=== PATIENT | female | born 1960 | race Caucasian/White ===

== ENCOUNTER 2016-11-15 11:39 | Inpatient (IN) | payer BC, MEDICAID ==
[2016-11-15] MEDS ORDERED: IPRATROPIUM/ALBUTEROL 0.5-2.5 MG/3 ML AMPUL NEB ONE (11:46)
--- NOTE | 2016-11-15 11:51 | ER Document Report ---
ED Medical Screen (RME) - General Stated Complaint: CHEST PAIN Time seen by provider: 11:48 Mode of Arrival: Wheelchair Information source: Patient Notes: 56-year-old COPD year with respiratory distress tachypnea, shortness of breath, chest pain, pulse ox 82%. She wears oxygen 3 L nasal cannula at home. sHe taken to room 4 and asked the nurses to start DuoNeb and place on the organizational research consultant. I called Dr. SCHAFFER to have provider see the patient immediately. I have greeted and performed a rapid initial assessment of this patient. A comprehensive ED assessment, evaluation of the patient, analysis of test results , and completion of the medical decision making process will be contacted by additional ED providers. TRAVEL OUTSIDE OF THE [place] IN LAST 30 DAYS: No - Related Data Allergies/Adverse Reactions: doxepin [Doxepin] Allergy (Verified 09/02/16 19:54) Shortness of Breath, Swelling etodolac [Etodolac] Allergy (Verified 09/02/16 19:54) loratadine [Loratadine] Allergy (Verified 09/02/16 19:54) Shortness of Breath, Swelling meloxicam [Meloxicam] Allergy (Verified 09/02/16 19:54) Sulfa (Sulfonamide Antibiotics) Allergy (Verified 09/02/16 19:54) Shortness of Breath, Swelling Past Medical History Pulmonary Medical History: Reports: Hx Asthma, Hx Bronchitis, Hx COPD - O2 dependent, 3 L nasal cannula, Hx Pneumonia - Recurrent pseudomonal pneumonia Neurological Medical History: Reports: Hx Migraine Endocrine Medical History: Denies: Hx Diabetes Mellitus Type 1, Hx Diabetes Mellitus Type 2 GI Medical History: Reports: Hx Gastroesophageal Reflux Disease Traumatic Medical History: Reports: Hx Pneumothorax - x4 R lung, 2010 when the patient had a right lung bx required a chest tube Past Surgical History: Reports: Hx Gynecologic Surgery, Hx Hysterectomy, Hx Tonsillectomy, Hx Tubal Ligation - Immunizations Hx Diphtheria, Pertussis, Tetanus Vaccination: Yes
--- NOTE | 2016-11-15 12:01 | ER Document Report ---
ED Respiratory Problem - General Mode of Arrival: Wheelchair Information source: Patient TRAVEL OUTSIDE OF THE [place] IN LAST 30 DAYS: No - HPI Patient complains to provider of: Cough, Short of breath Onset: Other - 2 days ago Duration: Worse/persistent Context: Other - see above Cough: Productive Sputum color: Green Associated symptoms: Other - see above <FABINA VIVEROS - Last Filed: 11/15/16 13:08> <CHAPO BEGUM - Last Filed: 11/15/16 13:36> - General Chief Complaint: Shortness Of Breath Stated Complaint: CHEST PAIN Notes: 56 year old female with history of COPD, bronchitis, pneumonia, and asthma presents to the ED complaining of shortness of breath that started 2 days ago. Patient states that she has been using breathing treatments at home, but they have only been helping temporarily. Patient states that she was hoping that the breathing treatments would have worked better and is the reason she waited so long before coming in. Patient is additionally complaining of a productive cough with green sputum. (FABIAN VIVEROS) - Related Data Allergies/Adverse Reactions: doxepin [Doxepin] Allergy (Verified 09/02/16 19:54) Shortness of Breath, Swelling etodolac [Etodolac] Allergy (Verified 09/02/16 19:54) loratadine [Loratadine] Allergy (Verified 09/02/16 19:54) Shortness of Breath, Swelling meloxicam [Meloxicam] Allergy (Verified 09/02/16 19:54) Sulfa (Sulfonamide Antibiotics) Allergy (Verified 09/02/16 19:54) Shortness of Breath, Swelling Past Medical History - General Information source: Patient - Social History Smoking Status: Current Every Day Smoker Family History: Hyperlipidemia, Hypertension Pulmonary Medical History: Reports: Hx Asthma, Hx Bronchitis, Hx COPD - O2 dependent, 3 L nasal cannula [id number] Deficiency, Hx Pneumonia - Recurrent pseudomonal pneumonia, Other - Right lung pneumothorax x4 secondary to lung biopsy in 2010 Neurological Medical History: Reports: Hx Migraine GI Medical History: Reports: Hx Gastroesophageal Reflux Disease Traumatic Medical History: Reports: Hx Pneumothorax - x4 R lung, 2010 when the patient had a right lung bx required a chest tube Past Surgical History: Reports: Hx Gynecologic Surgery, Hx Hysterectomy, Hx Tonsillectomy, Hx Tubal Ligation - Immunizations Hx Diphtheria, Pertussis, Tetanus Vaccination: Yes Hx Pneumococcal Vaccination: 04/25/09 <FABIAN VIVEROS - Last Filed: 11/15/16 13:08> Review of Systems - Review of Systems Constitutional: No symptoms reported EENT: No symptoms reported Cardiovascular: No symptoms reported Respiratory: See HPI, Cough - productive green sputum, Short of breath Gastrointestinal: No symptoms reported Genitourinary: No symptoms reported Female Genitourinary: No symptoms reported Musculoskeletal: No symptoms reported Skin: No symptoms reported Hematologic/Lymphatic: No symptoms reported Neurological/Psychological: No symptoms reported -: Yes All other systems reviewed and negative <FABIAN VIVEROS - Last Filed: 11/15/16 13:08> Physical Exam - General General appearance: Alert - HEENT Head: Normocephalic, Atraumatic Eyes: Normal Extraocular movements intact: Yes Pupils: PERRL - Respiratory Respiratory status: Retractions, Tachypnea. No: No respiratory distress Breath sounds: Rhonchi, Wheezing, Other - markedly diminished lung sounds on the left - Cardiovascular Rhythm: Regular, Tachycardia Heart sounds: Normal auscultation - Abdominal Inspection: Normal - Back Back: Normal - Extremities General upper extremity: Normal inspection, Normal ROM General lower extremity: Normal inspection, Normal ROM - Neurological Neuro grossly intact: Yes - Psychological Associated symptoms: Normal affect, Normal mood - Skin Skin Temperature: Warm Skin Moisture: Dry Skin Color: Normal <FABIAN VIVEROS - Last Filed: 11/15/16 13:08> Course - Laboratory Result Diagrams: 11/15/16 12:30 11/15/16 12:30 <FABIAN VIVEROS - Last Filed: 11/15/16 13:08> - Laboratory Result Diagrams: 11/15/16 12:30 11/15/16 12:30 - Diagnostic Test Radiology reviewed: Image reviewed, Reports reviewed - A large left lower lobe infiltrate obscuring the hilum - EKG Interpretation by Me EKG shows normal: Sinus rhythm, Stamping [place], Intervals. abnormal: QRS Complexes, ST-T Waves - Inferior T abnormalities Rate: Tachycardia - 127 Stamping Ground/QRS: LPHB/LPFB Voltage: Consistant with LVH - Consults Dr. Henderson Time consulted: 13:33 Consulted provider: will come to ER <CHAPO BEGUM - Last Filed: 11/15/16 13:36> - Re-evaluation Re-evalutation: 11/15/16 12:32 PROCEEDURE: ABG obtained by me from the right radial artery at the wrist. The skin was prepped with alcohol prior to obtaining the blood gas. It was obtained without difficulty on the first stick. A 2 x 2 was placed over the puncture site and held down using a Band-Aid to put pressure on the puncture site. Patient reports her breathing is a little bit better with the BiPAP. (CHAPO BEGUM) - Vital Signs Vital signs: Temp Pulse Resp BP Pulse Ox 35 H 92/69 L 91 L 11/15/16 13:01 11/15/16 13:01 11/15/16 13:01 - Laboratory Laboratory results interpreted by me: 11/15/16 11/15/16 11/15/16 12:30 12:30 12:30 WBC 23.8 H RDW 16.1 H Plt Count 133 L Band Neutrophils % 15 H Lymphocytes % (Manual) 5 L Abs Neuts (Manual) 21.9 H Carbonic Acid 2.00 H ABG pH 7.34 L ABG pCO2 66.3 H ABG pO2 41.8 L ABG HCO3 35.0 H ABG Total CO2 37.0 H ABG O2 Saturation 72.7 L Chloride 91 L Carbon Dioxide 36 H Total Bilirubin 1.4 H Critical Care Note - Critical Care Note Total time excluding time spent on procedures (mins): 45 <CHAPO BEGUM - Last Filed: 11/15/16 13:36> Discharge <FABIAN VIVEROS - Last Filed: 11/15/16 13:08> - Discharge Admitting Provider: Hospitalist Unit Admitted: ICU <CHAPO BEGUM - Last Filed: 11/15/16 13:36> - Discharge Clinical Impression: COPD with respiratory distress, acute, Acute respiratory failure with hypoxia Pneumonia Qualifiers: Pneumonia type: due to unspecified organism Laterality: left Lung location: upper lobe of lung Qualified Code(s): J18.1 - Lobar pneumonia, unspecified organism Condition: Fair Disposition: ADMITTED INPATIENT Scribe Attestation: 11/15/16 13:35 I personally performed the services described in the documentation, reviewed and edited the documentation which was dictated to the scribe in my presence, and it accurately records my words and actions. (CHAPO BEGUM) Scribe Documentation - Scribe Written by Scribe:: Pankaj Desir, 11/15/2016 12:20 acting as scribe for :: Margo <FABIAN VIVEROS - Last Filed: 11/15/16 13:08>
[2016-11-15] MEDS ORDERED: AZITHROMYCIN INJ 500 MG VIAL IV ONE (12:25)
[2016-11-15] MEDS ORDERED: CEFTRIAXONE 1 GM/D5W RTU 50 ML IV ONE (12:25)
[2016-11-15] MEDS ORDERED: ALBUTEROL SULFATE 0.083% NEB 2.5 MG/3 ML AMPUL NEB ONE (12:33)
[2016-11-15] MEDS ORDERED: METHYLPREDNISOLONE INJ 125 MG/2 ML SDV IV ONE (12:33)
[2016-11-15] MEDS ORDERED: MAGNESIUM SULFATE/D5W 100 ML IV ONE (12:34)
[2016-11-15 12:56] LABS: ARTERIAL BLOOD BASE EXCESS 6.6 mmol/L; ARTERIAL BLOOD O2 SATURATION 72.7 % (94-98)
[2016-11-15 12:57] LABS: HEMOGLOBIN 14.5 g/dL (12.0-15.5); HGB HCT DIFFERENCE -1.5; MEAN CORPUSCULAR HEMOGLOBIN 29.6 pg (27.0-33.4); MEAN CORPUSCULAR HGB CONC 32.2 g/dL (32.0-36.0); MEAN CORPUSCULAR VOLUME 92 fl (80-97); RED CELL DISTRIBUTION WIDTH 16.1 % (11.5-14.0); WHITE BLOOD COUNT 23.8 10^3/uL (4.0-10.5)
[2016-11-15 13:12] LABS: BASOPHILS % (MANUAL) 0 % (0-2); EOSINOPHILS % (MANUAL) 0 % (0-6); LYMPHOCYTES % (MANUAL) 5 % (13-45); TOTAL CELLS COUNTED 100
[2016-11-15 13:13] LABS: BAND NEUTROPHILS % (MANUAL) 15 % (3-5); RBC MORPHOLOGY COMMENT NORMO-CYTIC/CHROMIC
[2016-11-15 13:18] LABS: ALANINE AMINOTRANSFERASE 32 U/L (9-52); ALBUMIN 4.2 g/dL (3.5-5.0); ALKALINE PHOSPHATASE 72 U/L (38-126); ANION GAP 14 (5-19); ASPARTATE AMINO TRANSFERASE 25 U/L (14-36); BILIRUBIN,TOTAL 1.4 mg/dL (0.2-1.3); BLOOD UREA NITROGEN 18 mg/dL (7-20); CALCIUM 9.4 mg/dL (8.4-10.2); CARBON DIOXIDE 36 mmol/L (22-30); CHLORIDE 91 mmol/L (98-107); CREATINE KINASE 32 U/L (30-135); CREATININE RESULT 0.62 mg/dL (0.52-1.25); GLUCOSE 99 mg/dL (75-110); MAGNESIUM 1.7 mg/dL (1.6-2.3); POTASSIUM 4.5 mmol/L (3.6-5.0); SODIUM 140.9 mmol/L (137-145)
[2016-11-15 13:28] LABS: CREATINE KINASE MB 1.1 ng/mL (<4.55); TROPONIN I 0.02 ng/mL
[2016-11-15] MEDS ORDERED: NORMAL SALINE 1000 ML 200 ML IV ONE (13:29)
[2016-11-15] MEDS ORDERED: NORMAL SALINE 1000 ML 250 ML IV ONE (13:31)
[2016-11-15] MEDS ORDERED: NORMAL SALINE 1000 ML 1,000 ML IV PRN (14:23)
[2016-11-15] MEDS ORDERED: PIPERACILLIN/TAZOBACTAM 3.375 GM VIAL IV SCH (14:45)
--- NOTE | 2016-11-15 14:49 | PDOC H&P ---
History of Present Illness Admission Date/PCP: 11/15/16 13:59 LUH MARTINS MD Patient complains of: Shortness of breath History of Present Illness: AUDIE KIMBLE is a 56 year old female, with history of COPD in chronic smoker , chronic hypoxemic respiratory failure on 3 L nasal cannula oxygen at home, alpha-1 antitrypsin deficiency, pseudomonas pneumonia, presents to the hospital with shortness of breath of 3 days' duration. It is associated with pleuritic chest pain as well as cough productive of greenish phlegm. There is intermittent low-grade fever and occasional sweating. There is no recent traveling or exposure to someone sick with a virus or tuberculosis. The patient had intermittent sore throat for the past few days subsequently started to develop shortness of breath and wheezing 3 days ago and eventual pleurisy. There is no diaphoresis. No nausea or vomiting. Patient is unable to lay flat in bed. Patient went to the emergency room in the left upper lobe infiltrate was noted on chest x-ray. Patient was given intravenous antibiotic, bronchodilators, and a dose of intravenous steroid and was referred for admission. Past Medical History Past Medical History: Medication reconciliation pending verification from the patient's pharmacist. Pulmonary Medical History: Reports: Asthma, Bronchitis, Chronic Obstructive Pulmonary Disease (COPD) - O2 dependent, 3 L nasal cannula [id number] Deficiency, Pneumonia - Recurrent pseudomonal pneumonia, Other - Right lung pneumothorax x4 secondary to lung biopsy in 2010 Neurological Medical History: Reports: Migraine Endocrine Medical History: Reports: Other - Alpha-1 antitrypsin deficiency Denies: Diabetes Mellitus Type 1, Diabetes Mellitus Type 2 GI Medical History: Reports: Gastroesophageal Reflux Disease Traumatic Medical History: Reports: Pneumothorax - x4 R lung, 2010 when the patient had a right lung bx required a chest tube Past Surgical History Past Surgical History: Reports: Hysterectomy, Tonsillectomy, Tubal Ligation Social History Information Source: Patient Smoking Status: Current Every Day Smoker Frequency of Alcohol Use: None Hx Recreational Drug Use: No Drugs: None Hx Prescription Drug Abuse: No Family History Family History: Hyperlipidemia, Hypertension Parental Family History Reviewed: Yes Children Family History Reviewed: Yes Sibling(s) Family History Reviewed.: Yes Medication/Allergy Home Medications: No Home Medications 11/15/16 Allergies/Adverse Reactions: doxepin [Doxepin] Allergy (Verified 09/02/16 19:54) Shortness of Breath, Swelling etodolac [Etodolac] Allergy (Verified 09/02/16 19:54) loratadine [Loratadine] Allergy (Verified 09/02/16 19:54) Shortness of Breath, Swelling meloxicam [Meloxicam] Allergy (Verified 09/02/16 19:54) Sulfa (Sulfonamide Antibiotics) Allergy (Verified 09/02/16 19:54) Shortness of Breath, Swelling Review of Systems Constitutional: PRESENT: chills, fever(s), weakness - Generalized. ABSENT: headache(s), night sweats, weight gain, weight loss Eyes: ABSENT: visual disturbances Ears: ABSENT: hearing changes Nose, Mouth, and Throat: PRESENT: sore throat. ABSENT: mouth pain, vertigo Cardiovascular: PRESENT: chest pain, dyspnea on exertion - Chronic worse per the past few days. ABSENT: edema, orthropnea, palpitations Respiratory: PRESENT: dyspnea, sputum - Greenish. ABSENT: cough, hemoptysis Gastrointestinal: ABSENT: abdominal pain, bloating, constipation, diarrhea, hematemesis, hematochezia, melena, nausea, vomiting Genitourinary: ABSENT: dysuria, hematuria Musculoskeletal: ABSENT: joint swelling Integumentary: ABSENT: pruritus, rash, wounds Neurological: ABSENT: abnormal gait, abnormal speech, confusion, dizziness, focal weakness, syncope Psychiatric: ABSENT: anxiety, depression, homidical ideation, suicidal ideation Endocrine: ABSENT: cold intolerance, heat intolerance, polydipsia, polyphagia, polyuria Hematologic/Lymphatic: ABSENT: easy bleeding, easy bruising Physical Exam Vital Signs: Temp Pulse Resp BP Pulse Ox 33 H 93/67 L 93 11/15/16 13:43 11/15/16 13:43 11/15/16 13:43 General appearance: PRESENT: cooperative, mild distress, thin, other - On BiPAP Head exam: PRESENT: atraumatic, normocephalic Eye exam: PRESENT: conjunctiva pink, EOMI, PERRLA. ABSENT: scleral icterus Ear exam: PRESENT: normal external ear exam. ABSENT: drainage Mouth exam: PRESENT: dry mucosa, neck supple, tongue midline. ABSENT: laceration Throat exam: ABSENT: post pharyngeal erythema, tonsillar exudate Neck exam: ABSENT: carotid bruit, JVD, lymphadenopathy, thyromegaly Respiratory exam: PRESENT: crackles - Left side, wheezes - Mild posteriorly bilateral. ABSENT: rales, rhonchi Cardiovascular exam: PRESENT: RRR, +S1, +S2, tachycardia. ABSENT: diastolic murmur, rubs, systolic murmur Pulses: PRESENT: normal dorsalis pedis pul Vascular exam: PRESENT: normal capillary refill GI/Abdominal exam: PRESENT: normal bowel sounds, soft. ABSENT: distended, guarding, mass, organolmegaly, rebound, tenderness Rectal exam: PRESENT: deferred Extremities exam: PRESENT: full ROM, other - Trace edema bilateral. ABSENT: calf tenderness, clubbing Neurological exam: PRESENT: alert, awake, oriented to person, oriented to place , oriented to time, oriented to situation, CN II-XII grossly intact. ABSENT: motor sensory deficit Psychiatric exam: PRESENT: appropriate affect, normal mood. ABSENT: homicidal ideation, suicidal ideation Skin exam: PRESENT: dry, intact, warm. ABSENT: cyanosis, rash Results Impressions: Chest X-Ray 11/15/16 12:01 IMPRESSION: Dense consolidation in the left upper lobe obscuring the left hilum and heart border worrisome for pneumonia. Underlying obstructive lung disease Assessment & Plan - Diagnosis (1) Acute on chronic respiratory failure Qualifiers: Respiratory failure complication: hypoxia and hypercapnia Qualified Code(s): J96.21 - Acute and chronic respiratory failure with hypoxia Is this a current diagnosis for this admission?: Yes (2) COPD exacerbation Is this a current diagnosis for this admission?: Yes (3) Pneumonia Qualifiers: Pneumonia type: due to unspecified organism Laterality: left Lung location: upper lobe of lung Qualified Code(s): J18.1 - Lobar pneumonia, unspecified organism Is this a current diagnosis for this admission?: Yes (4) Sepsis Qualifiers: Sepsis type: sepsis due to unspecified organism Qualified Code(s): A41.9 - Sepsis, unspecified organism Is this a current diagnosis for this admission?: Yes (5) Hypertension Qualifiers: Hypertension type: essential hypertension Qualified Code(s): I10 - Essential (primary) hypertension Is this a current diagnosis for this admission?: Yes (6) Udjyw-9-hjgkrpcxomo deficiency Is this a current diagnosis for this admission?: Yes (7) Tobacco abuse Is this a current diagnosis for this admission?: Yes (8) Restless legs syndrome Is this a current diagnosis for this admission?: Yes - Time Time Spent: 50 to 70 Minutes Anticipated discharge: Home with Homehealth - Inpatient Certification Based on my medical assessment, after consideration of the patient's comorbidities, presenting symptoms, or acuity I expect that the services needed warrant INPATIENT care.: Yes I certify that my determination is in accordance with my understanding of Medicare's requirements for reasonable and necessary INPATIENT services [42 CFR 412.3e].: Yes Medical Necessity: Significant Comorbidiites Make Outpatient Treatment Too Risky , Need Close Monitoring Due to Risk of Patient Decompensation, Need For IV Fluids, Need For Continuous Telemetry Monitoring, Need for Nebulizer Therapy and Monitoring of Response, Need for IV Antibiotics Post Hospital Care: D/C Supervisor Building Maintenance Documentation - Plan Summary Plan Summary: The patient will be admitted to [facility]. We will give intravenous fluids. We will hold her antihypertensive medication. In the meantime we will culture the sputum and the blood. I will begin the patient. Intravenous Zosyn and inhaled tobramycin. We will start intravenous steroids and raldmz-ffl-[id number] bronchodilators as well. Antipyretics as well as mucolytics will be given as needed. DVT prophylaxis with Lovenox will be placed. We will continue the BiPAP and wean as per respiratory protocol. Further testing depends on the initial evaluation and response to treatment as outlined above.
--- NOTE | 2016-11-15 15:17 | EKG REPORT ---
SEVERITY:- ABNORMAL ECG - SINUS TACHYCARDIA LEFT POSTERIOR FASCICULAR BLOCK CONSIDER LEFT VENTRICULAR HYPERTROPHY BORDERLINE T ABNORMALITIES, INFERIOR LEADS : Confirmed by: Shana Greene MD 15-Nov-2016 15:16:50
[2016-11-15] MEDS ORDERED: ENOXAPARIN SODIUM INJ 40 MG/0.4 ML DISP.SYRIN SUBCUT ONE (16:00)
[2016-11-15] MEDS: LEVALBUTEROL HCL NEB 1.25 MG/3 ML AMPUL NEB PRN (17:00)
[2016-11-15] MEDS: DEXTROSE 5%-WATER 250 ML with NOREPINEPHRINE BITARTRATE 4 MG IV PRN ×2 (17:37)
[2016-11-15] MEDS: METHYLPREDNISOLONE INJ 125 MG/2 ML SDV IV SCH ×2 (18:09→23:08)
[2016-11-15] MEDS: PIPERACILLIN SODIUM/TAZOBACTAM 3.375 GM in NORMAL SALINE 100 ML IV SCH ×2 (18:09→23:07)
[2016-11-15] MEDS: IPRATROPIUM BROMIDE 0.02% NEB 0.5 MG/2.5 ML AMPUL NEB SCH (20:56)
[2016-11-15] MEDS: LEVALBUTEROL HCL NEB 1.25 MG/3 ML AMPUL NEB SCH (20:56)
[2016-11-15] MEDS: TOBRAMYCIN SULFATE NEB 40 MG/ML 30 ML NEB SCH (20:57)
[2016-11-15] MEDS: GUAIFENESIN 600 MG TABLET.SA PO SCH (23:02)
[2016-11-15] MEDS: MONTELUKAST SODIUM 10 MG TABLET PO SCH (23:03)
[2016-11-16] MEDS: LEVALBUTEROL HCL NEB 1.25 MG/3 ML AMPUL NEB SCH ×4 (02:46→20:53)
[2016-11-16] MEDS: IPRATROPIUM BROMIDE 0.02% NEB 0.5 MG/2.5 ML AMPUL NEB SCH ×4 (02:46→20:53)
[2016-11-16 04:52] LABS: HEMATOCRIT 38.9 % (36.0-47.0); HEMOGLOBIN 12.5 g/dL (12.0-15.5); HGB HCT DIFFERENCE -1.4; MEAN CORPUSCULAR HEMOGLOBIN 29.7 pg (27.0-33.4); MEAN CORPUSCULAR HGB CONC 32.2 g/dL (32.0-36.0); MEAN CORPUSCULAR VOLUME 92 fl (80-97); RED BLOOD COUNT 4.21 10^6/uL (3.72-5.28); WHITE BLOOD COUNT 18.9 10^3/uL (4.0-10.5)
[2016-11-16 05:06] LABS: BAND NEUTROPHILS % (MANUAL) 9 % (3-5); BASOPHILS % (MANUAL) 0 % (0-2); EOSINOPHILS % (MANUAL) 0 % (0-6); LYMPHOCYTES % (MANUAL) 2 % (13-45); TOTAL CELLS COUNTED 100
[2016-11-16 05:11] LABS: ANISOCYTOSIS 1+; OVALOCYTES 1+; TEAR DROP CELLS 1+
[2016-11-16 05:14] LABS: ANION GAP 7 (5-19); BLOOD UREA NITROGEN 23 mg/dL (7-20); CALCIUM 8.5 mg/dL (8.4-10.2); CARBON DIOXIDE 35 mmol/L (22-30); CHLORIDE 100 mmol/L (98-107); CREATININE RESULT 0.59 mg/dL (0.52-1.25); GLUCOSE 127 mg/dL (75-110); POTASSIUM 4.8 mmol/L (3.6-5.0); SODIUM 142.3 mmol/L (137-145)
[2016-11-16] MEDS: METHYLPREDNISOLONE INJ 125 MG/2 ML SDV IV SCH ×3 (05:57→18:08)
[2016-11-16] MEDS: PIPERACILLIN SODIUM/TAZOBACTAM 3.375 GM in NORMAL SALINE 100 ML IV SCH ×3 (05:57→18:08)
[2016-11-16] MEDS: LANSOPRAZOLE 30 MG TAB.RAP.DR PO SCH (05:57)
--- NOTE | 2016-11-16 08:27 | PDOC PROGRESS REPORT ---
Subjective Progress Note for:: 11/16/16 Subjective:: Patient is feeling better. Shortness of breath is better. Coughing is less. Wheezing resolved. Still with pleurisy. Denies any temperature spikes, nausea or vomiting, diarrhea. He remained on BiPAP and Levophed as blood pressure still on the low side. Physical Exam Vital Signs: Temp Pulse Resp BP Pulse Ox 99.3 F 97 29 H 94/73 L 99 11/16/16 06:00 11/16/16 02:45 11/16/16 06:01 11/16/16 06:00 11/16/16 06:01 Intake & Output 11/15/16 11/16/16 11/17/16 06:59 06:59 06:59 Intake Total 1750 Output Total 290 Balance 1460 Weight 61.1 kg General appearance: PRESENT: no acute distress, other - On BiPAP Head exam: PRESENT: normocephalic Eye exam: PRESENT: EOMI, PERRLA Mouth exam: PRESENT: moist, neck supple Neck exam: ABSENT: JVD Respiratory exam: PRESENT: decreased breath sounds, rhonchi - Review of bilateral, unlabored. ABSENT: retraction, wheezes Cardiovascular exam: PRESENT: RRR. ABSENT: gallop GI/Abdominal exam: PRESENT: normal bowel sounds, soft. ABSENT: distended, tenderness Extremities exam: ABSENT: pedal edema Neurological exam: PRESENT: alert, awake, oriented to situation Skin exam: PRESENT: dry, warm. ABSENT: cyanosis Results Laboratory Results: 11/16/16 04:22 11/16/16 04:22 11/15/16 11/16/16 11/16/16 19:53 04:22 04:22 WBC 18.9 H RBC 4.21 Hgb 12.5 Hct 38.9 MCV 92 MCH 29.7 MCHC 32.2 RDW 16.0 H Plt Count 81 L Seg Neutrophils % Not Reportable Lymphocytes % Not Reportable Monocytes % Not Reportable Eosinophils % Not Reportable Basophils % Not Reportable Absolute Neutrophils Not Reportable Absolute Lymphocytes Not Reportable Absolute Monocytes Not Reportable Absolute Eosinophils Not Reportable Absolute Basophils Not Reportable Sodium 142.3 Potassium 4.8 Chloride 100 Carbon Dioxide 35 H Anion Gap 7 BUN 23 H Creatinine 0.59 Est GFR ( Amer) > 60 Est GFR (Non-Af Amer) > 60 Glucose 127 H Lactic Acid 1.5 Calcium 8.5 Impressions: Chest X-Ray 11/15/16 12:01 IMPRESSION: Dense consolidation in the left upper lobe obscuring the left hilum and heart border worrisome for pneumonia. Underlying obstructive lung disease Assessment & Plan - Diagnosis (1) Acute on chronic respiratory failure Qualifiers: Respiratory failure complication: hypoxia and hypercapnia Qualified Code(s): J96.21 - Acute and chronic respiratory failure with hypoxia Is this a current diagnosis for this admission?: Yes (2) COPD exacerbation Is this a current diagnosis for this admission?: Yes (3) Pneumonia Qualifiers: Pneumonia type: due to unspecified organism Laterality: left Lung location: upper lobe of lung Qualified Code(s): J18.1 - Lobar pneumonia, unspecified organism Is this a current diagnosis for this admission?: Yes (4) Sepsis Qualifiers: Sepsis type: sepsis due to unspecified organism Qualified Code(s): A41.9 - Sepsis, unspecified organism Is this a current diagnosis for this admission?: Yes (5) Hypertension Qualifiers: Hypertension type: essential hypertension Qualified Code(s): I10 - Essential (primary) hypertension Is this a current diagnosis for this admission?: Yes (6) Gnakt-[id number]-[id number] deficiency Is this a current diagnosis for this admission?: Yes (7) Tobacco abuse Is this a current diagnosis for this admission?: Yes (8) Restless legs syndrome Is this a current diagnosis for this admission?: Yes - Time Time Spent with patient: 25-34 minutes - Plan Summary Plan Summary: Continue vasopressors and wean per protocol. Continue IV fluids. Keep the patient in the ICU for now. Recheck WBC in the morning. Continue antibiotics and follow culture. History of recurrent pseudomonas pneumonia.
[2016-11-16] MEDS: ENOXAPARIN SODIUM INJ 40 MG/0.4 ML DISP.SYRIN SUBCUT SCH (08:33)
[2016-11-16] MEDS: TOBRAMYCIN SULFATE NEB 40 MG/ML 30 ML NEB SCH ×2 (08:38→20:54)
[2016-11-16 09:25] LABS: ARTERIAL BLOOD BASE EXCESS 6.9 mmol/L; ARTERIAL BLOOD O2 SATURATION 85.8 % (94-98)
[2016-11-16] MEDS: DEXTROSE 5%-WATER 250 ML with NOREPINEPHRINE BITARTRATE 4 MG IV PRN ×2 (10:38)
[2016-11-16] MEDS: ASPIRIN 81 MG TABLET, ENT COATED PO SCH (11:04)
[2016-11-16] MEDS: GUAIFENESIN 600 MG TABLET.SA PO SCH ×2 (11:05→21:47)
[2016-11-16] MEDS: NORMAL SALINE 1000 ML 1,000 ML IV PRN ×2 (11:51→19:26)
[2016-11-16] MEDS: TRAMADOL HCL 50 MG TABLET PO PRN (18:32)
[2016-11-16] MEDS: MONTELUKAST SODIUM 10 MG TABLET PO SCH (21:47)
[2016-11-17] MEDS: METHYLPREDNISOLONE INJ 125 MG/2 ML SDV IV SCH ×4 (00:52→17:57)
[2016-11-17] MEDS: PIPERACILLIN SODIUM/TAZOBACTAM 3.375 GM in NORMAL SALINE 100 ML IV SCH ×4 (00:52→17:57)
[2016-11-17] MEDS: LEVALBUTEROL HCL NEB 1.25 MG/3 ML AMPUL NEB SCH ×4 (02:15→20:37)
[2016-11-17] MEDS: IPRATROPIUM BROMIDE 0.02% NEB 0.5 MG/2.5 ML AMPUL NEB SCH ×4 (02:15→20:37)
[2016-11-17] MEDS: NORMAL SALINE 1000 ML 1,000 ML IV PRN ×2 (04:52→09:45)
[2016-11-17] MEDS: LANSOPRAZOLE 30 MG TAB.RAP.DR PO SCH (05:19)
[2016-11-17 06:53] LABS: HGB HCT DIFFERENCE -1.7; MEAN CORPUSCULAR HEMOGLOBIN 29.5 pg (27.0-33.4); MEAN CORPUSCULAR HGB CONC 31.4 g/dL (32.0-36.0); MEAN CORPUSCULAR VOLUME 94 fl (80-97); RED BLOOD COUNT 3.41 10^6/uL (3.72-5.28); RED CELL DISTRIBUTION WIDTH 16.5 % (11.5-14.0); WHITE BLOOD COUNT 7.9 10^3/uL (4.0-10.5)
[2016-11-17 07:20] LABS: HEMOGLOBIN 10.1 g/dL (12.0-15.5)
[2016-11-17 07:24] LABS: BAND NEUTROPHILS % (MANUAL) 4 % (3-5); BASOPHILS % (MANUAL) 0 % (0-2); EOSINOPHILS % (MANUAL) 0 % (0-6); LYMPHOCYTES % (MANUAL) 3 % (13-45); TOTAL CELLS COUNTED 100
[2016-11-17 07:28] LABS: ANISOCYTOSIS 1+; POLYCHROMASIA SLIGHT
[2016-11-17] MEDS: TOBRAMYCIN SULFATE NEB 40 MG/ML 30 ML NEB SCH (08:48)
--- NOTE | 2016-11-17 09:07 | PDOC PROGRESS REPORT ---
Subjective Progress Note for:: 11/17/16 Subjective:: Patient is feeling better. Shortness of breath is better. Coughing is less. Wheezing intermittent. Still with pleurisy. Denies any temperature spikes, nausea or vomiting, diarrhea. She is off BiPAP and Levophed as blood pressure has been normal . Physical Exam Vital Signs: Temp Pulse Resp BP Pulse Ox 98.1 F 110 H 24 H 93/73 L 98 11/17/16 08:24 11/17/16 08:24 11/17/16 08:24 11/17/16 08:24 11/17/16 08:24 Intake & Output 11/16/16 11/17/16 11/18/16 06:59 06:59 06:59 Intake Total 1750 4504 Output Total 290 845 Balance 1460 3659 Weight 61.1 kg 60.4 kg General appearance: PRESENT: no acute distress, cooperative, mild distress, other - Nasal cannula oxygen Head exam: PRESENT: normocephalic Eye exam: PRESENT: EOMI Mouth exam: PRESENT: moist, neck supple Neck exam: ABSENT: JVD Respiratory exam: PRESENT: wheezes - Minimal, other - Air entry is fair. ABSENT : accessory muscle use Cardiovascular exam: PRESENT: RRR. ABSENT: gallop GI/Abdominal exam: PRESENT: hypoactive bowel sounds, soft. ABSENT: distended, tenderness Extremities exam: ABSENT: pedal edema Neurological exam: PRESENT: alert, awake, oriented to situation Skin exam: PRESENT: dry, warm. ABSENT: cyanosis Results Laboratory Results: 11/17/16 06:00 11/16/16 04:22 11/16/16 11/17/16 08:50 06:00 WBC 7.9 RBC 3.41 L Hgb 10.1 L D Hct 32.0 L MCV 94 MCH 29.5 MCHC 31.4 L RDW 16.5 H Plt Count 74 L Seg Neutrophils % Not Reportable Lymphocytes % Not Reportable Monocytes % Not Reportable Eosinophils % Not Reportable Basophils % Not Reportable Absolute Neutrophils Not Reportable Absolute Lymphocytes Not Reportable Absolute Monocytes Not Reportable Absolute Eosinophils Not Reportable Absolute Basophils Not Reportable Carbonic Acid 1.86 H HCO3/H2CO3 Ratio 18:1 ABG pH 7.36 ABG pCO2 61.8 H ABG pO2 54.0 L ABG HCO3 34.0 H ABG O2 Saturation 85.8 L ABG Base Excess 6.9 FiO2 35% 11/15/16 17:20 Catheterized Urine Urine Culture - Final NO GROWTH 2 DAYS Impressions: Chest X-Ray 11/15/16 12:01 IMPRESSION: Dense consolidation in the left upper lobe obscuring the left hilum and heart border worrisome for pneumonia. Underlying obstructive lung disease Assessment & Plan - Diagnosis (1) Acute on chronic respiratory failure Qualifiers: Respiratory failure complication: hypoxia and hypercapnia Qualified Code(s): J96.21 - Acute and chronic respiratory failure with hypoxia Is this a current diagnosis for this admission?: Yes (2) COPD exacerbation Is this a current diagnosis for this admission?: Yes (3) Pneumonia Qualifiers: Pneumonia type: due to unspecified organism Laterality: left Lung location: upper lobe of lung Qualified Code(s): J18.1 - Lobar pneumonia, unspecified organism Is this a current diagnosis for this admission?: Yes (4) Sepsis Qualifiers: Sepsis type: sepsis due to unspecified organism Qualified Code(s): A41.9 - Sepsis, unspecified organism Is this a current diagnosis for this admission?: Yes (5) Hypertension Qualifiers: Hypertension type: essential hypertension Qualified Code(s): I10 - Essential (primary) hypertension Is this a current diagnosis for this admission?: Yes (6) [id number] deficiency Is this a current diagnosis for this admission?: Yes (7) Tobacco abuse Is this a current diagnosis for this admission?: Yes (8) Restless legs syndrome Is this a current diagnosis for this admission?: Yes - Time Time Spent with patient: 25-34 minutes - Plan Summary Plan Summary: Transferred to [facility], [place], continue current steroid dose. Sputum culture was showing gram-positive cocci in pairs, we will therefore discontinue tobramycin inhaler but keep the other IV antibiotics pending culture report. Patient is clinically improving. Hematocrit drop we will check B12 level as well as stool for blood. If the patient continues to improve, begin physical therapy in 24 hours. Continue bronchodilators. I will resume her inhaled steroids. Continue supportive care.
[2016-11-17] MEDS: GUAIFENESIN 600 MG TABLET.SA PO SCH ×2 (09:39→21:38)
[2016-11-17] MEDS: ASPIRIN 81 MG TABLET, ENT COATED PO SCH (09:58)
[2016-11-17] MEDS: ENOXAPARIN SODIUM INJ 40 MG/0.4 ML DISP.SYRIN SUBCUT SCH (09:58)
[2016-11-17] MEDS: TRAMADOL HCL 50 MG TABLET PO PRN ×2 (12:26→20:10)
[2016-11-17] MEDS: BUDESONIDE/FORMOTEROL 160-4.5 MCG 60 PUFF/6 GM MDI IH SCH ×2 (13:16→21:39)
[2016-11-17] MEDS: LEVALBUTEROL HCL NEB 1.25 MG/3 ML AMPUL NEB PRN (14:10)
[2016-11-17 19:22] LABS: PATH REVIEW PATHOLOGIST REVIEWED
[2016-11-17] MEDS: ROPINIROLE HCL 1 MG TABLET PO PRN (20:10)
[2016-11-17] MEDS: MONTELUKAST SODIUM 10 MG TABLET PO SCH (21:39)
[2016-11-18] MEDS: PIPERACILLIN SODIUM/TAZOBACTAM 3.375 GM in NORMAL SALINE 100 ML IV SCH ×5 (00:13→23:16)
[2016-11-18] MEDS: METHYLPREDNISOLONE INJ 125 MG/2 ML SDV IV SCH ×5 (00:15→23:15)
[2016-11-18] MEDS: LEVALBUTEROL HCL NEB 1.25 MG/3 ML AMPUL NEB SCH ×4 (02:32→19:29)
[2016-11-18] MEDS: IPRATROPIUM BROMIDE 0.02% NEB 0.5 MG/2.5 ML AMPUL NEB SCH ×4 (02:32→19:29)
[2016-11-18] MEDS: LANSOPRAZOLE 30 MG TAB.RAP.DR PO SCH (05:53)
[2016-11-18] MEDS: NORMAL SALINE 1000 ML 1,000 ML IV PRN (05:58)
[2016-11-18 06:53] LABS: HEMATOCRIT 33.3 % (36.0-47.0); HEMOGLOBIN 10.6 g/dL (12.0-15.5); HGB HCT DIFFERENCE -1.5; MEAN CORPUSCULAR HEMOGLOBIN 29.7 pg (27.0-33.4); MEAN CORPUSCULAR HGB CONC 31.9 g/dL (32.0-36.0); MEAN CORPUSCULAR VOLUME 93 fl (80-97); RED BLOOD COUNT 3.57 10^6/uL (3.72-5.28); RED CELL DISTRIBUTION WIDTH 16.4 % (11.5-14.0); WHITE BLOOD COUNT 6.4 10^3/uL (4.0-10.5)
[2016-11-18] MEDS: GUAIFENESIN 600 MG TABLET.SA PO SCH ×2 (09:14→21:29)
[2016-11-18] MEDS: BUDESONIDE/FORMOTEROL 160-4.5 MCG 60 PUFF/6 GM MDI IH SCH ×2 (09:15→21:29)
[2016-11-18] MEDS: TRAMADOL HCL 50 MG TABLET PO PRN (09:17)
[2016-11-18] MEDS: ASPIRIN 81 MG TABLET, ENT COATED PO SCH (09:26)
--- NOTE | 2016-11-18 11:35 | PDOC PROGRESS REPORT ---
Subjective Progress Note for:: 11/18/16 Subjective:: Complains of a nonproductive cough today. Physical Exam Vital Signs: Temp Pulse Resp BP Pulse Ox 98.3 F 97 24 H 109/63 96 11/18/16 07:58 11/18/16 07:58 11/18/16 07:58 11/18/16 07:58 11/18/16 07:58 Intake & Output 11/17/16 11/18/16 11/19/16 06:59 06:59 06:59 Intake Total 4504 3446 Output Total 845 950 Balance 3659 2496 Weight 60.4 kg 63 kg General appearance: PRESENT: no acute distress Eye exam: PRESENT: conjunctiva pink. ABSENT: scleral icterus Ear exam: PRESENT: normal external ear exam Mouth exam: PRESENT: moist, tongue midline Neck exam: ABSENT: JVD Respiratory exam: PRESENT: prolonged expiratory phas, wheezes - Bilateral wheezes in all lung malik. Cardiovascular exam: PRESENT: RRR. ABSENT: diastolic murmur, rubs, systolic murmur GI/Abdominal exam: PRESENT: normal bowel sounds, soft. ABSENT: distended, guarding, mass, organolmegaly, rebound, tenderness Extremities exam: ABSENT: calf tenderness, clubbing, pedal edema Neurological exam: PRESENT: alert, awake, oriented to person, oriented to place , oriented to time, oriented to situation Psychiatric exam: PRESENT: appropriate affect Skin exam: PRESENT: dry, intact, warm. ABSENT: cyanosis, rash Results Laboratory Results: 11/18/16 06:10 11/16/16 04:22 11/18/16 06:10 WBC 6.4 RBC 3.57 L Hgb 10.6 L Hct 33.3 L MCV 93 MCH 29.7 MCHC 31.9 L RDW 16.4 H Plt Count 80 L 11/15/16 17:20 Catheterized Urine Urine Culture - Final NO GROWTH 2 DAYS Impressions: Chest X-Ray 11/15/16 12:01 IMPRESSION: Dense consolidation in the left upper lobe obscuring the left hilum and heart border worrisome for pneumonia. Underlying obstructive lung disease Assessment & Plan - Diagnosis (1) Acute on chronic respiratory failure Qualifiers: Respiratory failure complication: hypoxia and hypercapnia Qualified Code(s): J96.21 - Acute and chronic respiratory failure with hypoxia Is this a current diagnosis for this admission?: YesPlan: The patient has pneumonia as well as COPD and alpha-1 antitrypsin deficiency. The patient is on steroids, antibiotics and nebulizers. She is growing Haemophilus influenza from her sputum culture. She has adequate coverage with Zosyn. (2) Pneumonia Qualifiers: Pneumonia type: due to unspecified organism Laterality: left Lung location: upper lobe of lung Qualified Code(s): J18.1 - Lobar pneumonia, unspecified organism Is this a current diagnosis for this admission?: YesPlan: She is growing Haemophilus influenza from cultures of the sputum. We'll continue with Zosyn. (3) Pjhuq-3-icnzkuehsfu deficiency Is this a current diagnosis for this admission?: YesPlan: The patient continues to smoke. I have again warned her as I have done previously that it is very dangerous and life-threatening for her to smoke given this condition. (4) COPD exacerbation Is this a current diagnosis for this admission?: YesPlan: We'll continue with IV steroids and nebulizers. (5) Hypertension Qualifiers: Hypertension type: essential hypertension Qualified Code(s): I10 - Essential (primary) hypertension Is this a current diagnosis for this admission?: YesPlan: Her blood pressure has been on the low side and she is currently not on any medication for hypertension. (6) Restless legs syndrome Is this a current diagnosis for this admission?: YesPlan: Continue with Requip. (7) Tobacco abuse Is this a current diagnosis for this admission?: YesPlan: She is encouraged to quit. - Time Time Spent with patient: 25-34 minutes - Inpatient Certification Medical Necessity: Need for Nebulizer Therapy and Monitoring of Response, Need for IV Antibiotics - Plan Summary Plan Summary: We'll continue with IV steroids, IV antibiotics.
[2016-11-18] MEDS: MONTELUKAST SODIUM 10 MG TABLET PO SCH (21:29)
[2016-11-18] MEDS: ROPINIROLE HCL 1 MG TABLET PO PRN (23:11)
[2016-11-19] MEDS: LEVALBUTEROL HCL NEB 1.25 MG/3 ML AMPUL NEB SCH ×4 (01:57→20:23)
[2016-11-19] MEDS: IPRATROPIUM BROMIDE 0.02% NEB 0.5 MG/2.5 ML AMPUL NEB SCH ×4 (01:57→20:23)
[2016-11-19] MEDS: NORMAL SALINE 1000 ML 1,000 ML IV PRN ×2 (03:18→21:45)
[2016-11-19] MEDS: PIPERACILLIN SODIUM/TAZOBACTAM 3.375 GM in NORMAL SALINE 100 ML IV SCH ×4 (05:09→23:15)
[2016-11-19] MEDS: METHYLPREDNISOLONE INJ 125 MG/2 ML SDV IV SCH ×4 (05:09→23:15)
[2016-11-19] MEDS: LANSOPRAZOLE 30 MG TAB.RAP.DR PO SCH (05:09)
[2016-11-19 06:24] LABS: HEMATOCRIT 33.9 % (36.0-47.0); HEMOGLOBIN 11.1 g/dL (12.0-15.5); HGB HCT DIFFERENCE -0.6; MEAN CORPUSCULAR HEMOGLOBIN 30.2 pg (27.0-33.4); MEAN CORPUSCULAR HGB CONC 32.7 g/dL (32.0-36.0); MEAN CORPUSCULAR VOLUME 92 fl (80-97); RED BLOOD COUNT 3.67 10^6/uL (3.72-5.28); RED CELL DISTRIBUTION WIDTH 15.5 % (11.5-14.0); WHITE BLOOD COUNT 5.6 10^3/uL (4.0-10.5)
[2016-11-19 06:42] LABS: ANION GAP 6 (5-19); BLOOD UREA NITROGEN 24 mg/dL (7-20); CALCIUM 8.6 mg/dL (8.4-10.2); CARBON DIOXIDE 38 mmol/L (22-30); CHLORIDE 100 mmol/L (98-107); GLUCOSE 111 mg/dL (75-110); POTASSIUM 4.5 mmol/L (3.6-5.0); SODIUM 143.9 mmol/L (137-145)
[2016-11-19 06:44] LABS: BAND NEUTROPHILS % (MANUAL) 1 % (3-5); BASOPHILS % (MANUAL) 0 % (0-2); EOSINOPHILS % (MANUAL) 0 % (0-6); LYMPHOCYTES % (MANUAL) 2 % (13-45); TOTAL CELLS COUNTED 100
[2016-11-19 06:47] LABS: ANISOCYTOSIS SLIGHT; POIKILOCYTOSIS SLIGHT; STOMATOCYTES SLIGHT
[2016-11-19 09:44] LABS: ARTERIAL BLOOD BASE EXCESS 12.1 mmol/L; ARTERIAL BLOOD O2 SATURATION 74.4 % (94-98)
[2016-11-19] MEDS: GUAIFENESIN 600 MG TABLET.SA PO SCH ×2 (10:10→21:44)
[2016-11-19] MEDS: ASPIRIN 81 MG TABLET, ENT COATED PO SCH (10:10)
[2016-11-19] MEDS: BUDESONIDE/FORMOTEROL 160-4.5 MCG 60 PUFF/6 GM MDI IH SCH ×2 (10:10→21:48)
--- NOTE | 2016-11-19 10:16 | PDOC PROGRESS REPORT ---
Subjective Progress Note for:: 11/19/16 Subjective:: Patient was slightly confused this morning and an ABG shows her to have an elevated CO2. This was off of BiPAP. Physical Exam Vital Signs: Temp Pulse Resp BP Pulse Ox 98.1 F 111 H 27 H 128/76 H 98 11/19/16 07:52 11/19/16 07:52 11/19/16 07:52 11/19/16 07:52 11/19/16 07:52 Intake & Output 11/18/16 11/19/16 11/20/16 06:59 06:59 06:59 Intake Total 3446 1762 Output Total 950 770 Balance 2496 992 Weight 63 kg 64.4 kg General appearance: PRESENT: mild distress Eye exam: PRESENT: conjunctiva pink. ABSENT: scleral icterus Ear exam: PRESENT: normal external ear exam Mouth exam: PRESENT: moist, tongue midline Neck exam: ABSENT: JVD Respiratory exam: PRESENT: wheezes - Bilateral expiratory wheezes Cardiovascular exam: PRESENT: RRR. ABSENT: diastolic murmur, rubs, systolic murmur GI/Abdominal exam: PRESENT: normal bowel sounds, soft. ABSENT: distended, guarding, mass, organolmegaly, rebound, tenderness Extremities exam: ABSENT: calf tenderness, clubbing, pedal edema Neurological exam: PRESENT: altered Psychiatric exam: PRESENT: flat affect Skin exam: PRESENT: dry, intact, warm. ABSENT: cyanosis, rash Results Laboratory Results: 11/19/16 05:11 11/19/16 05:11 11/19/16 11/19/16 11/19/16 05:11 05:11 09:08 WBC 5.6 RBC 3.67 L Hgb 11.1 L Hct 33.9 L MCV 92 MCH 30.2 MCHC 32.7 RDW 15.5 H Plt Count 98 L Seg Neutrophils % Not Reportable Lymphocytes % Not Reportable Monocytes % Not Reportable Eosinophils % Not Reportable Basophils % Not Reportable Absolute Neutrophils Not Reportable Absolute Lymphocytes Not Reportable Absolute Monocytes Not Reportable Absolute Eosinophils Not Reportable Absolute Basophils Not Reportable Carbonic Acid 2.59 H HCO3/H2CO3 Ratio 16:1 ABG pH 7.30 L ABG pCO2 86.0 H* ABG pO2 45.6 L ABG HCO3 41.7 H ABG O2 Saturation 74.4 L ABG Base Excess 12.1 FiO2 4L Sodium 143.9 Potassium 4.5 Chloride 100 Carbon Dioxide 38 H Anion Gap 6 BUN 24 H Creatinine 0.50 L Est GFR ( Amer) > 60 Est GFR (Non-Af Amer) > 60 Glucose 111 H Calcium 8.6 Impressions: Chest X-Ray 11/15/16 12:01 IMPRESSION: Dense consolidation in the left upper lobe obscuring the left hilum and heart border worrisome for pneumonia. Underlying obstructive lung disease Assessment & Plan - Diagnosis (1) Acute on chronic respiratory failure Qualifiers: Respiratory failure complication: hypoxia and hypercapnia Qualified Code(s): J96.21 - Acute and chronic respiratory failure with hypoxia Is this a current diagnosis for this admission?: YesPlan: The patient has pneumonia as well as COPD and alpha-1 antitrypsin deficiency. The patient is on steroids, antibiotics and nebulizers. She is growing Haemophilus influenza from her sputum culture. She has adequate coverage with Zosyn. The patient was more confused this morning and ABG shows her to be retaining some carbon dioxide. We will restart the BiPAP and monitor. If she has any further worsening of her mental status she may need transfer to the ICU and intubation. (2) Pneumonia Qualifiers: Pneumonia type: due to unspecified organism Laterality: left Lung location: upper lobe of lung Qualified Code(s): J18.1 - Lobar pneumonia, unspecified organism Is this a current diagnosis for this admission?: YesPlan: She is growing Haemophilus influenza from cultures of the sputum. We'll continue with Zosyn. (3) Gslpt-[id number] deficiency Is this a current diagnosis for this admission?: YesPlan: The patient continues to smoke. . (4) COPD exacerbation Is this a current diagnosis for this admission?: YesPlan: We'll continue with IV steroids and nebulizers. Patient is to also restart back on her BiPAP this morning. (5) Hypertension Qualifiers: Hypertension type: essential hypertension Qualified Code(s): I10 - Essential (primary) hypertension Is this a current diagnosis for this admission?: YesPlan: she is currently not on any medication for hypertension. (6) Restless legs syndrome Is this a current diagnosis for this admission?: YesPlan: Continue with Requip. (7) Tobacco abuse Is this a current diagnosis for this admission?: YesPlan: She is encouraged to quit. - Time Time Spent with patient: 25-34 minutes - Inpatient Certification Medical Necessity: Need Close Monitoring Due to Risk of Patient Decompensation, Need for Nebulizer Therapy and Monitoring of Response - Plan Summary Plan Summary: We will restart BiPAP if she does not quickly improve we will transfer to the ICU for possible intubation.
[2016-11-19] MEDS: MONTELUKAST SODIUM 10 MG TABLET PO SCH (21:44)
[2016-11-20] MEDS: IPRATROPIUM BROMIDE 0.02% NEB 0.5 MG/2.5 ML AMPUL NEB SCH ×4 (02:29→19:39)
[2016-11-20] MEDS: LEVALBUTEROL HCL NEB 1.25 MG/3 ML AMPUL NEB SCH ×4 (02:29→19:39)
[2016-11-20] MEDS: PIPERACILLIN SODIUM/TAZOBACTAM 3.375 GM in NORMAL SALINE 100 ML IV SCH ×4 (05:04→23:10)
[2016-11-20] MEDS: METHYLPREDNISOLONE INJ 125 MG/2 ML SDV IV SCH ×4 (05:04→23:10)
[2016-11-20] MEDS: LANSOPRAZOLE 30 MG TAB.RAP.DR PO SCH (05:04)
[2016-11-20 05:19] LABS: HEMATOCRIT 34.5 % (36.0-47.0); HEMOGLOBIN 11.3 g/dL (12.0-15.5); HGB HCT DIFFERENCE -0.6; MEAN CORPUSCULAR HEMOGLOBIN 30.2 pg (27.0-33.4); MEAN CORPUSCULAR HGB CONC 32.7 g/dL (32.0-36.0); MEAN CORPUSCULAR VOLUME 92 fl (80-97); RED BLOOD COUNT 3.74 10^6/uL (3.72-5.28); RED CELL DISTRIBUTION WIDTH 15.3 % (11.5-14.0); WHITE BLOOD COUNT 4.3 10^3/uL (4.0-10.5)
[2016-11-20 05:33] LABS: BLOOD UREA NITROGEN 28 mg/dL (7-20); CALCIUM 8.7 mg/dL (8.4-10.2); CHLORIDE 100 mmol/L (98-107); CREATININE RESULT 0.49 mg/dL (0.52-1.25); GLUCOSE 108 mg/dL (75-110); POTASSIUM 5.3 mmol/L (3.6-5.0); SODIUM 146.6 mmol/L (137-145)
[2016-11-20 05:42] LABS: ANION GAP 5 (5-19)
[2016-11-20 05:43] LABS: CARBON DIOXIDE 42 mmol/L (22-30)
[2016-11-20 06:01] LABS: BASOPHILS % (MANUAL) 0 % (0-2); EOSINOPHILS % (MANUAL) 0 % (0-6); LYMPHOCYTES % (MANUAL) 5 % (13-45); TOTAL CELLS COUNTED 100
[2016-11-20 06:02] LABS: ANISOCYTOSIS SLIGHT
[2016-11-20] MEDS: BUDESONIDE/FORMOTEROL 160-4.5 MCG 60 PUFF/6 GM MDI IH SCH ×2 (09:37→21:32)
[2016-11-20] MEDS: ASPIRIN 81 MG TABLET, ENT COATED PO SCH (09:37)
[2016-11-20] MEDS: GUAIFENESIN 600 MG TABLET.SA PO SCH ×2 (09:37→21:32)
[2016-11-20] MEDS: TRAMADOL HCL 50 MG TABLET PO PRN ×2 (11:41→20:36)
--- NOTE | 2016-11-20 14:16 | PDOC PROGRESS REPORT ---
Subjective Progress Note for:: 11/20/16 Subjective:: Patient is less confused this morning. She was on the BiPAP overnight. She was monitored on the floor and did not require going to the ICU yesterday. Physical Exam Vital Signs: Temp Pulse Resp BP Pulse Ox 98.0 F 115 H 28 H 129/76 H 97 11/20/16 11:33 11/20/16 11:33 11/20/16 11:33 11/20/16 11:33 11/20/16 11:33 Intake & Output 11/19/16 11/20/16 11/21/16 06:59 06:59 06:59 Intake Total 1762 1860 474 Output Total 770 200 Balance 992 1660 474 Weight 64.4 kg 67.3 kg General appearance: PRESENT: no acute distress Eye exam: PRESENT: conjunctiva pink. ABSENT: scleral icterus Ear exam: PRESENT: normal external ear exam Mouth exam: PRESENT: moist, tongue midline Neck exam: ABSENT: JVD Respiratory exam: PRESENT: wheezes - Bilateral extremities.. ABSENT: rales, rhonchi Cardiovascular exam: PRESENT: RRR. ABSENT: diastolic murmur, rubs, systolic murmur GI/Abdominal exam: PRESENT: normal bowel sounds, soft. ABSENT: distended, guarding, mass, organolmegaly, rebound, tenderness Extremities exam: ABSENT: calf tenderness, clubbing, pedal edema Neurological exam: PRESENT: alert, awake, oriented to person, oriented to place , oriented to time, oriented to situation Psychiatric exam: PRESENT: appropriate affect Skin exam: PRESENT: dry, intact, warm. ABSENT: cyanosis, rash Results Laboratory Results: 11/20/16 05:02 11/20/16 05:02 11/20/16 11/20/16 05:02 05:02 WBC 4.3 RBC 3.74 Hgb 11.3 L Hct 34.5 L MCV 92 MCH 30.2 MCHC 32.7 RDW 15.3 H Plt Count 103 L Seg Neutrophils % Not Reportable Lymphocytes % Not Reportable Monocytes % Not Reportable Eosinophils % Not Reportable Basophils % Not Reportable Absolute Neutrophils Not Reportable Absolute Lymphocytes Not Reportable Absolute Monocytes Not Reportable Absolute Eosinophils Not Reportable Absolute Basophils Not Reportable Sodium 146.6 H Potassium 5.3 H Chloride 100 Carbon Dioxide 42 H* Anion Gap 5 BUN 28 H Creatinine 0.49 L Est GFR ( Amer) > 60 Est GFR (Non-Af Amer) > 60 Glucose 108 Calcium 8.7 Impressions: Chest X-Ray 11/15/16 12:01 IMPRESSION: Dense consolidation in the left upper lobe obscuring the left hilum and heart border worrisome for pneumonia. Underlying obstructive lung disease Assessment & Plan - Diagnosis (1) Acute on chronic respiratory failure Qualifiers: Respiratory failure complication: hypoxia and hypercapnia Qualified Code(s): J96.21 - Acute and chronic respiratory failure with hypoxia Is this a current diagnosis for this admission?: YesPlan: The patient has pneumonia as well as COPD and alpha-1 antitrypsin deficiency. The patient is on steroids, antibiotics and nebulizers. She is growing Haemophilus influenza from her sputum culture. She has adequate coverage with Zosyn. The patient's confusion has improved with BiPAP. We'll continue with BiPAP as needed. (2) Pneumonia Qualifiers: Pneumonia type: due to unspecified organism Laterality: left Lung location: upper lobe of lung Qualified Code(s): J18.1 - Lobar pneumonia, unspecified organism Is this a current diagnosis for this admission?: YesPlan: She is growing Haemophilus influenza from cultures of the sputum. We'll continue with Zosyn. (3) Elama-[id number]-[id number] deficiency Is this a current diagnosis for this admission?: YesPlan: The patient continues to smoke. . (4) COPD exacerbation Is this a current diagnosis for this admission?: YesPlan: We'll continue with IV steroids and nebulizers. The patient required BiPAP overnight. We'll continue the BiPAP as needed. (5) Hypertension Qualifiers: Hypertension type: essential hypertension Qualified Code(s): I10 - Essential (primary) hypertension Is this a current diagnosis for this admission?: YesPlan: she is currently not on any medication for hypertension. (6) Restless legs syndrome Is this a current diagnosis for this admission?: YesPlan: Continue with Requip. (7) Tobacco abuse Is this a current diagnosis for this admission?: YesPlan: She is encouraged to quit. - Time Time Spent with patient: 25-34 minutes - Inpatient Certification Medical Necessity: Need Close Monitoring Due to Risk of Patient Decompensation
[2016-11-20] MEDS: NORMAL SALINE 1000 ML 1,000 ML IV PRN (16:19)
[2016-11-20] MEDS: MONTELUKAST SODIUM 10 MG TABLET PO SCH (21:32)
[2016-11-21] MEDS: IPRATROPIUM BROMIDE 0.02% NEB 0.5 MG/2.5 ML AMPUL NEB SCH ×4 (02:59→20:00)
[2016-11-21] MEDS: LEVALBUTEROL HCL NEB 1.25 MG/3 ML AMPUL NEB SCH ×4 (02:59→20:00)
[2016-11-21] MEDS: METHYLPREDNISOLONE INJ 125 MG/2 ML SDV IV SCH ×3 (05:44→17:19)
[2016-11-21] MEDS: LANSOPRAZOLE 30 MG TAB.RAP.DR PO SCH (05:44)
[2016-11-21] MEDS: PIPERACILLIN SODIUM/TAZOBACTAM 3.375 GM in NORMAL SALINE 100 ML IV SCH ×3 (05:44→17:18)
[2016-11-21 05:59] LABS: HEMATOCRIT 33.8 % (36.0-47.0); HEMOGLOBIN 10.9 g/dL (12.0-15.5); HGB HCT DIFFERENCE -1.1; MEAN CORPUSCULAR HEMOGLOBIN 29.8 pg (27.0-33.4); MEAN CORPUSCULAR HGB CONC 32.2 g/dL (32.0-36.0); MEAN CORPUSCULAR VOLUME 93 fl (80-97); RED BLOOD COUNT 3.65 10^6/uL (3.72-5.28); RED CELL DISTRIBUTION WIDTH 15.4 % (11.5-14.0); WHITE BLOOD COUNT 4.8 10^3/uL (4.0-10.5)
[2016-11-21 06:14] LABS: BLOOD UREA NITROGEN 24 mg/dL (7-20); CALCIUM 8.6 mg/dL (8.4-10.2); CHLORIDE 98 mmol/L (98-107); CREATININE RESULT 0.44 mg/dL (0.52-1.25); GLUCOSE 141 mg/dL (75-110); POTASSIUM 4.8 mmol/L (3.6-5.0); SODIUM 144.3 mmol/L (137-145)
[2016-11-21 06:21] LABS: ANION GAP 7 (5-19); CARBON DIOXIDE 39 mmol/L (22-30)
[2016-11-21 06:39] LABS: BASOPHILS % (MANUAL) 0 % (0-2); EOSINOPHILS % (MANUAL) 0 % (0-6); LYMPHOCYTES % (MANUAL) 1 % (13-45); TOTAL CELLS COUNTED 100
[2016-11-21 06:40] LABS: ANISOCYTOSIS SLIGHT; OVALOCYTES SLIGHT
[2016-11-21] MEDS: TRAMADOL HCL 50 MG TABLET PO PRN ×2 (07:59→17:18)
[2016-11-21] MEDS: ASPIRIN 81 MG TABLET, ENT COATED PO SCH (09:46)
[2016-11-21] MEDS: GUAIFENESIN 600 MG TABLET.SA PO SCH ×2 (09:46→21:31)
[2016-11-21] MEDS: BUDESONIDE/FORMOTEROL 160-4.5 MCG 60 PUFF/6 GM MDI IH SCH ×2 (09:47→21:31)
--- NOTE | 2016-11-21 13:00 | PDOC PROGRESS REPORT ---
Subjective Progress Note for:: 11/21/16 Subjective:: She reports that her shortness of breath is continuing to improve. Physical Exam Vital Signs: Temp Pulse Resp BP Pulse Ox 98.2 F 97 21 H 110/69 100 11/21/16 07:18 11/21/16 08:34 11/21/16 08:34 11/21/16 07:18 11/21/16 07:18 Intake & Output 11/20/16 11/21/16 11/22/16 06:59 06:59 06:59 Intake Total 1860 1409 Output Total 200 Balance 1660 1409 Weight 67.3 kg 70.1 kg General appearance: PRESENT: no acute distress Eye exam: PRESENT: conjunctiva pink. ABSENT: scleral icterus Mouth exam: PRESENT: moist, tongue midline Neck exam: ABSENT: JVD Respiratory exam: PRESENT: wheezes - Scattered expiratory wheezes. Cardiovascular exam: PRESENT: RRR. ABSENT: diastolic murmur, rubs, systolic murmur GI/Abdominal exam: PRESENT: normal bowel sounds, soft. ABSENT: distended, guarding, mass, organolmegaly, rebound, tenderness Extremities exam: ABSENT: calf tenderness, clubbing, pedal edema Neurological exam: PRESENT: alert, awake, oriented to person, oriented to place , oriented to time, oriented to situation Psychiatric exam: PRESENT: appropriate affect Skin exam: PRESENT: dry, intact, warm. ABSENT: cyanosis, rash Results Laboratory Results: 11/21/16 05:35 11/21/16 05:35 11/21/16 11/21/16 05:35 05:35 WBC 4.8 RBC 3.65 L Hgb 10.9 L Hct 33.8 L MCV 93 MCH 29.8 MCHC 32.2 RDW 15.4 H Plt Count 108 L Seg Neutrophils % Not Reportable Lymphocytes % Not Reportable Monocytes % Not Reportable Eosinophils % Not Reportable Basophils % Not Reportable Absolute Neutrophils Not Reportable Absolute Lymphocytes Not Reportable Absolute Monocytes Not Reportable Absolute Eosinophils Not Reportable Absolute Basophils Not Reportable Sodium 144.3 Potassium 4.8 Chloride 98 Carbon Dioxide 39 H Anion Gap 7 BUN 24 H Creatinine 0.44 L Est GFR ( Amer) > 60 Est GFR (Non-Af Amer) > 60 Glucose 141 H Calcium 8.6 Impressions: Chest X-Ray 11/15/16 12:01 IMPRESSION: Dense consolidation in the left upper lobe obscuring the left hilum and heart border worrisome for pneumonia. Underlying obstructive lung disease Assessment & Plan - Diagnosis (1) Acute on chronic respiratory failure Qualifiers: Respiratory failure complication: hypoxia and hypercapnia Qualified Code(s): J96.21 - Acute and chronic respiratory failure with hypoxia Is this a current diagnosis for this admission?: YesPlan: The patient has pneumonia as well as COPD and alpha-1 antitrypsin deficiency. The patient is on steroids, antibiotics and nebulizers. She is growing Haemophilus influenza from her sputum culture. She has adequate coverage with Zosyn. The patient's confusion has improved with BiPAP. We'll continue with BiPAP as needed. (2) Pneumonia Qualifiers: Pneumonia type: due to unspecified organism Laterality: left Lung location: upper lobe of lung Qualified Code(s): J18.1 - Lobar pneumonia, unspecified organism Is this a current diagnosis for this admission?: YesPlan: She is growing Haemophilus influenza from cultures of the sputum. We'll continue with Zosyn. (3) Jakrt-0-jvpohjqhvct deficiency Is this a current diagnosis for this admission?: YesPlan: The patient continues to smoke. (4) COPD exacerbation Is this a current diagnosis for this admission?: YesPlan: We'll continue with IV steroids and nebulizers. We'll continue the BiPAP as needed. (5) Hypertension Qualifiers: Hypertension type: essential hypertension Qualified Code(s): I10 - Essential (primary) hypertension Is this a current diagnosis for this admission?: YesPlan: she is currently not on any medication for hypertension. (6) Restless legs syndrome Is this a current diagnosis for this admission?: YesPlan: Continue with Requip. (7) Tobacco abuse Is this a current diagnosis for this admission?: YesPlan: She is encouraged to quit. - Time Time Spent with patient: 25-34 minutes - Inpatient Certification Medical Necessity: Need Close Monitoring Due to Risk of Patient Decompensation, Need for Nebulizer Therapy and Monitoring of Response - Plan Summary Plan Summary: If she continues to improve we will change from IV to oral steroids tomorrow.
[2016-11-21] MEDS: MONTELUKAST SODIUM 10 MG TABLET PO SCH (21:31)
[2016-11-21] MEDS: ROPINIROLE HCL 1 MG TABLET PO PRN (21:31)
[2016-11-22] MEDS: PIPERACILLIN SODIUM/TAZOBACTAM 3.375 GM in NORMAL SALINE 100 ML IV SCH ×3 (00:56→11:15)
[2016-11-22] MEDS: METHYLPREDNISOLONE INJ 125 MG/2 ML SDV IV SCH ×3 (00:56→11:16)
[2016-11-22] MEDS: NORMAL SALINE 1000 ML 1,000 ML IV PRN (01:12)
[2016-11-22] MEDS: IPRATROPIUM BROMIDE 0.02% NEB 0.5 MG/2.5 ML AMPUL NEB SCH ×4 (01:47→20:19)
[2016-11-22] MEDS: LEVALBUTEROL HCL NEB 1.25 MG/3 ML AMPUL NEB SCH ×4 (01:48→20:19)
[2016-11-22 06:17] LABS: HEMATOCRIT 40.6 % (36.0-47.0); HEMOGLOBIN 12.9 g/dL (12.0-15.5); HGB HCT DIFFERENCE -1.9; MEAN CORPUSCULAR HGB CONC 31.8 g/dL (32.0-36.0); MEAN CORPUSCULAR VOLUME 91 fl (80-97); RED BLOOD COUNT 4.45 10^6/uL (3.72-5.28); RED CELL DISTRIBUTION WIDTH 15.3 % (11.5-14.0)
[2016-11-22] MEDS: LANSOPRAZOLE 30 MG TAB.RAP.DR PO SCH (06:19)
[2016-11-22 06:21] LABS: BASOPHILS % (MANUAL) 0 % (0-2); EOSINOPHILS % (MANUAL) 0 % (0-6); LYMPHOCYTES % (MANUAL) 1 % (13-45); NUCLEATED RED BLOOD CELLS 1 /100 WBC (0); TOTAL CELLS COUNTED 100
[2016-11-22 06:23] LABS: ANISOCYTOSIS SLIGHT; BLOOD UREA NITROGEN 17 mg/dL (7-20); CALCIUM 8.5 mg/dL (8.4-10.2); CHLORIDE 95 mmol/L (98-107); CREATININE RESULT 0.39 mg/dL (0.52-1.25); GLUCOSE 119 mg/dL (75-110); POTASSIUM 4.1 mmol/L (3.6-5.0); SODIUM 139.9 mmol/L (137-145)
[2016-11-22 06:41] LABS: ANION GAP 8 (5-19)
[2016-11-22 06:43] LABS: CARBON DIOXIDE 37 mmol/L (22-30)
[2016-11-22] MEDS: GUAIFENESIN 600 MG TABLET.SA PO SCH ×2 (11:12→21:27)
[2016-11-22] MEDS: ASPIRIN 81 MG TABLET, ENT COATED PO SCH (11:13)
[2016-11-22] MEDS: TRAMADOL HCL 50 MG TABLET PO PRN (11:13)
[2016-11-22] MEDS: BUDESONIDE/FORMOTEROL 160-4.5 MCG 60 PUFF/6 GM MDI IH SCH ×2 (11:14→21:27)
--- NOTE | 2016-11-22 12:50 | PDOC PROGRESS REPORT ---
Subjective Progress Note for:: 11/22/16 Subjective:: Denies any complaints. Physical Exam Vital Signs: Temp Pulse Resp BP Pulse Ox 98.5 F 75 20 124/80 98 11/22/16 07:31 11/22/16 09:29 11/22/16 09:29 11/22/16 07:31 11/22/16 09:29 Intake & Output 11/21/16 11/22/16 11/23/16 06:59 06:59 06:59 Intake Total 1409 1400 Output Total 300 Balance 1409 1100 Weight 70.1 kg 72.9 kg General appearance: PRESENT: no acute distress Eye exam: PRESENT: conjunctiva pink. ABSENT: scleral icterus Mouth exam: PRESENT: moist, tongue midline Neck exam: ABSENT: full ROM Respiratory exam: PRESENT: wheezes - Minimal wheezes. Cardiovascular exam: PRESENT: RRR. ABSENT: diastolic murmur, rubs, systolic murmur GI/Abdominal exam: PRESENT: normal bowel sounds, soft. ABSENT: distended, guarding, mass, organolmegaly, rebound, tenderness Extremities exam: ABSENT: calf tenderness, clubbing, pedal edema Neurological exam: PRESENT: alert, awake, oriented to person, oriented to place , oriented to time, oriented to situation Psychiatric exam: PRESENT: appropriate affect Skin exam: PRESENT: dry, intact, warm. ABSENT: cyanosis, rash Results Laboratory Results: 11/22/16 05:09 11/22/16 05:09 11/22/16 11/22/16 05:09 05:09 WBC 8.0 RBC 4.45 Hgb 12.9 Hct 40.6 MCV 91 MCH 29.0 MCHC 31.8 L RDW 15.3 H Plt Count 111 L Seg Neutrophils % Not Reportable Lymphocytes % Not Reportable Monocytes % Not Reportable Eosinophils % Not Reportable Basophils % Not Reportable Absolute Neutrophils Not Reportable Absolute Lymphocytes Not Reportable Absolute Monocytes Not Reportable Absolute Eosinophils Not Reportable Absolute Basophils Not Reportable Sodium 139.9 Potassium 4.1 Chloride 95 L Carbon Dioxide 37 H Anion Gap 8 BUN 17 Creatinine 0.39 L Est GFR ( Amer) > 60 Est GFR (Non-Af Amer) > 60 Glucose 119 H Calcium 8.5 Impressions: Chest X-Ray 11/15/16 12:01 IMPRESSION: Dense consolidation in the left upper lobe obscuring the left hilum and heart border worrisome for pneumonia. Underlying obstructive lung disease Assessment & Plan - Diagnosis (1) Acute on chronic respiratory failure Qualifiers: Respiratory failure complication: hypoxia and hypercapnia Qualified Code(s): J96.21 - Acute and chronic respiratory failure with hypoxia Is this a current diagnosis for this admission?: YesPlan: The patient has pneumonia as well as COPD and alpha-1 antitrypsin deficiency. The patient is on steroids, antibiotics and nebulizers. Will decrease the dose of steroids. She is growing Haemophilus influenza from her sputum culture. She has adequate coverage with Zosyn. The patient's confusion has improved with BiPAP. We'll continue with BiPAP as needed. (2) Pneumonia Qualifiers: Pneumonia type: due to unspecified organism Laterality: left Lung location: upper lobe of lung Qualified Code(s): J18.1 - Lobar pneumonia, unspecified organism Is this a current diagnosis for this admission?: YesPlan: She is growing Haemophilus influenza from cultures of the sputum. We'll continue with Zosyn. Today is day #7 (3) Mejzz-7-baeoayhrpey deficiency Is this a current diagnosis for this admission?: YesPlan: The patient is encouraged not to restart smoking when she is discharged. (4) COPD exacerbation Is this a current diagnosis for this admission?: YesPlan: We'll continue with IV steroids but at a lower dose, And nebulizers. We'll continue the BiPAP as needed. (5) Hypertension Qualifiers: Hypertension type: essential hypertension Qualified Code(s): I10 - Essential (primary) hypertension Is this a current diagnosis for this admission?: YesPlan: she is currently not on any medication for hypertension. (6) Restless legs syndrome Is this a current diagnosis for this admission?: YesPlan: Continue with Requip. (7) Tobacco abuse Is this a current diagnosis for this admission?: YesPlan: She is encouraged to quit. - Time Time Spent with patient: 25-34 minutes - Inpatient Certification Medical Necessity: Need Close Monitoring Due to Risk of Patient Decompensation, Need for Nebulizer Therapy and Monitoring of Response
[2016-11-22] MEDS ORDERED: METHYLPREDNISOLONE INJ 125 MG/2 ML SDV IV SCH (14:00)
[2016-11-22] MEDS: METHYLPREDNISOLONE INJ 40 MG/1 ML SDV IV SCH (21:27)
[2016-11-22] MEDS: MONTELUKAST SODIUM 10 MG TABLET PO SCH (21:27)
[2016-11-22] MEDS: ROPINIROLE HCL 1 MG TABLET PO PRN (21:29)
[2016-11-23] MEDS: LEVALBUTEROL HCL NEB 1.25 MG/3 ML AMPUL NEB SCH ×4 (02:01→20:38)
[2016-11-23] MEDS: IPRATROPIUM BROMIDE 0.02% NEB 0.5 MG/2.5 ML AMPUL NEB SCH ×4 (02:01→20:38)
[2016-11-23] MEDS: ACETAMINOPHEN 325 MG TABLET PO PRN (02:49)
[2016-11-23] MEDS: LANSOPRAZOLE 30 MG TAB.RAP.DR PO SCH (06:04)
[2016-11-23] MEDS: METHYLPREDNISOLONE INJ 40 MG/1 ML SDV IV SCH (06:04)
[2016-11-23] MEDS: GUAIFENESIN 600 MG TABLET.SA PO SCH ×2 (10:23→21:47)
[2016-11-23] MEDS: BUDESONIDE/FORMOTEROL 160-4.5 MCG 60 PUFF/6 GM MDI IH SCH ×2 (10:23→21:47)
[2016-11-23] MEDS: ASPIRIN 81 MG TABLET, ENT COATED PO SCH (10:23)
--- NOTE | 2016-11-23 12:18 | PDOC PROGRESS REPORT ---
Subjective Progress Note for:: 11/23/16 Subjective:: Denies any complaints. Physical Exam Vital Signs: Temp Pulse Resp BP Pulse Ox 98.5 F 100 16 118/67 97 11/23/16 07:41 11/23/16 08:17 11/23/16 08:17 11/23/16 07:41 11/23/16 08:17 Intake & Output 11/22/16 11/23/16 11/24/16 06:59 06:59 06:59 Intake Total 1400 818 Output Total 300 800 Balance 1100 18 Weight 72.9 kg 72.6 kg General appearance: PRESENT: no acute distress Eye exam: PRESENT: conjunctiva pink. ABSENT: scleral icterus Mouth exam: PRESENT: moist, tongue midline Neck exam: ABSENT: JVD Respiratory exam: PRESENT: clear to auscultation lashell. ABSENT: rales, rhonchi, wheezes Cardiovascular exam: PRESENT: RRR. ABSENT: diastolic murmur, rubs, systolic murmur GI/Abdominal exam: PRESENT: normal bowel sounds, soft. ABSENT: distended, guarding, mass, organolmegaly, rebound, tenderness Extremities exam: ABSENT: calf tenderness, clubbing, pedal edema Neurological exam: PRESENT: alert, awake, oriented to person, oriented to place , oriented to time, oriented to situation Psychiatric exam: PRESENT: appropriate affect Skin exam: PRESENT: dry, intact, warm. ABSENT: cyanosis, rash Results Laboratory Results: 11/22/16 05:09 11/22/16 05:09 Impressions: Chest X-Ray 11/15/16 12:01 IMPRESSION: Dense consolidation in the left upper lobe obscuring the left hilum and heart border worrisome for pneumonia. Underlying obstructive lung disease Assessment & Plan - Diagnosis (1) Acute on chronic respiratory failure Qualifiers: Respiratory failure complication: hypoxia and hypercapnia Qualified Code(s): J96.21 - Acute and chronic respiratory failure with hypoxia Is this a current diagnosis for this admission?: YesPlan: The patient has pneumonia as well as COPD and alpha-1 antitrypsin deficiency. The patient is on steroids, antibiotics and nebulizers. Will decrease the dose of steroids. She is growing Haemophilus influenza from her sputum culture. She has completed a course of Zosyn and will DC that today. We'll continue with BiPAP as needed. (2) Pneumonia Qualifiers: Pneumonia type: due to unspecified organism Laterality: left Lung location: upper lobe of lung Qualified Code(s): J18.1 - Lobar pneumonia, unspecified organism Is this a current diagnosis for this admission?: YesPlan: She is growing Haemophilus influenza from cultures of the sputum. We will DC the Zosyn as she has completed a full course. (3) Rhnrb-6-knsmufppyfr deficiency Is this a current diagnosis for this admission?: YesPlan: The patient is encouraged not to restart smoking when she is discharged. (4) COPD exacerbation Is this a current diagnosis for this admission?: YesPlan: We'll continue with steroids And nebulizers. We'll continue the BiPAP as needed. (5) Hypertension Qualifiers: Hypertension type: essential hypertension Qualified Code(s): I10 - Essential (primary) hypertension Is this a current diagnosis for this admission?: YesPlan: she is currently not on any medication for hypertension. (6) Restless legs syndrome Is this a current diagnosis for this admission?: YesPlan: Continue with Requip. (7) Tobacco abuse Is this a current diagnosis for this admission?: YesPlan: She is encouraged to quit. - Time Time Spent with patient: 25-34 minutes - Inpatient Certification Medical Necessity: Need Close Monitoring Due to Risk of Patient Decompensation
[2016-11-23] MEDS ORDERED: NYSTATIN/DEXAMETH/DIPHEN SUSP 120 ML PO ONE (16:30)
[2016-11-23] MEDS: ROPINIROLE HCL 1 MG TABLET PO PRN (21:47)
[2016-11-23] MEDS: MONTELUKAST SODIUM 10 MG TABLET PO SCH (21:47)
[2016-11-23] MEDS: NYSTATIN/DEXAMETH/DIPHEN SUSP 120 ML PO SCH (21:48)
[2016-11-24] MEDS: LEVALBUTEROL HCL NEB 1.25 MG/3 ML AMPUL NEB SCH ×4 (02:15→20:27)
[2016-11-24] MEDS: IPRATROPIUM BROMIDE 0.02% NEB 0.5 MG/2.5 ML AMPUL NEB SCH ×4 (02:15→20:27)
[2016-11-24] MEDS: LANSOPRAZOLE 30 MG TAB.RAP.DR PO SCH (05:42)
[2016-11-24] MEDS: ACETAMINOPHEN 325 MG TABLET PO PRN ×2 (05:42→16:33)
[2016-11-24 06:02] LABS: ABSOLUTE LYMPHOCYTES (AUTO) 1.1 10^3/uL (0.5-4.7); ABSOLUTE MONOCYTES (AUTO) 0.4 10^3/uL (0.1-1.4); ABSOLUTE NEUT (AUTO) 5.7 10^3/uL (1.7-8.2); BASOPHILS % (AUTO) 0.2 % (0-2); EOSINOPHILS % (AUTO) 0.5 % (0-6); HEMOGLOBIN 12.4 g/dL (12.0-15.5); HGB HCT DIFFERENCE -1.8; LYMPHOCYTES % (AUTO) 14.9 % (13-45); MEAN CORPUSCULAR HEMOGLOBIN 29.1 pg (27.0-33.4); MEAN CORPUSCULAR HGB CONC 31.8 g/dL (32.0-36.0); MEAN CORPUSCULAR VOLUME 92 fl (80-97); MONOCYTES % (AUTO) 5.2 % (3-13); RED BLOOD COUNT 4.26 10^6/uL (3.72-5.28); RED CELL DISTRIBUTION WIDTH 15.6 % (11.5-14.0); SEGMENTED NEUTROPHILS % (AUTO) 79.2 % (42-78); WHITE BLOOD COUNT 7.1 10^3/uL (4.0-10.5)
[2016-11-24 06:27] LABS: BLOOD UREA NITROGEN 11 mg/dL (7-20); CALCIUM 8.3 mg/dL (8.4-10.2); CHLORIDE 92 mmol/L (98-107); CREATININE RESULT 0.43 mg/dL (0.52-1.25); GLUCOSE 80 mg/dL (75-110); POTASSIUM 3.7 mmol/L (3.6-5.0); SODIUM 141.8 mmol/L (137-145)
[2016-11-24 06:38] LABS: ANION GAP 6 (5-19)
[2016-11-24 06:40] LABS: CARBON DIOXIDE 44 mmol/L (22-30)
[2016-11-24] MEDS: BUDESONIDE/FORMOTEROL 160-4.5 MCG 60 PUFF/6 GM MDI IH SCH ×2 (10:11→22:59)
[2016-11-24] MEDS: GUAIFENESIN 600 MG TABLET.SA PO SCH ×2 (10:12→22:57)
[2016-11-24] MEDS: ASPIRIN 81 MG TABLET, ENT COATED PO SCH (10:12)
[2016-11-24] MEDS: PREDNISONE 20 MG TABLET PO SCH (10:13)
[2016-11-24] MEDS: FUROSEMIDE INJ/PF 20 MG/2 ML SDV IV SCH ×2 (10:14→22:58)
[2016-11-24] MEDS: NYSTATIN/DEXAMETH/DIPHEN SUSP 120 ML PO SCH ×4 (10:15→22:58)
--- NOTE | 2016-11-24 14:47 | PDOC PROGRESS REPORT ---
Subjective Progress Note for:: 11/24/16 Subjective:: Denies any complaints. Physical Exam Vital Signs: Temp Pulse Resp BP Pulse Ox 97.6 F 92 18 123/74 98 11/24/16 11:49 11/24/16 13:51 11/24/16 13:51 11/24/16 11:49 11/24/16 11:49 Intake & Output 11/23/16 11/24/16 11/25/16 06:59 06:59 06:59 Intake Total 818 1078 480 Output Total 800 1095 1000 Balance 18 -0760 -089 Weight 72.6 kg 73.1 kg General appearance: PRESENT: no acute distress Eye exam: PRESENT: conjunctiva pink. ABSENT: scleral icterus Ear exam: PRESENT: normal external ear exam Mouth exam: PRESENT: moist, tongue midline Neck exam: ABSENT: JVD Respiratory exam: PRESENT: clear to auscultation lashell. ABSENT: rales, rhonchi, wheezes Cardiovascular exam: PRESENT: RRR. ABSENT: diastolic murmur, rubs, systolic murmur GI/Abdominal exam: PRESENT: normal bowel sounds, soft. ABSENT: distended, guarding, mass, organolmegaly, rebound, tenderness Extremities exam: PRESENT: pedal edema, +1 edema. ABSENT: calf tenderness, clubbing Neurological exam: PRESENT: alert, awake, oriented to person, oriented to place , oriented to time, oriented to situation, CN II-XII grossly intact. ABSENT: motor sensory deficit Psychiatric exam: PRESENT: appropriate affect Skin exam: PRESENT: dry, intact, warm. ABSENT: cyanosis, rash Results Laboratory Results: 11/24/16 05:36 11/24/16 05:36 11/24/16 11/24/16 05:36 05:36 WBC 7.1 RBC 4.26 Hgb 12.4 Hct 39.0 MCV 92 MCH 29.1 MCHC 31.8 L RDW 15.6 H Plt Count 145 L Seg Neutrophils % 79.2 H Lymphocytes % 14.9 Monocytes % 5.2 Eosinophils % 0.5 Basophils % 0.2 Absolute Neutrophils 5.7 Absolute Lymphocytes 1.1 Absolute Monocytes 0.4 Absolute Eosinophils 0.0 Absolute Basophils 0.0 Sodium 141.8 Potassium 3.7 Chloride 92 L Carbon Dioxide 44 H* Anion Gap 6 BUN 11 Creatinine 0.43 L Est GFR ( Amer) > 60 Est GFR (Non-Af Amer) > 60 Glucose 80 Calcium 8.3 L Impressions: Chest X-Ray 11/15/16 12:01 IMPRESSION: Dense consolidation in the left upper lobe obscuring the left hilum and heart border worrisome for pneumonia. Underlying obstructive lung disease Assessment & Plan - Diagnosis (1) Acute on chronic respiratory failure Qualifiers: Respiratory failure complication: hypoxia and hypercapnia Qualified Code(s): J96.21 - Acute and chronic respiratory failure with hypoxia Is this a current diagnosis for this admission?: YesPlan: The patient has pneumonia as well as COPD and alpha-1 antitrypsin deficiency. The patient is on steroids, antibiotics and nebulizers. Will decrease the dose of steroids. She is growing Haemophilus influenza from her sputum culture. She has completed a course of Zosyn and it has been stopped. We'll continue with BiPAP as needed. If The patient continues to do well she can probably be discharged home tomorrow (2) Pneumonia Qualifiers: Pneumonia type: due to unspecified organism Laterality: left Lung location: upper lobe of lung Qualified Code(s): J18.1 - Lobar pneumonia, unspecified organism Is this a current diagnosis for this admission?: YesPlan: She is growing Haemophilus influenza from cultures of the sputum. She has completed a full course of Zosyn. (3) Hczql-9-wjbpedvkgqj deficiency Is this a current diagnosis for this admission?: YesPlan: The patient is encouraged not to restart smoking when she is discharged. (4) COPD exacerbation Is this a current diagnosis for this admission?: YesPlan: We'll continue with steroids And nebulizers. We'll continue the BiPAP as needed. (5) Hypertension Qualifiers: Hypertension type: essential hypertension Qualified Code(s): I10 - Essential (primary) hypertension Is this a current diagnosis for this admission?: YesPlan: she is currently not on any medication for hypertension. (6) Restless legs syndrome Is this a current diagnosis for this admission?: YesPlan: Continue with Requip. (7) Tobacco abuse Is this a current diagnosis for this admission?: YesPlan: She is encouraged to quit. - Time Time Spent with patient: 15-24 minutes - Plan Summary Plan Summary: If she continues to improve from a respiratory standpoint she can probably be discharged home tomorrow. Patient was started on Lasix because of some lower extremity edema although she has no evidence for heart failure.
[2016-11-24] MEDS: MONTELUKAST SODIUM 10 MG TABLET PO SCH (22:57)
[2016-11-24] MEDS: ROPINIROLE HCL 1 MG TABLET PO PRN (22:58)
[2016-11-25] MEDS: IPRATROPIUM BROMIDE 0.02% NEB 0.5 MG/2.5 ML AMPUL NEB SCH ×4 (01:24→20:08)
[2016-11-25] MEDS: LEVALBUTEROL HCL NEB 1.25 MG/3 ML AMPUL NEB SCH ×4 (01:24→20:08)
[2016-11-25 06:19] LABS: ABSOLUTE EOSINOPHILS # (AUTO) 0.1 10^3/uL (0.0-0.6); ABSOLUTE LYMPHOCYTES (AUTO) 0.9 10^3/uL (0.5-4.7); ABSOLUTE MONOCYTES (AUTO) 0.3 10^3/uL (0.1-1.4); ABSOLUTE NEUT (AUTO) 5.8 10^3/uL (1.7-8.2); EOSINOPHILS % (AUTO) 0.8 % (0-6); HEMATOCRIT 32.2 % (36.0-47.0); HEMOGLOBIN 10.6 g/dL (12.0-15.5); HGB HCT DIFFERENCE -0.4; LYMPHOCYTES % (AUTO) 13.2 % (13-45); MEAN CORPUSCULAR HEMOGLOBIN 29.9 pg (27.0-33.4); MEAN CORPUSCULAR VOLUME 91 fl (80-97); MONOCYTES % (AUTO) 4.4 % (3-13); RED BLOOD COUNT 3.55 10^6/uL (3.72-5.28); RED CELL DISTRIBUTION WIDTH 15.7 % (11.5-14.0); SEGMENTED NEUTROPHILS % (AUTO) 81.6 % (42-78)
[2016-11-25] MEDS: LANSOPRAZOLE 30 MG TAB.RAP.DR PO SCH (06:23)
[2016-11-25 06:33] LABS: BLOOD UREA NITROGEN 8 mg/dL (7-20); CALCIUM 7.8 mg/dL (8.4-10.2); CHLORIDE 86 mmol/L (98-107); CREATININE RESULT 0.42 mg/dL (0.52-1.25); GLUCOSE 79 mg/dL (75-110); POTASSIUM 3.5 mmol/L (3.6-5.0)
[2016-11-25 06:53] LABS: SODIUM 139.8 mmol/L (137-145)
[2016-11-25 06:57] LABS: ANION GAP 6 (5-19)
[2016-11-25 06:58] LABS: CARBON DIOXIDE 48 mmol/L (22-30)
[2016-11-25] MEDS: ACETAMINOPHEN 325 MG TABLET PO PRN ×2 (09:07→14:20)
[2016-11-25] MEDS: BUDESONIDE/FORMOTEROL 160-4.5 MCG 60 PUFF/6 GM MDI IH SCH ×2 (09:07→22:17)
[2016-11-25] MEDS: ASPIRIN 81 MG TABLET, ENT COATED PO SCH (09:08)
[2016-11-25] MEDS: PREDNISONE 20 MG TABLET PO SCH (09:09)
[2016-11-25] MEDS: GUAIFENESIN 600 MG TABLET.SA PO SCH ×2 (09:09→22:18)
[2016-11-25] MEDS: NYSTATIN/DEXAMETH/DIPHEN SUSP 120 ML PO SCH ×4 (09:10→22:18)
[2016-11-25] MEDS: FUROSEMIDE INJ/PF 20 MG/2 ML SDV IV SCH (09:11)
--- NOTE | 2016-11-25 13:54 | PDOC PROGRESS REPORT ---
Subjective Progress Note for:: 11/25/16 Subjective:: Patient felt better. Shortness of breath is better. Wheezing intermittent. Denies any temperature spikes, nausea or vomiting, diarrhea. She wears CPAP at home, able to ambulate around better. Physical Exam Vital Signs: Temp Pulse Resp BP Pulse Ox 98.5 F 101 H 24 H 121/76 100 11/25/16 11:39 11/25/16 11:39 11/25/16 11:39 11/25/16 11:39 11/25/16 11:39 Intake & Output 11/24/16 11/25/16 11/26/16 06:59 06:59 06:59 Intake Total 1078 1631 888 Output Total 2477 4000 1999 Balance -8663 -3046 -8059 Weight 73.1 kg 73 kg General appearance: PRESENT: no acute distress, cooperative, other - Nasal cannula oxygen Head exam: PRESENT: normocephalic Eye exam: PRESENT: EOMI Mouth exam: PRESENT: moist, neck supple Neck exam: ABSENT: JVD Respiratory exam: PRESENT: wheezes - minimal Cardiovascular exam: PRESENT: RRR GI/Abdominal exam: PRESENT: soft. ABSENT: distended, tenderness Extremities exam: PRESENT: +1 edema Neurological exam: PRESENT: alert, awake, oriented to situation Skin exam: PRESENT: dry, warm. ABSENT: cyanosis Results Laboratory Results: 11/25/16 05:41 11/25/16 05:41 11/25/16 11/25/16 05:41 05:41 WBC 7.0 RBC 3.55 L Hgb 10.6 L Hct 32.2 L MCV 91 MCH 29.9 MCHC 33.0 RDW 15.7 H Plt Count 143 L Seg Neutrophils % 81.6 H Lymphocytes % 13.2 Monocytes % 4.4 Eosinophils % 0.8 Basophils % 0.0 Absolute Neutrophils 5.8 Absolute Lymphocytes 0.9 Absolute Monocytes 0.3 Absolute Eosinophils 0.1 Absolute Basophils 0.0 Sodium 139.8 Potassium 3.5 L Chloride 86 L Carbon Dioxide 48 H* Anion Gap 6 BUN 8 Creatinine 0.42 L Est GFR ( Amer) > 60 Est GFR (Non-Af Amer) > 60 Glucose 79 Calcium 7.8 L Impressions: Chest X-Ray 11/15/16 12:01 IMPRESSION: Dense consolidation in the left upper lobe obscuring the left hilum and heart border worrisome for pneumonia. Underlying obstructive lung disease Assessment & Plan - Diagnosis (1) Acute on chronic respiratory failure Qualifiers: Respiratory failure complication: hypoxia and hypercapnia Qualified Code(s): J96.21 - Acute and chronic respiratory failure with hypoxia Is this a current diagnosis for this admission?: Yes (2) COPD exacerbation Is this a current diagnosis for this admission?: Yes (3) Pneumonia Qualifiers: Pneumonia type: due to unspecified organism Laterality: left Lung location: upper lobe of lung Qualified Code(s): J18.1 - Lobar pneumonia, unspecified organism Is this a current diagnosis for this admission?: Yes (4) Sepsis Qualifiers: Sepsis type: sepsis due to unspecified organism Qualified Code(s): A41.9 - Sepsis, unspecified organism Is this a current diagnosis for this admission?: Yes (5) Hypertension Qualifiers: Hypertension type: essential hypertension Qualified Code(s): I10 - Essential (primary) hypertension Is this a current diagnosis for this admission?: Yes (6) Nfrah-2-ugktjmlvjsv deficiency Is this a current diagnosis for this admission?: Yes (7) Tobacco abuse Is this a current diagnosis for this admission?: Yes (8) Restless legs syndrome Is this a current diagnosis for this admission?: Yes - Time Time Spent with patient: 15-24 minutes - Plan Summary Plan Summary: I am going to discontinue the Lasix as the patient is more getting alkalotic. Continue other medications and if the patient feels better by the morning probably discharge home with home health.
[2016-11-25] MEDS ORDERED: OXYCODONE-ACETAMINOPHEN 5-325 MG TABLET PO PRN (15:52)
[2016-11-25] MEDS: MONTELUKAST SODIUM 10 MG TABLET PO SCH (22:17)
[2016-11-25] MEDS: ROPINIROLE HCL 1 MG TABLET PO PRN (22:17)
[2016-11-26] MEDS: LEVALBUTEROL HCL NEB 1.25 MG/3 ML AMPUL NEB SCH ×3 (02:09→13:59)
[2016-11-26] MEDS: IPRATROPIUM BROMIDE 0.02% NEB 0.5 MG/2.5 ML AMPUL NEB SCH ×3 (02:09→13:59)
[2016-11-26] MEDS: LANSOPRAZOLE 30 MG TAB.RAP.DR PO SCH (06:10)
[2016-11-26] MEDS: PREDNISONE 20 MG TABLET PO SCH (09:24)
[2016-11-26] MEDS: GUAIFENESIN 600 MG TABLET.SA PO SCH (09:24)
[2016-11-26] MEDS: BUDESONIDE/FORMOTEROL 160-4.5 MCG 60 PUFF/6 GM MDI IH SCH (09:25)
[2016-11-26] MEDS: ASPIRIN 81 MG TABLET, ENT COATED PO SCH (09:25)
[2016-11-26] MEDS: NYSTATIN/DEXAMETH/DIPHEN SUSP 120 ML PO SCH ×2 (09:26→13:04)
--- NOTE | 2016-11-26 15:12 | PDOC DISCHARGE SUMMARY ---
General - Admit/Disc Date/PCP Admission Date/Primary Care Provider: 11/15/16 14:23 LUH MARTINS MD Discharge Date: 11/26/16 - Discharge Diagnosis (1) Acute on chronic respiratory failure Is this a current diagnosis for this admission?: Yes (2) COPD exacerbation Is this a current diagnosis for this admission?: Yes (3) Pneumonia Is this a current diagnosis for this admission?: Yes (4) Sepsis Is this a current diagnosis for this admission?: Yes (5) Hypertension Is this a current diagnosis for this admission?: Yes (6) Bbfxi-4-xkyfdhdixqt deficiency Is this a current diagnosis for this admission?: Yes (7) Tobacco abuse Is this a current diagnosis for this admission?: Yes (8) Restless legs syndrome Is this a current diagnosis for this admission?: Yes - Additional Information Resuscitation Status: Full Code Discharge Diet: Cardiac - low-fat low-salt Discharge Activity: Activity As Tolerated, Balance Activity w/Rest, Slowly Increase Activity Home Medications: Ropinirole HCl 2 tab PO QHS PRN 11/17/16 Aspirin [Ecotrin 81 mg EC Tablet] 81 mg PO DAILY tabec 11/26/16 Bisoprolol Fumarate [Zebeta] 2.5 mg PO DAILY 11/26/16 Budesonide/Formoterol Fumarate [Symbicort HFA 160-4.5 mcg Inhaler 6 gm] 2 puff IH Q12 #1 inhaler 11/26/16 Ergocalciferol (Vitamin D2) [Vitamin D2] 50,000 unit PO [id number] 11/26/16 Fluticasone Propionate [Flonase Nasal [place] 50 Mcg/[place] 16 gm] 1 spray NASL Q12 11/26/16 Ipratropium [place] [Atrovent 0.02% Neb 0.5 mg/2.5 ml Ampul] 0.5 mg NEB RTQ6 # 120 vial.neb 11/26/16 Lactobacillus Acidophilus [Probiotic] 1 each PO DAILY 11/26/16 Levalbuterol HCl [Xopenex Neb 1.25 mg/3 ml Ampul] 1.25 mg NEB RTQ6 #120 vial.neb 11/26/16 Montelukast Sodium 10 mg PO DAILY 11/26/16 Oxycodone HCl/Acetaminophen [Percocet 5-325 mg Tablet] 1 tab PO Q4H PRN #20 tab 11/26/16 Prednisone [Sterapred Ds] 1 pkg PO ASDIR PRN 12 Days 11/26/16 Roflumilast [Daliresp 500 mcg Tablet] 500 mcg PO DAILY 11/26/16 Tiotropium [place] [Spiriva Respimat] 1 inh IH DAILY 11/26/16 Additional Information: Stop smoking History of Present Illness Patient complains of: Shortness of breath History of Present Illness: AUDIE KIMBLE is a 56 year old female, with history of COPD in chronic smoker , chronic hypoxemic respiratory failure on 3 L nasal cannula oxygen at home, alpha-1 antitrypsin deficiency, pseudomonas pneumonia, presents to the hospital with shortness of breath of 3 days' duration. It is associated with pleuritic chest pain as well as cough productive of greenish phlegm. There is intermittent low-grade fever and occasional sweating. There is no recent traveling or exposure to someone sick with a virus or tuberculosis. The patient had intermittent sore throat for the past few days subsequently started to develop shortness of breath and wheezing 3 days ago and eventual pleurisy. There is no diaphoresis. No nausea or vomiting. Patient is unable to lay flat in bed. Patient went to the emergency room in the left upper lobe infiltrate was noted on chest x-ray. Patient was given intravenous antibiotic, bronchodilators, and a dose of intravenous steroid and was referred for admission. Hospital Course Hospital Course: The patient was admitted to [facility]. The patient was placed on BiPAP. Due to patient's history of Pseudomonas, broad-spectrum antibiotic was started to include pseudomonas coverage with Zosyn and tobramycin. The patient was likewise started on scheduled and as needed bronchodilators with intravenous steroids. The patient improved. Eventually the patient's sputum culture grew Haemophilus influenza and the patient's tobramycin was discontinued. The patient subsequently improved and was able to be weaned from the ventilator switched to nasal cannula oxygen. Physical therapy was instituted. Intravenous steroids shifted to oral. Patient completed treatment of antibiotics for pneumonia. Blood cultures were negative. The rest of the hospital station unremarkable. The patient was placed back on inhalers. She was eventually discharged home with instruction to stop smoking. Physical Exam Vital Signs: Temp Pulse Resp BP Pulse Ox 97.9 F 106 H 19 127/73 H 100 11/26/16 04:47 11/26/16 14:00 11/26/16 14:00 11/26/16 04:47 11/26/16 04:47 Intake & Output 11/25/16 11/26/16 11/27/16 06:59 06:59 06:59 Intake Total 1631 2600 Output Total 4000 3800 Balance -2369 -1200 Weight 73 kg 70.7 kg General appearance: PRESENT: no acute distress, cooperative Head exam: PRESENT: normocephalic Eye exam: PRESENT: EOMI Mouth exam: PRESENT: moist, neck supple Neck exam: ABSENT: JVD Respiratory exam: PRESENT: decreased breath sounds. ABSENT: rhonchi, wheezes Cardiovascular exam: PRESENT: RRR. ABSENT: gallop GI/Abdominal exam: PRESENT: normal bowel sounds, soft. ABSENT: distended Extremities exam: ABSENT: pedal edema Neurological exam: PRESENT: alert, awake, oriented to person, oriented to place , oriented to time Skin exam: PRESENT: dry, warm. ABSENT: cyanosis Results Laboratory Results: 11/25/16 05:41 11/25/16 05:41 Impressions: Chest X-Ray 11/15/16 12:01 IMPRESSION: Dense consolidation in the left upper lobe obscuring the left hilum and heart border worrisome for pneumonia. Underlying obstructive lung disease Qualifiers PATEINT BEING DISCHARGED WITH ANY OF THE FOLLOWING DIAGNOSIS?: No Plan Discharge Plan: Follow-up with primary care physician in one week. Time Spent: Less than 30 Minutes
[2016-11-26 15:55] VITALS: BP 119/70
== END 2016-11-26 17:40 | disposition home or self-care (01) | DRG 189 ==
LOC: ER 11:39 → UNDOADMIN 13:59 → EH 13:59 → 3S 11-16 20:40
DX: J96.21 Acute and chronic respiratory failure with hypoxia (principal); J18.1 Lobar pneumonia, unspecified organism; A41.9 Sepsis, unspecified organism; J44.1 Chronic obstructive pulmonary disease with (acute) exacerbation; K21.9 Gastro-esophageal reflux disease without esophagitis; E88.01 Alpha-1-antitrypsin deficiency; G25.81 Restless legs syndrome; B96.3 Hemophilus influenzae [H. influenzae] as the cause of diseases classified elsewhere; F17.210 Nicotine dependence, cigarettes, uncomplicated; Z88.2 Allergy status to sulfonamides; Z88.8 Allergy status to other drugs, medicaments and biological substances; Z99.81 Dependence on supplemental oxygen
CPT/HCPCS: 36415; 36600; 71010; 80048; 80053; 82550; 82553; 82607; 82803; 83605; 83735; 84484; 85025; 85027; 87040; 87070; 87077; 87086; 87205; 93005; 93010; 94640; 94660; 94667; 94668; 96365; 96368; 96375; 99291; J0456; J0696; J1650; J1940; J2543; J2920; J2930; J3475; J3490; J7030; J7060; J7512; J7620; J7685

== ENCOUNTER 2016-12-31 10:42 | Inpatient (IN) | payer MEDICAID ==
--- NOTE | 2016-12-31 11:02 | ER Document Report ---
ED Medical Screen (RME) - General TRAVEL OUTSIDE OF THE [place] IN LAST 30 DAYS: No <FANG ACHARYA - Last Filed: 12/31/16 11:03> <NATACHA GONSALVES - Last Filed: 01/07/17 10:47> - General Stated Complaint: DIFFICULTY BREATHING Notes: 56 yo female c/o trouble breathing, coughing, vomiting x 5 days. increased shortness of breath since yesterday. no fever. + diarrhea today. hx/o COPD. home O2 @ 2-3 L. patient reports home Sat 82% + flu shot this season, pneumonia shot 4 yrs ago resp effort slightly labored, lungs with wheeze and rhonchi bilat Sat 94% (FANG ACHARYA) - Related Data Allergies/Adverse Reactions: doxepin [Doxepin] Allergy (Verified 12/31/16 11:00) Shortness of Breath, Swelling etodolac [Etodolac] Allergy (Verified 12/31/16 11:00) loratadine [Loratadine] Allergy (Verified 12/31/16 11:00) Shortness of Breath, Swelling meloxicam [Meloxicam] Allergy (Verified 12/31/16 11:00) Sulfa (Sulfonamide Antibiotics) Allergy (Verified 12/31/16 11:00) Shortness of Breath, Swelling Past Medical History Pulmonary Medical History: Reports: Hx Asthma, Hx Bronchitis, Hx COPD - O2 dependent, 3 L nasal cannula Jrtrz-3-Lqbpwoy Deficiency, Hx Pneumonia - Recurrent pseudomonal pneumonia Neurological Medical History: Reports: Hx Migraine Endocrine Medical History: Denies: Hx Diabetes Mellitus Type 1, Hx Diabetes Mellitus Type 2 GI Medical History: Reports: Hx Gastroesophageal Reflux Disease Traumatic Medical History: Reports: Hx Pneumothorax - x4 R lung, 2010 when the patient had a right lung bx required a chest tube Past Surgical History: Reports: Hx Gynecologic Surgery, Hx Hysterectomy, Hx Tonsillectomy, Hx Tubal Ligation - Immunizations Hx Diphtheria, Pertussis, Tetanus Vaccination: Yes <FANG ACHARYA - Last Filed: 12/31/16 11:03> Course - Laboratory Result Diagrams: 01/02/17 06:03 01/02/17 06:03 <NATACHA GONSALVES - Last Filed: 01/07/17 10:47> - Vital Signs Vital signs: Temp Pulse Resp BP Pulse Ox 97.6 F 96 16 134/70 H 92 01/02/17 08:49 01/02/17 08:49 01/02/17 08:49 01/02/17 08:49 01/02/17 08:49 - Laboratory Laboratory results interpreted by me: 12/31/16 12/31/16 12/31/16 11:20 11:20 16:32 WBC 19.0 H RDW 15.6 H Seg Neuts % (Manual) 91 H Band Neutrophils % 1 L Lymphocytes % (Manual) 1 L Abs Neuts (Manual) 17.5 H Abs Lymphs (Manual) 0.2 L Carbon Dioxide 34 H Lactic Acid 0.6 L Creatine Kinase 27 L Doctor's Discharge <FANG ACHARYA - Last Filed: 12/31/16 11:03> <NATACHA GONSALVES - Last Filed: 01/07/17 10:47> - Discharge Clinical Impression: Dyspnea, Bronchitis, COPD exacerbation Condition: Stable Disposition: ADMITTED INPATIENT
[2016-12-31 11:45] LABS: HEMATOCRIT 39.3 % (36.0-47.0); HEMOGLOBIN 12.8 g/dL (12.0-15.5); HGB HCT DIFFERENCE -0.9; MEAN CORPUSCULAR HEMOGLOBIN 29.3 pg (27.0-33.4); MEAN CORPUSCULAR HGB CONC 32.5 g/dL (32.0-36.0); MEAN CORPUSCULAR VOLUME 90 fl (80-97); RED BLOOD COUNT 4.36 10^6/uL (3.72-5.28); RED CELL DISTRIBUTION WIDTH 15.6 % (11.5-14.0)
[2016-12-31] MEDS ORDERED: IPRATROPIUM/ALBUTEROL 0.5-2.5 MG/3 ML AMPUL NEB ONE ×2 (11:58→13:51)
[2016-12-31] MEDS ORDERED: NORMAL SALINE 1000 ML 1,000 ML IV ONE (11:59)
[2016-12-31] MEDS ORDERED: ONDANSETRON HCL INJ/PF 4 MG/2 ML SDV IV ONE (11:59)
[2016-12-31 12:08] LABS: BAND NEUTROPHILS % (MANUAL) 1 % (3-5); BASOPHILS % (MANUAL) 0 % (0-2); EOSINOPHILS % (MANUAL) 1 % (0-6); LYMPHOCYTES % (MANUAL) 1 % (13-45); TOTAL CELLS COUNTED 100
[2016-12-31 12:09] LABS: ANISOCYTOSIS SLIGHT; STOMATOCYTES SLIGHT
--- NOTE | 2016-12-31 12:09 | ER Document Report ---
ED Respiratory Problem - General Chief Complaint: Breathing Difficulty Stated Complaint: DIFFICULTY BREATHING Notes: The patient is a 57-year-old female, past medical history COPD (on home 3L O2), alpha-1 antitrypsin deficiency, frequent pneumonias, presents with increased coughing and shortness of breath over the past 2 days. She is also feeling nauseous and had an episode of watery diarrhea earlier today. She was admitted to the hospital for pneumonia 2 weeks ago and was on antibiotics. She denies fevers, abdominal pain, hemoptysis, chest pain, leg swelling, back pain, recent travel or fevers. TRAVEL OUTSIDE OF THE [place] IN LAST 30 DAYS: No - Related Data Allergies/Adverse Reactions: doxepin [Doxepin] Allergy (Verified 12/31/16 11:00) Shortness of Breath, Swelling etodolac [Etodolac] Allergy (Verified 12/31/16 11:00) loratadine [Loratadine] Allergy (Verified 12/31/16 11:00) Shortness of Breath, Swelling meloxicam [Meloxicam] Allergy (Verified 12/31/16 11:00) Sulfa (Sulfonamide Antibiotics) Allergy (Verified 12/31/16 11:00) Shortness of Breath, Swelling Past Medical History - General Information source: Patient - Social History Smoking Status: Former Smoker Chew tobacco use (# tins/day): No Frequency of alcohol use: None Drug Abuse: None Family History: Hyperlipidemia, Hypertension Patient has suicidal ideation: No Patient has homicidal ideation: No Pulmonary Medical History: Reports: Hx Asthma, Hx Bronchitis, Hx COPD - O2 dependent, 3 L nasal cannula Gwads-2-Linknse Deficiency, Hx Pneumonia - Recurrent pseudomonal pneumonia Neurological Medical History: Reports: Hx Migraine Endocrine Medical History: Denies: Hx Diabetes Mellitus Type 1, Hx Diabetes Mellitus Type 2 Renal/ Medical History: Denies: Hx Peritoneal Dialysis GI Medical History: Reports: Hx Gastroesophageal Reflux Disease Traumatic Medical History: Reports: Hx Pneumothorax - x4 R lung, 2010 when the patient had a right lung bx required a chest tube Past Surgical History: Reports: Hx Gynecologic Surgery, Hx Hysterectomy, Hx Tonsillectomy, Hx Tubal Ligation - Immunizations Hx Diphtheria, Pertussis, Tetanus Vaccination: Yes Hx Pneumococcal Vaccination: 04/25/09 Review of Systems - Review of Systems Notes: REVIEW OF SYSTEMS: CONSTITUTIONAL: -fevers, -chills EENT: -eye pain, -difficulty swallowing, -nasal congestion CARDIOVASCULAR:-chest pain, -syncope. RESPIRATORY: +cough, +SOB GASTROINTESTINAL: -abdominal pain, +nausea, -vomiting, +diarrhea GENITOURINARY: -dysuria, -hematuria MUSCULOSKELETAL: -back pain, -neck pain SKIN: -rash or skin lesions. HEMATOLOGIC: -easy bruising or bleeding. LYMPHATIC: -swollen, enlarged glands. NEUROLOGICAL: -altered mental status or loss of consciousness, -headache, - neurologic symptoms PSYCHIATRIC: -anxiety, -depression. ALL OTHER SYSTEMS REVIEWED AND NEGATIVE. Physical Exam - Vital signs Vitals: Temp Pulse Resp BP Pulse Ox 97.4 F 107 H 22 H 127/74 H 94 12/31/16 10:51 12/31/16 10:51 12/31/16 10:51 12/31/16 10:51 12/31/16 10:51 - Notes Notes: PHYSICAL EXAMINATION: GENERAL: In no acute distress. HEAD: Atraumatic, normocephalic. EYES: Pupils equal round and reactive to light, extraocular movements intact, sclera anicteric, conjunctiva are normal. ENT: nares patent, oropharynx clear without exudates. Moist mucous membranes. NECK: Normal range of motion, supple without lymphadenopathy LUNGS: Crackles in left lower lung. Mildly tachypneic. HEART: Tachycardia, regular rhythm ABDOMEN: Soft, nontender, normoactive bowel sounds. No guarding, no rebound. No masses appreciated. EXTREMITIES: Normal range of motion, no pitting or edema. No cyanosis. NEUROLOGICAL: Cranial nerves grossly intact. Normal speech, normal gait. Normal sensory, motor, and reflex exams. PSYCH: Normal mood, normal affect. SKIN: Warm, Dry, normal turgor, no rashes or lesions noted. Course - Re-evaluation Re-evalutation: 12/31/16 15:32 Pt without evidence of pneumonia on chest x-ray. With leukocytosis, tachypnea and crackles at left lower lung base, will treat with Levaquin for clinical pneumonia. After DuoNeb and steroids, patient's work of breathing has improved and she feels slightly better. Offered outpatient vs. admission for further evaluation and treatment of her shortness of breath and possible pneumonia. Patient attempted to walk to the bathroom and she became very short of breath. Because patient is still SOB when walking and at rest, she would like to be admitted for IV antibiotics and further treatment. - Vital Signs Vital signs: Temp Pulse Resp BP Pulse Ox 97.4 F 107 H 22 H 127/74 H 94 12/31/16 10:51 12/31/16 10:51 12/31/16 12:20 12/31/16 10:51 12/31/16 10:51 - Laboratory Result Diagrams: 12/31/16 11:20 12/31/16 11:20 Laboratory results interpreted by me: 12/31/16 12/31/16 12/31/16 11:20 11:20 16:32 WBC 19.0 H RDW 15.6 H Seg Neuts % (Manual) 91 H Band Neutrophils % 1 L Lymphocytes % (Manual) 1 L Abs Neuts (Manual) 17.5 H Abs Lymphs (Manual) 0.2 L Carbon Dioxide 34 H Lactic Acid 0.6 L Creatine Kinase 27 L - Diagnostic Test Radiology reviewed: Image reviewed, Reports reviewed Radiology results interpreted by me: CXR: NAD Discharge - Discharge Clinical Impression: Bronchitis, COPD exacerbation Dyspnea Qualifiers: Dyspnea type: shortness of breath Qualified Code(s): R06.02 - Shortness of breath Condition: Stable Disposition: ADMITTED INPATIENT Admitting Provider: Hospitalist - [facility] Admitted: Medical Floor Prescriptions: Albuterol Sulfate [Proair HFA Inhalation Aerosol 8.5 gm MDI] 2 puff IH Q4H PRN # 1 mdi PRN Reason: Levofloxacin [Levaquin 750 mg Tablet] 750 mg PO DAILY #10 tablet Prednisone [Deltasone 20 mg Tablet] 3 tab PO DAILY 5 Days Referrals: LUH MARTINS MD [Primary Care Provider] - Follow up as needed
[2016-12-31 12:14] LABS: ALANINE AMINOTRANSFERASE 18 U/L (9-52); ALBUMIN 4.4 g/dL (3.5-5.0); ALKALINE PHOSPHATASE 66 U/L (38-126); ANION GAP 9 (5-19); ASPARTATE AMINO TRANSFERASE 15 U/L (14-36); BILIRUBIN,TOTAL 0.9 mg/dL (0.2-1.3); BLOOD UREA NITROGEN 8 mg/dL (7-20); CALCIUM 9.8 mg/dL (8.4-10.2); CARBON DIOXIDE 34 mmol/L (22-30); CHLORIDE 100 mmol/L (98-107); CREATINE KINASE 27 U/L (30-135); CREATININE RESULT 0.52 mg/dL (0.52-1.25); GLUCOSE 96 mg/dL (75-110); SODIUM 142.6 mmol/L (137-145); TOTAL PROTEIN 6.9 g/dL (6.3-8.2)
[2016-12-31 12:24] LABS: CREATINE KINASE MB 0.64 ng/mL (<4.55)
[2016-12-31 12:25] LABS: TROPONIN I < 0.012 ng/mL
[2016-12-31] MEDS ORDERED: METHYLPREDNISOLONE INJ 125 MG/2 ML SDV IV ONE (13:51)
[2016-12-31] MEDS ORDERED: LEVOFLOXACIN 750 MG/D5W RTU 150 ML IV ONE (15:45)
[2016-12-31] MEDS ORDERED: ALBUTEROL SULFATE 0.083% NEB 2.5 MG/3 ML AMPUL NEB PRN (18:40)
[2016-12-31] MEDS ORDERED: ONDANSETRON HCL INJ/PF 4 MG/2 ML SDV IV PRN (18:40)
[2016-12-31] MEDS ORDERED: ONDANSETRON 4 MG TAB.RAPDIS PO PRN (18:40)
--- NOTE | 2016-12-31 18:54 | PDOC H&P ---
History of Present Illness Admission Date/PCP: LUH MARTINS MD Patient complains of: Cough, shortness of breath and diarrhea. History of Present Illness: AUDIE KIMBLE is a 56 year old female with COPD and alpha-1 antitrypsin who is known to me from previous admissions who presents with a 2 day history of a productive cough. Patient reports that on Thursday she began to have a cough that this got progressively worse. She's had some sharp chest pain associated with the coughing. The patient has had some chills but denies any fevers. The patient has had worsening dyspnea on exertion but denies any orthopnea or PND. She also has noted that she started wheezing. Patient does relate that she has been off cigarettes now for greater than a month. The patient also reports this morning she began to have greenish watery diarrhea. Patient reports last shock steroids or antibiotics was 2 weeks ago. She denies any recent travel. She denies any prolonged immobility. She denies being around any other sick exposures. Past Medical History Cardiac Medical History: Reports: Hypertension Pulmonary Medical History: Reports: Asthma, Bronchitis, Chronic Obstructive Pulmonary Disease (COPD) - O2 dependent, 3 L nasal cannula [id number] Deficiency, Pneumonia - Recurrent pseudomonal pneumonia, Other - History of pneumothorax after chest biopsy. EENT Medical History: Reports: None Neurological Medical History: Reports: Migraine Endocrine Medical History: Denies: Diabetes Mellitus Type 1, Diabetes Mellitus Type 2 Renal/ Medical History: Reports: None Malignancy Medical History: Reports: None GI Medical History: Reports: Gastroesophageal Reflux Disease Musculoskeltal Medical History: Reports: None Traumatic Medical History: Reports: Pneumothorax - x4 R lung, 2010 when the patient had a right lung bx required a chest tube Past Surgical History Past Surgical History: Reports: Hysterectomy, Tonsillectomy, Tubal Ligation Social History Information Source: Patient Lives with: Spouse/Significant other Smoking Status: Former Smoker Frequency of Alcohol Use: None Hx Recreational Drug Use: No Drugs: None Hx Prescription Drug Abuse: No - Advance Directive Resuscitation Status: Full Code Surrogate healthcare decision maker:: Family History Family History: Hyperlipidemia, Hypertension Parental Family History Reviewed: Yes Children Family History Reviewed: No Sibling(s) Family History Reviewed.: No Medication/Allergy Home Medications: Ropinirole HCl 2 tab PO QHS PRN 11/17/16 Aspirin [Ecotrin 81 mg EC Tablet] 81 mg PO DAILY tabec 11/26/16 Bisoprolol Fumarate [Zebeta] 2.5 mg PO DAILY 11/26/16 Budesonide/Formoterol Fumarate [Symbicort HFA 160-4.5 mcg Inhaler 6 gm] 2 puff IH Q12 #1 inhaler 11/26/16 Ergocalciferol (Vitamin D2) [Vitamin D2] 50,000 unit PO [id number] 11/26/16 Fluticasone Propionate [Flonase Nasal [place] 50 Mcg/[place] 16 gm] 1 spray NASL Q12 11/26/16 Ipratropium [place] [Atrovent 0.02% Neb 0.5 mg/2.5 ml Ampul] 0.5 mg NEB RTQ6 # 120 vial.neb 11/26/16 Lactobacillus Acidophilus [Probiotic] 1 each PO DAILY 11/26/16 Levalbuterol HCl [Xopenex Neb 1.25 mg/3 ml Ampul] 1.25 mg NEB RTQ6 #120 vial.neb 11/26/16 Montelukast Sodium 10 mg PO DAILY 11/26/16 Oxycodone HCl/Acetaminophen [Percocet 5-325 mg Tablet] 1 tab PO Q4H PRN #20 tab 11/26/16 Prednisone [Sterapred Ds] 1 pkg PO ASDIR PRN 12 Days 11/26/16 Roflumilast [Daliresp 500 mcg Tablet] 500 mcg PO DAILY 11/26/16 Tiotropium [place] [Spiriva Respimat] 1 inh IH DAILY 11/26/16 Albuterol Sulfate [Proair HFA Inhalation Aerosol 8.5 gm MDI] 2 puff IH Q4H PRN # 1 mdi 12/31/16 Levofloxacin [Levaquin 750 mg Tablet] 750 mg PO DAILY #10 tablet 12/31/16 Prednisone [Deltasone 20 mg Tablet] 3 tab PO DAILY 5 Days 12/31/16 Allergies/Adverse Reactions: doxepin [Doxepin] Allergy (Verified 12/31/16 11:00) Shortness of Breath, Swelling etodolac [Etodolac] Allergy (Verified 12/31/16 11:00) loratadine [Loratadine] Allergy (Verified 12/31/16 11:00) Shortness of Breath, Swelling meloxicam [Meloxicam] Allergy (Verified 12/31/16 11:00) Sulfa (Sulfonamide Antibiotics) Allergy (Verified 12/31/16 11:00) Shortness of Breath, Swelling Review of Systems Constitutional: PRESENT: chills, fatigue. ABSENT: fever(s), headache(s), weight gain, weight loss Eyes: ABSENT: visual disturbances Ears: ABSENT: hearing changes Cardiovascular: PRESENT: chest pain - Sharp pain associated with coughing., dyspnea on exertion. ABSENT: edema, orthropnea, palpitations Respiratory: PRESENT: as per HPI Gastrointestinal: PRESENT: diarrhea. ABSENT: abdominal pain, constipation, hematemesis, hematochezia, nausea, vomiting Genitourinary: ABSENT: dysuria, hematuria Musculoskeletal: ABSENT: joint swelling Integumentary: ABSENT: rash, wounds Neurological: ABSENT: abnormal gait, abnormal speech, confusion, dizziness, focal weakness, syncope Psychiatric: ABSENT: anxiety, depression Physical Exam Vital Signs: Temp Pulse Resp BP Pulse Ox 97.4 F 107 H 22 H 127/74 H 94 12/31/16 10:51 12/31/16 10:51 12/31/16 12:20 12/31/16 10:51 12/31/16 10:51 Intake & Output 12/30/16 12/31/16 01/01/17 06:59 06:59 06:59 Weight 55.6 kg General appearance: PRESENT: no acute distress Head exam: PRESENT: atraumatic, normocephalic Eye exam: PRESENT: conjunctiva pink, EOMI, PERRLA. ABSENT: scleral icterus Ear exam: PRESENT: normal external ear exam Mouth exam: PRESENT: moist, tongue midline Neck exam: ABSENT: carotid bruit, JVD, lymphadenopathy, thyromegaly Respiratory exam: PRESENT: rhonchi, wheezes - Bilateral expiratory wheezes with some coarse rhonchi. ABSENT: rales Cardiovascular exam: PRESENT: RRR. ABSENT: diastolic murmur, rubs, systolic murmur Pulses: PRESENT: normal dorsalis pedis pul GI/Abdominal exam: PRESENT: normal bowel sounds, soft. ABSENT: distended, guarding, mass, organolmegaly, rebound, tenderness Rectal exam: PRESENT: deferred Extremities exam: ABSENT: calf tenderness, clubbing, pedal edema Neurological exam: PRESENT: alert, awake, oriented to person, oriented to place , oriented to time, oriented to situation, CN II-XII grossly intact. ABSENT: motor sensory deficit Psychiatric exam: PRESENT: appropriate affect Skin exam: PRESENT: dry, intact, warm. ABSENT: cyanosis, rash Results Laboratory Results: 12/31/16 11:20 12/31/16 11:20 12/31/16 12/31/16 12/31/16 11:20 11:20 16:32 WBC 19.0 H RBC 4.36 Hgb 12.8 Hct 39.3 MCV 90 MCH 29.3 MCHC 32.5 RDW 15.6 H Plt Count 157 Seg Neutrophils % Not Reportable Lymphocytes % Not Reportable Monocytes % Not Reportable Eosinophils % Not Reportable Basophils % Not Reportable Absolute Neutrophils Not Reportable Absolute Lymphocytes Not Reportable Absolute Monocytes Not Reportable Absolute Eosinophils Not Reportable Absolute Basophils Not Reportable Sodium 142.6 Potassium 4.0 Chloride 100 Carbon Dioxide 34 H Anion Gap 9 BUN 8 Creatinine 0.52 Est GFR ( Amer) > 60 Est GFR (Non-Af Amer) > 60 Glucose 96 Lactic Acid 0.6 L Calcium 9.8 Total Bilirubin 0.9 AST 15 ALT 18 Alkaline Phosphatase 66 Total Protein 6.9 Albumin 4.4 12/31/16 12/31/16 11:20 11:20 Creatine Kinase 27 L CK-MB (CK-2) 0.64 Troponin I < 0.012 Impressions: Chest X-Ray 12/31/16 11:05 IMPRESSION: Advanced obstructive disease, with enlarged airspaces, hyperinflation and flattening of the hemidiaphragms. No acute infiltrates. No pleural effusion. No pneumothorax. Assessment & Plan - Diagnosis (1) COPD with respiratory distress, acute Is this a current diagnosis for this admission?: YesPlan: Patient appears to have bronchitis along with acute COPD exacerbation. Patient has been cigarette free for 1 month according to her report. We will treat with Zosyn, Solu-Medrol, nebulizers. (2) Dbdrc-7-dlolhwgbbtn deficiency Is this a current diagnosis for this admission?: YesPlan: The patient will be treated with IV steroids. (3) Bronchitis Is this a current diagnosis for this admission?: YesPlan: Patient has a history of having Pseudomonas is resistant to Levaquin as well as growing out Haemophilus. We'll give Zosyn because of this. (4) Diarrhea Is this a current diagnosis for this admission?: YesPlan: Patient's last antibiotics were 2 weeks ago. Will check a C. difficile. We'll give IV fluids to replace her diarrhea. (5) Tobacco abuse Is this a current diagnosis for this admission?: YesPlan: Patient has been smoke free for greater than a month. She is congratulated. (6) Hypertension Qualifiers: Hypertension type: essential hypertension Qualified Code(s): I10 - Essential (primary) hypertension Is this a current diagnosis for this admission?: Yes (7) DVT prophylaxis Is this a current diagnosis for this admission?: YesPlan: We'll give Lovenox. - Time Time Spent: 50 to 70 Minutes - Inpatient Certification Medical Necessity: Need for IV Antibiotics - Plan Summary Plan Summary: We will admit as a full admission as I anticipate his require greater than 2 midnight stay given her severe lung disease and the need for IV steroids and oxygen therapy.
[2016-12-31] MEDS ORDERED: ENOXAPARIN SODIUM INJ 40 MG/0.4 ML DISP.SYRIN SUBCUT ONE (20:00)
[2016-12-31] MEDS: ACETAMINOPHEN 325 MG TABLET PO PRN (20:12)
[2016-12-31] MEDS: IPRATROPIUM/ALBUTEROL 0.5-2.5 MG/3 ML AMPUL NEB SCH (20:57)
[2016-12-31] MEDS: PIPERACILLIN SODIUM/TAZOBACTAM 3.375 GM in NORMAL SALINE 100 ML IV SCH (21:01)
[2016-12-31] MEDS: FAMOTIDINE 20 MG TABLET PO SCH (22:59)
[2016-12-31] MEDS: METHYLPREDNISOLONE INJ 40 MG/1 ML SDV IV SCH (23:03)
[2016-12-31] MEDS: NORMAL SALINE 1000 ML 1,000 ML IV PRN (23:11)
[2017-01-01] MEDS: IPRATROPIUM/ALBUTEROL 0.5-2.5 MG/3 ML AMPUL NEB SCH ×4 (02:53→19:46)
[2017-01-01] MEDS: PIPERACILLIN SODIUM/TAZOBACTAM 3.375 GM in NORMAL SALINE 100 ML IV SCH ×3 (02:58→14:20)
[2017-01-01] MEDS: METHYLPREDNISOLONE INJ 40 MG/1 ML SDV IV SCH ×3 (05:31→22:06)
[2017-01-01 06:52] LABS: HEMATOCRIT 31.1 % (36.0-47.0); HGB HCT DIFFERENCE -0.2; MEAN CORPUSCULAR HEMOGLOBIN 29.5 pg (27.0-33.4); MEAN CORPUSCULAR HGB CONC 33.2 g/dL (32.0-36.0); MEAN CORPUSCULAR VOLUME 89 fl (80-97); RED BLOOD COUNT 3.49 10^6/uL (3.72-5.28); RED CELL DISTRIBUTION WIDTH 15.4 % (11.5-14.0); WHITE BLOOD COUNT 13.2 10^3/uL (4.0-10.5)
[2017-01-01 06:58] LABS: HEMOGLOBIN 10.3 g/dL (12.0-15.5)
[2017-01-01 07:25] LABS: ANION GAP 7 (5-19); BLOOD UREA NITROGEN 12 mg/dL (7-20); CALCIUM 9.1 mg/dL (8.4-10.2); CARBON DIOXIDE 31 mmol/L (22-30); CHLORIDE 103 mmol/L (98-107); CREATININE RESULT 0.66 mg/dL (0.52-1.25); GLUCOSE 145 mg/dL (75-110); POTASSIUM 4.3 mmol/L (3.6-5.0); SODIUM 141.2 mmol/L (137-145)
[2017-01-01] MEDS ORDERED: ENOXAPARIN SODIUM INJ 40 MG/0.4 ML DISP.SYRIN SUBCUT SCH (08:00)
[2017-01-01] MEDS ORDERED: (PENDING PHARMACY ID) (Lactobacillus Acidophilus [Probiotic] 1 EACH) PO PRN (09:43)
[2017-01-01] MEDS: NORMAL SALINE 1000 ML 1,000 ML IV PRN (09:58)
[2017-01-01] MEDS: FAMOTIDINE 20 MG TABLET PO SCH ×2 (09:58→22:06)
[2017-01-01] MEDS ORDERED: (PENDING PHARMACY ID) (Tiotropium Bromide [Spiriva Respimat] 2 PUFF) IH SCH ×2 (10:00)
[2017-01-01] MEDS ORDERED: BISOPROLOL FUMARATE 5 MG PO SCH (10:00)
[2017-01-01] MEDS ORDERED: ERGOCALCIFEROL (VITAMIN D2) 50000 UNIT (1.25 MG) CAPSULE PO SCH ×2 (10:00→10:30)
[2017-01-01] MEDS ORDERED: (PENDING PHARMACY ID) (Roflumilast [Daliresp 500 Mcg Tablet] 500 MCG) PO SCH (10:00)
[2017-01-01] MEDS ORDERED: FLUTICASONE NASAL SPRAY 50 MCG/SPRY 120 SPRAY/16 GM NASL ONE (10:00)
[2017-01-01] MEDS ORDERED: BUDESONIDE/FORMOTEROL 160-4.5 MCG 60 PUFF/6 GM MDI IH ONE (10:30)
[2017-01-01] MEDS ORDERED: MONTELUKAST SODIUM 10 MG TABLET PO ONE (10:30)
[2017-01-01] MEDS ORDERED: ASPIRIN 81 MG TABLET, ENT COATED PO ONE (10:30)
[2017-01-01] MEDS ORDERED: ATENOLOL 50 MG TABLET PO ONE (10:30)
[2017-01-01] MEDS ORDERED: ROFLUMILAST 500 MCG TABLET PO ONE (10:30)
--- NOTE | 2017-01-01 10:54 | PDOC PROGRESS REPORT ---
Subjective Progress Note for:: 01/01/17 Subjective:: Patient reports that her breathing is doing much better and that her diarrhea has resolved. Physical Exam Vital Signs: Temp Pulse Resp BP Pulse Ox 97.7 F 94 22 H 113/64 97 01/01/17 07:50 01/01/17 07:50 01/01/17 07:50 01/01/17 07:50 01/01/17 07:50 General appearance: PRESENT: no acute distress Eye exam: PRESENT: conjunctiva pink. ABSENT: scleral icterus Ear exam: PRESENT: normal external ear exam Mouth exam: PRESENT: moist, tongue midline Neck exam: ABSENT: JVD Respiratory exam: PRESENT: wheezes - Scattered expiratory wheezes bilaterally.. ABSENT: rales, rhonchi Cardiovascular exam: PRESENT: RRR. ABSENT: diastolic murmur, rubs, systolic murmur GI/Abdominal exam: PRESENT: normal bowel sounds, soft. ABSENT: distended, guarding, mass, organolmegaly, rebound, tenderness Extremities exam: PRESENT: full ROM. ABSENT: calf tenderness, clubbing, pedal edema Neurological exam: PRESENT: alert, awake, oriented to person, oriented to place , oriented to time, oriented to situation, CN II-XII grossly intact. ABSENT: motor sensory deficit Psychiatric exam: PRESENT: appropriate affect Skin exam: PRESENT: dry, intact, warm. ABSENT: cyanosis, rash Results Laboratory Results: 01/01/17 06:00 01/01/17 06:00 01/01/17 01/01/17 06:00 06:00 WBC 13.2 H RBC 3.49 L Hgb 10.3 L D Hct 31.1 L MCV 89 MCH 29.5 MCHC 33.2 RDW 15.4 H Plt Count 117 L Sodium 141.2 Potassium 4.3 Chloride 103 Carbon Dioxide 31 H Anion Gap 7 BUN 12 Creatinine 0.66 Est GFR ( Amer) > 60 Est GFR (Non-Af Amer) > 60 Glucose 145 H Calcium 9.1 Impressions: Chest X-Ray 12/31/16 11:05 IMPRESSION: Advanced obstructive disease, with enlarged airspaces, hyperinflation and flattening of the hemidiaphragms. No acute infiltrates. No pleural effusion. No pneumothorax. Assessment & Plan - Diagnosis (1) COPD with respiratory distress, acute Is this a current diagnosis for this admission?: YesPlan: Patient appears to have bronchitis along with acute COPD exacerbation. Patient has been cigarette free for 1 month according to her report. We will treat with Zosyn, Solu-Medrol, nebulizers. (2) Ipoxy-7-fitigigkckp deficiency Is this a current diagnosis for this admission?: YesPlan: The patient will be treated with IV steroids. (3) Bronchitis Is this a current diagnosis for this admission?: YesPlan: Patient has a history of having Pseudomonas is resistant to Levaquin as well as growing out Haemophilus. We'll give Zosyn because of this. (4) Diarrhea Is this a current diagnosis for this admission?: YesPlan: Patient's last antibiotics were 2 weeks ago. She reports resolution of her diarrhea. C. difficile has not been obtain because her diarrhea has resolved. We'll give IV fluids to replace her diarrhea. (5) Tobacco abuse Is this a current diagnosis for this admission?: YesPlan: Patient has been smoke free for greater than a month. She is congratulated. (6) Hypertension Qualifiers: Hypertension type: essential hypertension Qualified Code(s): I10 - Essential (primary) hypertension Is this a current diagnosis for this admission?: Yes (7) DVT prophylaxis Is this a current diagnosis for this admission?: YesPlan: We'll give Lovenox. - Time Time Spent with patient: 25-34 minutes - Inpatient Certification Medical Necessity: Need Close Monitoring Due to Risk of Patient Decompensation
--- NOTE | 2017-01-01 11:19 | EKG REPORT ---
SEVERITY:- ABNORMAL ECG - SINUS TACHYCARDIA RIGHT AXIS DEVIATION CONSIDER LEFT VENTRICULAR HYPERTROPHY : Confirmed by: Marcela Lombardo 01-Jan-2017 11:18:46
[2017-01-01] MEDS: ACETAMINOPHEN 325 MG TABLET PO PRN (16:02)
[2017-01-01] MEDS ORDERED: ROPINIROLE HCL PO SCH (22:00)
[2017-01-01] MEDS ORDERED: ROPINIROLE HCL 2 MG TABLET PO SCH (22:00)
[2017-01-02] MEDS: IPRATROPIUM/ALBUTEROL 0.5-2.5 MG/3 ML AMPUL NEB SCH ×2 (01:26→07:47)
[2017-01-02] MEDS: PIPERACILLIN SODIUM/TAZOBACTAM 3.375 GM in NORMAL SALINE 100 ML IV SCH (02:35)
[2017-01-02] MEDS: METHYLPREDNISOLONE INJ 40 MG/1 ML SDV IV SCH (05:52)
[2017-01-02 07:09] LABS: HEMATOCRIT 31.4 % (36.0-47.0); HEMOGLOBIN 10.3 g/dL (12.0-15.5); HGB HCT DIFFERENCE -0.5; MEAN CORPUSCULAR HEMOGLOBIN 29.4 pg (27.0-33.4); MEAN CORPUSCULAR HGB CONC 32.8 g/dL (32.0-36.0); MEAN CORPUSCULAR VOLUME 90 fl (80-97); RED BLOOD COUNT 3.49 10^6/uL (3.72-5.28); RED CELL DISTRIBUTION WIDTH 15.4 % (11.5-14.0); WHITE BLOOD COUNT 12.6 10^3/uL (4.0-10.5)
[2017-01-02 07:39] LABS: ANION GAP 8 (5-19); BLOOD UREA NITROGEN 10 mg/dL (7-20); CALCIUM 8.9 mg/dL (8.4-10.2); CARBON DIOXIDE 29 mmol/L (22-30); CHLORIDE 104 mmol/L (98-107); CREATININE RESULT 0.54 mg/dL (0.52-1.25); GLUCOSE 126 mg/dL (75-110); POTASSIUM 4.2 mmol/L (3.6-5.0)
[2017-01-02 07:50] LABS: BASOPHILS % (MANUAL) 0 % (0-2); EOSINOPHILS % (MANUAL) 4 % (0-6); LYMPHOCYTES % (MANUAL) 1 % (13-45); TOTAL CELLS COUNTED 100
[2017-01-02 07:51] LABS: ANISOCYTOSIS SLIGHT; TOXIC GRANULATION SLIGHT
[2017-01-02 08:47] VITALS: BP 134/70
[2017-01-02] MEDS ORDERED: FLUTICASONE NASAL SPRAY 50 MCG/SPRY 120 SPRAY/16 GM NASL SCH (10:00)
[2017-01-02] MEDS ORDERED: TIOTROPIUM BROMIDE DPI 5 CAP/KIT (18 MCG/CAP) IH SCH (10:00)
[2017-01-02] MEDS ORDERED: ROFLUMILAST 500 MCG TABLET PO SCH (10:00)
[2017-01-02] MEDS ORDERED: LACTOBACILLUS ACIDOPHILUS 250 MG TAB PO SCH (10:00)
[2017-01-02] MEDS ORDERED: MONTELUKAST SODIUM 10 MG TABLET PO SCH (10:00)
[2017-01-02] MEDS ORDERED: ASPIRIN 81 MG TABLET, ENT COATED PO SCH (10:00)
[2017-01-02] MEDS ORDERED: BUDESONIDE/FORMOTEROL 160-4.5 MCG 60 PUFF/6 GM MDI IH SCH (10:00)
[2017-01-02] MEDS ORDERED: ATENOLOL 50 MG TABLET PO SCH (10:00)
[2017-01-02] MEDS: FAMOTIDINE 20 MG TABLET PO SCH (10:14)
[2017-01-02] MEDS: ACETAMINOPHEN 325 MG TABLET PO PRN (10:14)
--- NOTE | 2017-01-02 11:39 | PDOC DISCHARGE SUMMARY ---
General - Admit/Disc Date/PCP Admission Date/Primary Care Provider: 12/31/16 18:40 LUH MARTINS MD Discharge Date: 01/02/17 - Discharge Diagnosis (1) COPD with respiratory distress, acute Is this a current diagnosis for this admission?: Yes (2) Qyebn-8-jjlhhkseobo deficiency Is this a current diagnosis for this admission?: Yes (3) Bronchitis Is this a current diagnosis for this admission?: Yes (4) Diarrhea Is this a current diagnosis for this admission?: Yes (5) Tobacco abuse Is this a current diagnosis for this admission?: Yes (6) Hypertension Is this a current diagnosis for this admission?: Yes (7) DVT prophylaxis Is this a current diagnosis for this admission?: Yes - Additional Information Resuscitation Status: Full Code Discharge Diet: Regular Discharge Activity: Activity As Tolerated Home Medications: Ropinirole HCl 2 tab PO QHS 11/17/16 Aspirin [Ecotrin 81 mg EC Tablet] 81 mg PO DAILY tabec 11/26/16 Bisoprolol Fumarate [Zebeta] 5 mg PO DAILY 11/26/16 Budesonide/Formoterol Fumarate [Symbicort HFA 160-4.5 mcg Inhaler 6 gm] 2 puff IH Q12 #1 inhaler 11/26/16 Ergocalciferol (Vitamin D2) [Vitamin D2] 50,000 unit PO [id number] 11/26/16 Fluticasone Propionate [Flonase Nasal [place] 50 Mcg/[place] 16 gm] 1 spray NASL Q12 11/26/16 Lactobacillus Acidophilus [Probiotic] 1 each PO DAILYP PRN 11/26/16 Montelukast Sodium 10 mg PO DAILY 11/26/16 Roflumilast [Daliresp 500 mcg Tablet] 500 mcg PO DAILY 11/26/16 Tiotropium [place] [Spiriva Respimat] 2 puff IH DAILY 11/26/16 Albuterol Sulfate [Ventolin 0.083% Neb 2.5 mg/3 mL Ampul] 2.5 mg NEB RTQ4 Cyanocobalamin (Vitamin B-12) [Vitamin B-12 Inj 1000 Mcg/1 ml Vial] 1,000 mcg INJ Q30D 12/31/16 Ipratropium [place] [Atrovent 0.02% Neb 0.5 mg/2.5 ml Ampul] 0.5 mg NEB RTQ4 Levalbuterol Tartrate [Xopenex Hfa] 2 puff IH Q4HP PRN 12/31/16 Amox Tr/Potassium Clavulanate [Augmentin 875-125 mg Tablet] 1 tab PO BID #24 tablet 01/02/17 Prednisone 10 mg PO DAILY #39 tablet 01/02/17 History of Present Illness History of Present Illness: AUDIE KIMBLE is a 56 year old female with COPD and alpha-1 antitrypsin who is known to me from previous admissions who presents with a 2 day history of a productive cough. Patient reports that on Thursday she began to have a cough that this got progressively worse. She's had some sharp chest pain associated with the coughing. The patient has had some chills but denies any fevers. The patient has had worsening dyspnea on exertion but denies any orthopnea or PND. She also has noted that she started wheezing. Patient does relate that she has been off cigarettes now for greater than a month. The patient also reports this morning she began to have greenish watery diarrhea. Patient reports last shock steroids or antibiotics was 2 weeks ago. She denies any recent travel. She denies any prolonged immobility. She denies being around any other sick exposures. Hospital Course Hospital Course: 86-year-old female with alpha-1 antitrypsin deficiency who presented with an acute COPD exacerbation along with bronchitis. Patient was treated with IV Levaquin as well as IV steroids and nebulizers. She had quick improvement in her symptoms and she was at her baseline on the day of discharge. She will complete a course of antibiotics and oral prednisone at home. The patient's other medical problems were stable during this hospitalization. Physical Exam Vital Signs: Temp Pulse Resp BP Pulse Ox 97.6 F 96 16 134/70 H 92 01/02/17 08:49 01/02/17 08:49 01/02/17 08:49 01/02/17 08:49 01/02/17 08:49 Intake & Output 01/01/17 01/02/17 01/03/17 06:59 06:59 06:59 Intake Total 550 240 Balance 550 240 General appearance: PRESENT: no acute distress Eye exam: PRESENT: conjunctiva pink. ABSENT: scleral icterus Mouth exam: PRESENT: dry mucosa Neck exam: ABSENT: carotid bruit, JVD, lymphadenopathy, thyromegaly Respiratory exam: PRESENT: clear to auscultation lashell. ABSENT: rales, rhonchi, wheezes Cardiovascular exam: PRESENT: RRR. ABSENT: diastolic murmur, rubs, systolic murmur GI/Abdominal exam: PRESENT: normal bowel sounds, soft. ABSENT: distended, guarding, mass, organolmegaly, rebound, tenderness Extremities exam: ABSENT: calf tenderness, clubbing, pedal edema Neurological exam: PRESENT: alert, awake, oriented to person, oriented to place , oriented to time, oriented to situation, CN II-XII grossly intact. ABSENT: motor sensory deficit Psychiatric exam: PRESENT: appropriate affect Skin exam: PRESENT: dry, intact, warm. ABSENT: cyanosis, rash Results Laboratory Results: 01/02/17 06:03 01/02/17 06:03 01/02/17 01/02/17 06:03 06:03 WBC 12.6 H RBC 3.49 L Hgb 10.3 L Hct 31.4 L MCV 90 MCH 29.4 MCHC 32.8 RDW 15.4 H Plt Count 117 L Seg Neutrophils % Not Reportable Lymphocytes % Not Reportable Monocytes % Not Reportable Eosinophils % Not Reportable Basophils % Not Reportable Absolute Neutrophils Not Reportable Absolute Lymphocytes Not Reportable Absolute Monocytes Not Reportable Absolute Eosinophils Not Reportable Absolute Basophils Not Reportable Sodium 141.0 Potassium 4.2 Chloride 104 Carbon Dioxide 29 Anion Gap 8 BUN 10 Creatinine 0.54 Est GFR ( Amer) > 60 Est GFR (Non-Af Amer) > 60 Glucose 126 H Calcium 8.9 Impressions: Chest X-Ray 12/31/16 11:05 IMPRESSION: Advanced obstructive disease, with enlarged airspaces, hyperinflation and flattening of the hemidiaphragms. No acute infiltrates. No pleural effusion. No pneumothorax. Qualifiers PATEINT BEING DISCHARGED WITH ANY OF THE FOLLOWING DIAGNOSIS?: No Plan Discharge Plan: Patient is discharged home in stable condition. Time Spent: Greater than 30 Minutes
== END 2017-01-02 11:00 | disposition home or self-care (01) | DRG 192 ==
LOC: ER 10:42 → EH 18:40 → 2N 01-01 02:13
PROVIDERS: ADMIT Internal Medicine; ATTEND Internal Medicine
PROC: 3E0F73Z Introduction of Anti-inflammatory into Respiratory Tract, Via Natural or Artificial Opening (ICD-10-PCS; principal; 2016-12-31)
DX: J44.1 Chronic obstructive pulmonary disease with (acute) exacerbation (principal); E88.01 Alpha-1-antitrypsin deficiency; R19.7 Diarrhea, unspecified; I10 Essential (primary) hypertension; J44.0 Chronic obstructive pulmonary disease with (acute) lower respiratory infection; J20.9 Acute bronchitis, unspecified; G43.909 Migraine, unspecified, not intractable, without status migrainosus; E78.5 Hyperlipidemia, unspecified; K21.9 Gastro-esophageal reflux disease without esophagitis; Z87.891 Personal history of nicotine dependence; Z99.81 Dependence on supplemental oxygen; Z79.899 Other long term (current) drug therapy; Z90.710 Acquired absence of both cervix and uterus; Z79.82 Long term (current) use of aspirin; Z79.51 Long term (current) use of inhaled steroids; Z88.2 Allergy status to sulfonamides; Z88.4 Allergy status to anesthetic agent; Z88.8 Allergy status to other drugs, medicaments and biological substances; Z82.49 Family history of ischemic heart disease and other diseases of the circulatory system
CPT/HCPCS: 36415; 71020; 80048; 80053; 82550; 82553; 83605; 84484; 85025; 85027; 87040; 87070; 87205; 87804; 93005; 93010; 94640; 96365; 96375; 99285; J1650; J1956; J2405; J2543; J2920; J2930; J3490; J7030; J7620

== ENCOUNTER 2017-03-07 11:20 | Emergency (ER) | payer MEDICARE, MEDICAID ==
[2017-03-07] MEDS ORDERED: IPRATROPIUM/ALBUTEROL 0.5-2.5 MG/3 ML AMPUL NEB ONE (11:57)
[2017-03-07] MEDS ORDERED: METHYLPREDNISOLONE INJ 125 MG/2 ML SDV IV ONE (11:57)
[2017-03-07] MEDS: ALBUTEROL SULFATE 0.083% NEB 2.5 MG/3 ML AMPUL NEB SCH ×2 (12:45→13:04)
[2017-03-07 12:53] LABS: ABSOLUTE BASOPHILS # (AUTO) 0.1 10^3/uL (0.0-0.2); ABSOLUTE EOSINOPHILS # (AUTO) 0.1 10^3/uL (0.0-0.6); ABSOLUTE LYMPHOCYTES (AUTO) 0.8 10^3/uL (0.5-4.7); ABSOLUTE MONOCYTES (AUTO) 0.4 10^3/uL (0.1-1.4); ABSOLUTE NEUT (AUTO) 8.5 10^3/uL (1.7-8.2); BASOPHILS % (AUTO) 0.7 % (0-2); EOSINOPHILS % (AUTO) 0.6 % (0-6); HEMATOCRIT 35.6 % (36.0-47.0); HEMOGLOBIN 12.2 g/dL (12.0-15.5); LYMPHOCYTES % (AUTO) 8.1 % (13-45); MEAN CORPUSCULAR HEMOGLOBIN 30.4 pg (27.0-33.4); MEAN CORPUSCULAR HGB CONC 34.2 g/dL (32.0-36.0); MEAN CORPUSCULAR VOLUME 89 fl (80-97); MONOCYTES % (AUTO) 4.5 % (3-13); RED BLOOD COUNT 4.01 10^6/uL (3.72-5.28); RED CELL DISTRIBUTION WIDTH 14.4 % (11.5-14.0); SEGMENTED NEUTROPHILS % (AUTO) 86.1 % (42-78); WHITE BLOOD COUNT 9.9 10^3/uL (4.0-10.5)
[2017-03-07 13:10] LABS: ALANINE AMINOTRANSFERASE 29 U/L (9-52); ALBUMIN 3.9 g/dL (3.5-5.0); ALKALINE PHOSPHATASE 84 U/L (38-126); ASPARTATE AMINO TRANSFERASE 16 U/L (14-36); BILIRUBIN,DIRECT 0.2 mg/dL (0.0-0.4); BILIRUBIN,TOTAL 0.5 mg/dL (0.2-1.3); BLOOD UREA NITROGEN 4 mg/dL (7-20); CALCIUM 8.9 mg/dL (8.4-10.2); CHLORIDE 94 mmol/L (98-107); CREATININE RESULT 0.49 mg/dL (0.52-1.25); GLUCOSE 98 mg/dL (75-110); POTASSIUM 4.2 mmol/L (3.6-5.0); SODIUM 144.3 mmol/L (137-145); TOTAL PROTEIN 6.3 g/dL (6.3-8.2)
[2017-03-07 13:22] LABS: ANION GAP 9 (5-19)
[2017-03-07 13:24] LABS: CARBON DIOXIDE 41 mmol/L (22-30)
--- NOTE | 2017-03-07 13:25 | ER Document Report ---
ED Respiratory Problem - General Mode of Arrival: Ambulatory Information source: Patient TRAVEL OUTSIDE OF THE [place] IN LAST 30 DAYS: No - HPI Patient complains to provider of: Short of breath Associated symptoms: Other - See above <DIANE LINDSEY - Last Filed: 03/07/17 14:11> <NATACHA GONSALVES - Last Filed: 03/07/17 15:43> - General Chief Complaint: Shortness Of Breath Stated Complaint: DIFFICULTY BREATHING Time Seen by Provider: 03/07/17 11:57 Notes: Patient is a 56 year old female, with a past medical history including COPD and pneumonia, who presents to the emergency department complaining of shortness of breath. Patient states that she is on 3L of home air and was on steroids and antibiotics 2 weeks ago after an ER visit. Patient states she uses a nebulizer at home along with albuterol and Ipratropium at home. Patient also complains of cough. PCP: Dr. Petar Tuttle (DIANE LINDSEY) - Related Data Allergies/Adverse Reactions: doxepin [Doxepin] Allergy (Verified 03/07/17 11:44) Shortness of Breath, Swelling etodolac [Etodolac] Allergy (Verified 03/07/17 11:44) loratadine [Loratadine] Allergy (Verified 03/07/17 11:44) Shortness of Breath, Swelling meloxicam [Meloxicam] Allergy (Verified 03/07/17 11:44) Sulfa (Sulfonamide Antibiotics) Allergy (Verified 03/07/17 11:44) Shortness of Breath, Swelling Past Medical History - General Information source: Patient - Social History Smoking Status: Current Every Day Smoker Chew tobacco use (# tins/day): No Frequency of alcohol use: None Drug Abuse: None Family History: Reviewed & Not Pertinent, Hyperlipidemia, Hypertension Patient has suicidal ideation: No Patient has homicidal ideation: No - Past Medical History Cardiac Medical History: Reports: Hx Hypertension Pulmonary Medical History: Reports: Hx Asthma, Hx Bronchitis, Hx COPD - O2 dependent, 3 L nasal cannula [id number] Deficiency, Hx Pneumonia - Recurrent pseudomonal pneumonia Neurological Medical History: Reports: Hx Migraine GI Medical History: Reports: Hx Gastroesophageal Reflux Disease Traumatic Medical History: Reports: Hx Pneumothorax - x4 R lung, 2010 when the patient had a right lung bx required a chest tube Past Surgical History: Reports: Hx Gynecologic Surgery, Hx Hysterectomy, Hx Tonsillectomy, Hx Tubal Ligation - Immunizations Hx Diphtheria, Pertussis, Tetanus Vaccination: Yes Hx Pneumococcal Vaccination: 04/25/09 <DIANE LINDSEY - Last Filed: 03/07/17 14:11> Review of Systems - Review of Systems Constitutional: No symptoms reported EENT: No symptoms reported Cardiovascular: No symptoms reported Respiratory: See HPI, Cough, Short of breath Gastrointestinal: No symptoms reported Genitourinary: No symptoms reported Female Genitourinary: No symptoms reported Musculoskeletal: No symptoms reported Skin: No symptoms reported Hematologic/Lymphatic: No symptoms reported Neurological/Psychological: No symptoms reported -: Yes All other systems reviewed and negative <DIANE LINDSEY - Last Filed: 03/07/17 14:11> Physical Exam - Vital signs Interpretation: Normal - General General appearance: Appears well, Alert - HEENT Head: Normocephalic, Atraumatic - Respiratory Respiratory status: No respiratory distress Chest status: Nontender Breath sounds: Normal Chest palpation: Normal - Cardiovascular Rhythm: Regular Heart sounds: Normal auscultation Murmur: No - Back Back: Normal, Nontender - Extremities General upper extremity: Normal inspection General lower extremity: Normal inspection - Neurological Neuro grossly intact: Yes Cognition: Normal Orientation: AAOx4 Niall Coma Scale Eye Opening: Spontaneous [place] Coma Scale Verbal: Oriented [place] Coma Scale Motor: Obeys Commands Niall Coma Scale Total: 15 Speech: Normal - Psychological Associated symptoms: Normal affect, Normal mood - Skin Skin Temperature: Warm Skin Moisture: Dry Skin Color: Normal <DIANE LINDSEY - Last Filed: 03/07/17 14:11> Course - Laboratory Result Diagrams: 03/07/17 12:30 03/07/17 12:30 <DIANE LINDSEY - Last Filed: 03/07/17 14:11> - Laboratory Result Diagrams: 03/07/17 12:30 03/07/17 12:30 <NATACHA GONSALVES - Last Filed: 03/07/17 15:43> - Re-evaluation Re-evalutation: 03/07/17 14:41 Patient presents emergency room chief complaint difficulty breathing coughing headache. Patient has a history of COPD continues to smoke and is on 3 L of oxygen at home. Her primary care physician Dr. Lizeth cheung. She is not currently on steroids on examination she is well-appearing nontoxic with no acute respiratory distress O2 sat was 89-92% on 3 L which she chronically takes at home. Respiratory rate was slightly increased in tachycardic after albuterol treatments. EKG mild tachycardia but no acute ST segment elevations or depression chest x-ray negative for pneumonia. Patient was given Solu- Medrol albuterol and Atrovent with significant improvement she has no conversational dyspnea she is tolerating p.o. fluids will discharge on prednisone by primary care physician in 1-2 days and discussed reasons for ED return (NATACHA GONSALVES) - Vital Signs Vital signs: Temp Pulse Resp BP Pulse Ox 98.4 F 114 H 24 H 115/64 89 L 03/07/17 11:45 03/07/17 11:45 03/07/17 11:45 03/07/17 11:45 03/07/17 11:45 - Laboratory Laboratory results interpreted by me: 03/07/17 03/07/17 12:30 12:30 Hct 35.6 L RDW 14.4 H Plt Count 146 L Seg Neutrophils % 86.1 H Lymphocytes % 8.1 L Absolute Neutrophils 8.5 H Chloride 94 L Carbon Dioxide 41 H* BUN 4 L Creatinine 0.49 L - EKG Interpretation by Me Additional EKG results interpreted by me: 03/07/17 14:42 EKG interpreted by myself as revealing a sinus tachycardia 107 bpm with a right bundle branch block no acute ST segment elevation or depression (NATACHA GONSALVES) Discharge <DIANE LNIDSEY - Last Filed: 03/07/17 14:11> <NATACHA GONSALVES - Last Filed: 03/07/17 15:43> - Discharge Clinical Impression: COPD exacerbation Condition: Stable Disposition: HOME, SELF-CARE Additional Instructions: Chronic Obstructive Lung Disease You have chronic obstructive lung disease (COPD). The symptoms come from emphysema (damage to small airways, with trapping of air in large sacks in the lung) and chronic bronchitis (repeated infection and damage to larger airways). The cause is almost always cigarette smoking, although dust exposure, asthma, and infections contribute. You should avoid fumes, dust, and smoke (especially tobacco smoke). Your condition will flare from time to time. There is no cure, but the symptoms can be treated. Bronchodilators (asthma medicine) are often helpful. Antibiotics help when infection is present. When shortness of breath is severe, we may prescribe cortisone medication. If medicine doesn't help enough, we can arrange for you to have an oxygen tank at home. Notify your doctor at once if sputum becomes thick, foul, or bloody, if you develop a fever or chest pain, or if your shortness of breath worsens. follow up with your primary care physician in 2-3 days return for increasing worsening any Prescriptions: Prednisone [Deltasone 20 mg Tablet] 3 tab PO DAILY 5 Days Forms: Smoking Cessation Education Scribe Attestation: 03/07/17 14:45 I personally performed the services described in the documentation, reviewed and edited the documentation which was dictated to my scribe in my presence, and it accurately records my words and actions. (NATACHA GONSALVES) Scribe Documentation - Scribe Written by Corinne:: corinne Abdullahi, 03/07/17, [id number] acting as scribe for :: Bertrand <DIANE LINDSEY - Last Filed: 03/07/17 14:11>
[2017-03-07 15:48] VITALS: BP 118/77
--- NOTE | 2017-03-07 17:48 | EKG REPORT ---
SEVERITY:- ABNORMAL ECG - SINUS TACHYCARDIA RIGHT BUNDLE BRANCH BLOCK PROBABLE INFERIOR INFARCT, AGE INDETERMINATE : Confirmed by: Shana Greene MD 07-Mar-2017 17:47:26
== END 2017-03-07 15:45 | disposition home or self-care (01) ==
LOC: ER 11:20
DX: J44.1 Chronic obstructive pulmonary disease with (acute) exacerbation (principal); E88.01 Alpha-1-antitrypsin deficiency; Z99.81 Dependence on supplemental oxygen; R06.02 Shortness of breath; R05 Cough; F17.200 Nicotine dependence, unspecified, uncomplicated; R51 Headache; I45.10 Unspecified right bundle-branch block; I10 Essential (primary) hypertension; Z87.01 Personal history of pneumonia (recurrent); Z79.899 Other long term (current) drug therapy; Z88.8 Allergy status to other drugs, medicaments and biological substances; Z88.2 Allergy status to sulfonamides
CPT/HCPCS: 93005; 94640 ×2; 99285; 96374; 36415; 85025; 80053; 71010; 93010; J2930; A9270 ×2; J7620

== ENCOUNTER 2017-03-08 21:55 | Inpatient (IN) | payer MEDICARE, MEDICAID ==
[2017-03-08] MEDS ORDERED: IPRATROPIUM/ALBUTEROL 0.5-2.5 MG/3 ML AMPUL NEB ONE (23:19)
--- NOTE | 2017-03-08 23:21 | ER Document Report ---
ED General - General Chief Complaint: Shortness Of Breath Stated Complaint: DIFFICULTY BREATHING Time Seen by Provider: 03/08/17 23:13 Notes: Patient is a 56-year-old female presents with complaint of difficulty breathing. She was seen here yesterday and placed on steroids and breathing treatment. She says she is gotten gradually worse and now is having 3 difficulty breathing. She has a history of COPD. She still smokes. She has a history of recurrent pneumonia. Chest x-ray was negative for pneumonia yesterday. No fevers. No vomiting. No other complaints at this time. She does wear 3 L of oxygen at home via nasal cannula. She wears BiPAP at night. TRAVEL OUTSIDE OF THE [place] IN LAST 30 DAYS: No - Related Data Allergies/Adverse Reactions: doxepin [Doxepin] Allergy (Verified 03/07/17 11:44) Shortness of Breath, Swelling etodolac [Etodolac] Allergy (Verified 03/07/17 11:44) loratadine [Loratadine] Allergy (Verified 03/07/17 11:44) Shortness of Breath, Swelling meloxicam [Meloxicam] Allergy (Verified 03/07/17 11:44) Sulfa (Sulfonamide Antibiotics) Allergy (Verified 03/07/17 11:44) Shortness of Breath, Swelling Home Medications: Current Home Medications Prednisone [Deltasone 20 mg Tablet] 1 tab PO DAILY 03/09/17 [History] Past Medical History - Social History Smoking Status: Current Every Day Smoker Frequency of alcohol use: None Drug Abuse: None Family History: Reviewed & Not Pertinent, Hyperlipidemia, Hypertension - Past Medical History Cardiac Medical History: Reports: Hx Hypertension Pulmonary Medical History: Reports: Hx Asthma, Hx Bronchitis, Hx COPD - O2 dependent, 3 L nasal cannula [id number] Deficiency, Hx Pneumonia - Recurrent pseudomonal pneumonia Neurological Medical History: Reports: Hx Migraine Endocrine Medical History: Denies: Hx Diabetes Mellitus Type 1, Hx Diabetes Mellitus Type 2 Renal/ Medical History: Denies: Hx Peritoneal Dialysis GI Medical History: Reports: Hx Gastroesophageal Reflux Disease Traumatic Medical History: Reports: Hx Pneumothorax - x4 R lung, 2010 when the patient had a right lung bx required a chest tube Past Surgical History: Reports: Hx Gynecologic Surgery, Hx Hysterectomy, Hx Tonsillectomy, Hx Tubal Ligation - Immunizations Hx Diphtheria, Pertussis, Tetanus Vaccination: Yes Hx Pneumococcal Vaccination: 04/25/09 Review of Systems - Review of Systems Notes: My Normal Review Basic REVIEW OF SYSTEMS: CONSTITUTIONAL : Denies fever, chills, or sweats. Denies recent illness. EENT: Denies eye, ear, throat, or mouth pain or symptoms. Denies nasal or sinus congestion. CARDIOVASCULAR: Denies chest pain. RESPIRATORY: Difficulty breathing. Wheezing. GASTROINTESTINAL: Denies abdominal pain. Denies nausea, vomiting, or diarrhea. Denies constipation. Last BM: GENITOURINARY: Denies difficulty urinating, painful urination, burning, frequency, or blood in urine. MUSCULOSKELETAL: Denies neck or back pain or joint pain or swelling. SKIN: Denies rash or skin lesions. NEUROLOGICAL: Denies altered mental status or loss of consciousness. Denies headache. Denies weakness or paralysis or loss of use of either side. Denies problems with gait or speech. Denies sensory or motor loss. ALL OTHER SYSTEMS REVIEWED AND NEGATIVE. Physical Exam - Vital signs Vitals: Temp Pulse BP Pulse Ox 98.0 F 113 H 104/74 96 03/08/17 22:48 03/08/17 22:48 03/08/17 22:48 03/08/17 22:48 - Notes Notes: General Appearance: Well nourished, alert, cooperative, moderate acute distress , no obvious discomfort. Vitals: reviewed, See vital signs table. Head: no swelling or tenderness to the head Eyes: PERRL, EOMI, Conjuctiva clear Mouth: No decreasd moisture Neck: Supple, no neck tenderness, No thyromegaly Lungs: Diffuse wheezing. Poor air exchange bilaterally. Heart: Tachycardic rate, Regular rythm, No murmur, no rub Abdomen: Normal BS, soft, No rigidity, No abdominal tenderness, No guarding, no rebound, no abdominal masses, no organomegaly Extremities: strength 5/5 in all extremities, good pulses in all extremities, no swelling or tenderness in the extremities, no edema. Skin: warm, dry, appropriate color, no rash Neuro: speech clear, oriented x 3, normal affect, responds appropriately to questions. Course - Re-evaluation Re-evalutation: 03/09/17 00:17 Patient still has a lot of wheezing but she is moving some air. She looks much improved on the BiPAP is not working or is hard to breathe. She says she is feeling improved. She is receiving magnesium at this time. I will give her another albuterol treatment. 03/09/17 03:41 Repeat blood gas came back with her carbon dioxide elevating. I did talk to the patient and her about performing an intubation. She has never need to be on a ventilator before. I explained to her that this would probably be the most appropriate course of action. Patient is very reluctant to be intubated. She requests that we continue with the BiPAP for a little bit longer. I informed her that we would adjust the settings on the BiPAP and recheck the blood gas in 30 minutes. If her carbon dioxide continues to increase not improved then we should really bad at that time. Patient understands this. - Vital Signs Vital signs: Temp Pulse Resp BP Pulse Ox 98.0 F 113 H 35 H 114/70 93 03/08/17 22:48 03/08/17 22:48 03/09/17 04:15 03/09/17 04:00 03/09/17 04:15 - Laboratory Result Diagrams: 03/08/17 23:50 03/08/17 23:50 Laboratory results interpreted by me: 03/08/17 03/08/17 03/08/17 23:50 23:50 23:50 WBC 13.4 H RDW 14.4 H Plt Count 124 L Seg Neutrophils % 88.4 H Lymphocytes % 5.8 L Absolute Neutrophils 11.9 H VBG pCO2 83.1 H* VBG HCO3 40.1 H Chloride 95 L Carbon Dioxide 38 H Creatinine 0.45 L Glucose 113 H - EKG Interpretation by Me Additional EKG results interpreted by me: 03/08/17 23:54 Reviewed and interpreted by me. EKG shows sinus tachycardia with a rate of [address] segment elevation or depression. No ischemic T-wave inversions. HI interval, QRS duration, QTc intervals are within normal range. Old EKG for comparison is from March 07, 2017. - Transfer of Care Notes: 03/09/17 05:50 Patient did initially refusing the patient. She did want to try BiPAP longer. Repeat gas does show some improvement. Patient is admitted to the hospitalist and he is now managing her respiratory failure and COPD exacerbation. Dictation of this chart was performed using voice recognition software; therefore, there may be some unintended grammatical errors. Critical Care Note - Critical Care Note Total time excluding time spent on procedures (mins): 40 Comments: Critical care time spent on this patient not including time on procedures approximately 40 minutes due to frequent re-evaluations, management of respiratory distress failure due to COPD exacerbation. Discharge - Discharge Clinical Impression: COPD with acute exacerbation Disposition: ADMITTED INPATIENT Admitting Provider: Hospitalist Unit Admitted: [facility]
[2017-03-08] MEDS: MAGNESIUM SULFATE/D5W 100 ML IV SCH (23:45)
[2017-03-09 00:03] LABS: ABSOLUTE LYMPHOCYTES (AUTO) 0.8 10^3/uL (0.5-4.7); ABSOLUTE MONOCYTES (AUTO) 0.7 10^3/uL (0.1-1.4); ABSOLUTE NEUT (AUTO) 11.9 10^3/uL (1.7-8.2); BASOPHILS % (AUTO) 0.2 % (0-2); EOSINOPHILS % (AUTO) 0.1 % (0-6); HEMATOCRIT 36.7 % (36.0-47.0); HEMOGLOBIN 12.3 g/dL (12.0-15.5); HGB HCT DIFFERENCE 0.2; LYMPHOCYTES % (AUTO) 5.8 % (13-45); MEAN CORPUSCULAR HGB CONC 33.5 g/dL (32.0-36.0); MEAN CORPUSCULAR VOLUME 90 fl (80-97); MONOCYTES % (AUTO) 5.5 % (3-13); RED CELL DISTRIBUTION WIDTH 14.4 % (11.5-14.0); SEGMENTED NEUTROPHILS % (AUTO) 88.4 % (42-78); WHITE BLOOD COUNT 13.4 10^3/uL (4.0-10.5)
[2017-03-09 00:05] LABS: VENOUS BLOOD BASE EXCESS 9.8 mmol/L; VENOUS BLOOD HCO3 40.1 mmol/L (20-32); VENOUS BLOOD PH 7.3 (7.30-7.42)
[2017-03-09 00:09] LABS: VENOUS BLOOD PCO2 83.1 mmHg (35-63)
[2017-03-09] MEDS ORDERED: ALBUTEROL SULFATE 0.083% NEB 2.5 MG/3 ML AMPUL NEB ONE (00:18)
[2017-03-09 00:22] LABS: ALANINE AMINOTRANSFERASE 31 U/L (9-52); ALBUMIN 3.9 g/dL (3.5-5.0); ALKALINE PHOSPHATASE 85 U/L (38-126); ANION GAP 9 (5-19); ASPARTATE AMINO TRANSFERASE 15 U/L (14-36); BILIRUBIN,DIRECT 0.3 mg/dL (0.0-0.4); BILIRUBIN,TOTAL 0.7 mg/dL (0.2-1.3); BLOOD UREA NITROGEN 16 mg/dL (7-20); CALCIUM 9.3 mg/dL (8.4-10.2); CARBON DIOXIDE 38 mmol/L (22-30); CHLORIDE 95 mmol/L (98-107); CREATININE RESULT 0.45 mg/dL (0.52-1.25); GLUCOSE 113 mg/dL (75-110); SODIUM 142.1 mmol/L (137-145); TOTAL PROTEIN 6.3 g/dL (6.3-8.2)
[2017-03-09] MEDS: MAGNESIUM SULFATE/D5W 100 ML IV SCH (01:06)
[2017-03-09] MEDS ORDERED: IPRATROPIUM/ALBUTEROL 0.5-2.5 MG/3 ML AMPUL NEB ONE ×2 (02:08→04:33)
[2017-03-09] MEDS ORDERED: METHYLPREDNISOLONE INJ 125 MG/2 ML SDV IV ONE (02:08)
[2017-03-09 03:13] LABS: VENOUS BLOOD HCO3 44.5 mmol/L (20-32); VENOUS BLOOD PH 7.25 (7.30-7.42)
[2017-03-09 03:30] LABS: VENOUS BLOOD PCO2 103.6 mmHg (35-63)
[2017-03-09] MEDS ORDERED: ETOMIDATE INJ/PF 20 MG/10 ML SDV IV ONE (03:40)
[2017-03-09 04:22] LABS: VENOUS BLOOD HCO3 43.4 mmol/L (20-32); VENOUS BLOOD PH 7.29 (7.30-7.42)
[2017-03-09 04:23] LABS: VENOUS BLOOD PCO2 92.2 mmHg (35-63)
[2017-03-09] MEDS ORDERED: INSULIN LISPRO 100 UNIT/ML 3 ML VIAL SUBCUT PRN (04:55)
[2017-03-09] MEDS ORDERED: GLUCAGON,HUMAN RECOMB 1 MG INJ IM PRN (04:55)
[2017-03-09] MEDS ORDERED: DEXTROSE 50%-WATER 25 GM/50 ML DISP.SYRIN IV PRN ×2 (04:55)
[2017-03-09] MEDS ORDERED: DEXTROSE 40% GEL 15 GM TUBE PO PRN ×2 (04:55)
[2017-03-09] MEDS ORDERED: NORMAL SALINE 1000 ML 1,000 ML IV PRN (04:55)
[2017-03-09] MEDS ORDERED: ALBUTEROL SULFATE 0.083% NEB 2.5 MG/3 ML AMPUL NEB PRN (04:56)
[2017-03-09] MEDS ORDERED: NICOTINE 7 MG/24 HR PATCH.TD24 TD PRN (04:56)
[2017-03-09] MEDS ORDERED: GUAIFENESIN SYRP 200 MG/10 ML UDC PO PRN (04:56)
[2017-03-09] MEDS ORDERED: CEFEPIME INJ 1 GM VIAL IV PRN (05:20)
[2017-03-09] MEDS ORDERED: AZITHROMYCIN INJ 500 MG VIAL IV PRN (05:21)
--- NOTE | 2017-03-09 05:23 | PDOC H&P ---
History of Present Illness Admission Date/PCP: 03/09/17 02:48 PCP Petar [facility] Patient complains of: difficulty breathing History of Present Illness: AUDIE KIMBLE is a 56 year old female with underlying 24/7 home O2 dependent COPD, along with nightly 12/6 home BiPAP, and underlying alpha-1 antitrypsin deficiency, still smoking, 2 cigarettes a day, who presents to the emergency room for evaluation of approximately a 48 hour or so history of progressive worsening of her chronic shortness of breath. Patient has been discussed with emergency room physician who evaluated the patient. Was reportedly seen in the emergency room approximately 24 hours ago, and was discharged home with steroids. However, despite this, and increased use of her home medications, breathing has continued to worsen. Was in significant respiratory distress upon arrival, but has improved with breathing treatments, magnesium sulfate, and BiPAP. Has had nausea, but no vomiting. No fever or chills. No chest or abdominal pain. Cough has been productive of green sputum. Second venous blood gas revealed increase in her PCO2. However, with some adjustments of her mask, PCO2 has decreased slightly. Patient has never been intubated for respiratory difficulty before, but is willing to undergo same if necessary. is present at her side, with her approval, and concurs. Grandson with an upper respiratory tract infection. Hospitalized on our service December 31- of this year with final diagnoses including COPD with acute respiratory distress. History and physical and discharge summary have been reviewed. Also admitted to our service October 20, 2015, with diagnoses including pneumonia , and COPD exacerbation. History and physical has been reviewed. Laboratory results are listed in [employer] and are reviewed. X-ray summary results are listed below, with full report(s) reviewed. . EKG reviewed and compared to prior tracing from November 15 of this year. Social history/personal habits: . 2 children. No alcohol or illicit drug use. Tobacco use as noted above. Allergies/adverse reactions are listed in [employer] and are reviewed. Home medications initially autopopulated into [employer] may not accurately reflect patient's true medications, dosages, and/or frequencies. 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 Unfortunately, patient not certain of all medications/dosages/frequencies. REVIEW OF SYSTEMS: Constitutional: No fever or chills. Eyes: Wears glasses. ENT: Occasional mild dysphagia without aspiration. No hearing problems. Pulmonary: See history and present illness. Cardiovascular: No current complaints, including chest pain. Gastrointestinal: See history and present illness. Skin: No current complaints, including rashes. Hematologic: Easy bruising. Neurologic: No current complaints, including numbness or tingling. Musculoskeletal:Joint pain from arthritis. Psychiatric: Denies anxiety or depression. Endocrine: No current complaints, including polyuria. Genitourinary: No current complaints, including dysuria. PHYSICAL EXAMINATION: 5 feet tall. 54 kg. BMI 23.3 kg/m. Blood pressure 114/70. Pulse 121 and regular. 94% saturation on BiPAP 12/6, 30% FiO2. Respirations are 28, with patient making occasional mild use of her accessory respiratory muscles. Temperature 98.0. Thin chronically ill-appearing female who appears a number of years older than her stated age. Pleasant awake alert and cooperative. Somewhat anxious, although no car agitation. Appears to feel a bit under the weather, so to speak. Female emergency room nurse Margareth is present. Skin is warm and dry. No grossly obvious evidence of rash in areas of skin examined. No subcutaneous nodules palpated. ENT: Hearing grossly normal to normal conversation. Tongue midline on protrusion pink and slightly tacky. Eyes: No scleral icterus. Pupils equal and reactive to light at 4 mm. [place] conjunctivae. Neck is supple and nontender to gentle active range of motion and palpation. Midline trachea. No palpable thyroid nodule mass enlargement or tenderness. Lymphatic: No palpable cervical or clavicular nodes. Neck and lymphatic exams limited by patient body habitus. Psychiatric: Reasonable insight into acute and chronic medical issues. Oriented to time location and why here. Lungs: Auscultation reveals equal breath sounds bilaterally. Mild expiratory wheezing diffusely bilaterally. Occasional somewhat coarse congested cough. Intermittent mild use of her accessory respiratory muscles. Cardiovascular: Heart regular rate and rhythm, without gallop murmur or rub. No carotid or abdominal aortic bruits. No ankle or pedal edema. Faintly palpable dorsalis pedis pulses. Abdomen:soft slightly distended nontender with positive bowel sounds. Unable to adequately evaluate abdomen for masses or organomegaly due to distention. Extremities: Feet are warm and dry. No calf tenderness to compression. No grossly obvious visual evidence of calf swelling. Gentle manipulation of lower extremities fails to reveal any obvious evidence of injury or instability to knees hips or ankles. Neurologic: Moves upper extremities grossly normally. Patellar reflexes absent. Absent Babinski. Light touch is intact at feet. Dorsiflexion and plantarflexion of feet 5 / 5 and symmetric. Past Medical History Cardiac Medical History: Reports: Other - Occasional slightly irregular heartbeat, without formal diagnosis of fibrillation or flutter Denies: Congestive Heart Failure, DVT, Myocardial Infarction, Hyperlipidema, Pulmonary Embolism Pulmonary Medical History: Reports: Asthma, Bronchitis, Chronic Obstructive Pulmonary Disease (COPD) - O2 dependent, 3 L nasal cannula, Pneumonia - Recurrent pseudomonal pneumonia, Other - [id number] Deficiency EENT Medical History: Reports: Eyes - Glasses, Throat - Occasional mild dysphagia without aspiration. Denies: Ears Neurological Medical History: Reports: Migraine Denies: Hemorrhagic CVA, Ischemic CVA, Seizures Endocrine Medical History: Denies: Diabetes Mellitus Type 1, Diabetes Mellitus Type 2, Hyperthyroidism, Hypothyroidism Renal/ Medical History: Reports: None GI Medical History: Reports: Gastroesophageal Reflux Disease Denies: Cirrhosis, Hepatitis, Peptic Ulcer Disease Musculoskeltal Medical History: Reports: Arthritis Skin Medical History: Reports: None Psychiatric Medical History: Reports: Tobacco Dependency Denies: Alcohol Dependency, Depression, General Anxiety Disorder, Substance Abuse Traumatic Medical History: Reports: Pneumothorax - x4 R lung, 2010 when the patient had a right lung bx required a chest tube Hematology: Reports: Other - Easy bruising Infectious Medical History: Denies: Hepatitis B, Hepatitis C Past Surgical History Past Surgical History: Reports: Hysterectomy, Tonsillectomy, Tubal Ligation Social History Information Source: Patient, Emergency Med Personnel, [facility] Records Lives with: Spouse/Significant other Smoking Status: Current Every Day Smoker Frequency of Alcohol Use: None Hx Recreational Drug Use: No Drugs: None Hx Prescription Drug Abuse: No - Advance Directive Resuscitation Status: Full Code Surrogate healthcare decision maker:: Family History Family History: Reviewed & Not Pertinent, Hyperlipidemia, Hypertension Parental Family History Reviewed: Yes - Father ; alpha-1 antitrypsin deficiency. Mother hypertension. Children Family History Reviewed: Yes - Daughter alpha-1 antitrypsin carrier. Sibling(s) Family History Reviewed.: Yes - Brother with asthma and COPD. Medication/Allergy Home Medications: Levalbuterol Tartrate [Xopenex Hfa] 2 puff IH Q4HP PRN 03/09/17 RX: Albuterol Sulfate [Ventolin 0.083% Neb 2.5 mg/3 mL Ampul] 2.5 mg PO Q4HP PRN 03/09/17 RX: Bisoprolol Fumarate [Zebeta 5 mg Tablet] 2.5 mg PO DAILY 03/09/17 RX: Budesonide/Formoterol Fumarate [Symbicort HFA 160-4.5 mcg Inhaler 6 gm] 1 puff IH Q12 03/09/17 RX: Fluticasone Propionate [Flonase Nasal [place] 50 Mcg/[place] 16 gm] 1 spray NASL Q12 03/09/17 RX: Ipratropium [place] [Atrovent 0.02% Neb 0.5 mg/2.5 ml Ampul] 0.5 mg NEB Q4HP PRN 03/09/17 RX: Montelukast Sodium [Singulair 10 mg Tablet] 10 mg PO DAILY 03/09/17 Roflumilast [Daliresp 500 mcg Tablet] 500 mcg PO DAILY 03/09/17 Tiotropium [place] [Spiriva Handihaler 5 Cap/Kit (18 Mcg/Cap)] 1 puff IN DAILY 03/09/17 Ropinirole HCl [Ropinirole HCl] 2 tab PO QHS 03/11/17 Allergies/Adverse Reactions: doxepin [Doxepin] Allergy (Verified 03/07/17 11:44) Shortness of Breath, Swelling etodolac [Etodolac] Allergy (Verified 03/07/17 11:44) loratadine [Loratadine] Allergy (Verified 03/07/17 11:44) Shortness of Breath, Swelling meloxicam [Meloxicam] Allergy (Verified 03/07/17 11:44) Sulfa (Sulfonamide Antibiotics) Allergy (Verified 03/07/17 11:44) Shortness of Breath, Swelling Physical Exam Vital Signs: Temp Pulse Resp BP Pulse Ox 98.0 F 113 H 40 H 114/70 95 03/08/17 22:48 03/08/17 22:48 03/09/17 04:01 03/09/17 04:00 03/09/17 04:01 Results Laboratory Results: 03/09/17 03/09/17 03:00 04:15 VBG pH 7.25 L 7.29 L VBG pCO2 103.6 H* 92.2 H* VBG HCO3 44.5 H 43.4 H VBG Base Excess 13.0 13.0 Impressions: Chest X-Ray 03/08/17 23:19 IMPRESSION: No acute cardiopulmonary findings. Assessment & Plan - Diagnosis (1) Acute and chronic respiratory failure with hypercapnia Is this a current diagnosis for this admission?: YesPlan: Patient will be admitted under COPD exacerbation protocol. Incentive spirometry twice a day. Scheduled DuoNeb's. As needed albuterol nebs. Solu-Medrol. Prevacid for gastritis prophylaxis. Pulmonology consult. Antibiotics will consist of intravenous Zithromax along with cefepime.. I strongly encouraged patient to notify staff should patient feel that breathing is worsening. Patient is a full code. I have strongly encouraged patient not to get out of bed without notifying staff , to avoid a fall with injury. Knee high SCDs for DVT prophylaxis, along with subcutaneous heparin. Impression and plans were discussed with patient and , both of whom concur Time spent in evaluation and management of patient: 68 critical-care minutes. (2) COPD exacerbation Is this a current diagnosis for this admission?: Yes (3) Pfmhz-[id number] deficiency Is this a current diagnosis for this admission?: Yes (4) Tobacco abuse Is this a current diagnosis for this admission?: YesPlan: As needed nicotine patch. - Inpatient Certification Based on my medical assessment, after consideration of the patient's comorbidities, presenting symptoms, or acuity I expect that the services needed warrant INPATIENT care.: Yes I certify that my determination is in accordance with my understanding of Medicare's requirements for reasonable and necessary INPATIENT services [42 CFR 412.3e].: Yes Medical Necessity: Significant Comorbidiites Make Outpatient Treatment Too Risky , Need Close Monitoring Due to Risk of Patient Decompensation, Need For IV Fluids, Need For Continuous Telemetry Monitoring, Need for Nebulizer Therapy and Monitoring of Response, Need for IV Antibiotics, Risk of Diagnosis Which Will Require Inpatient Eval/Care/Monitoring Post Hospital Care: D/C or Transfer Summary
[2017-03-09] MEDS ORDERED: CEFEPIME 1 GM/D5W RTU 1 GM/50 ML RTUPB IV SCH (06:00)
[2017-03-09] MEDS ORDERED: AZITHROMYCIN 500 MG in DEXTROSE 5%-WATER 250 ML IV SCH (06:00)
[2017-03-09 06:18] LABS: HEMATOCRIT 35.3 % (36.0-47.0); HEMOGLOBIN 11.8 g/dL (12.0-15.5); HGB HCT DIFFERENCE 0.1; MEAN CORPUSCULAR HEMOGLOBIN 29.9 pg (27.0-33.4); MEAN CORPUSCULAR HGB CONC 33.3 g/dL (32.0-36.0); MEAN CORPUSCULAR VOLUME 90 fl (80-97); RED BLOOD COUNT 3.93 10^6/uL (3.72-5.28); RED CELL DISTRIBUTION WIDTH 14.4 % (11.5-14.0); WHITE BLOOD COUNT 10.8 10^3/uL (4.0-10.5)
[2017-03-09 06:24] LABS: VENOUS BLOOD BASE EXCESS 8.2 mmol/L; VENOUS BLOOD HCO3 37.9 mmol/L (20-32); VENOUS BLOOD PH 7.28 (7.30-7.42)
[2017-03-09] MEDS: ACETAMINOPHEN 325 MG TABLET PO PRN (06:24)
[2017-03-09 06:27] LABS: VENOUS BLOOD PCO2 82.5 mmHg (35-63)
[2017-03-09 06:29] LABS: ANION GAP 10 (5-19); BLOOD UREA NITROGEN 13 mg/dL (7-20); CALCIUM 8.8 mg/dL (8.4-10.2); CARBON DIOXIDE 39 mmol/L (22-30); CHLORIDE 94 mmol/L (98-107); CREATININE RESULT 0.49 mg/dL (0.52-1.25); GLUCOSE 137 mg/dL (75-110); MAGNESIUM 2.2 mg/dL (1.6-2.3); SODIUM 142.5 mmol/L (137-145)
[2017-03-09 06:57] LABS: BAND NEUTROPHILS % (MANUAL) 5 % (3-5); BASOPHILS % (MANUAL) 0 % (0-2); EOSINOPHILS % (MANUAL) 0 % (0-6); LYMPHOCYTES % (MANUAL) 1 % (13-45); TOTAL CELLS COUNTED 100
[2017-03-09 07:01] LABS: ANISOCYTOSIS SLIGHT; POIKILOCYTOSIS SLIGHT; POLYCHROMASIA SLIGHT
[2017-03-09] MEDS: IPRATROPIUM/ALBUTEROL 0.5-2.5 MG/3 ML AMPUL NEB SCH ×3 (08:21→19:48)
--- NOTE | 2017-03-09 09:00 | EKG REPORT ---
SEVERITY:- OTHERWISE NORMAL ECG - SINUS TACHYCARDIA BORDERLINE RIGHT AXIS DEVIATION : Confirmed by: Anuel Arevalo MD 09-Mar-2017 08:59:36
[2017-03-09] MEDS ORDERED: METHYLPREDNISOLONE INJ 40 MG/1 ML SDV IV SCH (10:00)
[2017-03-09] MEDS ORDERED: METHYLPREDNISOLONE INJ 40 MG/1 ML SDV IV ONE (10:00)
[2017-03-09 10:45] LABS: VENOUS BLOOD BASE EXCESS 12.1 mmol/L; VENOUS BLOOD HCO3 40.6 mmol/L (20-32); VENOUS BLOOD PH 7.35 (7.30-7.42)
[2017-03-09 10:53] LABS: VENOUS BLOOD PCO2 74.9 mmHg (35-63)
--- NOTE | 2017-03-09 10:55 | PROGRESS NOTE E ---
Progress Note NAME: AUDIE KIMBLE : 1960 AGE: 56Y DATE: 03/09/2017 ROOM: 606 SUBJECTIVE: The patient was seen in the presence of Dr. Nagy with pulmonology as well as RT and the patient's primary nurse as well. The patient was found to be in acute distress, significantly tachypneic with work of breathing, and tachycardia. The patient was on BiPAP and adjustments have been made by Dr. Nagy. It was stressed with the patient that if she is intubated, the likelihood of extubation is very low for her given her chronic underlying endstage lung disease. The patient denies any vomiting but does admit to some nausea and it remains. No chest pain. No dizziness. No headaches. The patient has been afebrile. Her blood pressures have been in a good range. The patient does not voice any other concerns at this time. REVIEW OF SYSTEMS: Rest of the review of systems is negative. MEDICATIONS: Have been reviewed. PHYSICAL EXAMINATION: GENERAL: The patient is 56-year-old female who is awake, alert. Oriented to person, place, time, and situation. She is in significant distress. The patient is well developed and appears well nourished, however, significant weight loss compared to previous encounters with the patient. VITAL SIGNS: Temperature 98.8, pulse 112, respirations 30, blood pressure is 116/91, oxygen saturation is 94% on 100% FiO2 of BiPAP. HEENT: Pupils equal, round, reactive to light and accommodation. Conjunctivae are pink. BiPAP mask is in place. There is no JVP. CARDIOVASCULAR: Heart is regular with no murmur or rub. CHEST: The patient does have coarse, brassy breath sounds with wheezes throughout, symmetrical, significantly labored with retractions. ABDOMEN: Soft, nontender, nondistended. BACK: No CVA tenderness or sacral edema. EXTREMITIES: No clubbing, cyanosis, or edema. PSYCHIATRIC: Very pleasant mood and appropriate affect. DIAGNOSTICS: Lab values are as follows: Hematology obtained on 03/09/2017: WBCs are 10.8, hemoglobin is 11.8, hematocrit is 35.5, platelet count is 122,000. VBG obtained on 03/09/2017 reveals pH of 7.28, pCO2 of 82.5, bicarb is 37.9. Chemistry obtained on 03/09/2017: Sodium is 142, potassium 4.0, chloride is 94, carbon dioxide 39, BUN 13, creatinine 0.49, glucose 137, calcium 8.8, magnesium is 2.2, TSH is 0.31. Microbiology: Blood cultures obtained on 03/09/2017 are pending. IMPRESSION AND PLAN: 1. CHRONIC OBSTRUCTIVE PULMONARY DISEASE EXACERBATION DUE TO UNDERLYING ALPHA-1 ANTITRYPSIN DEFICIENCY. The patient is now agreeable to intubation. Have discussed the case with Dr. Nagy. Will adjust BiPAP settings and follow the patient up. For now, will manage symptomatically versus by blood gas given intubation may be a terminal thing for this patient. Will continue steroids and nebulizers and BiPAP support and follow. 2. [id number] HYPOXEMIC AND HYPERCAPNIA RESPIRATORY FAILURE WITH SIGNIFICANT TACHYPNEA. The patient's blood gas is moving in the right direction. The last pCO2 was 82. Will follow up BiPAP setting changes and adjust accordingly. 3. HYPERTENSION. Blood pressures are in a good range. Will continue the patient's home medications. 4. GASTROESOPHAGEAL REFLUX DISEASE. Will continue PPI therapy. 5. DVT PROPHYLAXIS. Will continue subcutaneous heparin. DISPOSITION: The patient is now a FULL CODE. Pending patient's symptomatology and diagnostic findings, will reevaluate as needed. Time spent on this critical care visit including assessment, plan, physical examination, patient education, specialty collaboration, and bedside management is 35 minutes. DICTATING PHYSICIAN: SUDARSHAN HIGGINS NP [id number] PHY#: [id number] ID: [id number] JOB#: [id number] ACCT: [id number] cc: >
[2017-03-09] MEDS: LANSOPRAZOLE 30 MG TAB.RAP.DR PO SCH ×2 (11:23→17:09)
[2017-03-09] MEDS: HEPARIN SOD (PORCINE) 5,000 UNIT/ML 1 ML SYRINGE SUBCUT SCH ×2 (11:24→21:33)
--- NOTE | 2017-03-09 13:58 | Palliative Consultation Report ---
Consultation From:: RAHUL STRONG Consult Reason: alpha one AT - HPI HPI: Appreciate Palliaitve Care consult request. I visited with patient at about 11; 30AM 03/09. She is on Bipap in ICU but is awake and oriented x 3. SHe states she is having less repspiratory distress but still is using accesory muscles to breath. SHe asks to have some food as she is hungry but denies having pain. We have met cheryl and she remembered meeting me. She has no physical complaints or symptoms that I need to address at present. We did talk at length again about her decision to remain a full code and to be intubated if need arises. Again I reminded her that the outcome could likely be that she may not be able to be weaned from ventilator and her would have to decide about extubation or long tern Ventilator management in a facility in another part of the [facility]. She said they have discussed it and he knows that she would not want to remian on a ventilator long tern in her current condition. She feels he would be ble to direct care according to her wishes if the situation became obvious that she would need nursing home support. We talked again about completing a MOST forn to allow him to have her wishes in writing to suport his decisions at a later date and although she did not want to do this at present, she has my number in case she woul like me to talk with her and her to discuss and help with any questions they may have. She says she has done pretty well recently until this episode and already feels better with the steroids and antibiotics she has received. I also talked to her about following her at home for Palliaitive support, and gave her my card to have her discuss with her PCP or registered nurse post partum. Onset: Last week Onset/Duration: Gradual Quality of Pain: No pain Severity: None Associated Symptoms: Productive cough, Shortness of breath, Weakness Relieved by: Remaining still Past Medical History(Consults) - General Information Source: Patient, [facility] Records Allergies/Adverse Reactions: doxepin [Doxepin] Allergy (Verified 03/07/17 11:44) Shortness of Breath, Swelling etodolac [Etodolac] Allergy (Verified 03/07/17 11:44) loratadine [Loratadine] Allergy (Verified 03/07/17 11:44) Shortness of Breath, Swelling meloxicam [Meloxicam] Allergy (Verified 03/07/17 11:44) Sulfa (Sulfonamide Antibiotics) Allergy (Verified 03/07/17 11:44) Shortness of Breath, Swelling - Social History Lives with: Spouse/Significant other Family History: Reviewed & Not Pertinent, Hyperlipidemia, Hypertension Parental Family History Reviewed: No Children Family History Reviewed: No Sibling(s) Family History Reviewed.: No Smoking Status: Current Every Day Smoker Frequency of Alcohol Use: None Hx Recreational Drug Use: No Drugs: None Hx Prescription Drug Abuse: No - Past Medical History Cardiac Medical History: Reports: Hx Hypertension, Other - Occasional slightly irregular heartbeat, without formal diagnosis of fibrillation or flutter Denies: Hx Congestive Heart Failure, Hx DVT, Hx Heart Attack, Hx Hypercholesterolemia, Hx Pulmonary Embolism Pulmonary Medical History: Reports: Hx Asthma, Hx Bronchitis, Hx COPD - O2 dependent, 3 L nasal cannula [id number] Deficiency, Hx Pneumonia - Recurrent pseudomonal pneumonia, Other - Jsriw-[id number] Deficiency EENT Medical History: Reports: Eyes - Glasses, Throat - Occasional mild dysphagia without aspiration. Denies: Ears Neurological Medical History: Reports: Hx Migraine. Denies: Hx Seizures Endocrine Medical History: Denies: Hx Diabetes Mellitus Type 1, Hx Diabetes Mellitus Type 2, Hx Hyperthyroidism, Hx Hypothyroidism Renal/ Medical History: Reports: None. Denies: Hx Peritoneal Dialysis GI Medical History: Reports: Hx Gastroesophageal Reflux Disease. Denies: Hx Cirrhosis, Hx Hepatitis Musculoskeltal Medical History: Reports Hx Arthritis, Reports Hx Muscle Weakness Skin Medical History: Reports None Psychiatric Medical History: Denies: Hx Depression Traumatic Medical History: Reports: Hx Pneumothorax - x4 R lung, 2010 when the patient had a right lung bx required a chest tube Infectious Medical History: Denies: Hx Hepatitis Hematology: Reports: Other - alpha antitripsin discorder - Surgical History Past Surgical History: Reports: Hx Gynecologic Surgery, Hx Hysterectomy, Hx Tonsillectomy, Hx Tubal Ligation Review of systems Hematologic/Lymphatic: Other - Alpha 1 antitripin disorder per chart Ojective:Exam Vital Signs: Temp Pulse Resp BP Pulse Ox 97.2 F 102 H 6 L 89/66 L 95 03/09/17 09:40 03/09/17 09:40 03/09/17 12:04 03/09/17 09:41 03/09/17 12:04 Intake & Output 03/08/17 03/09/17 03/10/17 06:59 06:59 06:59 Intake Total 240 Balance 240 Weight 60.2 kg - General General Appearance: Alert, Anxious In distress: Mild - HEENT Head: Normocephalic Eyes: Normal Pupils: PERRLA Mouth/Lips: Normal - On Bipap Mucous membrane: Normal - Respiratory Respiratory Status: Labored - Labored slightly even with Bipap - Cardiovascular Rhythm: Regular Pulses: Normal: Radial - Extremities Upper extremity: Nontender Lower extremities: Nontender, Normal temperature Arm: Ecchymosis - Psychological Associated symptoms: Normal affect, Anxious - Little anxious about condition and being hungry Objective-Diagnostic Laboratory: 03/09/17 05:59 03/09/17 05:59 03/09/17 03/09/17 03/09/17 05:59 05:59 05:59 WBC 10.8 H RBC 3.93 Hgb 11.8 L Hct 35.3 L MCV 90 MCH 29.9 MCHC 33.3 RDW 14.4 H Plt Count 122 L Seg Neutrophils % Not Reportable Lymphocytes % Not Reportable Monocytes % Not Reportable Eosinophils % Not Reportable Basophils % Not Reportable Absolute Neutrophils Not Reportable Absolute Lymphocytes Not Reportable Absolute Monocytes Not Reportable Absolute Eosinophils Not Reportable Absolute Basophils Not Reportable VBG pH 7.28 L VBG pCO2 82.5 H* VBG HCO3 37.9 H VBG Base Excess 8.2 Sodium 142.5 Potassium 4.0 Chloride 94 L Carbon Dioxide 39 H Anion Gap 10 BUN 13 Creatinine 0.49 L Est GFR ( Amer) > 60 Est GFR (Non-Af Amer) > 60 Glucose 137 H Calcium 8.8 Magnesium 2.2 TSH Free T4 03/09/17 03/09/17 03/09/17 05:59 05:59 10:34 WBC RBC Hgb Hct MCV MCH MCHC RDW Plt Count Seg Neutrophils % Lymphocytes % Monocytes % Eosinophils % Basophils % Absolute Neutrophils Absolute Lymphocytes Absolute Monocytes Absolute Eosinophils Absolute Basophils VBG pH 7.35 VBG pCO2 74.9 H* VBG HCO3 40.6 H VBG Base Excess 12.1 Sodium Potassium Chloride Carbon Dioxide Anion Gap BUN Creatinine Est GFR ( Amer) Est GFR (Non-Af Amer) Glucose Calcium Magnesium TSH 0.31 L Free T4 1.02 Plan and Recommendation Plan and Recommendation: As above, did not want to change code status or complete MOST form today. May be willing to complete MOST later, but states she wants intubation if needed for "short time" and has discussed with her . Offered to follow at home if she wishes and her PCP or [facility] refers. WIll follow and hopefully talk to also.'' Appreciate opportunity to revisit this with this patient. - Time Spent with Patient Time spent with patient: 15 to 30 Minutes Time: 40 min in chart review, with patient and consultaiton woth nurse. Greater then 50% spent on Counseling & Coordination of Care: 25 min in discussion woth pt about options for care and answering questions.
--- NOTE | 2017-03-09 14:05 | PDOC CONSULTATION ---
Consultation Consult Date: 03/09/17 Attending physician:: SUDARSHAN HIGGINS Consult reason:: alpha one AT History of Present Illness Admission Date/PCP: 03/09/17 04:57 History of Present Illness: AUDIE KIMBLE is a 56 year old female with underlying 24/7 home O2 dependent COPD, along with nightly 12/6 home BiPAP, and underlying alpha-1 antitrypsin deficiency, still smoking, 2 cigarettes a day, who presents to the emergency room for evaluation of approximately a 48 hour or so history of progressive worsening of her chronic shortness of breath. Was reportedly seen in the emergency room approximately 24 hours ago, and was discharged home with steroids. However, despite this, and increased use of her home medications, breathing has continued to worsen. Was in significant respiratory distress upon arrival, but has improved with breathing treatments, magnesium sulfate, and BiPAP. Has had nausea, but no vomiting. No fever or chills. No chest or abdominal pain. Cough has been productive of green sputum. venous blood gas revealed increase in her PCO2. However, with some adjustments of her mask, PCO2 is decreased slightly. Patient has never been intubated for respiratory difficulty before, but is willing to undergo same if necessary. is present at her side with her approval, and concurs. She denies history of chronic lung disease the child or adolescent she admits to exposure to passive smoke as a child as well as an adult cigarette use is reflected above. Past Medical History Cardiac Medical History: Reports: Hypertension, Other - Occasional slightly irregular heartbeat, without formal diagnosis of fibrillation or flutter Denies: Congestive Heart Failure, DVT, Myocardial Infarction, Hyperlipidema, Pulmonary Embolism Pulmonary Medical History: Reports: Asthma, Bronchitis, Chronic Obstructive Pulmonary Disease (COPD) - O2 dependent, 3 L nasal cannula Lcyfz-7-Ksfzlin Deficiency, Pneumonia - Recurrent pseudomonal pneumonia, Other - Alpha-1- Trypsin Deficiency EENT Medical History: Reports: Eyes - Glasses, Throat - Occasional mild dysphagia without aspiration., Other - Easy bruising Denies: Ears Neurological Medical History: Reports: Migraine Denies: Hemorrhagic CVA, Ischemic CVA, Seizures Endocrine Medical History: Denies: Diabetes Mellitus Type 1, Diabetes Mellitus Type 2, Hyperthyroidism, Hypothyroidism Renal/ Medical History: Reports: None GI Medical History: Reports: Gastroesophageal Reflux Disease Denies: Cirrhosis, Hepatitis, Peptic Ulcer Disease Musculoskeltal Medical History: Reports: Arthritis Skin Medical History: Reports: None Psychiatric Medical History: Reports: Tobacco Dependency Denies: Alcohol Dependency, Depression, General Anxiety Disorder, Substance Abuse Traumatic Medical History: Reports: Pneumothorax - x4 R lung, 2010 when the patient had a right lung bx required a chest tube Hematology: Reports: Other - Easy bruising Infectious Medical History: Denies: Hepatitis B, Hepatitis C Past Surgical History Past Surgical History: Reports: Hysterectomy, Tonsillectomy, Tubal Ligation Social History Information Source: Patient, [facility] Records Lives with: Spouse/Significant other Smoking Status: Current Every Day Smoker Passive smoke exposure as: Both Frequency of Alcohol Use: None Hx Recreational Drug Use: No Drugs: None Hx Prescription Drug Abuse: No Do you have pets?: Yes Have you had any respiratory illnesses as a child?: No Have you been exposed to any sick contacts recently?: No Have you had any recent respiratory illnesses?: No Have you travelled outside of [place] in the past 12 months?: No - Advance Directive Resuscitation Status: Full Code Family History Family History: Reviewed & Not Pertinent, Hyperlipidemia, Hypertension Parental Family History Reviewed: Yes Children Family History Reviewed: Yes Sibling(s) Family History Reviewed.: Yes Medication/Allergy Allergies/Adverse Reactions: doxepin [Doxepin] Allergy (Verified 03/07/17 11:44) Shortness of Breath, Swelling etodolac [Etodolac] Allergy (Verified 03/07/17 11:44) loratadine [Loratadine] Allergy (Verified 03/07/17 11:44) Shortness of Breath, Swelling meloxicam [Meloxicam] Allergy (Verified 03/07/17 11:44) Sulfa (Sulfonamide Antibiotics) Allergy (Verified 03/07/17 11:44) Shortness of Breath, Swelling Review of Systems ROS unobtainable: Other - dyspnea Physical Exam Vital Signs: Temp Pulse Resp BP Pulse Ox 98.8 F 113 H 35 H 115/74 96 03/09/17 05:00 03/08/17 22:48 03/09/17 06:01 03/09/17 06:00 03/09/17 06:01 General appearance: PRESENT: cooperative, disheveled, mild distress, thin, well- developed Head exam: PRESENT: atraumatic, normocephalic Eye exam: PRESENT: conjunctiva pale, EOMI Mouth exam: PRESENT: dry mucosa, neck supple Neck exam: ABSENT: carotid bruit, JVD, lymphadenopathy, thyromegaly Respiratory exam: PRESENT: decreased breath sounds, prolonged expiratory phas, rhonchi, symmetrical, tachypnea, wheezes Cardiovascular exam: PRESENT: RRR, +S1, +S2 Pulses: PRESENT: normal radial pulses GI/Abdominal exam: PRESENT: normal bowel sounds, soft. ABSENT: distended, guarding, mass, organolmegaly, rebound, tenderness Rectal exam: PRESENT: deferred Gentrourinary exam: PRESENT: indwelling catheter Musculoskeletal exam: PRESENT: normal inspection Neurological exam: PRESENT: alert, awake Psychiatric exam: PRESENT: normal mood Skin exam: PRESENT: dry, warm Results Laboratory Results: 03/09/17 05:59 03/09/17 05:59 03/09/17 03/09/17 03/09/17 05:59 05:59 05:59 WBC 10.8 H RBC 3.93 Hgb 11.8 L Hct 35.3 L MCV 90 MCH 29.9 MCHC 33.3 RDW 14.4 H Plt Count 122 L Seg Neutrophils % Not Reportable Lymphocytes % Not Reportable Monocytes % Not Reportable Eosinophils % Not Reportable Basophils % Not Reportable Absolute Neutrophils Not Reportable Absolute Lymphocytes Not Reportable Absolute Monocytes Not Reportable Absolute Eosinophils Not Reportable Absolute Basophils Not Reportable VBG pH 7.28 L VBG pCO2 82.5 H* VBG HCO3 37.9 H VBG Base Excess 8.2 Sodium 142.5 Potassium 4.0 Chloride 94 L Carbon Dioxide 39 H Anion Gap 10 BUN 13 Creatinine 0.49 L Est GFR ( Amer) > 60 Est GFR (Non-Af Amer) > 60 Glucose 137 H Calcium 8.8 Magnesium 2.2 TSH 03/09/17 05:59 WBC RBC Hgb Hct MCV MCH MCHC RDW Plt Count Seg Neutrophils % Lymphocytes % Monocytes % Eosinophils % Basophils % Absolute Neutrophils Absolute Lymphocytes Absolute Monocytes Absolute Eosinophils Absolute Basophils VBG pH VBG pCO2 VBG HCO3 VBG Base Excess Sodium Potassium Chloride Carbon Dioxide Anion Gap BUN Creatinine Est GFR ( Amer) Est GFR (Non-Af Amer) Glucose Calcium Magnesium TSH 0.31 L Impressions: Chest X-Ray 03/08/17 23:19 IMPRESSION: No acute cardiopulmonary findings. Assessment & Plan - Diagnosis (1) Acute and chronic respiratory failure with hypercapnia Is this a current diagnosis for this admission?: Yes (2) Nmulr-[id number] deficiency Is this a current diagnosis for this admission?: Yes - Time Critical Time spent with patient: 35 or more minutes - 55 min
[2017-03-09] MEDS: METHYLPREDNISOLONE INJ 125 MG/2 ML SDV IV SCH ×2 (14:14→21:33)
[2017-03-09] MEDS ORDERED: DEXTROSE 5%-WATER 250 ML with PHENYLEPHRINE HCL 40 MG IV PRN ×2 (15:59)
[2017-03-09] MEDS: CEFEPIME 1 GM/D5W RTU 1 GM/50 ML RTUPB IV SCH (17:08)
[2017-03-09] MEDS: NORMAL SALINE 1000 ML 1,000 ML IV PRN (21:36)
[2017-03-10] MEDS: METHYLPREDNISOLONE INJ 125 MG/2 ML SDV IV SCH ×4 (05:00→23:11)
[2017-03-10] MEDS: AZITHROMYCIN 500 MG in DEXTROSE 5%-WATER 250 ML IV SCH (05:01)
[2017-03-10] MEDS: LANSOPRAZOLE 30 MG TAB.RAP.DR PO SCH ×2 (05:03→17:27)
[2017-03-10] MEDS: CEFEPIME 1 GM/D5W RTU 1 GM/50 ML RTUPB IV SCH ×2 (05:05→17:27)
[2017-03-10 05:15] LABS: BLOOD UREA NITROGEN 19 mg/dL (7-20); CALCIUM 8.7 mg/dL (8.4-10.2); CARBON DIOXIDE 38 mmol/L (22-30); CHLORIDE 99 mmol/L (98-107); CREATININE RESULT 0.52 mg/dL (0.52-1.25); GLUCOSE 129 mg/dL (75-110); MAGNESIUM 2.1 mg/dL (1.6-2.3); POTASSIUM 4.7 mmol/L (3.6-5.0)
[2017-03-10 05:24] LABS: ANION GAP 3 (5-19)
[2017-03-10] MEDS: IPRATROPIUM/ALBUTEROL 0.5-2.5 MG/3 ML AMPUL NEB SCH ×3 (08:25→19:31)
[2017-03-10 08:44] LABS: HEMATOCRIT 30.8 % (36.0-47.0); HEMOGLOBIN 10.1 g/dL (12.0-15.5); HGB HCT DIFFERENCE -0.5; MEAN CORPUSCULAR HEMOGLOBIN 29.7 pg (27.0-33.4); MEAN CORPUSCULAR HGB CONC 32.7 g/dL (32.0-36.0); MEAN CORPUSCULAR VOLUME 91 fl (80-97); RED CELL DISTRIBUTION WIDTH 14.9 % (11.5-14.0); WHITE BLOOD COUNT 5.7 10^3/uL (4.0-10.5)
[2017-03-10 09:02] LABS: BASOPHILS % (MANUAL) 0 % (0-2); EOSINOPHILS % (MANUAL) 0 % (0-6); LYMPHOCYTES % (MANUAL) 8 % (13-45); TOTAL CELLS COUNTED 100
[2017-03-10 09:03] LABS: ANISOCYTOSIS SLIGHT; ROULEAUX SLIGHT
[2017-03-10 09:04] LABS: OVALOCYTES SLIGHT; POIKILOCYTOSIS SLIGHT; POLYCHROMASIA SLIGHT
[2017-03-10] MEDS ORDERED: (PENDING PHARMACY ID) (Roflumilast [Daliresp 500 Mcg Tablet] 500 MCG) PO SCH (10:00)
--- NOTE | 2017-03-10 10:06 | PDOC PROGRESS REPORT ---
Subjective Progress Note for:: 03/10/17 Subjective:: Patient reports that she is breathing better than yesterday. Patient denies chest pain, abdominal pain, nausea, vomiting, fever, chills, diarrhea, constipation. Patient has not had a bowel movement in 2 days. Physical Exam Vital Signs: Temp Pulse Resp BP Pulse Ox 96.7 F L 88 29 H 103/72 96 03/10/17 07:42 03/10/17 07:42 03/10/17 07:42 03/10/17 07:42 03/10/17 07:42 Intake & Output 03/09/17 03/10/17 03/11/17 06:59 06:59 06:59 Intake Total 2407 Output Total 425 Balance 1982 Weight 60.2 kg Exam: General: Awake, alert, and oriented 3, moderate respiratory distress HEENT:cushingoid appearance, Atraumatic, normocephalic, pupils equal round and reactive to light, oropharynx , pink, no scleral icterus, no conjunctival injection Neck: No JVD, trachea midline Chest: Bilateral crackles, bilateral inspiratory and expiratory wheezes, CV: Regular rate and rhythm, normal S1 and S2, no murmur, rub, gallop Abdomen: Soft, nontender to palpation, nondistended, hypoactive bowel sounds; no rebound, rigidity, or guarding Extremities: No cyanosis, clubbing or edema Neuro: Cranial nerves II through XII are grossly intact without focal deficits; awake alert and oriented x3 Psych: Normal mood and affect Results Laboratory Results: 03/10/17 04:33 03/10/17 04:33 03/09/17 03/09/17 03/10/17 05:59 10:34 04:33 WBC RBC Hgb Hct MCV MCH MCHC RDW Plt Count Seg Neutrophils % Lymphocytes % Monocytes % Eosinophils % Basophils % Absolute Neutrophils Absolute Lymphocytes Absolute Monocytes Absolute Eosinophils Absolute Basophils VBG pH 7.35 VBG pCO2 74.9 H* VBG HCO3 40.6 H VBG Base Excess 12.1 Sodium 140.0 Potassium 4.7 Chloride 99 Carbon Dioxide 38 H Anion Gap 3 L BUN 19 Creatinine 0.52 Est GFR ( Amer) > 60 Est GFR (Non-Af Amer) > 60 Glucose 129 H Calcium 8.7 Magnesium 2.1 Free T4 1.02 03/10/17 04:33 WBC 5.7 RBC 3.40 L Hgb 10.1 L Hct 30.8 L MCV 91 MCH 29.7 MCHC 32.7 RDW 14.9 H Plt Count 103 L Seg Neutrophils % Not Reportable Lymphocytes % Not Reportable Monocytes % Not Reportable Eosinophils % Not Reportable Basophils % Not Reportable Absolute Neutrophils Not Reportable Absolute Lymphocytes Not Reportable Absolute Monocytes Not Reportable Absolute Eosinophils Not Reportable Absolute Basophils Not Reportable VBG pH VBG pCO2 VBG HCO3 VBG Base Excess Sodium Potassium Chloride Carbon Dioxide Anion Gap BUN Creatinine Est GFR ( Amer) Est GFR (Non-Af Amer) Glucose Calcium Magnesium Free T4 Impressions: Chest X-Ray 03/08/17 23:19 IMPRESSION: No acute cardiopulmonary findings. Assessment & Plan - Diagnosis (1) Acute and chronic respiratory failure with hypercapnia Is this a current diagnosis for this admission?: YesPlan: We will obtain ABG and assess for improvement. Appreciate pulmonary input on this case. (2) Acute on chronic respiratory failure Qualifiers: Respiratory failure complication: hypoxia and hypercapnia Qualified Code(s): J96.21 - Acute and chronic respiratory failure with hypoxia Is this a current diagnosis for this admission?: YesPlan: Secondary to patient's underlying alpha-1 antitrypsin deficiency. (3) COPD with acute exacerbation Is this a current diagnosis for this admission?: YesPlan: We will increase Solu-Medrol to 125 IV every 6. Pending sputum. On cefepime. (4) Hypertension Qualifiers: Hypertension type: essential hypertension Qualified Code(s): I10 - Essential (primary) hypertension Is this a current diagnosis for this admission?: YesPlan: Currently patient is normotensive and we will re-add her medications as tolerated. Patient did not require pressure. (5) Kjxpi-7-qxlyzmzlzpt deficiency Is this a current diagnosis for this admission?: YesPlan: This is incurable and patient CODE STATUS has been readdressed with her and she does want to be a full code. (6) DVT prophylaxis Is this a current diagnosis for this admission?: YesPlan: SCDs and heparin - Time Critical Time spent with patient: 25-34 minutes Medications reviewed and adjusted accordingly: Yes
[2017-03-10] MEDS ORDERED: SENNOSIDES/DOCUSATE 8.6-50 MG 1 EACH TABLET PO PRN (10:07)
[2017-03-10 10:10] LABS: ARTERIAL BLOOD BASE EXCESS 9.7 mmol/L; ARTERIAL BLOOD O2 SATURATION 96.7 % (94-98)
[2017-03-10] MEDS: ROFLUMILAST 500 MCG TABLET PO SCH (10:50)
[2017-03-10] MEDS: MONTELUKAST SODIUM 10 MG TABLET PO SCH (10:50)
[2017-03-10] MEDS: ACETAMINOPHEN 325 MG TABLET PO PRN ×2 (10:50→21:37)
[2017-03-10] MEDS: BUDESONIDE/FORMOTEROL 160-4.5 MCG 60 PUFF/6 GM MDI IH SCH ×2 (10:53→21:37)
[2017-03-10] MEDS: FLUTICASONE NASAL SPRAY 50 MCG/SPRY 120 SPRAY/16 GM NASL SCH ×2 (10:54→21:37)
[2017-03-10] MEDS: HEPARIN SOD (PORCINE) 5,000 UNIT/ML 1 ML SYRINGE SUBCUT SCH ×2 (14:01→21:38)
[2017-03-10] MEDS: DOCUSATE SODIUM 100 MG CAPSULE PO SCH (17:27)
[2017-03-10] MEDS: NORMAL SALINE 1000 ML 1,000 ML IV PRN (23:24)
[2017-03-11 04:52] LABS: HEMATOCRIT 29.6 % (36.0-47.0); HGB HCT DIFFERENCE 0.4; MEAN CORPUSCULAR HEMOGLOBIN 30.3 pg (27.0-33.4); MEAN CORPUSCULAR HGB CONC 33.9 g/dL (32.0-36.0); MEAN CORPUSCULAR VOLUME 89 fl (80-97); RED BLOOD COUNT 3.31 10^6/uL (3.72-5.28); RED CELL DISTRIBUTION WIDTH 14.1 % (11.5-14.0)
[2017-03-11 05:03] LABS: ANION GAP 6 (5-19); BLOOD UREA NITROGEN 16 mg/dL (7-20); CALCIUM 8.8 mg/dL (8.4-10.2); CARBON DIOXIDE 36 mmol/L (22-30); CHLORIDE 100 mmol/L (98-107); CREATININE RESULT 0.56 mg/dL (0.52-1.25); GLUCOSE 122 mg/dL (75-110); PHOSPHORUS 3.8 mg/dL (2.5-4.5); POTASSIUM 4.8 mmol/L (3.6-5.0); SODIUM 142.3 mmol/L (137-145)
[2017-03-11 05:09] LABS: PREALBUMIN 11.8 mg/dL (17.6-36.0)
[2017-03-11] MEDS: LANSOPRAZOLE 30 MG TAB.RAP.DR PO SCH ×2 (05:11→17:41)
[2017-03-11] MEDS: METHYLPREDNISOLONE INJ 125 MG/2 ML SDV IV SCH ×4 (05:11→23:29)
[2017-03-11] MEDS: CEFEPIME 1 GM/D5W RTU 1 GM/50 ML RTUPB IV SCH ×2 (05:11→17:41)
[2017-03-11] MEDS: AZITHROMYCIN 500 MG in DEXTROSE 5%-WATER 250 ML IV SCH (05:12)
[2017-03-11] MEDS: HEPARIN SOD (PORCINE) 5,000 UNIT/ML 1 ML SYRINGE SUBCUT SCH ×3 (05:16→21:44)
[2017-03-11 05:32] LABS: BASOPHILS % (MANUAL) 0 % (0-2); EOSINOPHILS % (MANUAL) 0 % (0-6); LYMPHOCYTES % (MANUAL) 4 % (13-45); TOTAL CELLS COUNTED 100
[2017-03-11 05:34] LABS: ANISOCYTOSIS SLIGHT; ROULEAUX SLIGHT
[2017-03-11 05:46] LABS: ARTERIAL BLOOD BASE EXCESS 6.3 mmol/L; ARTERIAL BLOOD O2 SATURATION 86.1 % (94-98)
[2017-03-11] MEDS: IPRATROPIUM/ALBUTEROL 0.5-2.5 MG/3 ML AMPUL NEB SCH ×3 (08:19→20:16)
[2017-03-11] MEDS: ROFLUMILAST 500 MCG TABLET PO SCH (09:40)
[2017-03-11] MEDS: BUDESONIDE/FORMOTEROL 160-4.5 MCG 60 PUFF/6 GM MDI IH SCH ×2 (09:40→21:42)
[2017-03-11] MEDS: DOCUSATE SODIUM 100 MG CAPSULE PO SCH ×2 (09:40→17:41)
[2017-03-11] MEDS: MONTELUKAST SODIUM 10 MG TABLET PO SCH (09:40)
[2017-03-11] MEDS: FLUTICASONE NASAL SPRAY 50 MCG/SPRY 120 SPRAY/16 GM NASL SCH ×2 (09:41→21:42)
--- NOTE | 2017-03-11 10:48 | RADIOLOGY REPORT (SQ) ---
EXAM DESCRIPTION: CHEST SINGLE VIEW COMPLETED DATE/TIME: 03/11/2017 9:33 am REASON FOR STUDY: resp fail COMPARISON: 03/08/2017 EXAM PARAMETERS: NUMBER OF VIEWS: One view. TECHNIQUE: Single frontal radiographic view of the chest acquired. RADIATION DOSE: NA LIMITATIONS: None. FINDINGS: LUNGS AND PLEURA: The lungs are hyperexpanded. There are areas of scarring in the right u pper lobe and in the left mid lung field. No mass is seen. No acute pulmonary infiltrate is present . There is no pleural effusion. MEDIASTINUM AND HILAR STRUCTURES: No masses. Contour normal. HEART AND VASCULAR STRUCTURES: Heart normal in size. Normal vasculature. BONES: No acute findings. HARDWARE: None in the chest. OTHER: No other significant finding. IMPRESSION: Chronic lung changes with no acute cardiopulmonary disease. TECHNICAL DOCUMENTATION: JOB ID: [id number]
[2017-03-11] MEDS: ACETAMINOPHEN 325 MG TABLET PO PRN (13:48)
--- NOTE | 2017-03-11 21:07 | PDOC PROGRESS REPORT ---
Subjective Progress Note for:: 03/11/17 Physical Exam Vital Signs: Temp Pulse Resp BP Pulse Ox 97.8 F 122 H 35 H 124/76 100 03/11/17 05:37 03/11/17 07:00 03/11/17 05:37 03/11/17 05:37 03/11/17 05:37 Intake & Output 03/10/17 03/11/17 03/12/17 06:59 06:59 06:59 Intake Total 2407 3580 Output Total 425 300 Balance 1982 3280 Weight 60.2 kg Exam: General: Awake, alert, and oriented 3, mild baseline respiratory distress HEENT:cushingoid appearance, Atraumatic, normocephalic, pupils equal round and reactive to light, oropharynx , pink, no scleral icterus, no conjunctival injection Neck: No JVD, trachea midline Chest: Bilateral crackles CV: Regular rate and rhythm, normal S1 and S2, no murmur, rub, gallop Abdomen: Soft, nontender to palpation, nondistended, hypoactive bowel sounds; no rebound, rigidity, or guarding Extremities: No cyanosis, clubbing or edema Neuro: Cranial nerves II through XII are grossly intact without focal deficits; awake alert and oriented x3 Psych: Normal mood and affect Results Laboratory Results: 03/11/17 04:12 03/11/17 04:12 03/10/17 03/10/17 03/11/17 04:33 09:50 04:12 WBC 5.7 6.0 RBC 3.40 L 3.31 L Hgb 10.1 L 10.0 L Hct 30.8 L 29.6 L MCV 91 89 MCH 29.7 30.3 MCHC 32.7 33.9 RDW 14.9 H 14.1 H Plt Count 103 L 125 L Seg Neutrophils % Not Reportable Not Reportable Lymphocytes % Not Reportable Not Reportable Monocytes % Not Reportable Not Reportable Eosinophils % Not Reportable Not Reportable Basophils % Not Reportable Not Reportable Absolute Neutrophils Not Reportable Not Reportable Absolute Lymphocytes Not Reportable Not Reportable Absolute Monocytes Not Reportable Not Reportable Absolute Eosinophils Not Reportable Not Reportable Absolute Basophils Not Reportable Not Reportable Carbonic Acid 2.03 H HCO3/H2CO3 Ratio 18:1 ABG pH 7.36 ABG pCO2 67.3 H ABG pO2 94.3 ABG HCO3 37.3 H ABG O2 Saturation 96.7 ABG Base Excess 9.7 FiO2 3 LITERS Sodium Potassium Chloride Carbon Dioxide Anion Gap BUN Creatinine Est GFR ( Amer) Est GFR (Non-Af Amer) Glucose Calcium Phosphorus Magnesium Prealbumin 03/11/17 03/11/17 04:12 04:55 WBC RBC Hgb Hct MCV MCH MCHC RDW Plt Count Seg Neutrophils % Lymphocytes % Monocytes % Eosinophils % Basophils % Absolute Neutrophils Absolute Lymphocytes Absolute Monocytes Absolute Eosinophils Absolute Basophils Carbonic Acid 1.68 H HCO3/H2CO3 Ratio 19:1 ABG pH 7.38 ABG pCO2 55.8 H ABG pO2 52.9 L ABG HCO3 32.5 H ABG O2 Saturation 86.1 L ABG Base Excess 6.3 FiO2 30% Sodium 142.3 Potassium 4.8 Chloride 100 Carbon Dioxide 36 H Anion Gap 6 BUN 16 Creatinine 0.56 Est GFR ( Amer) > 60 Est GFR (Non-Af Amer) > 60 Glucose 122 H Calcium 8.8 Phosphorus 3.8 Magnesium 2.0 Prealbumin 11.8 L Impressions: Chest X-Ray 03/08/17 23:19 IMPRESSION: No acute cardiopulmonary findings. Assessment & Plan - Diagnosis (1) Acute and chronic respiratory failure with hypercapnia Is this a current diagnosis for this admission?: YesPlan: stable Appreciate pulmonary input on this case. (2) Acute on chronic respiratory failure Qualifiers: Respiratory failure complication: hypoxia and hypercapnia Qualified Code(s): J96.21 - Acute and chronic respiratory failure with hypoxia Is this a current diagnosis for this admission?: YesPlan: Secondary to patient's underlying alpha-1 antitrypsin deficiency. (3) COPD with acute exacerbation Is this a current diagnosis for this admission?: YesPlan: Decrease Solu-Medrol to 80 IV every 6. Pending sputum. On cefepime. (4) Hypertension Qualifiers: Hypertension type: essential hypertension Qualified Code(s): I10 - Essential (primary) hypertension Is this a current diagnosis for this admission?: Yes (5) Lnmrg-6-[id number] deficiency Is this a current diagnosis for this admission?: YesPlan: This is incurable and patient CODE STATUS has been readdressed with her and she does want to be a full code. (6) DVT prophylaxis Is this a current diagnosis for this admission?: Yes (7) DNI (do not intubate) Is this a current diagnosis for this admission?: YesPlan: discussed with patient and she does not want to be intubated but does want other interventions - Time Time Spent with patient: 25-34 minutes Medications reviewed and adjusted accordingly: Yes Anticipated discharge: Home
[2017-03-11] MEDS: ROPINIROLE HCL 1 MG TABLET PO SCH (21:42)
[2017-03-11] MEDS ORDERED: ROPINIROLE HCL 1 MG TABLET PO SCH (22:00)
[2017-03-11] MEDS ORDERED: ROPINIROLE HCL 2 MG TABLET PO SCH (22:00)
[2017-03-12 04:42] LABS: ABSOLUTE LYMPHOCYTES (AUTO) 0.2 10^3/uL (0.5-4.7); ABSOLUTE MONOCYTES (AUTO) 0.1 10^3/uL (0.1-1.4); ABSOLUTE NEUT (AUTO) 4.1 10^3/uL (1.7-8.2); BASOPHILS % (AUTO) 0.1 % (0-2); HEMATOCRIT 29.7 % (36.0-47.0); HGB HCT DIFFERENCE 0.3; LYMPHOCYTES % (AUTO) 5.1 % (13-45); MEAN CORPUSCULAR HEMOGLOBIN 29.9 pg (27.0-33.4); MEAN CORPUSCULAR HGB CONC 33.5 g/dL (32.0-36.0); MEAN CORPUSCULAR VOLUME 89 fl (80-97); MONOCYTES % (AUTO) 2.8 % (3-13); RED BLOOD COUNT 3.33 10^6/uL (3.72-5.28); RED CELL DISTRIBUTION WIDTH 14.1 % (11.5-14.0); WHITE BLOOD COUNT 4.4 10^3/uL (4.0-10.5)
[2017-03-12 04:58] LABS: ANION GAP 6 (5-19); BLOOD UREA NITROGEN 15 mg/dL (7-20); CALCIUM 8.8 mg/dL (8.4-10.2); CARBON DIOXIDE 36 mmol/L (22-30); CHLORIDE 99 mmol/L (98-107); CREATININE RESULT 0.49 mg/dL (0.52-1.25); GLUCOSE 122 mg/dL (75-110); MAGNESIUM 2.1 mg/dL (1.6-2.3); POTASSIUM 4.6 mmol/L (3.6-5.0); SODIUM 140.8 mmol/L (137-145)
[2017-03-12] MEDS: LANSOPRAZOLE 30 MG TAB.RAP.DR PO SCH ×2 (06:15→17:41)
[2017-03-12] MEDS: METHYLPREDNISOLONE INJ 125 MG/2 ML SDV IV SCH ×4 (06:15→23:58)
[2017-03-12] MEDS: CEFEPIME 1 GM/D5W RTU 1 GM/50 ML RTUPB IV SCH (06:15)
[2017-03-12] MEDS: HEPARIN SOD (PORCINE) 5,000 UNIT/ML 1 ML SYRINGE SUBCUT SCH ×3 (06:24→21:38)
[2017-03-12] MEDS: IPRATROPIUM/ALBUTEROL 0.5-2.5 MG/3 ML AMPUL NEB SCH ×3 (08:07→20:10)
[2017-03-12] MEDS: AZITHROMYCIN 250 MG TABLET PO SCH (09:58)
[2017-03-12] MEDS: MONTELUKAST SODIUM 10 MG TABLET PO SCH (09:59)
[2017-03-12] MEDS: ROFLUMILAST 500 MCG TABLET PO SCH (09:59)
[2017-03-12] MEDS: FLUTICASONE NASAL SPRAY 50 MCG/SPRY 120 SPRAY/16 GM NASL SCH ×2 (10:00→21:22)
[2017-03-12] MEDS: BUDESONIDE/FORMOTEROL 160-4.5 MCG 60 PUFF/6 GM MDI IH SCH ×2 (10:00→21:22)
[2017-03-12] MEDS: DOCUSATE SODIUM 100 MG CAPSULE PO SCH ×2 (10:06→17:54)
[2017-03-12 16:30] LABS: ARTERIAL BLOOD BASE EXCESS 8.5 mmol/L; ARTERIAL BLOOD O2 SATURATION 94.9 % (94-98)
--- NOTE | 2017-03-12 18:52 | PDOC PROGRESS REPORT ---
Subjective Progress Note for:: 03/12/17 Subjective:: Patient reported feeling improved from yesterday. She is still not back to her baseline. Patient denies chest pain, nausea, vomiting, fever, chills, constipation, diarrhea, new onset weakness. Physical Exam Vital Signs: Temp Pulse Resp BP Pulse Ox 97.9 F 78 25 H 107/63 93 03/12/17 04:20 03/12/17 04:20 03/12/17 04:31 03/12/17 04:20 03/12/17 04:31 Intake & Output 03/11/17 03/12/17 03/13/17 06:59 06:59 06:59 Intake Total 3580 2328 Output Total 300 Balance 3280 2328 Weight 61 kg Exam: General: Awake, alert, and oriented 3, mild baseline respiratory distress, tachypnea HEENT:cushingoid appearance, Atraumatic, normocephalic, pupils equal round and reactive to light, oropharynx , pink, no scleral icterus, no conjunctival injection Neck: No JVD, trachea midline Chest: Coarse, prolonged expiratory phase, tachypnea, mild retractions CV: Regular rate and rhythm, normal S1 and S2, no murmur, rub, gallop Abdomen: Soft, nontender to palpation, nondistended, active bowel sounds; no rebound, rigidity, or guarding Extremities: No cyanosis, clubbing or edema Neuro: Cranial nerves II through XII are grossly intact without focal deficits; awake alert and oriented x3 Psych: Normal mood and affect Results Laboratory Results: 03/12/17 04:07 03/12/17 04:07 03/12/17 03/12/17 04:07 04:07 WBC 4.4 RBC 3.33 L Hgb 10.0 L Hct 29.7 L MCV 89 MCH 29.9 MCHC 33.5 RDW 14.1 H Plt Count 126 L Seg Neutrophils % 92.0 H Lymphocytes % 5.1 L Monocytes % 2.8 L Eosinophils % 0.0 Basophils % 0.1 Absolute Neutrophils 4.1 Absolute Lymphocytes 0.2 L Absolute Monocytes 0.1 Absolute Eosinophils 0.0 Absolute Basophils 0.0 Sodium 140.8 Potassium 4.6 Chloride 99 Carbon Dioxide 36 H Anion Gap 6 BUN 15 Creatinine 0.49 L Est GFR ( Amer) > 60 Est GFR (Non-Af Amer) > 60 Glucose 122 H Calcium 8.8 Magnesium 2.1 Impressions: Chest X-Ray 03/11/17 06:00 IMPRESSION: Chronic lung changes with no acute cardiopulmonary disease. Assessment & Plan - Diagnosis (1) Acute and chronic respiratory failure with hypercapnia Is this a current diagnosis for this admission?: YesPlan: stable Appreciate pulmonary input on this case. (2) Acute on chronic respiratory failure Qualifiers: Respiratory failure complication: hypoxia and hypercapnia Qualified Code(s): J96.21 - Acute and chronic respiratory failure with hypoxia Is this a current diagnosis for this admission?: YesPlan: Secondary to patient's underlying alpha-1 antitrypsin deficiency. (3) COPD with acute exacerbation Is this a current diagnosis for this admission?: YesPlan: Continue Solu-Medrol to 80 IV every 6. Pending sputum. Stop cefepime and continue with azithromycin. I did discuss her case with her regular grit blaster Dr. Mejia's office and patient did not have any recent cultures that would warrant further treatment with broad-spectrum antibiotic therapy. Patient has had interval courses of prednisone in between her admissions. (4) Hypertension Qualifiers: Hypertension type: essential hypertension Qualified Code(s): I10 - Essential (primary) hypertension Is this a current diagnosis for this admission?: YesPlan: Currently patient is normotensive and we will re-add her medications as tolerated. Patient did not require pressure. (5) Tlxjk-6-pxcpwsfqivb deficiency Is this a current diagnosis for this admission?: YesPlan: This is incurable and patient CODE STATUS has been readdressed with her and she does want to be a dni want other measures taken (6) DVT prophylaxis Is this a current diagnosis for this admission?: Yes (7) DNI (do not intubate) Is this a current diagnosis for this admission?: Yes - Time Time Spent with patient: 35 or more minutes Medications reviewed and adjusted accordingly: Yes Anticipated discharge: Home Within: within 48 hours
[2017-03-12] MEDS: ROPINIROLE HCL 1 MG TABLET PO SCH (21:22)
[2017-03-13] MEDS: METHYLPREDNISOLONE INJ 125 MG/2 ML SDV IV SCH ×2 (06:22→13:42)
[2017-03-13] MEDS: LANSOPRAZOLE 30 MG TAB.RAP.DR PO SCH ×2 (06:22→18:03)
[2017-03-13] MEDS: HEPARIN SOD (PORCINE) 5,000 UNIT/ML 1 ML SYRINGE SUBCUT SCH ×3 (06:35→21:46)
[2017-03-13] MEDS: IPRATROPIUM/ALBUTEROL 0.5-2.5 MG/3 ML AMPUL NEB SCH ×3 (07:55→20:04)
[2017-03-13] MEDS: DOCUSATE SODIUM 100 MG CAPSULE PO SCH ×2 (09:15→15:55)
[2017-03-13] MEDS: MONTELUKAST SODIUM 10 MG TABLET PO SCH (09:16)
[2017-03-13] MEDS: AZITHROMYCIN 250 MG TABLET PO SCH (09:16)
[2017-03-13] MEDS: ROFLUMILAST 500 MCG TABLET PO SCH (09:16)
[2017-03-13] MEDS: BUDESONIDE/FORMOTEROL 160-4.5 MCG 60 PUFF/6 GM MDI IH SCH ×2 (09:17→21:42)
[2017-03-13] MEDS: FLUTICASONE NASAL SPRAY 50 MCG/SPRY 120 SPRAY/16 GM NASL SCH ×2 (09:17→21:42)
[2017-03-13] MEDS: ACETAMINOPHEN 325 MG TABLET PO PRN ×2 (15:55→19:51)
[2017-03-13] MEDS: PREDNISONE 20 MG TABLET PO SCH (17:59)
--- NOTE | 2017-03-13 19:47 | PDOC PROGRESS REPORT ---
Subjective Progress Note for:: 03/13/17 Subjective:: Patient seen earlier today on morning rounds. Patient reported feeling improved from yesterday. She is nearing but still not back to her baseline. Patient denies chest pain, nausea, vomiting, fever, chills, constipation, diarrhea, new onset weakness. Physical Exam Vital Signs: Temp Pulse Resp BP Pulse Ox 97.6 F 103 H 20 130/73 H 99 03/13/17 15:43 03/13/17 15:43 03/13/17 15:43 03/13/17 15:43 03/13/17 15:43 Intake & Output 03/12/17 03/13/17 03/14/17 06:59 06:59 06:59 Intake Total 2328 1366 935 Output Total 5 Balance 2328 1361 935 Weight 61 kg 64.1 kg Exam: General: Awake, alert, and oriented 3, mild baseline respiratory distress, tachypnea HEENT:cushingoid appearance, Atraumatic, normocephalic, pupils equal round and reactive to light, oropharynx , pink, no scleral icterus, no conjunctival injection Neck: No JVD, trachea midline Chest: Clear to auscultation bilaterally, prolonged expiratory phase, mild tachypnea CV: Regular rate and rhythm, normal S1 and S2, no murmur, rub, gallop Abdomen: Soft, nontender to palpation, nondistended, active bowel sounds; no rebound, rigidity, or guarding Extremities: No cyanosis, clubbing or edema Neuro: Cranial nerves II through XII are grossly intact without focal deficits; awake alert and oriented x3 Psych: Normal mood and affect Results Laboratory Results: 03/12/17 04:07 03/12/17 04:07 Impressions: Chest X-Ray 03/11/17 06:00 IMPRESSION: Chronic lung changes with no acute cardiopulmonary disease. Assessment & Plan - Diagnosis (1) COPD with acute exacerbation Is this a current diagnosis for this admission?: YesPlan: Transition patient to prednisone twice daily. Patient sputum culture reveals Mehnaz. Continue with azithromycin. I did discuss her case with her regular manager assurance Dr. Mejia's office and patient did not have any recent cultures that would warrant further treatment with broad-spectrum antibiotic therapy. Patient has had interval courses of prednisone in between her admissions. (2) Acute and chronic respiratory failure with hypercapnia Is this a current diagnosis for this admission?: YesPlan: stable Appreciate pulmonary input on this case. (3) Acute on chronic respiratory failure Qualifiers: Respiratory failure complication: hypoxia and hypercapnia Qualified Code(s): J96.21 - Acute and chronic respiratory failure with hypoxia Is this a current diagnosis for this admission?: YesPlan: Secondary to patient's underlying alpha-1 antitrypsin deficiency. (4) Hypertension Qualifiers: Hypertension type: essential hypertension Qualified Code(s): I10 - Essential (primary) hypertension Is this a current diagnosis for this admission?: Yes (5) Cxtjf-1-zmzwphndrat deficiency Is this a current diagnosis for this admission?: Yes (6) DVT prophylaxis Is this a current diagnosis for this admission?: Yes (7) DNI (do not intubate) Is this a current diagnosis for this admission?: Yes - Time Time Spent with patient: 25-34 minutes Medications reviewed and adjusted accordingly: Yes Anticipated discharge: Home Within: within 24 hours, within 48 hours
[2017-03-13] MEDS: ROPINIROLE HCL 1 MG TABLET PO SCH (21:41)
[2017-03-14 04:49] LABS: ABSOLUTE LYMPHOCYTES (AUTO) 0.6 10^3/uL (0.5-4.7); ABSOLUTE MONOCYTES (AUTO) 0.4 10^3/uL (0.1-1.4); ABSOLUTE NEUT (AUTO) 5.2 10^3/uL (1.7-8.2); BASOPHILS % (AUTO) 0.1 % (0-2); HEMATOCRIT 32.3 % (36.0-47.0); HEMOGLOBIN 10.8 g/dL (12.0-15.5); HGB HCT DIFFERENCE 0.1; LYMPHOCYTES % (AUTO) 9.3 % (13-45); MEAN CORPUSCULAR HEMOGLOBIN 29.9 pg (27.0-33.4); MEAN CORPUSCULAR HGB CONC 33.4 g/dL (32.0-36.0); MEAN CORPUSCULAR VOLUME 89 fl (80-97); RED BLOOD COUNT 3.61 10^6/uL (3.72-5.28); RED CELL DISTRIBUTION WIDTH 14.2 % (11.5-14.0); SEGMENTED NEUTROPHILS % (AUTO) 83.6 % (42-78); WHITE BLOOD COUNT 6.2 10^3/uL (4.0-10.5)
[2017-03-14 05:02] LABS: BLOOD UREA NITROGEN 16 mg/dL (7-20); CALCIUM 8.4 mg/dL (8.4-10.2); CREATININE RESULT 0.49 mg/dL (0.52-1.25); GLUCOSE 99 mg/dL (75-110); POTASSIUM 4.6 mmol/L (3.6-5.0)
[2017-03-14 05:21] LABS: CHLORIDE 94 mmol/L (98-107); SODIUM 140.4 mmol/L (137-145)
[2017-03-14 05:35] LABS: CARBON DIOXIDE 42 mmol/L (22-30)
[2017-03-14 05:38] LABS: ANION GAP 4 (5-19)
[2017-03-14] MEDS: HEPARIN SOD (PORCINE) 5,000 UNIT/ML 1 ML SYRINGE SUBCUT SCH (06:02)
[2017-03-14] MEDS: LANSOPRAZOLE 30 MG TAB.RAP.DR PO SCH (06:02)
[2017-03-14] MEDS: IPRATROPIUM/ALBUTEROL 0.5-2.5 MG/3 ML AMPUL NEB SCH ×2 (07:56→14:32)
[2017-03-14] MEDS: MONTELUKAST SODIUM 10 MG TABLET PO SCH (09:14)
[2017-03-14] MEDS: ROFLUMILAST 500 MCG TABLET PO SCH (09:15)
[2017-03-14] MEDS: ACETAMINOPHEN 325 MG TABLET PO PRN (09:15)
[2017-03-14] MEDS: AZITHROMYCIN 250 MG TABLET PO SCH (09:15)
[2017-03-14] MEDS: PREDNISONE 20 MG TABLET PO SCH (09:15)
[2017-03-14] MEDS: BUDESONIDE/FORMOTEROL 160-4.5 MCG 60 PUFF/6 GM MDI IH SCH (09:19)
[2017-03-14] MEDS: FLUTICASONE NASAL SPRAY 50 MCG/SPRY 120 SPRAY/16 GM NASL SCH (09:20)
[2017-03-14] MEDS: DOCUSATE SODIUM 100 MG CAPSULE PO SCH (09:20)
[2017-03-14 14:15] VITALS: BP 112/55
--- NOTE | 2017-03-14 17:25 | PDOC PROGRESS REPORT ---
Subjective Progress Note for:: 03/10/17 Subjective:: Awake less sob Physical Exam Vital Signs: Temp Pulse Resp BP Pulse Ox 96.7 F L 88 29 H 103/72 96 03/10/17 07:42 03/10/17 07:42 03/10/17 07:42 03/10/17 07:42 03/10/17 07:42 Intake & Output 03/09/17 03/10/17 03/11/17 06:59 06:59 06:59 Intake Total 2407 Output Total 425 Balance 1982 Weight 60.2 kg General appearance: PRESENT: cooperative, mild distress, thin Head exam: PRESENT: atraumatic, normocephalic Eye exam: PRESENT: conjunctiva pale, EOMI Mouth exam: PRESENT: dry mucosa, neck supple Neck exam: ABSENT: carotid bruit, JVD, lymphadenopathy, thyromegaly Respiratory exam: PRESENT: decreased breath sounds, prolonged expiratory phas Cardiovascular exam: PRESENT: RRR, +S1, +S2 Pulses: PRESENT: normal radial pulses GI/Abdominal exam: PRESENT: normal bowel sounds, soft. ABSENT: distended, guarding, mass, organolmegaly, rebound, tenderness Rectal exam: PRESENT: deferred Gentrourinary exam: PRESENT: indwelling catheter Musculoskeletal exam: PRESENT: normal inspection Neurological exam: PRESENT: alert, awake Skin exam: PRESENT: dry, warm Results Laboratory Results: 03/10/17 04:33 03/09/17 03/09/17 03/10/17 05:59 10:34 04:33 VBG pH 7.35 VBG pCO2 74.9 H* VBG HCO3 40.6 H VBG Base Excess 12.1 Sodium 140.0 Potassium 4.7 Chloride 99 Carbon Dioxide 38 H Anion Gap 3 L BUN 19 Creatinine 0.52 Est GFR ( Amer) > 60 Est GFR (Non-Af Amer) > 60 Glucose 129 H Calcium 8.7 Magnesium 2.1 Free T4 1.02 Impressions: Chest X-Ray 03/08/17 23:19 IMPRESSION: No acute cardiopulmonary findings. Assessment & Plan - Diagnosis (1) Acute and chronic respiratory failure with hypercapnia Is this a current diagnosis for this admission?: Yes (2) [id number] deficiency Is this a current diagnosis for this admission?: Yes
--- NOTE | 2017-03-14 17:28 | PDOC PROGRESS REPORT ---
Subjective Progress Note for:: 03/11/17 Subjective:: Awake improving Physical Exam Vital Signs: Temp Pulse Resp BP Pulse Ox 98.2 F 88 30 H 122/69 100 03/12/17 07:15 03/12/17 07:15 03/12/17 07:15 03/12/17 07:15 03/12/17 07:15 Intake & Output 03/11/17 03/12/17 03/13/17 06:59 06:59 06:59 Intake Total 3580 2328 Output Total 300 Balance 3280 2328 Weight 61 kg General appearance: PRESENT: cooperative, disheveled, thin, well-developed Head exam: PRESENT: atraumatic, normocephalic Eye exam: PRESENT: conjunctiva pale, EOMI Mouth exam: PRESENT: dry mucosa, neck supple Neck exam: ABSENT: carotid bruit, JVD, lymphadenopathy, thyromegaly Pulses: PRESENT: normal radial pulses GI/Abdominal exam: PRESENT: normal bowel sounds, soft. ABSENT: distended, guarding, mass, organolmegaly, rebound, tenderness Rectal exam: PRESENT: deferred Gentrourinary exam: PRESENT: indwelling catheter Neurological exam: PRESENT: alert, awake Psychiatric exam: PRESENT: normal mood Skin exam: PRESENT: dry, warm Results Laboratory Results: 03/12/17 04:07 03/12/17 04:07 03/12/17 03/12/17 04:07 04:07 WBC 4.4 RBC 3.33 L Hgb 10.0 L Hct 29.7 L MCV 89 MCH 29.9 MCHC 33.5 RDW 14.1 H Plt Count 126 L Seg Neutrophils % 92.0 H Lymphocytes % 5.1 L Monocytes % 2.8 L Eosinophils % 0.0 Basophils % 0.1 Absolute Neutrophils 4.1 Absolute Lymphocytes 0.2 L Absolute Monocytes 0.1 Absolute Eosinophils 0.0 Absolute Basophils 0.0 Sodium 140.8 Potassium 4.6 Chloride 99 Carbon Dioxide 36 H Anion Gap 6 BUN 15 Creatinine 0.49 L Est GFR ( Amer) > 60 Est GFR (Non-Af Amer) > 60 Glucose 122 H Calcium 8.8 Magnesium 2.1 Impressions: Chest X-Ray 03/11/17 06:00 IMPRESSION: Chronic lung changes with no acute cardiopulmonary disease. Assessment & Plan - Diagnosis (1) Acute and chronic respiratory failure with hypercapnia Is this a current diagnosis for this admission?: Yes (2) [id number] deficiency Is this a current diagnosis for this admission?: Yes
--- NOTE | 2017-03-14 17:34 | PDOC PROGRESS REPORT ---
Subjective Progress Note for:: 03/12/17 Subjective:: Awake improving at/nearing baseline Physical Exam Vital Signs: Temp Pulse Resp BP Pulse Ox 98.2 F 88 30 H 122/69 100 03/12/17 07:15 03/12/17 07:15 03/12/17 07:15 03/12/17 07:15 03/12/17 07:15 Intake & Output 03/11/17 03/12/17 03/13/17 06:59 06:59 06:59 Intake Total 3580 2328 Output Total 300 Balance 3280 2328 Weight 61 kg General appearance: PRESENT: cooperative, disheveled, thin Head exam: PRESENT: atraumatic, normocephalic Eye exam: PRESENT: conjunctiva pale, EOMI Mouth exam: PRESENT: dry mucosa, neck supple Neck exam: ABSENT: carotid bruit, JVD, lymphadenopathy, thyromegaly Respiratory exam: PRESENT: decreased breath sounds, prolonged expiratory phas, symmetrical, unlabored Cardiovascular exam: PRESENT: RRR, +S1, +S2 Pulses: PRESENT: normal radial pulses GI/Abdominal exam: PRESENT: normal bowel sounds, soft. ABSENT: distended, guarding, mass, organolmegaly, rebound, tenderness Rectal exam: PRESENT: deferred Musculoskeletal exam: PRESENT: normal inspection Neurological exam: PRESENT: alert, awake Psychiatric exam: PRESENT: normal mood Skin exam: PRESENT: dry Results Laboratory Results: 03/12/17 04:07 03/12/17 04:07 03/12/17 03/12/17 04:07 04:07 WBC 4.4 RBC 3.33 L Hgb 10.0 L Hct 29.7 L MCV 89 MCH 29.9 MCHC 33.5 RDW 14.1 H Plt Count 126 L Seg Neutrophils % 92.0 H Lymphocytes % 5.1 L Monocytes % 2.8 L Eosinophils % 0.0 Basophils % 0.1 Absolute Neutrophils 4.1 Absolute Lymphocytes 0.2 L Absolute Monocytes 0.1 Absolute Eosinophils 0.0 Absolute Basophils 0.0 Sodium 140.8 Potassium 4.6 Chloride 99 Carbon Dioxide 36 H Anion Gap 6 BUN 15 Creatinine 0.49 L Est GFR ( Amer) > 60 Est GFR (Non-Af Amer) > 60 Glucose 122 H Calcium 8.8 Magnesium 2.1 Impressions: Chest X-Ray 03/11/17 06:00 IMPRESSION: Chronic lung changes with no acute cardiopulmonary disease. Assessment & Plan - Diagnosis (1) Acute and chronic respiratory failure with hypercapnia Is this a current diagnosis for this admission?: YesPlan: patient will need NIPPV post discharge (2) [id number] deficiency Is this a current diagnosis for this admission?: Yes
--- NOTE | 2017-03-14 17:37 | PDOC PROGRESS REPORT ---
Subjective Progress Note for:: 03/13/17 Subjective:: Awake alert well oriented Physical Exam Vital Signs: Temp Pulse Resp BP Pulse Ox 97.2 F 104 H 19 125/71 100 03/14/17 08:03 03/14/17 08:03 03/14/17 08:03 03/14/17 08:03 03/14/17 08:03 Intake & Output 03/13/17 03/14/17 03/15/17 06:59 06:59 06:59 Intake Total 1366 1983 Output Total 5 Balance 1361 1983 Weight 64.1 kg 63.9 kg General appearance: PRESENT: no acute distress, disheveled, thin, well-developed Head exam: PRESENT: atraumatic, normocephalic Eye exam: PRESENT: conjunctiva pale, EOMI Mouth exam: PRESENT: dry mucosa, neck supple, tongue midline Neck exam: ABSENT: carotid bruit, JVD, lymphadenopathy, thyromegaly Respiratory exam: PRESENT: decreased breath sounds, prolonged expiratory phas Cardiovascular exam: PRESENT: irregular rhythm, RRR, +S1, +S2 Pulses: PRESENT: normal radial pulses GI/Abdominal exam: PRESENT: normal bowel sounds, soft. ABSENT: distended, guarding, mass, organolmegaly, rebound, tenderness Rectal exam: PRESENT: deferred Gentrourinary exam: PRESENT: indwelling catheter Musculoskeletal exam: PRESENT: normal inspection Neurological exam: PRESENT: alert, awake Psychiatric exam: PRESENT: normal mood Skin exam: PRESENT: dry, warm Results Laboratory Results: 03/14/17 04:12 03/14/17 04:12 03/14/17 03/14/17 04:12 04:12 WBC 6.2 RBC 3.61 L Hgb 10.8 L Hct 32.3 L MCV 89 MCH 29.9 MCHC 33.4 RDW 14.2 H Plt Count 145 L Seg Neutrophils % 83.6 H Lymphocytes % 9.3 L Monocytes % 7.0 Eosinophils % 0.0 Basophils % 0.1 Absolute Neutrophils 5.2 Absolute Lymphocytes 0.6 Absolute Monocytes 0.4 Absolute Eosinophils 0.0 Absolute Basophils 0.0 Sodium 140.4 Potassium 4.6 Chloride 94 L Carbon Dioxide 42 H* Anion Gap 4 L BUN 16 Creatinine 0.49 L Est GFR ( Amer) > 60 Est GFR (Non-Af Amer) > 60 Glucose 99 Calcium 8.4 03/09/17 08:04 Blood Blood Culture - Final NO GROWTH IN 5 DAYS Impressions: Chest X-Ray 03/11/17 06:00 IMPRESSION: Chronic lung changes with no acute cardiopulmonary disease. Assessment & Plan - Diagnosis (1) Acute and chronic respiratory failure with hypercapnia Is this a current diagnosis for this admission?: Yes (2) Scylc-[id number] deficiency Is this a current diagnosis for this admission?: Yes
--- NOTE | 2017-03-14 18:32 | PDOC DISCHARGE SUMMARY ---
General - Admit/Disc Date/PCP Admission Date/Primary Care Provider: 03/09/17 04:57 Discharge Date: 03/14/17 - Discharge Diagnosis (1) COPD with acute exacerbation Is this a current diagnosis for this admission?: Yes (2) Acute and chronic respiratory failure with hypercapnia Is this a current diagnosis for this admission?: Yes (3) Acute on chronic respiratory failure Is this a current diagnosis for this admission?: Yes (4) Hypertension Is this a current diagnosis for this admission?: Yes (5) [id number] deficiency Is this a current diagnosis for this admission?: Yes (6) DNI (do not intubate) Is this a current diagnosis for this admission?: Yes - Additional Information Resuscitation Status: Full Code Discharge Diet: Regular Discharge Activity: Activity As Tolerated, Balance Activity w/Rest Home Medications: Albuterol Sulfate [Ventolin 0.083% Neb 2.5 mg/3 mL Ampul] 2.5 mg PO Q4HP PRN Bisoprolol Fumarate [Zebeta 5 mg Tablet] 2.5 mg PO DAILY 03/09/17 Budesonide/Formoterol Fumarate [Symbicort HFA 160-4.5 mcg Inhaler 6 gm] 1 puff IH Q12 03/09/17 Fluticasone Propionate [Flonase Nasal [place] 50 Mcg/[place] 16 gm] 1 spray NASL Q12 03/09/17 Ipratropium Kenna [Atrovent 0.02% Neb 0.5 mg/2.5 ml Ampul] 0.5 mg NEB Q4HP PRN 03/09/17 Levalbuterol Tartrate [Xopenex Hfa] 2 puff IH Q4HP PRN 03/09/17 Montelukast Sodium [Singulair 10 mg Tablet] 10 mg PO DAILY 03/09/17 Roflumilast [Daliresp 500 mcg Tablet] 500 mcg PO DAILY 03/09/17 Tiotropium Kenna [Spiriva Handihaler 5 Cap/Kit (18 Mcg/Cap)] 1 puff IN DAILY 03/09/17 Ropinirole HCl 2 tab PO QHS 03/11/17 Azithromycin [Zithromax 250 mg Tablet] 500 mg PO DAILY #5 tablet 03/14/17 Fluconazole [Diflucan] 150 mg PO ONCE PRN #1 tablet 03/14/17 Furosemide [Lasix 20 mg Tablet] 10 mg PO ASDIR PRN #5 tablet 03/14/17 Prednisone [Deltasone 20 mg Tablet] 60 mg PO DAILY #18 tablet 03/14/17 Sennosides/Docusate 8.6-50 mg [Senna Plus Tablet] 2 each PO HSP PRN tablet History of Present Illness History of Present Illness: H&P for full HPI Hospital Course Hospital Course: Patient presented with two day history of shortness of breath and was started empircally on broad spectrum antibiotics and high dose steroids and placed in ICU. Patient had a difficult initial course with bipap but was switched to APERVS mode with improvement. patient was downgraded and antibiotics were de- esclated to azithromycin alone pending afb culture for MAC. Patient was given trilogy and instruction. Patient is slightly non-compliant with this therapy. The remainder of her hospital stay was unremarkable. patient was doing well and requesting discharge. Physical Exam Vital Signs: Temp Pulse Resp BP Pulse Ox 97.7 F 114 H 19 112/55 L 99 03/14/17 14:13 03/14/17 14:13 03/14/17 14:13 03/14/17 14:13 03/14/17 14:13 Intake & Output 03/13/17 03/14/17 03/15/17 06:59 06:59 06:59 Intake Total 1366 1983 379 Output Total 5 Balance 1361 1983 379 Weight 64.1 kg 63.9 kg Exam: General: Awake, alert, and oriented 3, mild baseline respiratory distress HEENT:cushingoid appearance, Atraumatic, normocephalic, pupils equal round and reactive to light, oropharynx , pink, no scleral icterus, no conjunctival injection Neck: No JVD, trachea midline Chest: Clear to auscultation bilaterally, prolonged expiratory phase CV: Regular rate and rhythm, normal S1 and S2, no murmur, rub, gallop Abdomen: Soft, nontender to palpation, nondistended, active bowel sounds; no rebound, rigidity, or guarding Extremities: No cyanosis, clubbing or edema Neuro: Cranial nerves II through XII are grossly intact without focal deficits; awake alert and oriented x3 Psych: Normal mood and affect Results Laboratory Results: 03/14/17 04:12 03/14/17 04:12 03/14/17 03/14/17 04:12 04:12 WBC 6.2 RBC 3.61 L Hgb 10.8 L Hct 32.3 L MCV 89 MCH 29.9 MCHC 33.4 RDW 14.2 H Plt Count 145 L Seg Neutrophils % 83.6 H Lymphocytes % 9.3 L Monocytes % 7.0 Eosinophils % 0.0 Basophils % 0.1 Absolute Neutrophils 5.2 Absolute Lymphocytes 0.6 Absolute Monocytes 0.4 Absolute Eosinophils 0.0 Absolute Basophils 0.0 Sodium 140.4 Potassium 4.6 Chloride 94 L Carbon Dioxide 42 H* Anion Gap 4 L BUN 16 Creatinine 0.49 L Est GFR ( Amer) > 60 Est GFR (Non-Af Amer) > 60 Glucose 99 Calcium 8.4 03/09/17 08:04 Blood Blood Culture - Final NO GROWTH IN 5 DAYS Impressions: Chest X-Ray 03/11/17 06:00 IMPRESSION: Chronic lung changes with no acute cardiopulmonary disease. Qualifiers PATEINT BEING DISCHARGED WITH ANY OF THE FOLLOWING DIAGNOSIS?: No Plan Time Spent: Less than 30 Minutes
== END 2017-03-14 15:16 | disposition home or self-care (01) | DRG 189 ==
LOC: ER 21:55 → EH 03-09 02:48 → UNDOADMIN 03-09 02:48 → EH 03-09 04:57 → ICU 03-09 09:39 → 3W 03-10 15:44
PROVIDERS: ADMIT Family Medicine; ATTEND Family Medicine
PROC: 5A09557 Assistance with Respiratory Ventilation, Greater than 96 Consecutive Hours, Continuous Positive Airway Pressure (ICD-10-PCS; principal; 2017-03-08)
PROC: 3E0F73Z Introduction of Anti-inflammatory into Respiratory Tract, Via Natural or Artificial Opening (ICD-10-PCS; 2017-03-09)
DX: J96.22 Acute and chronic respiratory failure with hypercapnia (principal); J44.1 Chronic obstructive pulmonary disease with (acute) exacerbation; E88.01 Alpha-1-antitrypsin deficiency; J96.21 Acute and chronic respiratory failure with hypoxia; I10 Essential (primary) hypertension; Z66 Do not resuscitate; I49.8 Other specified cardiac arrhythmias; G43.909 Migraine, unspecified, not intractable, without status migrainosus; K21.9 Gastro-esophageal reflux disease without esophagitis; M19.90 Unspecified osteoarthritis, unspecified site; M62.81 Muscle weakness (generalized); F17.210 Nicotine dependence, cigarettes, uncomplicated; Z79.899 Other long term (current) drug therapy; Z99.81 Dependence on supplemental oxygen; Z87.01 Personal history of pneumonia (recurrent); Z90.710 Acquired absence of both cervix and uterus; Z88.2 Allergy status to sulfonamides; Z88.8 Allergy status to other drugs, medicaments and biological substances; Z82.49 Family history of ischemic heart disease and other diseases of the circulatory system; Z82.5 Family history of asthma and other chronic lower respiratory diseases
CPT/HCPCS: 36415; 36600; 71010; 80048; 80053; 82803; 82962; 83735; 84100; 84134; 84439; 84443; 84484; 85025; 87015; 87040; 87070; 87116; 87205; 87206; 87804; 93005; 93010; 94640; 94660; 94799; 96365; 96366; 96374; 96375; 99285; 99291; J0456; J0692; J1644; J2920; J2930; J3475; J3490; J7030; J7060; J7512; J7620

== ENCOUNTER 2017-07-04 11:29 | Inpatient (IN) | payer MEDICARE, MEDICAID ==
[2017-07-04] MEDS ORDERED: IPRATROPIUM/ALBUTEROL 0.5-2.5 MG/3 ML AMPUL NEB ONE (11:54)
[2017-07-04] MEDS ORDERED: METHYLPREDNISOLONE INJ 125 MG/2 ML SDV IV ONE (11:54)
[2017-07-04] MEDS ORDERED: DOXYCYCLINE HYCLATE INJ 100 MG VIAL IV ONE (11:55)
--- NOTE | 2017-07-04 11:57 | ER Document Report ---
ED Medical Screen (RME) - General Chief Complaint: Breathing Difficulty Stated Complaint: HEADACHE Time Seen by Provider: 07/04/17 11:55 TRAVEL OUTSIDE OF THE [place] IN LAST 30 DAYS: No - HPI Notes: 07/04/17 11:56 History of COPD coming in for chest burning productive sputum fevers and chills - Related Data Allergies/Adverse Reactions: doxepin [Doxepin] Allergy (Verified 07/04/17 11:47) Shortness of Breath, Swelling etodolac [Etodolac] Allergy (Verified 07/04/17 11:47) loratadine [Loratadine] Allergy (Verified 07/04/17 11:47) Shortness of Breath, Swelling meloxicam [Meloxicam] Allergy (Verified 07/04/17 11:47) Sulfa (Sulfonamide Antibiotics) Allergy (Verified 07/04/17 11:47) Shortness of Breath, Swelling Past Medical History - Past Medical History Cardiac Medical History: Reports: Hx Hypertension Denies: Hx Congestive Heart Failure, Hx DVT, Hx Heart Attack, Hx Hypercholesterolemia, Hx Pulmonary Embolism Pulmonary Medical History: Reports: Hx Asthma, Hx Bronchitis, Hx COPD - O2 dependent, 3 L nasal cannula, Hx Pneumonia - Recurrent pseudomonal pneumonia Neurological Medical History: Reports: Hx Migraine. Denies: Hx Seizures Endocrine Medical History: Denies: Hx Diabetes Mellitus Type 1, Hx Diabetes Mellitus Type 2, Hx Hyperthyroidism, Hx Hypothyroidism Renal/ Medical History: Denies: Hx Peritoneal Dialysis GI Medical History: Reports: Hx Gastroesophageal Reflux Disease. Denies: Hx Cirrhosis, Hx Hepatitis Musculoskeltal Medical History: Reports Hx Arthritis, Reports Hx Muscle Weakness Psychiatric Medical History: Denies: Hx Depression Traumatic Medical History: Reports: Hx Pneumothorax - x4 R lung, 2010 when the patient had a right lung bx required a chest tube Infectious Medical History: Denies: Hx Hepatitis Past Surgical History: Reports: Hx Gynecologic Surgery, Hx Hysterectomy, Hx Tonsillectomy, Hx Tubal Ligation - Immunizations Hx Diphtheria, Pertussis, Tetanus Vaccination: Yes Review of Systems - Review of Systems Respiratory: Short of breath, Wheezing Physical Exam - Vital signs Vitals: Temp Pulse Resp BP Pulse Ox 97.5 F 89 20 106/66 100 07/04/17 11:43 07/04/17 11:43 07/04/17 11:43 07/04/17 11:43 07/04/17 11:43 - Respiratory Chest status: Tender Breath sounds: Rhonchi, Wheezing Course - Vital Signs Vital signs: Temp Pulse Resp BP Pulse Ox 97.5 F 89 20 106/66 100 07/04/17 11:43 07/04/17 11:43 07/04/17 11:43 07/04/17 11:43 07/04/17 11:43
[2017-07-04 12:41] LABS: ABSOLUTE EOSINOPHILS # (AUTO) 0.1 10^3/uL (0.0-0.6); ABSOLUTE MONOCYTES (AUTO) 0.4 10^3/uL (0.1-1.4); ABSOLUTE NEUT (AUTO) 9.9 10^3/uL (1.7-8.2); BASOPHILS % (AUTO) 0.4 % (0-2); EOSINOPHILS % (AUTO) 0.9 % (0-6); HEMATOCRIT 39.9 % (36.0-47.0); HEMOGLOBIN 13.3 g/dL (12.0-15.5); LYMPHOCYTES % (AUTO) 9.1 % (13-45); MEAN CORPUSCULAR HEMOGLOBIN 30.5 pg (27.0-33.4); MEAN CORPUSCULAR HGB CONC 33.2 g/dL (32.0-36.0); MEAN CORPUSCULAR VOLUME 92 fl (80-97); MONOCYTES % (AUTO) 3.9 % (3-13); RED BLOOD COUNT 4.35 10^6/uL (3.72-5.28); SEGMENTED NEUTROPHILS % (AUTO) 85.7 % (42-78); VENOUS BLOOD BASE EXCESS 5.6 mmol/L; VENOUS BLOOD HCO3 35.6 mmol/L (20-32); VENOUS BLOOD PH 7.28 (7.30-7.42); WHITE BLOOD COUNT 11.5 10^3/uL (4.0-10.5)
[2017-07-04 12:43] LABS: PROTHROMBIN TIME 12.3 SEC (11.4-15.4)
--- NOTE | 2017-07-04 12:58 | RADIOLOGY REPORT (SQ) ---
EXAM DESCRIPTION: CHEST PA/LAT COMPLETED DATE/TIME: 07/04/2017 12:49 pm REASON FOR STUDY: fever copd COMPARISON: 03/11/2017. NUMBER OF VIEWS: Two view. TECHNIQUE: Frontal and lateral radiographic views of the chest acquired. LIMITATIONS: None. FINDINGS: LUNGS AND PLEURA: Extensive chronic scarring. No focal infiltrates, masses or pneumothora x. No pleural effusion. Attenuated blood vessels and flattened harini-diaphragms. MEDIASTINUM AND HILAR STRUCTURES: No masses. No contour abnormalities. HEART AND VASCULAR STRUCTURES: Heart normal in size and contour. No evidence for failure. BONES: No acute findings. HARDWARE: None in the chest. OTHER: No other significant finding. IMPRESSION: COPD. CHRONIC SCARRING. NO ACUTE RADIOGRAPHIC FINDING IN THE CHEST. TECHNICAL DOCUMENTATION: JOB ID: [id number]- All Rights Reserved
[2017-07-04 13:09] LABS: ALANINE AMINOTRANSFERASE 18 U/L (9-52); ALBUMIN 4.6 g/dL (3.5-5.0); ALKALINE PHOSPHATASE 69 U/L (38-126); ANION GAP 13 (5-19); ASPARTATE AMINO TRANSFERASE 15 U/L (14-36); BILIRUBIN,DIRECT 0.4 mg/dL (0.0-0.4); BILIRUBIN,TOTAL 0.9 mg/dL (0.2-1.3); BLOOD UREA NITROGEN 9 mg/dL (7-20); CALCIUM 9.9 mg/dL (8.4-10.2); CARBON DIOXIDE 35 mmol/L (22-30); CHLORIDE 97 mmol/L (98-107); CREATINE KINASE 68 U/L (30-135); CREATININE RESULT 0.63 mg/dL (0.52-1.25); GLUCOSE 93 mg/dL (75-110); LIPASE 65.2 U/L (23-300); POTASSIUM 4.7 mmol/L (3.6-5.0); SODIUM 144.5 mmol/L (137-145); TOTAL PROTEIN 6.8 g/dL (6.3-8.2)
[2017-07-04 13:21] LABS: TROPONIN I < 0.012 ng/mL
--- NOTE | 2017-07-04 14:44 | ER Document Report ---
ED General - General Chief Complaint: Breathing Difficulty Stated Complaint: HEADACHE Time Seen by Provider: 07/04/17 11:55 Mode of Arrival: Ambulatory Information source: Patient Notes: 56-year-old female history of alpha-1 antitrypsin COPD presents with complaints of difficulty breathing. Patient notes she just started smoking over the past week after she had quit. She denies any productive cough denies any fevers or chills TRAVEL OUTSIDE OF THE [place] IN LAST 30 DAYS: No - HPI Onset: Last week Onset/Duration: Persistent Quality of pain: No pain Severity: Moderate Pain Level: Denies Associated symptoms: Shortness of breath Exacerbated by: Walking, Coughing Relieved by: Denies Similar symptoms previously: Yes Recently seen / treated by doctor: Yes - Related Data Allergies/Adverse Reactions: doxepin [Doxepin] Allergy (Verified 07/04/17 11:47) Shortness of Breath, Swelling etodolac [Etodolac] Allergy (Verified 07/04/17 11:47) loratadine [Loratadine] Allergy (Verified 07/04/17 11:47) Shortness of Breath, Swelling meloxicam [Meloxicam] Allergy (Verified 07/04/17 11:47) Sulfa (Sulfonamide Antibiotics) Allergy (Verified 07/04/17 11:47) Shortness of Breath, Swelling Past Medical History - Social History Smoking Status: Current Every Day Smoker Cigarette use (# per day): Yes Chew tobacco use (# tins/day): No Smoking Education Provided: No Frequency of alcohol use: None Drug Abuse: None Family History: Reviewed & Not Pertinent, Hyperlipidemia, Hypertension Patient has suicidal ideation: No Patient has homicidal ideation: No - Past Medical History Cardiac Medical History: Reports: Hx Hypertension Denies: Hx Congestive Heart Failure, Hx DVT, Hx Heart Attack, Hx Hypercholesterolemia, Hx Pulmonary Embolism Pulmonary Medical History: Reports: Hx Asthma, Hx Bronchitis, Hx COPD - O2 dependent, 3 L nasal cannula, Hx Pneumonia - Recurrent pseudomonal pneumonia Neurological Medical History: Reports: Hx Migraine. Denies: Hx Seizures Endocrine Medical History: Denies: Hx Diabetes Mellitus Type 1, Hx Diabetes Mellitus Type 2, Hx Hyperthyroidism, Hx Hypothyroidism Renal/ Medical History: Denies: Hx Peritoneal Dialysis GI Medical History: Reports: Hx Gastroesophageal Reflux Disease. Denies: Hx Cirrhosis, Hx Hepatitis Musculoskeltal Medical History: Reports Hx Arthritis, Reports Hx Muscle Weakness Psychiatric Medical History: Denies: Hx Depression Traumatic Medical History: Reports: Hx Pneumothorax - x4 R lung, 2010 when the patient had a right lung bx required a chest tube Infectious Medical History: Denies: Hx Hepatitis Past Surgical History: Reports: Hx Gynecologic Surgery, Hx Hysterectomy, Hx Tonsillectomy, Hx Tubal Ligation - Immunizations Hx Diphtheria, Pertussis, Tetanus Vaccination: Yes Hx Pneumococcal Vaccination: 04/25/09 Review of Systems - Review of Systems Notes: REVIEW OF SYSTEMS: CONSTITUTIONAL : Denies fever, chills, or sweats. Denies recent illness. EENT: Denies eye, ear, throat, or mouth pain or symptoms. Denies nasal or sinus congestion or discharge. Denies throat, tongue, or mouth swelling or difficulty swallowing. CARDIOVASCULAR: Denies chest pain. Denies palpitations or racing or irregular heart beat. Denies ankle edema. RESPIRATORY: Admits to shortness breath difficulty breathing GASTROINTESTINAL: Denies abdominal pain or distention. Denies nausea, vomiting , or diarrhea. Denies blood in vomitus, stools, or per rectum. Denies black, tarry stools. Denies constipation. GENITOURINARY: Denies difficulty urinating, painful urination, burning, frequency, blood in urine, or discharge. FEMALE GENITOURINARY: Denies vaginal bleeding, heavy or abnormal periods, irregular periods. Denies vaginal discharge or odor. MUSCULOSKELETAL: Denies back or neck pain or stiffness. Denies joint pain or swelling. SKIN: Denies rash, lesions or sores. HEMATOLOGIC : Denies easy bruising or bleeding. LYMPHATIC: Denies swollen, enlarged glands. NEUROLOGICAL: Denies confusion or altered mental status. Denies passing out or loss of consciousness. Denies dizziness or lightheadedness. Denies headache. Denies weakness or paralysis or loss of use of either side. Denies problems with gait or speech. Denies sensory loss, numbness, or tingling. Denies seizures. PSYCHIATRIC: Denies anxiety or stress. Denies depression, suicidal ideation, or homicidal ideation. ALL OTHER SYSTEMS REVIEWED AND NEGATIVE. PHYSICAL EXAMINATION: GENERAL: Well-appearing, well-nourished and in no acute distress. HEAD: Atraumatic, normocephalic. EYES: Pupils equal round and reactive to light, extraocular movements intact, conjunctiva are normal. ENT: Nares patent, oropharynx clear without exudates. Moist mucous membranes. NECK: Normal range of motion, supple without lymphadenopathy LUNGS: Breath sounds clear to auscultation bilaterally and equal. No wheezes rales or rhonchi. HEART: Coarse wheezing all throughout mild respiratory distress immediately placed on BiPAP ABDOMEN: Soft, nontender, nondistended abdomen. No guarding, no rebound. No masses appreciated. Female : deferred Musculoskeletal: Normal range of motion, no pitting or edema. No cyanosis. NEUROLOGICAL: Cranial nerves grossly intact. Normal speech, normal gait. Normal sensory, motor exams PSYCH: Normal mood, normal affect. SKIN: Warm, Dry, normal turgor, no rashes or lesions noted. Dictation was performed using [employer] voice recognition software Physical Exam - Vital signs Vitals: Temp Pulse Resp BP Pulse Ox 97.5 F 89 20 106/66 100 07/04/17 11:43 07/04/17 11:43 07/04/17 11:43 07/04/17 11:43 07/04/17 11:43 Course - Re-evaluation Re-evalutation: 07/04/17 14:50 Patient's CO2 was noted to be elevated however looking back at her previous visits this is about where she is located. Patient was immediately placed on BiPAP and has noted significant improvement. I will observe her in the hospital due to her concerns of respiratory distress - Vital Signs Vital signs: Temp Pulse Resp BP Pulse Ox 97.5 F 89 27 H 106/66 100 07/04/17 11:43 07/04/17 11:43 07/04/17 13:25 07/04/17 11:43 07/04/17 13:25 - Laboratory Result Diagrams: 07/04/17 12:20 07/04/17 12:20 Laboratory results interpreted by me: 07/04/17 07/04/17 07/04/17 12:20 12:20 12:20 WBC 11.5 H Plt Count 143 L Seg Neutrophils % 85.7 H Lymphocytes % 9.1 L Absolute Neutrophils 9.9 H VBG pH 7.28 L VBG pCO2 78.0 H* VBG HCO3 35.6 H Chloride 97 L Carbon Dioxide 35 H - Diagnostic Test Radiology reviewed: Image reviewed, Reports reviewed - EKG Interpretation by Me EKG shows normal: Sinus rhythm, [place], Intervals, QRS Complexes Critical Care Note - Critical Care Note Total time excluding time spent on procedures (mins): 31 Comments: 31 minutes of critical care time spent in direct contact evaluating and reevaluating the patient, treating symptoms, reviewing labs and studies and speaking with family and consultants excluding any procedures Discharge - Discharge Clinical Impression: Tobacco abuse, Respiratory distress, COPD with acute exacerbation, Alpha-1- antitrypsin deficiency, DNI (do not intubate), CO2 retention Condition: Fair Disposition: ADMITTED INPATIENT Admitting Provider: Hospitalist Unit Admitted: [facility]
[2017-07-04] MEDS ORDERED: NORMAL SALINE 1000 ML 1,000 ML IV PRN (14:52)
[2017-07-04] MEDS ORDERED: GUAIFENESIN SYRP 200 MG/10 ML UDC PO PRN (14:52)
[2017-07-04] MEDS: IPRATROPIUM/ALBUTEROL 0.5-2.5 MG/3 ML AMPUL NEB SCH ×2 (15:42→20:05)
[2017-07-04] MEDS ORDERED: ENOXAPARIN SODIUM INJ 40 MG/0.4 ML DISP.SYRIN SUBCUT ONE ×2 (16:00→19:44)
[2017-07-04] MEDS ORDERED: CEFEPIME 2 GM/D5W RTU 2 GM/50 ML RTUPB IV SCH (16:00)
--- NOTE | 2017-07-04 16:53 | PDOC H&P ---
History of Present Illness Admission Date/PCP: 07/04/17 Dr. Tuttle History of Present Illness: AUDIE KIMBLE is a 56 year old female with past medical history of alpha-1 antitrypsin deficiency, COPD which is oxygen dependent who presents with worsening shortness of breath. She reports that she has been using her trilogy at home. She reports that it does give her gas and she began vomiting for the last several days from this. Patient reports that starting last Thursday she began feeling ill. She had a loss of family member. She reports subjective fevers and chills, green mucus, but no chest pain. Patient reports no new medications and last took steroids 1 week ago. She is referred to the hospitalist service for exacerbation of COPD. Past Medical History Cardiac Medical History: Reports: Hypertension Denies: Congestive Heart Failure, DVT, Myocardial Infarction, Hyperlipidema, Pulmonary Embolism Pulmonary Medical History: Reports: Asthma, Bronchitis, Chronic Obstructive Pulmonary Disease (COPD) - O2 dependent, 3 L nasal cannula, Pneumonia - Recurrent pseudomonal pneumonia Neurological Medical History: Reports: Migraine Denies: Seizures Endocrine Medical History: Denies: Diabetes Mellitus Type 1, Diabetes Mellitus Type 2, Hyperthyroidism, Hypothyroidism GI Medical History: Reports: Gastroesophageal Reflux Disease Denies: Cirrhosis, Hepatitis Musculoskeltal Medical History: Reports: Arthritis Psychiatric Medical History: Denies: Depression Traumatic Medical History: Reports: Pneumothorax - x4 R lung, 2010 when the patient had a right lung bx required a chest tube Past Surgical History Past Surgical History: Reports: Hysterectomy, Tonsillectomy, Tubal Ligation Social History Smoking Status: Current Every Day Smoker Frequency of Alcohol Use: None Hx Recreational Drug Use: No Drugs: None Hx Prescription Drug Abuse: No - Advance Directive Resuscitation Status: Do Not Intubate Surrogate healthcare decision maker:: Family History Family History: Hyperlipidemia, Hypertension Parental Family History Reviewed: Yes Children Family History Reviewed: Yes Sibling(s) Family History Reviewed.: Yes Medication/Allergy Home Medications: Albuterol Sulfate [Ventolin 0.083% Neb 2.5 mg/3 mL Ampul] 2.5 mg PO Q4HP PRN Budesonide/Formoterol Fumarate [Symbicort HFA 160-4.5 mcg Inhaler 6 gm] 1 puff IH Q12 03/09/17 Fluticasone Propionate [Flonase Nasal [place] 50 Mcg/[place] 16 gm] 1 spray NASL Q12 03/09/17 Ipratropium [place] [Atrovent 0.02% Neb 0.5 mg/2.5 ml Ampul] 0.5 mg NEB Q4HP PRN 03/09/17 Levalbuterol Tartrate [Xopenex Hfa] 2 puff IH Q4HP PRN 03/09/17 Montelukast Sodium [Singulair 10 mg Tablet] 10 mg PO DAILY 03/09/17 Roflumilast [Daliresp 500 mcg Tablet] 500 mcg PO DAILY 03/09/17 Tiotropium [place] [Spiriva Handihaler 5 Cap/Kit (18 Mcg/Cap)] 1 puff IN DAILY 03/09/17 Ropinirole HCl 2 tab PO QHS 03/11/17 Aspirin [Adult Low Dose Aspirin EC] 81 mg PO DAILY 07/04/17 Ergocalciferol (Vitamin D2) [Drisdol 50,000 unit (1.25MG) Capsule] 50,000 unit PO [id number] 07/04/17 Levocetirizine Dihydrochloride [Xyzal] 5 mg PO QHS 07/04/17 Ranitidine HCl [Zantac 150 mg Tablet] 150 mg PO QHS 07/04/17 Roflumilast [Daliresp 500 mcg Tablet] 500 mcg PO QAM 07/04/17 Allergies/Adverse Reactions: doxepin [Doxepin] Allergy (Verified 07/04/17 11:47) Shortness of Breath, Swelling etodolac [Etodolac] Allergy (Verified 07/04/17 11:47) loratadine [Loratadine] Allergy (Verified 07/04/17 11:47) Shortness of Breath, Swelling meloxicam [Meloxicam] Allergy (Verified 07/04/17 11:47) Sulfa (Sulfonamide Antibiotics) Allergy (Verified 07/04/17 11:47) Shortness of Breath, Swelling Review of Systems Constitutional: PRESENT: chills, fever(s). ABSENT: headache(s), weight gain, weight loss Eyes: ABSENT: visual disturbances Ears: ABSENT: hearing changes Cardiovascular: ABSENT: chest pain, dyspnea on exertion, edema, orthropnea, palpitations Respiratory: PRESENT: cough, dyspnea, sputum. ABSENT: hemoptysis Gastrointestinal: PRESENT: diarrhea, nausea, vomiting. ABSENT: abdominal pain, constipation, hematemesis, hematochezia, melena Genitourinary: ABSENT: dysuria, hematuria Musculoskeletal: ABSENT: joint swelling Integumentary: ABSENT: rash, wounds Neurological: ABSENT: abnormal gait, abnormal speech, confusion, dizziness, focal weakness, syncope Psychiatric: PRESENT: anxiety, depression. ABSENT: homidical ideation, suicidal ideation Endocrine: ABSENT: cold intolerance, heat intolerance, polydipsia, polyuria Hematologic/Lymphatic: ABSENT: easy bleeding, easy bruising Physical Exam Vital Signs: Temp Pulse Resp BP Pulse Ox 97.5 F 71 20 113/77 99 07/04/17 11:43 07/04/17 14:56 07/04/17 14:56 07/04/17 14:56 07/04/17 14:56 Intake & Output 07/03/17 07/04/17 07/05/17 06:59 06:59 06:59 Weight 60.8 kg General appearance: PRESENT: well-developed, well-nourished, other - moderate Head exam: PRESENT: atraumatic, normocephalic, other - cushingouid Eye exam: PRESENT: conjunctiva pink, EOMI, PERRLA. ABSENT: scleral icterus Ear exam: PRESENT: normal external ear exam Mouth exam: PRESENT: moist, tongue midline Neck exam: ABSENT: JVD, lymphadenopathy, thyromegaly, tracheal deviation Respiratory exam: PRESENT: accessory muscle use, prolonged expiratory phas, retraction - mild supraclavicular, rhonchi - occasional, symmetrical, tachypnea , unlabored, wheezes - bilateral. ABSENT: crackles, rales, stridor Cardiovascular exam: PRESENT: RRR, +S1, +S2. ABSENT: diastolic murmur, rubs, systolic murmur Pulses: PRESENT: normal dorsalis pedis pul Vascular exam: PRESENT: normal capillary refill GI/Abdominal exam: PRESENT: normal bowel sounds, soft. ABSENT: distended, firm , guarding, mass, Campbell's sign, organolmegaly, rebound, rigid, tenderness Rectal exam: PRESENT: deferred Extremities exam: PRESENT: clubbing, full ROM. ABSENT: calf tenderness, pedal edema Neurological exam: PRESENT: alert, awake, oriented to person, oriented to place , oriented to time, oriented to situation, CN II-XII grossly intact. ABSENT: motor sensory deficit Psychiatric exam: PRESENT: appropriate affect, normal mood. ABSENT: homicidal ideation, suicidal ideation Skin exam: PRESENT: dry, intact, warm. ABSENT: cyanosis, rash Results Laboratory Results: 07/04/17 12:20 07/04/17 12:20 07/04/17 07/04/17 07/04/17 12:20 12:20 12:20 WBC 11.5 H RBC 4.35 Hgb 13.3 Hct 39.9 MCV 92 MCH 30.5 MCHC 33.2 RDW 14.0 Plt Count 143 L Seg Neutrophils % 85.7 H Lymphocytes % 9.1 L Monocytes % 3.9 Eosinophils % 0.9 Basophils % 0.4 Absolute Neutrophils 9.9 H Absolute Lymphocytes 1.0 Absolute Monocytes 0.4 Absolute Eosinophils 0.1 Absolute Basophils 0.0 VBG pH 7.28 L VBG pCO2 78.0 H* VBG HCO3 35.6 H VBG Base Excess 5.6 Sodium 144.5 Potassium 4.7 Chloride 97 L Carbon Dioxide 35 H Anion Gap 13 BUN 9 Creatinine 0.63 Est GFR ( Amer) > 60 Est GFR (Non-Af Amer) > 60 Glucose 93 Calcium 9.9 Magnesium 2.0 Total Bilirubin 0.9 AST 15 ALT 18 Alkaline Phosphatase 69 Total Protein 6.8 Albumin 4.6 Lipase 65.2 07/04/17 07/04/17 12:20 12:20 Creatine Kinase 68 CK-MB (CK-2) 1.70 Troponin I < 0.012 Impressions: Chest X-Ray 07/04/17 11:53 IMPRESSION: COPD. CHRONIC SCARRING. NO ACUTE RADIOGRAPHIC FINDING IN THE CHEST. Assessment & Plan - Diagnosis (1) COPD with acute exacerbation Is this a current diagnosis for this admission?: Yes Plan: Continue patient on BiPAP and admitted to [facility]. Place patient on scheduled nebulized treatments and IV Solu-Medrol. She reports that her last use of prednisone was approximately 1 week ago. Cover patient empirically with antipseudomonal coverage as she does have a history of this and reports purulent sputum. (2) Ovxaz-[id number] deficiency Is this a current diagnosis for this admission?: Yes (3) Tobacco abuse Is this a current diagnosis for this admission?: Yes Plan: Encouraged to stop. Offered nicotine replacement (4) Acute and chronic respiratory failure with hypercapnia Is this a current diagnosis for this admission?: Yes (5) Acute respiratory failure with hypoxia Is this a current diagnosis for this admission?: Yes (6) Diarrhea Qualifiers: Diarrhea type: functional diarrhea Qualified Code(s): K59.1 - Functional diarrhea Is this a current diagnosis for this admission?: Yes Plan: Place patient on Bacid and check a C. difficile. This is likely secondary to her Roflumilast (7) DVT prophylaxis Is this a current diagnosis for this admission?: Yes (8) DNI (do not intubate) Is this a current diagnosis for this admission?: Yes - Time Time Spent: 50 to 70 Minutes - Inpatient Certification Based on my medical assessment, after consideration of the patient's comorbidities, presenting symptoms, or acuity I expect that the services needed warrant INPATIENT care.: Yes I certify that my determination is in accordance with my understanding of Medicare's requirements for reasonable and necessary INPATIENT services [42 CFR 412.3e].: Yes Medical Necessity: Need for Nebulizer Therapy and Monitoring of Response, Need for IV Antibiotics Post Hospital Care: D/C [employer] Worker Documentation
[2017-07-04] MEDS: METHYLPREDNISOLONE INJ 125 MG/2 ML SDV IV SCH ×2 (19:43→23:28)
[2017-07-04] MEDS: LACTOBACILLUS ACIDOPHILUS 250 MG TAB PO SCH (19:43)
[2017-07-04] MEDS: LEVOFLOXACIN 750 MG/D5W RTU 750 MG/150 ML RTUPB IV SCH (19:44)
[2017-07-04] MEDS: ROPINIROLE HCL 1 MG TABLET PO SCH (21:03)
[2017-07-04] MEDS: GUAIFENESIN 600 MG TABLET.SA PO SCH (21:04)
[2017-07-04] MEDS: FAMOTIDINE 20 MG TABLET PO SCH (21:04)
[2017-07-04] MEDS ORDERED: FLUTICASONE NASAL SPRAY 50 MCG/SPRY 120 SPRAY/16 GM ONE (21:11)
[2017-07-04] MEDS ORDERED: CETIRIZINE HCL ORAL SOLN 5 MG/5 ML UDCUP ONE (21:12)
[2017-07-04] MEDS ORDERED: BUDESONIDE/FORMOTEROL 160-4.5 MCG 60 PUFF/6 GM MDI IH ONE (21:13)
[2017-07-04] MEDS: FLUTICASONE NASAL SPRAY 50 MCG/SPRY 120 SPRAY/16 GM NASL SCH (21:49)
[2017-07-04] MEDS: BUDESONIDE/FORMOTEROL 160-4.5 MCG 60 PUFF/6 GM MDI IH SCH (21:50)
[2017-07-04] MEDS: CETIRIZINE 5 MG TABLET PO SCH (21:50)
[2017-07-04] MEDS ORDERED: (PENDING PHARMACY ID) (Ranitidine Hcl [Zantac 150 Mg Tablet] 150 MG) PO SCH (22:00)
--- NOTE | 2017-07-04 22:02 | EKG REPORT ---
SEVERITY:- ABNORMAL ECG - SINUS RHYTHM BORDERLINE RIGHT AXIS DEVIATION CONSIDER LEFT VENTRICULAR HYPERTROPHY : Confirmed by: Marcela Lombardo 04-Jul-2017 22:02:08
[2017-07-05 04:51] LABS: ABSOLUTE LYMPHOCYTES (AUTO) 0.3 10^3/uL (0.5-4.7); ABSOLUTE NEUT (AUTO) 4.5 10^3/uL (1.7-8.2); BASOPHILS % (AUTO) 0.1 % (0-2); HEMATOCRIT 34.6 % (36.0-47.0); HEMOGLOBIN 12.2 g/dL (12.0-15.5); LYMPHOCYTES % (AUTO) 5.9 % (13-45); MEAN CORPUSCULAR HEMOGLOBIN 31.4 pg (27.0-33.4); MEAN CORPUSCULAR HGB CONC 35.2 g/dL (32.0-36.0); MEAN CORPUSCULAR VOLUME 89 fl (80-97); MONOCYTES % (AUTO) 0.7 % (3-13); RED BLOOD COUNT 3.89 10^6/uL (3.72-5.28); RED CELL DISTRIBUTION WIDTH 13.7 % (11.5-14.0); SEGMENTED NEUTROPHILS % (AUTO) 93.3 % (42-78); WHITE BLOOD COUNT 4.8 10^3/uL (4.0-10.5)
[2017-07-05 05:05] LABS: ANION GAP 9 (5-19); BLOOD UREA NITROGEN 12 mg/dL (7-20); CALCIUM 9.5 mg/dL (8.4-10.2); CARBON DIOXIDE 30 mmol/L (22-30); CHLORIDE 100 mmol/L (98-107); CREATININE RESULT 0.59 mg/dL (0.52-1.25); GLUCOSE 128 mg/dL (75-110); POTASSIUM 4.8 mmol/L (3.6-5.0); SODIUM 138.9 mmol/L (137-145)
[2017-07-05] MEDS: CEFEPIME 2 GM/D5W RTU 2 GM/50 ML RTUPB IV SCH ×2 (06:39→17:37)
[2017-07-05] MEDS: METHYLPREDNISOLONE INJ 125 MG/2 ML SDV IV SCH ×3 (06:39→21:54)
[2017-07-05] MEDS: IPRATROPIUM/ALBUTEROL 0.5-2.5 MG/3 ML AMPUL NEB SCH ×4 (08:07→19:38)
[2017-07-05] MEDS: ROFLUMILAST 500 MCG TABLET PO SCH (08:38)
[2017-07-05] MEDS ORDERED: ENOXAPARIN SODIUM INJ 30 MG/0.3 ML DISP.SYRIN SUBCUT SCH (10:00)
[2017-07-05] MEDS: FLUTICASONE NASAL SPRAY 50 MCG/SPRY 120 SPRAY/16 GM NASL SCH ×2 (10:37→21:53)
[2017-07-05] MEDS: ASPIRIN 81 MG TABLET, ENT COATED PO SCH (10:38)
[2017-07-05] MEDS: BUDESONIDE/FORMOTEROL 160-4.5 MCG 60 PUFF/6 GM MDI IH SCH ×2 (10:38→21:53)
[2017-07-05] MEDS: MONTELUKAST SODIUM 10 MG TABLET PO SCH (10:38)
[2017-07-05] MEDS: LACTOBACILLUS ACIDOPHILUS 250 MG TAB PO SCH ×2 (10:39→17:36)
[2017-07-05] MEDS: FAMOTIDINE 20 MG TABLET PO SCH ×2 (10:39→21:54)
[2017-07-05] MEDS: GUAIFENESIN 600 MG TABLET.SA PO SCH ×2 (10:39→21:54)
[2017-07-05] MEDS: ENOXAPARIN SODIUM INJ 40 MG/0.4 ML DISP.SYRIN SUBCUT SCH (10:40)
--- NOTE | 2017-07-05 15:02 | PDOC PROGRESS REPORT ---
Subjective Progress Note for:: 07/05/17 Subjective:: Patient reports her shortness of breath is significantly improved today She has no new complaints. Patient denies chest pain, abdominal pain, nausea, vomiting, fevers, chills, diarrhea, constipation, headache, new onset weakness. Physical Exam Vital Signs: Temp Pulse Resp BP Pulse Ox 97.4 F 103 H 28 H 118/83 99 07/05/17 03:09 07/05/17 03:09 07/05/17 04:05 07/05/17 03:09 07/05/17 03:09 Intake & Output 07/04/17 07/05/17 07/06/17 06:59 06:59 06:59 Intake Total 1025 Output Total 0 Balance 1025 Weight 59.1 kg Exam: General: Cushingoid, Awake alert and oriented x3, mild-moderate respiratory distress, modified tripod HEENT: AT/NC, PERRL, EOMI, oropharynx is moist, pink, no scleral icterus, no conjunctival injection Neck: No JVD, trachea midline Chest: Prolonged expiratory phase, poor air excursion, Clear to auscultation bilaterally, no wheezes rhonchi or rales CV: Regular rate and rhythm, normal S1 and S2, no murmur, rub, or gallop Abdomen: Soft, nontender to palpation, nondistended, active bowel sounds; no rebound, rigidity, or guarding Extremities: No cyanosis, clubbing or edema Neuro: Cranial nerves II through XII are grossly intact without focal deficits; awake alert and oriented x3 Psych: Normal mood and affect Results Laboratory Results: 07/05/17 04:23 07/05/17 04:23 07/05/17 07/05/17 04:23 04:23 WBC 4.8 RBC 3.89 Hgb 12.2 Hct 34.6 L MCV 89 MCH 31.4 MCHC 35.2 RDW 13.7 Plt Count 112 L Seg Neutrophils % 93.3 H Lymphocytes % 5.9 L Monocytes % 0.7 L Eosinophils % 0.0 Basophils % 0.1 Absolute Neutrophils 4.5 Absolute Lymphocytes 0.3 L Absolute Monocytes 0.0 L Absolute Eosinophils 0.0 Absolute Basophils 0.0 Sodium 138.9 Potassium 4.8 Chloride 100 Carbon Dioxide 30 Anion Gap 9 BUN 12 Creatinine 0.59 Est GFR ( Amer) > 60 Est GFR (Non-Af Amer) > 60 Glucose 128 H Calcium 9.5 07/04/17 16:00 Troponin I < 0.012 Impressions: Chest X-Ray 07/04/17 11:53 IMPRESSION: COPD. CHRONIC SCARRING. NO ACUTE RADIOGRAPHIC FINDING IN THE CHEST. Assessment & Plan - Diagnosis (1) COPD with acute exacerbation Is this a current diagnosis for this admission?: Yes Plan: Attempt to decrease IV Solu-Medrol to 125mg IV q8. Sputum culture pending and there is concern for lower respiratory infection. Cover patient empirically with antipseudomonal coverage as she does have a history of this and reports purulent sputum. Continue Levaquin as patient also has a history of stenotrophomonas. (2) Fnvij-2-ocfkykgqkfo deficiency Is this a current diagnosis for this admission?: Yes (3) Tobacco abuse Is this a current diagnosis for this admission?: Yes Plan: Encouraged to stop. Offered nicotine replacement (4) Acute and chronic respiratory failure with hypercapnia Is this a current diagnosis for this admission?: Yes Plan: Continue oxygen and BiPAP if needed. Patient uses trilogy at home at night. Continue BiPAP overnight patient may use home trilogy (5) Acute respiratory failure with hypoxia Is this a current diagnosis for this admission?: Yes (6) Diarrhea Qualifiers: Diarrhea type: functional diarrhea Qualified Code(s): K59.1 - Functional diarrhea Is this a current diagnosis for this admission?: Yes Plan: Place patient on Bacid and check a C. difficile. This is likely secondary to her Roflumilast. She reports her diarrhea is already improved with Bacid. (7) DVT prophylaxis Is this a current diagnosis for this admission?: Yes (8) DNI (do not intubate) Is this a current diagnosis for this admission?: Yes - Time Time Spent with patient: 25-34 minutes Medications reviewed and adjusted accordingly: Yes
[2017-07-05] MEDS: ACETAMINOPHEN 325 MG TABLET PO PRN (17:35)
[2017-07-05] MEDS: LEVOFLOXACIN 750 MG/D5W RTU 750 MG/150 ML RTUPB IV SCH (17:38)
[2017-07-05] MEDS: ROPINIROLE HCL 1 MG TABLET PO SCH (21:54)
[2017-07-05] MEDS: CETIRIZINE 5 MG TABLET PO SCH (21:55)
[2017-07-06] MEDS: LEVALBUTEROL HCL NEB 1.25 MG/3 ML AMPUL NEB PRN (04:30)
[2017-07-06 05:48] LABS: HEMATOCRIT 33.7 % (36.0-47.0); HEMOGLOBIN 11.8 g/dL (12.0-15.5); HGB HCT DIFFERENCE 1.7; MEAN CORPUSCULAR HEMOGLOBIN 31.5 pg (27.0-33.4); MEAN CORPUSCULAR HGB CONC 35.1 g/dL (32.0-36.0); MEAN CORPUSCULAR VOLUME 90 fl (80-97); RED BLOOD COUNT 3.76 10^6/uL (3.72-5.28); RED CELL DISTRIBUTION WIDTH 13.7 % (11.5-14.0); WHITE BLOOD COUNT 7.8 10^3/uL (4.0-10.5)
[2017-07-06 06:03] LABS: ANION GAP 9 (5-19); BLOOD UREA NITROGEN 19 mg/dL (7-20); CALCIUM 9.6 mg/dL (8.4-10.2); CARBON DIOXIDE 30 mmol/L (22-30); CHLORIDE 102 mmol/L (98-107); CREATININE RESULT 0.59 mg/dL (0.52-1.25); GLUCOSE 119 mg/dL (75-110); POTASSIUM 4.4 mmol/L (3.6-5.0); SODIUM 140.6 mmol/L (137-145)
[2017-07-06] MEDS: CEFEPIME 2 GM/D5W RTU 2 GM/50 ML RTUPB IV SCH (06:13)
[2017-07-06] MEDS: METHYLPREDNISOLONE INJ 125 MG/2 ML SDV IV SCH ×3 (06:13→17:28)
[2017-07-06 06:21] LABS: BASOPHILS % (MANUAL) 0 % (0-2); EOSINOPHILS % (MANUAL) 0 % (0-6); LYMPHOCYTES % (MANUAL) 7 % (13-45); TOTAL CELLS COUNTED 100
[2017-07-06 06:22] LABS: RBC MORPHOLOGY COMMENT NORMO-CYTIC/CHROMIC; TOXIC GRANULATION SLIGHT
[2017-07-06] MEDS: ROFLUMILAST 500 MCG TABLET PO SCH (07:53)
[2017-07-06] MEDS: IPRATROPIUM/ALBUTEROL 0.5-2.5 MG/3 ML AMPUL NEB SCH ×4 (08:27→20:29)
[2017-07-06] MEDS ORDERED: FUROSEMIDE INJ/PF 20 MG/2 ML SDV IV ONE (09:45)
[2017-07-06] MEDS: BUDESONIDE/FORMOTEROL 160-4.5 MCG 60 PUFF/6 GM MDI IH SCH ×2 (11:35→21:07)
[2017-07-06] MEDS: FLUTICASONE NASAL SPRAY 50 MCG/SPRY 120 SPRAY/16 GM NASL SCH ×2 (11:35→21:08)
[2017-07-06] MEDS: ENOXAPARIN SODIUM INJ 40 MG/0.4 ML DISP.SYRIN SUBCUT SCH (11:35)
[2017-07-06] MEDS: GUAIFENESIN 600 MG TABLET.SA PO SCH ×2 (11:36→21:08)
[2017-07-06] MEDS: ASPIRIN 81 MG TABLET, ENT COATED PO SCH (11:37)
[2017-07-06] MEDS: MONTELUKAST SODIUM 10 MG TABLET PO SCH (11:37)
[2017-07-06] MEDS: FAMOTIDINE 20 MG TABLET PO SCH ×2 (11:37→21:08)
[2017-07-06] MEDS: LACTOBACILLUS ACIDOPHILUS 250 MG TAB PO SCH ×2 (11:37→17:28)
[2017-07-06] MEDS: ACETAMINOPHEN 325 MG TABLET PO PRN (14:19)
--- NOTE | 2017-07-06 16:30 | PDOC PROGRESS REPORT ---
Subjective Progress Note for:: 07/06/17 Subjective:: Patient reports her shortness of breath has not improved and is slightly worse after attempting to decrease her Solu-Medrol to every 8 yesterday. Patient denies chest pain, abdominal pain, nausea, vomiting, fevers, chills, diarrhea, constipation, headache, new onset weakness. Physical Exam Vital Signs: Temp Pulse Resp BP Pulse Ox 97.9 F 91 28 H 119/64 100 07/06/17 03:19 07/06/17 04:30 07/06/17 04:30 07/06/17 03:19 07/06/17 03:19 Intake & Output 07/05/17 07/06/17 07/07/17 06:59 06:59 06:59 Intake Total 2525 3456 Output Total 0 Balance 2525 3456 Weight 59.1 kg 60 kg Exam: General: Cushingoid, Awake alert and oriented x3, flushed, mild-moderate respiratory distress, modified tripod HEENT: AT/NC, PERRL, EOMI, oropharynx is moist, pink, no scleral icterus, no conjunctival injection Neck: No JVD, trachea midline Chest: Prolonged expiratory phase, poor air excursion, bilateral end expiratory wheezing CV: Regular rate and rhythm, normal S1 and S2, no murmur, rub, or gallop Abdomen: Soft, nontender to palpation, nondistended, active bowel sounds; no rebound, rigidity, or guarding Extremities: No cyanosis, clubbing; 1+edema to mid-chandra Neuro: Cranial nerves II through XII are grossly intact without focal deficits; awake alert and oriented x3 Psych: Normal mood and affect Results Laboratory Results: 07/06/17 04:55 07/06/17 04:55 07/06/17 07/06/17 04:55 04:55 WBC 7.8 RBC 3.76 Hgb 11.8 L Hct 33.7 L MCV 90 MCH 31.5 MCHC 35.1 RDW 13.7 Plt Count 109 L Seg Neutrophils % Not Reportable Lymphocytes % Not Reportable Monocytes % Not Reportable Eosinophils % Not Reportable Basophils % Not Reportable Absolute Neutrophils Not Reportable Absolute Lymphocytes Not Reportable Absolute Monocytes Not Reportable Absolute Eosinophils Not Reportable Absolute Basophils Not Reportable Sodium 140.6 Potassium 4.4 Chloride 102 Carbon Dioxide 30 Anion Gap 9 BUN 19 Creatinine 0.59 Est GFR ( Amer) > 60 Est GFR (Non-Af Amer) > 60 Glucose 119 H Calcium 9.6 07/04/17 16:00 Troponin I < 0.012 Impressions: Chest X-Ray 07/04/17 11:53 IMPRESSION: COPD. CHRONIC SCARRING. NO ACUTE RADIOGRAPHIC FINDING IN THE CHEST. Assessment & Plan - Diagnosis (1) COPD with acute exacerbation Is this a current diagnosis for this admission?: Yes Plan: Increase IV Solu-Medrol to 125mg IV q6. Sputum culture reveals normal solange. Transition to doxycycline. (2) Acute on chronic diastolic (congestive) heart failure Is this a current diagnosis for this admission?: Yes Plan: Likely acute on chronic diastolic heart failure. Obtain echocardiogram Intiate on lasix No beta-renée at this time secondary to bronchospastic disease Aspirin [Ecotrin 81 mg EC Tablet] 81 mg PO DAILY Furosemide [Lasix 20 mg Tablet] 20 mg PO DAILY Lisinopril [Prinivil 5 mg Tablet] 2.5 mg PO DAILY (3) Acute and chronic respiratory failure with hypercapnia Is this a current diagnosis for this admission?: Yes Plan: Continue oxygen and BiPAP if needed. Patient uses trilogy at home at night. Continue BiPAP overnight and with rest (4) Lyfyy-3-qabueyetirz deficiency Is this a current diagnosis for this admission?: Yes Plan: Patient does not undergoing treatment for this at this time (5) Tobacco abuse Is this a current diagnosis for this admission?: Yes Plan: Encouraged to stop. Offered nicotine replacement (6) Acute respiratory failure with hypoxia Is this a current diagnosis for this admission?: Yes (7) Diarrhea Qualifiers: Diarrhea type: functional diarrhea Qualified Code(s): K59.1 - Functional diarrhea Is this a current diagnosis for this admission?: Yes Plan: Place patient on Bacid and check a C. difficile. This is likely secondary to her Roflumilast. She reports her diarrhea is already improved with Bacid. (8) DVT prophylaxis Is this a current diagnosis for this admission?: Yes (9) DNI (do not intubate) Is this a current diagnosis for this admission?: Yes - Time Time Spent with patient: 25-34 minutes
[2017-07-06] MEDS ORDERED: LEVOFLOXACIN 750 MG TABLET PO SCH (18:00)
[2017-07-06] MEDS: ROPINIROLE HCL 1 MG TABLET PO SCH (21:08)
[2017-07-06] MEDS: CETIRIZINE 5 MG TABLET PO SCH (21:08)
[2017-07-06] MEDS: DOXYCYCLINE HYCLATE 100 MG TABLET PO SCH (21:08)
[2017-07-07] MEDS: METHYLPREDNISOLONE INJ 125 MG/2 ML SDV IV SCH ×3 (00:06→12:15)
[2017-07-07 06:08] LABS: HEMATOCRIT 31.8 % (36.0-47.0); HEMOGLOBIN 11.1 g/dL (12.0-15.5); HGB HCT DIFFERENCE 1.5; MEAN CORPUSCULAR HEMOGLOBIN 31.6 pg (27.0-33.4); MEAN CORPUSCULAR HGB CONC 34.8 g/dL (32.0-36.0); MEAN CORPUSCULAR VOLUME 91 fl (80-97); RED CELL DISTRIBUTION WIDTH 13.6 % (11.5-14.0); WHITE BLOOD COUNT 6.9 10^3/uL (4.0-10.5)
[2017-07-07 06:24] LABS: ANION GAP 9 (5-19); BLOOD UREA NITROGEN 25 mg/dL (7-20); CALCIUM 9.1 mg/dL (8.4-10.2); CARBON DIOXIDE 33 mmol/L (22-30); CHLORIDE 99 mmol/L (98-107); CREATININE RESULT 0.56 mg/dL (0.52-1.25); GLUCOSE 123 mg/dL (75-110); POTASSIUM 4.1 mmol/L (3.6-5.0); SODIUM 141.1 mmol/L (137-145)
[2017-07-07 06:54] LABS: BASOPHILS % (MANUAL) 0 % (0-2); EOSINOPHILS % (MANUAL) 0 % (0-6); LYMPHOCYTES % (MANUAL) 2 % (13-45); TOTAL CELLS COUNTED 100
[2017-07-07 06:56] LABS: ANISOCYTOSIS SLIGHT; OVALOCYTES SLIGHT; POIKILOCYTOSIS SLIGHT; ROULEAUX SLIGHT
[2017-07-07] MEDS: ROFLUMILAST 500 MCG TABLET PO SCH (07:28)
[2017-07-07] MEDS: IPRATROPIUM/ALBUTEROL 0.5-2.5 MG/3 ML AMPUL NEB SCH ×4 (07:53→20:20)
[2017-07-07] MEDS: ENOXAPARIN SODIUM INJ 40 MG/0.4 ML DISP.SYRIN SUBCUT SCH (09:10)
[2017-07-07] MEDS: GUAIFENESIN 600 MG TABLET.SA PO SCH ×2 (09:11→21:32)
[2017-07-07] MEDS: FLUTICASONE NASAL SPRAY 50 MCG/SPRY 120 SPRAY/16 GM NASL SCH ×2 (09:11→21:31)
[2017-07-07] MEDS: FAMOTIDINE 20 MG TABLET PO SCH ×2 (09:11→21:32)
[2017-07-07] MEDS: BUDESONIDE/FORMOTEROL 160-4.5 MCG 60 PUFF/6 GM MDI IH SCH ×2 (09:11→21:31)
[2017-07-07] MEDS: FUROSEMIDE 20 MG TABLET PO SCH (09:12)
[2017-07-07] MEDS: DOXYCYCLINE HYCLATE 100 MG TABLET PO SCH ×2 (09:12→21:32)
[2017-07-07] MEDS: LACTOBACILLUS ACIDOPHILUS 250 MG TAB PO SCH ×2 (09:12→18:01)
[2017-07-07] MEDS: ASPIRIN 81 MG TABLET, ENT COATED PO SCH (09:12)
[2017-07-07] MEDS: LISINOPRIL 5 MG TABLET PO SCH (09:13)
[2017-07-07] MEDS: MONTELUKAST SODIUM 10 MG TABLET PO SCH (09:13)
[2017-07-07] MEDS: ACETAMINOPHEN 325 MG TABLET PO PRN ×2 (09:13→14:14)
--- NOTE | 2017-07-07 17:36 | PDOC PROGRESS REPORT ---
Subjective Progress Note for:: 07/07/17 Subjective:: This is a follow up visit for acute COPD exacerbation. Patient states she feels better today than she did when she first came in. She is on chronic oxygen at home at 3 L/min at rest and at 4 with activity. At the bedside she is currently at 4. She says that she still feels tight. No acute events overnight. Physical Exam Vital Signs: Temp Pulse Resp BP Pulse Ox 97.6 F 99 26 H 123/59 L 96 07/07/17 15:01 07/07/17 16:17 07/07/17 16:17 07/07/17 15:01 07/07/17 16:17 Intake & Output 07/06/17 07/07/17 07/08/17 06:59 06:59 06:59 Intake Total 3456 3304 636 Balance 3456 3304 636 Weight 60 kg 60.4 kg GENERAL: This is a well-developed and nourished appearing white female resting on the side of her bed currently in no acute distress. HEART: Regular rate and rhythm. 2 out of 6 systolic ejection murmur. no rubs or gallops. LUNGS: Coarse breath sounds bilaterally with equal rise and fall of the chest. ABDOMEN: Soft, nontender, nondistended with normoactive bowel sounds EXTREMETIES: No clubbing, cyanosis or edema. 2+ peripheral pulses bilaterally. NEURO: Awake, alert and oriented 3. Cranial nerves II through XII are grossly intact. Results Laboratory Results: 07/07/17 05:09 07/07/17 05:09 07/07/17 07/07/17 05:09 05:09 WBC 6.9 RBC 3.50 L Hgb 11.1 L Hct 31.8 L MCV 91 MCH 31.6 MCHC 34.8 RDW 13.6 Plt Count 103 L Seg Neutrophils % Not Reportable Lymphocytes % Not Reportable Monocytes % Not Reportable Eosinophils % Not Reportable Basophils % Not Reportable Absolute Neutrophils Not Reportable Absolute Lymphocytes Not Reportable Absolute Monocytes Not Reportable Absolute Eosinophils Not Reportable Absolute Basophils Not Reportable Sodium 141.1 Potassium 4.1 Chloride 99 Carbon Dioxide 33 H Anion Gap 9 BUN 25 H Creatinine 0.56 Est GFR ( Amer) > 60 Est GFR (Non-Af Amer) > 60 Glucose 123 H Calcium 9.1 07/04/17 16:00 Troponin I < 0.012 Impressions: Chest X-Ray 07/04/17 11:53 IMPRESSION: COPD. CHRONIC SCARRING. NO ACUTE RADIOGRAPHIC FINDING IN THE CHEST. Assessment & Plan - Diagnosis (1) Acute and chronic respiratory failure with hypercapnia Is this a current diagnosis for this admission?: Yes Plan: This is secondary to underlying COPD exacerbation. Continue steroid therapy. Continue nebulizer treatments. Patient is improved from admission. (2) COPD with acute exacerbation Is this a current diagnosis for this admission?: Yes Plan: Management as above. Continue oxygen. Change Solu-Medrol from 125 every 6 hours to 40 mg every 8 hours (3) Acute on chronic diastolic (congestive) heart failure Is this a current diagnosis for this admission?: Yes Plan: Patient is receiving diuresis. Patient has not had an echocardiogram. There is been no BNP on this admission. There is no swelling of the lower extremities. Will check cardiac echo. (4) Ojuxy-8-qyhqwyxwrkd deficiency Is this a current diagnosis for this admission?: Yes (5) Tobacco abuse Is this a current diagnosis for this admission?: Yes Plan: Smoking cessation is advised. - Time Time Spent with patient: 15-24 minutes Anticipated discharge: Home - Inpatient Certification Medical Necessity: Need Close Monitoring Due to Risk of Patient Decompensation
[2017-07-07] MEDS: ROPINIROLE HCL 1 MG TABLET PO SCH (21:32)
[2017-07-07] MEDS: CETIRIZINE 5 MG TABLET PO SCH (21:32)
[2017-07-07] MEDS: METHYLPREDNISOLONE INJ 40 MG/1 ML SDV IV SCH (21:33)
[2017-07-07] MEDS ORDERED: METHYLPREDNISOLONE INJ 125 MG/2 ML SDV IV SCH (22:00)
[2017-07-08] MEDS: METHYLPREDNISOLONE INJ 40 MG/1 ML SDV IV SCH ×3 (05:05→22:08)
[2017-07-08] MEDS: IPRATROPIUM/ALBUTEROL 0.5-2.5 MG/3 ML AMPUL NEB SCH ×4 (08:04→20:06)
[2017-07-08] MEDS: ROFLUMILAST 500 MCG TABLET PO SCH (08:43)
[2017-07-08] MEDS: LACTOBACILLUS ACIDOPHILUS 250 MG TAB PO SCH ×2 (09:18→17:56)
[2017-07-08] MEDS: GUAIFENESIN 600 MG TABLET.SA PO SCH ×2 (09:18→22:07)
[2017-07-08] MEDS: ASPIRIN 81 MG TABLET, ENT COATED PO SCH (09:18)
[2017-07-08] MEDS: MONTELUKAST SODIUM 10 MG TABLET PO SCH (09:19)
[2017-07-08] MEDS: LISINOPRIL 5 MG TABLET PO SCH (09:20)
[2017-07-08] MEDS: FAMOTIDINE 20 MG TABLET PO SCH ×2 (09:20→22:07)
[2017-07-08] MEDS: FUROSEMIDE 20 MG TABLET PO SCH (09:21)
[2017-07-08] MEDS: BUDESONIDE/FORMOTEROL 160-4.5 MCG 60 PUFF/6 GM MDI IH SCH ×2 (09:23→22:06)
[2017-07-08] MEDS: FLUTICASONE NASAL SPRAY 50 MCG/SPRY 120 SPRAY/16 GM NASL SCH ×2 (09:24→22:07)
[2017-07-08] MEDS: DOXYCYCLINE HYCLATE 100 MG TABLET PO SCH ×2 (09:24→22:07)
[2017-07-08] MEDS: ENOXAPARIN SODIUM INJ 40 MG/0.4 ML DISP.SYRIN SUBCUT SCH (09:46)
--- NOTE | 2017-07-08 11:56 | RADIOLOGY REPORT (SQ) ---
EXAM DESCRIPTION: CHEST PA/LAT COMPLETED DATE/TIME: 07/08/2017 11:43 am REASON FOR STUDY: copd exacerbation COMPARISON: CT chest 10/23/2015 Chest films 10/20/2015, 11/15/2016, 03/08/2017, 07/04/2017 EXAM PARAMETERS: NUMBER OF VIEWS: two views TECHNIQUE: Digital Frontal and Lateral radiographic views of the chest acquired. RADIATION DOSE: NA LIMITATIONS: none FINDINGS: LUNGS AND PLEURA: Lungs are hyperinflated and hyperlucent from obstructive disease. Minim al lingular bandlike scarring. No fluffy alveolar infiltrates worrisome for edema or pneumonia. No gross pleural effusion or pneumo thorax. MEDIASTINUM AND HILAR STRUCTURES: No masses or contour abnormalities. HEART AND VASCULAR STRUCTURES: Heart normal size. No evidence for failure. BONES: Osteoporotic. No thoracic compression deformity HARDWARE: None in the chest. OTHER: No other significant finding. IMPRESSION: Obstructive lung disease. No acute changes TECHNICAL DOCUMENTATION: JOB ID: [id number] [employer]- All Rights Reserved
[2017-07-08] MEDS: CETIRIZINE 5 MG TABLET PO SCH (22:07)
[2017-07-08] MEDS: ROPINIROLE HCL 1 MG TABLET PO SCH (22:08)
[2017-07-09] MEDS: LEVALBUTEROL HCL NEB 1.25 MG/3 ML AMPUL NEB PRN (04:09)
[2017-07-09 04:54] LABS: VENOUS BLOOD BASE EXCESS 12.6 mmol/L; VENOUS BLOOD HCO3 38.8 mmol/L (20-32); VENOUS BLOOD PCO2 57.3 mmHg (35-63); VENOUS BLOOD PH 7.45 (7.30-7.42)
[2017-07-09 05:11] LABS: ANION GAP 7 (5-19); BLOOD UREA NITROGEN 28 mg/dL (7-20); CALCIUM 8.7 mg/dL (8.4-10.2); CARBON DIOXIDE 36 mmol/L (22-30); CHLORIDE 97 mmol/L (98-107); CREATININE RESULT 0.55 mg/dL (0.52-1.25); GLUCOSE 129 mg/dL (75-110); MAGNESIUM 2.2 mg/dL (1.6-2.3); POTASSIUM 4.2 mmol/L (3.6-5.0)
[2017-07-09] MEDS: METHYLPREDNISOLONE INJ 40 MG/1 ML SDV IV SCH ×3 (05:35→22:40)
[2017-07-09 06:29] LABS: FREE T3 2.65 pg/mL (2.77-5.27)
[2017-07-09] MEDS: ROFLUMILAST 500 MCG TABLET PO SCH (07:46)
[2017-07-09] MEDS: IPRATROPIUM/ALBUTEROL 0.5-2.5 MG/3 ML AMPUL NEB SCH ×4 (08:07→20:06)
[2017-07-09] MEDS: BUDESONIDE/FORMOTEROL 160-4.5 MCG 60 PUFF/6 GM MDI IH SCH ×2 (09:18→22:41)
[2017-07-09] MEDS: FLUTICASONE NASAL SPRAY 50 MCG/SPRY 120 SPRAY/16 GM NASL SCH ×2 (09:18→22:41)
[2017-07-09] MEDS: FAMOTIDINE 20 MG TABLET PO SCH ×2 (09:18→22:42)
[2017-07-09] MEDS: FUROSEMIDE 20 MG TABLET PO SCH (09:19)
[2017-07-09] MEDS: MONTELUKAST SODIUM 10 MG TABLET PO SCH (09:19)
[2017-07-09] MEDS: GUAIFENESIN 600 MG TABLET.SA PO SCH ×2 (09:19→22:41)
[2017-07-09] MEDS: LACTOBACILLUS ACIDOPHILUS 250 MG TAB PO SCH ×2 (09:20→17:29)
[2017-07-09] MEDS: ASPIRIN 81 MG TABLET, ENT COATED PO SCH (09:20)
[2017-07-09] MEDS: LISINOPRIL 5 MG TABLET PO SCH (09:21)
[2017-07-09] MEDS: DOXYCYCLINE HYCLATE 100 MG TABLET PO SCH ×2 (09:22→22:42)
[2017-07-09] MEDS: ENOXAPARIN SODIUM INJ 40 MG/0.4 ML DISP.SYRIN SUBCUT SCH (11:56)
[2017-07-09] MEDS: ACETAMINOPHEN 325 MG TABLET PO PRN (15:36)
--- NOTE | 2017-07-09 22:01 | PDOC PROGRESS REPORT ---
Subjective Progress Note for:: 07/09/17 Subjective:: This is a follow up visit for acute COPD exacerbation. The patient is currently on bilevel Pap when I entered the room. She says she recently got back in bed after trying to walk to the bathroom. She states is the second time that she is gone back on the BiPAP. I spoke with the nurses says that the patient did not drop her sats but that she certainly looked tachypneic and that she recommended that she put back on her BiPAP when needed. Physical Exam Vital Signs: Temp Pulse Resp BP Pulse Ox 98.0 F 91 32 H 104/62 99 07/09/17 19:28 07/09/17 19:28 07/09/17 19:28 07/09/17 19:28 07/09/17 19:28 Intake & Output 07/08/17 07/09/17 07/10/17 06:59 06:59 06:59 Intake Total 2419 2018 146 Balance 2418 2018 146 Weight 60.7 kg 61.9 kg GENERAL: This is a well-developed and nourished appearing white female resting in bed on bipap currently in no acute distress. HEART: Regular rate and rhythm. 2 out of 6 systolic ejection murmur. no rubs or gallops. LUNGS: Coarse breath sounds bilaterally with equal rise and fall of the chest. ABDOMEN: Soft, nontender, nondistended with normoactive bowel sounds EXTREMETIES: No clubbing, cyanosis or edema. 2+ peripheral pulses bilaterally. NEURO: Awake, alert and oriented 3. Cranial nerves II through XII are grossly intact. Results Laboratory Results: 07/07/17 05:09 07/09/17 04:44 07/09/17 07/09/17 07/09/17 04:44 04:44 04:44 VBG pH 7.45 H VBG pCO2 57.3 VBG HCO3 38.8 H VBG Base Excess 12.6 Sodium 140.0 Potassium 4.2 Chloride 97 L Carbon Dioxide 36 H Anion Gap 7 BUN 28 H Creatinine 0.55 Est GFR ( Amer) > 60 Est GFR (Non-Af Amer) > 60 Glucose 129 H Calcium 8.7 Magnesium 2.2 TSH 0.09 L Free T4 Free T3 pg/mL 07/09/17 04:44 VBG pH VBG pCO2 VBG HCO3 VBG Base Excess Sodium Potassium Chloride Carbon Dioxide Anion Gap BUN Creatinine Est GFR ( Amer) Est GFR (Non-Af Amer) Glucose Calcium Magnesium TSH Free T4 0.58 L Free T3 pg/mL 2.65 L 07/04/17 16:00 Troponin I < 0.012 Impressions: Chest X-Ray 07/08/17 00:00 IMPRESSION: Obstructive lung disease. No acute changes Assessment & Plan - Diagnosis (1) Acute and chronic respiratory failure with hypercapnia Is this a current diagnosis for this admission?: Yes Plan: This is secondary to underlying COPD exacerbation. Increased steroids to 3 times daily.. Continue nebulizer treatments. Patient is improved from admission. (2) COPD with acute exacerbation Is this a current diagnosis for this admission?: Yes Plan: Management as above. Continue oxygen. Continue Solu-Medrol every 8 hours. (3) Acute on chronic diastolic (congestive) heart failure Is this a current diagnosis for this admission?: Yes Plan: Patient is receiving diuresis. Patient has not had an echocardiogram. There is been no BNP on this admission. There is no swelling of the lower extremities. Will check cardiac echo tomorrow. (4) Embtt-2-qbiqlnmbbiv deficiency Is this a current diagnosis for this admission?: Yes (5) Tobacco abuse Is this a current diagnosis for this admission?: Yes Plan: Smoking cessation is advised. - Time Time Spent with patient: 15-24 minutes Anticipated discharge: Home - Inpatient Certification Medical Necessity: Need Close Monitoring Due to Risk of Patient Decompensation
[2017-07-09] MEDS: ROPINIROLE HCL 1 MG TABLET PO SCH (22:41)
[2017-07-09] MEDS: CETIRIZINE 5 MG TABLET PO SCH (22:42)
[2017-07-10] MEDS: LEVALBUTEROL HCL NEB 1.25 MG/3 ML AMPUL NEB PRN (05:04)
[2017-07-10] MEDS: ACETAMINOPHEN 325 MG TABLET PO PRN ×3 (05:24→20:24)
[2017-07-10] MEDS: METHYLPREDNISOLONE INJ 40 MG/1 ML SDV IV SCH ×3 (05:25→21:12)
[2017-07-10] MEDS: IPRATROPIUM/ALBUTEROL 0.5-2.5 MG/3 ML AMPUL NEB SCH ×4 (07:45→20:39)
[2017-07-10] MEDS: FLUTICASONE NASAL SPRAY 50 MCG/SPRY 120 SPRAY/16 GM NASL SCH ×2 (09:10→21:12)
[2017-07-10] MEDS: FAMOTIDINE 20 MG TABLET PO SCH ×2 (09:10→21:11)
[2017-07-10] MEDS: ROFLUMILAST 500 MCG TABLET PO SCH (09:10)
[2017-07-10] MEDS: GUAIFENESIN 600 MG TABLET.SA PO SCH ×2 (09:11→21:11)
[2017-07-10] MEDS: LACTOBACILLUS ACIDOPHILUS 250 MG TAB PO SCH ×2 (09:11→17:35)
[2017-07-10] MEDS: LISINOPRIL 5 MG TABLET PO SCH (09:11)
[2017-07-10] MEDS: ASPIRIN 81 MG TABLET, ENT COATED PO SCH (09:12)
[2017-07-10] MEDS: MONTELUKAST SODIUM 10 MG TABLET PO SCH (09:12)
[2017-07-10] MEDS: DOXYCYCLINE HYCLATE 100 MG TABLET PO SCH ×2 (09:13→21:12)
[2017-07-10] MEDS: BUDESONIDE/FORMOTEROL 160-4.5 MCG 60 PUFF/6 GM MDI IH SCH ×2 (09:13→21:12)
[2017-07-10] MEDS: ENOXAPARIN SODIUM INJ 40 MG/0.4 ML DISP.SYRIN SUBCUT SCH (09:13)
[2017-07-10] MEDS: FUROSEMIDE 20 MG TABLET PO SCH (09:15)
--- NOTE | 2017-07-10 11:30 | XCELERA REPORT ---
[address] [address] Transthoracic Echocardiogram Report Name: AUDIE KIMBLE Age: 56 yrs Gender: Female : 1960 Patient Status: Inpatient Patient Location: [address] [place] [address] Study Date: 07/10/2017 09:28 AM Height: 65 in Weight: 136 lb BSA: 1.7 m2 Procedure: A complete two-dimensional transthoracic echocardiogram was performed (2D, M-mode, spectral and color flow Doppler). The study was technically adequate with some images being suboptimal in quality. Reason For Study: chf Ordering Physician: NIKKIE MAYBERRY Performed By: Taylor Moore Interpretation Summary The left ventricular ejection fraction is normal. There is normal left ventricular wall thickness. Doppler measurements suggest pseudonormalized left ventricular relaxation, which is associated with grade II/IV or mild to moderate diastolic dysfunction The left ventricle is grossly normal size. Wall motion cannot be accurately commented on, but no definite regional wall motion abnormalities noted. The right ventricle is mildly dilated. The right ventricular systolic function is normal. The right atrium is mild to moderately dilated. The left atrial size is normal. There is no mitral valve stenosis. There is a trace amount of mitral regurgitation There is no aortic valve stenosis No aortic regurgitation is present. There is a mild amount of tricuspid regurgitation There is servere pulmonary hypertension by echo Right ventricular systolic pressure is estimated to be elevated at >60mmHg. The aortic root is not well visualized but is probably normal size. The inferior vena cava appeared normal and decreased > 50% with respiration (RAP 5-10 mmHg) There is no pericardial effusion. MMode/2D Measurements & Calculations RVDd: 2.6 cm LVIDd: 4.3 cm FS: 43.5 % Ao root diam: 2.4 cm IVSd: 0.82 cm LVIDs: 2.5 cm EDV(Teich): 85.2 ml LVPWd: 0.79 cm ESV(Teich): 21.3 ml Ao root area: 4.4 cm2 EF(Teich): 75.0 % LA dimension: 3.2 cm Doppler Measurements & Calculations MV E max leroy: MV P1/2t max leroy: Ao V2 max: LV V1 max P.4 cm/sec 89.3 cm/sec 185.4 cm/sec 7.9 mmHg MV A max leroy: MV P1/2t: 71.7 msec Ao max PG: LV V1 max: 108.6 cm/sec 13.7 mmHg 140.2 cm/sec MV E/A: 0.80 MVA(P1/2t): 3.1 cm2 MV dec slope: 364.9 cm/sec2 MV dec time: 0.23 sec PA V2 max: TR max leroy: 113.0 cm/sec 463.0 cm/sec PA max P.1 mmHgTR max P.8 mmHg Left Ventricle The left ventricle is grossly normal size. There is normal left ventricular wall thickness. The left ventricular ejection fraction is normal. Doppler measurements suggest pseudonormalized left ventricular relaxation, which is associated with grade II/IV or mild to moderate diastolic dysfunction. Wall motion cannot be accurately commented on, but no definite regional wall motion abnormalities noted. Right Ventricle The right ventricle is mildly dilated. The right ventricular systolic function is normal. Atria The right atrium is mild to moderately dilated. The left atrial size is normal. Interarterial septum not well visualized and not well dopplered. Cannot comment on ASD/PFO presence. Mitral Valve The mitral valve is grossly normal. There is no mitral valve stenosis. There is a trace amount of mitral regurgitation. Aortic Valve The aortic valve is grossly normal. There is no aortic valve stenosis. No aortic regurgitation is present. Tricuspid Valve The tricuspid valve is not well visualized, but is grossly normal. There is no tricuspid stenosis. There is a mild amount of tricuspid regurgitation. There is servere pulmonary hypertension by echo. Right ventricular systolic pressure is estimated to be elevated at >60mmHg. Pulmonic Valve The pulmonic valve is not well visualized. Great Vessels The aortic root is not well visualized but is probably normal size. The inferior vena cava appeared normal and decreased > 50% with respiration (RAP 5-10 mmHg). Effusions There is no pericardial effusion. : NIKKIE MAYBERRY > Marcela Lombardo
--- NOTE | 2017-07-10 14:42 | PDOC PROGRESS REPORT ---
Subjective Progress Note for:: 07/10/17 Subjective:: This is a follow up visit for acute COPD exacerbation. I received a call from Dr. Lombardo today who informs me that he looked at her echocardiogram and that she has a very large right ventricle as well as severe pulmonary hypertension. I then placed a call to Dr. Nguyen, her vamp maker Dr. Nguyen inform me that he is spoken to her in the past about this likely being end-stage COPD. He was unaware pulmonary hypertension but appreciates knowing this. He usually refers his patients out to [facility] to see a specialist in cor pulmonale and pulmonary hypertension. He informs me that her FEV1 is 0.5 to which is 20% of predicted. He tells me that she has an ASD and bilevel Pap at home. He recommends that she pursue hospice because he does not think she will get much benefit even from a specialty consultation. Apparently, he and the patient had discussed the need for lung transplant before. However, the patient states she cannot afford this and she cannot get back and forth to doctor's appointments at such a distance. A lung transplant is not what she wants at this time. Naturally the patient became tearful at the bedside. She wants to be able to discuss this with her . Should the patient pursue hospice, Dr. Nguyen has agreed to help her maintain arrangements through his office. Dr. Herndon would like to follow-up with her in the office. Physical Exam Vital Signs: Temp Pulse Resp BP Pulse Ox 98.1 F 100 35 H 111/60 96 07/10/17 11:07 07/10/17 12:58 07/10/17 12:58 07/10/17 11:07 07/10/17 11:07 Intake & Output 07/09/17 07/10/17 07/11/17 06:59 06:59 06:59 Intake Total 2018 9672 400 Balance 2018 8747 643 Weight 61.9 kg 62.8 kg GENERAL: This is a well-developed and nourished appearing white female resting in bed on nc currently in no acute distress. HEART: Regular rate and rhythm. 2 out of 6 systolic ejection murmur. no rubs or gallops. LUNGS: Coarse breath sounds bilaterally with equal rise and fall of the chest. ABDOMEN: Soft, nontender, nondistended with normoactive bowel sounds EXTREMETIES: No clubbing, cyanosis or edema. 2+ peripheral pulses bilaterally. NEURO: Awake, alert and oriented 3. Cranial nerves II through XII are grossly intact. Results Laboratory Results: 07/07/17 05:09 07/09/17 04:44 07/04/17 16:00 Troponin I < 0.012 Impressions: Chest X-Ray 07/08/17 00:00 IMPRESSION: Obstructive lung disease. No acute changes Assessment & Plan - Diagnosis (1) Acute and chronic respiratory failure with hypercapnia Is this a current diagnosis for this admission?: Yes Plan: This is secondary to underlying COPD exacerbation and severe pulmonary hypertension. At this point I think her COPD is been optimally manage. I do not think she will get much better than this considering the severity of her pulmonary hypertension. Her COPD is end-stage at this point. Continue oxygen therapy. The patient informs me that her BiPAP was taken away about 3 weeks ago by the supplier. She states that the reason she was given is because she is also on ASV. (2) COPD with acute exacerbation Is this a current diagnosis for this admission?: Yes Plan: Management as above. Continue oxygen. Wean steroids to twice a day. And gradually taper to p.o. prednisone. Follow-up with Dr. Nguyen as an outpatient. This seems to be end-stage COPD. I think the patient ultimately should be discharged home on oxygen and follow with Dr. Nguyen for consideration of hospice services. (3) Acute on chronic diastolic (congestive) heart failure Is this a current diagnosis for this admission?: Yes Plan: Patient is receiving diuresis. I am not convinced that she has diastolic heart failure. Of course she has a large RV and certainly over time we will developed car heart failure from her pulmonary hypertension. We will continue to monitor. Add BNP to morning labs. (4) Lhnxe-7-kzztxemyhrm deficiency Is this a current diagnosis for this admission?: Yes Plan: Dr. Nguyen is aware of her alpha-1 antitrypsin deficiency. She may follow-up with him in the office. (5) Tobacco abuse Is this a current diagnosis for this admission?: Yes Plan: Smoking cessation is advised. (6) Pulmonary hypertension Plan: The patient had an echocardiogram showing severe pulmonary hypertension and a large right ventricle. Follow up with pulmonology. (7) End of life care Plan: I discussed with the patient Dr. Nguyen's recommendations. She has end-stage COPD with an FEV1 of 0.5-20% of predicted. At this point we will recommend hospice and DNR status. The patient would like some time to discuss it with her . She states that it her conversations with Dr. Nguyen he had been hinting at this. She becomes tearful at the bedside. Follow-up with Dr. Nguyen. At this point I will do not want to send the patient home on such high-dose steroids I would like to taper her a bit before sending her home. She can likely be discharged tomorrow the day after. (8) Yeast infection of the vagina Plan: The patient complains of itchiness and discharge from the vagina while on steroids. We will give her a dose of Diflucan. - Time Time Spent with patient: 35 or more minutes - Inpatient Certification Based on my medical assessment, after consideration of the patient's comorbidities, presenting symptoms, or acuity I expect that the services needed warrant INPATIENT care.: Yes
[2017-07-10] MEDS ORDERED: FLUCONAZOLE 100 MG TABLET PO ONE (14:43)
[2017-07-10] MEDS: ROPINIROLE HCL 1 MG TABLET PO SCH (21:11)
[2017-07-10] MEDS: CETIRIZINE 5 MG TABLET PO SCH (21:11)
[2017-07-11] MEDS: LEVALBUTEROL HCL NEB 1.25 MG/3 ML AMPUL NEB PRN (03:52)
[2017-07-11] MEDS: METHYLPREDNISOLONE INJ 40 MG/1 ML SDV IV SCH ×3 (05:15→22:13)
[2017-07-11] MEDS: ROFLUMILAST 500 MCG TABLET PO SCH (07:37)
[2017-07-11] MEDS: IPRATROPIUM/ALBUTEROL 0.5-2.5 MG/3 ML AMPUL NEB SCH ×4 (08:29→20:15)
[2017-07-11] MEDS: DOXYCYCLINE HYCLATE 100 MG TABLET PO SCH ×2 (09:43→22:12)
[2017-07-11] MEDS: ACETAMINOPHEN 325 MG TABLET PO PRN ×3 (09:43→22:13)
[2017-07-11] MEDS: BUDESONIDE/FORMOTEROL 160-4.5 MCG 60 PUFF/6 GM MDI IH SCH ×2 (09:47→22:10)
[2017-07-11] MEDS: LACTOBACILLUS ACIDOPHILUS 250 MG TAB PO SCH ×2 (09:47→17:42)
[2017-07-11] MEDS: FLUTICASONE NASAL SPRAY 50 MCG/SPRY 120 SPRAY/16 GM NASL SCH ×2 (09:47→22:10)
[2017-07-11] MEDS: LISINOPRIL 5 MG TABLET PO SCH (09:48)
[2017-07-11] MEDS: FUROSEMIDE 20 MG TABLET PO SCH (09:48)
[2017-07-11] MEDS: FAMOTIDINE 20 MG TABLET PO SCH ×2 (09:49→22:11)
[2017-07-11] MEDS: ASPIRIN 81 MG TABLET, ENT COATED PO SCH (09:49)
[2017-07-11] MEDS: GUAIFENESIN 600 MG TABLET.SA PO SCH ×2 (09:49→22:12)
[2017-07-11] MEDS: MONTELUKAST SODIUM 10 MG TABLET PO SCH (09:50)
[2017-07-11] MEDS: ENOXAPARIN SODIUM INJ 40 MG/0.4 ML DISP.SYRIN SUBCUT SCH (09:51)
--- NOTE | 2017-07-11 17:20 | PDOC PROGRESS REPORT ---
Subjective Progress Note for:: 07/11/17 Subjective:: Reports her shortness of breath is improved. Physical Exam Vital Signs: Temp Pulse Resp BP Pulse Ox 97.3 F 81 16 112/64 98 07/11/17 11:16 07/11/17 16:40 07/11/17 16:40 07/11/17 11:16 07/11/17 16:40 Intake & Output 07/10/17 07/11/17 07/12/17 06:59 06:59 06:59 Intake Total 2478 822 582 Balance 2478 822 582 Weight 62.8 kg 61.8 kg General appearance: PRESENT: no acute distress Eye exam: PRESENT: conjunctiva pink. ABSENT: scleral icterus Mouth exam: PRESENT: moist, tongue midline Neck exam: ABSENT: JVD Respiratory exam: PRESENT: wheezes - Few scattered expiratory wheezes. ABSENT: rales, rhonchi Cardiovascular exam: PRESENT: RRR. ABSENT: diastolic murmur, rubs, systolic murmur GI/Abdominal exam: PRESENT: normal bowel sounds, soft. ABSENT: distended, guarding, mass, organolmegaly, rebound, tenderness Extremities exam: ABSENT: calf tenderness, clubbing, pedal edema Neurological exam: PRESENT: alert, awake, oriented to person, oriented to place , oriented to time, oriented to situation, CN II-XII grossly intact. ABSENT: motor sensory deficit Psychiatric exam: PRESENT: appropriate affect Skin exam: PRESENT: dry, intact, warm. ABSENT: cyanosis, rash Results Laboratory Results: 07/07/17 05:09 07/09/17 04:44 07/04/17 16:00 Troponin I < 0.012 Impressions: Chest X-Ray 07/08/17 00:00 IMPRESSION: Obstructive lung disease. No acute changes Assessment & Plan - Diagnosis (1) Acute on chronic respiratory failure Qualifiers: Respiratory failure complication: hypoxia and hypercapnia Qualified Code(s) : J96.21 - Acute and chronic respiratory failure with hypoxia Is this a current diagnosis for this admission?: Yes Plan: Secondary to acute COPD exacerbation. Continue steroids, nebulizers, BiPAP. (2) COPD exacerbation Is this a current diagnosis for this admission?: Yes Plan: Continue with nebulizers and IV steroids. (3) Acute on chronic diastolic (congestive) heart failure Is this a current diagnosis for this admission?: Yes Plan: Improving. (4) End of life care Is this a current diagnosis for this admission?: Yes (5) Pulmonary hypertension Is this a current diagnosis for this admission?: Yes (6) Gbfbk-3-nerlcaditgb deficiency Is this a current diagnosis for this admission?: Yes (7) Hypertension Qualifiers: Hypertension type: essential hypertension Qualified Code(s): I10 - Essential (primary) hypertension Is this a current diagnosis for this admission?: Yes (8) Restless legs syndrome Is this a current diagnosis for this admission?: Yes - Time Time Spent with patient: 25-34 minutes - Inpatient Certification Medical Necessity: Need Close Monitoring Due to Risk of Patient Decompensation
[2017-07-11] MEDS: CETIRIZINE 5 MG TABLET PO SCH (22:11)
[2017-07-11] MEDS: ROPINIROLE HCL 1 MG TABLET PO SCH (22:11)
[2017-07-12] MEDS: LEVALBUTEROL HCL NEB 1.25 MG/3 ML AMPUL NEB PRN (04:16)
[2017-07-12 06:12] LABS: HEMATOCRIT 37.1 % (36.0-47.0); HEMOGLOBIN 12.7 g/dL (12.0-15.5); MEAN CORPUSCULAR HEMOGLOBIN 31.3 pg (27.0-33.4); MEAN CORPUSCULAR HGB CONC 34.2 g/dL (32.0-36.0); MEAN CORPUSCULAR VOLUME 91 fl (80-97); RED BLOOD COUNT 4.06 10^6/uL (3.72-5.28); RED CELL DISTRIBUTION WIDTH 13.9 % (11.5-14.0)
[2017-07-12 06:20] LABS: ANION GAP 9 (5-19); BLOOD UREA NITROGEN 22 mg/dL (7-20); CALCIUM 9.1 mg/dL (8.4-10.2); CARBON DIOXIDE 35 mmol/L (22-30); CHLORIDE 96 mmol/L (98-107); CREATININE RESULT 0.53 mg/dL (0.52-1.25); GLUCOSE 134 mg/dL (75-110); POTASSIUM 5.3 mmol/L (3.6-5.0); SODIUM 139.6 mmol/L (137-145)
[2017-07-12] MEDS: METHYLPREDNISOLONE INJ 40 MG/1 ML SDV IV SCH (06:27)
[2017-07-12 06:40] LABS: BASOPHILS % (MANUAL) 0 % (0-2); EOSINOPHILS % (MANUAL) 0 % (0-6); LYMPHOCYTES % (MANUAL) 7 % (13-45); TOTAL CELLS COUNTED 100
[2017-07-12 06:41] LABS: OVALOCYTES SLIGHT; POIKILOCYTOSIS SLIGHT
[2017-07-12] MEDS: ROFLUMILAST 500 MCG TABLET PO SCH (08:01)
[2017-07-12] MEDS: IPRATROPIUM/ALBUTEROL 0.5-2.5 MG/3 ML AMPUL NEB SCH ×2 (08:49→12:09)
[2017-07-12] MEDS: BUDESONIDE/FORMOTEROL 160-4.5 MCG 60 PUFF/6 GM MDI IH SCH (10:56)
[2017-07-12] MEDS: ASPIRIN 81 MG TABLET, ENT COATED PO SCH (10:56)
[2017-07-12] MEDS: FAMOTIDINE 20 MG TABLET PO SCH (10:56)
[2017-07-12] MEDS: LISINOPRIL 5 MG TABLET PO SCH (10:57)
[2017-07-12] MEDS: GUAIFENESIN 600 MG TABLET.SA PO SCH (10:59)
[2017-07-12] MEDS: DOXYCYCLINE HYCLATE 100 MG TABLET PO SCH (10:59)
[2017-07-12] MEDS: FUROSEMIDE 20 MG TABLET PO SCH (10:59)
[2017-07-12] MEDS: MONTELUKAST SODIUM 10 MG TABLET PO SCH (10:59)
[2017-07-12] MEDS: LACTOBACILLUS ACIDOPHILUS 250 MG TAB PO SCH (11:00)
[2017-07-12] MEDS: ENOXAPARIN SODIUM INJ 40 MG/0.4 ML DISP.SYRIN SUBCUT SCH (11:00)
[2017-07-12] MEDS: FLUTICASONE NASAL SPRAY 50 MCG/SPRY 120 SPRAY/16 GM NASL SCH (11:00)
[2017-07-12 12:50] VITALS: BP 113/62
--- NOTE | 2017-07-12 16:08 | PDOC DISCHARGE SUMMARY ---
General - Admit/Disc Date/PCP Admission Date/Primary Care Provider: 07/04/17 14:52 Discharge Date: 07/12/17 - Discharge Diagnosis (1) Acute and chronic respiratory failure with hypercapnia Is this a current diagnosis for this admission?: Yes Summary: Improved. The patient has ASV at home she will need to remain on this. She had a bilevel Pap up until about a month ago; but this was taken away. Continue at home nebulizers. Continue prednisone taper. Continue oxygen therapy. (2) COPD with acute exacerbation Is this a current diagnosis for this admission?: Yes Summary: The patient COPD is really end-stage. She had some improvement of her exacerbation but in large part her respiratory distress is secondary to underlying pulmonary hypertension. She will need to follow with Dr. Downey as above. (3) Acute on chronic diastolic (congestive) heart failure Is this a current diagnosis for this admission?: Yes Summary: The patient did have a large RV. She was diuresis. She is sent home with Lasix 20 daily for now. (4) Hzspl-1-episbbadvbm deficiency Is this a current diagnosis for this admission?: Yes Summary: Follow-up with Dr. Downey. (5) Tobacco abuse Is this a current diagnosis for this admission?: Yes Summary: Cessation is advised. (6) Pulmonary hypertension Is this a current diagnosis for this admission?: Yes Summary: Follow with Dr. Downey. The patient may be able to go to [facility] for consulted for treatment. But her prognosis is poor. (7) End of life care Is this a current diagnosis for this admission?: Yes Summary: Hospice was discussed. Palliative care was arranged for the patient. They will meet with her and her in their home. See above. (8) Yeast infection of the vagina Summary: Status post treatment with 150 mg of Diflucan - Additional Information Resuscitation Status: Do Not Intubate Home Medications: Albuterol Sulfate [Ventolin 0.083% Neb 2.5 mg/3 mL Ampul] 2.5 mg PO Q4HP PRN Budesonide/Formoterol Fumarate [Symbicort HFA 160-4.5 mcg Inhaler 6 gm] 1 puff IH Q12 03/09/17 Fluticasone Propionate [Flonase Nasal [place] 50 Mcg/[place] 16 gm] 1 spray NASL Q12 03/09/17 Ipratropium [place] [Atrovent 0.02% Neb 0.5 mg/2.5 ml Ampul] 0.5 mg NEB Q4HP PRN 03/09/17 Levalbuterol Tartrate [Xopenex Hfa] 2 puff IH Q4HP PRN 03/09/17 Montelukast Sodium [Singulair 10 mg Tablet] 10 mg PO DAILY 03/09/17 Roflumilast [Daliresp 500 mcg Tablet] 500 mcg PO DAILY 03/09/17 Tiotropium [place] [Spiriva Handihaler 5 Cap/Kit (18 Mcg/Cap)] 1 puff IN DAILY 03/09/17 Ropinirole HCl 2 tab PO QHS 03/11/17 Aspirin [Adult Low Dose Aspirin EC] 81 mg PO DAILY 07/04/17 Ergocalciferol (Vitamin D2) [Drisdol 50,000 unit (1.25MG) Capsule] 50,000 unit PO [id number] 07/04/17 Levocetirizine Dihydrochloride [Xyzal] 5 mg PO QHS 07/04/17 Ranitidine HCl [Zantac 150 mg Tablet] 150 mg PO QHS 07/04/17 Roflumilast [Daliresp 500 mcg Tablet] 500 mcg PO QAM 07/04/17 Doxycycline Hyclate [Vibramycin 100 mg Tablet] 100 mg PO Q12 #10 tablet Furosemide [Lasix 20 mg Tablet] 20 mg PO DAILY #30 tablet 07/12/17 Lisinopril [Prinivil 5 mg Tablet] 2.5 mg PO DAILY #30 tablet 07/12/17 Prednisone 20 mg PO ASDIR PRN #15 tablet 07/12/17 History of Present Illness History of Present Illness: AUDIE KIMBLE is a 56 year old white female who presented to the service with acute on chronic respiratory failure secondary to COPD exacerbation. Please see the below admission HPI for further details as per the admitting physician. Admission Date/PCP: 07/04/17 Dr. Tuttle History of Present Illness: AUDIE KIMBLE is a 56 year old female with past medical history of alpha-1 antitrypsin deficiency, COPD which is oxygen dependent who presents with worsening shortness of breath. She reports that she has been using her trilogy at home. She reports that it does give her gas and she began vomiting for the last several days from this. Patient reports that starting last Thursday she began feeling ill. She had a loss of family member. She reports subjective fevers and chills, green mucus, but no chest pain. Patient reports no new medications and last took steroids 1 week ago. She is referred to the hospitalist service for exacerbation of COPD. Hospital Course Hospital Course: Patient was admitted to the [facility]. She was placed on bilevel Pap. Patient remained on and off a bilevel Pap for the duration of her hospitalization. When she was not on bilevel Pap she was able to be on nasal cannula oxygen. Her breath sounds were initially quite coarse but on the day of discharge sounded improved. She was maintained on IV steroids here. These were weaned down and then she was transitioned to p.o. on discharge. Patient also was on antibiotics. She had a cardiac echo that was done here and showed a large right ventricle and severe pulmonary hypertension. In part of the patient's respiratory distress not was not only from COPD but also undiagnosed pulmonary hypertension. I called her primary battery loader Dr. Nguyen and notified him of these findings. He disclosed to me that he had a long ago introduced the idea of hospice to the patient and that he feels that this is end-stage COPD. He also shared with me that her FEV1 was 0.52 which is 20% of predicted. He has suggested a lung transplant in the past patient was not able do this. I discussed this with the patient she is willing to hear information about hospice. I also discussed DNR status patient is not yet prepared to be a full DNR. Therefore we consulted palliative care. They will meet her and her out at her home and discuss services that they can offer. This is a good plan for this patient as I feel that it will gradually transition her into the idea of hospice. Dr. Downey was kind in saying that he will be willing to discuss hospice with her again in the office and that his office could help initiate that. The patient was discharged safely home with recommendations to follow with Dr. Nguyen at his first available appointment after he returns from vacation. She was also told to follow-up with his PCP within 2 weeks. Physical Exam Vital Signs: Temp Pulse Resp BP Pulse Ox 97.7 F 96 22 H 119/84 93 07/12/17 03:51 07/12/17 08:49 07/12/17 08:49 07/12/17 03:51 07/12/17 08:49 Intake & Output 07/11/17 07/12/17 07/13/17 06:59 06:59 06:59 Intake Total 822 2092 Balance 822 2092 Weight 61.8 kg 64.7 kg GENERAL: This is a well-developed and nourished appearing white female resting in bed on nc currently in no acute distress. HEART: Regular rate and rhythm. 2 out of 6 systolic ejection murmur. no rubs or gallops. LUNGS: diminished breath sounds bilaterally with equal rise and fall of the chest. ABDOMEN: Soft, nontender, nondistended with normoactive bowel sounds EXTREMETIES: No clubbing, cyanosis or edema. 2+ peripheral pulses bilaterally. NEURO: Awake, alert and oriented 3. Cranial nerves II through XII are grossly intact. Results Laboratory Results: 07/12/17 05:54 07/12/17 05:54 07/12/17 07/12/17 05:54 05:54 WBC 9.0 RBC 4.06 Hgb 12.7 Hct 37.1 MCV 91 MCH 31.3 MCHC 34.2 RDW 13.9 Plt Count 167 Seg Neutrophils % Not Reportable Lymphocytes % Not Reportable Monocytes % Not Reportable Eosinophils % Not Reportable Basophils % Not Reportable Absolute Neutrophils Not Reportable Absolute Lymphocytes Not Reportable Absolute Monocytes Not Reportable Absolute Eosinophils Not Reportable Absolute Basophils Not Reportable Sodium 139.6 Potassium 5.3 H Chloride 96 L Carbon Dioxide 35 H Anion Gap 9 BUN 22 H Creatinine 0.53 Est GFR ( Amer) > 60 Est GFR (Non-Af Amer) > 60 Glucose 134 H Calcium 9.1 07/04/17 16:00 Troponin I < 0.012 Impressions: Chest X-Ray 07/08/17 00:00 IMPRESSION: Obstructive lung disease. No acute changes Qualifiers PATEINT BEING DISCHARGED WITH ANY OF THE FOLLOWING DIAGNOSIS?: No Plan Time Spent: Greater than 30 Minutes
== END 2017-07-12 13:41 | disposition home health service (06) | DRG 189 ==
LOC: ER 11:29 → EH 14:52 → UNDOADMIN 15:17 → 3W 17:46
PROVIDERS: ADMIT Internal Medicine; ATTEND Internal Medicine
PROC: 5A09357 Assistance with Respiratory Ventilation, Less than 24 Consecutive Hours, Continuous Positive Airway Pressure (ICD-10-PCS; principal; 2017-07-04)
DX: J96.22 Acute and chronic respiratory failure with hypercapnia (principal); I50.33 Acute on chronic diastolic (congestive) heart failure; J44.1 Chronic obstructive pulmonary disease with (acute) exacerbation; E88.01 Alpha-1-antitrypsin deficiency; B37.3 Candidiasis of vulva and vagina; Z51.5 Encounter for palliative care; Z66 Do not resuscitate; I27.2 Other secondary pulmonary hypertension; K59.1 Functional diarrhea; G25.81 Restless legs syndrome; I11.0 Hypertensive heart disease with heart failure; M19.90 Unspecified osteoarthritis, unspecified site; Z90.710 Acquired absence of both cervix and uterus; F17.200 Nicotine dependence, unspecified, uncomplicated; Z79.82 Long term (current) use of aspirin; Z79.899 Other long term (current) drug therapy; Z88.8 Allergy status to other drugs, medicaments and biological substances; Z88.2 Allergy status to sulfonamides; Z99.81 Dependence on supplemental oxygen
CPT/HCPCS: 36415; 71020; 80048; 80053; 82550; 82553; 82803; 83690; 83735; 84439; 84443; 84481; 84484; 85025; 85610; 87040; 87070; 87086; 87205; 93005; 93010; 93306; 94640; 94660; 96365; 96375; 99291; J0692; J1650; J1940; J1956; J2920; J2930; J3490; J7030; J7620

== ENCOUNTER 2017-07-26 19:21 | Inpatient (IN) | payer MEDICARE, MEDICAID ==
[2017-07-26] MEDS ORDERED: ALBUTEROL SULFATE 0.083% NEB 2.5 MG/3 ML AMPUL NEB ONE (19:59)
[2017-07-26] MEDS ORDERED: ASPIRIN 81 MG TABLET, CHEWABLE PO ONE ×2 (19:59→20:45)
[2017-07-26] MEDS ORDERED: IPRATROPIUM/ALBUTEROL 0.5-2.5 MG/3 ML AMPUL NEB ONE ×2 (19:59→21:40)
--- NOTE | 2017-07-26 20:06 | ER Document Report ---
ED Medical Screen (RME) - General TRAVEL OUTSIDE OF THE [place] IN LAST 30 DAYS: No <ANDI MUNOZ - Last Filed: 07/26/17 20:07> <DONNAMINDAVIN - Last Filed: 07/26/17 20:57> - General Chief Complaint: Chest Pain > 30 Stated Complaint: CHEST PAIN Time Seen by Provider: 07/26/17 19:55 Notes: Patient is a 56 year old female presenting to the emergency department for shortness of breath and chest pain since Thursday. Patient states her pain radiates into her left arm and shoulder. Patient's symptoms are worse with walking. Patient states that her symptoms are worse than her baseline COPD. Patient is on O2 at home and she went from 4 L to 4.5 L today. Patient states that she took a baby ASA this morning. Patient is a former smoker. (ANDI MUNOZ) - Related Data Allergies/Adverse Reactions: doxepin [Doxepin] Allergy (Verified 07/04/17 11:47) Shortness of Breath, Swelling etodolac [Etodolac] Allergy (Verified 07/04/17 11:47) loratadine [Loratadine] Allergy (Verified 07/04/17 11:47) Shortness of Breath, Swelling meloxicam [Meloxicam] Allergy (Verified 07/04/17 11:47) Sulfa (Sulfonamide Antibiotics) Allergy (Verified 07/04/17 11:47) Shortness of Breath, Swelling Past Medical History - Social History Chew tobacco use (# tins/day): No Frequency of alcohol use: None Drug Abuse: None - Past Medical History Cardiac Medical History: Reports: Hx Congestive Heart Failure, Hx Hypertension Denies: Hx DVT, Hx Heart Attack, Hx Hypercholesterolemia, Hx Pulmonary Embolism Pulmonary Medical History: Reports: Hx Asthma, Hx Bronchitis, Hx COPD, Hx Pneumonia Neurological Medical History: Reports: Hx Migraine. Denies: Hx Seizures Endocrine Medical History: Denies: Hx Diabetes Mellitus Type 1, Hx Diabetes Mellitus Type 2, Hx Hyperthyroidism, Hx Hypothyroidism Renal/ Medical History: Denies: Hx Peritoneal Dialysis GI Medical History: Reports: Hx Gastroesophageal Reflux Disease. Denies: Hx Cirrhosis, Hx Hepatitis Musculoskeltal Medical History: Reports Hx Arthritis, Reports Hx Muscle Weakness Psychiatric Medical History: Denies: Hx Depression Traumatic Medical History: Reports: Hx Pneumothorax - x4 R lung, 2010 when the patient had a right lung bx required a chest tube Infectious Medical History: Denies: Hx Hepatitis Past Surgical History: Reports: Hx Gynecologic Surgery, Hx Hysterectomy, Hx Tonsillectomy, Hx Tubal Ligation - Immunizations Hx Diphtheria, Pertussis, Tetanus Vaccination: No History of Influenza Vaccine for 07/2017 - 12/2017 Season: Yes Influenza Administration Date for 07/2017 - 12/2017 Season: 07/01/17 <ANDI MUNOZ - Last Filed: 07/26/17 20:07> Physical Exam <ANDI MUNOZ - Last Filed: 07/26/17 20:07> <VIN STEWART - Last Filed: 07/26/17 20:57> - Vital signs Vitals: Temp Pulse Resp BP Pulse Ox 98.3 F 105 H 36 H 114/70 96 07/26/17 19:32 07/26/17 19:32 07/26/17 19:32 07/26/17 19:32 07/26/17 19:32 - Notes Notes: GENERAL: Alert, interacts well. Mild distress. LUNGS: Nasal cannula 4 L. Appears short of breath. Tachypnea. Expiratory wheezing. HEART: Regular rate and rhythm. No murmurs, gallops, or rubs. (ANDI MUNOZ) Course - Laboratory Result Diagrams: 07/26/17 20:35 07/26/17 20:35 <VIN STEWART - Last Filed: 07/26/17 20:57> - Vital Signs Vital signs: Temp Pulse Resp BP Pulse Ox 98.3 F 105 H 36 H 114/70 97 07/26/17 19:32 07/26/17 19:32 07/26/17 19:32 07/26/17 19:32 07/26/17 20:48 Scribe Documentation - Scribe Written by Scribe:: Pankaj Ivory 07/26/17 20:00 acting as scribe for :: Antonina <ANDI MUNOZ - Last Filed: 07/26/17 20:07>
[2017-07-26 20:53] LABS: HEMATOCRIT 35.5 % (36.0-47.0); HEMOGLOBIN 11.8 g/dL (12.0-15.5); HGB HCT DIFFERENCE -0.1; MEAN CORPUSCULAR HEMOGLOBIN 30.1 pg (27.0-33.4); MEAN CORPUSCULAR HGB CONC 33.4 g/dL (32.0-36.0); MEAN CORPUSCULAR VOLUME 90 fl (80-97); RED BLOOD COUNT 3.94 10^6/uL (3.72-5.28); RED CELL DISTRIBUTION WIDTH 14.3 % (11.5-14.0); WHITE BLOOD COUNT 22.4 10^3/uL (4.0-10.5)
[2017-07-26 21:10] LABS: ALANINE AMINOTRANSFERASE 23 U/L (9-52); ALBUMIN 4.6 g/dL (3.5-5.0); ALKALINE PHOSPHATASE 57 U/L (38-126); ANION GAP 10 (5-19); ASPARTATE AMINO TRANSFERASE 17 U/L (14-36); BILIRUBIN,DIRECT 0.4 mg/dL (0.0-0.4); BILIRUBIN,TOTAL 0.7 mg/dL (0.2-1.3); BLOOD UREA NITROGEN 15 mg/dL (7-20); CALCIUM 9.5 mg/dL (8.4-10.2); CARBON DIOXIDE 33 mmol/L (22-30); CHLORIDE 100 mmol/L (98-107); CREATINE KINASE 23 U/L (30-135); CREATININE RESULT 0.53 mg/dL (0.52-1.25); GLUCOSE 136 mg/dL (75-110); POTASSIUM 4.1 mmol/L (3.6-5.0)
[2017-07-26 21:17] LABS: BAND NEUTROPHILS % (MANUAL) 1 % (3-5); BASOPHILS % (MANUAL) 0 % (0-2); EOSINOPHILS % (MANUAL) 0 % (0-6); LYMPHOCYTES % (MANUAL) 3 % (13-45); TOTAL CELLS COUNTED 100
[2017-07-26 21:22] LABS: ANISOCYTOSIS SLIGHT; PLATELET CLUMPS PRESENT; POLYCHROMASIA SLIGHT; STOMATOCYTES SLIGHT
[2017-07-26 21:24] LABS: TROPONIN I < 0.012 ng/mL
[2017-07-26 21:30] LABS: PROTHROMBIN TIME 11.7 SEC (11.4-15.4)
[2017-07-26] MEDS ORDERED: METHYLPREDNISOLONE INJ 125 MG/2 ML SDV IV ONE (21:40)
[2017-07-26] MEDS ORDERED: MAGNESIUM SULFATE/D5W 1 GM/100 ML RTUPB IV PRN (21:40)
--- NOTE | 2017-07-26 21:44 | ER Document Report ---
ED Respiratory Problem - General Chief Complaint: Chest Pain > 30 Stated Complaint: CHEST PAIN Time Seen by Provider: 07/26/17 19:55 Notes: Patient is a 56-year-old female comes emergency department for chief complaint of difficulty breathing, productive cough, and chest pain worse on her right side and radiating to her right shoulder. Symptoms started 3 days ago, she states she has worsened. She has COPD, is on 4 L nasal cannula at all times, has a history of frequent admissions and pneumonia. She is a former smoker. She denies fever. She completed a steroid course over a week ago. She is not currently on any antibiotics. TRAVEL OUTSIDE OF THE [place] IN LAST 30 DAYS: No - Related Data Allergies/Adverse Reactions: doxepin [Doxepin] Allergy (Verified 07/04/17 11:47) Shortness of Breath, Swelling etodolac [Etodolac] Allergy (Verified 07/04/17 11:47) loratadine [Loratadine] Allergy (Verified 07/04/17 11:47) Shortness of Breath, Swelling meloxicam [Meloxicam] Allergy (Verified 07/04/17 11:47) Sulfa (Sulfonamide Antibiotics) Allergy (Verified 07/04/17 11:47) Shortness of Breath, Swelling Past Medical History - General Information source: Patient - Social History Smoking Status: Former Smoker Chew tobacco use (# tins/day): No Frequency of alcohol use: None Drug Abuse: None Lives with: Family Family History: Hyperlipidemia, Hypertension Patient has suicidal ideation: No Patient has homicidal ideation: No - Past Medical History Cardiac Medical History: Reports: Hx Congestive Heart Failure, Hx Hypertension Denies: Hx DVT, Hx Heart Attack, Hx Hypercholesterolemia, Hx Pulmonary Embolism Pulmonary Medical History: Reports: Hx Asthma, Hx Bronchitis, Hx COPD, Hx Pneumonia Neurological Medical History: Reports: Hx Migraine. Denies: Hx Seizures Endocrine Medical History: Denies: Hx Diabetes Mellitus Type 1, Hx Diabetes Mellitus Type 2, Hx Hyperthyroidism, Hx Hypothyroidism Renal/ Medical History: Denies: Hx Peritoneal Dialysis GI Medical History: Reports: Hx Gastroesophageal Reflux Disease. Denies: Hx Cirrhosis, Hx Hepatitis Musculoskeltal Medical History: Reports Hx Arthritis, Reports Hx Muscle Weakness Psychiatric Medical History: Denies: Hx Depression Traumatic Medical History: Reports: Hx Pneumothorax - x4 R lung, 2010 when the patient had a right lung bx required a chest tube Infectious Medical History: Denies: Hx Hepatitis Past Surgical History: Reports: Hx Gynecologic Surgery, Hx Hysterectomy, Hx Tonsillectomy, Hx Tubal Ligation - Immunizations Hx Diphtheria, Pertussis, Tetanus Vaccination: No Hx Pneumococcal Vaccination: 04/25/09 Review of Systems - Review of Systems Constitutional: No symptoms reported EENT: No symptoms reported Cardiovascular: No symptoms reported Respiratory: See HPI Gastrointestinal: No symptoms reported Genitourinary: No symptoms reported Female Genitourinary: No symptoms reported Musculoskeletal: No symptoms reported Skin: No symptoms reported Hematologic/Lymphatic: No symptoms reported Neurological/Psychological: No symptoms reported Physical Exam - Vital signs Vitals: Temp Pulse Resp BP Pulse Ox 98.3 F 105 H 36 H 114/70 96 07/26/17 19:32 07/26/17 19:32 07/26/17 19:32 07/26/17 19:32 07/26/17 19:32 Interpretation: Normal - General General appearance: Alert, Anxious In distress: Mild - HEENT Head: Normocephalic, Atraumatic Eyes: Normal Pupils: PERRL - Respiratory Respiratory status: Respiratory distress Breath sounds: Decreased air movement, Wheezing Chest palpation: Normal - Cardiovascular Rhythm: Regular, Tachycardia Heart sounds: Normal auscultation, S1 appreciated, S2 appreciated Murmur: No - Abdominal Inspection: Normal Distension: No distension Bowel sounds: Normal Tenderness: Nontender. No: Tender, Guarding Organomegaly: No organomegaly - Back Back: Normal, Nontender - Extremities General upper extremity: Normal inspection, Nontender, Normal color, Normal ROM , Normal temperature General lower extremity: Normal inspection, Nontender, Normal color, Normal ROM , Normal temperature, Normal weight bearing. No: Sami's sign - Neurological Neuro grossly intact: Yes Cognition: Normal Orientation: AAOx4 Niall Coma Scale Eye Opening: Spontaneous [place] Coma Scale Verbal: Oriented [place] Coma Scale Motor: Obeys Commands [place] Coma Scale Total: 15 Speech: Normal Motor strength normal: LUE, RUE, LLE, RLE Sensory: Normal - Psychological Associated symptoms: Normal affect, Normal mood - Skin Skin Temperature: Warm Skin Moisture: Dry Skin Color: Normal Course - Re-evaluation Re-evalutation: On initial evaluation patient has mild respiratory distress with tachypnea, tachycardia, she is not hypoxic. Wheezing on expiration with decreased breath sounds throughout. Patient given DuoNeb's, Solu-Medrol, magnesium. Patient will be closely monitored. On reevaluation patient is actually very well-appearing, she has mild tachypnea but she appears much improved. She states she feels much improved. Venous blood gas does not show hypercarbic acidosis. I did discuss BiPAP with patient but this was deferred at this time because she is doing well. Chest x-ray does not show any acute abnormalities. CBC shows leukocytosis but patient has recently completed steroids. Patient was given cefepime because of productive cough. Chemistry unremarkable. Patient got up to to get on the bedside toilet and did very poorly, began having very labored breathing again. She cannot perform any activity/exertion currently, and patient confirms this is significantly below her baseline. Patient will require admission. Discussed with Dr. Black, patient will be admitted to the [facility]. Patient is in full agreement with this. - Vital Signs Vital signs: Temp Pulse Resp BP Pulse Ox 97.3 F 90 30 H 106/57 L 99 07/27/17 04:26 07/27/17 04:26 07/27/17 04:59 07/27/17 04:26 07/27/17 04:26 - Laboratory Result Diagrams: 07/26/17 20:35 07/26/17 20:35 Laboratory results interpreted by me: 07/26/17 07/26/17 07/26/17 20:35 20:35 20:35 WBC 22.4 H Hgb 11.8 L Hct 35.5 L RDW 14.3 H Plt Count 115 L Seg Neuts % (Manual) 94 H Band Neutrophils % 1 L Lymphocytes % (Manual) 3 L Monocytes % (Manual) 1 L Abs Neuts (Manual) 21.3 H VBG HCO3 34.7 H Carbon Dioxide 33 H Glucose 136 H Creatine Kinase 23 L Discharge - Discharge Clinical Impression: COPD exacerbation, Shortness of breath, Right-sided chest pain, Productive cough Condition: Stable Disposition: ADMITTED INPATIENT Admitting Provider: Hospitalist Unit Admitted: [facility]
[2017-07-26] MEDS ORDERED: CEFEPIME 2 GM/D5W RTU 2 GM/50 ML RTUPB IV SCH (21:45)
--- NOTE | 2017-07-26 21:47 | RADIOLOGY REPORT (SQ) ---
EXAM DESCRIPTION: CHEST SINGLE VIEW COMPLETED DATE/TIME: 07/26/2017 9:33 pm REASON FOR STUDY: SOB, chest pain COMPARISON: 07/08/2017 NUMBER OF VIEWS: One view. TECHNIQUE: Single frontal radiographic view of the chest acquired. LIMITATIONS: None. FINDINGS: LUNGS AND PLEURA: No opacities, masses or pneumothorax. No pleural effusion. Attenuated bl ood vessels and flattened harini-diaphragms. MEDIASTINUM AND HILAR STRUCTURES: No masses. Contour normal. HEART AND VASCULAR STRUCTURES: Heart normal in size. Normal vasculature. BONES: No acute findings. HARDWARE: None in the chest. OTHER: No other significant finding. IMPRESSION: COPD. NO ACUTE RADIOGRAPHIC FINDING IN THE CHEST. TECHNICAL DOCUMENTATION: JOB ID: [id number] [employer]- All Rights Reserved
[2017-07-26 21:48] LABS: VENOUS BLOOD BASE EXCESS 7.4 mmol/L; VENOUS BLOOD HCO3 34.7 mmol/L (20-32); VENOUS BLOOD PCO2 61.9 mmHg (35-63); VENOUS BLOOD PH 7.37 (7.30-7.42)
[2017-07-26] MEDS ORDERED: MORPHINE SULFATE 10 MG/ML INJ IV ONE (22:22)
[2017-07-26 23:38] LABS: ADD ON TESTING BLD IN LAB ACKNOWLEDGE
[2017-07-26 23:57] LABS: MAGNESIUM 1.9 mg/dL (1.6-2.3)
[2017-07-27] MEDS ORDERED: GLUCAGON,HUMAN RECOMB 1 MG INJ IM PRN (00:23)
[2017-07-27] MEDS ORDERED: DEXTROSE 50%-WATER 25 GM/50 ML DISP.SYRIN IV PRN ×2 (00:23)
[2017-07-27] MEDS ORDERED: DEXTROSE 40% GEL 15 GM TUBE PO PRN ×2 (00:23)
[2017-07-27] MEDS ORDERED: 1/2 NORMAL SALINE 1,000 ML IV PRN (00:27)
[2017-07-27] MEDS ORDERED: GUAIFENESIN SYRP 200 MG/10 ML UDC PO PRN (00:27)
[2017-07-27] MEDS ORDERED: VANCOMYCIN HCL 0 MG in DEXTROSE 5%-WATER 250 ML IV NR (00:30)
[2017-07-27] MEDS ORDERED: LEVOFLOXACIN 750 MG/D5W RTU 750 MG/150 ML RTUPB IV SCH ×2 (01:00→22:00)
[2017-07-27] MEDS ORDERED: VANCOMYCIN HCL INJ 1000 MG VIAL IV PRN (01:08)
[2017-07-27 01:17] LABS: VENOUS BLOOD BASE EXCESS 6.4 mmol/L; VENOUS BLOOD HCO3 33.8 mmol/L (20-32); VENOUS BLOOD PCO2 63.6 mmHg (35-63); VENOUS BLOOD PH 7.34 (7.30-7.42)
--- NOTE | 2017-07-27 01:43 | PDOC H&P ---
History of Present Illness Admission Date/PCP: 07/26/17 23:[address] Petar metz Pulm Dr. Plunkett (sp.??) Patient complains of: Difficulty breathing History of Present Illness: AUDIE KIMBLE is a 56 year old female with home O2 and BiPAP ( Jodie BiPAP) dependent end-stage COPD, along with underlying alpha-1 antitrypsin deficiency, well-known to the hospitalist service for prior admissions for respiratory difficulty, presents to the emergency room yet again for same. Describes a 3 day history of slowly progressive difficulty breathing, in particular with much of any exertion. Cough productive of yellow sputum. Sharp right-sided chest pain that radiates to her right shoulder, typically only with a cough. States that she intermittently "feels hot." Some nausea, no vomiting, diarrhea or dysuria. Hospitalized on our service the through the of last month with final diagnoses including acute and chronic respiratory failure with hypercapnia and COPD with acute exacerbation along with acute on chronic diastolic congestive heart failure. Discharge summary has been reviewed. Just finished a course of steroids from that hospital stay the other day. Admitted to our service March 09 of this year with admission diagnoses including acute and chronic respiratory failure with hypercapnia and COPD exacerbation. History and physical has been reviewed. Patient has been discussed with emergency room PA who evaluated the patient. Dictation via voice recognition software. Laboratory results are listed in [facility] and are reviewed. X-ray summary results are listed below, with full report(s) reviewed. EKG reviewed. Social history/personal habits: . 2 children. No alcohol or illicit drug use. No tobacco use since last April. Allergies/adverse reactions are listed in [facility] and are reviewed. Home medications initially autopopulated into [facility] may not accurately reflect patient's true medications, dosages, and/or frequencies. 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 Unfortunately, patient not certain of all medications/dosages/frequencies. REVIEW OF SYSTEMS: Constitutional: See history and present illness. Eyes: Wears glasses. ENT: Mild occasional dysphagia, without aspiration; states Dr. Metz is aware. Denies hearing loss. Pulmonary: See history and present illness. Cardiovascular: See history and present illness. Gastrointestinal: See history and present illness. Skin: No current complaints, including rashes. Hematologic: Easy bruising. Neurologic: No current complaints, including numbness or tingling. Musculoskeletal: Joint pain from arthritis. Psychiatric: Denies anxiety or depression. Endocrine: No current complaints, including polyuria. Genitourinary: No current complaints, including dysuria. 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 5 feet 5 inches tall. 57.5 kg. BMI 21.1 kg/m. Blood pressure 122/75. Pulse 91 and regular. 96% saturation on 4 L oxygen per nasal cannula. Respirations are 30 with no obvious use of accessory respiratory muscles. Temperature 98.3. Thin chronically ill-appearing female who appears a number of years older than her stated age. Pleasant awake alert and cooperative. Appears perhaps slightly fatigued, and to feel somewhat under the weather, so to speak. Mildly anxious, without agitation. Skin is warm and dry. No grossly obvious evidence of rash in areas of skin examined. No subcutaneous nodules palpated. ENT: Hearing grossly normal to normal conversation. Tongue midline on protrusion pink and slightly tacky. Eyes: No scleral icterus. Pupils equal and reactive to light at 4 mm. [place] conjunctivae. Neck is supple and nontender to gentle active range of motion and palpation. Midline trachea. No palpable thyroid nodule mass enlargement or tenderness. Lymphatic: No palpable cervical or clavicular nodes. Neck and lymphatic exams limited by patient body habitus. Psychiatric: Reasonable insight into acute and chronic medical issues. Oriented to time location and why here. Lungs: Auscultation reveals equal breath sounds bilaterally. No use of accessory respiratory muscles. Scattered faintly coarse breath sounds bilaterally. Cardiovascular: Heart regular rate and rhythm, without gallop murmur or rub. No carotid or abdominal aortic bruits. No ankle or pedal edema. Faintly palpable dorsalis pedis pulses. Abdomen:soft slightly distended nontender with positive bowel sounds. Unable to adequately evaluate abdomen for masses or organomegaly due to distention. Extremities: Feet are warm and dry. No calf tenderness to compression. No grossly obvious visual evidence of calf swelling. Gentle manipulation of lower extremities fails to reveal any obvious evidence of injury or instability to knees hips or ankles. Neurologic: Moves upper extremities grossly normally. Patellar reflexes absent. Absent Babinski. Light touch is intact at feet. Dorsiflexion and plantarflexion of feet 5 / 5 and symmetric. Past Medical History Cardiac Medical History: Reports: Congestive Heart Failure - Diastolic, Hypertension Denies: Atrial Fibrillation, DVT, Myocardial Infarction, Hyperlipidema, Pulmonary Embolism Pulmonary Medical History: Reports: Asthma, Bronchitis, Chronic Obstructive Pulmonary Disease (COPD) - home O2 & BIPAP-dependent, Pneumonia, Other - Alpha- 1 antitrypsin deficiency Neurological Medical History: Reports: Migraine Denies: Hemorrhagic CVA, Ischemic CVA, Seizures Endocrine Medical History: Denies: Diabetes Mellitus Type 1, Diabetes Mellitus Type 2, Hyperthyroidism, Hypothyroidism Renal/ Medical History: Reports: None GI Medical History: Reports: Gastroesophageal Reflux Disease Denies: Cirrhosis, Hepatitis, Peptic Ulcer Disease Musculoskeltal Medical History: Reports: Arthritis Skin Medical History: Reports: None Psychiatric Medical History: Denies: Alcohol Dependency, Depression, General Anxiety Disorder, Substance Abuse, Tobacco Dependency Traumatic Medical History: Reports: Pneumothorax - x4 R lung, 2010 when the patient had a right lung bx required a chest tube Hematology: Reports: Other - Easy bruising Infectious Medical History: Denies: Hepatitis B, Hepatitis C Past Surgical History Past Surgical History: Reports: Hysterectomy, Tonsillectomy, Tubal Ligation Social History Information Source: Patient, Emergency Med Personnel, [facility] Records Lives with: Spouse/Significant other Smoking Status: Former Smoker Frequency of Alcohol Use: None Hx Recreational Drug Use: No Drugs: None Hx Prescription Drug Abuse: No - Advance Directive Resuscitation Status: Full Code Surrogate healthcare decision maker:: Family History Family History: Hyperlipidemia, Hypertension Parental Family History Reviewed: Yes - Mother with hypertension. Father ; alpha-1 antitrypsin deficiency Children Family History Reviewed: Yes - Daughter alpha-1 antitrypsin carrier. Sibling(s) Family History Reviewed.: Yes - Brother with asthma and COPD Medication/Allergy Home Medications: Albuterol Sulfate [Proair HFA] 2 puff IH Q4HP PRN 07/27/17 Ipratropium [place] [Atrovent 0.02% Neb 0.5 Mg/2.5 Ml Vial.Neb] 0.5 mg IH RTQ4HP PRN 07/27/17 Levalbuterol Tartrate [Xopenex Hfa] 2 gm IH Q4HP PRN 07/27/17 Lisinopril [Prinivil 2.5 mg Tablet] 2.5 mg PO DAILY 07/27/17 Ondansetron HCl [Zofran 4 mg Tablet] 1 tab PO BIDP PRN 07/27/17 RX: Albuterol Sulfate [Albuterol Sulfate 2.5mg/3 mL] 1 vial IH Q4HP PRN RX: Aspirin [Aspirin EC] 81 mg PO DAILY 07/27/17 RX: Budesonide/Formoterol Fumarate [Symbicort HFA 160-4.5 mcg Inhaler 6 gm] 2 puff IH Q12 07/27/17 RX: Ergocalciferol (Vitamin D2) [Drisdol 50,000 unit (1.25MG) Capsule] 1 cap PO Q4DDEPV 07/27/17 RX: Fluticasone Propionate [Flonase Nasal [place] 50 Mcg/[place] 16 gm] 1 spray NASL BID 07/27/17 RX: Levocetirizine Dihydrochloride [Xyzal] 5 mg PO QHS 07/27/17 RX: Montelukast Sodium [Singulair 10 mg Tablet] 10 mg PO DAILY 07/27/17 RX: Roflumilast [Daliresp 500 mcg Tablet] 500 mcg PO DAILY 07/27/17 RX: Ropinirole HCl [Requip] 1 mg PO QHS 07/27/17 Ranitidine HCl [Zantac] 150 mg PO DAILY 07/27/17 Levofloxacin [Levaquin 750 mg Tablet] 750 mg PO DAILY #7 tab 08/01/17 RX: Acetaminophen [Tylenol 325 mg Tablet] 650 mg PO Q4HP PRN tablet 08/01/17 RX: Atenolol [Tenormin 50 mg Tablet] 25 mg PO DAILY tablet 08/01/17 RX: Butalb/Acetaminophen/Caffeine [Fioricet (50-325-40 mg) Tablet] 2 tab PO Q6HP PRN each 08/01/17 RX: Cyclobenzaprine HCl [Flexeril 10 mg Tablet] 10 mg PO Q8HP PRN tablet RX: Famotidine [Pepcid 20 mg Tablet] 20 mg PO Q12 tablet 08/01/17 RX: Furosemide [Lasix 20 mg Tablet] 20 mg PO DAILY tablet 08/01/17 RX: Furosemide [Lasix 20 mg Tablet] 20 mg PO DAILYP PRN #30 tablet 08/01/17 RX: Levofloxacin [Levaquin 750 mg Tablet] 750 mg PO QHS tablet 08/01/17 RX: Prednisone [Deltasone 20 mg Tablet] 60 mg PO DAILY@1100 tablet 08/01/17 Allergies/Adverse Reactions: doxepin [Doxepin] Allergy (Verified 07/04/17 11:47) Shortness of Breath, Swelling etodolac [Etodolac] Allergy (Verified 07/04/17 11:47) loratadine [Loratadine] Allergy (Verified 07/04/17 11:47) Shortness of Breath, Swelling meloxicam [Meloxicam] Allergy (Verified 07/04/17 11:47) Sulfa (Sulfonamide Antibiotics) Allergy (Verified 07/04/17 11:47) Shortness of Breath, Swelling Physical Exam Vital Signs: Temp Pulse Resp BP Pulse Ox 98.3 F 105 H 35 H 97/56 L 98 07/26/17 19:32 07/26/17 19:32 07/27/17 01:01 07/27/17 01:01 07/27/17 01:01 Results Laboratory Results: 07/26/17 23:59 VBG pH 7.34 VBG pCO2 63.6 H VBG HCO3 33.8 H VBG Base Excess 6.4 07/26/17 23:59 Troponin I < 0.012 Impressions: Chest X-Ray 07/26/17 19:59 IMPRESSION: COPD. NO ACUTE RADIOGRAPHIC FINDING IN THE CHEST. Assessment & Plan - Diagnosis (1) COPD exacerbation Is this a current diagnosis for this admission?: Yes (2) DNI (do not intubate) Is this a current diagnosis for this admission?: Yes Plan: Implications of DO NOT INTUBATE status discussed with patient. Discussed in layperson's terms. Implications understood. Patient is the health care decision maker. Patient conversation is lucid and appropriate. Patient desires DO NOT INTUBATE status. Will honor patient wishes. (3) Right-sided chest pain Is this a current diagnosis for this admission?: Yes Plan: Unlikely this is cardiac in origin, but will trend troponins. (4) BiPAP (biphasic positive airway pressure) dependence Is this a current diagnosis for this admission?: Yes (5) Oxygen dependent Is this a current diagnosis for this admission?: Yes Plan: Maintain oxygen saturations between 90 and 94%; order entered into electronic health record. (6) Acute and chronic respiratory failure with hypercapnia Is this a current diagnosis for this admission?: Yes Plan: Patient will be admitted under COPD exacerbation protocol. Incentive spirometry twice a day. Scheduled DuoNeb's. As needed albuterol nebs. Solu-Medrol. Prevacid for gastritis prophylaxis. Antibiotics will consist of intravenous vancomycin and Levaquin, along with cefepime, given patient's frequent hospital stays with antibiotic usage. Pharmacy to assist with vancomycin dosing. I strongly encouraged patient to notify staff should patient feel that breathing is worsening. I have strongly encouraged patient not to get out of bed without notifying staff , to avoid a fall with injury. Knee high SCDs for DVT prophylaxis; with underlying thrombocytopenia, will forego Lovenox or heparin at this point in time. Impression and plans were discussed with patient who concurs. Time spent in evaluation and management of patient: 65 minutes. (7) [id number] deficiency Is this a current diagnosis for this admission?: Yes (8) Anemia Qualifiers: Anemia type: unspecified type Qualified Code(s): D64.9 - Anemia, unspecified Is this a current diagnosis for this admission?: Yes Plan: Follow-up CBC with differential. No need for transfusion at present time. (9) Diastolic CHF Qualifiers: Congestive heart failure chronicity: chronic Qualified Code(s): I50.32 - Chronic diastolic (congestive) heart failure Is this a current diagnosis for this admission?: Yes Plan: No evidence of acute exacerbation of same. Resume home medications as appropriate once these have been determined and reviewed. (10) Thrombocytopenia Is this a current diagnosis for this admission?: Yes Plan: Will forego Lovenox or heparin at this point in time. Follow-up CBC with differential. - Time Time Spent: 50 to 70 Minutes Medications reviewed and adjusted accordingly: No - Patient uncertain medications. Anticipated discharge: Home Within: Other - Inpatient Certification Based on my medical assessment, after consideration of the patient's comorbidities, presenting symptoms, or acuity I expect that the services needed warrant INPATIENT care.: Yes I certify that my determination is in accordance with my understanding of Medicare's requirements for reasonable and necessary INPATIENT services [42 CFR 412.3e].: Yes Medical Necessity: Significant Comorbidiites Make Outpatient Treatment Too Risky , Need Close Monitoring Due to Risk of Patient Decompensation, Need For IV Fluids, Need For Continuous Telemetry Monitoring, Need for Nebulizer Therapy and Monitoring of Response, Need for IV Antibiotics, Risk of Diagnosis Which Will Require Inpatient Eval/Care/Monitoring Post Hospital Care: D/C or Transfer Summary
[2017-07-27] MEDS ORDERED: VANCOMYCIN HCL 1,000 MG in DEXTROSE 5%-WATER 250 ML IV ONE (03:00)
[2017-07-27] MEDS ORDERED: VANCOMYCIN HCL INJ 1000 MG VIAL ONE (03:19)
[2017-07-27] MEDS ORDERED: LEVOFLOXACIN 750 MG/D5W RTU 750 MG/150 ML RTUPB IV ONE (03:30)
[2017-07-27 04:49] LABS: APPEARANCE,URINE CLEAR; BILIRUBIN,URINE NEGATIVE (NEGATIVE); GLUCOSE, URINE NEGATIVE (NEGATIVE); KETONES,URINE NEGATIVE (NEGATIVE); LEUKOCYTE ESTERASE,URINE NEGATIVE (NEGATIVE); NITRITE,URINE NEGATIVE (NEGATIVE); PROTEIN,URINE NEGATIVE (NEGATIVE); URINE SPECIFIC GRAVITY 1.009; UROBILINOGEN,URINE NEGATIVE mg/dL (<2.0)
[2017-07-27] MEDS: LANSOPRAZOLE 30 MG TAB.RAP.DR PO SCH ×2 (05:26→16:11)
[2017-07-27] MEDS ORDERED: METHYLPREDNISOLONE INJ 40 MG/1 ML SDV IV SCH ×2 (06:00→12:00)
--- NOTE | 2017-07-27 06:24 | EKG REPORT ---
SEVERITY:- OTHERWISE NORMAL ECG - SINUS TACHYCARDIA : Confirmed by: Shana Greene MD 27-Jul-2017 06:24:09
[2017-07-27 06:55] LABS: VENOUS BLOOD BASE EXCESS 6.9 mmol/L; VENOUS BLOOD HCO3 34.4 mmol/L (20-32); VENOUS BLOOD PCO2 64.8 mmHg (35-63); VENOUS BLOOD PH 7.34 (7.30-7.42)
[2017-07-27 07:11] LABS: ANION GAP 12 (5-19); BLOOD UREA NITROGEN 14 mg/dL (7-20); CALCIUM 9.3 mg/dL (8.4-10.2); CARBON DIOXIDE 33 mmol/L (22-30); CHLORIDE 99 mmol/L (98-107); GLUCOSE 98 mg/dL (75-110); POTASSIUM 4.8 mmol/L (3.6-5.0); SODIUM 143.6 mmol/L (137-145)
[2017-07-27 07:19] LABS: HEMATOCRIT 32.3 % (36.0-47.0); HEMOGLOBIN 10.9 g/dL (12.0-15.5); HGB HCT DIFFERENCE 0.4; MEAN CORPUSCULAR HEMOGLOBIN 30.6 pg (27.0-33.4); MEAN CORPUSCULAR HGB CONC 33.9 g/dL (32.0-36.0); MEAN CORPUSCULAR VOLUME 90 fl (80-97); RED BLOOD COUNT 3.58 10^6/uL (3.72-5.28); RED CELL DISTRIBUTION WIDTH 14.4 % (11.5-14.0); WHITE BLOOD COUNT 22.4 10^3/uL (4.0-10.5)
[2017-07-27] MEDS: IPRATROPIUM/ALBUTEROL 0.5-2.5 MG/3 ML AMPUL NEB SCH ×3 (07:44→20:13)
[2017-07-27 08:03] LABS: BAND NEUTROPHILS % (MANUAL) 3 % (3-5); BASOPHILS % (MANUAL) 0 % (0-2); EOSINOPHILS % (MANUAL) 0 % (0-6); LYMPHOCYTES % (MANUAL) 0 % (13-45); TOTAL CELLS COUNTED 100
[2017-07-27 08:04] LABS: ANISOCYTOSIS SLIGHT; TOXIC GRANULATION SLIGHT
[2017-07-27] MEDS: CEFEPIME 1 GM/D5W RTU 1 GM/50 ML RTUPB IV SCH ×2 (09:13→20:42)
[2017-07-27] MEDS ORDERED: CYANOCOBALAMIN (VITAMIN B-12) INJ 1000 MCG/1 ML VIAL IM ONE (10:30)
[2017-07-27] MEDS: FAMOTIDINE 20 MG TABLET PO SCH ×2 (10:42→20:42)
[2017-07-27] MEDS: METHYLPREDNISOLONE INJ 125 MG/2 ML SDV IV SCH ×3 (11:22→23:37)
[2017-07-27] MEDS: ALBUTEROL SULFATE 0.083% NEB 2.5 MG/3 ML AMPUL NEB PRN (12:48)
[2017-07-27] MEDS: ACETAMINOPHEN 325 MG TABLET PO PRN ×2 (13:35→18:31)
[2017-07-27] MEDS: VANCOMYCIN HCL 750 MG in DEXTROSE 5%-WATER 250 ML IV SCH ×2 (13:40→23:33)
--- NOTE | 2017-07-27 17:04 | PDOC PROGRESS REPORT ---
Subjective Progress Note for:: 07/27/17 Subjective:: Patient reports that she is hungry. She reported she was having yellow purulent sputum prior to admission. Patient denies abdominal pain, nausea, vomiting, fevers, chills, diarrhea, constipation, headache, new onset weakness. Patient reported she was having chest pain right-sided prior to admission, but is currently chest pain-free She reports that she completed her course of prednisone on Thursday Physical Exam Vital Signs: Temp Pulse Resp BP Pulse Ox 97.3 F 90 30 H 106/57 L 99 07/27/17 04:26 07/27/17 04:26 07/27/17 04:59 07/27/17 04:26 07/27/17 04:26 Intake & Output 07/26/17 07/27/17 07/28/17 06:59 06:59 06:59 Weight 61 kg Exam: General: Cushingoid, Awake alert and oriented x3, flushed, mild-moderate respiratory distress HEENT: AT/NC, PERRL, EOMI, oropharynx is moist, pink, no scleral icterus, no conjunctival injection Neck: No JVD, trachea midline Chest: Prolonged expiratory phase, poor air excursion, bilateral end expiratory wheezing CV: Regular rate and rhythm, normal S1 and S2, no murmur, rub, or gallop Abdomen: Soft, nontender to palpation, nondistended, active bowel sounds; no rebound, rigidity, or guarding Extremities: No cyanosis, clubbing, edema Neuro: Cranial nerves II through XII are grossly intact without focal deficits; awake alert and oriented x3 Psych: Normal mood and affect Results Laboratory Results: 07/27/17 06:45 07/26/17 07/27/17 07/27/17 23:59 04:25 06:45 Seg Neutrophils % Not Reportable Lymphocytes % Not Reportable Monocytes % Not Reportable Eosinophils % Not Reportable Basophils % Not Reportable Absolute Neutrophils Not Reportable Absolute Lymphocytes Not Reportable Absolute Monocytes Not Reportable Absolute Eosinophils Not Reportable Absolute Basophils Not Reportable VBG pH 7.34 VBG pCO2 63.6 H VBG HCO3 33.8 H VBG Base Excess 6.4 Sodium Potassium Chloride Carbon Dioxide Anion Gap BUN Creatinine Est GFR ( Amer) Est GFR (Non-Af Amer) Glucose Calcium Urine Color YELLOW Urine Appearance CLEAR Urine pH 5.0 Ur Specific [place] 1.009 Urine Protein NEGATIVE Urine Glucose (UA) NEGATIVE Urine Ketones NEGATIVE Urine Blood SMALL H Urine Nitrite NEGATIVE Ur Leukocyte Esterase NEGATIVE Urine WBC (Auto) 1 07/27/17 07/27/17 06:45 06:45 Seg Neutrophils % Lymphocytes % Monocytes % Eosinophils % Basophils % Absolute Neutrophils Absolute Lymphocytes Absolute Monocytes Absolute Eosinophils Absolute Basophils VBG pH 7.34 VBG pCO2 64.8 H VBG HCO3 34.4 H VBG Base Excess 6.9 Sodium 143.6 Potassium 4.8 Chloride 99 Carbon Dioxide 33 H Anion Gap 12 BUN 14 Creatinine 0.50 L Est GFR ( Amer) > 60 Est GFR (Non-Af Amer) > 60 Glucose 98 Calcium 9.3 Urine Color Urine Appearance Urine pH Ur Specific [place] Urine Protein Urine Glucose (UA) Urine Ketones Urine Blood Urine Nitrite Ur Leukocyte Esterase Urine WBC (Auto) 07/26/17 07/27/17 23:59 06:45 Troponin I < 0.012 < 0.012 Impressions: Chest X-Ray 07/26/17 19:59 IMPRESSION: COPD. NO ACUTE RADIOGRAPHIC FINDING IN THE CHEST. Assessment & Plan - Diagnosis (1) COPD exacerbation Is this a current diagnosis for this admission?: Yes Plan: Will increase patient's Solu-Medrol to 125 mg IV every 6. Continue BiPAP. At this time, I feel the patient is likely becoming steroid dependent and will likely need to be on low-dose chronic prednisone at home. Concern for underlying organisms and continue cefepime. (2) Right-sided chest pain Is this a current diagnosis for this admission?: Yes Plan: Cardiac enzymes currently negative, likely secondary to pleuritic pain (3) BiPAP (biphasic positive airway pressure) dependence Is this a current diagnosis for this admission?: Yes Plan: May use BiPAP here (4) Oxygen dependent Is this a current diagnosis for this admission?: Yes (5) Acute and chronic respiratory failure with hypercapnia Is this a current diagnosis for this admission?: Yes (6) [id number] deficiency Is this a current diagnosis for this admission?: Yes (7) Anemia Qualifiers: Anemia type: unspecified type Qualified Code(s): D64.9 - Anemia, unspecified Is this a current diagnosis for this admission?: Yes (8) Diastolic CHF Qualifiers: Congestive heart failure chronicity: chronic Qualified Code(s): I50.32 - Chronic diastolic (congestive) heart failure Is this a current diagnosis for this admission?: Yes (9) Pulmonary hypertension Is this a current diagnosis for this admission?: Yes (10) DNI (do not intubate) Is this a current diagnosis for this admission?: Yes - Time Time Spent with patient: 25-34 minutes Medications reviewed and adjusted accordingly: Yes Anticipated discharge: Home with Homehealth
[2017-07-27] MEDS ORDERED: ERGOCALCIFEROL (VITAMIN D2) 50000 UNIT (1.25 MG) CAPSULE PO SCH (19:00)
[2017-07-27] MEDS: ROPINIROLE HCL 1 MG TABLET PO SCH (20:41)
[2017-07-27] MEDS: BUDESONIDE/FORMOTEROL 160-4.5 MCG 60 PUFF/6 GM MDI IH SCH (20:42)
[2017-07-27] MEDS: CETIRIZINE 5 MG TABLET PO SCH (21:44)
[2017-07-27] MEDS ORDERED: (PENDING PHARMACY ID) (Ropinirole Hcl [Requip] 1 MG) PO SCH (22:00)
[2017-07-28] MEDS: ALBUTEROL SULFATE 0.083% NEB 2.5 MG/3 ML AMPUL NEB PRN (04:23)
[2017-07-28] MEDS: METHYLPREDNISOLONE INJ 125 MG/2 ML SDV IV SCH ×3 (05:00→22:38)
[2017-07-28] MEDS: VANCOMYCIN HCL 750 MG in DEXTROSE 5%-WATER 250 ML IV SCH (05:00)
[2017-07-28] MEDS: LANSOPRAZOLE 30 MG TAB.RAP.DR PO SCH ×2 (05:00→17:49)
[2017-07-28 06:42] LABS: ANION GAP 10 (5-19); BLOOD UREA NITROGEN 19 mg/dL (7-20); CALCIUM 9.2 mg/dL (8.4-10.2); CARBON DIOXIDE 31 mmol/L (22-30); CHLORIDE 99 mmol/L (98-107); CREATININE RESULT 0.58 mg/dL (0.52-1.25); GLUCOSE 158 mg/dL (75-110); POTASSIUM 4.3 mmol/L (3.6-5.0); SODIUM 139.9 mmol/L (137-145)
[2017-07-28 06:51] LABS: HEMATOCRIT 30.4 % (36.0-47.0); HEMOGLOBIN 10.3 g/dL (12.0-15.5); HGB HCT DIFFERENCE 0.5; MEAN CORPUSCULAR HEMOGLOBIN 30.4 pg (27.0-33.4); MEAN CORPUSCULAR HGB CONC 33.9 g/dL (32.0-36.0); MEAN CORPUSCULAR VOLUME 90 fl (80-97); RED CELL DISTRIBUTION WIDTH 14.2 % (11.5-14.0); WHITE BLOOD COUNT 13.8 10^3/uL (4.0-10.5)
[2017-07-28 06:59] LABS: BAND NEUTROPHILS % (MANUAL) 2 % (3-5); BASOPHILS % (MANUAL) 0 % (0-2); EOSINOPHILS % (MANUAL) 0 % (0-6); LYMPHOCYTES % (MANUAL) 2 % (13-45); TOTAL CELLS COUNTED 100
[2017-07-28 07:00] LABS: ANISOCYTOSIS SLIGHT; POLYCHROMASIA SLIGHT
[2017-07-28] MEDS: IPRATROPIUM/ALBUTEROL 0.5-2.5 MG/3 ML AMPUL NEB SCH ×3 (07:55→19:32)
[2017-07-28] MEDS: FAMOTIDINE 20 MG TABLET PO SCH ×2 (09:57→22:35)
[2017-07-28] MEDS: ASPIRIN 81 MG TABLET, ENT COATED PO SCH (09:57)
[2017-07-28] MEDS: MONTELUKAST SODIUM 10 MG TABLET PO SCH (09:58)
[2017-07-28] MEDS: ATENOLOL 50 MG TABLET PO SCH (09:58)
[2017-07-28] MEDS ORDERED: (PENDING PHARMACY ID) (Roflumilast [Daliresp 500 Mcg Tablet] 500 MCG) PO SCH (10:00)
[2017-07-28] MEDS: ROFLUMILAST 500 MCG TABLET PO SCH (10:00)
[2017-07-28] MEDS ORDERED: BISOPROLOL FUMARATE PO SCH (10:00)
[2017-07-28] MEDS: BUDESONIDE/FORMOTEROL 160-4.5 MCG 60 PUFF/6 GM MDI IH SCH ×2 (10:01→22:39)
[2017-07-28] MEDS: CEFEPIME HCL 1 GM in DEXTROSE 5%-WATER 50 ML IV SCH ×2 (10:01→22:35)
[2017-07-28] MEDS: FLUTICASONE NASAL SPRAY 50 MCG/SPRY 120 SPRAY/16 GM NASL SCH ×2 (10:01→17:49)
[2017-07-28] MEDS: ACETAMINOPHEN 325 MG TABLET PO PRN ×2 (11:54→17:50)
[2017-07-28 14:38] LABS: CREATININE RESULT 0.68 mg/dL (0.52-1.25)
--- NOTE | 2017-07-28 14:38 | PDOC PROGRESS REPORT ---
Subjective Progress Note for:: 07/28/17 Subjective:: Patient reports she is breathing better today. She reported she was having yellow purulent sputum prior to admission. Patient denies abdominal pain, nausea, vomiting, fevers, chills, diarrhea, constipation, headache, new onset weakness. Patient reported she was having chest pain right-sided prior to admission, but is currently chest pain-free She reports that she completed her course of prednisone on Thursday Physical Exam Vital Signs: Temp Pulse Resp BP Pulse Ox 98.1 F 86 29 H 105/73 95 07/28/17 04:22 07/28/17 07:00 07/28/17 04:24 07/28/17 04:22 07/28/17 04:24 Intake & Output 07/27/17 07/28/17 07/29/17 06:59 06:59 06:59 Intake Total 350 2036 Output Total 3050 Balance 350 -1014 Weight 61 kg 62 kg Exam: General: Cushingoid, Awake alert and oriented x3, flushed, mild respiratory distress HEENT: AT/NC, PERRL, EOMI, oropharynx is moist, pink, no scleral icterus, no conjunctival injection Neck: No JVD, trachea midline Chest: Prolonged expiratory phase, poor air excursion, otherwise clear to auscultation bilaterally CV: Regular rate and rhythm, normal S1 and S2, no murmur, rub, or gallop Abdomen: Soft, nontender to palpation, nondistended, active bowel sounds; no rebound, rigidity, or guarding Extremities: No cyanosis, +clubbing, trace edema Neuro: Cranial nerves II through XII are grossly intact without focal deficits; awake alert and oriented x3 Psych: Normal mood and affect Results Laboratory Results: 07/28/17 06:05 07/28/17 06:05 07/27/17 07/28/17 07/28/17 06:45 06:05 06:05 WBC 22.4 H 13.8 H RBC 3.58 L 3.40 L Hgb 10.9 L 10.3 L Hct 32.3 L 30.4 L MCV 90 90 MCH 30.6 30.4 MCHC 33.9 33.9 RDW 14.4 H 14.2 H Plt Count 107 L 105 L Seg Neutrophils % Not Reportable Lymphocytes % Not Reportable Monocytes % Not Reportable Eosinophils % Not Reportable Basophils % Not Reportable Absolute Neutrophils Not Reportable Absolute Lymphocytes Not Reportable Absolute Monocytes Not Reportable Absolute Eosinophils Not Reportable Absolute Basophils Not Reportable Sodium 139.9 Potassium 4.3 Chloride 99 Carbon Dioxide 31 H Anion Gap 10 BUN 19 Creatinine 0.58 Est GFR ( Amer) > 60 Est GFR (Non-Af Amer) > 60 Glucose 158 H Calcium 9.2 Magnesium 2.0 07/26/17 07/27/17 23:59 06:45 Troponin I < 0.012 < 0.012 Impressions: Chest X-Ray 07/26/17 19:59 IMPRESSION: COPD. NO ACUTE RADIOGRAPHIC FINDING IN THE CHEST. Assessment & Plan - Diagnosis (1) COPD exacerbation Is this a current diagnosis for this admission?: Yes Plan: Decrease Solu-Medrol to 125 mg IV every 8. Continue BiPAP at night and as needed. At this time, I feel the patient is likely becoming steroid dependent and will likely need to be on low-dose chronic prednisone at home. Concern for underlying gram-negative organisms, particularly Pseudomonas, continue cefepime. Continue scheduled nebulized treatments. Patient continues to require admission for IV corticosteroids and nebulized treatments. (2) Right-sided chest pain Is this a current diagnosis for this admission?: Yes Plan: Cardiac enzymes negative, likely secondary to pleuritic pain (3) Oxygen dependent Is this a current diagnosis for this admission?: Yes (4) Acute and chronic respiratory failure with hypercapnia Is this a current diagnosis for this admission?: Yes (5) [id number] deficiency Is this a current diagnosis for this admission?: Yes (6) Anemia Qualifiers: Anemia type: unspecified type Qualified Code(s): D64.9 - Anemia, unspecified Is this a current diagnosis for this admission?: Yes (7) Diastolic CHF Qualifiers: Congestive heart failure chronicity: chronic Qualified Code(s): I50.32 - Chronic diastolic (congestive) heart failure Is this a current diagnosis for this admission?: Yes Plan: We will resume patient's Lasix to deal with eventual accumulation of fluid from steroids. (8) Pulmonary hypertension Is this a current diagnosis for this admission?: Yes (9) DNI (do not intubate) Is this a current diagnosis for this admission?: Yes - Time Time Spent with patient: 25-34 minutes Medications reviewed and adjusted accordingly: Yes Anticipated discharge: Home Within: Other - Upon improvement of symptomatology
[2017-07-28] MEDS ORDERED: FUROSEMIDE 20 MG TABLET PO ONE (15:00)
[2017-07-28] MEDS: LEVOFLOXACIN 750 MG TABLET PO SCH (22:34)
[2017-07-28] MEDS: CETIRIZINE 5 MG TABLET PO SCH (22:35)
[2017-07-28] MEDS: ROPINIROLE HCL 1 MG TABLET PO SCH (22:35)
[2017-07-29] MEDS: ALBUTEROL SULFATE 0.083% NEB 2.5 MG/3 ML AMPUL NEB PRN (04:25)
[2017-07-29] MEDS: LANSOPRAZOLE 30 MG TAB.RAP.DR PO SCH ×2 (06:56→16:25)
[2017-07-29] MEDS: METHYLPREDNISOLONE INJ 125 MG/2 ML SDV IV SCH (06:56)
[2017-07-29] MEDS: IPRATROPIUM/ALBUTEROL 0.5-2.5 MG/3 ML AMPUL NEB SCH ×3 (07:52→20:15)
[2017-07-29 09:03] LABS: HEMATOCRIT 33.5 % (36.0-47.0); HEMOGLOBIN 11.3 g/dL (12.0-15.5); HGB HCT DIFFERENCE 0.4; MEAN CORPUSCULAR HEMOGLOBIN 30.9 pg (27.0-33.4); MEAN CORPUSCULAR HGB CONC 33.8 g/dL (32.0-36.0); MEAN CORPUSCULAR VOLUME 91 fl (80-97); RED BLOOD COUNT 3.66 10^6/uL (3.72-5.28); RED CELL DISTRIBUTION WIDTH 14.6 % (11.5-14.0); WHITE BLOOD COUNT 11.1 10^3/uL (4.0-10.5)
--- NOTE | 2017-07-29 09:45 | PDOC PROGRESS REPORT ---
Subjective Progress Note for:: 07/29/17 Subjective:: The patient is resting in her bed. She states her breathing and chest pain is somewhat improved but she is nowhere close to her baseline. We discussed making a change in the hospital from IV Solu-Medrol to prednisone to make sure she stays stable. She will likely need a very long prednisone taper at the time of discharge. She states that she has had no fever chills overnight. She still has a cough with some right-sided chest pain but greatly improved since the time of admission. She still has some episodes of bronchospasm. She is not bringing up much in the way of sputum. She has had no nausea, vomiting or diarrhea. No abdominal pain. No dysuria, frequency or hematuria. Physical Exam Vital Signs: Temp Pulse Resp BP Pulse Ox 98.2 F 98 23 H 110/55 L 100 07/29/17 08:19 07/29/17 08:19 07/29/17 08:19 07/29/17 08:19 07/29/17 08:19 Intake & Output 07/28/17 07/29/17 07/30/17 06:59 06:59 06:59 Intake Total 2036 1731 Output Total 3050 4450 Balance -1014 -1809 Weight 62 kg 60.8 kg General appearance: PRESENT: no acute distress, well-developed, well-nourished Head exam: PRESENT: atraumatic, normocephalic Eye exam: PRESENT: conjunctiva pink, EOMI, PERRLA. ABSENT: scleral icterus Mouth exam: PRESENT: moist, tongue midline Respiratory exam: PRESENT: chest wall tenderness, decreased breath sounds, other - The patient has some scattered rhonchi. She is significantly diminished throughout all lung malik. She really is not wheezing Cardiovascular exam: PRESENT: RRR, +S1, +S2. ABSENT: gallop, rubs, systolic murmur Pulses: PRESENT: normal dorsalis pedis pul GI/Abdominal exam: PRESENT: normal bowel sounds, soft. ABSENT: distended, guarding, mass, organolmegaly, rebound, tenderness Rectal exam: PRESENT: deferred Extremities exam: PRESENT: full ROM. ABSENT: calf tenderness, clubbing, pedal edema Neurological exam: PRESENT: alert, awake, oriented to person, oriented to place , oriented to time, oriented to situation, CN II-XII grossly intact. ABSENT: motor sensory deficit Psychiatric exam: PRESENT: appropriate affect, normal mood. ABSENT: homicidal ideation, suicidal ideation Skin exam: PRESENT: dry, intact, warm. ABSENT: cyanosis, rash Results Laboratory Results: 07/29/17 08:38 07/28/17 13:35 07/28/17 07/29/17 13:35 08:38 WBC 11.1 H RBC 3.66 L Hgb 11.3 L Hct 33.5 L MCV 91 MCH 30.9 MCHC 33.8 RDW 14.6 H Plt Count 132 L Creatinine 0.68 Est GFR ( Amer) > 60 Est GFR (Non-Af Amer) > 60 07/26/17 07/27/17 23:59 06:45 Troponin I < 0.012 < 0.012 Impressions: Chest X-Ray 07/26/17 19:59 IMPRESSION: COPD. NO ACUTE RADIOGRAPHIC FINDING IN THE CHEST. Assessment & Plan - Diagnosis (1) Acute respiratory failure with hypoxia and hypercapnia Plan: Improved. She had significant hypercapnia at the time of admission. She is on 4 L of baseline oxygen at home. That is what she is requiring here in the hospital. Her acute respiratory failure has resolved. This is secondary to her COPD exacerbation. (2) COPD exacerbation Is this a current diagnosis for this admission?: Yes Plan: I am going to stop her IV Solu-Medrol and place her on prednisone 60 mg daily. She likely will need a prolonged taper at discharge. Her COPD exacerbation is improving. She will continue IV cefepime and Levaquin. She is receiving double coverage for possible Pseudomonas infection. Patient likely has bronchitis involved with this as well. While she is in the hospital we will continue both of these antibiotics. We will send her out on p.o. Levaquin. (3) Pleuritic chest pain Plan: At the time of admission the patient had pleuritic chest pain on the right that radiated into her right shoulder. This is secondary to her respiratory issues and COPD exacerbation and is improving. (4) Oxygen dependent Is this a current diagnosis for this admission?: Yes Plan: Secondary to worsening COPD. She is at her baseline 4 L of oxygen. (6) Pulmonary hypertension Is this a current diagnosis for this admission?: Yes Plan: She is on trilogy at home. (7) Diastolic CHF Qualifiers: Congestive heart failure chronicity: chronic Qualified Code(s): I50.32 - Chronic diastolic (congestive) heart failure Is this a current diagnosis for this admission?: Yes Plan: Currently euvolemic. (8) Thrombocytopenia Is this a current diagnosis for this admission?: Yes Plan: Improving. Likely secondary to bronchitis. (9) Anemia Qualifiers: Anemia type: unspecified type Qualified Code(s): D64.9 - Anemia, unspecified Is this a current diagnosis for this admission?: Yes Plan: This is an anemia of chronic disease and appears to be stable. (10) DNI (do not intubate) Is this a current diagnosis for this admission?: Yes
[2017-07-29] MEDS: MONTELUKAST SODIUM 10 MG TABLET PO SCH (10:27)
[2017-07-29] MEDS: FLUTICASONE NASAL SPRAY 50 MCG/SPRY 120 SPRAY/16 GM NASL SCH ×2 (10:27→18:07)
[2017-07-29] MEDS: FAMOTIDINE 20 MG TABLET PO SCH ×2 (10:27→21:50)
[2017-07-29] MEDS: FUROSEMIDE 20 MG TABLET PO SCH (10:28)
[2017-07-29] MEDS: ATENOLOL 50 MG TABLET PO SCH (10:28)
[2017-07-29] MEDS: ASPIRIN 81 MG TABLET, ENT COATED PO SCH (10:28)
[2017-07-29] MEDS: BUDESONIDE/FORMOTEROL 160-4.5 MCG 60 PUFF/6 GM MDI IH SCH ×2 (10:29→21:53)
[2017-07-29] MEDS: ROFLUMILAST 500 MCG TABLET PO SCH (10:29)
[2017-07-29] MEDS: PREDNISONE 20 MG TABLET PO SCH (10:31)
[2017-07-29] MEDS: CEFEPIME HCL 1 GM in DEXTROSE 5%-WATER 50 ML IV SCH ×2 (10:33→21:50)
[2017-07-29] MEDS: ACETAMINOPHEN 325 MG TABLET PO PRN ×3 (12:55→22:15)
[2017-07-29] MEDS: CETIRIZINE 5 MG TABLET PO SCH (21:49)
[2017-07-29] MEDS: ROPINIROLE HCL 1 MG TABLET PO SCH (21:49)
[2017-07-29] MEDS: LEVOFLOXACIN 750 MG TABLET PO SCH (21:50)
[2017-07-30] MEDS: LANSOPRAZOLE 30 MG TAB.RAP.DR PO SCH ×2 (05:26→16:21)
[2017-07-30 06:10] LABS: ANION GAP 6 (5-19); BLOOD UREA NITROGEN 23 mg/dL (7-20); CALCIUM 8.9 mg/dL (8.4-10.2); CARBON DIOXIDE 34 mmol/L (22-30); CHLORIDE 100 mmol/L (98-107); CREATININE RESULT 0.66 mg/dL (0.52-1.25); GLUCOSE 99 mg/dL (75-110); MAGNESIUM 2.3 mg/dL (1.6-2.3); POTASSIUM 4.3 mmol/L (3.6-5.0); SODIUM 139.7 mmol/L (137-145)
[2017-07-30] MEDS: IPRATROPIUM/ALBUTEROL 0.5-2.5 MG/3 ML AMPUL NEB SCH ×3 (07:58→19:59)
[2017-07-30] MEDS ORDERED: BUTALB/ACETAMINOPHEN/CAFFEINE 1 TAB EACH PO PRN (08:36)
--- NOTE | 2017-07-30 08:46 | PDOC PROGRESS REPORT ---
Subjective Progress Note for:: 07/30/17 Subjective:: The patient states she had a difficult day yesterday. She states that she developed a rather severe headache that really did not respond well to Tylenol. She also had some increased breathing and had to go back on BiPAP for a short period of time. This morning she states she continues to have a really bad headache. She has had no fever or shaking chills. No chest pain. Her cough is at baseline. She really is not bringing up any sputum. She just feels as if she is not moving air well. No nausea, vomiting or diarrhea. She really does not have a good appetite. No dysuria, frequency or hematuria. Physical Exam Vital Signs: Temp Pulse Resp BP Pulse Ox 98.1 F 76 27 H 108/64 98 07/30/17 03:17 07/30/17 03:17 07/30/17 03:17 07/30/17 03:17 07/30/17 03:17 Intake & Output 07/29/17 07/30/17 07/31/17 06:59 06:59 06:59 Intake Total 1731 1537 Output Total 4450 2350 Balance -2719 -813 Weight 60.8 kg 63.2 kg General appearance: PRESENT: thin, other - She is in no acute distress but looks as if she does not feel well. Eye exam: PRESENT: conjunctiva pink, EOMI, PERRLA. ABSENT: scleral icterus Mouth exam: PRESENT: moist, tongue midline Respiratory exam: PRESENT: clear to auscultation lashell, decreased breath sounds, other - She is not wheezing but she just is not moving air well. Cardiovascular exam: PRESENT: RRR. ABSENT: diastolic murmur, rubs, systolic murmur GI/Abdominal exam: PRESENT: normal bowel sounds, soft. ABSENT: distended, guarding, mass, organolmegaly, rebound, tenderness Extremities exam: PRESENT: full ROM. ABSENT: calf tenderness, clubbing, pedal edema Musculoskeletal exam: PRESENT: ambulatory Neurological exam: PRESENT: alert, awake, oriented to person, oriented to place , oriented to time, oriented to situation, CN II-XII grossly intact. ABSENT: motor sensory deficit Psychiatric exam: PRESENT: anxious, appropriate affect, normal mood. ABSENT: agitated, depressed Skin exam: PRESENT: dry, intact, warm. ABSENT: cyanosis, rash Results Laboratory Results: 07/29/17 08:38 07/30/17 04:14 07/29/17 07/30/17 08:38 04:14 WBC 11.1 H RBC 3.66 L Hgb 11.3 L Hct 33.5 L MCV 91 MCH 30.9 MCHC 33.8 RDW 14.6 H Plt Count 132 L Sodium 139.7 Potassium 4.3 Chloride 100 Carbon Dioxide 34 H Anion Gap 6 BUN 23 H Creatinine 0.66 Est GFR ( Amer) > 60 Est GFR (Non-Af Amer) > 60 Glucose 99 Calcium 8.9 Magnesium 2.3 07/26/17 07/27/17 23:59 06:45 Troponin I < 0.012 < 0.012 Impressions: Chest X-Ray 07/26/17 19:59 IMPRESSION: COPD. NO ACUTE RADIOGRAPHIC FINDING IN THE CHEST. Assessment & Plan - Diagnosis (1) Acute respiratory failure with hypoxia and hypercapnia Plan: Yesterday she had to be placed on BiPAP for a brief period of time. She is at her baseline 4 L of oxygen. The patient is mentating and doing fairly well. We will continue aggressive breathing treatments and bronchodilators. She will continue therapy as outlined below. In light of the fact that the patient had to be placed back on BiPAP and is still feeling quite poorly am going to repeat a chest x-ray today. (2) COPD exacerbation Is this a current diagnosis for this admission?: Yes Plan: The patient was transitioned to oral steroids yesterday. She will continue 60 mg of p.o. prednisone daily. She will continue IV Levaquin as well as cefepime to cover for Pseudomonas. She is slowly improving. This is day #3 of IV antibiotic therapy. The patient does not feel anywhere close to her baseline. (3) Pleuritic chest pain Plan: At the time of admission the patient had pleuritic chest pain on the right that radiated into her right shoulder. This is secondary to her respiratory issues and COPD exacerbation and is improving. (4) Oxygen dependent Is this a current diagnosis for this admission?: Yes Plan: Secondary to worsening COPD. She is at her baseline 4 L of oxygen. (5) Soqhg-5-nihmjfmslns deficiency Plan: She follows with Dr. Downey in [place], [place]. (6) Pulmonary hypertension Is this a current diagnosis for this admission?: Yes Plan: She is on trilogy at home. (7) Diastolic CHF Qualifiers: Congestive heart failure chronicity: chronic Qualified Code(s): I50.32 - Chronic diastolic (congestive) heart failure Is this a current diagnosis for this admission?: Yes Plan: She appears to be euvolemic. I will add a BNP onto this morning's blood work and obtain a repeat chest x-ray today. (8) Thrombocytopenia Is this a current diagnosis for this admission?: Yes Plan: Improving. Likely related to underlying infection. (9) Anemia Qualifiers: Anemia type: unspecified type Qualified Code(s): D64.9 - Anemia, unspecified Is this a current diagnosis for this admission?: Yes Plan: This is an anemia of chronic disease and appears to be stable. (10) DNI (do not intubate) Is this a current diagnosis for this admission?: Yes - Time Time Spent with patient: 25-34 minutes - Inpatient Certification Medical Necessity: Need Close Monitoring Due to Risk of Patient Decompensation - Inpatient hospitalization remains necessary, Need for IV Antibiotics, Other - Inpatient hospitalization remains necessary. The patient has severe lung disease. She is not feeling better at this point. She is requiring parenteral therapies. She is at high risk of decompensation and readmission if sent home too soon. Timing of disposition will be determined by her clinical course.
[2017-07-30] MEDS: ATENOLOL 50 MG TABLET PO SCH (09:33)
[2017-07-30] MEDS: MONTELUKAST SODIUM 10 MG TABLET PO SCH (09:34)
[2017-07-30] MEDS: ROFLUMILAST 500 MCG TABLET PO SCH (09:34)
[2017-07-30] MEDS: ASPIRIN 81 MG TABLET, ENT COATED PO SCH (09:34)
[2017-07-30] MEDS: FUROSEMIDE 20 MG TABLET PO SCH (09:35)
[2017-07-30] MEDS: FAMOTIDINE 20 MG TABLET PO SCH ×2 (09:35→21:44)
[2017-07-30] MEDS: FLUTICASONE NASAL SPRAY 50 MCG/SPRY 120 SPRAY/16 GM NASL SCH ×2 (09:36→18:24)
[2017-07-30] MEDS: BUDESONIDE/FORMOTEROL 160-4.5 MCG 60 PUFF/6 GM MDI IH SCH ×2 (09:36→21:44)
[2017-07-30] MEDS: CEFEPIME HCL 1 GM in DEXTROSE 5%-WATER 50 ML IV SCH (09:37)
[2017-07-30] MEDS: PREDNISONE 20 MG TABLET PO SCH (10:42)
[2017-07-30] MEDS ORDERED: ALBUTEROL SULFATE 0.083% NEB 2.5 MG/3 ML AMPUL NEB PRN (14:30)
[2017-07-30] MEDS: BUTALB/ACETAMINOPHEN/CAFFEINE 1 TAB EACH PO PRN ×2 (16:18→21:43)
[2017-07-30] MEDS: ACETAMINOPHEN 325 MG TABLET PO PRN (18:24)
[2017-07-30] MEDS: ROPINIROLE HCL 1 MG TABLET PO SCH (21:43)
[2017-07-30] MEDS: LEVOFLOXACIN 750 MG TABLET PO SCH (21:44)
[2017-07-30] MEDS: CETIRIZINE 5 MG TABLET PO SCH (21:44)
[2017-07-30] MEDS: CEFEPIME 1 GM/D5W RTU 1 GM/50 ML RTUPB IV SCH (21:45)
[2017-07-31 04:49] LABS: ABSOLUTE LYMPHOCYTES (AUTO) 0.6 10^3/uL (0.5-4.7); ABSOLUTE MONOCYTES (AUTO) 0.2 10^3/uL (0.1-1.4); ABSOLUTE NEUT (AUTO) 3.6 10^3/uL (1.7-8.2); HEMATOCRIT 29.1 % (36.0-47.0); HEMOGLOBIN 10.3 g/dL (12.0-15.5); HGB HCT DIFFERENCE 1.8; LYMPHOCYTES % (AUTO) 12.6 % (13-45); MEAN CORPUSCULAR HEMOGLOBIN 31.4 pg (27.0-33.4); MEAN CORPUSCULAR HGB CONC 35.5 g/dL (32.0-36.0); MEAN CORPUSCULAR VOLUME 88 fl (80-97); RED CELL DISTRIBUTION WIDTH 14.3 % (11.5-14.0); SEGMENTED NEUTROPHILS % (AUTO) 82.4 % (42-78); WHITE BLOOD COUNT 4.4 10^3/uL (4.0-10.5)
[2017-07-31 05:14] LABS: ANION GAP 8 (5-19); BLOOD UREA NITROGEN 21 mg/dL (7-20); CALCIUM 8.3 mg/dL (8.4-10.2); CARBON DIOXIDE 34 mmol/L (22-30); CHLORIDE 99 mmol/L (98-107); CREATININE RESULT 0.63 mg/dL (0.52-1.25); GLUCOSE 93 mg/dL (75-110); POTASSIUM 4.2 mmol/L (3.6-5.0); SODIUM 140.6 mmol/L (137-145)
[2017-07-31] MEDS: LANSOPRAZOLE 30 MG TAB.RAP.DR PO SCH ×2 (06:06→17:19)
[2017-07-31] MEDS: IPRATROPIUM/ALBUTEROL 0.5-2.5 MG/3 ML AMPUL NEB SCH ×3 (07:54→19:59)
[2017-07-31] MEDS ORDERED: CYCLOBENZAPRINE HCL 10 MG TABLET PO PRN (09:41)
[2017-07-31] MEDS ORDERED: KETOROLAC TROMETHAMINE INJ/PF 30 MG/1 ML SDV IV ONE (09:42)
--- NOTE | 2017-07-31 09:52 | PDOC PROGRESS REPORT ---
Subjective Progress Note for:: 07/31/17 Subjective:: The patient continues to complain of a very bad headache. She states it is in the back of her neck and in the occipital area. She states she also has headache behind her eyes. She states her eyes feel dry. She states her breathing is off and on. She has had to be off and on the BiPAP machine today. She denies fever chills. No chest pain. She really does not have much in the way of cough. No nausea, vomiting or diarrhea. No dysuria, frequency or hematuria. Physical Exam Vital Signs: Temp Pulse Resp BP Pulse Ox 97.8 F 77 22 H 107/55 L 100 07/30/17 15:06 07/31/17 07:54 07/31/17 07:54 07/30/17 15:06 07/31/17 07:54 Intake & Output 07/30/17 07/31/17 08/01/17 06:59 06:59 06:59 Intake Total 1537 1427 Output Total 2350 2200 Balance -813 -773 Weight 63.2 kg 63 kg General appearance: PRESENT: no acute distress, thin, well-developed, other Head exam: PRESENT: atraumatic, normocephalic Eye exam: PRESENT: conjunctiva pink, EOMI, PERRLA. ABSENT: scleral icterus Mouth exam: PRESENT: moist, tongue midline Respiratory exam: PRESENT: clear to auscultation lashell, decreased breath sounds, prolonged expiratory phas Cardiovascular exam: PRESENT: bradycardia GI/Abdominal exam: PRESENT: normal bowel sounds, soft. ABSENT: distended, guarding, mass, organolmegaly, rebound, tenderness Extremities exam: PRESENT: full ROM. ABSENT: calf tenderness, clubbing, pedal edema Neurological exam: PRESENT: alert, awake, oriented to person, oriented to place , oriented to time, oriented to situation, CN II-XII grossly intact. ABSENT: motor sensory deficit Psychiatric exam: PRESENT: appropriate affect, normal mood. ABSENT: homicidal ideation, suicidal ideation Skin exam: PRESENT: dry, intact, warm. ABSENT: cyanosis, rash Results Laboratory Results: 07/31/17 04:03 07/31/17 04:03 07/31/17 07/31/17 04:03 04:03 WBC 4.4 RBC 3.30 L Hgb 10.3 L Hct 29.1 L MCV 88 MCH 31.4 MCHC 35.5 RDW 14.3 H Plt Count 115 L Seg Neutrophils % 82.4 H Lymphocytes % 12.6 L Monocytes % 5.0 Eosinophils % 0.0 Basophils % 0.0 Absolute Neutrophils 3.6 Absolute Lymphocytes 0.6 Absolute Monocytes 0.2 Absolute Eosinophils 0.0 Absolute Basophils 0.0 Sodium 140.6 Potassium 4.2 Chloride 99 Carbon Dioxide 34 H Anion Gap 8 BUN 21 H Creatinine 0.63 Est GFR ( Amer) > 60 Est GFR (Non-Af Amer) > 60 Glucose 93 Calcium 8.3 L 07/26/17 07/27/17 23:59 06:45 Troponin I < 0.012 < 0.012 Impressions: Chest X-Ray 07/26/17 19:59 IMPRESSION: COPD. NO ACUTE RADIOGRAPHIC FINDING IN THE CHEST. Assessment & Plan - Diagnosis (1) Acute respiratory failure with hypoxia and hypercapnia Plan: She is improving. Continue oxygen support as needed. Her oxygen is at her baseline that she uses at home. She continues to need BiPAP off and on. She follows with as an outpatient. She will need an appointment to follow-up with him when she gets out of the hospital. (3) COPD exacerbation Is this a current diagnosis for this admission?: Yes Plan: The patient has been successfully transitioned to oral steroids 2 days ago. She continues to need BiPAP intermittently but she is not wheezing. She continues IV cefepime and Levaquin in the hospital. She is somewhat improved from a breathing standpoint. (4) Headache Plan: She continues to have a headache. She has Fioricet available as needed. I believe this may be coming from her neck. I am going to give her a muscle relaxer this morning and a dose of IV Toradol. Hopefully this will help. It is possible that her headache could be caused by hypercapnia. If all of this does not improve would consider repeating a blood gas. (5) Eyxag-[id number] deficiency Plan: She will need pulmonology follow-up as an outpatient (6) Oxygen dependent Is this a current diagnosis for this admission?: Yes Plan: She is back to her baseline oxygen requirements at this point. (7) Pulmonary hypertension Is this a current diagnosis for this admission?: Yes Plan: She is on trilogy as an outpatient. (8) Diastolic CHF Qualifiers: Congestive heart failure chronicity: chronic Qualified Code(s): I50.32 - Chronic diastolic (congestive) heart failure Is this a current diagnosis for this admission?: Yes Plan: Currently she appears to be euvolemic. No evidence of exacerbation (9) Thrombocytopenia Is this a current diagnosis for this admission?: Yes Plan: Improving. Likely related to underlying infection. (10) Anemia Qualifiers: Anemia type: unspecified type Qualified Code(s): D64.9 - Anemia, unspecified Is this a current diagnosis for this admission?: Yes Plan: This is an anemia of chronic disease and appears to be stable. (11) DNI (do not intubate) Is this a current diagnosis for this admission?: Yes - Time Time Spent with patient: 25-34 minutes - Inpatient Certification Medical Necessity: Other - Inpatient hospitalization remains necessary. The patient has severe underlying lung disease. She is at high risk of readmission if being sent out too soon. She is continuing to need to wear BiPAP off and on during the day and has severe headache which could possibly be due to her hypercapnia. We will continue to monitor her here in the hospital and hopefully she can be discharged home in the next 24-48 hours.
[2017-07-31] MEDS: FUROSEMIDE 20 MG TABLET PO SCH (10:31)
[2017-07-31] MEDS: ROFLUMILAST 500 MCG TABLET PO SCH (10:31)
[2017-07-31] MEDS: MONTELUKAST SODIUM 10 MG TABLET PO SCH (10:32)
[2017-07-31] MEDS: FAMOTIDINE 20 MG TABLET PO SCH ×2 (10:32→21:39)
[2017-07-31] MEDS: ASPIRIN 81 MG TABLET, ENT COATED PO SCH (10:32)
[2017-07-31] MEDS: CEFEPIME 1 GM/D5W RTU 1 GM/50 ML RTUPB IV SCH ×2 (10:33→21:40)
[2017-07-31] MEDS: FLUTICASONE NASAL SPRAY 50 MCG/SPRY 120 SPRAY/16 GM NASL SCH ×2 (10:33→17:19)
[2017-07-31] MEDS: BUDESONIDE/FORMOTEROL 160-4.5 MCG 60 PUFF/6 GM MDI IH SCH ×2 (10:34→21:41)
[2017-07-31] MEDS: ATENOLOL 50 MG TABLET PO SCH (10:34)
[2017-07-31] MEDS: PREDNISONE 20 MG TABLET PO SCH (10:36)
[2017-07-31] MEDS: BUTALB/ACETAMINOPHEN/CAFFEINE 1 TAB EACH PO PRN (15:25)
[2017-07-31] MEDS: ROPINIROLE HCL 1 MG TABLET PO SCH (21:39)
[2017-07-31] MEDS: CETIRIZINE 5 MG TABLET PO SCH (21:40)
[2017-07-31] MEDS: LEVOFLOXACIN 750 MG TABLET PO SCH (21:40)
[2017-07-31] MEDS: ACETAMINOPHEN 325 MG TABLET PO PRN (22:38)
[2017-08-01] MEDS: ACETAMINOPHEN 325 MG TABLET PO PRN (04:35)
[2017-08-01] MEDS: LANSOPRAZOLE 30 MG TAB.RAP.DR PO SCH (05:01)
[2017-08-01] MEDS: BUTALB/ACETAMINOPHEN/CAFFEINE 1 TAB EACH PO PRN (07:54)
[2017-08-01] MEDS: IPRATROPIUM/ALBUTEROL 0.5-2.5 MG/3 ML AMPUL NEB SCH (08:08)
[2017-08-01 08:22] VITALS: BP 121/58
--- NOTE | 2017-08-01 08:53 | DISCHARGE SUMMARY E ---
Discharge Summary NAME: AUDIE KIMBLE : 1960 AGE: 56Y ADMITTED: 07/26/2017 DISCHARGED: 08/01/2017 ADMISSION DIAGNOSES: 1. COPD exacerbation. 2. Right-sided chest pain. 3. Alpha 1 antitrypsin deficiency. 4. Anemia. 5. Diastolic heart failure. DISCHARGE DIAGNOSES: 1. Acute hypoxic hypercarbic respiratory failure secondary to COPD exacerbation. 2. COPD exacerbation. 3. Alpha 1 antitrypsin deficiency. 4. Pulmonary hypertension. 5. Diastolic congestive heart failure, chronic. 6. Thrombocytopenia. 7. Anemia. IMAGING: Chest x-ray: No infiltrate. HISTORY OF PRESENT ILLNESS: The patient is a pleasant 56-year-old female who had a past medical history of COPD on home oxygen, COPD secondary to antitrypsin deficiency and smoking. She is on 4 L at home. The patient was admitted with acute hypoxic hypercarbic respiratory failure secondary to COPD exacerbation and she was treated with steroid, prednisone, IV antibiotics, and she was on cefepime as well as Levaquin p.o. The patient is doing well. Her symptoms improved. She had a chest x-ray, which did not show any infiltrate. The patient is stable to be discharged home on oral antibiotics on Levaquin. It was noted that the patient was taking bisoprolol and atenolol. I discontinued bisoprolol. I just kept her on atenolol. PHYSICAL EXAMINATION UPON DISCHARGE: GENERAL: Patient lying in bed comfortable, not in distress. VITAL SIGNS: Blood pressure 121/58, heart rate 79, respiratory rate 24, saturation 97% on room air. HEENT: Head normocephalic, atraumatic. Pupils round, reactive to light and accommodation bilaterally. Extraocular movements intact. Ears: Tympanic membranes intact bilaterally. No discharge from the ears. No discharge from the nose. NECK: Supple. No increased JVD. No thyromegaly. No lymphadenopathy. CARDIOVASCULAR: Normal S1, S2. Regular rate and rhythm. No murmur. RESPIRATORY: Decreased air entry bilaterally. ABDOMEN: Soft, nontender. MUSCULOSKELETAL: No edema. NEUROLOGIC: Awake, alert. SKIN: No rash. LABORATORY: White blood count is 4.4, hemoglobin is 10, creatinine 0.6. DISCHARGE INSTRUCTIONS: Discharge patient home. MEDICATIONS: 1. Levaquin 750 mg p.o. daily. 2. Atenolol 25 mg p.o. daily. 3. Aspirin 81 mg daily. 4. Symbicort twice a day. 5. Fioricet 4 times a day. 6. Vitamin D2 50,000 units weekly. 7. Flonase spray. 8. Lasix 20 mg daily. 9. Zyrtec 500 g daily at bedtime. 10. Singulair 10 mg daily. 11. Prednisone 20 mg daily. 12. Daliresp 500 mcg tablets daily. 13. Requip 0.5 mg, 1 mg daily. 14. Albuterol inhaler. 15. Lisinopril 2.5 mg daily. DISCHARGE INSTRUCTIONS: Follow up with primary care physician in 1 week. Come to the emergency room for any shortness of breath. ACTIVITY: As tolerated. DIET: Low-salt diet. DICTATING PHYSICIAN: AMELIA LANCASTER M.D. [id number] PHY#: [id number] ID: [id number] JOB#: [id number] ACCT: [id number] cc:GAEL MUNGUIA M.D. AMELIA LANCASTER M.D. >
[2017-08-01] MEDS ORDERED: BUTALB/ACETAMINOPHEN/CAFFEINE 1 TAB EACH PO PRN ×2 (09:14→09:16)
[2017-08-01] MEDS: FLUTICASONE NASAL SPRAY 50 MCG/SPRY 120 SPRAY/16 GM NASL SCH (09:35)
[2017-08-01] MEDS: BUDESONIDE/FORMOTEROL 160-4.5 MCG 60 PUFF/6 GM MDI IH SCH (09:35)
[2017-08-01] MEDS: ASPIRIN 81 MG TABLET, ENT COATED PO SCH (09:35)
[2017-08-01] MEDS: ROFLUMILAST 500 MCG TABLET PO SCH (09:35)
[2017-08-01] MEDS: ATENOLOL 50 MG TABLET PO SCH (09:35)
[2017-08-01] MEDS: FAMOTIDINE 20 MG TABLET PO SCH (09:36)
[2017-08-01] MEDS: MONTELUKAST SODIUM 10 MG TABLET PO SCH (09:36)
[2017-08-01] MEDS: FUROSEMIDE 20 MG TABLET PO SCH (09:37)
[2017-08-01] MEDS ORDERED: LEVOFLOXACIN 750 MG TABLET PO SCH (10:00)
[2017-08-02] MEDS ORDERED: ERGOCALCIFEROL (VITAMIN D2) 50000 UNIT (1.25 MG) CAPSULE PO SCH (10:00)
== END 2017-08-01 10:08 | disposition home or self-care (01) | DRG 291 ==
LOC: ER 19:21 → UNDOADMIN 23:17 → EH 23:17 → 3N 07-27 01:55
PROVIDERS: ADMIT Family Medicine; ATTEND Family Medicine
PROC: 5A09557 Assistance with Respiratory Ventilation, Greater than 96 Consecutive Hours, Continuous Positive Airway Pressure (ICD-10-PCS; principal; 2017-07-27)
DX: I11.0 Hypertensive heart disease with heart failure (principal); J96.22 Acute and chronic respiratory failure with hypercapnia; J96.21 Acute and chronic respiratory failure with hypoxia; I50.32 Chronic diastolic (congestive) heart failure; E88.01 Alpha-1-antitrypsin deficiency; G43.919 Migraine, unspecified, intractable, without status migrainosus; Z66 Do not resuscitate; D69.6 Thrombocytopenia, unspecified; I27.20 Pulmonary hypertension, unspecified; Z99.81 Dependence on supplemental oxygen; K21.9 Gastro-esophageal reflux disease without esophagitis; M19.90 Unspecified osteoarthritis, unspecified site; Z90.710 Acquired absence of both cervix and uterus; Z98.51 Tubal ligation status; Z82.49 Family history of ischemic heart disease and other diseases of the circulatory system; Z87.891 Personal history of nicotine dependence; Z84.89 Family history of other specified conditions; Z79.899 Other long term (current) drug therapy; Z88.2 Allergy status to sulfonamides
CPT/HCPCS: 36415; 71010; 80048; 80053; 80202; 81001; 82550; 82553; 82565; 82803; 82962; 83735; 84484; 85025; 85027; 85610; 87040; 87070; 87205; 93005; 93010; 94640; 94660; 94799; 96365; 96367; 96375; 99285; J0692; J1885; J1956; J2270; J2920; J2930; J3370; J3420; J3475; J3490; J7060; J7512; J7620

== ENCOUNTER 2017-10-31 14:48 | Inpatient (IN) | payer MEDICARE, MEDICAID ==
[2017-10-31] MEDS ORDERED: METHYLPREDNISOLONE INJ 125 MG/2 ML SDV IV ONE (15:25)
[2017-10-31 15:41] LABS: ABSOLUTE BASOPHILS # (AUTO) 0.1 10^3/uL (0.0-0.2); ABSOLUTE EOSINOPHILS # (AUTO) 0.2 10^3/uL (0.0-0.6); ABSOLUTE LYMPHOCYTES (AUTO) 1.7 10^3/uL (0.5-4.7); ABSOLUTE MONOCYTES (AUTO) 0.5 10^3/uL (0.1-1.4); ABSOLUTE NEUT (AUTO) 8.5 10^3/uL (1.7-8.2); BASOPHILS % (AUTO) 0.5 % (0-2); EOSINOPHILS % (AUTO) 1.8 % (0-6); HEMATOCRIT 38.6 % (36.0-47.0); LYMPHOCYTES % (AUTO) 15.3 % (13-45); MEAN CORPUSCULAR HEMOGLOBIN 31.1 pg (27.0-33.4); MEAN CORPUSCULAR HGB CONC 33.7 g/dL (32.0-36.0); MEAN CORPUSCULAR VOLUME 92 fl (80-97); MONOCYTES % (AUTO) 4.8 % (3-13); PLATELET COUNT 167 10^3/uL (150-450); RED BLOOD COUNT 4.19 10^6/uL (3.72-5.28); RED CELL DISTRIBUTION WIDTH 13.5 % (11.5-14.0); SEGMENTED NEUTROPHILS % (AUTO) 77.6 % (42-78); TOTAL CELLS COUNTED % (AUTO) 100 %
[2017-10-31 15:58] LABS: BLOOD UREA NITROGEN 12 mg/dL (7-20); CALCIUM 9.6 mg/dL (8.4-10.2); CHLORIDE 98 mmol/L (98-107); GLUCOSE 81 mg/dL (75-110); POTASSIUM 3.6 mmol/L (3.6-5.0); SODIUM 148.1 mmol/L (137-145)
[2017-10-31 16:10] LABS: NT PRO BNP 89 pg/mL (5-900)
[2017-10-31 16:13] LABS: ANION GAP 11 (5-19); CARBON DIOXIDE 39 mmol/L (22-30); TROPONIN I < 0.012 ng/mL
[2017-10-31] MEDS ORDERED: NORMAL SALINE 1000 ML 1,000 ML IV ONE (16:26)
--- NOTE | 2017-10-31 16:34 | ER Document Report ---
ED Respiratory Problem - General Chief Complaint: Breathing Difficulty Stated Complaint: DIFFICULTY BREATHING Time Seen by Provider: 10/31/17 15:22 Information source: Patient Notes: 57-year-old female with past medical history of COPD and alpha-1 antitrypsin deficiency who presents today with 2 days of runny nose, worsening cough, and shortness of breath. She states a mild left anterior shoulder discomfort. She denies any overt chest pain. Patient is on 4 L nasal cannulas at home at baseline but states some increased shortness of breath. She also believes she may have some slight bilateral lower extremity edema. She has just finished a course of steroids by her lead javascript developer Dr. Marroquin. TRAVEL OUTSIDE OF THE [place] IN LAST 30 DAYS: No - HPI Patient complains to provider of: COPD, Short of breath Onset: Other - See above Duration: Continuous Quality of pain: No pain Severity: Mild Pain Level: 2 Context: Hx COPD Short of Breath: Moderate Cough: Nonproductive Sputum amount: None At home treatment: Bronchodilators Associated symptoms: Other - See above Similar symptoms previously: Yes Recently seen / treated by doctor: Yes - Related Data Allergies/Adverse Reactions: doxepin [Doxepin] Allergy (Verified 07/04/17 11:47) Shortness of Breath, Swelling etodolac [Etodolac] Allergy (Verified 07/04/17 11:47) loratadine [Loratadine] Allergy (Verified 07/04/17 11:47) Shortness of Breath, Swelling meloxicam [Meloxicam] Allergy (Verified 07/04/17 11:47) Sulfa (Sulfonamide Antibiotics) Allergy (Verified 07/04/17 11:47) Shortness of Breath, Swelling Past Medical History - General Information source: Patient - Social History Smoking Status: Unknown if Ever Smoked Cigarette use (# per day): No Chew tobacco use (# tins/day): No Smoking Education Provided: No Frequency of alcohol use: None Family History: Hyperlipidemia, Hypertension - Past Medical History Cardiac Medical History: Reports: Hx Congestive Heart Failure - Diastolic, Hx Hypertension Denies: Hx Atrial Fibrillation, Hx DVT, Hx Heart Attack, Hx Hypercholesterolemia, Hx Pulmonary Embolism Pulmonary Medical History: Reports: Hx Asthma, Hx Bronchitis, Hx COPD - home O2 & BIPAP-dependent, Hx Pneumonia Neurological Medical History: Reports: Hx Migraine. Denies: Hx Seizures Endocrine Medical History: Denies: Hx Diabetes Mellitus Type 1, Hx Diabetes Mellitus Type 2, Hx Hyperthyroidism, Hx Hypothyroidism Renal/ Medical History: Denies: Hx Peritoneal Dialysis GI Medical History: Reports: Hx Gastroesophageal Reflux Disease. Denies: Hx Cirrhosis, Hx Hepatitis Musculoskeltal Medical History: Reports Hx Arthritis, Reports Hx Muscle Weakness Psychiatric Medical History: Denies: Hx Depression Traumatic Medical History: Reports: Hx Pneumothorax - x4 R lung, 2010 when the patient had a right lung bx required a chest tube Infectious Medical History: Denies: Hx Hepatitis Past Surgical History: Reports: Hx Gynecologic Surgery, Hx Hysterectomy, Hx Tonsillectomy, Hx Tubal Ligation - Immunizations Hx Diphtheria, Pertussis, Tetanus Vaccination: No Hx Pneumococcal Vaccination: 04/25/09 Review of Systems - Review of Systems Constitutional: denies: Fever EENT: Nose congestion. denies: Eye discharge, Nose discharge Cardiovascular: denies: Palpitations, Heart racing Respiratory: Cough, Short of breath Gastrointestinal: denies: Vomiting Genitourinary: denies: Dysuria Musculoskeletal: denies: Leg swelling Skin: Other - no hives. denies: Rash Neurological/Psychological: Other - no slurred speech -: Yes All other systems reviewed and negative Physical Exam - Vital signs Vitals: Temp Pulse Resp BP Pulse Ox 98 F 109 H 40 H 142/81 H 92 10/31/17 14:58 10/31/17 14:58 10/31/17 14:58 10/31/17 14:58 10/31/17 14:58 Notes: Reviewed vital signs and nursing note as charted by RN. CONSTITUTIONAL: Alert and oriented and responds appropriately to questions. Well -appearing; well-nourished HEAD: Normocephalic; atraumatic EYES: PERRL; Conjunctivae clear, sclerae non-icteric ENT: Normal nose; bilateral nonpurulent nasal rhinorrhea; moist mucous membranes ; pharynx without lesions noted NECK: Supple without meningismus; non-tender CARD: Tachycardic but regular; no murmurs, no clicks, no rubs, no gallops; symmetric distal pulses RESP: Normal chest excursion without splinting or tachypnea; breath sounds clear and equal bilaterally; and expiratory wheezing bilaterally without any obvious rhonchi or rales ABD/GI: Normal bowel sounds; non-distended; soft, non-tender BACK: The back appears normal and is non-tender to palpation, there is no CVA tenderness EXT: Normal ROM in all joints; non-tender to palpation; very minimal 1+ edema to bilateral shins SKIN: No acute lesions noted NEURO: CN II through XII are intact. Moves all extremities equally; Motor and sensory function intact PSYCH: The patient's mood and manner are appropriate. Grooming and personal hygiene are appropriate. Course - Re-evaluation Re-evalutation: Given the history and physical examination we will give the patient a dose of steroids, provide an albuterol inhaler, obtain an ABG, EKG, cardiac panel, and BNP. I do believe PE and aortic dissection to be extremely unlikely. 10/31/17 16:33 BNP as recorded. A liter of fluid has been ordered. EKG shows a heart of 86, normal sinus rhythm, normal axis, no obvious ST elevation or depression 10/31/17 17:47 X-rays show signs of COPD but no obvious infiltrate. Patient's oxygen saturation on 4 L is around 94% at this time. ABG does show a PCO2 of 81% with a pH of 7.31. Patient will be admitted to the hospitalist. The hospitalist would like to assess the patient before providing antibiotics. - Vital Signs Vital signs: Temp Pulse Resp BP Pulse Ox 98 F 109 H 27 H 149/80 H 100 10/31/17 14:58 10/31/17 14:58 10/31/17 17:01 10/31/17 17:01 10/31/17 17:01 - Laboratory Result Diagrams: 10/31/17 15:27 10/31/17 15:27 Laboratory results interpreted by me: 10/31/17 10/31/17 10/31/17 15:27 15:27 16:09 WBC 11.0 H Absolute Neutrophils 8.5 H Carbonic Acid 2.45 H ABG pH 7.33 L ABG pCO2 81.3 H* ABG pO2 35.9 L* ABG HCO3 41.7 H ABG Total CO2 44.2 H ABG O2 Saturation 61.3 L Sodium 148.1 H Carbon Dioxide 39 H Discharge - Discharge Clinical Impression: COPD exacerbation Condition: Fair Disposition: ADMITTED INPATIENT Admitting Provider: Hospitalist Unit Admitted: Telemetry Referrals: SUDARSHAN HAYS MD [Primary Care Provider] - Follow up as needed
[2017-10-31] MEDS: IPRATROPIUM/ALBUTEROL 0.5-2.5 MG/3 ML AMPUL NEB SCH (17:04)
--- NOTE | 2017-10-31 17:06 | RADIOLOGY REPORT (SQ) ---
EXAM DESCRIPTION: CHEST PA/LAT COMPLETED DATE/TIME: 10/31/2017 4:49 pm REASON FOR STUDY: 9, cough and sob COMPARISON: 07/26/2017. NUMBER OF VIEWS: Two view. TECHNIQUE: Frontal and lateral radiographic views of the chest acquired. LIMITATIONS: None. FINDINGS: LUNGS AND PLEURA: Chronic scarring. No infiltrates, masses or pneumothorax. No pleural ef fusion. Attenuated blood vessels and flattened harini-diaphragms. MEDIASTINUM AND HILAR STRUCTURES: No masses. No contour abnormalities. HEART AND VASCULAR STRUCTURES: Heart normal in size and contour. No evidence for failure. BONES: No acute findings. HARDWARE: None in the chest. OTHER: No other significant finding. IMPRESSION: COPD. CHRONIC SCARRING. NO ACUTE RADIOGRAPHIC FINDING IN THE CHEST. TECHNICAL DOCUMENTATION: JOB ID: [id number] [employer]- All Rights Reserved
[2017-10-31 17:25] LABS: ARTERIAL BLOOD BASE EXCESS 12.3 mmol/L; ARTERIAL BLOOD H2CO3 2.45 mmol/L (1.05-1.35); ARTERIAL BLOOD HCO3 41.7 mmol/L (20-26); ARTERIAL BLOOD O2 SATURATION 61.3 % (94-98); ARTERIAL BLOOD PH 7.33 (7.35-7.45); ARTERIAL BLOOD TOTAL CO2 44.2 mmol/L (21-25)
[2017-10-31 17:29] LABS: ARTERIAL BLOOD FIO2 4L; ARTERIAL BLOOD PCO2 81.3 mmHg (35-45); ARTERIAL BLOOD PO2 35.9 mmHg (80-100)
[2017-10-31] MEDS ORDERED: DEXTROSE 5%-WATER 1000 ML 1,000 ML IV PRN ×3 (17:46→19:25)
[2017-10-31] MEDS ORDERED: ONDANSETRON HCL INJ/PF 4 MG/2 ML SDV IV PRN (17:46)
[2017-10-31 17:48] LABS: A TYPE INFLUENZA AG NEGATIVE (NEGATIVE); B INFLUENZA AG NEGATIVE (NEGATIVE)
[2017-10-31] MEDS: ACETAMINOPHEN 325 MG TABLET PO PRN (19:01)
[2017-10-31] MEDS ORDERED: FLUTICASONE NASAL SPRAY 50 MCG/SPRY 120 SPRAY/16 GM ONE (19:09)
[2017-10-31] MEDS ORDERED: LEVOFLOXACIN 750 MG TABLET PO ONE (19:18)
[2017-10-31] MEDS: FLUTICASONE NASAL SPRAY 50 MCG/SPRY 120 SPRAY/16 GM NASL SCH (20:09)
[2017-10-31] MEDS: BUDESONIDE NEB 0.5 MG/2 ML AMPUL NEB SCH (20:14)
[2017-10-31] MEDS: LEVALBUTEROL HCL NEB 1.25 MG/3 ML AMPUL NEB SCH (20:14)
[2017-10-31] MEDS: METHYLPREDNISOLONE INJ 40 MG/1 ML SDV IV SCH (22:07)
[2017-11-01] MEDS: ROPINIROLE HCL 1 MG TABLET PO SCH ×2 (00:11→22:10)
--- NOTE | 2017-11-01 01:30 | PDOC H&P ---
History of Present Illness Admission Date/PCP: 10/31/17 17:57 SUDARSHAN HAYS MD Patient complains of: Worsening shortness of breath History of Present Illness: AUDIE KIMBLE is a 57 year old female with a history of COPD, chronic hypoxic hypercapneic respiratory failure on trilogy and 4L oxygen and alpha 1 antitrypsin deficiency presenting with gradual shortness of breath. Patient states she began with having a runny and productive cough. Her sputum was yellow white and thick. Patient was on treatment with zpack and medrol dose pack which is completed yesterday but is still not feeling any better. She reports chest tightness and worsening shortness of breath. Patient uses trilogy but states that it was not working appropriately. The machine needs to be recalibrated but they won't be able to do that until Thursday. Patient is maintaining her sats on 4L of oxygen. In the ED she was given a dose of solumedrol. ABG showed hypoxic hypercapneic respiratory failure. Flu A/B pending. Hospitalist called to observe patient for COPD exacerbation. Past Medical History Cardiac Medical History: Reports: Congestive Heart Failure - Diastolic, Hypertension Denies: Atrial Fibrillation, DVT, Myocardial Infarction, Hyperlipidema, Pulmonary Embolism Pulmonary Medical History: Reports: Asthma, Bronchitis, Chronic Obstructive Pulmonary Disease (COPD) - home O2 & BIPAP-dependent, Pneumonia Neurological Medical History: Reports: Migraine Denies: Seizures Endocrine Medical History: Denies: Diabetes Mellitus Type 1, Diabetes Mellitus Type 2, Hyperthyroidism, Hypothyroidism GI Medical History: Reports: Gastroesophageal Reflux Disease Denies: Cirrhosis, Hepatitis Musculoskeltal Medical History: Reports: Arthritis Psychiatric Medical History: Denies: Depression Traumatic Medical History: Reports: Pneumothorax - x4 R lung, 2010 when the patient had a right lung bx required a chest tube Past Surgical History Past Surgical History: Reports: Hysterectomy, Tonsillectomy, Tubal Ligation Social History Smoking Status: Former Smoker Frequency of Alcohol Use: None Hx Recreational Drug Use: No Drugs: None Hx Prescription Drug Abuse: No - Advance Directive Resuscitation Status: Full Code Family History Family History: Hyperlipidemia, Hypertension Parental Family History Reviewed: No Children Family History Reviewed: No Sibling(s) Family History Reviewed.: No Medication/Allergy Home Medications: Albuterol Sulfate [Albuterol Sulfate 2.5mg/3 mL] 1 vial IH Q4HP PRN 07/27/17 Albuterol Sulfate [Proair HFA] 2 puff IH Q4HP PRN 07/27/17 Aspirin [Aspirin EC] 81 mg PO DAILY 07/27/17 Budesonide/Formoterol Fumarate [Symbicort HFA 160-4.5 mcg Inhaler 6 gm] 2 puff IH Q12 07/27/17 Ergocalciferol (Vitamin D2) [Drisdol 50,000 unit (1.25MG) Capsule] 1 cap PO [id number] 07/27/17 Fluticasone Propionate [Flonase Nasal [place] 50 Mcg/[place] 16 gm] 1 spray NASL BID 07/27/17 Ipratropium Rodeo [Atrovent 0.02% Neb 0.5 Mg/2.5 Ml Vial.Neb] 0.5 mg IH RTQ4HP PRN 07/27/17 Levalbuterol Tartrate [Xopenex Hfa] 2 gm IH Q4HP PRN 07/27/17 Levocetirizine Dihydrochloride [Xyzal] 5 mg PO QHS 07/27/17 Lisinopril [Prinivil 2.5 mg Tablet] 2.5 mg PO DAILY 07/27/17 Montelukast Sodium [Singulair 10 mg Tablet] 10 mg PO DAILY 07/27/17 Ondansetron HCl [Zofran 4 mg Tablet] 1 tab PO BIDP PRN 07/27/17 Ranitidine HCl [Zantac] 150 mg PO DAILY 07/27/17 Roflumilast [Daliresp 500 mcg Tablet] 500 mcg PO DAILY 07/27/17 Ropinirole HCl [Requip] 1 mg PO QHS 07/27/17 Acetaminophen [Tylenol 325 mg Tablet] 650 mg PO Q4HP PRN tablet 08/01/17 Atenolol [Tenormin 50 mg Tablet] 25 mg PO DAILY tablet 08/01/17 Butalb/Acetaminophen/Caffeine [Fioricet (50-325-40 mg) Tablet] 2 tab PO Q6HP PRN each 08/01/17 Cyclobenzaprine HCl [Flexeril 10 mg Tablet] 10 mg PO Q8HP PRN tablet 08/01/17 Famotidine [Pepcid 20 mg Tablet] 20 mg PO Q12 tablet 10/14/17 Furosemide [Lasix 20 mg Tablet] 20 mg PO DAILY tablet 08/01/17 Furosemide [Lasix 20 mg Tablet] 20 mg PO DAILYP PRN #30 tablet 08/01/17 Levofloxacin [Levaquin 750 mg Tablet] 750 mg PO DAILY #7 tab 08/01/17 Levofloxacin [Levaquin 750 mg Tablet] 750 mg PO QHS tablet 08/01/17 Prednisone [Deltasone 20 mg Tablet] 60 mg PO DAILY@1100 tablet 08/01/17 Allergies/Adverse Reactions: doxepin [Doxepin] Allergy (Verified 07/04/17 11:47) Shortness of Breath, Swelling etodolac [Etodolac] Allergy (Verified 07/04/17 11:47) loratadine [Loratadine] Allergy (Verified 07/04/17 11:47) Shortness of Breath, Swelling meloxicam [Meloxicam] Allergy (Verified 07/04/17 11:47) Sulfa (Sulfonamide Antibiotics) Allergy (Verified 07/04/17 11:47) Shortness of Breath, Swelling Review of Systems Constitutional: ABSENT: chills, fever(s), headache(s), weight gain, weight loss Eyes: ABSENT: visual disturbances Ears: ABSENT: hearing changes Cardiovascular: PRESENT: dyspnea on exertion. ABSENT: chest pain, edema, orthropnea, palpitations Respiratory: PRESENT: cough, sputum. ABSENT: hemoptysis Gastrointestinal: ABSENT: abdominal pain, constipation, diarrhea, hematemesis, hematochezia, nausea, vomiting Genitourinary: ABSENT: dysuria, hematuria Musculoskeletal: ABSENT: joint swelling Integumentary: ABSENT: rash, wounds Neurological: ABSENT: abnormal gait, abnormal speech, confusion, dizziness, focal weakness, syncope Psychiatric: ABSENT: anxiety, depression, homidical ideation, suicidal ideation Endocrine: ABSENT: cold intolerance, heat intolerance, polydipsia, polyuria Hematologic/Lymphatic: ABSENT: easy bleeding, easy bruising Physical Exam Vital Signs: Temp Pulse Resp BP Pulse Ox 98 F 84 28 H 132/71 H 100 10/31/17 14:58 10/31/17 20:17 10/31/17 21:06 10/31/17 21:01 10/31/17 21:06 General appearance: PRESENT: no acute distress, well-developed, well-nourished Head exam: PRESENT: normocephalic Eye exam: PRESENT: EOMI. ABSENT: scleral icterus Ear exam: PRESENT: normal external ear exam Mouth exam: PRESENT: moist, tongue midline Neck exam: ABSENT: carotid bruit, JVD, lymphadenopathy, thyromegaly Respiratory exam: PRESENT: wheezes. ABSENT: rales, rhonchi Cardiovascular exam: PRESENT: RRR. ABSENT: diastolic murmur, rubs, systolic murmur Pulses: PRESENT: normal dorsalis pedis pul Vascular exam: PRESENT: normal capillary refill GI/Abdominal exam: PRESENT: normal bowel sounds, soft. ABSENT: distended, guarding, mass, organolmegaly, rebound, tenderness Rectal exam: PRESENT: deferred Extremities exam: PRESENT: full ROM. ABSENT: calf tenderness, clubbing, pedal edema Neurological exam: PRESENT: alert, awake, oriented to person, oriented to place , oriented to time, oriented to situation, CN II-XII grossly intact. ABSENT: motor sensory deficit Psychiatric exam: PRESENT: appropriate affect, normal mood. ABSENT: homicidal ideation, suicidal ideation Skin exam: PRESENT: dry, intact, warm. ABSENT: cyanosis, rash Results Laboratory Results: 10/31/17 10/31/17 10/31/17 15:27 15:27 15:27 WBC 11.0 H RBC 4.19 Hgb 13.0 Hct 38.6 MCV 92 MCH 31.1 MCHC 33.7 RDW 13.5 Plt Count 167 Seg Neutrophils % 77.6 Lymphocytes % 15.3 Monocytes % 4.8 Eosinophils % 1.8 Basophils % 0.5 Absolute Neutrophils 8.5 H Absolute Lymphocytes 1.7 Absolute Monocytes 0.5 Absolute Eosinophils 0.2 Absolute Basophils 0.1 Sodium 148.1 H Potassium 3.6 Chloride 98 Carbon Dioxide 39 H Anion Gap 11 BUN 12 Creatinine 0.54 Est GFR ( Amer) > 60 Est GFR (Non-Af Amer) > 60 Glucose 81 Calcium 9.6 Magnesium Troponin I < 0.012 NT-Pro-B Natriuret Pep 89 10/31/17 15:27 WBC RBC Hgb Hct MCV MCH MCHC RDW Plt Count Seg Neutrophils % Lymphocytes % Monocytes % Eosinophils % Basophils % Absolute Neutrophils Absolute Lymphocytes Absolute Monocytes Absolute Eosinophils Absolute Basophils Sodium Potassium Chloride Carbon Dioxide Anion Gap BUN Creatinine Est GFR ( Amer) Est GFR (Non-Af Amer) Glucose Calcium Magnesium 2.2 Troponin I NT-Pro-B Natriuret Pep Impressions: Chest X-Ray 10/31/17 15:23 IMPRESSION: COPD. CHRONIC SCARRING. NO ACUTE RADIOGRAPHIC FINDING IN THE CHEST. Assessment & Plan - Diagnosis (1) Acute respiratory failure with hypoxia and hypercapnia Is this a current diagnosis for this admission?: Yes Plan: Due to COPD exacerbation for acute bronchitis. Patient uses trilogy at home however she doesn't believe machine is working properly to be adjusted on . Will consult respiratory and start patient on bipap. Will repeat ABG. (2) Acute bronchitis Is this a current diagnosis for this admission?: Yes Plan: Chest X ray clear however patient with cough and progressive SOB consistent with acute bronchitis. Will order sputum culture. Continue with levaquin, nebs , steroids, singular. (3) COPD exacerbation Is this a current diagnosis for this admission?: Yes Plan: Due to acute bronchitis. On IV solumderol, levaquin as patient was recently on azitthromax, nebs, inhailed sterioids, mucinex and singular. (4) [id number] deficiency Is this a current diagnosis for this admission?: Yes Plan: Continue supportive care. Patient follows with Dr. Downey Pulmonary. (5) Headache Is this a current diagnosis for this admission?: Yes Plan: Patient complaining of headache which may be due to CO2 retention. Patient takes fioricet at home. Will continue. (6) Hypertension Qualifiers: Hypertension type: essential hypertension Qualified Code(s): I10 - Essential (primary) hypertension (7) Diastolic CHF Qualifiers: Congestive heart failure chronicity: chronic Qualified Code(s): I50.32 - Chronic diastolic (congestive) heart failure Plan: Patient with grade 2 diastolic dysfunction. Patient reports being swollen however appears euvolemic and BNP is not elevated. Monitor closely as patient is being given fluids. Patient is not on lasix at home. (8) Hypernatremia Is this a current diagnosis for this admission?: Yes Plan: Patient with sodium for 148 secondary to dehydration. Will give 1 bag of D5W and follow up. Monitor for vollume overload as patient has grade 2 diastolic dysfunction. (9) Oxygen dependent Is this a current diagnosis for this admission?: Yes Plan: Patient on 4L of oxygen at home. Patient is maintaining her sats on 4L. - Time Time Spent: 30 to 50 Minutes Anticipated discharge: Home Within: Other - Inpatient Certification Medical Necessity: Significant Comorbidiites Make Outpatient Treatment Too Risky , Need Close Monitoring Due to Risk of Patient Decompensation, Need For IV Fluids
[2017-11-01] MEDS: LEVALBUTEROL HCL NEB 1.25 MG/3 ML AMPUL NEB SCH ×4 (02:19→19:49)
[2017-11-01] MEDS: LANSOPRAZOLE 30 MG TAB.RAP.DR PO SCH (06:13)
[2017-11-01] MEDS: METHYLPREDNISOLONE INJ 40 MG/1 ML SDV IV SCH ×3 (06:13→22:09)
[2017-11-01 06:22] LABS: ANION GAP 8 (5-19); BLOOD UREA NITROGEN 14 mg/dL (7-20); CALCIUM 9.3 mg/dL (8.4-10.2); CARBON DIOXIDE 36 mmol/L (22-30); CHLORIDE 99 mmol/L (98-107); GLUCOSE 122 mg/dL (75-110); MAGNESIUM 2.1 mg/dL (1.6-2.3); SODIUM 142.8 mmol/L (137-145)
[2017-11-01 07:16] LABS: POTASSIUM 4.7 mmol/L (3.6-5.0)
[2017-11-01] MEDS: BUDESONIDE NEB 0.5 MG/2 ML AMPUL NEB SCH ×2 (08:41→19:49)
--- NOTE | 2017-11-01 08:48 | EKG REPORT ---
SEVERITY:- NORMAL ECG - SINUS RHYTHM : Confirmed by: Anuel Arevalo MD 01-Nov-2017 08:47:27
[2017-11-01] MEDS: ASPIRIN 81 MG TABLET, ENT COATED PO SCH (09:23)
[2017-11-01] MEDS: FAMOTIDINE 20 MG TABLET PO SCH (09:23)
[2017-11-01] MEDS: ATENOLOL 50 MG TABLET PO SCH (09:24)
[2017-11-01] MEDS: ENOXAPARIN SODIUM INJ 40 MG/0.4 ML DISP.SYRIN SUBCUT SCH (09:25)
[2017-11-01] MEDS: BUTALB/ACETAMINOPHEN/CAFFEINE 1 TAB EACH PO PRN ×2 (09:25→16:35)
[2017-11-01] MEDS: MONTELUKAST SODIUM 10 MG TABLET PO SCH (09:26)
[2017-11-01] MEDS: FLUTICASONE NASAL SPRAY 50 MCG/SPRY 120 SPRAY/16 GM NASL SCH ×2 (09:27→17:35)
[2017-11-01] MEDS: GUAIFENESIN 600 MG TABLET.SA PO SCH ×2 (09:27→22:09)
[2017-11-01] MEDS: ROFLUMILAST 500 MCG TABLET PO SCH (09:39)
[2017-11-01] MEDS ORDERED: LISINOPRIL 5 MG TABLET PO SCH (10:00)
--- NOTE | 2017-11-01 11:47 | PDOC PROGRESS REPORT ---
Subjective Progress Note for:: 11/01/17 Subjective:: The patient is a 57-year-old female who has severe COPD. She has a history of alpha-1 antitrypsin deficiency. She is normally on 4 L of oxygen and has a home ventilator. She comes in yesterday with increasing shortness of breath. Her illness began about 5 days ago. 1 of her grandchildren is ill at home with a runny nose and cough. She started to have a cough and increasing shortness of breath. She had now has thick, discolored sputum. She does not have any hemoptysis. She failed outpatient therapy with oral prednisone and oral azithromycin. She is not feeling much better this morning. Reason For Visit: COPD, URI, DEHYDRATION Physical Exam Vital Signs: Temp Pulse Resp BP Pulse Ox 98 F 90 25 H 140/91 H 100 10/31/17 14:58 11/01/17 02:19 11/01/17 09:00 11/01/17 09:00 11/01/17 09:00 Additional comments: The patient ate and leaning forward. She is able to speak in full sentences, but, her respiratory rate is still elevated and she still appears to be labored with mild use of accessory muscles. Her facial appearance is unremarkable. Her lungs demonstrate severe wheezing bilaterally both anteriorly and posteriorly. Her cardiac exam is regular and I do not appreciate any murmurs, gallops or rubs. The abdomen is soft and flat. Bowel sounds are present in all 4 quadrants. There is no guarding or rebound present. The lower extremities are unremarkable. The skin is warm. The skin is clean, dry and intact without lesions or rashes. Results Laboratory Results: 11/01/17 05:15 11/01/17 05:15 Sodium 142.8 Potassium 4.7 D Chloride 99 Carbon Dioxide 36 H Anion Gap 8 BUN 14 Creatinine 0.61 Est GFR ( Amer) > 60 Est GFR (Non-Af Amer) > 60 Glucose 122 H Calcium 9.3 Magnesium 2.1 Impressions: Chest X-Ray 10/31/17 15:23 IMPRESSION: COPD. CHRONIC SCARRING. NO ACUTE RADIOGRAPHIC FINDING IN THE CHEST. Assessment & Plan - Diagnosis (1) Acute bronchitis Is this a current diagnosis for this admission?: Yes Plan: The patient failed outpatient therapy with oral azithromycin and prednisone. Continue IV corticosteroids, bronchodilators and Levaquin. (2) COPD exacerbation Is this a current diagnosis for this admission?: Yes Plan: Treat as above. (3) Hypernatremia Is this a current diagnosis for this admission?: Yes Plan: Resolved. (4) Acute respiratory failure with hypoxia and hypercapnia Is this a current diagnosis for this admission?: Yes Plan: Treat as above. (5) [id number] deficiency Is this a current diagnosis for this admission?: Yes Plan: The patient follows with a local rod placer, Dr. Downey. (6) Headache Is this a current diagnosis for this admission?: Yes Plan: resolved (7) Hypertension Qualifiers: Hypertension type: essential hypertension Qualified Code(s): I10 - Essential (primary) hypertension Plan: Stable at present. Some hypotension was noted upon admission. Will follow. (9) Diastolic CHF Qualifiers: Congestive heart failure chronicity: chronic Qualified Code(s): I50.32 - Chronic diastolic (congestive) heart failure Plan: Patient appears to be euvolemic at this time. (10) Oxygen dependent Is this a current diagnosis for this admission?: Yes Plan: Continue supplemental oxygen and bilevel noninvasive ventilation. - Time Time Spent with patient: 25-34 minutes - Inpatient Certification Medical Necessity: Failure to Improve With Outpatient Therapy, Significant Comorbidiites Make Outpatient Treatment Too Risky, Need Close Monitoring Due to Risk of Patient Decompensation, Need For Continuous Telemetry Monitoring, Need for Nebulizer Therapy and Monitoring of Response, Need for IV Antibiotics, Risk of Complication if Not Cared For in Hospital - The patient was placed on observation status. Unfortunately, she continues to have respiratory distress with use of accessory muscles. She is not stable for discharge at this time. She will need to be changed to inpatient status. She will require greater than 2 midnights for disease treatment and management.
[2017-11-01] MEDS: IPRATROPIUM BROMIDE 0.02% NEB 0.5 MG/2.5 ML AMPUL NEB SCH ×2 (13:46→19:49)
[2017-11-01] MEDS ORDERED: IPRATROPIUM BROMIDE 0.02% NEB 0.5 MG/2.5 ML AMPUL NEB SCH (16:00)
[2017-11-01] MEDS: LEVOFLOXACIN 750 MG TABLET PO SCH (17:35)
[2017-11-02] MEDS: LEVALBUTEROL HCL NEB 1.25 MG/3 ML AMPUL NEB SCH ×4 (02:24→20:22)
[2017-11-02] MEDS: IPRATROPIUM BROMIDE 0.02% NEB 0.5 MG/2.5 ML AMPUL NEB SCH ×4 (02:24→20:23)
[2017-11-02 05:28] LABS: ANION GAP 7 (5-19); BLOOD UREA NITROGEN 18 mg/dL (7-20); CALCIUM 9.2 mg/dL (8.4-10.2); CARBON DIOXIDE 36 mmol/L (22-30); CHLORIDE 99 mmol/L (98-107); GLUCOSE 131 mg/dL (75-110); MAGNESIUM 2.2 mg/dL (1.6-2.3); POTASSIUM 4.7 mmol/L (3.6-5.0); SODIUM 142.2 mmol/L (137-145)
[2017-11-02] MEDS: LANSOPRAZOLE 30 MG TAB.RAP.DR PO SCH (06:15)
[2017-11-02] MEDS: METHYLPREDNISOLONE INJ 40 MG/1 ML SDV IV SCH (06:15)
[2017-11-02] MEDS: BUDESONIDE NEB 0.5 MG/2 ML AMPUL NEB SCH ×2 (08:05→20:22)
[2017-11-02] MEDS: BUTALB/ACETAMINOPHEN/CAFFEINE 1 TAB EACH PO PRN ×2 (08:48→18:08)
[2017-11-02] MEDS: ASPIRIN 81 MG TABLET, ENT COATED PO SCH (10:20)
[2017-11-02] MEDS: ROFLUMILAST 500 MCG TABLET PO SCH (10:20)
[2017-11-02] MEDS: FAMOTIDINE 20 MG TABLET PO SCH (10:20)
[2017-11-02] MEDS: GUAIFENESIN 600 MG TABLET.SA PO SCH ×2 (10:21→23:04)
[2017-11-02] MEDS: MONTELUKAST SODIUM 10 MG TABLET PO SCH (10:21)
[2017-11-02] MEDS: ENOXAPARIN SODIUM INJ 40 MG/0.4 ML DISP.SYRIN SUBCUT SCH (10:30)
[2017-11-02] MEDS: FLUTICASONE NASAL SPRAY 50 MCG/SPRY 120 SPRAY/16 GM NASL SCH ×2 (10:33→18:06)
--- NOTE | 2017-11-02 10:57 | PDOC PROGRESS REPORT ---
Subjective Progress Note for:: 11/02/17 Subjective:: The patient is a 57-year-old female who has severe COPD. She has a history of alpha-1 antitrypsin deficiency. She is normally on 4 L of oxygen and has a home ventilator. She presented with increasing shortness of breath. 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 She started to have a cough and increasing shortness of breath. She then developed thick, discolored sputum. She does not have any hemoptysis. She failed outpatient therapy with oral prednisone and oral azithromycin. Today, she states that her breathing is better and her cough is less purulent. Reason For Visit: COPD EXACERBATION Physical Exam Vital Signs: Temp Pulse Resp BP Pulse Ox 97.4 F 88 16 119/57 L 99 11/02/17 07:35 11/02/17 08:05 11/02/17 08:05 11/02/17 07:35 11/02/17 08:05 Intake & Output 11/01/17 11/02/17 11/03/17 06:59 06:59 06:59 Intake Total 1588 Balance 1588 Weight 65.3 kg Additional comments: The patient does not appear as tachypneic today as yesterday. She has increased air movement both anteriorly and posteriorly. She does continue to have wheezing on expiration bilaterally. Her cardiac exam is regular without murmurs, gallops or rubs. The abdomen is soft and flat. Bowel sounds are present in the lower quadrants. She does not have any guarding or rebound present and there are no hernias or masses present. The lower extremities are very thin. No pitting edema is present. The patient has purpura on the extremities and multiple skin tears. None of the skin skin tears appear to be infected. Results Laboratory Results: 11/02/17 04:40 11/02/17 04:40 Sodium 142.2 Potassium 4.7 Chloride 99 Carbon Dioxide 36 H Anion Gap 7 BUN 18 Creatinine 0.63 Est GFR ( Amer) > 60 Est GFR (Non-Af Amer) > 60 Glucose 131 H Calcium 9.2 Magnesium 2.2 Impressions: Chest X-Ray 10/31/17 15:23 IMPRESSION: COPD. CHRONIC SCARRING. NO ACUTE RADIOGRAPHIC FINDING IN THE CHEST. Assessment & Plan - Diagnosis (1) Acute bronchitis Is this a current diagnosis for this admission?: Yes Plan: The patient failed outpatient therapy with oral azithromycin and prednisone. Continue IV corticosteroids, bronchodilators and Levaquin. Sputum gram stain has demonstrated GPC in pairs suggesting Strep pneumococcus. (2) COPD exacerbation Is this a current diagnosis for this admission?: Yes Plan: Treat as above. (3) Hypernatremia Is this a current diagnosis for this admission?: Yes Plan: Resolved. (4) Acute respiratory failure with hypoxia and hypercapnia Is this a current diagnosis for this admission?: Yes Plan: In addition to therapies above, the patient is continuing to receive supplemental oxygen at 4 L while awake and intermittent noninvasive ventilation with BiPAP as needed and while asleep. (5) Paxmu-0-tfxftchwjsl deficiency Is this a current diagnosis for this admission?: Yes Plan: The patient follows with a local switchboard operator helper, Dr. Downey. (6) Headache Is this a current diagnosis for this admission?: Yes Plan: resolved (7) Hypertension Qualifiers: Hypertension type: essential hypertension Qualified Code(s): I10 - Essential (primary) hypertension Plan: Stable at present. Some hypotension was noted upon admission and this is resolved. (9) Diastolic CHF Qualifiers: Congestive heart failure chronicity: chronic Qualified Code(s): I50.32 - Chronic diastolic (congestive) heart failure Plan: Patient appears to be euvolemic at this time. BP appears under good control at this time. (10) Oxygen dependent Is this a current diagnosis for this admission?: Yes Plan: Continue supplemental oxygen and bilevel noninvasive ventilation. - Time Time Spent with patient: 25-34 minutes - Inpatient Certification Medical Necessity: Failure to Improve With Outpatient Therapy, Significant Comorbidiites Make Outpatient Treatment Too Risky, Need Close Monitoring Due to Risk of Patient Decompensation, Need for Nebulizer Therapy and Monitoring of Response, Need for IV Antibiotics
[2017-11-02] MEDS ORDERED: ONDANSETRON HCL INJ/PF 4 MG/2 ML SDV IV PRN (11:00)
[2017-11-02] MEDS: ATENOLOL 50 MG TABLET PO SCH (11:14)
[2017-11-02] MEDS: METHYLPREDNISOLONE INJ 125 MG/2 ML SDV IV SCH ×2 (13:55→23:04)
[2017-11-02] MEDS: ACETAMINOPHEN 325 MG TABLET PO PRN (13:56)
[2017-11-02] MEDS: LEVOFLOXACIN 750 MG TABLET PO SCH (18:08)
[2017-11-02] MEDS: ROPINIROLE HCL 1 MG TABLET PO SCH (23:04)
[2017-11-03] MEDS: IPRATROPIUM BROMIDE 0.02% NEB 0.5 MG/2.5 ML AMPUL NEB SCH ×4 (02:06→19:49)
[2017-11-03] MEDS: LEVALBUTEROL HCL NEB 1.25 MG/3 ML AMPUL NEB SCH ×4 (02:06→19:50)
[2017-11-03] MEDS: ACETAMINOPHEN 325 MG TABLET PO PRN ×3 (04:43→15:33)
[2017-11-03 05:36] LABS: ANION GAP 6 (5-19); BLOOD UREA NITROGEN 22 mg/dL (7-20); CARBON DIOXIDE 39 mmol/L (22-30); CHLORIDE 99 mmol/L (98-107); GLUCOSE 108 mg/dL (75-110); MAGNESIUM 2.2 mg/dL (1.6-2.3); POTASSIUM 4.2 mmol/L (3.6-5.0); SODIUM 144.4 mmol/L (137-145)
[2017-11-03] MEDS: METHYLPREDNISOLONE INJ 125 MG/2 ML SDV IV SCH (05:58)
[2017-11-03] MEDS: BUDESONIDE NEB 0.5 MG/2 ML AMPUL NEB SCH ×2 (08:14→19:50)
--- NOTE | 2017-11-03 09:56 | PDOC PROGRESS REPORT ---
Subjective Progress Note for:: 11/03/17 Subjective:: The patient is a 57-year-old female who has severe COPD. She has a history of alpha-1 antitrypsin deficiency. She is normally on 4 L of oxygen and has a home ventilator. She presented with increasing shortness of breath. 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 She started to have a cough and increasing shortness of breath. She then developed thick, discolored sputum. She does not have any hemoptysis. She failed outpatient therapy with oral prednisone and oral azithromycin. Today, she states that her breathing is better and her cough is less purulent. The patient is slowly starting to feel better. She has less dyspnea than on admission, but, she is not yet back at baseline. She told me today that she is 30% worse than her baseline. Her cough is subsiding. She feels that she starting to bring stuff up. Reason For Visit: COPD EXACERBATION Physical Exam Vital Signs: Temp Pulse Resp BP Pulse Ox 98.1 F 75 26 H 123/62 100 11/03/17 07:27 11/03/17 07:27 11/03/17 07:27 11/03/17 07:27 11/03/17 07:27 Intake & Output 11/02/17 11/03/17 11/04/17 06:59 06:59 06:59 Intake Total 1588 1268 Balance 1588 1268 Weight 65.3 kg 66.1 kg Additional comments: The patient was lying in bed when I entered the room. She was on the telephone talking to her . Her voice seemed a lot stronger than yesterday. However, she is still tachypneic at baseline and with speaking. Her respiratory rate is approximately 16-18. The patient has very little air movement and her breath sounds sound to be tubular today. Her exam is not necessarily worse. Her air excursion does seem to be a bit better. Her cardiac exam demonstrates a regular rate and rhythm without murmurs, gallops or rubs. The abdomen is soft and flat. Bowel sounds are present. She does not have guarding or rebound noted and there are no hernias or masses present. The lower extremities are unremarkable. The skin is warm dry and intact. She does have purpura present. She has a little bit of flushing in her cheeks but otherwise no new skin lesions or rashes. Results Laboratory Results: 11/03/17 04:28 11/03/17 04:28 Sodium 144.4 Potassium 4.2 Chloride 99 Carbon Dioxide 39 H Anion Gap 6 BUN 22 H Creatinine 0.62 Est GFR ( Amer) > 60 Est GFR (Non-Af Amer) > 60 Glucose 108 Calcium 9.0 Magnesium 2.2 Impressions: Chest X-Ray 10/31/17 15:23 IMPRESSION: COPD. CHRONIC SCARRING. NO ACUTE RADIOGRAPHIC FINDING IN THE CHEST. Assessment & Plan - Diagnosis (1) Acute bronchitis Is this a current diagnosis for this admission?: Yes Plan: The patient failed outpatient therapy with oral azithromycin and prednisone. Continue IV corticosteroids, bronchodilators and Levaquin. Sputum gram stain has demonstrated GPC in pairs suggesting Strep pneumococcus. The patient is still too tenuous to switch to oral therapy. (2) COPD exacerbation Is this a current diagnosis for this admission?: Yes Plan: Treat as above. (3) Hypernatremia Is this a current diagnosis for this admission?: Yes Plan: Resolved. (4) Acute respiratory failure with hypoxia and hypercapnia Is this a current diagnosis for this admission?: Yes Plan: In addition to therapies above, the patient is continuing to receive supplemental oxygen at 4 L while awake and intermittent noninvasive ventilation with BiPAP as needed and while asleep. (5) Mbzfq-6-nqimahmuycw deficiency Is this a current diagnosis for this admission?: Yes Plan: The patient follows with a local assembly and packing supervisor, Dr. Downey. Patient told me that she is not receiving supplemental therapy. 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 It sounds like she does not meet criteria for supplemental therapy. (6) Headache Is this a current diagnosis for this admission?: Yes Plan: resolved (7) Hypertension Qualifiers: Hypertension type: essential hypertension Qualified Code(s): I10 - Essential (primary) hypertension Plan: Stable at present. Some hypotension was noted upon admission and this is resolved. (9) Diastolic CHF Qualifiers: Congestive heart failure chronicity: chronic Qualified Code(s): I50.32 - Chronic diastolic (congestive) heart failure Plan: Patient appears to be euvolemic at this time. BP appears under good control at this time. (10) Oxygen dependent Is this a current diagnosis for this admission?: Yes Plan: Continue supplemental oxygen and bilevel noninvasive ventilation. - Time Time Spent with patient: 15-24 minutes - Inpatient Certification Medical Necessity: Failure to Improve With Outpatient Therapy, Significant Comorbidiites Make Outpatient Treatment Too Risky, Need Close Monitoring Due to Risk of Patient Decompensation, Need for Nebulizer Therapy and Monitoring of Response, Need for IV Antibiotics - Plan Summary Plan Summary: Patient is slowly improving. However, I feel that she needs another day of IV steroids and antibiotics. The sputum culture is still outstanding. She is still growing rare gram-positive cocci in pairs. While this could be normal oral solange it is suspicious for Streptococcus pneumonia. Hopefully, tomorrow we can switch the patient to oral therapy with the plan to discharge on .
[2017-11-03] MEDS ORDERED: METHYLPREDNISOLONE INJ 125 MG/2 ML SDV IV SCH (10:00)
[2017-11-03] MEDS: FLUTICASONE NASAL SPRAY 50 MCG/SPRY 120 SPRAY/16 GM NASL SCH ×2 (10:21→17:32)
[2017-11-03] MEDS: GUAIFENESIN 600 MG TABLET.SA PO SCH ×2 (10:21→21:15)
[2017-11-03] MEDS: FAMOTIDINE 20 MG TABLET PO SCH (10:22)
[2017-11-03] MEDS: ATENOLOL 50 MG TABLET PO SCH (10:22)
[2017-11-03] MEDS: ASPIRIN 81 MG TABLET, ENT COATED PO SCH (10:22)
[2017-11-03] MEDS: ROFLUMILAST 500 MCG TABLET PO SCH (10:22)
[2017-11-03] MEDS: MONTELUKAST SODIUM 10 MG TABLET PO SCH (10:22)
[2017-11-03] MEDS: ENOXAPARIN SODIUM INJ 40 MG/0.4 ML DISP.SYRIN SUBCUT SCH (10:26)
[2017-11-03] MEDS ORDERED: ATENOLOL 50 MG TABLET PO ONE (10:45)
[2017-11-03] MEDS: BUTALB/ACETAMINOPHEN/CAFFEINE 1 TAB EACH PO PRN (17:32)
[2017-11-03] MEDS: METHYLPREDNISOLONE INJ 40 MG/1 ML SDV IV SCH (17:32)
[2017-11-03] MEDS: LEVOFLOXACIN 750 MG TABLET PO SCH (17:32)
[2017-11-03] MEDS: ROPINIROLE HCL 1 MG TABLET PO SCH (21:15)
[2017-11-04] MEDS: LEVALBUTEROL HCL NEB 1.25 MG/3 ML AMPUL NEB SCH ×4 (02:06→19:40)
[2017-11-04] MEDS: IPRATROPIUM BROMIDE 0.02% NEB 0.5 MG/2.5 ML AMPUL NEB SCH ×4 (02:06→19:40)
[2017-11-04] MEDS: METHYLPREDNISOLONE INJ 40 MG/1 ML SDV IV SCH ×2 (05:12→18:21)
[2017-11-04] MEDS: BUDESONIDE NEB 0.5 MG/2 ML AMPUL NEB SCH (07:56)
[2017-11-04] MEDS: ASPIRIN 81 MG TABLET, ENT COATED PO SCH (09:46)
[2017-11-04] MEDS: GUAIFENESIN 600 MG TABLET.SA PO SCH ×2 (09:47→21:39)
[2017-11-04] MEDS: ENOXAPARIN SODIUM INJ 40 MG/0.4 ML DISP.SYRIN SUBCUT SCH (09:47)
[2017-11-04] MEDS: MONTELUKAST SODIUM 10 MG TABLET PO SCH (09:47)
[2017-11-04] MEDS: ROFLUMILAST 500 MCG TABLET PO SCH (09:47)
[2017-11-04] MEDS: FLUTICASONE NASAL SPRAY 50 MCG/SPRY 120 SPRAY/16 GM NASL SCH ×2 (09:47→18:21)
[2017-11-04] MEDS: FAMOTIDINE 20 MG TABLET PO SCH (09:47)
[2017-11-04] MEDS: BUTALB/ACETAMINOPHEN/CAFFEINE 1 TAB EACH PO PRN (09:50)
--- NOTE | 2017-11-04 11:37 | PDOC PROGRESS REPORT ---
Subjective Progress Note for:: 11/04/17 Subjective:: The patient is a 57-year-old female who has severe COPD. She has a history of alpha-1 antitrypsin deficiency. She is normally on 4 L of oxygen and has a home ventilator. She presented with increasing shortness of breath. 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 She started to have a cough and increasing shortness of breath. She then developed thick, discolored sputum. She does not have any hemoptysis. She failed outpatient therapy with oral prednisone and oral azithromycin. Yesterday, she stated that she was starting to feel better, however she had a bad night. She frequently gets headaches when her breathing is labored. She has a frontal headache this morning. This is a typical headache that she gets when she has an exacerbation with her breathing. She does not feel better when compared to yesterday. Of note, her sputum culture has been finalized and shows reduced normal solange. No pathogen was identified. Reason For Visit: COPD EXACERBATION Physical Exam Vital Signs: Temp Pulse Resp BP Pulse Ox 98.3 F 85 16 143/78 H 100 11/04/17 07:24 11/04/17 07:56 11/04/17 07:56 11/04/17 07:24 11/04/17 07:56 Intake & Output 11/03/17 11/04/17 11/05/17 06:59 06:59 06:59 Intake Total 1268 1534 Balance 1268 1534 Weight 66.1 kg 67.2 kg Additional comments: The patient was sitting upright in Fowlers position this morning. She does appear to be tachypneic with conversation. Her respiratory rate is approximately 18-20. Her lungs continue to show end expiratory wheezing both anteriorly and posteriorly. Her cardiac exam is regular without murmurs, gallops or rubs. The abdomen is soft and flat. Bowel sounds are present in the lower quadrants. She does not have guarding or rebound present and there are no hernias or masses present. The lower extremities are warm to touch without any pitting edema. The skin is warm dry and intact without lesions or rashes. Results Laboratory Results: 11/03/17 04:28 11/01/17 14:54 Tracheal Aspirate Gram Stain - Final 11/01/17 14:54 Tracheal Aspirate Sputum Culture - Final REDUCED NORMAL SOLANGE Impressions: Chest X-Ray 10/31/17 15:23 IMPRESSION: COPD. CHRONIC SCARRING. NO ACUTE RADIOGRAPHIC FINDING IN THE CHEST. Assessment & Plan - Diagnosis (1) Acute bronchitis Is this a current diagnosis for this admission?: Yes Plan: The patient failed outpatient therapy with oral azithromycin and prednisone. The patient is still receiving IV corticosteroids. I do not want to switch her to oral therapy yet as she is still too tenuous but I did decrease her dose of methylprednisolone today. She is receiving oral Levaquin. I will treat her for 5 days at the 750 mg dose. Hopefully, she can be switched to oral prednisone tomorrow and discharged or Thursday. (2) COPD exacerbation Is this a current diagnosis for this admission?: Yes Plan: Treat as above. (3) Hypernatremia Is this a current diagnosis for this admission?: Yes Plan: Resolved. (4) Acute respiratory failure with hypoxia and hypercapnia Is this a current diagnosis for this admission?: Yes Plan: In addition to therapies above, the patient is continuing to receive supplemental oxygen at 4 L while awake and intermittent noninvasive ventilation with BiPAP as needed and while asleep. (5) Kgbjk-0-auosouxgtem deficiency Is this a current diagnosis for this admission?: Yes Plan: The patient follows with a local communications project manager, Dr. Downey. Patient told me that she is not receiving supplemental therapy. 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 It sounds like she does not meet criteria for supplemental therapy. (6) Headache Is this a current diagnosis for this admission?: Yes Plan: The patient's headache has recurred. This appears to wax and wane with her respiratory status. It may be based on her CO2 levels and or her work of breathing. She will be given medication as needed. There are no danger signs to her symptoms. (7) Hypertension Qualifiers: Hypertension type: essential hypertension Qualified Code(s): I10 - Essential (primary) hypertension Plan: Stable at present. Some hypotension was noted upon admission and this is resolved. (9) Diastolic CHF Qualifiers: Congestive heart failure chronicity: chronic Qualified Code(s): I50.32 - Chronic diastolic (congestive) heart failure Plan: Patient appears to be euvolemic at this time. BP appears under good control at this time. (10) Oxygen dependent Is this a current diagnosis for this admission?: Yes Plan: Continue supplemental oxygen and bilevel noninvasive ventilation. - Time Time Spent with patient: 15-24 minutes - Inpatient Certification Medical Necessity: Significant Comorbidiites Make Outpatient Treatment Too Risky , Need Close Monitoring Due to Risk of Patient Decompensation, Need for Nebulizer Therapy and Monitoring of Response
[2017-11-04] MEDS: LEVOFLOXACIN 750 MG TABLET PO SCH (18:20)
[2017-11-04] MEDS: BUDESONIDE/FORMOTEROL 160-4.5 MCG 60 PUFF/6 GM MDI IH SCH (21:38)
[2017-11-04] MEDS: ROPINIROLE HCL 1 MG TABLET PO SCH (21:39)
[2017-11-05] MEDS: LEVALBUTEROL HCL NEB 1.25 MG/3 ML AMPUL NEB SCH ×4 (02:16→20:07)
[2017-11-05] MEDS: IPRATROPIUM BROMIDE 0.02% NEB 0.5 MG/2.5 ML AMPUL NEB SCH ×4 (02:16→20:07)
[2017-11-05] MEDS: METHYLPREDNISOLONE INJ 40 MG/1 ML SDV IV SCH ×2 (06:13→18:09)
[2017-11-05] MEDS: FLUTICASONE NASAL SPRAY 50 MCG/SPRY 120 SPRAY/16 GM NASL SCH ×2 (06:14→18:09)
[2017-11-05] MEDS: MONTELUKAST SODIUM 10 MG TABLET PO SCH (09:23)
[2017-11-05] MEDS: BUTALB/ACETAMINOPHEN/CAFFEINE 1 TAB EACH PO PRN (09:23)
[2017-11-05] MEDS: GUAIFENESIN 600 MG TABLET.SA PO SCH ×2 (09:24→21:10)
[2017-11-05] MEDS: FAMOTIDINE 20 MG TABLET PO SCH (09:24)
[2017-11-05] MEDS: ASPIRIN 81 MG TABLET, ENT COATED PO SCH (09:24)
[2017-11-05] MEDS: BUDESONIDE/FORMOTEROL 160-4.5 MCG 60 PUFF/6 GM MDI IH SCH ×2 (09:25→21:10)
[2017-11-05] MEDS: ENOXAPARIN SODIUM INJ 40 MG/0.4 ML DISP.SYRIN SUBCUT SCH (09:28)
[2017-11-05] MEDS: ROFLUMILAST 500 MCG TABLET PO SCH (09:48)
[2017-11-05] MEDS ORDERED: DIPHENHYDRAMINE HCL 25 MG CAPSULE PO ONE (14:00)
[2017-11-05 14:25] LABS: HEMATOCRIT 36.8 % (36.0-47.0); HEMOGLOBIN 12.4 g/dL (12.0-15.5); MEAN CORPUSCULAR HEMOGLOBIN 30.8 pg (27.0-33.4); MEAN CORPUSCULAR HGB CONC 33.6 g/dL (32.0-36.0); MEAN CORPUSCULAR VOLUME 92 fl (80-97); PLATELET COUNT 150 10^3/uL (150-450); RED BLOOD COUNT 4.01 10^6/uL (3.72-5.28); RED CELL DISTRIBUTION WIDTH 13.6 % (11.5-14.0); WHITE BLOOD COUNT 8.9 10^3/uL (4.0-10.5)
[2017-11-05 14:38] LABS: ANION GAP 8 (5-19); BLOOD UREA NITROGEN 18 mg/dL (7-20); CALCIUM 9.4 mg/dL (8.4-10.2); CARBON DIOXIDE 37 mmol/L (22-30); CHLORIDE 95 mmol/L (98-107); GLUCOSE 158 mg/dL (75-110); POTASSIUM 4.5 mmol/L (3.6-5.0)
[2017-11-05] MEDS: ACETAMINOPHEN 325 MG TABLET PO PRN (14:45)
--- NOTE | 2017-11-05 16:44 | PDOC PROGRESS REPORT ---
Subjective Progress Note for:: 11/05/17 Subjective:: The patient is a 57 year old female with past medical history of COPD, chronic hypoxic hypercapnic respiratory failure on tetralogy and 4 L oxygen with a alpha 1 antitrypsin deficiency. The patient was admitted on 10/31/17 after failing outpatient therapy with steroids and zpack. She has been placed on BiPAP, IV solumedrol, and levaquin with supportive care. Gradually improving. Pt is seen with present. She states that she is slowly improving but is concerned about being discharged to home too soon. She did not sleep well overnight and requests a sleep aid. The is concerned that her labs have not been checked in a couple of days and requests lab work. Reason For Visit: COPD EXACERBATION Physical Exam Vital Signs: Temp Pulse Resp BP Pulse Ox 98.2 F 94 18 116/64 98 11/05/17 11:43 11/05/17 13:25 11/05/17 13:25 11/05/17 11:43 11/05/17 11:43 Intake & Output 11/04/17 11/05/17 11/06/17 06:59 06:59 06:59 Intake Total 1534 1866 Output Total 750 Balance 1534 1116 Weight 67.2 kg 68.4 kg General appearance: PRESENT: no acute distress, well-developed, well-nourished, other - overweight Head exam: PRESENT: atraumatic, normocephalic Eye exam: PRESENT: conjunctiva pink, EOMI, PERRLA. ABSENT: scleral icterus Ear exam: PRESENT: normal external ear exam Mouth exam: PRESENT: moist, tongue midline Neck exam: ABSENT: carotid bruit, JVD, lymphadenopathy, thyromegaly Respiratory exam: PRESENT: prolonged expiratory phas, rhonchi, wheezes - throughout, other - currently on 4Lpm via NC. ABSENT: rales Cardiovascular exam: PRESENT: RRR, +S1, +S2. ABSENT: diastolic murmur, rubs, systolic murmur Pulses: PRESENT: normal dorsalis pedis pul Vascular exam: PRESENT: normal capillary refill GI/Abdominal exam: PRESENT: normal bowel sounds, soft. ABSENT: distended, guarding, mass, organolmegaly, rebound, tenderness Rectal exam: PRESENT: deferred Extremities exam: PRESENT: full ROM. ABSENT: calf tenderness, clubbing, pedal edema Neurological exam: PRESENT: alert, awake, oriented to person, oriented to place , oriented to time, oriented to situation, CN II-XII grossly intact. ABSENT: motor sensory deficit Psychiatric exam: PRESENT: appropriate affect, normal mood. ABSENT: homicidal ideation, suicidal ideation Skin exam: PRESENT: dry, intact, warm. ABSENT: cyanosis, rash Results Laboratory Results: 11/03/17 04:28 Impressions: Chest X-Ray 10/31/17 15:23 IMPRESSION: COPD. CHRONIC SCARRING. NO ACUTE RADIOGRAPHIC FINDING IN THE CHEST. Assessment & Plan - Diagnosis (1) Acute bronchitis Is this a current diagnosis for this admission?: Yes Plan: Slightly improving. The patient failed outpatient therapy with oral azithromycin and prednisone. Continue the Solu-Medrol today as the patient continues to have expiratory wheezing throughout. Hopefully will be ready to transition to p.o. prednisone tomorrow. Currently on day 4/5 of oral levaquin. Continue scheduled Atrovent and as needed Xopenex nebulizer treatments. Continue home dosed Symbicort and Daliresp. Continue Singulair and mucinex. Incentive spirometry and flutter valve to bedside. (2) COPD exacerbation Is this a current diagnosis for this admission?: Yes Plan: Plan as above. (3) Acute respiratory failure with hypoxia and hypercapnia Is this a current diagnosis for this admission?: Yes Plan: Plan as above. Continue supplemental oxygen at 4 L/min by nasal cannula while awake with intermittent noninvasive ventilation with BiPAP as needed and while asleep. (4) Rqzkc-[id number]-[id number] deficiency Is this a current diagnosis for this admission?: Yes Plan: Keep follow-up appointment with outpatient county nurse, Dr. Nguyen. 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 (5) Headache Is this a current diagnosis for this admission?: Yes Plan: Typical for the patient. [place] is available as needed. (6) Hypertension Qualifiers: Hypertension type: essential hypertension Qualified Code(s): I10 - Essential (primary) hypertension Plan: Stable at present; will monitor. (7) Diastolic CHF Qualifiers: Congestive heart failure chronicity: chronic Qualified Code(s): I50.32 - Chronic diastolic (congestive) heart failure Plan: The patient is euvolemic. Blood pressure is under good control. Weight is noted to be up 3 kg; will watch closely for evidence of volume overload. (8) Oxygen dependent Is this a current diagnosis for this admission?: Yes (9) Hypernatremia Is this a current diagnosis for this admission?: Yes Plan: Resolved. - Time Time Spent with patient: 25-34 minutes Anticipated discharge: Home Within: within 36 hours
[2017-11-05] MEDS: LEVOFLOXACIN 750 MG TABLET PO SCH (18:09)
[2017-11-05] MEDS: DIPHENHYDRAMINE HCL 25 MG CAPSULE PO SCH (21:10)
[2017-11-05] MEDS: ROPINIROLE HCL 1 MG TABLET PO SCH (21:13)
[2017-11-06] MEDS: IPRATROPIUM BROMIDE 0.02% NEB 0.5 MG/2.5 ML AMPUL NEB SCH ×4 (02:22→20:28)
[2017-11-06] MEDS: LEVALBUTEROL HCL NEB 1.25 MG/3 ML AMPUL NEB SCH ×4 (02:22→20:28)
[2017-11-06] MEDS: METHYLPREDNISOLONE INJ 40 MG/1 ML SDV IV SCH (06:06)
[2017-11-06] MEDS: ACETAMINOPHEN 325 MG TABLET PO PRN (08:00)
[2017-11-06] MEDS: GUAIFENESIN 600 MG TABLET.SA PO SCH ×2 (09:41→21:07)
[2017-11-06] MEDS: ASPIRIN 81 MG TABLET, ENT COATED PO SCH (09:41)
[2017-11-06] MEDS: ROFLUMILAST 500 MCG TABLET PO SCH (09:42)
[2017-11-06] MEDS: FAMOTIDINE 20 MG TABLET PO SCH (09:42)
[2017-11-06] MEDS: BUDESONIDE/FORMOTEROL 160-4.5 MCG 60 PUFF/6 GM MDI IH SCH ×2 (09:42→21:07)
[2017-11-06] MEDS: MONTELUKAST SODIUM 10 MG TABLET PO SCH (09:42)
[2017-11-06] MEDS: FLUTICASONE NASAL SPRAY 50 MCG/SPRY 120 SPRAY/16 GM NASL SCH ×2 (09:43→17:51)
[2017-11-06] MEDS: ENOXAPARIN SODIUM INJ 40 MG/0.4 ML DISP.SYRIN SUBCUT SCH (09:43)
[2017-11-06] MEDS ORDERED: IBUPROFEN 600 MG TABLET PO PRN (10:46)
--- NOTE | 2017-11-06 10:49 | PDOC PROGRESS REPORT ---
Subjective Progress Note for:: 11/06/17 Subjective:: The patient is a 57 year old female with past medical history of COPD, chronic hypoxic hypercapnic respiratory failure on tetralogy and 4 L oxygen with a alpha 1 antitrypsin deficiency. The patient was admitted on 10/31/17 after failing outpatient therapy with steroids and zpack. She has been placed on BiPAP, IV solumedrol, and levaquin with supportive care. Gradually improving. Pt is seen sitting up to the edge of bed on supplemental oxygen via nasal cannula at 5 L/min. The patient states that she slept well last night and is thankful for the Benadryl. She reports that she continues to have a productive cough, but that her overall work of breathing seems to have improved slightly overnight. She has no new questions or concerns. Reason For Visit: COPD EXACERBATION Physical Exam Vital Signs: Temp Pulse Resp BP Pulse Ox 97.6 F 80 18 122/74 97 11/06/17 07:51 11/06/17 09:05 11/06/17 09:05 11/06/17 07:51 11/06/17 09:05 Intake & Output 11/05/17 11/06/17 11/07/17 06:59 06:59 06:59 Intake Total 1866 2342 Output Total 750 4400 Balance 1116 -2058 Weight 68.4 kg 68.9 kg General appearance: PRESENT: no acute distress, well-developed, well-nourished Head exam: PRESENT: atraumatic, normocephalic Eye exam: PRESENT: conjunctiva pink, EOMI, PERRLA. ABSENT: scleral icterus Ear exam: PRESENT: normal external ear exam Mouth exam: PRESENT: moist, tongue midline Neck exam: ABSENT: carotid bruit, JVD, lymphadenopathy, thyromegaly Respiratory exam: PRESENT: prolonged expiratory phas, rhonchi, wheezes - End expiratory wheezing throughout. ABSENT: rales, tachypnea Cardiovascular exam: PRESENT: RRR, +S1, +S2. ABSENT: diastolic murmur, rubs, systolic murmur Pulses: PRESENT: normal dorsalis pedis pul Vascular exam: PRESENT: normal capillary refill GI/Abdominal exam: PRESENT: normal bowel sounds, soft. ABSENT: distended, guarding, mass, organolmegaly, rebound, tenderness Rectal exam: PRESENT: deferred Extremities exam: PRESENT: full ROM. ABSENT: calf tenderness, clubbing, pedal edema Neurological exam: PRESENT: alert, awake, oriented to person, oriented to place , oriented to time, oriented to situation, CN II-XII grossly intact. ABSENT: motor sensory deficit Psychiatric exam: PRESENT: appropriate affect, normal mood. ABSENT: homicidal ideation, suicidal ideation Skin exam: PRESENT: dry, intact, warm. ABSENT: cyanosis, rash Results Laboratory Results: 11/05/17 14:17 11/05/17 14:17 11/05/17 11/05/17 14:17 14:17 WBC 8.9 RBC 4.01 Hgb 12.4 Hct 36.8 MCV 92 MCH 30.8 MCHC 33.6 RDW 13.6 Plt Count 150 Sodium 140.0 Potassium 4.5 Chloride 95 L Carbon Dioxide 37 H Anion Gap 8 BUN 18 Creatinine 0.70 Est GFR ( Amer) > 60 Est GFR (Non-Af Amer) > 60 Glucose 158 H Calcium 9.4 Impressions: Chest X-Ray 10/31/17 15:23 IMPRESSION: COPD. CHRONIC SCARRING. NO ACUTE RADIOGRAPHIC FINDING IN THE CHEST. Assessment & Plan - Diagnosis (1) Acute bronchitis Is this a current diagnosis for this admission?: Yes Plan: Gradual improvement. The patient failed outpatient therapy with oral azithromycin and prednisone. We will transition from IV Solu-Medrol to p.o. prednisone. Currently on day 5/5 of oral levaquin; will receive her last dose this evening. Continue scheduled Atrovent and as needed Xopenex nebulizer treatments. Continue home dosed Symbicort and Daliresp. Continue Singulair and mucinex. Incentive spirometry and flutter valve to bedside. (2) COPD exacerbation Is this a current diagnosis for this admission?: Yes Plan: Plan as above. (3) Acute respiratory failure with hypoxia and hypercapnia Is this a current diagnosis for this admission?: Yes Plan: Plan as above. Continue supplemental oxygen at 4 L/min by nasal cannula while awake with intermittent noninvasive ventilation with BiPAP as needed and while asleep. (4) Dljhg-1-qhwvflihhpq deficiency Is this a current diagnosis for this admission?: Yes Plan: Keep follow-up appointment with outpatient motion picture critic, Dr. Nguyen. 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 (5) Headache Is this a current diagnosis for this admission?: Yes Plan: Typical for the patient. Fiorecett is available as needed. Pt requests to try Ibuprofen. (6) Hypertension Qualifiers: Hypertension type: essential hypertension Qualified Code(s): I10 - Essential (primary) hypertension Plan: Stable at present; will monitor. (7) Diastolic CHF Qualifiers: Congestive heart failure chronicity: chronic Qualified Code(s): I50.32 - Chronic diastolic (congestive) heart failure Plan: The patient is euvolemic. Blood pressure is under good control. Weight is noted to be up 3 kg; will watch closely for evidence of volume overload. (8) Oxygen dependent Is this a current diagnosis for this admission?: Yes (9) Hypernatremia Is this a current diagnosis for this admission?: Yes Plan: Resolved. - Time Time Spent with patient: 25-34 minutes Medications reviewed and adjusted accordingly: Yes Anticipated discharge: Home Within: within 48 hours
[2017-11-06] MEDS: LEVOFLOXACIN 750 MG TABLET PO SCH (17:50)
[2017-11-06] MEDS ORDERED: PREDNISONE 20 MG TABLET PO SCH (18:00)
[2017-11-06] MEDS: ROPINIROLE HCL 1 MG TABLET PO SCH (21:07)
[2017-11-06] MEDS: DIPHENHYDRAMINE HCL 25 MG CAPSULE PO SCH (21:07)
[2017-11-07] MEDS: LEVALBUTEROL HCL NEB 1.25 MG/3 ML AMPUL NEB SCH ×4 (02:20→19:54)
[2017-11-07] MEDS: IPRATROPIUM BROMIDE 0.02% NEB 0.5 MG/2.5 ML AMPUL NEB SCH ×4 (02:20→19:54)
[2017-11-07] MEDS: ASPIRIN 81 MG TABLET, ENT COATED PO SCH (09:28)
[2017-11-07] MEDS: FLUTICASONE NASAL SPRAY 50 MCG/SPRY 120 SPRAY/16 GM NASL SCH ×2 (09:28→17:44)
[2017-11-07] MEDS: ROFLUMILAST 500 MCG TABLET PO SCH (09:28)
[2017-11-07] MEDS: PREDNISONE 20 MG TABLET PO SCH ×2 (09:29→17:43)
[2017-11-07] MEDS: FAMOTIDINE 20 MG TABLET PO SCH (09:29)
[2017-11-07] MEDS: GUAIFENESIN 600 MG TABLET.SA PO SCH ×2 (09:29→21:37)
[2017-11-07] MEDS: MONTELUKAST SODIUM 10 MG TABLET PO SCH (09:29)
[2017-11-07] MEDS: BUDESONIDE/FORMOTEROL 160-4.5 MCG 60 PUFF/6 GM MDI IH SCH ×2 (09:33→21:37)
[2017-11-07] MEDS: ACETAMINOPHEN 325 MG TABLET PO PRN ×2 (09:33→20:17)
[2017-11-07] MEDS: ENOXAPARIN SODIUM INJ 40 MG/0.4 ML DISP.SYRIN SUBCUT SCH (09:34)
--- NOTE | 2017-11-07 10:20 | PDOC PROGRESS REPORT ---
Subjective Progress Note for:: 11/07/17 Subjective:: The patient is a 57 year old female with past medical history of COPD, chronic hypoxic hypercapnic respiratory failure on tetralogy and 4 L oxygen with a alpha 1 antitrypsin deficiency. The patient was admitted on 10/31/17 after failing outpatient therapy with steroids and zpack. She has been placed on BiPAP, IV solumedrol, and levaquin with supportive care. Gradually improving. Pt is seen sitting up to the edge of bed on supplemental oxygen via nasal cannula at 4 Lpm; which the patient states is her baseline oxygen requirement. She is home O2 dependent. She has no new questions or concerns. Reason For Visit: COPD EXACERBATION Physical Exam Vital Signs: Temp Pulse Resp BP Pulse Ox 97.4 F 121 H 16 132/68 H 97 11/07/17 07:36 11/07/17 08:36 11/07/17 08:36 11/07/17 07:36 11/07/17 08:36 Intake & Output 11/06/17 11/07/17 11/08/17 06:59 06:59 06:59 Intake Total 2342 2925 Output Total 4400 5100 Balance -2057 -2174 Weight 68.9 kg 65.635 kg General appearance: PRESENT: no acute distress, well-developed, well-nourished Head exam: PRESENT: atraumatic, normocephalic Eye exam: PRESENT: conjunctiva pink, EOMI, PERRLA. ABSENT: scleral icterus Ear exam: PRESENT: normal external ear exam Mouth exam: PRESENT: moist, tongue midline Neck exam: ABSENT: carotid bruit, JVD, lymphadenopathy, thyromegaly Respiratory exam: PRESENT: prolonged expiratory phas, rhonchi, wheezes. ABSENT : rales Cardiovascular exam: PRESENT: RRR, +S1, +S2. ABSENT: diastolic murmur, rubs, systolic murmur Pulses: PRESENT: normal dorsalis pedis pul Vascular exam: PRESENT: normal capillary refill GI/Abdominal exam: PRESENT: normal bowel sounds, soft. ABSENT: distended, guarding, mass, organolmegaly, rebound, tenderness Rectal exam: PRESENT: deferred Extremities exam: PRESENT: full ROM. ABSENT: calf tenderness, clubbing, pedal edema Neurological exam: PRESENT: alert, awake, oriented to person, oriented to place , oriented to time, oriented to situation, CN II-XII grossly intact. ABSENT: motor sensory deficit Psychiatric exam: PRESENT: appropriate affect, normal mood. ABSENT: homicidal ideation, suicidal ideation Skin exam: PRESENT: dry, intact, warm. ABSENT: cyanosis, rash Results Laboratory Results: 11/05/17 14:17 11/05/17 14:17 Impressions: Chest X-Ray 10/31/17 15:23 IMPRESSION: COPD. CHRONIC SCARRING. NO ACUTE RADIOGRAPHIC FINDING IN THE CHEST. Assessment & Plan - Diagnosis (1) Acute bronchitis Is this a current diagnosis for this admission?: Yes Plan: Gradual improvement. The patient failed outpatient therapy with oral azithromycin and prednisone. Continue p.o. prednisone; if patient does well, she should be ready for discharge to home in the morning. Completed course ofl levaquin. Continue scheduled Atrovent and as needed Xopenex nebulizer treatments. Continue home dosed Symbicort and Daliresp. Continue Singulair and mucinex. Incentive spirometry and flutter valve to bedside. (2) COPD exacerbation Is this a current diagnosis for this admission?: Yes Plan: Plan as above. (3) Acute respiratory failure with hypoxia and hypercapnia Is this a current diagnosis for this admission?: Yes Plan: Plan as above. Continue supplemental oxygen at 4 L/min by nasal cannula while awake with intermittent noninvasive ventilation with BiPAP as needed and while asleep. (4) Ylqgi-1-bdyyolyqaad deficiency Is this a current diagnosis for this admission?: Yes Plan: Keep follow-up appointment with outpatient terminal operations supervisor, Dr. Nguyen. 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 (5) Headache Is this a current diagnosis for this admission?: Yes Plan: Resolved. Typical for the patient. Ibuprofen and Fiorecett are available as needed. (6) Hypertension Qualifiers: Hypertension type: essential hypertension Qualified Code(s): I10 - Essential (primary) hypertension Plan: Stable at present; will monitor. (7) Diastolic CHF Qualifiers: Congestive heart failure chronicity: chronic Qualified Code(s): I50.32 - Chronic diastolic (congestive) heart failure Plan: The patient is euvolemic. Blood pressure is under good control. The patient is placed on a cardiac diet. Will monitor daily weights. (8) Oxygen dependent Is this a current diagnosis for this admission?: Yes (9) Hypernatremia Is this a current diagnosis for this admission?: Yes Plan: Resolved. - Time Time Spent with patient: 15-24 minutes Medications reviewed and adjusted accordingly: Yes Anticipated discharge: Home Within: within 24 hours
[2017-11-07] MEDS: DIPHENHYDRAMINE HCL 25 MG CAPSULE PO SCH (21:37)
[2017-11-07] MEDS: ROPINIROLE HCL 1 MG TABLET PO SCH (21:37)
[2017-11-08] MEDS: IPRATROPIUM BROMIDE 0.02% NEB 0.5 MG/2.5 ML AMPUL NEB SCH ×2 (02:16→07:44)
[2017-11-08] MEDS: LEVALBUTEROL HCL NEB 1.25 MG/3 ML AMPUL NEB SCH ×2 (02:16→07:44)
[2017-11-08 06:20] LABS: HEMATOCRIT 36.9 % (36.0-47.0); HEMOGLOBIN 12.1 g/dL (12.0-15.5); MEAN CORPUSCULAR HEMOGLOBIN 30.2 pg (27.0-33.4); MEAN CORPUSCULAR HGB CONC 32.7 g/dL (32.0-36.0); MEAN CORPUSCULAR VOLUME 92 fl (80-97); PLATELET COUNT 150 10^3/uL (150-450); RED CELL DISTRIBUTION WIDTH 13.8 % (11.5-14.0); WHITE BLOOD COUNT 12.3 10^3/uL (4.0-10.5)
[2017-11-08 07:37] LABS: ANION GAP 7 (5-19); BLOOD UREA NITROGEN 27 mg/dL (7-20); CALCIUM 9.4 mg/dL (8.4-10.2); CARBON DIOXIDE 36 mmol/L (22-30); CHLORIDE 95 mmol/L (98-107); GLUCOSE 136 mg/dL (75-110); POTASSIUM 5.5 mmol/L (3.6-5.0); SODIUM 138.3 mmol/L (137-145)
[2017-11-08] MEDS: FLUTICASONE NASAL SPRAY 50 MCG/SPRY 120 SPRAY/16 GM NASL SCH (09:36)
[2017-11-08] MEDS: ASPIRIN 81 MG TABLET, ENT COATED PO SCH (09:36)
[2017-11-08] MEDS: MONTELUKAST SODIUM 10 MG TABLET PO SCH (09:37)
[2017-11-08] MEDS: BUDESONIDE/FORMOTEROL 160-4.5 MCG 60 PUFF/6 GM MDI IH SCH (09:37)
[2017-11-08] MEDS: FAMOTIDINE 20 MG TABLET PO SCH (09:37)
[2017-11-08] MEDS: PREDNISONE 20 MG TABLET PO SCH (09:37)
[2017-11-08] MEDS: GUAIFENESIN 600 MG TABLET.SA PO SCH (09:37)
[2017-11-08] MEDS: ROFLUMILAST 500 MCG TABLET PO SCH (09:38)
[2017-11-08] MEDS: ENOXAPARIN SODIUM INJ 40 MG/0.4 ML DISP.SYRIN SUBCUT SCH (09:39)
[2017-11-08 10:15] LABS: ANION GAP 11 (5-19); BLOOD UREA NITROGEN 24 mg/dL (7-20); CALCIUM 9.9 mg/dL (8.4-10.2); CARBON DIOXIDE 35 mmol/L (22-30); CHLORIDE 93 mmol/L (98-107); GLUCOSE 130 mg/dL (75-110); SODIUM 139.1 mmol/L (137-145)
[2017-11-08 10:26] LABS: POTASSIUM 4.2 mmol/L (3.6-5.0)
--- NOTE | 2017-11-08 11:00 | PDOC DISCHARGE SUMMARY ---
General - Admit/Disc Date/PCP Admission Date/Primary Care Provider: 11/01/17 11:47 SUDARSHAN HAYS MD Discharge Date: 11/08/17 - Discharge Diagnosis (1) Acute bronchitis Is this a current diagnosis for this admission?: Yes (2) COPD exacerbation Is this a current diagnosis for this admission?: Yes (3) Acute respiratory failure with hypoxia and hypercapnia Is this a current diagnosis for this admission?: Yes (4) Trzxo-2-sptzodnnder deficiency Is this a current diagnosis for this admission?: Yes (5) Headache Is this a current diagnosis for this admission?: Yes (8) Oxygen dependent Is this a current diagnosis for this admission?: Yes (9) Hypernatremia Is this a current diagnosis for this admission?: Yes - Additional Information Resuscitation Status: Full Code Discharge Diet: As Tolerated Discharge Activity: Activity As Tolerated, Balance Activity w/Rest, Slowly Increase Activity Prescriptions: Butalb/Acetaminophen/Caffeine [Fioricet (50-325-40 mg) Tablet] 2 tab PO Q6HP PRN #14 each PRN Reason: Guaifenesin [Mucinex Sr 600 mg Tablet.sa] 600 mg PO Q12 #30 tablet.sa Prednisone [Deltasone 20 mg Tablet] 20 mg PO ASDIR PRN #20 tablet PRN Reason: Home Medications: Albuterol Sulfate [Albuterol Sulfate 2.5mg/3 mL] 1 vial IH RTQ6HP PRN 07/27/17 Aspirin [Aspirin EC] 81 mg PO DAILY 07/27/17 Ergocalciferol (Vitamin D2) [Drisdol 50,000 unit (1.25MG) Capsule] 50,000 unit PO .[id number] 07/27/17 Ipratropium [place] [Atrovent 0.02% Neb 0.5 mg/2.5 ml Ampul] 0.5 mg IH RTQ6HP PRN 07/27/17 Levocetirizine Dihydrochloride [Xyzal] 5 mg PO QHS 07/27/17 Montelukast Sodium [Singulair 10 mg Tablet] 10 mg PO DAILY 07/27/17 Roflumilast [Daliresp 500 mcg Tablet] 500 mcg PO DAILY 07/27/17 Ropinirole HCl [Requip] 0.5 mg PO QHS 07/27/17 Bisoprolol Fumarate [Zebeta 5 mg Tablet] 2.5 mg PO DAILY 11/01/17 Budesonide/Formoterol Fumarate [Symbicort HFA 160-4.5 mcg Inhaler 6 gm] 2 puff IH Q12 11/01/17 Calcipotriene [Dovonex Cream] 1 applic TP DAILYP PRN 11/01/17 Cyanocobalamin (Vitamin B-12) [Vitamin B-12 Inj 1000 Mcg/1 ml Vial] 1,000 mcg IM .MONTHLY 11/01/17 Gabapentin [Neurontin 100 mg Capsule] 100 mg PO Q8 11/01/17 Butalb/Acetaminophen/Caffeine [Fioricet (50-325-40 mg) Tablet] 2 tab PO Q6HP PRN #14 each 11/08/17 Famotidine [Pepcid 20 mg Tablet] 20 mg PO DAILY #0 tablet 11/08/17 Fluticasone Propionate [Flonase Nasal [place] 50 Mcg/[place] 16 gm] 1 spray NASL BID spray.pump 11/08/17 Guaifenesin [Mucinex Sr 600 mg Tablet.sa] 600 mg PO Q12 #30 tablet.sa 11/08/17 Prednisone [Deltasone 20 mg Tablet] 20 mg PO ASDIR PRN #20 tablet 11/08/17 History of Present Illness History of Present Illness: Per H&P by Dr. Lam: AUDIE KIMBLE is a 57 year old female with a history of COPD, chronic hypoxic hypercapneic respiratory failure on triology and 4L oxygen and alpha 1 antitrypsin deficiency presenting with gradual shortnes of breath. Patient states she began having a runny nose and productive cough. Her sputum was yellow white and thick. Patient was on treatment with zpack and medrol dose pack which is completed yesterday but is still not feeling any better. She reports chest tightness and worsening shortness of breath. Patient uses triology but states that is was not working appropriately. The machine needs to be recalibrated but the wont be able to do that until Thursday. Patient is maintaining her sats on 4L of oxygen. In the ED she was given a dose of solumedrol. ABG showed hypoxic hypercapnic respiratory failure. Flu A/B pending. Hospitalist called to observe patient for COPD exacerbation. Hospital Course Hospital Course: The patient was admitted with acute hypoxic and hypercapneic respiratory failure secondary to a COPD exacerbation. She was admitted to [facility] on continuous cardiac telemetry. She was placed on Levaquin and completed a 5 day course of therapy. She was supported with BiPAP, supplemental oxygen via nasal cannula, duonebs and xopenex nebulized treatments, mucinex, and IV Solu-medrol which was successfully weaned to p.o. prednisone. Her hypernatremia resolved with IVF hydration. The patient did expreience frequent headaches which she reported were of her typical quality and frequency. No red flags were present. Pain was adequately controlled with Fiorecet. At time of discharge, the patient was afebrile with stable vital signs. She has returned to her baseline oxygen requirement and is no longer experiencing dyspnea worse than her norm. She is discharged to home with prescriptions for Fiorecet, mucinex, and a prednisone taper. 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 A long discussion was had with regard to lifestyle modifications (avoidance of tobacco smoke, pet dander, etc..). The patient would likely benefit from outpatient Palliative Care services. Physical Exam Vital Signs: Temp Pulse Resp BP Pulse Ox 97.8 F 93 18 130/75 H 97 11/08/17 07:42 11/08/17 07:44 11/08/17 07:44 11/08/17 07:42 11/08/17 07:44 Intake & Output 11/07/17 11/08/17 11/09/17 06:59 06:59 06:59 Intake Total 2925 2891 Output Total 5100 3800 Balance -2175 -909 Weight 65.635 kg 65.13 kg General appearance: PRESENT: no acute distress, well-developed, well-nourished Head exam: PRESENT: atraumatic, normocephalic Eye exam: PRESENT: conjunctiva pink, EOMI, PERRLA. ABSENT: scleral icterus Ear exam: PRESENT: normal external ear exam Mouth exam: PRESENT: moist, tongue midline Neck exam: ABSENT: carotid bruit, JVD, lymphadenopathy, thyromegaly Respiratory exam: PRESENT: clear to auscultation lashell, symmetrical, unlabored. ABSENT: rales, rhonchi, wheezes Cardiovascular exam: PRESENT: RRR. ABSENT: diastolic murmur, rubs, systolic murmur Pulses: PRESENT: normal dorsalis pedis pul Vascular exam: PRESENT: normal capillary refill GI/Abdominal exam: PRESENT: normal bowel sounds, soft. ABSENT: distended, guarding, mass, organolmegaly, rebound, tenderness Rectal exam: PRESENT: deferred Extremities exam: PRESENT: full ROM. ABSENT: calf tenderness, clubbing, pedal edema Neurological exam: PRESENT: alert, awake, oriented to person, oriented to place , oriented to time, oriented to situation, CN II-XII grossly intact. ABSENT: motor sensory deficit Psychiatric exam: PRESENT: appropriate affect, normal mood. ABSENT: homicidal ideation, suicidal ideation Skin exam: PRESENT: dry, intact, warm. ABSENT: cyanosis, rash Results Laboratory Results: 11/08/17 05:10 11/08/17 09:50 11/08/17 11/08/17 11/08/17 05:10 05:10 09:50 WBC 12.3 H RBC 4.00 Hgb 12.1 Hct 36.9 MCV 92 MCH 30.2 MCHC 32.7 RDW 13.8 Plt Count 150 Sodium 138.3 139.1 Potassium 5.5 H 4.2 D Chloride 95 L 93 L Carbon Dioxide 36 H 35 H Anion Gap 7 11 BUN 27 H 24 H Creatinine 0.64 0.60 Est GFR ( Amer) > 60 > 60 Est GFR (Non-Af Amer) > 60 > 60 Glucose 136 H 130 H Calcium 9.4 9.9 Impressions: Chest X-Ray 10/31/17 15:23 IMPRESSION: COPD. CHRONIC SCARRING. NO ACUTE RADIOGRAPHIC FINDING IN THE CHEST. Qualifiers PATEINT BEING DISCHARGED WITH ANY OF THE FOLLOWING DIAGNOSIS?: No
[2017-11-08 11:51] VITALS: BP 138/66
== END 2017-11-08 13:11 | disposition home or self-care (01) | DRG 190 ==
LOC: ER 14:48 → EH 17:57 → INTOOBSV 17:57 → OBSVTOIN 11-01 11:47 → 3W 11-01 15:18 → 4W 11-05 00:15
PROVIDERS: ADMIT Emergency Medicine; ATTEND Emergency Medicine
PROC: 5A09557 Assistance with Respiratory Ventilation, Greater than 96 Consecutive Hours, Continuous Positive Airway Pressure (ICD-10-PCS; principal; 2017-10-31)
DX: J44.0 Chronic obstructive pulmonary disease with (acute) lower respiratory infection (principal); J96.21 Acute and chronic respiratory failure with hypoxia; J96.22 Acute and chronic respiratory failure with hypercapnia; E87.0 Hyperosmolality and hypernatremia; I50.32 Chronic diastolic (congestive) heart failure; I11.0 Hypertensive heart disease with heart failure; J44.1 Chronic obstructive pulmonary disease with (acute) exacerbation; J20.9 Acute bronchitis, unspecified; K21.9 Gastro-esophageal reflux disease without esophagitis; M19.90 Unspecified osteoarthritis, unspecified site; E88.01 Alpha-1-antitrypsin deficiency; Z98.51 Tubal ligation status; Z82.49 Family history of ischemic heart disease and other diseases of the circulatory system; Z87.891 Personal history of nicotine dependence; Z79.899 Other long term (current) drug therapy; Z90.710 Acquired absence of both cervix and uterus; Z88.2 Allergy status to sulfonamides; Z99.81 Dependence on supplemental oxygen; Z79.82 Long term (current) use of aspirin
CPT/HCPCS: 36415; 71046; 80048; 82803; 83735; 83880; 84484; 85025; 85027; 87070; 87205; 87804; 93005; 93010; 94640; 94660; 94667; 94799; 96361; 96374; 99285; G0378; J1650; J2920; J2930; J3490; J7030; J7060; J7512; J7620

== ENCOUNTER 2018-05-16 20:40 | Inpatient (IN) | payer MEDICARE ==
--- NOTE | 2018-05-16 21:02 | ER Document Report ---
ED Respiratory Problem - General Mode of Arrival: Medic Information source: Patient, Emergency Med Personnel TRAVEL OUTSIDE OF THE [place] IN LAST 30 DAYS: No <CARLOS HIDALGO - Last Filed: 05/16/18 21:08> <CHAPO BEGUM - Last Filed: 05/17/18 01:51> - General Stated Complaint: DIFFICULTY BREATHING Time Seen by Provider: 05/16/18 20:55 Notes: 57 y.o female with COPD, Chronic hypoxic hypercapneic respiratory failure on trilogy and 4L oxygen and alpha 1 antitrypsin deficiency presents to the ED with difficulty breathing of onset yesterday. Pt reports that she has been home with a lowered oxygen level as she moves around and difficulty breathing. She states that she has been coughing up white sputum. She denies any fever. EMS reports a O2 saturation of 82% on room air and a PCO2 of 58 en route. EMS gave Solumedrol and 2 A&As en route. Pt reports using BiPAP at home during the night. (CARLOS HIDALGO) - Related Data Allergies/Adverse Reactions: doxepin [Doxepin] Allergy (Verified 07/04/17 11:47) Shortness of Breath, Swelling etodolac [Etodolac] Allergy (Verified 11/06/17 11:17) loratadine [Loratadine] Allergy (Verified 07/04/17 11:47) Shortness of Breath, Swelling meloxicam [Meloxicam] Allergy (Verified 11/06/17 11:18) omeprazole Allergy (Verified 11/01/17 07:45) Anaphylaxis Sulfa (Sulfonamide Antibiotics) Allergy (Verified 07/04/17 11:47) Shortness of Breath, Swelling Past Medical History - General Information source: Patient - Social History Smoking Status: Former Smoker Lives with: Spouse/Significant other Family History: Hyperlipidemia, Hypertension - Past Medical History Cardiac Medical History: Reports: Hx Congestive Heart Failure - Diastolic, Hx Hypertension Pulmonary Medical History: Reports: Hx Asthma, Hx Bronchitis, Hx COPD - home O2 & BIPAP-dependent, Hx Pneumonia Neurological Medical History: Reports: Hx Migraine Renal/ Medical History: Denies: Hx Peritoneal Dialysis GI Medical History: Reports: Hx Gastroesophageal Reflux Disease Musculoskeletal Medical History: Reports Hx Arthritis, Reports Hx Muscle Weakness Traumatic Medical History: Reports: Hx Pneumothorax - x4 R lung, 2010 when the patient had a right lung bx required a chest tube Past Surgical History: Reports: Hx Gynecologic Surgery, Hx Hysterectomy, Hx Tonsillectomy, Hx Tubal Ligation - Immunizations Hx Diphtheria, Pertussis, Tetanus Vaccination: No Hx Pneumococcal Vaccination: 04/25/09 <CARLOS HIDALGO - Last Filed: 05/16/18 21:08> Review of Systems - Review of Systems Constitutional: No symptoms reported EENT: No symptoms reported Cardiovascular: No symptoms reported Respiratory: See HPI, Cough, Short of breath, Sputum Gastrointestinal: No symptoms reported Genitourinary: No symptoms reported Female Genitourinary: No symptoms reported Musculoskeletal: No symptoms reported Skin: No symptoms reported Hematologic/Lymphatic: No symptoms reported Neurological/Psychological: No symptoms reported -: Yes All other systems reviewed and negative <CARLOS HIDALGO - Last Filed: 05/16/18 21:08> Physical Exam <CARLOS HIDALGO - Last Filed: 05/16/18 21:08> <CHAPO BEGUM - Last Filed: 05/17/18 01:51> - Vital signs Vitals: Resp Pulse Ox 32 H 95 05/16/18 21:02 05/16/18 21:02 - Notes Notes: Physical Exam: General: Alert. HEENT: Normocephalic. Atraumatic. PERRL. Extraocular movements intact. Oropharynx clear. Neck: Supple. Non-tender. Respiratory: Diffuse expiratory and inspiratory wheezes. Tachypnic. Cardiovascular: Regular rate and rhythm. Abdominal: Normal Inspection. Non-tender. No distension. Normal Bowel Sounds. Back: Non-tender. No deformity or step off. Extremities: Moves all four extremities. Upper extremities: Normal inspection. Normal ROM. Lower extremities: Normal inspection. No edema. Normal ROM. Neurological: Normal cognition. AAOx3. Normal speech. Psychological: Normal affect. Normal Mood. Skin: Warm. Dry. Normal color. (CARLOS HIDALGO) Course - Laboratory Result Diagrams: 05/16/18 21:20 05/16/18 21:20 - Diagnostic Test Radiology reviewed: Image reviewed, Reports reviewed - Patient has a new right basilar infiltrate - EKG Interpretation by Nv EKG shows normal: Sinus rhythm, Blanchard, Intervals, QRS Complexes, ST-T Waves Rate: Tachycardia - 133 P Waves: LAE - Consults Dr. Okeefe Time consulted: 00:10 Consulted provider: will come to ER <EKLCHAPO Collado - Last Filed: 05/17/18 01:51> - Vital Signs Vital signs: Temp Pulse Resp BP Pulse Ox 33 H 101/60 92 05/16/18 23:01 05/16/18 23:01 05/16/18 23:01 - Laboratory Laboratory results interpreted by me: 05/16/18 05/16/18 05/16/18 21:20 21:20 21:20 WBC 21.9 H Hgb 11.7 L Hct 35.3 L RDW 15.8 H Plt Count 123 L Seg Neuts % (Manual) 92 H Lymphocytes % (Manual) 1 L Abs Neuts (Manual) 21.0 H Abs Lymphs (Manual) 0.2 L Carbonic Acid ABG pCO2 ABG HCO3 ABG Total CO2 Chloride 95 L Carbon Dioxide 35 H BUN 23 H Glucose 194 H Lactic Acid 2.9 H Creatine Kinase < 20 L Total Protein 6.2 L 05/16/18 23:20 WBC Hgb Hct RDW Plt Count Seg Neuts % (Manual) Lymphocytes % (Manual) Abs Neuts (Manual) Abs Lymphs (Manual) Carbonic Acid 1.98 H ABG pCO2 65.9 H ABG HCO3 35.6 H ABG Total CO2 37.6 H Chloride Carbon Dioxide BUN Glucose Lactic Acid Creatine Kinase Total Protein Critical Care Note - Critical Care Note Total time excluding time spent on procedures (mins): 40 <KELCHAPO Collado - Last Filed: 05/17/18 01:51> Discharge <CARLOS HIDALGO - Last Filed: 05/16/18 21:08> - Discharge Admitting Provider: Hospitalist Unit Admitted: I[facility]U <KELCHAPO Collado - Last Filed: 05/17/18 01:51> - Discharge Clinical Impression: COPD exacerbation Pneumonia Qualifiers: Pneumonia type: due to unspecified organism Laterality: right Lung location: lower lobe of lung Qualified Code(s): J18.1 - Lobar pneumonia, unspecified organism Leukocytosis Qualifiers: Leukocytosis type: bandemia Qualified Code(s): D72.825 - Bandemia Sepsis Qualifiers: Sepsis type: sepsis due to unspecified organism Qualified Code(s): A41.9 - Sepsis, unspecified organism Hypotension Qualifiers: Hypotension type: other hypotension type Qualified Code(s): I95.89 - Other hypotension Condition: Fair Disposition: ADMITTED INPATIENT Referrals: SUDARSHAN HAYS MD [Primary Care Provider] - Follow up as needed Scribe Attestation: 05/16/18 21:38 I personally performed the services described in the documentation, reviewed and edited the documentation which was dictated to the scribe in my presence, and it accurately records my words and actions. (CHAPO BEUGM) Scribe Documentation - Scribe Written by Pankaj:: Pankaj Velazquez 05/16/18 [id number] acting as scribe for :: Kel <CARLOS HIDALGO - Last Filed: 05/16/18 21:08>
[2018-05-16] MEDS ORDERED: ALBUTEROL SULFATE 0.083% NEB 2.5 MG/3 ML AMPUL NEB ONE ×2 (21:12→23:32)
[2018-05-16 22:12] LABS: ALANINE AMINOTRANSFERASE 18 U/L (9-52); ALBUMIN 3.8 g/dL (3.5-5.0); ALKALINE PHOSPHATASE 66 U/L (38-126); ANION GAP 11 (5-19); ASPARTATE AMINO TRANSFERASE 15 U/L (14-36); BILIRUBIN,DIRECT 0.3 mg/dL (0.0-0.4); BILIRUBIN,TOTAL 0.8 mg/dL (0.2-1.3); BLOOD UREA NITROGEN 23 mg/dL (7-20); CARBON DIOXIDE 35 mmol/L (22-30); CHLORIDE 95 mmol/L (98-107); GLUCOSE 194 mg/dL (75-110); SODIUM 141.2 mmol/L (137-145); TOTAL PROTEIN 6.2 g/dL (6.3-8.2)
[2018-05-16 22:14] LABS: CREATINE KINASE < 20 U/L (30-135)
[2018-05-16 22:30] LABS: HEMATOCRIT 35.3 % (36.0-47.0); HEMOGLOBIN 11.7 g/dL (12.0-15.5); MEAN CORPUSCULAR HEMOGLOBIN 30.8 pg (27.0-33.4); MEAN CORPUSCULAR HGB CONC 33.1 g/dL (32.0-36.0); MEAN CORPUSCULAR VOLUME 93 fl (80-97); PLATELET COUNT 123 10^3/uL (150-450); RED BLOOD COUNT 3.81 10^6/uL (3.72-5.28); RED CELL DISTRIBUTION WIDTH 15.8 % (11.5-14.0); WHITE BLOOD COUNT 21.9 10^3/uL (4.0-10.5)
--- NOTE | 2018-05-16 22:44 | EKG REPORT ---
SEVERITY:- BORDERLINE ECG - SINUS TACHYCARDIA PROBABLE LEFT ATRIAL ABNORMALITY : Confirmed by: Shana Greene MD 16-May-2018 22:44:05
[2018-05-16 22:56] LABS: ABSOLUTE LYMPHOCYTES# (MANUAL) 0.2 10^3/uL (0.5-4.7); ABSOLUTE MONOCYTES # (MANUAL) 0.7 10^3/uL (0.1-1.4); BAND NEUTROPHILS % (MANUAL) 4 % (3-5); BASOPHILS % (MANUAL) 0 % (0-2); EOSINOPHILS % (MANUAL) 0 % (0-6); LYMPHOCYTES % (MANUAL) 1 % (13-45); MONOCYTES % (MANUAL) 3 % (3-13); SEGMENTED NEUTROPHILS % (MAN) 92 % (42-78); TOTAL CELLS COUNTED 100
[2018-05-16 22:58] LABS: ANISOCYTOSIS 1+; PLATELET COMMENT DECREASED; PLATELET LARGE PRESENT
--- NOTE | 2018-05-16 23:07 | RADIOLOGY REPORT (SQ) ---
EXAM DESCRIPTION: XR CHEST 1 VIEW COMPLETED DATE/TME: 05/16/2018 22:04 CLINICAL HISTORY: COPD exacerbation COMPARISON: 10/31/2017 FINDINGS: Single frontal view of the chest. The cardiomediastinal silhouette has normal size and contour. Hyperinflation and chronic interstitial opacities. Interval development of right basilar airspace opacity and small right pleural effusion. No pneumothorax. No acute osseous abnormalities. Single view of the chest. Leads overlie the chest. Upper abdominal soft tissues are unremarkable. IMPRESSION: 1. Right basilar airspace opacity concerning for pneumonia and small right pleural effusion. 2. Findings suggest obstructive lung disease.
[2018-05-16] MEDS ORDERED: LEVOFLOXACIN 750 MG/D5W RTU 750 MG/150 ML RTUPB IV ONE (23:30)
[2018-05-16 23:53] LABS: ARTERIAL BLOOD H2CO3 1.98 mmol/L (1.05-1.35); ARTERIAL BLOOD HCO3 35.6 mmol/L (20-26); ARTERIAL BLOOD O2 SATURATION 95.4 % (94-98); ARTERIAL BLOOD PCO2 65.9 mmHg (35-45); ARTERIAL BLOOD PH 7.35 (7.35-7.45); ARTERIAL BLOOD PO2 83.3 mmHg (80-100); ARTERIAL BLOOD TOTAL CO2 37.6 mmol/L (21-25)
[2018-05-16 23:55] LABS: ARTERIAL BLOOD FIO2 40%
[2018-05-17] MEDS ORDERED: CEFEPIME 1 GM/D5W RTU 1 GM/50 ML RTUPB IV ONE (00:12)
[2018-05-17] MEDS ORDERED: VANCOMYCIN HCL INJ 1000 MG VIAL IV ONE (00:12)
[2018-05-17] MEDS ORDERED: NORMAL SALINE 1000 ML 500 ML IV ONE (00:15)
[2018-05-17] MEDS ORDERED: NORMAL SALINE 1000 ML 1,000 ML IV PRN ×4 (02:50→06:28)
[2018-05-17] MEDS ORDERED: DEXTROSE 40% GEL 15 GM TUBE PO PRN ×2 (02:50)
[2018-05-17] MEDS ORDERED: GLUCAGON,HUMAN RECOMB 1 MG INJ SUBCUT PRN (02:50)
[2018-05-17] MEDS ORDERED: DEXTROSE 50%-WATER 25 GM/50 ML DISP.SYRIN IV PRN ×2 (02:50)
[2018-05-17] MEDS ORDERED: VANCOMYCIN HCL 0 MG in DEXTROSE 5%-WATER 250 ML IV NR (03:00)
[2018-05-17 04:04] LABS: HEMATOCRIT 29.8 % (36.0-47.0); HEMOGLOBIN 10.1 g/dL (12.0-15.5); MEAN CORPUSCULAR HGB CONC 33.8 g/dL (32.0-36.0); MEAN CORPUSCULAR VOLUME 92 fl (80-97); RED BLOOD COUNT 3.26 10^6/uL (3.72-5.28); RED CELL DISTRIBUTION WIDTH 15.3 % (11.5-14.0); WHITE BLOOD COUNT 17.1 10^3/uL (4.0-10.5)
--- NOTE | 2018-05-17 04:29 | PDOC H&P ---
History of Present Illness Admission Date/PCP: 05/17/18 01:53 SUDARSHAN HAYS MD Patient complains of: Difficulty breathing at home and right-sided pain on inspiration History of Present Illness: AUDIE CEDILLO is a 57 year old woman with alpha-1 antitrypsin deficiency, chronic hypoxemic hypercapnic respiratory failure and COPD. She uses a trilogy at home, she is on 4 L of nasal cannula oxygen at home. She is admitted to this hospital frequently with exacerbations. She was last admitted in October of this year. Patient states that she, yesterday and possibly the day before, had shortness of breath with rapidly worsening right-sided pleuritic chest pain. She states that she has been coughing up white sputum, has had worsening difficulty breathing over the past day or so.. She denies any fever. EMS reports a O2 saturation of 82% on room air and a PCO2 of 58 en route. Secondary to the symptoms EMS was called and patient was brought to the ER. She is being admitted to the hospitalist service with right lower lobe pneumonia as seen on chest x-ray and consistent with symptoms. She is also having significant wheezing, COPD exacerbation. Past Medical History Cardiac Medical History: Reports: Congestive Heart Failure - Diastolic, Hypertension Denies: Atrial Fibrillation, DVT, Myocardial Infarction, Hyperlipidema, Pulmonary Embolism Pulmonary Medical History: Reports: Asthma, Bronchitis, Chronic Obstructive Pulmonary Disease (COPD) - home O2 & BIPAP-dependent, Pneumonia, Other - Alpha- 1 antitrypsin EENT Medical History: Denies: Eyes Neurological Medical History: Reports: Migraine Denies: Ischemic CVA, Seizures Endocrine Medical History: Denies: Diabetes Mellitus Type 1, Diabetes Mellitus Type 2, Hyperthyroidism, Hypothyroidism Renal/ Medical History: Denies: End Stage Renal Disease Malignancy Medical History: Denies: None GI Medical History: Reports: Gastroesophageal Reflux Disease Denies: Cirrhosis, Hepatitis Musculoskeltal Medical History: Reports: Arthritis Skin Medical History: Denies: Eczema, Psoriasis Psychiatric Medical History: Reports: Tobacco Dependency Denies: Alcohol Dependency, Depression, Substance Abuse Traumatic Medical History: Reports: Pneumothorax - x4 R lung, 2010 when the patient had a right lung bx required a chest tube Hematology: Denies: Bleeding Tendencies Infectious Medical History: Reports: None Past Surgical History Past Surgical History: Reports: Hysterectomy, Tonsillectomy, Tubal Ligation Social History Information Source: Patient, [facility] Records Lives with: Spouse/Significant other Smoking Status: Current Some Day Smoker Frequency of Alcohol Use: None Hx Recreational Drug Use: No Drugs: None Hx Prescription Drug Abuse: No - Advance Directive Resuscitation Status: Do Not Intubate Surrogate healthcare decision maker:: Solomon Cedillo phone [phone] Family History Family History: Hyperlipidemia, Hypertension Parental Family History Reviewed: Yes Children Family History Reviewed: Yes Sibling(s) Family History Reviewed.: Yes Medication/Allergy Home Medications: Albuterol Sulfate [Albuterol Sulfate 2.5mg/3 mL] 1 vial IH [id number] PRN 07/27/17 Aspirin [Aspirin EC] 81 mg PO DAILY 07/27/17 Ergocalciferol (Vitamin D2) [Drisdol 50,000 unit (1.25MG) Capsule] 50,000 unit PO .[id number] 07/27/17 Levocetirizine Dihydrochloride [Xyzal] 5 mg PO QHS 07/27/17 Montelukast Sodium [Singulair 10 mg Tablet] 10 mg PO DAILY 07/27/17 Roflumilast [Daliresp 500 mcg Tablet] 500 mcg PO DAILY 07/27/17 Ropinirole HCl [Requip] 0.5 mg PO QHS 07/27/17 Bisoprolol Fumarate [Zebeta 5 mg Tablet] 2.5 mg PO DAILY 11/01/17 Budesonide/Formoterol Fumarate [Symbicort HFA 160-4.5 mcg Inhaler 6 gm] 2 puff IH Q12 11/01/17 Calcipotriene [Dovonex Cream] 1 applic TP DAILYP PRN 11/01/17 Cyanocobalamin (Vitamin B-12) [Vitamin B-12 Inj 1000 Mcg/1 ml Vial] 1,000 mcg IM .MONTHLY 11/01/17 Gabapentin [Neurontin 100 mg Capsule] 100 mg PO Q8 11/01/17 Butalb/Acetaminophen/Caffeine [Fioricet (50-325-40 mg) Tablet] 2 tab PO Q6HP PRN #14 each 11/08/17 Famotidine [Pepcid 20 mg Tablet] 20 mg PO DAILY #0 tablet 11/08/17 Fluticasone Propionate [Flonase Nasal [place] 50 Mcg/[place] 16 gm] 1 spray NASL BID spray.pump 11/08/17 Guaifenesin [Mucinex Sr 600 mg Tablet.sa] 600 mg PO Q12 #30 tablet.sa 11/08/17 Ipratropium/Albuterol Sulfate [Duoneb 3 ml Ampul] 3 ml [facility] RTQ8 #100 vial.neb Prednisone [Deltasone 20 mg Tablet] 20 mg PO ASDIR PRN #20 tablet 11/08/17 Allergies/Adverse Reactions: doxepin [Doxepin] Allergy (Verified 07/04/17 11:47) Shortness of Breath, Swelling etodolac [Etodolac] Allergy (Verified 11/06/17 11:17) loratadine [Loratadine] Allergy (Verified 07/04/17 11:47) Shortness of Breath, Swelling meloxicam [Meloxicam] Allergy (Verified 11/06/17 11:18) omeprazole Allergy (Verified 11/01/17 07:45) Anaphylaxis Sulfa (Sulfonamide Antibiotics) Allergy (Verified 07/04/17 11:47) Shortness of Breath, Swelling Review of Systems ROS unobtainable: Other - difficult due to bipap Constitutional: PRESENT: fatigue Eyes: ABSENT: visual disturbances Ears: ABSENT: hearing changes Nose, Mouth, and Throat: ABSENT: headache(s), sore throat Cardiovascular: PRESENT: chest pain, dyspnea on exertion. ABSENT: edema Respiratory: PRESENT: cough, dyspnea, sputum. ABSENT: hemoptysis Gastrointestinal: ABSENT: abdominal pain, constipation, diarrhea, nausea, vomiting Genitourinary: ABSENT: dysuria Musculoskeletal: ABSENT: deformity, joint swelling Integumentary: ABSENT: lesions Neurological: ABSENT: confusion, syncope Psychiatric: PRESENT: depression. ABSENT: anxiety Endocrine: ABSENT: cold intolerance, heat intolerance Hematologic/Lymphatic: ABSENT: easy bleeding, easy bruising Allergic/Immunologic: ABSENT: seasonal rhinorrhea Physical Exam Vital Signs: Temp Pulse Resp BP Pulse Ox 25 H 95/59 L 100 05/17/18 02:25 05/17/18 02:25 05/17/18 02:25 General appearance: PRESENT: cooperative, mild distress Head exam: PRESENT: atraumatic, normocephalic Eye exam: PRESENT: EOMI. ABSENT: conjunctival injection, scleral icterus Ear exam: PRESENT: normal external ear exam Mouth exam: PRESENT: dry mucosa, tongue midline Respiratory exam: PRESENT: prolonged expiratory phas, rales, wheezes. ABSENT: accessory muscle use, retraction, rhonchi, unlabored Cardiovascular exam: PRESENT: RRR. ABSENT: systolic murmur Pulses: PRESENT: normal radial pulses GI/Abdominal exam: PRESENT: hyperactive bowel sounds, soft. ABSENT: ascites, distended, tenderness Rectal exam: ABSENT: deferred Gentrourinary exam: ABSENT: indwelling catheter Extremities exam: ABSENT: joint swelling, pedal edema Musculoskeletal exam: ABSENT: deformity Neurological exam: PRESENT: alert, awake, oriented to person, oriented to place , oriented to situation, CN II-XII grossly intact Psychiatric exam: PRESENT: appropriate affect. ABSENT: anxious Skin exam: PRESENT: dry, intact, warm. ABSENT: erythema Results Impressions: Chest X-Ray 05/16/18 22:04 IMPRESSION: 1. Right basilar airspace opacity concerning for pneumonia and small right pleural effusion. 2. Findings suggest obstructive lung disease. Assessment & Plan - Diagnosis (1) Sepsis Qualifiers: Sepsis type: sepsis due to unspecified organism Qualified Code(s): A41.9 - Sepsis, unspecified organism Is this a current diagnosis for this admission?: Yes Plan: Patient has tachycardia and leukocytosis along with a pneumonia. Also been trending low. Lactic acid level was checked in the ER and was elevated, then on my repeat it had increased. She received 500 mL of saline in the ER and then is put on saline at 125 mL/h. Have given her 1 L saline bolus continued the normal saline drip. We will recheck her lactic acid level and proceed from there. She does have heart failure but we must treat the sepsis at this point. (2) Acute and chronic respiratory failure with hypercapnia Is this a current diagnosis for this admission?: Yes Plan: Patient has chronic hypoxemic and hypercapnic respiratory failure. She is dependent upon oxygen at home and ventilation. She is admitted with COPD exacerbation worsening her hypercapnia and pneumonia worsening her hypoxemia. We are treating both of those per below. With BiPAP and repeat ABG was see that her CO2 has come down and she is probably closer to her baseline at this point. Her oxygen has been within normal range for the last several hours as well. (3) Right lower lobe pneumonia Is this a current diagnosis for this admission?: Yes Plan: Unknown pathogen at this point. Sputum culture and blood cultures are pending. Patient is on cefepime 2 g IV every 12, Levaquin 750 mg daily and vancomycin dosed by pharmacy. These antibiotics are chosen secondary to her meeting sepsis parameters. (4) COPD exacerbation Is this a current diagnosis for this admission?: Yes Plan: Likely secondary to pneumonia. Patient also states she smokes a few cigarettes from time to time. She is currently on BiPAP. She is on Solu-Medrol 60 mg IV every 8 hours, first dose of Solu-Medrol given in the ambulance on the way to the ER. She will also be on duo nebs every 6 hours scheduled and Xopenex every 2 hours as needed. Antibiotics for the pneumonia as well. (5) Pleuritic chest pain Is this a current diagnosis for this admission?: Yes Plan: Likely secondary to the right lower lobe pneumonia. Patient's pain is improved but not gone. She declines use of pain medications at this time. (6) [id number] deficiency Is this a current diagnosis for this admission?: Yes Plan: Patient continues to smoke for just a few cigarettes daily. (7) BiPAP (biphasic positive airway pressure) dependence Is this a current diagnosis for this admission?: Yes Plan: She is doing well on BiPAP. CO2 has decreased probably close to her baseline. We will try to get her BiPAP off and feed her when that is safe to do so. (8) Diastolic CHF Is this a current diagnosis for this admission?: Yes Plan: Patient has diastolic heart failure. We will start her heart failure meds when her medications are reconciled and as her blood pressure will tolerate. We have had to bolus her with IV fluids secondary to elevated lactic acid level and sepsis parameters. We will monitor her respiratory status in general very closely at this point. (9) Oxygen dependent Is this a current diagnosis for this admission?: Yes Plan: Dependent upon 4 L of nasal cannula oxygen at home. Currently she is on BiPAP with settings as ordered. Improving overall from a respiratory status. (10) Restless legs syndrome Is this a current diagnosis for this admission?: Yes Plan: I have ordered her ropinirole to be restarted. - Time Time Spent: 50 to 70 Minutes Medications reviewed and adjusted accordingly: Yes - Inpatient Certification Based on my medical assessment, after consideration of the patient's comorbidities, presenting symptoms, or acuity I expect that the services needed warrant INPATIENT care.: Yes I certify that my determination is in accordance with my understanding of Medicare's requirements for reasonable and necessary INPATIENT services [42 CFR 412.3e].: Yes Medical Necessity: Need for Nebulizer Therapy and Monitoring of Response, Need for IV Antibiotics, Risk of Complication if Not Cared For in Hospital
[2018-05-17 04:59] LABS: ABSOLUTE LYMPHOCYTES# (MANUAL) 0.2 10^3/uL (0.5-4.7); ABSOLUTE MONOCYTES # (MANUAL) 0.2 10^3/uL (0.1-1.4); ABSOLUTE NEUTROPHILS# (MANUAL) 16.8 10^3/uL (1.7-8.2); BAND NEUTROPHILS % (MANUAL) 9 % (3-5); BASOPHILS % (MANUAL) 0 % (0-2); EOSINOPHILS % (MANUAL) 0 % (0-6); LYMPHOCYTES % (MANUAL) 1 % (13-45); MONOCYTES % (MANUAL) 1 % (3-13); SEGMENTED NEUTROPHILS % (MAN) 89 % (42-78); TOTAL CELLS COUNTED 100
[2018-05-17 05:13] LABS: ANISOCYTOSIS 1+; HYPOCHROMASIA 1+; SPHEROCYTES 1+; STOMATOCYTES SLIGHT
[2018-05-17 05:14] LABS: PLATELET COMMENT DECREASED
[2018-05-17] MEDS: ACETAMINOPHEN 325 MG TABLET PO PRN ×2 (05:19→16:19)
[2018-05-17 05:26] LABS: PLATELET COUNT 94 10^3/uL (150-450)
[2018-05-17] MEDS: HEPARIN SOD (PORCINE) 5,000 UNIT/ML 1 ML SYRINGE SUBCUT SCH ×3 (06:32→21:38)
[2018-05-17] MEDS: METHYLPREDNISOLONE INJ 125 MG/2 ML SDV IV SCH ×3 (06:34→21:37)
[2018-05-17 06:40] LABS: APPEARANCE,URINE CLOUDY; BILIRUBIN,URINE NEGATIVE (NEGATIVE); COLOR,URINE YELLOW; GLUCOSE, URINE NEGATIVE (NEGATIVE); KETONES,URINE NEGATIVE (NEGATIVE); LEUKOCYTE ESTERASE,URINE NEGATIVE (NEGATIVE); NITRITE,URINE NEGATIVE (NEGATIVE); PROTEIN,URINE NEGATIVE (NEGATIVE); URINE SPECIFIC GRAVITY 1.021; UROBILINOGEN,URINE NEGATIVE mg/dL (<2.0)
[2018-05-17] MEDS: FAMOTIDINE INJ/PF 20 MG/2 ML SDV IV SCH ×2 (10:55→21:38)
[2018-05-17] MEDS: GUAIFENESIN 600 MG TABLET.SA PO SCH ×2 (10:55→21:38)
[2018-05-17] MEDS: CEFEPIME 2 GM/D5W RTU 2 GM/50 ML RTUPB IV SCH ×2 (10:55→21:39)
[2018-05-17] MEDS: IPRATROPIUM/ALBUTEROL 0.5-2.5 MG/3 ML AMPUL NEB PRN (11:35)
[2018-05-17] MEDS: RINGERS SOLUTION,LACTATED 1,000 ML IV PRN (12:23)
[2018-05-17] MEDS: LEVALBUTEROL HCL NEB 0.63 MG/3 ML AMPUL NEB PRN (16:10)
[2018-05-17] MEDS ORDERED: MORPHINE SULFATE PO PRN (17:55)
[2018-05-17] MEDS ORDERED: ALBUTEROL SULFATE HFA (90 MCG/PUFF) 8 GM MDI (1 MDI/ER DISP) IH SCH (18:00)
[2018-05-17] MEDS ORDERED: CYANOCOBALAMIN (VITAMIN B-12) INJ 1000 MCG/1 ML VIAL IM SCH (18:00)
[2018-05-17] MEDS: VANCOMYCIN HCL 1,000 MG in DEXTROSE 5%-WATER 250 ML IV SCH (20:23)
[2018-05-17] MEDS: BUDESONIDE/FORMOTEROL 160-4.5 MCG 60 PUFF/6 GM MDI IH SCH (21:38)
[2018-05-17] MEDS: ROPINIROLE HCL 1 MG TABLET PO SCH (21:38)
[2018-05-17] MEDS ORDERED: (PENDING PHARMACY ID) (Ropinirole Hcl [Requip] 1 MG) PO SCH (22:00)
[2018-05-17] MEDS ORDERED: ROPINIROLE HCL 1 MG TABLET PO SCH (22:00)
[2018-05-17] MEDS: LEVOFLOXACIN 750 MG/D5W RTU 750 MG/150 ML RTUPB IV SCH (23:06)
[2018-05-18] MEDS: RINGERS SOLUTION,LACTATED 1,000 ML IV PRN ×3 (00:21→18:19)
[2018-05-18] MEDS: IPRATROPIUM/ALBUTEROL 0.5-2.5 MG/3 ML AMPUL NEB PRN ×3 (03:32→19:52)
[2018-05-18] MEDS: VANCOMYCIN HCL 1,000 MG in DEXTROSE 5%-WATER 250 ML IV SCH ×2 (05:20→17:25)
[2018-05-18] MEDS: METHYLPREDNISOLONE INJ 125 MG/2 ML SDV IV SCH ×3 (05:20→21:38)
[2018-05-18] MEDS: HEPARIN SOD (PORCINE) 5,000 UNIT/ML 1 ML SYRINGE SUBCUT SCH ×3 (05:21→21:39)
[2018-05-18] MEDS: ACETAMINOPHEN 325 MG TABLET PO PRN ×3 (05:21→18:23)
[2018-05-18] MEDS: LANSOPRAZOLE 15 MG TAB.RAP.DR PO SCH (05:21)
[2018-05-18 06:13] LABS: HEMATOCRIT 29.3 % (36.0-47.0); MEAN CORPUSCULAR HEMOGLOBIN 31.4 pg (27.0-33.4); MEAN CORPUSCULAR HGB CONC 34.3 g/dL (32.0-36.0); MEAN CORPUSCULAR VOLUME 92 fl (80-97); PLATELET COUNT 105 10^3/uL (150-450); RED CELL DISTRIBUTION WIDTH 15.6 % (11.5-14.0); WHITE BLOOD COUNT 11.4 10^3/uL (4.0-10.5)
[2018-05-18 06:40] LABS: ANION GAP 10 (5-19); BLOOD UREA NITROGEN 12 mg/dL (7-20); CALCIUM 8.7 mg/dL (8.4-10.2); CARBON DIOXIDE 34 mmol/L (22-30); CHLORIDE 101 mmol/L (98-107); GLUCOSE 113 mg/dL (75-110); POTASSIUM 4.3 mmol/L (3.6-5.0); SODIUM 144.8 mmol/L (137-145)
[2018-05-18] MEDS: LEVALBUTEROL HCL NEB 0.63 MG/3 ML AMPUL NEB PRN ×3 (08:21→23:54)
[2018-05-18] MEDS: MONTELUKAST SODIUM 10 MG TABLET PO SCH (08:34)
[2018-05-18] MEDS: BUDESONIDE/FORMOTEROL 160-4.5 MCG 60 PUFF/6 GM MDI IH SCH ×2 (09:20→21:39)
[2018-05-18] MEDS: ASPIRIN 81 MG TABLET, ENT COATED PO SCH (09:22)
[2018-05-18] MEDS: CEFEPIME 2 GM/D5W RTU 2 GM/50 ML RTUPB IV SCH ×2 (09:23→21:38)
[2018-05-18] MEDS: GUAIFENESIN 600 MG TABLET.SA PO SCH ×2 (09:23→21:38)
[2018-05-18] MEDS: FAMOTIDINE INJ/PF 20 MG/2 ML SDV IV SCH ×2 (09:23→21:38)
[2018-05-18] MEDS: ROFLUMILAST 500 MCG TABLET PO SCH (09:23)
[2018-05-18] MEDS: ATENOLOL 50 MG TABLET PO SCH (09:23)
[2018-05-18] MEDS: ALBUTEROL SULFATE HFA (90 MCG/PUFF) 200 PUFF/8.5 GM MDI IH SCH ×2 (09:27→17:25)
[2018-05-18] MEDS ORDERED: (PENDING PHARMACY ID) (Roflumilast [Daliresp 500 Mcg Tablet] 500 MCG) PO SCH (10:00)
[2018-05-18] MEDS ORDERED: BISOPROLOL FUMARATE PO SCH (10:00)
[2018-05-18] MEDS: CETIRIZINE 5 MG TABLET PO SCH (17:25)
--- NOTE | 2018-05-18 17:41 | PDOC PROGRESS REPORT ---
Subjective Progress Note for:: 05/18/18 Subjective:: Patient was admitted for COPD exacerbation and pneumonia. She was initially BiPAP dependent. Overnight patient has been on and off BiPAP. This morning, patient reports that her breathing is much better from yesterday although she is not yet back on her baseline. No fever or chills. She was switched to nasal cannula and her saturation maintained in low 90s. Reason For Visit: PNEUMONIA, COPD WITH ACUTE EXACERBATION Physical Exam Vital Signs: Temp Pulse Resp BP Pulse Ox 97.6 F 94 24 H 114/66 100 05/18/18 16:12 05/18/18 16:12 05/18/18 16:12 05/18/18 16:12 05/18/18 16:12 Intake & Output 05/17/18 05/18/18 05/19/18 06:59 06:59 06:59 Intake Total 3166 1344 Balance 3166 1344 Weight 154 lb 5.177 oz 154 lb 5.177 oz General appearance: PRESENT: other - Patient does develop mild respiratory distress when ambulating Respiratory exam: PRESENT: decreased breath sounds, wheezes, other Cardiovascular exam: PRESENT: RRR. ABSENT: diastolic murmur, rubs, systolic murmur Pulses: PRESENT: normal dorsalis pedis pul GI/Abdominal exam: PRESENT: normal bowel sounds, soft. ABSENT: distended, guarding, mass, organolmegaly, rebound, tenderness Rectal exam: PRESENT: deferred Neurological exam: PRESENT: alert, oriented to person, oriented to place, oriented to time Skin exam: PRESENT: dry, intact, warm. ABSENT: cyanosis, rash Results Laboratory Results: 05/18/18 05:26 05/18/18 05:26 05/18/18 05/18/18 05:26 05:26 WBC 11.4 H RBC 3.20 L Hgb 10.0 L Hct 29.3 L MCV 92 MCH 31.4 MCHC 34.3 RDW 15.6 H Plt Count 105 L Sodium 144.8 Potassium 4.3 Chloride 101 Carbon Dioxide 34 H Anion Gap 10 BUN 12 Creatinine 0.43 L Est GFR ( Amer) > 60 Est GFR (Non-Af Amer) > 60 Glucose 113 H Calcium 8.7 Impressions: Chest X-Ray 05/16/18 22:04 IMPRESSION: 1. Right basilar airspace opacity concerning for pneumonia and small right pleural effusion. 2. Findings suggest obstructive lung disease. Assessment & Plan - Diagnosis (1) Sepsis Qualifiers: Sepsis type: sepsis due to unspecified organism Qualified Code(s): A41.9 - Sepsis, unspecified organism Is this a current diagnosis for this admission?: Yes Plan: This is likely secondary to community-acquired pneumonia. Blood cultures have grown gram-negative bacilli initially. Sputum culture still pending. Patient is currently on vancomycin, cefepime and Levaquin. We will de-escalate antibiotics pending culture results. (2) Acute respiratory failure with hypoxia and hypercapnia Is this a current diagnosis for this admission?: Yes Plan: Patient has been on and off BiPAP. Was switched to nasal cannula earlier today and has been saturating fine so far. BiPAP as needed. (3) COPD exacerbation Is this a current diagnosis for this admission?: Yes Plan: Continue IV Solu-Medrol and breathing treatments. Continue broad-spectrum antibiotics for now.
[2018-05-18] MEDS: ROPINIROLE HCL 1 MG TABLET PO SCH (21:38)
[2018-05-18] MEDS: LEVOFLOXACIN 750 MG/D5W RTU 750 MG/150 ML RTUPB IV SCH (22:33)
[2018-05-19] MEDS: MORPHINE SULFATE 10 MG/5 ML ORAL SOLUTION UDCUP PO PRN ×3 (01:04→21:27)
[2018-05-19] MEDS: LEVALBUTEROL HCL NEB 0.63 MG/3 ML AMPUL NEB PRN (05:06)
[2018-05-19] MEDS: LANSOPRAZOLE 15 MG TAB.RAP.DR PO SCH (06:02)
[2018-05-19] MEDS: RINGERS SOLUTION,LACTATED 1,000 ML IV PRN (06:02)
[2018-05-19] MEDS: METHYLPREDNISOLONE INJ 125 MG/2 ML SDV IV SCH ×2 (06:02→21:29)
[2018-05-19] MEDS: VANCOMYCIN HCL 1,000 MG in DEXTROSE 5%-WATER 250 ML IV SCH (06:03)
[2018-05-19] MEDS: ACETAMINOPHEN 325 MG TABLET PO PRN (06:06)
[2018-05-19 06:50] LABS: HEMATOCRIT 28.2 % (36.0-47.0); HEMOGLOBIN 9.4 g/dL (12.0-15.5); MEAN CORPUSCULAR HEMOGLOBIN 30.9 pg (27.0-33.4); MEAN CORPUSCULAR HGB CONC 33.3 g/dL (32.0-36.0); MEAN CORPUSCULAR VOLUME 93 fl (80-97); PLATELET COUNT 115 10^3/uL (150-450); RED BLOOD COUNT 3.04 10^6/uL (3.72-5.28); RED CELL DISTRIBUTION WIDTH 15.6 % (11.5-14.0); WHITE BLOOD COUNT 6.4 10^3/uL (4.0-10.5)
[2018-05-19 07:06] LABS: ANION GAP 7 (5-19); BLOOD UREA NITROGEN 13 mg/dL (7-20); CALCIUM 8.5 mg/dL (8.4-10.2); CARBON DIOXIDE 34 mmol/L (22-30); CHLORIDE 103 mmol/L (98-107); GLUCOSE 123 mg/dL (75-110); POTASSIUM 4.1 mmol/L (3.6-5.0); SODIUM 143.8 mmol/L (137-145)
[2018-05-19 07:11] LABS: VANCOMYCIN,TROUGH 7.4 ug/mL (5.0-20.0)
[2018-05-19] MEDS: IPRATROPIUM/ALBUTEROL 0.5-2.5 MG/3 ML AMPUL NEB PRN (08:17)
[2018-05-19] MEDS: FAMOTIDINE INJ/PF 20 MG/2 ML SDV IV SCH ×2 (09:32→21:28)
[2018-05-19] MEDS: HEPARIN SOD (PORCINE) 5,000 UNIT/ML 1 ML SYRINGE SUBCUT SCH ×3 (09:33→21:39)
[2018-05-19] MEDS: MONTELUKAST SODIUM 10 MG TABLET PO SCH (09:34)
[2018-05-19] MEDS: ALBUTEROL SULFATE HFA (90 MCG/PUFF) 200 PUFF/8.5 GM MDI IH SCH ×2 (09:34→17:07)
[2018-05-19] MEDS: ROFLUMILAST 500 MCG TABLET PO SCH (09:34)
[2018-05-19] MEDS: BUDESONIDE/FORMOTEROL 160-4.5 MCG 60 PUFF/6 GM MDI IH SCH ×2 (09:34→21:28)
[2018-05-19] MEDS: ASPIRIN 81 MG TABLET, ENT COATED PO SCH (09:35)
[2018-05-19] MEDS: CEFEPIME 2 GM/D5W RTU 2 GM/50 ML RTUPB IV SCH ×2 (09:35→21:27)
[2018-05-19] MEDS: GUAIFENESIN 600 MG TABLET.SA PO SCH ×2 (09:35→21:28)
[2018-05-19] MEDS: ATENOLOL 50 MG TABLET PO SCH (09:36)
[2018-05-19] MEDS: IPRATROPIUM/ALBUTEROL 0.5-2.5 MG/3 ML AMPUL NEB SCH ×3 (12:27→20:36)
[2018-05-19] MEDS ORDERED: HYDROCODONE/ACETAMINOPHEN 5-325 MG TABLET PO ONE (15:00)
--- NOTE | 2018-05-19 15:07 | PDOC PROGRESS REPORT ---
Subjective Progress Note for:: 05/19/18 Subjective:: Patient was admitted for COPD exacerbation and pneumonia. She was initially BiPAP dependent. She has been saturating fine on nasal cannula. This morning, she says that in terms of her breathing, she is close to her baseline. No fever or chills. She is tolerating diet well. Reason For Visit: PNEUMONIA, COPD WITH ACUTE EXACERBATION Physical Exam Vital Signs: Temp Pulse Resp BP Pulse Ox 97.6 F 93 20 133/97 H 93 05/19/18 10:56 05/19/18 14:00 05/19/18 12:27 05/19/18 10:56 05/19/18 12:27 Intake & Output 05/18/18 05/19/18 05/20/18 06:59 06:59 06:59 Intake Total 3166 4574 1225 Balance 3166 4574 1225 Weight 154 lb 5.177 oz 162 lb 11.218 oz General appearance: PRESENT: no acute distress Head exam: PRESENT: atraumatic Eye exam: PRESENT: conjunctiva pink, EOMI, PERRLA. ABSENT: scleral icterus Neck exam: ABSENT: carotid bruit, JVD, lymphadenopathy, thyromegaly Respiratory exam: PRESENT: wheezes - Mild occasional wheezing bilaterally Cardiovascular exam: PRESENT: RRR. ABSENT: diastolic murmur, rubs, systolic murmur Pulses: PRESENT: normal dorsalis pedis pul Vascular exam: PRESENT: normal capillary refill GI/Abdominal exam: PRESENT: normal bowel sounds, soft. ABSENT: distended, guarding, mass, organolmegaly, rebound, tenderness Rectal exam: PRESENT: deferred Extremities exam: PRESENT: +1 edema Musculoskeletal exam: PRESENT: full ROM Neurological exam: PRESENT: alert, oriented to person, oriented to place, oriented to time Psychiatric exam: PRESENT: appropriate affect, normal mood. ABSENT: homicidal ideation, suicidal ideation Skin exam: PRESENT: dry, intact, warm. ABSENT: cyanosis, rash Results Laboratory Results: 05/19/18 06:05 05/19/18 06:05 05/19/18 05/19/18 06:05 06:05 WBC 6.4 RBC 3.04 L Hgb 9.4 L Hct 28.2 L MCV 93 MCH 30.9 MCHC 33.3 RDW 15.6 H Plt Count 115 L Sodium 143.8 Potassium 4.1 Chloride 103 Carbon Dioxide 34 H Anion Gap 7 BUN 13 Creatinine 0.44 L Est GFR ( Amer) > 60 Est GFR (Non-Af Amer) > 60 Glucose 123 H Calcium 8.5 Impressions: Chest X-Ray 05/16/18 22:04 IMPRESSION: 1. Right basilar airspace opacity concerning for pneumonia and small right pleural effusion. 2. Findings suggest obstructive lung disease. Assessment & Plan - Diagnosis (1) Sepsis Qualifiers: Sepsis type: Pseudomonas Qualified Code(s): A41.52 - Sepsis due to Pseudomonas Is this a current diagnosis for this admission?: Yes Plan: Secondary to community-acquired pneumonia. Blood cultures grew pseudomonas aeruginosa 2/2 bottles. Sputum cultures also grew gram-negative bacilli. Patient is currently on vancomycin, cefepime and Levaquin. Discontinue vancomycin. Continue cefepime and Levaquin for now. (2) Acute respiratory failure with hypoxia and hypercapnia Is this a current diagnosis for this admission?: Yes (3) COPD exacerbation Is this a current diagnosis for this admission?: Yes Plan: Decrease Solu-Medrol to 40 mg IV every 12. Continue cefepime and Levaquin. - Time Time Spent with patient: 25-34 minutes
[2018-05-19] MEDS: CETIRIZINE 5 MG TABLET PO SCH (17:07)
[2018-05-19] MEDS: ROPINIROLE HCL 1 MG TABLET PO SCH (21:28)
[2018-05-19] MEDS: METHYLPREDNISOLONE INJ 40 MG/1 ML SDV IV SCH (21:28)
[2018-05-19] MEDS ORDERED: METHYLPREDNISOLONE INJ 125 MG/2 ML SDV IV SCH (22:00)
[2018-05-19] MEDS ORDERED: LEVOFLOXACIN 750 MG TABLET PO SCH (22:00)
[2018-05-20] MEDS: LEVALBUTEROL HCL NEB 0.63 MG/3 ML AMPUL NEB PRN ×2 (00:10→04:48)
[2018-05-20] MEDS: HEPARIN SOD (PORCINE) 5,000 UNIT/ML 1 ML SYRINGE SUBCUT SCH ×3 (05:32→21:07)
[2018-05-20] MEDS: LANSOPRAZOLE 15 MG TAB.RAP.DR PO SCH (05:33)
[2018-05-20 05:50] LABS: HEMATOCRIT 29.1 % (36.0-47.0); HEMOGLOBIN 9.8 g/dL (12.0-15.5); MEAN CORPUSCULAR HGB CONC 33.5 g/dL (32.0-36.0); MEAN CORPUSCULAR VOLUME 93 fl (80-97); PLATELET COUNT 124 10^3/uL (150-450); RED BLOOD COUNT 3.14 10^6/uL (3.72-5.28); RED CELL DISTRIBUTION WIDTH 15.6 % (11.5-14.0); WHITE BLOOD COUNT 7.6 10^3/uL (4.0-10.5)
[2018-05-20 06:05] LABS: ANION GAP 7 (5-19); BLOOD UREA NITROGEN 15 mg/dL (7-20); CALCIUM 8.4 mg/dL (8.4-10.2); CARBON DIOXIDE 38 mmol/L (22-30); CHLORIDE 100 mmol/L (98-107); GLUCOSE 125 mg/dL (75-110); POTASSIUM 4.1 mmol/L (3.6-5.0)
[2018-05-20] MEDS: IPRATROPIUM/ALBUTEROL 0.5-2.5 MG/3 ML AMPUL NEB SCH ×4 (08:38→20:06)
[2018-05-20] MEDS: CEFEPIME 2 GM/D5W RTU 2 GM/50 ML RTUPB IV SCH (09:21)
[2018-05-20] MEDS: ATENOLOL 50 MG TABLET PO SCH (09:21)
[2018-05-20] MEDS: METHYLPREDNISOLONE INJ 40 MG/1 ML SDV IV SCH (09:21)
[2018-05-20] MEDS: ROFLUMILAST 500 MCG TABLET PO SCH (09:21)
[2018-05-20] MEDS: BUDESONIDE/FORMOTEROL 160-4.5 MCG 60 PUFF/6 GM MDI IH SCH ×2 (09:21→21:05)
[2018-05-20] MEDS: ASPIRIN 81 MG TABLET, ENT COATED PO SCH (09:22)
[2018-05-20] MEDS: GUAIFENESIN 600 MG TABLET.SA PO SCH ×2 (09:22→21:06)
[2018-05-20] MEDS: ALBUTEROL SULFATE HFA (90 MCG/PUFF) 200 PUFF/8.5 GM MDI IH SCH ×2 (09:24→18:16)
[2018-05-20] MEDS: MONTELUKAST SODIUM 10 MG TABLET PO SCH (09:24)
--- NOTE | 2018-05-20 09:27 | Progress Note ---
Provider Note Provider Note: ID Consult Note Asked to review patient's chart by Pharmacy. Pt not seen or examined. Ms. Cedillo is a 57 year old woman with PMH including COPD and chronic respiratory failure on home oxygen who was admitted with sepsis secondary to pneumonia from Pseudomonas aeruginosa with bacteremia. She was empirically on vancomycin, cefepime and levofloxacin. With growth of Pseudomonas aeruginosa from blood and sputum, vancomycin was appropriately discontinued. Pt has been improving. Susceptibility results have become available, showing no resistance to antipseudomonal beta lactams, aminoglycosides, or fluoroquinolones. Benefit to combination antipseudomonal therapy is generally appreciated to be in the setting of empiric therapy, particularly in very ill patients, until susceptibility results are available to allow de-escalation to monotherapy. While the patient is hospitalized, treatment could continue with cefepime alone. When she is ready for discharge home, treatment could be completed with an oral fluoroquinolone. There are some studies to suggest that ciprofloxacin have better antipseudomonal activity than levofloxacin and is narrower in spectrum. The duration of therapy is typically in the range of 5-7 days for CAP. For bacteremia with Gram negative rods, variably including or excluding Pseudomonas , the duration of therapy has been in the range of 7-14 days and examined in several retrospective studies in the literature, with most concluding that shorter durations are equivalent to longer durations. Recommend treating the patient for 10 days in total, with cefepime IV inpatient and then PO ciprofloxacin 750 mg BID when she is ready for discharge home. Please ensure that patient is aware of the need to avoid concurrent use of polyvalent cation containing medications or products (e.g. Mag-Ox, ferrous sulfate, multivitamin with minerals, zinc supplements, Tums, Maalox, Mylanta, etc) while on ciprofloxacin since these medications/products can chelate fluoroquinolones reducing exposure and potentially leading to subtherapeutic levels, resistance, treatment failure. Romulo Suazo MD [facility], 1928–1983 Infectious Diseases pager [phone]
[2018-05-20] MEDS: MORPHINE SULFATE 10 MG/5 ML ORAL SOLUTION UDCUP PO PRN ×2 (09:38→21:06)
[2018-05-20] MEDS: ACETAMINOPHEN 325 MG TABLET PO PRN (12:47)
[2018-05-20] MEDS: HYDROCODONE/ACETAMINOPHEN 5-325 MG TABLET PO PRN (15:36)
--- NOTE | 2018-05-20 16:43 | PDOC PROGRESS REPORT ---
Subjective Progress Note for:: 05/20/18 Subjective:: Patient was admitted for COPD exacerbation and pneumonia. She was initially BiPAP dependent. She has been saturating fine on nasal cannula. She says she she is a little bit short of breath. She is minimally nonproductive cough. She is tolerating diet well. No fever or chills. Reason For Visit: PNEUMONIA, COPD WITH ACUTE EXACERBATION Physical Exam Vital Signs: Temp Pulse Resp BP Pulse Ox 98.2 F 100 20 127/74 H 98 05/20/18 15:10 05/20/18 15:10 05/20/18 15:10 05/20/18 15:10 05/20/18 15:10 Intake & Output 05/19/18 05/20/18 05/21/18 06:59 06:59 06:59 Intake Total 4574 1747 829 Balance 4574 1747 829 Weight 162 lb 11.218 oz 160 lb 14.999 oz General appearance: PRESENT: no acute distress, well-developed, well-nourished Head exam: PRESENT: atraumatic, normocephalic Eye exam: PRESENT: conjunctiva pink, EOMI, PERRLA. ABSENT: scleral icterus Neck exam: ABSENT: carotid bruit, JVD, lymphadenopathy, thyromegaly Respiratory exam: PRESENT: wheezes, other - Occasional wheezes on the mid to base lung malik. Cardiovascular exam: PRESENT: RRR. ABSENT: diastolic murmur, rubs, systolic murmur Pulses: PRESENT: normal dorsalis pedis pul GI/Abdominal exam: PRESENT: normal bowel sounds, soft. ABSENT: distended, guarding, mass, organolmegaly, rebound, tenderness Rectal exam: PRESENT: deferred Extremities exam: PRESENT: full ROM. ABSENT: calf tenderness, clubbing, pedal edema Neurological exam: PRESENT: alert, awake, oriented to person, oriented to place , oriented to time, oriented to situation, CN II-XII grossly intact. ABSENT: motor sensory deficit Results Laboratory Results: 05/20/18 05:22 05/20/18 05:22 05/20/18 05/20/18 05:22 05:22 WBC 7.6 RBC 3.14 L Hgb 9.8 L Hct 29.1 L MCV 93 MCH 31.0 MCHC 33.5 RDW 15.6 H Plt Count 124 L Sodium 145.0 Potassium 4.1 Chloride 100 Carbon Dioxide 38 H Anion Gap 7 BUN 15 Creatinine 0.51 L Est GFR ( Amer) > 60 Est GFR (Non-Af Amer) > 60 Glucose 125 H Calcium 8.4 05/18/18 08:30 Sputum Gram Stain - Final 05/18/18 08:30 Sputum Sputum Culture - Final Pseudomonas Aeruginosa Normal Marva Impressions: Chest X-Ray 05/16/18 22:04 IMPRESSION: 1. Right basilar airspace opacity concerning for pneumonia and small right pleural effusion. 2. Findings suggest obstructive lung disease. Assessment & Plan - Diagnosis (1) Sepsis Qualifiers: Sepsis type: Pseudomonas Qualified Code(s): A41.52 - Sepsis due to Pseudomonas Is this a current diagnosis for this admission?: Yes Plan: Secondary to community-acquired pneumonia. Blood cultures grew pseudomonas aeruginosa 2/2 bottles. Sputum cultures also grew the same. Noted ID recommendations. Vancomycin has been discontinued yesterday. We will discontinue Levaquin and will continue IV Cipro and cefepime. Plan to discharge on ciprofloxacin. (2) Acute respiratory failure with hypoxia and hypercapnia Is this a current diagnosis for this admission?: Yes Plan: Patient has been saturating well and tolerating oxygen requirement via nasal cannula. (3) COPD exacerbation Is this a current diagnosis for this admission?: Yes Plan: Discontinue Solu-Medrol. Will switch to prednisone p.o. - Time Time Spent with patient: 25-34 minutes
[2018-05-20] MEDS: PREDNISONE 20 MG TABLET PO SCH (18:14)
[2018-05-20] MEDS: CETIRIZINE 5 MG TABLET PO SCH (18:15)
[2018-05-20] MEDS: CEFEPIME 1 GM/D5W RTU 1 GM/50 ML RTUPB IV SCH (18:15)
[2018-05-20] MEDS: ROPINIROLE HCL 1 MG TABLET PO SCH (21:06)
[2018-05-21] MEDS: CEFEPIME 1 GM/D5W RTU 1 GM/50 ML RTUPB IV SCH ×3 (02:25→18:44)
[2018-05-21] MEDS: LEVALBUTEROL HCL NEB 0.63 MG/3 ML AMPUL NEB PRN (02:33)
[2018-05-21] MEDS: LANSOPRAZOLE 15 MG TAB.RAP.DR PO SCH (05:34)
[2018-05-21] MEDS: HEPARIN SOD (PORCINE) 5,000 UNIT/ML 1 ML SYRINGE SUBCUT SCH ×3 (05:34→21:33)
[2018-05-21] MEDS: MONTELUKAST SODIUM 10 MG TABLET PO SCH (09:25)
[2018-05-21] MEDS: GUAIFENESIN 600 MG TABLET.SA PO SCH ×2 (09:25→21:25)
[2018-05-21] MEDS: PREDNISONE 20 MG TABLET PO SCH ×2 (09:25→18:44)
[2018-05-21] MEDS: ASPIRIN 81 MG TABLET, ENT COATED PO SCH (09:26)
[2018-05-21] MEDS: ROFLUMILAST 500 MCG TABLET PO SCH (09:26)
[2018-05-21] MEDS: ATENOLOL 50 MG TABLET PO SCH (09:26)
[2018-05-21] MEDS: BUDESONIDE/FORMOTEROL 160-4.5 MCG 60 PUFF/6 GM MDI IH SCH ×2 (09:27→21:25)
[2018-05-21] MEDS: ALBUTEROL SULFATE HFA (90 MCG/PUFF) 200 PUFF/8.5 GM MDI IH SCH ×2 (09:28→18:45)
[2018-05-21] MEDS: ACETAMINOPHEN 325 MG TABLET PO PRN (09:31)
[2018-05-21] MEDS: IPRATROPIUM/ALBUTEROL 0.5-2.5 MG/3 ML AMPUL NEB SCH ×4 (09:36→19:48)
[2018-05-21] MEDS: MORPHINE SULFATE 10 MG/5 ML ORAL SOLUTION UDCUP PO PRN ×2 (09:36→21:26)
--- NOTE | 2018-05-21 11:04 | PDOC PROGRESS REPORT ---
Subjective Progress Note for:: 05/21/18 Subjective:: Patient was admitted for COPD exacerbation and pneumonia. She was initially BiPAP dependent. She has been saturating fine on nasal cannula. She says she she is still a little bit short of breath this morning and not back yet on her baseline. She has minimally nonproductive cough. She is tolerating diet well. No fever or chills. Reason For Visit: PNEUMONIA, COPD WITH ACUTE EXACERBATION Physical Exam Vital Signs: Temp Pulse Resp BP Pulse Ox 97.7 F 113 H 18 121/72 97 05/21/18 07:24 05/21/18 09:36 05/21/18 09:36 05/21/18 07:24 05/21/18 09:36 Intake & Output 05/20/18 05/21/18 05/22/18 06:59 06:59 06:59 Intake Total 1747 2108 Balance 1747 2108 Weight 160 lb 14.999 oz 164 lb 10.965 oz General appearance: PRESENT: no acute distress, well-developed, well-nourished Head exam: PRESENT: atraumatic, normocephalic Eye exam: PRESENT: conjunctiva pink, EOMI, PERRLA. ABSENT: scleral icterus Neck exam: ABSENT: carotid bruit, JVD, lymphadenopathy, thyromegaly Respiratory exam: PRESENT: rhonchi, wheezes Cardiovascular exam: PRESENT: tachycardia Vascular exam: PRESENT: normal capillary refill GI/Abdominal exam: PRESENT: normal bowel sounds, soft. ABSENT: distended, guarding, mass, organolmegaly, rebound, tenderness Rectal exam: PRESENT: deferred Extremities exam: PRESENT: +1 edema Neurological exam: PRESENT: alert, awake, oriented to person, oriented to place , oriented to time, oriented to situation, CN II-XII grossly intact. ABSENT: motor sensory deficit Psychiatric exam: PRESENT: appropriate affect, normal mood. ABSENT: homicidal ideation, suicidal ideation Results Laboratory Results: 05/20/18 05:22 05/20/18 05:22 05/18/18 08:30 Sputum Gram Stain - Final 05/18/18 08:30 Sputum Sputum Culture - Final Pseudomonas Aeruginosa Normal Marva Impressions: Chest X-Ray 05/16/18 22:04 IMPRESSION: 1. Right basilar airspace opacity concerning for pneumonia and small right pleural effusion. 2. Findings suggest obstructive lung disease. Assessment & Plan - Diagnosis (1) Sepsis Qualifiers: Sepsis type: Pseudomonas Qualified Code(s): A41.52 - Sepsis due to Pseudomonas Is this a current diagnosis for this admission?: Yes Plan: Secondary to community-acquired pneumonia. Blood cultures grew pseudomonas aeruginosa 2/2 bottles. Sputum cultures also grew the same. Noted ID recommendations. Vancomycin and levaquin have been discontinued. Continue cefepime. Plan to discharge on ciprofloxacin in 1-2 days. (2) Acute respiratory failure with hypoxia and hypercapnia Is this a current diagnosis for this admission?: Yes Plan: Patient has been saturating well and tolerating oxygen requirement via nasal cannula. (3) COPD exacerbation Is this a current diagnosis for this admission?: Yes Plan: Continue prednisone and breathing treatments. - Time Time Spent with patient: 15-24 minutes
--- NOTE | 2018-05-21 12:17 | RADIOLOGY REPORT (SQ) ---
EXAM DESCRIPTION: CHEST SINGLE VIEW COMPLETED DATE/TIME: 05/21/2018 11:24 am REASON FOR STUDY: follow-up, PNA COMPARISON: 05/16/2018 EXAM PARAMETERS: NUMBER OF VIEWS: One view. TECHNIQUE: Single frontal radiographic view of the chest acquired. RADIATION DOSE: NA LIMITATIONS: None. FINDINGS: LUNGS AND PLEURA: Right lower lobe infiltrate. Minimal right pleural effusion. Cannot ex clude limited right upper lobe infiltrate. MEDIASTINUM AND HILAR STRUCTURES: No masses. Contour normal. HEART AND VASCULAR STRUCTURES: Heart size is borderline. There is no pulmonary edema. BONES: No acute findings. HARDWARE: None in the chest. OTHER: No other significant finding. IMPRESSION: Pneumonia with no significant improvement. Cardiomegaly with no car CHF. TECHNICAL DOCUMENTATION: JOB ID: [id number] [id number]- All Rights Reserved Reading location - IP/workstation name: [email or web address]
[2018-05-21] MEDS: CETIRIZINE 5 MG TABLET PO SCH (18:44)
[2018-05-21] MEDS: ROPINIROLE HCL 1 MG TABLET PO SCH (21:25)
[2018-05-22] MEDS: CEFEPIME 1 GM/D5W RTU 1 GM/50 ML RTUPB IV SCH ×3 (02:38→17:10)
[2018-05-22] MEDS: MORPHINE SULFATE 10 MG/5 ML ORAL SOLUTION UDCUP PO PRN (05:58)
[2018-05-22] MEDS: LANSOPRAZOLE 15 MG TAB.RAP.DR PO SCH (06:00)
[2018-05-22] MEDS: HEPARIN SOD (PORCINE) 5,000 UNIT/ML 1 ML SYRINGE SUBCUT SCH ×3 (06:01→21:00)
[2018-05-22] MEDS: IPRATROPIUM/ALBUTEROL 0.5-2.5 MG/3 ML AMPUL NEB SCH ×4 (07:52→20:16)
[2018-05-22] MEDS: MONTELUKAST SODIUM 10 MG TABLET PO SCH (08:10)
[2018-05-22] MEDS: ACETAMINOPHEN 325 MG TABLET PO PRN (09:08)
[2018-05-22] MEDS: ATENOLOL 50 MG TABLET PO SCH (09:08)
[2018-05-22] MEDS: PREDNISONE 20 MG TABLET PO SCH ×2 (09:09→17:10)
[2018-05-22] MEDS: BUDESONIDE/FORMOTEROL 160-4.5 MCG 60 PUFF/6 GM MDI IH SCH ×2 (09:09→21:00)
[2018-05-22] MEDS: ROFLUMILAST 500 MCG TABLET PO SCH (09:09)
[2018-05-22] MEDS: GUAIFENESIN 600 MG TABLET.SA PO SCH ×2 (09:09→21:00)
[2018-05-22] MEDS: ASPIRIN 81 MG TABLET, ENT COATED PO SCH (09:09)
[2018-05-22] MEDS: ALBUTEROL SULFATE HFA (90 MCG/PUFF) 200 PUFF/8.5 GM MDI IH SCH ×2 (09:10→17:11)
[2018-05-22] MEDS: HYDROCODONE/ACETAMINOPHEN 5-325 MG TABLET PO PRN ×2 (12:39→18:44)
--- NOTE | 2018-05-22 14:41 | PDOC PROGRESS REPORT ---
Subjective Progress Note for:: 05/22/18 Subjective:: Patient was admitted for COPD exacerbation and pneumonia. She was initially BiPAP dependent. She has been saturating fine on nasal cannula. She says she is almost back to her baseline. She has minimally nonproductive cough. She complains of mild headache. She is tolerating diet well. No fever or chills. Reason For Visit: PNEUMONIA, COPD WITH ACUTE EXACERBATION Physical Exam Vital Signs: Temp Pulse Resp BP Pulse Ox 97.8 F 86 16 120/62 96 05/22/18 11:22 05/22/18 11:35 05/22/18 11:35 05/22/18 11:22 05/22/18 11:35 Intake & Output 05/21/18 05/22/18 05/23/18 06:59 06:59 06:59 Intake Total 2108 2519 286 Balance 2108 2519 286 Weight 164 lb 10.965 oz 166 lb 14.239 oz General appearance: PRESENT: no acute distress Head exam: PRESENT: atraumatic Eye exam: PRESENT: conjunctival injection Ear exam: PRESENT: bleeding Neck exam: ABSENT: carotid bruit, JVD, lymphadenopathy, thyromegaly Respiratory exam: PRESENT: clear to auscultation lashell, wheezes - Minimal wheezing on the basis. ABSENT: rales, rhonchi Cardiovascular exam: PRESENT: RRR. ABSENT: diastolic murmur, rubs, systolic murmur Pulses: PRESENT: normal dorsalis pedis pul GI/Abdominal exam: PRESENT: normal bowel sounds, soft. ABSENT: distended, guarding, mass, organolmegaly, rebound, tenderness Rectal exam: PRESENT: deferred Extremities exam: PRESENT: full ROM. ABSENT: calf tenderness, clubbing Neurological exam: PRESENT: alert, awake, oriented to person, oriented to place , oriented to time, oriented to situation, CN II-XII grossly intact. ABSENT: motor sensory deficit Results Laboratory Results: 05/20/18 05:22 05/20/18 05:22 05/21/18 18:40 Lactic Acid 2.4 H Impressions: Chest X-Ray 05/21/18 06:00 IMPRESSION: Pneumonia with no significant improvement. Cardiomegaly with no car CHF. Assessment & Plan - Diagnosis (1) Sepsis Qualifiers: Sepsis type: Pseudomonas Qualified Code(s): A41.52 - Sepsis due to Pseudomonas Is this a current diagnosis for this admission?: Yes Plan: Secondary to community-acquired pneumonia. Blood cultures grew pseudomonas aeruginosa 2/2 bottles. Sputum cultures also grew the same. Noted ID recommendations. Vancomycin and levaquin have been discontinued. Continue cefepime. Plan to discharge on ciprofloxacin tomorrow. (2) Acute respiratory failure with hypoxia and hypercapnia Is this a current diagnosis for this admission?: Yes Plan: Patient has been saturating well and tolerating oxygen requirement via nasal cannula. She uses home O2. (3) COPD exacerbation Is this a current diagnosis for this admission?: Yes Plan: Continue prednisone and breathing treatments. - Time Time Spent with patient: 15-24 minutes
[2018-05-22] MEDS: CETIRIZINE 5 MG TABLET PO SCH (17:10)
[2018-05-22] MEDS ORDERED: NORMAL SALINE 1000 ML 1,000 ML IV PRN (18:09)
[2018-05-22] MEDS: ROPINIROLE HCL 1 MG TABLET PO SCH (21:00)
[2018-05-23] MEDS: CEFEPIME 1 GM/D5W RTU 1 GM/50 ML RTUPB IV SCH ×2 (01:23→09:24)
[2018-05-23] MEDS: LANSOPRAZOLE 15 MG TAB.RAP.DR PO SCH (05:01)
[2018-05-23] MEDS: HEPARIN SOD (PORCINE) 5,000 UNIT/ML 1 ML SYRINGE SUBCUT SCH (05:03)
[2018-05-23] MEDS: LEVALBUTEROL HCL NEB 0.63 MG/3 ML AMPUL NEB PRN (05:03)
[2018-05-23] MEDS: HYDROCODONE/ACETAMINOPHEN 5-325 MG TABLET PO PRN (06:33)
[2018-05-23] MEDS: IPRATROPIUM/ALBUTEROL 0.5-2.5 MG/3 ML AMPUL NEB SCH ×2 (07:47→11:32)
[2018-05-23] MEDS: MONTELUKAST SODIUM 10 MG TABLET PO SCH (08:52)
[2018-05-23] MEDS: BUDESONIDE/FORMOTEROL 160-4.5 MCG 60 PUFF/6 GM MDI IH SCH (09:23)
[2018-05-23] MEDS: GUAIFENESIN 600 MG TABLET.SA PO SCH (09:24)
[2018-05-23] MEDS: ATENOLOL 50 MG TABLET PO SCH (09:24)
[2018-05-23] MEDS: ALBUTEROL SULFATE HFA (90 MCG/PUFF) 200 PUFF/8.5 GM MDI IH SCH (09:24)
[2018-05-23] MEDS: PREDNISONE 20 MG TABLET PO SCH (09:25)
[2018-05-23] MEDS: ROFLUMILAST 500 MCG TABLET PO SCH (09:25)
[2018-05-23] MEDS: ASPIRIN 81 MG TABLET, ENT COATED PO SCH (09:25)
[2018-05-23] MEDS ORDERED: BUTALB/ACETAMINOPHEN/CAFFEINE 1 TAB EACH PO PRN (10:09)
--- NOTE | 2018-05-23 10:50 | PDOC DISCHARGE SUMMARY ---
General - Admit/Disc Date/PCP Admission Date/Primary Care Provider: 05/17/18 01:53 SUDARSHAN HAYS MD Discharge Date: 05/23/18 - Discharge Diagnosis (1) Sepsis Is this a current diagnosis for this admission?: Yes (2) Acute respiratory failure with hypoxia and hypercapnia Is this a current diagnosis for this admission?: Yes (3) COPD exacerbation Is this a current diagnosis for this admission?: Yes (4) Right lower lobe pneumonia Is this a current diagnosis for this admission?: Yes - Additional Information Resuscitation Status: Do Not Intubate Discharge Diet: As Tolerated Discharge Activity: Activity As Tolerated Prescriptions: Butalb/Acetaminophen/Caffeine [Fioricet (50-325-40 mg) Tablet] 1 tab PO Q8HP PRN 3 Days #15 each PRN Reason: Ciprofloxacin HCl [Cipro 750 mg Tablet] 750 mg PO BID 4 Days #8 tablet Ipratropium/Albuterol Sulfate [Duoneb 3 ml Ampul] 3 ml NEB RTQ4 PRN 30 Days #30 vial.neb PRN Reason: Prednisone [Deltasone 20 mg Tablet] 40 mg PO BID 8 Days #20 tablet Tiotropium [place] [Spiriva Handihaler 18 mcg/dose (30 Dose)] 1 cap IH DAILY # 30 capsule Home Medications: Albuterol Sulfate [Proair HFA] 1 puff IH BID 05/17/18 Aspirin [Aspirin EC] 162 mg PO DAILY 05/17/18 Bisoprolol Fumarate [Zebeta 5 mg Tablet] 2.5 tab PO DAILY 05/17/18 Budesonide/Formoterol Fumarate [Symbicort 160-4.5 Mcg Inhaler] 2 puff IH BID Cyanocobalamin (Vitamin B-12) [Vitamin B-12 Inj 1000 Mcg/1 ml Vial] 1,000 mcg IM .MONTHLY 05/17/18 Levocetirizine Dihydrochloride [Xyzal] 5 mg PO QPM 05/17/18 Montelukast Sodium [Singulair 10 mg Tablet] 10 mg PO QAM 05/17/18 Morphine Sulfate [Roxanol] 0.25 ml PO Q6HP PRN 05/17/18 Omeprazole 20 mg PO DAILY 05/17/18 Roflumilast [Daliresp 500 mcg Tablet] 500 mcg PO DAILY 05/17/18 Ropinirole HCl [Requip] 1 mg PO QHS 05/17/18 Butalb/Acetaminophen/Caffeine [Fioricet (50-325-40 mg) Tablet] 1 tab PO Q8HP PRN 3 Days #15 each 05/23/18 Ciprofloxacin HCl [Cipro 750 mg Tablet] 750 mg PO BID 4 Days #8 tablet 05/23/18 Ipratropium/Albuterol Sulfate [Duoneb 3 ml Ampul] 3 ml NEB RTQ4 PRN 30 Days #30 vial.neb 05/23/18 Prednisone [Deltasone 20 mg Tablet] 40 mg PO BID 8 Days #20 tablet 05/23/18 Tiotropium [place] [Spiriva Handihaler 18 mcg/dose (30 Dose)] 1 cap IH DAILY # 30 capsule 05/23/18 History of Present Illness History of Present Illness: TRISTEN KIMBLE is a 57 year old woman with alpha-1 antitrypsin deficiency, chronic hypoxemic hypercapnic respiratory failure and COPD. She uses a trilogy at home, she is on 4 L of nasal cannula oxygen at home. She is admitted to this hospital frequently with exacerbations. She was last admitted in October of this year. Patient states that she, yesterday and possibly the day before, had shortness of breath with rapidly worsening right-sided pleuritic chest pain. She states that she has been coughing up white sputum, has had worsening difficulty breathing over the past day or so.. She denies any fever. EMS reports a O2 saturation of 82% on room air and a PCO2 of 58 en route. Secondary to the symptoms EMS was called and patient was brought to the ER. She is being admitted to the hospitalist service with right lower lobe pneumonia as seen on chest x-ray and consistent with symptoms. She is also having significant wheezing, COPD exacerbation. Hospital Course Hospital Course: Ms. Silver is a 57-year-old female who was initially admitted for right lower lobe pneumonia and COPD exacerbation. Patient was started on broad- spectrum IV antibiotics, breathing treatments and IV steroids. She did have slow but gradual improvement. Blood cultures grew Klebsiella pneumoniae 2/2 bottles. Her sputum culture also grew the same bacteria. Isolates were pansensitive. Patient's antibiotics were de-escalate it. Infectious diseases recommendations were also sought. Patient upon day of discharge was back to her baseline. She was saturating well on her home O2 requirements. She will be sent home on 4 more days of oral ciprofloxacin. She will also be sent home on tapered steroids. Tiotropium will also be added to the patient's home regimen. She also was sent home on a short prescription of Fioricet for her chronic migraine headaches. Physical Exam Vital Signs: Temp Pulse Resp BP Pulse Ox 98.2 F 102 H 20 117/58 L 100 05/23/18 08:08 05/23/18 08:08 05/23/18 08:08 05/23/18 08:08 05/23/18 08:08 Intake & Output 05/22/18 05/23/18 05/24/18 06:59 06:59 06:59 Intake Total 2519 741 50 Output Total 0 Balance 2519 741 50 Weight 166 lb 14.239 oz 169 lb 8.568 oz General appearance: PRESENT: no acute distress, well-developed, well-nourished Eye exam: PRESENT: conjunctiva pink, EOMI, PERRLA. ABSENT: scleral icterus Neck exam: ABSENT: carotid bruit, JVD, lymphadenopathy, thyromegaly Respiratory exam: PRESENT: clear to auscultation lashell, other - very minimal occaisonl wheezes on the base. ABSENT: rales Pulses: PRESENT: normal dorsalis pedis pul GI/Abdominal exam: PRESENT: normal bowel sounds, soft. ABSENT: distended, guarding, mass, organolmegaly, rebound, tenderness Rectal exam: PRESENT: deferred Extremities exam: PRESENT: full ROM. ABSENT: calf tenderness, clubbing Neurological exam: PRESENT: alert, awake, oriented to person, oriented to place , oriented to time, oriented to situation, CN II-XII grossly intact. ABSENT: motor sensory deficit Results Laboratory Results: 05/20/18 05:22 05/20/18 05:22 05/22/18 05/23/18 17:17 04:54 Lactic Acid 2.5 H 1.6 Impressions: Chest X-Ray 05/21/18 06:00 IMPRESSION: Pneumonia with no significant improvement. Cardiomegaly with no car CHF. Qualifiers - * PATIENT BEING DISCHARGED WITH ANY OF THE FOLLOWING DIAGNOSIS: No
[2018-05-23 13:18] VITALS: BP 122/75
== END 2018-05-23 13:45 | disposition home or self-care (01) | DRG 189 ==
LOC: ER 20:40 → EH 05-17 01:53 → 3S 05-17 15:25
PROVIDERS: ADMIT Internal Medicine; ATTEND Internal Medicine
DX: J96.21 Acute and chronic respiratory failure with hypoxia (principal); A41.52 Sepsis due to Pseudomonas; J18.9 Pneumonia, unspecified organism; I50.32 Chronic diastolic (congestive) heart failure; J44.1 Chronic obstructive pulmonary disease with (acute) exacerbation; J96.22 Acute and chronic respiratory failure with hypercapnia; I11.0 Hypertensive heart disease with heart failure; E88.01 Alpha-1-antitrypsin deficiency; Z99.81 Dependence on supplemental oxygen; K21.9 Gastro-esophageal reflux disease without esophagitis; M19.90 Unspecified osteoarthritis, unspecified site; G25.81 Restless legs syndrome
CPT/HCPCS: 36415; 71045; 80048; 80053; 80202; 81001; 82550; 82803; 83605; 83880; 84484; 85025; 85027; 87040; 87070; 87077; 87186; 87205; 93005; 93010; 94640; 94660; 96365; 96368; 99291; J0692; J1644; J1956; J2920; J2930; J3370; J3490; J7030; J7060; J7120; J7512; J7614; J7620; S0028

== ENCOUNTER 2018-08-04 09:09 | Inpatient (IN) | payer MEDICARE ==
--- NOTE | 2018-08-04 09:27 | ER Document Report ---
ED General - General Chief Complaint: Shortness Of Breath Stated Complaint: SHORTNESS OF BREATH Time Seen by Provider: 08/04/18 09:25 Notes: Patient is a 57-year-old female with advanced COPD that presents to the emergency department for chief complaint of shortness of breath and chest pain. Patient is slightly confused at this time, not able to provide good history. Patient's states that she has been progressively having more shortness of breath and complaining of tightness in her chest, and been confused over the last 3-4 days. She is chronically on 4 L by nasal cannula, denies any recent fevers. But she states a few weeks ago she was treated for fluid on her lung, in the right lung, where she is complaining of some pain as well. She denies any fevers, chills, night sweats, nausea, vomiting or abdominal pain. Does admit to having a nonproductive cough. Past Medical History: COPD, end-stage Past Surgical History: Denies major surgical history Social History: Admits to smoking cigarettes daily, denies alcohol or drug use Family History: Reviewed and noncontributory for presenting illness Allergies: Reviewed, see documented allergy list. REVIEW OF SYSTEMS: Unless otherwise stated in this report the patient's positive and negative responses for review of systems for constitutional, eyes, ENT, cardiovascular, respiratory, gastrointestinal, neurological, genitourinary, musculoskeletal, and integumentary systems and related systems to the presenting problem are either as stated in the HPI or were not pertinent or were negative for the symptoms and/or complaints related to the presenting medical problem. PHYSICAL EXAMINATION: Vital signs reviewed, nursing noted reviewed. GENERAL chronically ill-appearing female, and in moderate respiratory distress HEAD: Atraumatic, normocephalic. EYES: Eyes appear normal, extraocular movements intact, sclera anicteric, conjunctiva are normal. ENT: nares patent, oropharynx clear without exudates. Moist mucous membranes. NECK: Normal range of motion, supple without lymphadenopathy LUNGS: Increased work of breathing, diminished lung sounds, with expiratory wheezing noted throughout all lung malik, moderate respiratory distress HEART: Regular rate and rhythm without murmurs ABDOMEN: Soft, nontender, normoactive bowel sounds. No rebound, guarding, or rigidity. No masses appreciated. EXTREMITIES: Nontender, good range of motion, no pitting or edema. NEUROLOGICAL: Patient is somnolent, alert and oriented x3, not oriented to time , no focal neurological deficits. Moves all extremities spontaneously Motor and sensory grossly intact on exam. PSYCH: Normal mood, normal affect. SKIN: Warm, Dry, normal turgor, no rashes or lesions noted on exposed skin TRAVEL OUTSIDE OF THE [place] IN LAST 30 DAYS: No - Related Data Allergies/Adverse Reactions: doxepin [Doxepin] Allergy (Verified 08/04/18 09:12) Shortness of Breath, Swelling etodolac [Etodolac] Allergy (Verified 08/04/18 09:12) loratadine [Loratadine] Allergy (Verified 08/04/18 09:12) Shortness of Breath, Swelling meloxicam [Meloxicam] Allergy (Verified 08/04/18 09:12) Sulfa (Sulfonamide Antibiotics) Allergy (Verified 08/04/18 09:12) Shortness of Breath, Swelling Past Medical History - Social History Smoking Status: Current Every Day Smoker Family History: Hyperlipidemia, Hypertension - Past Medical History Cardiac Medical History: Reports: Hx Congestive Heart Failure - Diastolic, Hx Hypertension Denies: Hx Atrial Fibrillation, Hx DVT, Hx Heart Attack, Hx Hypercholesterolemia, Hx Pulmonary Embolism Pulmonary Medical History: Reports: Hx Asthma, Hx Bronchitis, Hx COPD - home O2 & BIPAP-dependent, Hx Pneumonia Neurological Medical History: Reports: Hx Migraine. Denies: Hx Seizures Endocrine Medical History: Denies: Hx Diabetes Mellitus Type 1, Hx Diabetes Mellitus Type 2, Hx Hyperthyroidism, Hx Hypothyroidism Renal/ Medical History: Denies: Hx End Stage Renal Disease, Hx Peritoneal Dialysis GI Medical History: Reports: Hx Gastroesophageal Reflux Disease. Denies: Hx Cirrhosis, Hx Hepatitis Musculoskeletal Medical History: Reports Hx Arthritis, Reports Hx Muscle Weakness Skin Medical History: Denies Hx Eczema, Denies Hx Psoriasis Psychiatric Medical History: Denies: Hx Depression Traumatic Medical History: Reports: Hx Pneumothorax - x4 R lung, 2010 when the patient had a right lung bx required a chest tube Infectious Medical History: Denies: Hx Hepatitis Past Surgical History: Reports: Hx Gynecologic Surgery, Hx Hysterectomy, Hx Tonsillectomy, Hx Tubal Ligation - Immunizations Hx Diphtheria, Pertussis, Tetanus Vaccination: No Hx Pneumococcal Vaccination: 04/25/09 Physical Exam - Vital signs Vitals: Temp Pulse Resp BP Pulse Ox 98.4 F 93 36 H 111/65 98 08/04/18 09:13 08/04/18 09:13 08/04/18 09:13 08/04/18 09:13 08/04/18 09:13 Course - Re-evaluation Re-evalutation: Patient seen and examined vital signs reviewed. Laboratory data and imaging were ordered as appropriate for the patient's presenting symptoms and complaint, with consideration of any critical or life threatening conditions that may be associated with their obtained history and exam as noted above. Patient was treated with BiPAP, DuoNeb breathing treatments, and IV corticosteroids Results were reviewed when available and demonstrated patient had a markedly elevated PCO2 of 99, her baseline appears to be around 60, concerning for acute exacerbation of COPD, and acute on chronic respiratory failure with hypercapnia which would explain the patient's confusion The patient was re-evaluated and was improved on the BiPAP Evaluation was most consistent with acute on chronic respiratory failure with hypercapnia, and community-acquired pneumonia Results were discussed with the patient at this point after careful consideration I feel that that patient should be admitted to the hospital. This was discussed with the patient that it is in the best interest for their care to be admitted for further evaluation and management. Patient agreed with this plan of care. A call was placed to the admitted physician, Dr. Olmos who graciously accepted the patient onto their service. *Note is created using voice recognition software and may contain spelling, syntax or grammatical errors. Laboratory 08/04/18 08/04/18 08/04/18 09:44 09:44 09:44 WBC 10.4 RBC 4.25 Hgb 13.3 Hct 39.6 MCV 93 MCH 31.2 MCHC 33.5 RDW 16.0 H Plt Count 205 Seg Neutrophils % 82.3 H Lymphocytes % 12.5 L Monocytes % 3.9 Eosinophils % 1.0 Basophils % 0.3 Absolute Neutrophils 8.6 H Absolute Lymphocytes 1.3 Absolute Monocytes 0.4 Absolute Eosinophils 0.1 Absolute Basophils 0.0 Carbonic Acid HCO3/H2CO3 Ratio ABG pH ABG pCO2 ABG pO2 ABG HCO3 ABG Total CO2 ABG O2 Saturation ABG Base Excess VBG pH VBG pCO2 VBG HCO3 VBG Base Excess FiO2 Sodium 140.9 Potassium 4.9 Chloride 90 L Carbon Dioxide 48 H* Anion Gap 3 L BUN 12 Creatinine 0.46 L Est GFR ( Amer) > 60 Est GFR (Non-Af Amer) > 60 Glucose 107 Lactic Acid Calcium 8.9 Total Bilirubin 0.7 Direct Bilirubin 0.2 Neonat Total Bilirubin Not Reportable Neonat Direct Bilirubin Not Reportable Neonat Indirect Bili Not Reportable AST 17 ALT 19 Alkaline Phosphatase 51 Creatine Kinase 21 L CK-MB (CK-2) 2.16 Troponin I < 0.012 NT-Pro-B Natriuret Pep 363 Total Protein 6.6 Albumin 3.9 08/04/18 08/04/18 08/04/18 09:44 09:55 12:00 WBC 14.5 H RBC 3.87 Hgb 12.0 Hct 36.1 MCV 93 MCH 31.0 MCHC 33.3 RDW 15.9 H Plt Count 177 Seg Neutrophils % Not Reportable Lymphocytes % Not Reportable Monocytes % Not Reportable Eosinophils % Not Reportable Basophils % Not Reportable Absolute Neutrophils Not Reportable Absolute Lymphocytes Not Reportable Absolute Monocytes Not Reportable Absolute Eosinophils Not Reportable Absolute Basophils Not Reportable Carbonic Acid 2.99 H HCO3/H2CO3 Ratio 15:1 ABG pH 7.30 L ABG pCO2 99.4 H* ABG pO2 ABG HCO3 47.3 H ABG Total CO2 50.3 H ABG O2 Saturation ABG Base Excess 16.5 VBG pH VBG pCO2 VBG HCO3 VBG Base Excess FiO2 4 L Sodium Potassium Chloride Carbon Dioxide Anion Gap BUN Creatinine Est GFR ( Amer) Est GFR (Non-Af Amer) Glucose Lactic Acid 0.8 Calcium Total Bilirubin Direct Bilirubin Neonat Total Bilirubin Neonat Direct Bilirubin Neonat Indirect Bili AST ALT Alkaline Phosphatase Creatine Kinase CK-MB (CK-2) Troponin I NT-Pro-B Natriuret Pep Total Protein Albumin 08/04/18 12:00 WBC RBC Hgb Hct MCV MCH MCHC RDW Plt Count Seg Neutrophils % Lymphocytes % Monocytes % Eosinophils % Basophils % Absolute Neutrophils Absolute Lymphocytes Absolute Monocytes Absolute Eosinophils Absolute Basophils Carbonic Acid HCO3/H2CO3 Ratio ABG pH ABG pCO2 ABG pO2 ABG HCO3 ABG Total CO2 ABG O2 Saturation ABG Base Excess VBG pH 7.30 VBG pCO2 103.7 H* VBG HCO3 49.6 H VBG Base Excess 18.1 FiO2 Sodium Potassium Chloride Carbon Dioxide Anion Gap BUN Creatinine Est GFR ( Amer) Est GFR (Non-Af Amer) Glucose Lactic Acid Calcium Total Bilirubin Direct Bilirubin Neonat Total Bilirubin Neonat Direct Bilirubin Neonat Indirect Bili AST ALT Alkaline Phosphatase Creatine Kinase CK-MB (CK-2) Troponin I NT-Pro-B Natriuret Pep Total Protein Albumin Chest X-Ray 08/04/18 09:21 IMPRESSION: COPD. NO ACUTE RADIOGRAPHIC FINDING IN THE CHEST. - Vital Signs Vital signs: Temp Pulse Resp BP Pulse Ox 98.4 F 92 20 111/65 96 08/04/18 09:13 08/04/18 14:36 08/04/18 14:36 08/04/18 09:13 08/04/18 14:36 - Laboratory Result Diagrams: 08/04/18 12:00 08/04/18 12:00 Laboratory results interpreted by me: 08/04/18 08/04/18 08/04/18 09:44 09:44 09:55 RDW 16.0 H Seg Neutrophils % 82.3 H Lymphocytes % 12.5 L Absolute Neutrophils 8.6 H Carbonic Acid 2.99 H ABG pH 7.30 L ABG pCO2 99.4 H* ABG HCO3 47.3 H ABG Total CO2 50.3 H Chloride 90 L Carbon Dioxide 48 H* Anion Gap 3 L Creatinine 0.46 L Creatine Kinase 21 L - EKG Interpretation by Me Additional EKG results interpreted by me: 08/04/18 09:26 EKG demonstrates sinus rhythm with a ventricular rate of 90 bpm, normal axis, normal intervals, no evidence of acute ischemia on this EKG, this is compared with prior EKG from 07/17/2018, at that time the patient was in sinus tachycardia , no ST or T wave changes from prior EKG. Critical Care Note - Critical Care Note Total time excluding time spent on procedures (mins): 40 Comments: Critical care time 40 minutes exclusive from separate billable procedures for a patient requiring complex medical decision making, and high potential for clinical deterioration. In a patient with acute on chronic respiratory failure requiring noninvasive positive pressure ventilation. Time spent obtaining history from patient or surrogate, discussions with consultants, development of treatment plan with patient or surrogate, evaluation of patient's response to treatment, examination of patient, ordering and performing treatments and interventions, ordering and review of laboratory studies, re-evaluation of patient's condition, ordering and review of radiographic studies and review of old charts Discharge - Discharge Clinical Impression: Acute and chronic respiratory failure with hypercapnia, Carbon dioxide narcosis Community acquired pneumonia Qualifiers: Laterality: right Lung location: lower lobe of lung Qualified Code(s): J18.1 - Lobar pneumonia, unspecified organism Condition: Stable Disposition: ADMITTED INPATIENT Admitting Provider: Hospitalist - Dr. Olmos Unit Admitted: [facility]
[2018-08-04] MEDS ORDERED: IPRATROPIUM/ALBUTEROL 0.5-2.5 MG/3 ML AMPUL NEB ONE (09:50)
[2018-08-04] MEDS ORDERED: METHYLPREDNISOLONE INJ 125 MG/2 ML SDV IV ONE (09:50)
[2018-08-04 09:58] LABS: ABSOLUTE EOSINOPHILS # (AUTO) 0.1 10^3/uL (0.0-0.6); ABSOLUTE LYMPHOCYTES (AUTO) 1.3 10^3/uL (0.5-4.7); ABSOLUTE MONOCYTES (AUTO) 0.4 10^3/uL (0.1-1.4); ABSOLUTE NEUT (AUTO) 8.6 10^3/uL (1.7-8.2); BASOPHILS % (AUTO) 0.3 % (0-2); HEMATOCRIT 39.6 % (36.0-47.0); HEMOGLOBIN 13.3 g/dL (12.0-15.5); LYMPHOCYTES % (AUTO) 12.5 % (13-45); MEAN CORPUSCULAR HEMOGLOBIN 31.2 pg (27.0-33.4); MEAN CORPUSCULAR HGB CONC 33.5 g/dL (32.0-36.0); MEAN CORPUSCULAR VOLUME 93 fl (80-97); MONOCYTES % (AUTO) 3.9 % (3-13); PLATELET COUNT 205 10^3/uL (150-450); RED BLOOD COUNT 4.25 10^6/uL (3.72-5.28); SEGMENTED NEUTROPHILS % (AUTO) 82.3 % (42-78); TOTAL CELLS COUNTED % (AUTO) 100 %; WHITE BLOOD COUNT 10.4 10^3/uL (4.0-10.5)
[2018-08-04 10:19] LABS: ALANINE AMINOTRANSFERASE 19 U/L (9-52); ALBUMIN 3.9 g/dL (3.5-5.0); ALKALINE PHOSPHATASE 51 U/L (38-126); ASPARTATE AMINO TRANSFERASE 17 U/L (14-36); BILIRUBIN,DIRECT 0.2 mg/dL (0.0-0.4); BILIRUBIN,TOTAL 0.7 mg/dL (0.2-1.3); BLOOD UREA NITROGEN 12 mg/dL (7-20); CALCIUM 8.9 mg/dL (8.4-10.2); CHLORIDE 90 mmol/L (98-107); CREATINE KINASE 21 U/L (30-135); GLUCOSE 107 mg/dL (75-110); POTASSIUM 4.9 mmol/L (3.6-5.0); SODIUM 140.9 mmol/L (137-145); TOTAL PROTEIN 6.6 g/dL (6.3-8.2)
[2018-08-04 10:28] LABS: ARTERIAL BLOOD BASE EXCESS 16.5 mmol/L; ARTERIAL BLOOD H2CO3 2.99 mmol/L (1.05-1.35); ARTERIAL BLOOD HCO3 47.3 mmol/L (20-24); ARTERIAL BLOOD TOTAL CO2 50.3 mmol/L (21-25)
[2018-08-04 10:33] LABS: CARBON DIOXIDE 48 mmol/L (22-30)
[2018-08-04 10:35] LABS: ARTERIAL BLOOD FIO2 4 L; ARTERIAL BLOOD PCO2 99.4 mmHg (35-45)
[2018-08-04] MEDS ORDERED: AZITHROMYCIN INJ 500 MG VIAL IV ONE (10:50)
[2018-08-04] MEDS ORDERED: CEFTRIAXONE INJ 1000 MG VIAL IV ONE (10:51)
--- NOTE | 2018-08-04 10:51 | RADIOLOGY REPORT (SQ) ---
EXAM DESCRIPTION: CHEST SINGLE VIEW COMPLETED DATE/TIME: 08/04/2018 10:13 am REASON FOR STUDY: SOB COMPARISON: 10/31/2017 NUMBER OF VIEWS: One view. TECHNIQUE: Single frontal radiographic view of the chest acquired. LIMITATIONS: None. FINDINGS: LUNGS AND PLEURA: No opacities, masses or pneumothorax. No pleural effusion. Attenuated bl ood vessels and flattened harini-diaphragms. MEDIASTINUM AND HILAR STRUCTURES: No masses. Contour normal. HEART AND VASCULAR STRUCTURES: Heart upper limits normal in size. Normal vasculature. BONES: No acute findings. HARDWARE: None in the chest. OTHER: No other significant finding. IMPRESSION: COPD. NO ACUTE RADIOGRAPHIC FINDING IN THE CHEST. TECHNICAL DOCUMENTATION: JOB ID: [id number] [employer]- All Rights Reserved Reading location - IP/workstation name: [email or web address]
[2018-08-04 10:53] LABS: CREATINE KINASE MB 2.16 ng/mL (<4.55); NT PRO BNP 363 pg/mL (5-900)
[2018-08-04 10:55] LABS: TROPONIN I < 0.012 ng/mL
[2018-08-04 11:01] LABS: ANION GAP 3 (5-19)
[2018-08-04] MEDS ORDERED: ACETAMINOPHEN 325 MG TABLET PO ONE (11:30)
[2018-08-04] MEDS ORDERED: BUTALB/ACETAMINOPHEN/CAFFEINE 1 TAB EACH PO PRN (11:50)
[2018-08-04] MEDS ORDERED: MORPHINE SULFATE 5 MG PO PRN (11:50)
[2018-08-04] MEDS ORDERED: MONTELUKAST SODIUM 10 MG TABLET PO SCH (12:00)
[2018-08-04] MEDS: METHYLPREDNISOLONE INJ 40 MG/1 ML SDV IV SCH ×3 (12:04→23:40)
[2018-08-04 12:17] LABS: VENOUS BLOOD BASE EXCESS 18.1 mmol/L; VENOUS BLOOD HCO3 49.6 mmol/L (20-32); VENOUS BLOOD PH 7.3 (7.30-7.42)
[2018-08-04 12:18] LABS: HEMATOCRIT 36.1 % (36.0-47.0); MEAN CORPUSCULAR HGB CONC 33.3 g/dL (32.0-36.0); MEAN CORPUSCULAR VOLUME 93 fl (80-97); PLATELET COUNT 177 10^3/uL (150-450); RED BLOOD COUNT 3.87 10^6/uL (3.72-5.28); RED CELL DISTRIBUTION WIDTH 15.9 % (11.5-14.0); VENOUS BLOOD PCO2 103.7 mmHg (35-63); WHITE BLOOD COUNT 14.5 10^3/uL (4.0-10.5)
[2018-08-04 12:41] LABS: BLOOD UREA NITROGEN 11 mg/dL (7-20); CALCIUM 8.7 mg/dL (8.4-10.2); CHLORIDE 89 mmol/L (98-107); GLUCOSE 114 mg/dL (75-110); SODIUM 140.7 mmol/L (137-145)
[2018-08-04 12:48] LABS: ABSOLUTE LYMPHOCYTES# (MANUAL) 0.7 10^3/uL (0.5-4.7); ABSOLUTE MONOCYTES # (MANUAL) 0.1 10^3/uL (0.1-1.4); ABSOLUTE NEUTROPHILS# (MANUAL) 13.6 10^3/uL (1.7-8.2); BASOPHILS % (MANUAL) 0 % (0-2); EOSINOPHILS % (MANUAL) 0 % (0-6); LYMPHOCYTES % (MANUAL) 3 % (13-45); MONOCYTES % (MANUAL) 1 % (3-13); SEGMENTED NEUTROPHILS % (MAN) 94 % (42-78); TOTAL CELLS COUNTED 100
[2018-08-04 12:49] LABS: ANISOCYTOSIS SLIGHT; PLATELET COMMENT ADEQUATE; POIKILOCYTOSIS 2+; STOMATOCYTES 2+
[2018-08-04 12:51] LABS: ANION GAP 4 (5-19)
[2018-08-04 12:53] LABS: CARBON DIOXIDE 48 mmol/L (22-30)
[2018-08-04] MEDS ORDERED: LEVOFLOXACIN 750 MG TABLET PO SCH ×2 (13:00→15:00)
--- NOTE | 2018-08-04 13:04 | EKG REPORT ---
SEVERITY:- NORMAL ECG - SINUS RHYTHM : Confirmed by: Anuel Arevalo MD 04-Aug-2018 13:03:57
[2018-08-04] MEDS: BUDESONIDE NEB 0.5 MG/2 ML AMPUL NEB SCH ×2 (14:29→20:27)
[2018-08-04] MEDS: MORPHINE SULFATE 10 MG/ML INJ IV PRN (16:01)
[2018-08-04] MEDS: LEVOFLOXACIN 750 MG TABLET PO SCH (16:01)
[2018-08-04] MEDS: ENOXAPARIN SODIUM INJ 40 MG/0.4 ML DISP.SYRIN SUBCUT SCH (16:02)
--- NOTE | 2018-08-04 16:24 | PDOC H&P ---
History of Present Illness Admission Date/PCP: 08/04/18 11:58 SUDARSHAN HAYS MD Patient complains of: Dyspnea History of Present Illness: ASTER KIMBLE is a 57 year old female who presented to the emergency room with a 5-day history of increasing dyspnea and chest discomfort. She admits that her chest discomfort/pain has been increasingly severe (up to 8/10 on arrival in the ER), nonradiating, tightness in her anterior substernal chest. This episode of pain and dyspnea is not unlike many similar episodes she has had in the past with exacerbations of her COPD. She has not identified any aggravating or ameliorating factors for her dyspnea or chest pain. She does note associated symptoms of a cough productive of only small amounts of whitish sputum as well as episodes of mental confusion and subjective fever and chills. She further admits that she finished taking antibiotics for a "lung infection " 1 day prior to her onset of new symptoms and she was recently treated for a pleural effusion of her right lung. She uses a trilogy machine at home and is on 4 L of oxygen via nasal cannula at all times. She would be admitted to the [facility] for further evaluation and treatment with an aggressive course of IV steroids, aggressive pulmonary toilet and empiric antibiotic therapy. Past Medical History Cardiac Medical History: Reports: Congestive Heart Failure - Diastolic, Hypertension Denies: Atrial Fibrillation, DVT, Myocardial Infarction, Hyperlipidema, Pulmonary Embolism Pulmonary Medical History: Reports: Asthma, Bronchitis, Chronic Obstructive Pulmonary Disease (COPD) - home O2 & BIPAP-dependent, Pneumonia EENT Medical History: Reports: None Neurological Medical History: Reports: Migraine Denies: Seizures Endocrine Medical History: Denies: Diabetes Mellitus Type 1, Diabetes Mellitus Type 2, Hyperthyroidism, Hypothyroidism Renal/ Medical History: Denies: Chronic Kidney Disease, End Stage Renal Disease Malignancy Medical History: Reports: None GI Medical History: Reports: Gastroesophageal Reflux Disease Denies: Cirrhosis, Crohn's Disease, Hepatitis, Peptic Ulcer Disease, Ulcerative Colitis Musculoskeltal Medical History: Reports: Arthritis Denies: Gout Skin Medical History: Denies: Eczema, Psoriasis Psychiatric Medical History: Denies: Bipolar Disorder, Depression, General Anxiety Disorder Traumatic Medical History: Reports: Pneumothorax - x4 R lung, 2010 when the patient had a right lung bx required a chest tube Denies: Gunshot Wound, Stab Wound Hematology: Denies: Hemophilia, Bleeding Tendencies Infectious Medical History: Reports: None Past Surgical History Past Surgical History: Reports: Hysterectomy, Tonsillectomy, Tubal Ligation Social History Information Source: Patient Lives with: Family Smoking Status: Current Every Day Smoker Frequency of Alcohol Use: None Hx Recreational Drug Use: No Drugs: None Hx Prescription Drug Abuse: No - Advance Directive Resuscitation Status: Full Code Family History Family History: Hyperlipidemia, Hypertension Parental Family History Reviewed: Yes Children Family History Reviewed: Yes Sibling(s) Family History Reviewed.: Yes Medication/Allergy Home Medications: Albuterol Sulfate [Proventil Hfa] 1 puff IH Q6HP PRN 08/04/18 Bisoprolol Fumarate [Zebeta 5 mg Tablet] 2.5 mg PO DAILY 08/04/18 Budesonide/Formoterol Fumarate [Symbicort HFA 160-4.5 mcg Inhaler 6 gm] 1 puff IH Q12 08/04/18 Ipratropium/Albuterol Sulfate [Iprat-Albut 0.5-3(2.5) mg/3 ml] 3 ml NEB Q4HP PRN 08/04/18 Levocetirizine Dihydrochloride [Xyzal] 5 mg PO DAILY 08/04/18 Montelukast Sodium [Singulair 10 mg Tablet] 10 mg PO QPM 08/04/18 Ondansetron HCl [Zofran 4 mg Tablet] 4 mg PO DAILYP PRN 08/04/18 Prednisone [Deltasone 10 mg Tablet] 10 mg PO DAILY 08/04/18 Roflumilast [Daliresp 500 mcg Tablet] 500 mcg PO DAILY 08/04/18 Ropinirole HCl [Requip] 0.5 mg PO BID 08/04/18 Tiotropium Sun [Spiriva Handihaler 5 Cap/Kit (18 Mcg/Cap)] 1 puff IH DAILY 08/04/18 Allergies/Adverse Reactions: doxepin [Doxepin] Allergy (Verified 08/04/18 09:12) Shortness of Breath, Swelling etodolac [Etodolac] Allergy (Verified 08/04/18 09:12) loratadine [Loratadine] Allergy (Verified 08/04/18 09:12) Shortness of Breath, Swelling meloxicam [Meloxicam] Allergy (Verified 08/04/18 09:12) Sulfa (Sulfonamide Antibiotics) Allergy (Verified 08/04/18 09:12) Shortness of Breath, Swelling Review of Systems Constitutional: PRESENT: chills - Subjective, fever(s) - Subjective, headache(s) Eyes: ABSENT: visual disturbances, other - Ocular pain Ears: ABSENT: hearing changes, other - Ear pain Nose, Mouth, and Throat: PRESENT: headache(s). ABSENT: mouth pain, sore throat , vertigo Cardiovascular: PRESENT: chest pain, dyspnea on exertion. ABSENT: edema, orthropnea, palpitations Respiratory: PRESENT: cough - Productive only of whitish mucus, dyspnea, sputum - Whitish mucus small amounts. ABSENT: hemoptysis Gastrointestinal: ABSENT: abdominal pain, constipation, diarrhea, dysphagia, nausea, vomiting, other - Dyspepsia Genitourinary: ABSENT: dysuria, hematuria Musculoskeletal: ABSENT: deformity, joint swelling, muscle weakness Integumentary: ABSENT: pruritus, rash Neurological: PRESENT: confusion, tremor(s). ABSENT: abnormal speech, convulsions, dizziness, focal weakness, memory loss, syncope, vertigo Psychiatric: ABSENT: anxiety, depression Endocrine: ABSENT: cold intolerance, heat intolerance, polydipsia, polyphagia, polyuria Hematologic/Lymphatic: ABSENT: easy bleeding, easy bruising Allergic/Immunologic: ABSENT: seasonal rhinorrhea, other - Insect bite allergy Physical Exam Vital Signs: Temp Pulse Resp BP Pulse Ox 98.4 F 92 20 111/65 96 08/04/18 09:13 08/04/18 14:36 08/04/18 14:36 08/04/18 09:13 08/04/18 14:36 General appearance: PRESENT: cooperative, mild distress - Respiratory distress currently on BiPAP, well-developed, well-nourished Head exam: PRESENT: atraumatic, normocephalic Eye exam: PRESENT: EOMI. ABSENT: conjunctival injection, scleral icterus Ear exam: PRESENT: normal external ear exam. ABSENT: bleeding, drainage Mouth exam: PRESENT: moist, tongue midline Neck exam: ABSENT: thyromegaly, tracheal deviation Respiratory exam: PRESENT: accessory muscle use, decreased breath sounds - All lung malik, prolonged expiratory phas - Moderate to severely prolonged expiratory phase, retraction, symmetrical, wheezes - Moderate end expiratory wheezes in all malik, other - Labored breathing noted Cardiovascular exam: PRESENT: RRR. ABSENT: clicks, gallop, rubs Vascular exam: PRESENT: normal capillary refill. ABSENT: pallor GI/Abdominal exam: PRESENT: normal bowel sounds, soft Rectal exam: PRESENT: deferred Extremities exam: ABSENT: joint swelling, pedal edema Musculoskeletal exam: PRESENT: full ROM, normal inspection Neurological exam: PRESENT: alert, awake, oriented to person, oriented to place , oriented to time, oriented to situation. ABSENT: CN II-XII grossly intact, motor sensory deficit Psychiatric exam: PRESENT: appropriate affect, normal mood Skin exam: ABSENT: jaundice, rash, urticaria Results Laboratory Results: 08/04/18 12:00 08/04/18 12:00 08/04/18 08/04/18 08/04/18 12:00 12:00 12:00 WBC 14.5 H RBC 3.87 Hgb 12.0 Hct 36.1 MCV 93 MCH 31.0 MCHC 33.3 RDW 15.9 H Plt Count 177 Seg Neutrophils % Not Reportable Lymphocytes % Not Reportable Monocytes % Not Reportable Eosinophils % Not Reportable Basophils % Not Reportable Absolute Neutrophils Not Reportable Absolute Lymphocytes Not Reportable Absolute Monocytes Not Reportable Absolute Eosinophils Not Reportable Absolute Basophils Not Reportable VBG pH 7.30 VBG pCO2 103.7 H* VBG HCO3 49.6 H VBG Base Excess 18.1 Sodium 140.7 Potassium 5.0 Chloride 89 L Carbon Dioxide 48 H* Anion Gap 4 L BUN 11 Creatinine 0.50 L Est GFR ( Amer) > 60 Est GFR (Non-Af Amer) > 60 Glucose 114 H Calcium 8.7 Magnesium 1.9 Impressions: Chest X-Ray 08/04/18 09:21 IMPRESSION: COPD. NO ACUTE RADIOGRAPHIC FINDING IN THE CHEST. Assessment & Plan - Diagnosis (1) Chest pain Qualifiers: Chest pain type: unspecified Qualified Code(s): R07.9 - Chest pain, unspecified Is this a current diagnosis for this admission?: Yes Plan: Patient has had chest pain of similar nature on numerous occasions however the pain is a central tightness and will be evaluated with serial cardiac enzymes and serial EKGs. Morphine 2 mg IV every hour as needed pain is ordered for control of this chest pain/angina. (2) Acute and chronic respiratory failure with hypercapnia Is this a current diagnosis for this admission?: Yes Plan: Aster has chronic respiratory failure and generally has a PCO2 of 80-90. Her PCO2 today was 99.4 and she had significant evidence of CO2 narcosis when she was first seen in the emergency room. She has improved substantially on BiPAP therapy in the emergency room. She will be continued on BiPAP and supplemental oxygen as needed and will receive aggressive pulmonary toilet as well as IV steroids during her hospital course. (3) COPD exacerbation Is this a current diagnosis for this admission?: Yes Plan: Patient COPD exacerbation will be managed with IV steroids and aggressive pulmonary toilet with empiric antibiotic therapy. Daily laboratory values will be followed with a CBC, BMP and magnesium level. Additionally patient will have a thyroid screening with a TSH if she has not had a recent test, and other evaluations as appropriate. (4) Hypertension Qualifiers: Hypertension type: essential hypertension Qualified Code(s): I10 - Essential (primary) hypertension Is this a current diagnosis for this admission?: Yes Plan: Patient will be continued on her current antihypertensive regiment with the exception of substitution of metoprolol succinate [address] of the 5 mg of bisoprolol which is not available on formulary. - Time Time Spent: Greater than 70 Minutes Medications reviewed and adjusted accordingly: Yes Anticipated discharge: Home
[2018-08-04] MEDS: IPRATROPIUM BROMIDE 0.02% NEB 0.5 MG/2.5 ML AMPUL NEB SCH (16:27)
[2018-08-04] MEDS: LEVALBUTEROL HCL NEB 1.25 MG/3 ML AMPUL NEB SCH (16:27)
[2018-08-04 17:14] LABS: CREATINE KINASE MB 0.75 ng/mL (<4.55)
[2018-08-04 17:27] LABS: TROPONIN I < 0.012 ng/mL
[2018-08-04] MEDS ORDERED: (PENDING PHARMACY ID) (Ropinirole Hcl [Requip] 0.5 MG) PO SCH (18:00)
--- NOTE | 2018-08-04 18:11 | EKG REPORT ---
SEVERITY:- OTHERWISE NORMAL ECG - SINUS TACHYCARDIA : Confirmed by: Anuel Arevalo MD 04-Aug-2018 18:10:43
[2018-08-04] MEDS: MONTELUKAST SODIUM 10 MG TABLET PO SCH (18:13)
[2018-08-04] MEDS: ACETYLCYSTEINE 20% SOLN 800 MG/4 ML VIAL.NEB NEB SCH (18:13)
[2018-08-04] MEDS: ROPINIROLE HCL 1 MG TABLET PO SCH (18:14)
[2018-08-04] MEDS ORDERED: ACETYLCYSTEINE 20% SOLN 800 MG/4 ML VIAL.NEB NEB SCH (20:00)
[2018-08-04] MEDS: ALBUTEROL SULFATE 0.083% NEB 2.5 MG/3 ML AMPUL NEB PRN (20:27)
[2018-08-04] MEDS: ACETAMINOPHEN 325 MG TABLET PO PRN (21:10)
[2018-08-04] MEDS ORDERED: (PENDING PHARMACY ID) (Ropinirole Hcl [Requip] 1 MG) PO SCH (22:00)
[2018-08-04 23:04] LABS: CREATINE KINASE MB 0.92 ng/mL (<4.55)
[2018-08-04 23:10] LABS: TROPONIN I < 0.012 ng/mL
[2018-08-05] MEDS: LEVALBUTEROL HCL NEB 1.25 MG/3 ML AMPUL NEB SCH ×3 (00:09→16:18)
[2018-08-05] MEDS: IPRATROPIUM BROMIDE 0.02% NEB 0.5 MG/2.5 ML AMPUL NEB SCH ×3 (00:09→16:18)
[2018-08-05 05:25] LABS: CREATINE KINASE MB 0.83 ng/mL (<4.55)
[2018-08-05 05:29] LABS: TROPONIN I < 0.012 ng/mL
[2018-08-05] MEDS: ACETAMINOPHEN 325 MG TABLET PO PRN ×2 (06:30→19:31)
--- NOTE | 2018-08-05 07:42 | EKG REPORT ---
SEVERITY:- ABNORMAL ECG - SINUS RHYTHM NEW T INVERSION ANTEROSEPTAL LEAD SINCE 08/04/18 CLINICAL CORRELATION NEEDED. : Confirmed by: Anuel Arevalo MD 05-Aug-2018 07:42:09
--- NOTE | 2018-08-05 07:44 | EKG REPORT ---
SEVERITY:- ABNORMAL ECG - SINUS TACHYCARDIA NEW T INVERSION V2 SINCE EARLIER EKG TODAY : Confirmed by: Anuel Arevalo MD 05-Aug-2018 07:43:30
[2018-08-05] MEDS: ACETYLCYSTEINE 20% SOLN 800 MG/4 ML VIAL.NEB NEB SCH ×2 (08:28→20:40)
[2018-08-05] MEDS: BUDESONIDE NEB 0.5 MG/2 ML AMPUL NEB SCH ×2 (08:28→20:40)
[2018-08-05] MEDS: ROFLUMILAST 500 MCG TABLET PO SCH (09:17)
[2018-08-05] MEDS: ROPINIROLE HCL 1 MG TABLET PO SCH ×2 (09:19→21:03)
[2018-08-05] MEDS: METOPROLOL SUCCINATE 50 MG TAB.SR.24H PO SCH (09:19)
[2018-08-05] MEDS: ENOXAPARIN SODIUM INJ 40 MG/0.4 ML DISP.SYRIN SUBCUT SCH (09:20)
[2018-08-05] MEDS ORDERED: (PENDING PHARMACY ID) (Roflumilast [Daliresp 500 Mcg Tablet] 500 MCG) PO SCH ×2 (10:00)
[2018-08-05] MEDS ORDERED: ASPIRIN 81 MG TABLET, ENT COATED PO SCH (10:00)
[2018-08-05 12:22] LABS: VENOUS BLOOD BASE EXCESS 18.6 mmol/L; VENOUS BLOOD HCO3 48.9 mmol/L (20-32); VENOUS BLOOD PH 7.33 (7.30-7.42)
[2018-08-05 12:23] LABS: HEMOGLOBIN 11.1 g/dL (12.0-15.5); MEAN CORPUSCULAR HEMOGLOBIN 30.8 pg (27.0-33.4); MEAN CORPUSCULAR HGB CONC 33.5 g/dL (32.0-36.0); MEAN CORPUSCULAR VOLUME 92 fl (80-97); PLATELET COUNT 157 10^3/uL (150-450); RED BLOOD COUNT 3.59 10^6/uL (3.72-5.28); RED CELL DISTRIBUTION WIDTH 15.6 % (11.5-14.0)
[2018-08-05 12:24] LABS: VENOUS BLOOD PCO2 94.8 mmHg (35-63)
[2018-08-05 12:42] LABS: BLOOD UREA NITROGEN 14 mg/dL (7-20); CALCIUM 8.8 mg/dL (8.4-10.2); CHLORIDE 87 mmol/L (98-107); GLUCOSE 99 mg/dL (75-110); POTASSIUM 4.6 mmol/L (3.6-5.0); SODIUM 137.8 mmol/L (137-145)
[2018-08-05 12:55] LABS: ANION GAP 6 (5-19)
[2018-08-05 12:56] LABS: CARBON DIOXIDE 45 mmol/L (22-30)
[2018-08-05 12:57] LABS: ABSOLUTE LYMPHOCYTES# (MANUAL) 0.4 10^3/uL (0.5-4.7); ABSOLUTE MONOCYTES # (MANUAL) 0.3 10^3/uL (0.1-1.4); ABSOLUTE NEUTROPHILS# (MANUAL) 7.3 10^3/uL (1.7-8.2); BASOPHILS % (MANUAL) 0 % (0-2); EOSINOPHILS % (MANUAL) 0 % (0-6); LYMPHOCYTES % (MANUAL) 5 % (13-45); MONOCYTES % (MANUAL) 4 % (3-13); SEGMENTED NEUTROPHILS % (MAN) 91 % (42-78); TOTAL CELLS COUNTED 100
[2018-08-05 12:58] LABS: ANISOCYTOSIS SLIGHT; OVALOCYTES SLIGHT; PLATELET COMMENT ADEQUATE; POIKILOCYTOSIS 2+; STOMATOCYTES 2+
--- NOTE | 2018-08-05 15:13 | PDOC PROGRESS REPORT ---
Subjective Progress Note for:: 08/05/18 Subjective:: ASTER KIMBLE is a 57 year old female who presented to the emergency room with a 5-day history of increasing dyspnea and chest discomfort. She admits that her chest discomfort/pain has been increasingly severe (up to 8/10 on arrival in the ER), nonradiating, tightness in her anterior substernal chest. This episode of pain and dyspnea is not unlike many similar episodes she has had in the past with exacerbations of her COPD. She has not identified any aggravating or ameliorating factors for her dyspnea or chest pain. She does note associated symptoms of a cough productive of only small amounts of whitish sputum as well as episodes of mental confusion and subjective fever and chills. She further admits that she finished taking antibiotics for a "lung infection " 1 day prior to her onset of new symptoms and she was recently treated for a pleural effusion of her right lung. She uses a trilogy machine at home and is on 4 L of oxygen via nasal cannula at all times. She would be admitted to the [facility] for further evaluation and treatment with an aggressive course of IV steroids, aggressive pulmonary toilet and empiric antibiotic therapy. 08/05/18: Aster states that she feels improved today versus yesterday. Her dyspnea is less severe and she has been having no chest pain, tightness or discomfort. Her cough is improved to the point where she has essentially eradicated the cough and she is not experiencing any mental confusion or feelings of fever or chills. She is continuing to use BiPAP and supplemental oxygen much as she does at home and states she is progressing very much along the lines that she usually progresses during her exacerbations of COPD. Reason For Visit: ACUTE ON CHRONIC RESPIRATORY FAILURE WITH Physical Exam Vital Signs: Temp Pulse Resp BP Pulse Ox 98.2 F 88 16 110/68 100 08/05/18 11:52 08/05/18 11:52 08/05/18 11:52 08/05/18 11:52 08/05/18 11:52 Intake & Output 08/03/18 08/04/18 08/05/18 23:59 23:59 23:59 Intake Total 480 Balance 480 Weight 66 kg 63.6 kg General appearance: PRESENT: no acute distress, cooperative, other - Wearing BiPAP at the time of my evaluation. Head exam: PRESENT: atraumatic, normocephalic Eye exam: ABSENT: conjunctival injection, periorbital swelling, scleral icterus Ear exam: PRESENT: normal external ear exam. ABSENT: drainage Mouth exam: PRESENT: neck supple, tongue midline Neck exam: ABSENT: thyromegaly, tracheal deviation Respiratory exam: PRESENT: decreased breath sounds - Mildly decreased breath sounds noted throughout the chest., prolonged expiratory phas - Mildly to moderately prolonged expiratory phase is noted, symmetrical, wheezes - Moderate end expiratory wheezes are present Cardiovascular exam: PRESENT: RRR. ABSENT: clicks, gallop, rubs Vascular exam: PRESENT: normal capillary refill. ABSENT: pallor GI/Abdominal exam: PRESENT: normal bowel sounds, soft Rectal exam: PRESENT: deferred Extremities exam: ABSENT: joint swelling, pedal edema Musculoskeletal exam: PRESENT: full ROM, normal inspection Neurological exam: PRESENT: alert, oriented to person, oriented to place, oriented to time, oriented to situation, CN II-XII grossly intact. ABSENT: motor sensory deficit Psychiatric exam: PRESENT: appropriate affect, normal mood Skin exam: ABSENT: jaundice, rash, urticaria - [id number] Results Laboratory Results: 08/05/18 12:05 08/05/18 12:05 08/05/18 08/05/18 08/05/18 12:05 12:05 12:05 WBC 8.0 RBC 3.59 L Hgb 11.1 L Hct 33.0 L MCV 92 MCH 30.8 MCHC 33.5 RDW 15.6 H Plt Count 157 Seg Neutrophils % Not Reportable Lymphocytes % Not Reportable Monocytes % Not Reportable Eosinophils % Not Reportable Basophils % Not Reportable Absolute Neutrophils Not Reportable Absolute Lymphocytes Not Reportable Absolute Monocytes Not Reportable Absolute Eosinophils Not Reportable Absolute Basophils Not Reportable VBG pH 7.33 VBG pCO2 94.8 H* VBG HCO3 48.9 H VBG Base Excess 18.6 Sodium 137.8 Potassium 4.6 Chloride 87 L Carbon Dioxide 45 H* Anion Gap 6 BUN 14 Creatinine 0.48 L Est GFR ( Amer) > 60 Est GFR (Non-Af Amer) > 60 Glucose 99 Calcium 8.8 Magnesium 2.2 08/04/18 08/04/18 08/04/18 16:30 16:30 22:28 Creatine Kinase < 20 L 21 L CK-MB (CK-2) 0.75 Troponin I < 0.012 08/04/18 08/05/18 08/05/18 22:28 04:40 04:40 Creatine Kinase < 20 L CK-MB (CK-2) 0.92 0.83 Troponin I < 0.012 < 0.012 Impressions: Chest X-Ray 08/04/18 09:21 IMPRESSION: COPD. NO ACUTE RADIOGRAPHIC FINDING IN THE CHEST. Assessment & Plan - Diagnosis (1) Chest pain Qualifiers: Chest pain type: unspecified Qualified Code(s): R07.9 - Chest pain, unspecified Is this a current diagnosis for this admission?: Yes Plan: Patient has had chest pain of similar nature on numerous occasions however the pain is a central tightness and will be evaluated with serial cardiac enzymes and serial EKGs. Morphine 2 mg IV every hour as needed pain is ordered for control of this chest pain/angina. 08/05/18: Aster is serial troponins and cardiac enzymes were negative for cardiac ischemia or injury as were her serial EKGs which were read by myself personally. Her last EKG showed a normal sinus rhythm at a rate of 98 with no ectopy. Since her chest pain is currently resolved no further evaluation will be done unless there is a recurrence or a new problem. IV morphine 2 mg every hour as needed chest pain will be maintained on her order sheet. (2) Acute and chronic respiratory failure with hypercapnia Is this a current diagnosis for this admission?: Yes Plan: Aster has chronic respiratory failure and generally has a PCO2 of 80-90. Her PCO2 today was 99.4 and she had significant evidence of CO2 narcosis when she was first seen in the emergency room. She has improved substantially on BiPAP therapy in the emergency room. She will be continued on BiPAP and supplemental oxygen as needed and will receive aggressive pulmonary toilet as well as IV steroids during her hospital course. 08/05/18: [place] has shown significant improvement with essentially complete resolution of her acute respiratory failure component. She continues to have chronic respiratory failure and hypercapnia but she is back to her baseline in terms of her respiratory failure. She will be continued on her current therapy with gradual reduction in steroid doses until she is stable enough to be discharged home to continue her chronic respiratory failure therapy there utilizing her trilogy machine and supplemental oxygen. (3) COPD exacerbation Is this a current diagnosis for this admission?: Yes Plan: Patient COPD exacerbation will be managed with IV steroids and aggressive pulmonary toilet with empiric antibiotic therapy. Daily laboratory values will be followed with a CBC, BMP and magnesium level. Additionally patient will have a thyroid screening with a TSH if she has not had a recent test, and other evaluations as appropriate. 08/05/18: Aster will be continued on IV Solu-Medrol with her dose gradually decreased over the next 24-72 hours. She will be continued on empiric antibiotic therapy. Data laboratory values will be followed on an ongoing basis and further radiographic examination will be undertaken only if necessary. Her TSH will be obtained tomorrow morning for thyroid disease evaluation, as thyroid disease may be a contributory factor to worsening pulmonary disease. (4) Hypertension Qualifiers: Hypertension type: essential hypertension Qualified Code(s): I10 - Essential (primary) hypertension Is this a current diagnosis for this admission?: Yes Plan: Patient will be continued on her current antihypertensive regiment with the exception of substitution of metoprolol succinate [address] of the 5 mg of bisoprolol which is not available on formulary. 08/05/18: Patient's blood pressures remained well controlled throughout her hospital course thus far therefore she will be continued on her current therapy at this time and posthospitalization if she is willing to make the appropriate adjustments. (5) Restless legs syndrome Is this a current diagnosis for this admission?: Yes Plan: Patient states that she normally takes 1 mg of ropinirole at bedtime and she was given only one fourth of a milligram of ropinirole last night. She states that that dose will never make her legs stop moving. She would like to have her dose increased to 1 mg nightly and this will be done. - Time Time Spent with patient: 35 or more minutes Medications reviewed and adjusted accordingly: Yes Anticipated discharge: Home Within: within 72 hours
[2018-08-05] MEDS: METHYLPREDNISOLONE INJ 40 MG/1 ML SDV IV SCH ×2 (17:48→21:03)
[2018-08-05] MEDS: MONTELUKAST SODIUM 10 MG TABLET PO SCH (17:48)
[2018-08-05] MEDS: LEVOFLOXACIN 750 MG TABLET PO SCH (17:49)
[2018-08-05] MEDS: POTASSI CL 20 MEQ/D5-1/2NS 1L 1,000 ML IV PRN (17:50)
[2018-08-05] MEDS: ALBUTEROL SULFATE 0.083% NEB 2.5 MG/3 ML AMPUL NEB PRN (20:40)
[2018-08-06] MEDS: IPRATROPIUM BROMIDE 0.02% NEB 0.5 MG/2.5 ML AMPUL NEB SCH ×3 (00:07→16:34)
[2018-08-06] MEDS: LEVALBUTEROL HCL NEB 1.25 MG/3 ML AMPUL NEB SCH ×3 (00:07→16:34)
[2018-08-06] MEDS: POTASSI CL 20 MEQ/D5-1/2NS 1L 1,000 ML IV PRN (03:13)
[2018-08-06] MEDS: METHYLPREDNISOLONE INJ 40 MG/1 ML SDV IV SCH ×3 (05:43→21:17)
[2018-08-06] MEDS: ACETYLCYSTEINE 20% SOLN 800 MG/4 ML VIAL.NEB NEB SCH (07:59)
[2018-08-06] MEDS: BUDESONIDE NEB 0.5 MG/2 ML AMPUL NEB SCH ×2 (07:59→20:22)
[2018-08-06] MEDS: MORPHINE SULFATE 10 MG/ML INJ IV PRN ×6 (08:10→19:13)
[2018-08-06] MEDS: METOPROLOL SUCCINATE 50 MG TAB.SR.24H PO SCH (10:15)
[2018-08-06] MEDS: ROFLUMILAST 500 MCG TABLET PO SCH (10:15)
[2018-08-06] MEDS: ENOXAPARIN SODIUM INJ 40 MG/0.4 ML DISP.SYRIN SUBCUT SCH (10:18)
[2018-08-06 12:22] LABS: VENOUS BLOOD BASE EXCESS 10.8 mmol/L; VENOUS BLOOD HCO3 40.7 mmol/L (20-32); VENOUS BLOOD PH 7.29 (7.30-7.42)
[2018-08-06 12:25] LABS: HEMATOCRIT 35.1 % (36.0-47.0); HEMOGLOBIN 11.6 g/dL (12.0-15.5); MEAN CORPUSCULAR HEMOGLOBIN 30.9 pg (27.0-33.4); MEAN CORPUSCULAR VOLUME 94 fl (80-97); PLATELET COUNT 176 10^3/uL (150-450); RED BLOOD COUNT 3.75 10^6/uL (3.72-5.28); RED CELL DISTRIBUTION WIDTH 15.5 % (11.5-14.0); WHITE BLOOD COUNT 9.8 10^3/uL (4.0-10.5)
[2018-08-06 12:43] LABS: BLOOD UREA NITROGEN 13 mg/dL (7-20); CALCIUM 8.8 mg/dL (8.4-10.2); CHLORIDE 90 mmol/L (98-107); GLUCOSE 109 mg/dL (75-110); POTASSIUM 4.6 mmol/L (3.6-5.0); SODIUM 137.9 mmol/L (137-145)
[2018-08-06 12:49] LABS: ANION GAP 8 (5-19)
[2018-08-06 12:51] LABS: ABSOLUTE LYMPHOCYTES# (MANUAL) 0.3 10^3/uL (0.5-4.7); ABSOLUTE MONOCYTES # (MANUAL) 0.2 10^3/uL (0.1-1.4); ABSOLUTE NEUTROPHILS# (MANUAL) 9.3 10^3/uL (1.7-8.2); ANISOCYTOSIS SLIGHT; BASOPHILS % (MANUAL) 0 % (0-2); EOSINOPHILS % (MANUAL) 0 % (0-6); LYMPHOCYTES % (MANUAL) 3 % (13-45); MONOCYTES % (MANUAL) 2 % (3-13); SEGMENTED NEUTROPHILS % (MAN) 95 % (42-78); TOTAL CELLS COUNTED 100
[2018-08-06 12:52] LABS: PLATELET COMMENT ADEQUATE; POIKILOCYTOSIS 1+; STOMATOCYTES 1+
[2018-08-06 12:53] LABS: CARBON DIOXIDE 40 mmol/L (22-30)
--- NOTE | 2018-08-06 16:30 | PDOC PROGRESS REPORT ---
Subjective Progress Note for:: 08/06/18 Subjective:: ASTER KIMBLE is a 57 year old female who presented to the emergency room with a 5-day history of increasing dyspnea and chest discomfort. She admits that her chest discomfort/pain has been increasingly severe (up to 8/10 on arrival in the ER), nonradiating, tightness in her anterior substernal chest. This episode of pain and dyspnea is not unlike many similar episodes she has had in the past with exacerbations of her COPD. She has not identified any aggravating or ameliorating factors for her dyspnea or chest pain. She does note associated symptoms of a cough productive of only small amounts of whitish sputum as well as episodes of mental confusion and subjective fever and chills. She further admits that she finished taking antibiotics for a "lung infection " 1 day prior to her onset of new symptoms and she was recently treated for a pleural effusion of her right lung. She uses a trilogy machine at home and is on 4 L of oxygen via nasal cannula at all times. She would be admitted to the [facility] for further evaluation and treatment with an aggressive course of IV steroids, aggressive pulmonary toilet and empiric antibiotic therapy. 08/05/18: Aster states that she feels improved today versus yesterday. Her dyspnea is less severe and she has been having no chest pain, tightness or discomfort. Her cough is improved to the point where she has essentially eradicated the cough and she is not experiencing any mental confusion or feelings of fever or chills. She is continuing to use BiPAP and supplemental oxygen much as she does at home and states she is progressing very much along the lines that she usually progresses during her exacerbations of COPD. 08/06/18: Aster is again improved with much better breathing in her assessment today. She is able to tolerate longer periods with just supplemental oxygen at 4 L/min via nasal cannula and gets good relief with the use of BiPAP for an hour or 2 when she tires. She continues to be free of mental confusion and has no fever or chills. She feels like she is making excellent progress and we have discussed possibility of her going home tomorrow or Thursday. She is asked explicitly to have the Mucomyst removed from her nebulizer therapy as "the taste makes her sick". Reason For Visit: ACUTE ON CHRONIC RESPIRATORY FAILURE WITH Physical Exam Vital Signs: Temp Pulse Resp BP Pulse Ox 97.5 F 86 24 H 104/65 100 08/06/18 11:30 08/06/18 11:30 08/06/18 11:30 08/06/18 11:30 08/06/18 11:30 Intake & Output 08/04/18 08/05/18 08/06/18 23:59 23:59 23:59 Intake Total 1533 1340 Balance 1533 1340 Weight 66 kg 63.6 kg 65.3 kg General appearance: PRESENT: no acute distress, cooperative, other - Very comfortable resting in bed using only nasal cannula supplemental oxygen at 4 L/ min. Head exam: PRESENT: atraumatic, normocephalic Eye exam: PRESENT: EOMI, other - Gorman facies is noted.. ABSENT: conjunctival injection, nystagmus, periorbital swelling, scleral icterus Ear exam: PRESENT: normal external ear exam. ABSENT: bleeding, drainage Mouth exam: PRESENT: neck supple, tongue midline Neck exam: ABSENT: thyromegaly, tracheal deviation Respiratory exam: PRESENT: decreased breath sounds - Much improved from yesterday's exam however breath sounds are still minimally diminished in all malik., prolonged expiratory phas - Very minimally prolonged expiratory phase, symmetrical, unlabored, wheezes - Almost inaudible but present and expiratory wheezes Cardiovascular exam: PRESENT: RRR. ABSENT: clicks, gallop, rubs Vascular exam: PRESENT: normal capillary refill. ABSENT: pallor GI/Abdominal exam: PRESENT: normal bowel sounds, soft Rectal exam: PRESENT: deferred Extremities exam: ABSENT: joint swelling, pedal edema Musculoskeletal exam: PRESENT: full ROM, normal inspection Neurological exam: PRESENT: alert, oriented to person, oriented to place, oriented to time, oriented to situation, CN II-XII grossly intact. ABSENT: motor sensory deficit Psychiatric exam: PRESENT: appropriate affect, normal mood Skin exam: ABSENT: jaundice, rash, urticaria - [id number] Results Laboratory Results: 08/06/18 11:50 08/06/18 11:50 08/05/18 08/06/18 08/06/18 04:40 11:50 11:50 WBC 9.8 RBC 3.75 Hgb 11.6 L Hct 35.1 L MCV 94 MCH 30.9 MCHC 33.0 RDW 15.5 H Plt Count 176 Seg Neutrophils % Not Reportable Lymphocytes % Not Reportable Monocytes % Not Reportable Eosinophils % Not Reportable Basophils % Not Reportable Absolute Neutrophils Not Reportable Absolute Lymphocytes Not Reportable Absolute Monocytes Not Reportable Absolute Eosinophils Not Reportable Absolute Basophils Not Reportable VBG pH VBG pCO2 VBG HCO3 VBG Base Excess Sodium 137.9 Potassium 4.6 Chloride 90 L Carbon Dioxide 40 H* Anion Gap 8 BUN 13 Creatinine 0.52 Est GFR ( Amer) > 60 Est GFR (Non-Af Amer) > 60 Glucose 109 Calcium 8.8 Magnesium 2.1 TSH 0.08 L 08/06/18 11:50 WBC RBC Hgb Hct MCV MCH MCHC RDW Plt Count Seg Neutrophils % Lymphocytes % Monocytes % Eosinophils % Basophils % Absolute Neutrophils Absolute Lymphocytes Absolute Monocytes Absolute Eosinophils Absolute Basophils VBG pH 7.29 L VBG pCO2 87.0 H* VBG HCO3 40.7 H VBG Base Excess 10.8 Sodium Potassium Chloride Carbon Dioxide Anion Gap BUN Creatinine Est GFR ( Amer) Est GFR (Non-Af Amer) Glucose Calcium Magnesium TSH 08/04/18 08/04/18 08/04/18 16:30 16:30 22:28 Creatine Kinase < 20 L 21 L CK-MB (CK-2) 0.75 Troponin I < 0.012 08/04/18 08/05/18 08/05/18 22:28 04:40 04:40 Creatine Kinase < 20 L CK-MB (CK-2) 0.92 0.83 Troponin I < 0.012 < 0.012 Impressions: Chest X-Ray 08/04/18 09:21 IMPRESSION: COPD. NO ACUTE RADIOGRAPHIC FINDING IN THE CHEST. Assessment & Plan - Diagnosis (1) Acute and chronic respiratory failure with hypercapnia Is this a current diagnosis for this admission?: Yes Plan: Aster has chronic respiratory failure and generally has a PCO2 of 80-90. Her PCO2 today was 99.4 and she had significant evidence of CO2 narcosis when she was first seen in the emergency room. She has improved substantially on BiPAP therapy in the emergency room. She will be continued on BiPAP and supplemental oxygen as needed and will receive aggressive pulmonary toilet as well as IV steroids during her hospital course. 08/05/18: Aster has shown significant improvement with essentially complete resolution of her acute respiratory failure component. She continues to have chronic respiratory failure and hypercapnia but she is back to her baseline in terms of her respiratory failure. She will be continued on her current therapy with gradual reduction in steroid doses until she is stable enough to be discharged home to continue her chronic respiratory failure therapy there utilizing her trilogy machine and supplemental oxygen. 08/06/18: Aster is significantly improved today and we will continue with her current management utilizing q. 8-hour Solu-Medrol 40 mg IV dosing for approximately 5 more doses. She will continue with supplemental oxygen and BiPAP here in the hospital and we will also continue with the oral antibiotic. She is making dramatic improvement based on her clinical examination and it is anticipated she would be discharged within the next 1-2 days. (2) Chest pain Qualifiers: Chest pain type: unspecified Qualified Code(s): R07.9 - Chest pain, unspecified Is this a current diagnosis for this admission?: Yes Plan: Patient has had chest pain of similar nature on numerous occasions however the pain is a central tightness and will be evaluated with serial cardiac enzymes and serial EKGs. Morphine 2 mg IV every hour as needed pain is ordered for control of this chest pain/angina. 08/05/18: Aster is serial troponins and cardiac enzymes were negative for cardiac ischemia or injury as were her serial EKGs which were read by myself personally. Her last EKG showed a normal sinus rhythm at a rate of 98 with no ectopy. Since her chest pain is currently resolved no further evaluation will be done unless there is a recurrence or a new problem. IV morphine 2 mg every hour as needed chest pain will be maintained on her order sheet. 08/06/18: City his chest pain has not recurred since time of admission. In the absence of any objective findings no further evaluation will be performed. (3) COPD exacerbation Is this a current diagnosis for this admission?: Yes Plan: Patient COPD exacerbation will be managed with IV steroids and aggressive pulmonary toilet with empiric antibiotic therapy. Daily laboratory values will be followed with a CBC, BMP and magnesium level. Additionally patient will have a thyroid screening with a TSH if she has not had a recent test, and other evaluations as appropriate. 08/05/18: Aster will be continued on IV Solu-Medrol with her dose gradually decreased over the next 24-72 hours. She will be continued on empiric antibiotic therapy. Data laboratory values will be followed on an ongoing basis and further radiographic examination will be undertaken only if necessary. Her TSH will be obtained tomorrow morning for thyroid disease evaluation, as thyroid disease may be a contributory factor to worsening pulmonary disease. 08/06/18: Aster will be continued on her IV Solu-Medrol at 40 mg every 8 hours for 5 more doses. I have discontinued her Mucomyst nebulizer therapy at her request. Her TSH was abnormally low at 0.08. A free T4 and free T3 will be obtained for further assessment. Antibiotic therapy will be continued and her clinical course will be reassessed on daily evaluations. (4) Hypertension Qualifiers: Hypertension type: essential hypertension Qualified Code(s): I10 - Essential (primary) hypertension Is this a current diagnosis for this admission?: Yes Plan: Patient will be continued on her current antihypertensive regiment with the exception of substitution of metoprolol succinate [address] of the 5 mg of bisoprolol which is not available on formulary. 08/05/18: Patient's blood pressures remained well controlled throughout her hospital course thus far therefore she will be continued on her current therapy at this time and posthospitalization if she is willing to make the appropriate adjustments. (5) Restless legs syndrome Is this a current diagnosis for this admission?: Yes Plan: Patient states that she normally takes 1 mg of ropinirole at bedtime and she was given only one fourth of a milligram of ropinirole last night. She states that that dose will never make her legs stop moving. She would like to have her dose increased to 1 mg nightly and this will be done. 08/06/18: Aster states that her restless legs were well controlled last night since she was taking the appropriate dose of her medication. - Time Time Spent with patient: 35 or more minutes
[2018-08-06] MEDS: MONTELUKAST SODIUM 10 MG TABLET PO SCH (17:38)
[2018-08-06] MEDS: LEVOFLOXACIN 750 MG TABLET PO SCH (17:39)
[2018-08-06 17:51] LABS: HEMATOCRIT 34.6 % (36.0-47.0); HEMOGLOBIN 11.6 g/dL (12.0-15.5); MEAN CORPUSCULAR HGB CONC 33.6 g/dL (32.0-36.0); MEAN CORPUSCULAR VOLUME 92 fl (80-97); PLATELET COUNT 160 10^3/uL (150-450); RED BLOOD COUNT 3.76 10^6/uL (3.72-5.28); RED CELL DISTRIBUTION WIDTH 15.3 % (11.5-14.0); WHITE BLOOD COUNT 9.7 10^3/uL (4.0-10.5)
[2018-08-06 18:09] LABS: BLOOD UREA NITROGEN 13 mg/dL (7-20); CALCIUM 8.8 mg/dL (8.4-10.2); CHLORIDE 91 mmol/L (98-107); GLUCOSE 115 mg/dL (75-110); POTASSIUM 4.5 mmol/L (3.6-5.0); SODIUM 137.9 mmol/L (137-145)
[2018-08-06 18:25] LABS: ANION GAP 6 (5-19)
[2018-08-06 18:28] LABS: CARBON DIOXIDE 41 mmol/L (22-30)
[2018-08-06] MEDS: ACETAMINOPHEN 325 MG TABLET PO PRN (20:42)
[2018-08-06] MEDS: ROPINIROLE HCL 1 MG TABLET PO SCH (21:17)
[2018-08-07] MEDS: LEVALBUTEROL HCL NEB 1.25 MG/3 ML AMPUL NEB SCH ×3 (00:05→16:06)
[2018-08-07] MEDS: IPRATROPIUM BROMIDE 0.02% NEB 0.5 MG/2.5 ML AMPUL NEB SCH ×3 (00:05→16:06)
[2018-08-07] MEDS: METHYLPREDNISOLONE INJ 40 MG/1 ML SDV IV SCH ×3 (06:01→21:31)
[2018-08-07 07:07] LABS: FREE T3 2.47 pg/mL (2.77-5.27); FREE T4 (FREE THYROXINE) 0.6 ng/dL (0.78-2.19)
[2018-08-07] MEDS: BUDESONIDE NEB 0.5 MG/2 ML AMPUL NEB SCH ×2 (08:23→20:03)
[2018-08-07] MEDS: TIOTROPIUM BROMIDE DPI 5 CAP/KIT (18 MCG/CAP) IH SCH (09:35)
[2018-08-07] MEDS: ROFLUMILAST 500 MCG TABLET PO SCH (09:36)
[2018-08-07] MEDS: METOPROLOL SUCCINATE 50 MG TAB.SR.24H PO SCH (09:36)
[2018-08-07] MEDS: ENOXAPARIN SODIUM INJ 40 MG/0.4 ML DISP.SYRIN SUBCUT SCH (09:36)
[2018-08-07] MEDS: ACETAMINOPHEN 325 MG TABLET PO PRN ×2 (11:00→17:17)
[2018-08-07 16:29] LABS: HEMATOCRIT 32.7 % (36.0-47.0); HEMOGLOBIN 11.1 g/dL (12.0-15.5); MEAN CORPUSCULAR HEMOGLOBIN 31.4 pg (27.0-33.4); MEAN CORPUSCULAR HGB CONC 34.1 g/dL (32.0-36.0); MEAN CORPUSCULAR VOLUME 92 fl (80-97); PLATELET COUNT 144 10^3/uL (150-450); RED BLOOD COUNT 3.55 10^6/uL (3.72-5.28); RED CELL DISTRIBUTION WIDTH 15.5 % (11.5-14.0); WHITE BLOOD COUNT 8.1 10^3/uL (4.0-10.5)
[2018-08-07 16:44] LABS: BLOOD UREA NITROGEN 18 mg/dL (7-20); CALCIUM 8.8 mg/dL (8.4-10.2); CHLORIDE 90 mmol/L (98-107); GLUCOSE 123 mg/dL (75-110); POTASSIUM 4.7 mmol/L (3.6-5.0); SODIUM 137.1 mmol/L (137-145)
[2018-08-07 16:50] LABS: ANION GAP 9 (5-19); CARBON DIOXIDE 38 mmol/L (22-30)
[2018-08-07] MEDS: LEVOFLOXACIN 750 MG TABLET PO SCH (17:17)
[2018-08-07] MEDS ORDERED: LEVOTHYROXINE SODIUM 0.1 MG TABLET PO ONE (17:17)
[2018-08-07] MEDS: MONTELUKAST SODIUM 10 MG TABLET PO SCH (17:17)
--- NOTE | 2018-08-07 17:30 | PDOC PROGRESS REPORT ---
Subjective Progress Note for:: 08/07/18 Subjective:: ASTER KIMBLE is a 57 year old female who presented to the emergency room with a 5-day history of increasing dyspnea and chest discomfort. She admits that her chest discomfort/pain has been increasingly severe (up to 8/10 on arrival in the ER), nonradiating, tightness in her anterior substernal chest. This episode of pain and dyspnea is not unlike many similar episodes she has had in the past with exacerbations of her COPD. She has not identified any aggravating or ameliorating factors for her dyspnea or chest pain. She does note associated symptoms of a cough productive of only small amounts of whitish sputum as well as episodes of mental confusion and subjective fever and chills. She further admits that she finished taking antibiotics for a "lung infection " 1 day prior to her onset of new symptoms and she was recently treated for a pleural effusion of her right lung. She uses a trilogy machine at home and is on 4 L of oxygen via nasal cannula at all times. She would be admitted to the [facility] for further evaluation and treatment with an aggressive course of IV steroids, aggressive pulmonary toilet and empiric antibiotic therapy. 08/05/18: Aster states that she feels improved today versus yesterday. Her dyspnea is less severe and she has been having no chest pain, tightness or discomfort. Her cough is improved to the point where she has essentially eradicated the cough and she is not experiencing any mental confusion or feelings of fever or chills. She is continuing to use BiPAP and supplemental oxygen much as she does at home and states she is progressing very much along the lines that she usually progresses during her exacerbations of COPD. 08/06/18: Aster is again improved with much better breathing in her assessment today. She is able to tolerate longer periods with just supplemental oxygen at 4 L/min via nasal cannula and gets good relief with the use of BiPAP for an hour or 2 when she tires. She continues to be free of mental confusion and has no fever or chills. She feels like she is making excellent progress and we have discussed possibility of her going home tomorrow or Thursday. She is asked explicitly to have the Mucomyst removed from her nebulizer therapy as "the taste makes her sick". 08/07/18: Radha states she is feeling better still today but is not quite ready to be discharged home. She is tolerating periods on supplemental oxygen for nearly the same length of time that she usually is off her trilogy machine at home. She continues to be free of mental confusion and has no signs of illness such as fever, chills, cough, nausea, vomiting or diarrhea. 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 She thinks that she will probably be ready to be discharged tomorrow if she continues her current progress. Reason For Visit: ACUTE ON CHRONIC RESPIRATORY FAILURE WITH Physical Exam Vital Signs: Temp Pulse Resp BP Pulse Ox 97.6 F 80 20 112/70 100 08/07/18 11:52 08/07/18 16:06 08/07/18 16:06 08/07/18 11:52 08/07/18 16:06 Intake & Output 08/05/18 08/06/18 08/07/18 23:59 23:59 23:59 Intake Total 1533 2431 592 Balance 1533 2431 592 Weight 63.6 kg 65.3 kg 65.5 kg General appearance: PRESENT: no acute distress, cooperative Head exam: PRESENT: atraumatic, normocephalic Eye exam: PRESENT: conjunctiva pink. ABSENT: scleral icterus Ear exam: PRESENT: normal external ear exam. ABSENT: drainage Mouth exam: PRESENT: neck supple, tongue midline Neck exam: ABSENT: thyromegaly, tracheal deviation Respiratory exam: PRESENT: decreased breath sounds - Mild decrease in breath sounds throughout all lung malik., prolonged expiratory phas - Very minimally prolonged expiratory phase without wheezes., symmetrical, unlabored Cardiovascular exam: PRESENT: RRR. ABSENT: clicks, gallop, rubs Vascular exam: PRESENT: normal capillary refill. ABSENT: pallor GI/Abdominal exam: PRESENT: normal bowel sounds, soft Rectal exam: PRESENT: deferred Extremities exam: ABSENT: joint swelling, pedal edema Musculoskeletal exam: PRESENT: full ROM, normal inspection Neurological exam: PRESENT: alert, oriented to person, oriented to place, oriented to time, oriented to situation, CN II-XII grossly intact. ABSENT: motor sensory deficit Psychiatric exam: PRESENT: appropriate affect, normal mood Skin exam: ABSENT: jaundice, rash, urticaria Results Laboratory Results: 08/07/18 16:19 08/07/18 16:19 08/06/18 08/06/18 08/07/18 17:15 17:15 06:25 WBC 9.7 RBC 3.76 Hgb 11.6 L Hct 34.6 L MCV 92 MCH 31.0 MCHC 33.6 RDW 15.3 H Plt Count 160 Sodium 137.9 Potassium 4.5 Chloride 91 L Carbon Dioxide 41 H* Anion Gap 6 BUN 13 Creatinine 0.55 Est GFR ( Amer) > 60 Est GFR (Non-Af Amer) > 60 Glucose 115 H Calcium 8.8 Magnesium 2.2 Free T4 0.60 L Free T3 pg/mL 2.47 L 08/07/18 08/07/18 16:19 16:19 WBC 8.1 RBC 3.55 L Hgb 11.1 L Hct 32.7 L MCV 92 MCH 31.4 MCHC 34.1 RDW 15.5 H Plt Count 144 L Sodium 137.1 Potassium 4.7 Chloride 90 L Carbon Dioxide 38 H Anion Gap 9 BUN 18 Creatinine 0.55 Est GFR ( Amer) > 60 Est GFR (Non-Af Amer) > 60 Glucose 123 H Calcium 8.8 Magnesium 2.3 Free T4 Free T3 pg/mL 08/04/18 08/04/18 08/04/18 16:30 16:30 22:28 Creatine Kinase < 20 L 21 L CK-MB (CK-2) 0.75 Troponin I < 0.012 08/04/18 08/05/18 08/05/18 22:28 04:40 04:40 Creatine Kinase < 20 L CK-MB (CK-2) 0.92 0.83 Troponin I < 0.012 < 0.012 Impressions: Chest X-Ray 08/04/18 09:21 IMPRESSION: COPD. NO ACUTE RADIOGRAPHIC FINDING IN THE CHEST. Assessment & Plan - Diagnosis (1) Acute and chronic respiratory failure with hypercapnia Is this a current diagnosis for this admission?: Yes Plan: Aster has chronic respiratory failure and generally has a PCO2 of 80-90. Her PCO2 today was 99.4 and she had significant evidence of CO2 narcosis when she was first seen in the emergency room. She has improved substantially on BiPAP therapy in the emergency room. She will be continued on BiPAP and supplemental oxygen as needed and will receive aggressive pulmonary toilet as well as IV steroids during her hospital course. 08/05/18: Aster has shown significant improvement with essentially complete resolution of her acute respiratory failure component. She continues to have chronic respiratory failure and hypercapnia but she is back to her baseline in terms of her respiratory failure. She will be continued on her current therapy with gradual reduction in steroid doses until she is stable enough to be discharged home to continue her chronic respiratory failure therapy there utilizing her trilogy machine and supplemental oxygen. 08/06/18: Aster is significantly improved today and we will continue with her current management utilizing q. 8-hour Solu-Medrol 40 mg IV dosing for approximately 5 more doses. She will continue with supplemental oxygen and BiPAP here in the hospital and we will also continue with the oral antibiotic. She is making dramatic improvement based on her clinical examination and it is anticipated she would be discharged within the next 1-2 days. 08/07/18: Aster is again significantly improved she will finish her last dose of Solu- Medrol today and will return her to her normal dose of oral prednisone tomorrow. She continues to make progress and will probably be discharged in the morning. (2) Chest pain Qualifiers: Chest pain type: unspecified Qualified Code(s): R07.9 - Chest pain, unspecified Is this a current diagnosis for this admission?: Yes Plan: Patient has had chest pain of similar nature on numerous occasions however the pain is a central tightness and will be evaluated with serial cardiac enzymes and serial EKGs. Morphine 2 mg IV every hour as needed pain is ordered for control of this chest pain/angina. 08/05/18: Aster is serial troponins and cardiac enzymes were negative for cardiac ischemia or injury as were her serial EKGs which were read by myself personally. Her last EKG showed a normal sinus rhythm at a rate of 98 with no ectopy. Since her chest pain is currently resolved no further evaluation will be done unless there is a recurrence or a new problem. IV morphine 2 mg every hour as needed chest pain will be maintained on her order sheet. 08/06/18: Aster's chest pain has not recurred since time of admission. In the absence of any objective findings no further evaluation will be performed. (3) COPD exacerbation Is this a current diagnosis for this admission?: Yes Plan: Patient COPD exacerbation will be managed with IV steroids and aggressive pulmonary toilet with empiric antibiotic therapy. Daily laboratory values will be followed with a CBC, BMP and magnesium level. Additionally patient will have a thyroid screening with a TSH if she has not had a recent test, and other evaluations as appropriate. 08/05/18: Aster will be continued on IV Solu-Medrol with her dose gradually decreased over the next 24-72 hours. She will be continued on empiric antibiotic therapy. Data laboratory values will be followed on an ongoing basis and further radiographic examination will be undertaken only if necessary. Her TSH will be obtained tomorrow morning for thyroid disease evaluation, as thyroid disease may be a contributory factor to worsening pulmonary disease. 08/06/18: Aster will be continued on her IV Solu-Medrol at 40 mg every 8 hours for 5 more doses. I have discontinued her Mucomyst nebulizer therapy at her request. Her TSH was abnormally low at 0.08. A free T4 and free T3 will be obtained for further assessment. Antibiotic therapy will be continued and her clinical course will be reassessed on daily evaluations. 08/07/18: The patient's Solu-Medrol dose will terminate today and we will start her back on her oral prednisone 10 mg daily tomorrow. She will most likely be discharged in the morning. (4) Hypertension Qualifiers: Hypertension type: essential hypertension Qualified Code(s): I10 - Essential (primary) hypertension Is this a current diagnosis for this admission?: Yes Plan: Patient will be continued on her current antihypertensive regiment with the exception of substitution of metoprolol succinate [address] of the 5 mg of bisoprolol which is not available on formulary. 08/05/18: Patient's blood pressures remained well controlled throughout her hospital course thus far therefore she will be continued on her current therapy at this time and posthospitalization if she is willing to make the appropriate adjustments. (5) Restless legs syndrome Is this a current diagnosis for this admission?: Yes Plan: Patient states that she normally takes 1 mg of ropinirole at bedtime and she was given only one fourth of a milligram of ropinirole last night. She states that that dose will never make her legs stop moving. She would like to have her dose increased to 1 mg nightly and this will be done. 08/06/18: Aster states that her restless legs were well controlled last night since she was taking the appropriate dose of her medication. (6) Hypothyroidism Qualifiers: Hypothyroidism type: acquired Qualified Code(s): E03.9 - Hypothyroidism, unspecified Is this a current diagnosis for this admission?: Yes Plan: The patient's hypothyroidism may be due to chronic steroid therapy or other influences but her TSH free T3 and free T4 are all low. She will be given thyroid hormone 100 mcg p.o. now today and then starting tomorrow 75 mcg p.o. every morning with a follow-up with her primary care provider in the near future to reassess her thyroid replacement therapy. - Time Time Spent with patient: 35 or more minutes Smoking Cessation Education: 3 to 10 minutes Medications reviewed and adjusted accordingly: Yes Anticipated discharge: Home Within: within 24 hours
[2018-08-07] MEDS: ROPINIROLE HCL 1 MG TABLET PO SCH (21:31)
[2018-08-08] MEDS: IPRATROPIUM BROMIDE 0.02% NEB 0.5 MG/2.5 ML AMPUL NEB SCH ×2 (00:01→08:18)
[2018-08-08] MEDS: LEVALBUTEROL HCL NEB 1.25 MG/3 ML AMPUL NEB SCH ×2 (00:02→08:18)
[2018-08-08] MEDS ORDERED: LEVOTHYROXINE SODIUM 0.075 MG TABLET PO SCH (06:00)
[2018-08-08] MEDS: BUDESONIDE NEB 0.5 MG/2 ML AMPUL NEB SCH (08:18)
[2018-08-08] MEDS: ENOXAPARIN SODIUM INJ 40 MG/0.4 ML DISP.SYRIN SUBCUT SCH (09:08)
[2018-08-08] MEDS: TIOTROPIUM BROMIDE DPI 5 CAP/KIT (18 MCG/CAP) IH SCH (09:08)
[2018-08-08] MEDS: ROFLUMILAST 500 MCG TABLET PO SCH (09:08)
[2018-08-08] MEDS: METOPROLOL SUCCINATE 50 MG TAB.SR.24H PO SCH (09:08)
[2018-08-08] MEDS ORDERED: PREDNISONE 10 MG TABLET PO SCH (10:00)
[2018-08-08 10:47] VITALS: BP 106/61
--- NOTE | 2018-08-08 15:23 | PDOC DISCHARGE SUMMARY ---
General - Admit/Disc Date/PCP Admission Date/Primary Care Provider: 08/04/18 11:58 SUDARSHAN HAYS MD Discharge Date: 08/08/18 - Discharge Diagnosis (1) Acute and chronic respiratory failure with hypercapnia Is this a current diagnosis for this admission?: Yes Summary: Aster has chronic respiratory failure and generally has a PCO2 of 80-90. Her PCO2 today was 99.4 and she had significant evidence of CO2 narcosis when she was first seen in the emergency room. She has improved substantially on BiPAP therapy in the emergency room. She will be continued on BiPAP and supplemental oxygen as needed and will receive aggressive pulmonary toilet as well as IV steroids during her hospital course. 08/05/18: Aster has shown significant improvement with essentially complete resolution of her acute respiratory failure component. She continues to have chronic respiratory failure and hypercapnia but she is back to her baseline in terms of her respiratory failure. She will be continued on her current therapy with gradual reduction in steroid doses until she is stable enough to be discharged home to continue her chronic respiratory failure therapy there utilizing her trilogy machine and supplemental oxygen. 08/06/18: Aster is significantly improved today and we will continue with her current management utilizing q. 8-hour Solu-Medrol 40 mg IV dosing for approximately 5 more doses. She will continue with supplemental oxygen and BiPAP here in the hospital and we will also continue with the oral antibiotic. She is making dramatic improvement based on her clinical examination and it is anticipated she would be discharged within the next 1-2 days. 08/07/18: Aster is again significantly improved she will finish her last dose of Solu- Medrol today and will return her to her normal dose of oral prednisone tomorrow. She continues to make progress and will probably be discharged in the morning. (2) Chest pain Is this a current diagnosis for this admission?: Yes Summary: Patient has had chest pain of similar nature on numerous occasions however the pain is a central tightness and will be evaluated with serial cardiac enzymes and serial EKGs. Morphine 2 mg IV every hour as needed pain is ordered for control of this chest pain/angina. 08/05/18: Aster is serial troponins and cardiac enzymes were negative for cardiac ischemia or injury as were her serial EKGs which were read by myself personally. Her last EKG showed a normal sinus rhythm at a rate of 98 with no ectopy. Since her chest pain is currently resolved no further evaluation will be done unless there is a recurrence or a new problem. IV morphine 2 mg every hour as needed chest pain will be maintained on her order sheet. 08/06/18: Aster's chest pain has not recurred since time of admission. In the absence of any objective findings no further evaluation will be performed. (3) COPD exacerbation Is this a current diagnosis for this admission?: Yes Summary: Patient COPD exacerbation will be managed with IV steroids and aggressive pulmonary toilet with empiric antibiotic therapy. Daily laboratory values will be followed with a CBC, BMP and magnesium level. Additionally patient will have a thyroid screening with a TSH if she has not had a recent test, and other evaluations as appropriate. 08/05/18: Aster will be continued on IV Solu-Medrol with her dose gradually decreased over the next 24-72 hours. She will be continued on empiric antibiotic therapy. Data laboratory values will be followed on an ongoing basis and further radiographic examination will be undertaken only if necessary. Her TSH will be obtained tomorrow morning for thyroid disease evaluation, as thyroid disease may be a contributory factor to worsening pulmonary disease. 08/06/18: Aster will be continued on her IV Solu-Medrol at 40 mg every 8 hours for 5 more doses. I have discontinued her Mucomyst nebulizer therapy at her request. Her TSH was abnormally low at 0.08. A free T4 and free T3 will be obtained for further assessment. Antibiotic therapy will be continued and her clinical course will be reassessed on daily evaluations. 08/07/18: The patient's Solu-Medrol dose will terminate today and we will start her back on her oral prednisone 10 mg daily tomorrow. She will most likely be discharged in the morning. (4) Hypertension Is this a current diagnosis for this admission?: Yes Summary: Patient will be continued on her current antihypertensive regiment with the exception of substitution of metoprolol succinate [address] of the 5 mg of bisoprolol which is not available on formulary. 08/05/18: Patient's blood pressures remained well controlled throughout her hospital course thus far therefore she will be continued on her current therapy at this time and posthospitalization if she is willing to make the appropriate adjustments. (5) Restless legs syndrome Is this a current diagnosis for this admission?: Yes Summary: Patient states that she normally takes 1 mg of ropinirole at bedtime and she was given only one fourth of a milligram of ropinirole last night. She states that that dose will never make her legs stop moving. She would like to have her dose increased to 1 mg nightly and this will be done. 08/06/18: Aster states that her restless legs were well controlled last night since she was taking the appropriate dose of her medication. (6) Hypothyroidism Is this a current diagnosis for this admission?: Yes Summary: The patient's hypothyroidism may be due to chronic steroid therapy or other influences but her TSH free T3 and free T4 are all low. She will be given thyroid hormone 100 mcg p.o. now today and then starting tomorrow 75 mcg p.o. in the morning with a regular daily dosage of 25 mcg every morning thereafter and instructions to follow-up with her primary care provider in the near future to reassess her thyroid replacement therapy. - Additional Information Resuscitation Status: Full Code Discharge Diet: As Tolerated Discharge Activity: Activity As Tolerated, Balance Activity w/Rest Prescriptions: Levothyroxine Sodium 25 mcg PO DAILY 30 Days #30 tablet Home Medications: Albuterol Sulfate [Proventil Hfa] 1 puff IH Q6HP PRN 08/04/18 Bisoprolol Fumarate [Zebeta 5 mg Tablet] 2.5 mg PO DAILY 08/04/18 Budesonide/Formoterol Fumarate [Symbicort HFA 160-4.5 mcg Inhaler 6 gm] 1 puff IH Q12 08/04/18 Ipratropium/Albuterol Sulfate [Iprat-Albut 0.5-3(2.5) mg/3 ml] 3 ml NEB Q4HP PRN 08/04/18 Levocetirizine Dihydrochloride [Xyzal] 5 mg PO DAILY 08/04/18 Montelukast Sodium [Singulair 10 mg Tablet] 10 mg PO QPM 08/04/18 Ondansetron HCl [Zofran 4 mg Tablet] 4 mg PO DAILYP PRN 08/04/18 Prednisone [Deltasone 10 mg Tablet] 10 mg PO DAILY 08/04/18 Roflumilast [Daliresp 500 mcg Tablet] 500 mcg PO DAILY 08/04/18 Ropinirole HCl [Requip] 0.5 mg PO BID 08/04/18 Tiotropium Campbell [Spiriva Handihaler 5 Cap/Kit (18 Mcg/Cap)] 1 puff IH DAILY 08/04/18 Levothyroxine Sodium 25 mcg PO DAILY 30 Days #30 tablet 08/08/18 History of Present Illness History of Present Illness: ASTER KIMBLE is a 57 year old female who presented to the emergency room with a 5-day history of increasing dyspnea and chest discomfort. She admits that her chest discomfort/pain has been increasingly severe (up to 05/28 on arrival in the ER), nonradiating, tightness in her anterior substernal chest. This episode of pain and dyspnea is not unlike many similar episodes she has had in the past with exacerbations of her COPD. She has not identified any aggravating or ameliorating factors for her dyspnea or chest pain. She does note associated symptoms of a cough productive of only small amounts of whitish sputum as well as episodes of mental confusion and subjective fever and chills. She further admits that she finished taking antibiotics for a "lung infection " 1 day prior to her onset of new symptoms and she was recently treated for a pleural effusion of her right lung. She uses a trilogy machine at home and is on 4 L of oxygen via nasal cannula at all times. She would be admitted to the [facility] for further evaluation and treatment with an aggressive course of IV steroids, aggressive pulmonary toilet and empiric antibiotic therapy. Hospital Course Hospital Course: 08/05/18: Aster states that she feels improved today versus yesterday. Her dyspnea is less severe and she has been having no chest pain, tightness or discomfort. Her cough is improved to the point where she has essentially eradicated the cough and she is not experiencing any mental confusion or feelings of fever or chills. She is continuing to use BiPAP and supplemental oxygen much as she does at home and states she is progressing very much along the lines that she usually progresses during her exacerbations of COPD. 08/06/18: Aster is again improved with much better breathing in her assessment today. She is able to tolerate longer periods with just supplemental oxygen at 4 L/min via nasal cannula and gets good relief with the use of BiPAP for an hour or 2 when she tires. She continues to be free of mental confusion and has no fever or chills. She feels like she is making excellent progress and we have discussed possibility of her going home tomorrow or Thursday. She is asked explicitly to have the Mucomyst removed from her nebulizer therapy as "the taste makes her sick". 08/07/18: Aster states she is feeling better still today but is not quite ready to be discharged home. She is tolerating periods on supplemental oxygen for nearly the same length of time that she usually is off her trilogy machine at home. She continues to be free of mental confusion and has no signs of illness such as fever, chills, cough, nausea, vomiting or diarrhea. 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 She thinks that she will probably be ready to be discharged tomorrow if she continues her current progress. 08/08/18: Aster continues to do quite well and feels like she is ready to be discharged home today with her usual medications. She feels that the addition of levothyroxine has significantly improved her chronic headaches and also seems to be helping with her breathing better. She will be discharged home in improved and stable condition this morning. Physical Exam Vital Signs: Temp Pulse Resp BP Pulse Ox 97.5 F 82 19 106/61 100 08/08/18 10:44 08/08/18 10:44 08/08/18 10:44 08/08/18 10:44 08/08/18 10:44 Intake & Output 08/06/18 08/07/18 08/08/18 23:59 23:59 23:59 Intake Total 2431 1513 Balance 2431 1513 Weight 65.3 kg 65.5 kg 65.7 kg General appearance: PRESENT: no acute distress, cooperative Head exam: PRESENT: atraumatic, normocephalic Respiratory exam: PRESENT: decreased breath sounds - Breath sounds are mildly decreased throughout all lung malik, prolonged expiratory phas - Expiratory phase is minimally prolonged in all lung malik, symmetrical, unlabored, wheezes - Rare wheezes are noted at the terminus of the expiratory phase throughout the chest. Cardiovascular exam: PRESENT: RRR. ABSENT: clicks, gallop, rubs Vascular exam: PRESENT: normal capillary refill. ABSENT: pallor GI/Abdominal exam: PRESENT: normal bowel sounds, soft Rectal exam: PRESENT: deferred Extremities exam: ABSENT: joint swelling, pedal edema Musculoskeletal exam: PRESENT: full ROM, normal inspection Neurological exam: PRESENT: alert, oriented to person, oriented to place, oriented to time, oriented to situation, CN II-XII grossly intact. ABSENT: motor sensory deficit Psychiatric exam: PRESENT: appropriate affect, normal mood Skin exam: ABSENT: jaundice, rash, urticaria Results Laboratory Results: 08/07/18 16:19 08/07/18 16:19 08/07/18 08/07/18 16:19 16:19 WBC 8.1 RBC 3.55 L Hgb 11.1 L Hct 32.7 L MCV 92 MCH 31.4 MCHC 34.1 RDW 15.5 H Plt Count 144 L Sodium 137.1 Potassium 4.7 Chloride 90 L Carbon Dioxide 38 H Anion Gap 9 BUN 18 Creatinine 0.55 Est GFR ( Amer) > 60 Est GFR (Non-Af Amer) > 60 Glucose 123 H Calcium 8.8 Magnesium 2.3 08/04/18 08/04/18 08/04/18 16:30 16:30 22:28 Creatine Kinase < 20 L 21 L CK-MB (CK-2) 0.75 Troponin I < 0.012 08/04/18 08/05/18 08/05/18 22:28 04:40 04:40 Creatine Kinase < 20 L CK-MB (CK-2) 0.92 0.83 Troponin I < 0.012 < 0.012 Impressions: Chest X-Ray 08/04/18 09:21 IMPRESSION: COPD. NO ACUTE RADIOGRAPHIC FINDING IN THE CHEST. Qualifiers - * PATIENT BEING DISCHARGED WITH ANY OF THE FOLLOWING DIAGNOSIS: No Plan Discharge Plan: Patient is discharged home in improved and stable condition Time Spent: Greater than 30 Minutes
== END 2018-08-08 12:00 | disposition home or self-care (01) | DRG 189 ==
LOC: ER 09:09 → EH 11:58 → 3S 17:10
PROVIDERS: ADMIT Emergency Medicine; ATTEND Emergency Medicine
PROC: 5A09457 Assistance with Respiratory Ventilation, 24-96 Consecutive Hours, Continuous Positive Airway Pressure (ICD-10-PCS; principal; 2018-08-04)
PROC: 3E0F73Z Introduction of Anti-inflammatory into Respiratory Tract, Via Natural or Artificial Opening (ICD-10-PCS; 2018-08-04)
DX: J96.22 Acute and chronic respiratory failure with hypercapnia (principal); J44.1 Chronic obstructive pulmonary disease with (acute) exacerbation; I10 Essential (primary) hypertension; G25.81 Restless legs syndrome; E03.9 Hypothyroidism, unspecified; G43.909 Migraine, unspecified, not intractable, without status migrainosus; M19.90 Unspecified osteoarthritis, unspecified site; K21.9 Gastro-esophageal reflux disease without esophagitis; F17.210 Nicotine dependence, cigarettes, uncomplicated; Z90.710 Acquired absence of both cervix and uterus; Z99.81 Dependence on supplemental oxygen; Z79.899 Other long term (current) drug therapy; Z88.2 Allergy status to sulfonamides; Z88.8 Allergy status to other drugs, medicaments and biological substances; Z82.49 Family history of ischemic heart disease and other diseases of the circulatory system
CPT/HCPCS: 36415; 71045; 80048; 80053; 82550; 82553; 82803; 83605; 83735; 83880; 84439; 84443; 84481; 84484; 85025; 85027; 87040; 93005; 93010; 94640; 94660; 96374; 96375; 99291; J0456; J0696; J1650; J2270; J2920; J2930; J3480; J3490; J7512; J7620

== ENCOUNTER 2018-09-30 16:17 | Inpatient (IN) | payer MEDICARE ==
--- NOTE | 2018-09-30 16:57 | ER Document Report ---
ED Medical Screen (RME) - General Chief Complaint: Shortness Of Breath Stated Complaint: LIGHT HEADED/WHEEZY Time Seen by Provider: 09/30/18 16:52 Notes: 58 years old female with PD presents today with sudden onset of epigastric pain just prior to arrival. Associated with increasing shortness of breath. No fever chills. No productive cough. Lung sounds decreased breath sounds expiratory mild wheezes. No obvious chest wall tenderness. TRAVEL OUTSIDE OF THE [place] IN LAST 30 DAYS: No - Related Data Allergies/Adverse Reactions: doxepin [Doxepin] Allergy (Verified 09/30/18 16:24) Shortness of Breath, Swelling etodolac [Etodolac] Allergy (Verified 09/30/18 16:24) loratadine [Loratadine] Allergy (Verified 09/30/18 16:24) Shortness of Breath, Swelling meloxicam [Meloxicam] Allergy (Verified 09/30/18 16:24) Sulfa (Sulfonamide Antibiotics) Allergy (Verified 09/30/18 16:24) Shortness of Breath, Swelling Past Medical History - Past Medical History Cardiac Medical History: Reports: Hx Congestive Heart Failure - Diastolic, Hx Hypertension Denies: Hx Atrial Fibrillation, Hx DVT, Hx Heart Attack, Hx Hypercholesterolemia, Hx Pulmonary Embolism Pulmonary Medical History: Reports: Hx Asthma, Hx Bronchitis, Hx COPD - home O2 & BIPAP-dependent, Hx Pneumonia Neurological Medical History: Reports: Hx Migraine. Denies: Hx Seizures Endocrine Medical History: Denies: Hx Diabetes Mellitus Type 1, Hx Diabetes Mellitus Type 2, Hx Hyperthyroidism, Hx Hypothyroidism Renal/ Medical History: Denies: Hx End Stage Renal Disease, Hx Peritoneal Dialysis GI Medical History: Reports: Hx Gastroesophageal Reflux Disease. Denies: Hx Cirrhosis, Hx Crohn's Disease, Hx Hepatitis, Hx Ulcerative Colitis Musculoskeltal Medical History: Reports Hx Arthritis, Denies Hx Gout, Reports Hx Muscle Weakness Skin Medical History: Denies Hx Eczema, Denies Hx Psoriasis Psychiatric Medical History: Denies: Hx Bipolar Disorder, Hx Depression Traumatic Medical History: Reports: Hx Pneumothorax - x4 R lung, 2010 when the patient had a right lung bx required a chest tube. Denies: Hx Gunshot Wound Infectious Medical History: Denies: Hx Hepatitis Past Surgical History: Reports: Hx Gynecologic Surgery, Hx Hysterectomy, Hx Tonsillectomy, Hx Tubal Ligation - Immunizations Hx Diphtheria, Pertussis, Tetanus Vaccination: No History of Influenza Vaccine for 07/2017 - 12/2017 Season: Yes Influenza Administration Date for 07/2017 - 12/2017 Season: 07/01/17 Physical Exam - Vital signs Vitals: Temp Pulse Resp BP Pulse Ox 98.6 F 107 H 24 H 109/63 97 09/30/18 16:27 09/30/18 16:27 09/30/18 16:27 09/30/18 16:27 09/30/18 16:27 Course - Vital Signs Vital signs: Temp Pulse Resp BP Pulse Ox 98.6 F 107 H 24 H 109/63 97 09/30/18 16:27 09/30/18 16:27 09/30/18 16:27 09/30/18 16:27 09/30/18 16:27 Doctor's Discharge - Discharge Referrals: SUDARSHAN HAYS MD [Primary Care Provider] - Follow up as needed
--- NOTE | 2018-09-30 17:14 | RADIOLOGY REPORT (SQ) ---
EXAM DESCRIPTION: CHEST SINGLE VIEW COMPLETED DATE/TIME: 09/30/2018 5:06 pm REASON FOR STUDY: Chest pain COMPARISON: 08/04/2018 EXAM PARAMETERS: NUMBER OF VIEWS: One view. TECHNIQUE: Single frontal radiographic view of the chest acquired. RADIATION DOSE: NA LIMITATIONS: None. FINDINGS: LUNGS AND PLEURA: Patchy bilateral airspace densities are identified primarily in the righ t lower lung field most consistent with an acute process superimposed on chronic underlying changes. There is some blunting of the left costophrenic angle most consistent with pleural reaction. No def inite pleural effusions are identified. No pneumothorax is seen MEDIASTINUM AND HILAR STRUCTURES: No masses. Contour normal. HEART AND VASCULAR STRUCTURES: The configuration of the heart mediastinal structures is unchanged. BONES: No acute findings. HARDWARE: None in the chest. OTHER: No other significant finding. IMPRESSION: Patchy bilateral airspace densities as noted above primarily in the right lower lung fie ld most consistent with an acute process superimposed on chronic underlying changes. Other findings as noted above TECHNICAL DOCUMENTATION: JOB ID: [id number] [employer]- All Rights Reserved Reading location - IP/workstation name: [email or web address]
[2018-09-30 18:08] LABS: HEMATOCRIT 36.7 % (36.0-47.0); MEAN CORPUSCULAR HEMOGLOBIN 30.6 pg (27.0-33.4); MEAN CORPUSCULAR HGB CONC 32.8 g/dL (32.0-36.0); MEAN CORPUSCULAR VOLUME 93 fl (80-97); PLATELET COUNT 156 10^3/uL (150-450); RED BLOOD COUNT 3.93 10^6/uL (3.72-5.28); RED CELL DISTRIBUTION WIDTH 14.9 % (11.5-14.0); WHITE BLOOD COUNT 14.3 10^3/uL (4.0-10.5)
[2018-09-30 18:21] LABS: ABSOLUTE LYMPHOCYTES# (MANUAL) 0.4 10^3/uL (0.5-4.7); ABSOLUTE MONOCYTES # (MANUAL) 0.7 10^3/uL (0.1-1.4); ABSOLUTE NEUTROPHILS# (MANUAL) 13.2 10^3/uL (1.7-8.2); ANISOCYTOSIS SLIGHT; BASOPHILS % (MANUAL) 0 % (0-2); EOSINOPHILS % (MANUAL) 0 % (0-6); LYMPHOCYTES % (MANUAL) 3 % (13-45); MONOCYTES % (MANUAL) 5 % (3-13); PLATELET COMMENT ADEQUATE; SEGMENTED NEUTROPHILS % (MAN) 92 % (42-78); TOTAL CELLS COUNTED 100; TOXIC GRANULATION SLIGHT
[2018-09-30 18:27] LABS: ALANINE AMINOTRANSFERASE 9 U/L (9-52); ALBUMIN 4.2 g/dL (3.5-5.0); ALKALINE PHOSPHATASE 46 U/L (38-126); ASPARTATE AMINO TRANSFERASE 13 U/L (14-36); BILIRUBIN,DIRECT 0.2 mg/dL (0.0-0.4); BILIRUBIN,TOTAL 0.3 mg/dL (0.2-1.3); BLOOD UREA NITROGEN 21 mg/dL (7-20); CALCIUM 9.3 mg/dL (8.4-10.2); CHLORIDE 92 mmol/L (98-107); GLUCOSE 122 mg/dL (75-110); POTASSIUM 3.8 mmol/L (3.6-5.0); SODIUM 146.6 mmol/L (137-145); TOTAL PROTEIN 6.7 g/dL (6.3-8.2)
[2018-09-30 18:36] LABS: ANION GAP 9 (5-19); CREATINE KINASE < 20 U/L (30-135)
[2018-09-30 18:37] LABS: CREATINE KINASE MB 0.77 ng/mL (<4.55)
[2018-09-30 18:38] LABS: CARBON DIOXIDE 46 mmol/L (22-30)
[2018-09-30 18:42] LABS: TROPONIN I < 0.012 ng/mL
[2018-09-30] MEDS ORDERED: NORMAL SALINE 1000 ML 1,000 ML IV ONE (19:20)
[2018-09-30] MEDS ORDERED: PIPERACILLIN/TAZOBACTAM 4.5 GM VIAL IV ONE (19:20)
[2018-09-30] MEDS ORDERED: METHYLPREDNISOLONE INJ 125 MG/2 ML SDV IV ONE (19:21)
[2018-09-30] MEDS ORDERED: IPRATROPIUM/ALBUTEROL 0.5-2.5 MG/3 ML AMPUL NEB ONE (19:21)
[2018-09-30] MEDS ORDERED: ALBUTEROL SULFATE 0.083% NEB 2.5 MG/3 ML AMPUL NEB ONE (19:21)
--- NOTE | 2018-09-30 20:21 | ER Document Report ---
ED Respiratory Problem - General Information source: Patient TRAVEL OUTSIDE OF THE [place] IN LAST 30 DAYS: No <ALEX THAYER - Last Filed: 09/30/18 21:20> <VIN STEWART - Last Filed: 10/01/18 04:46> - General Chief Complaint: Shortness Of Breath Stated Complaint: LIGHT HEADED/WHEEZY Time Seen by Provider: 09/30/18 16:52 Notes: 58-year-old female who presents to the emergency department today with complaints of lightheadedness, headache, fevers, right-sided chest tightness, and a cough. Patient has a history of COPD, still smokes, and is on 4 L of home oxygen daily. Patient is on an extended taper dose of steroids, stating she was started on them over and she is currently taking 10 mg daily. Patient was last hospitalized for pneumonia on August 08. Patient states the cough has not been productive. (ALEX THAYER) - Related Data Allergies/Adverse Reactions: doxepin [Doxepin] Allergy (Verified 09/30/18 16:24) Shortness of Breath, Swelling etodolac [Etodolac] Allergy (Verified 09/30/18 16:24) loratadine [Loratadine] Allergy (Verified 09/30/18 16:24) Shortness of Breath, Swelling meloxicam [Meloxicam] Allergy (Verified 09/30/18 16:24) Sulfa (Sulfonamide Antibiotics) Allergy (Verified 09/30/18 16:24) Shortness of Breath, Swelling Past Medical History - General Information source: Patient - Social History Smoking Status: Unknown if Ever Smoked Family History: Hyperlipidemia, Hypertension Patient has suicidal ideation: No Patient has homicidal ideation: No - Past Medical History Cardiac Medical History: Reports: Hx Congestive Heart Failure - Diastolic, Hx Hypertension Denies: Hx Atrial Fibrillation, Hx DVT, Hx Heart Attack, Hx Hypercholesterolemia, Hx Pulmonary Embolism Pulmonary Medical History: Reports: Hx Asthma, Hx Bronchitis, Hx COPD - home O2 & BIPAP-dependent, Hx Pneumonia Neurological Medical History: Reports: Hx Migraine. Denies: Hx Seizures Endocrine Medical History: Denies: Hx Diabetes Mellitus Type 1, Hx Diabetes Mellitus Type 2, Hx Hyperthyroidism, Hx Hypothyroidism Renal/ Medical History: Denies: Hx End Stage Renal Disease, Hx Peritoneal Dialysis GI Medical History: Reports: Hx Gastroesophageal Reflux Disease. Denies: Hx Cirrhosis, Hx Crohn's Disease, Hx Hepatitis, Hx Ulcerative Colitis Musculoskeletal Medical History: Reports Hx Arthritis, Denies Hx Gout, Reports Hx Muscle Weakness Skin Medical History: Denies Hx Eczema, Denies Hx Psoriasis Psychiatric Medical History: Denies: Hx Bipolar Disorder, Hx Depression Traumatic Medical History: Reports: Hx Pneumothorax - x4 R lung, 2010 when the patient had a right lung bx required a chest tube. Denies: Hx Gunshot Wound Infectious Medical History: Denies: Hx Hepatitis Past Surgical History: Reports: Hx Gynecologic Surgery, Hx Hysterectomy, Hx Tonsillectomy, Hx Tubal Ligation - Immunizations Hx Diphtheria, Pertussis, Tetanus Vaccination: No Hx Pneumococcal Vaccination: 04/25/09 <ALEX THAYER - Last Filed: 09/30/18 21:20> Review of Systems - Review of Systems Constitutional: See HPI, Fever EENT: No symptoms reported Cardiovascular: See HPI, Syncope - near, Dizziness, Lightheaded Respiratory: See HPI, Short of breath, Other - right sided chest tightness Gastrointestinal: No symptoms reported Genitourinary: No symptoms reported Female Genitourinary: No symptoms reported Musculoskeletal: No symptoms reported Skin: No symptoms reported Hematologic/Lymphatic: No symptoms reported Neurological/Psychological: No symptoms reported -: Yes All other systems reviewed and negative <ALEX THAYER - Last Filed: 09/30/18 21:20> Physical Exam <ALEX THAYER - Last Filed: 09/30/18 21:20> <VIN STEWART - Last Filed: 10/01/18 04:46> - Vital signs Vitals: Temp Pulse Resp BP Pulse Ox 98.6 F 107 H 24 H 109/63 97 09/30/18 16:27 09/30/18 16:27 09/30/18 16:27 09/30/18 16:27 09/30/18 16:27 - Notes Notes: PHYSICAL EXAM GENERAL: Alert, interacts well. Appears mildly short of breath. HEAD: Normocephalic, atraumatic. EYES: Pupils equal, round, and reactive to light. Extraocular movements intact. ENT: Oral mucosa moist, tongue midline. NECK: Full range of motion. Supple. Trachea midline. LUNGS: Moderate diffuse expiratory wheezing bilaterally. No rales or rhonchi. Mild respiratory distress. Tachypneic. Slight pleural rub on the right. HEART: Tachycardic, regular rhythm. No murmurs, gallops, or rubs. EXTREMITIES: Moves all 4 extremities spontaneously. NEUROLOGICAL: Alert and oriented x3. Normal speech. PSYCH: Normal affect, normal mood. SKIN: Warm, dry, normal turgor. No rashes or lesions noted. (ALEX THAYER) Course - Laboratory Result Diagrams: 09/30/18 17:40 09/30/18 17:40 <ALEX THAYER - Last Filed: 09/30/18 21:20> - Laboratory Result Diagrams: 09/30/18 17:40 09/30/18 17:40 <VIN STEWART - Last Filed: 10/01/18 04:46> - Re-evaluation Re-evalutation: 09/30/18 21:16 CBC shows leukocytosis with a left shift, CMP shows elevated CO2 consistent with her history of COPD, otherwise grossly unremarkable, cardiac enzymes negative, urinalysis grossly unremarkable, chest x-ray shows patchy airspace disease likely consistent with right lower lobe pneumonia. Patient does not have increased oxygen demand compared to baseline. Stable on her usual 2 L via nasal cannula. Patient has had multiple breathing treatments and continues to breathe approximately 30-40 times a minute, continues to have diffuse expiratory wheezing after multiple treatments and multiple rechecks. Patient will be placed on BiPAP for acute COPD exacerbation as well as pneumonia, Zosyn was initially started due to suspicion of sepsis with unknown organism, discussed case with Dr. Olmos who will admit the patient to his service on the [facility] [place] he will likely broaden antibiotic coverage to Invanz due to risk factors for healthcare associated pneumonia. Patient was also given steroids. ( VIN STEWART) - Vital Signs Vital signs: Temp Pulse Resp BP Pulse Ox 97.5 F 98 18 110/62 97 10/01/18 03:15 10/01/18 03:15 10/01/18 03:15 10/01/18 03:15 10/01/18 03:15 - Laboratory Laboratory results interpreted by me: 09/30/18 09/30/18 09/30/18 17:40 17:40 20:03 WBC 14.3 H RDW 14.9 H Seg Neuts % (Manual) 92 H Lymphocytes % (Manual) 3 L Abs Neuts (Manual) 13.2 H Abs Lymphs (Manual) 0.4 L VBG pCO2 VBG HCO3 Sodium 146.6 H Chloride 92 L Carbon Dioxide 46 H* BUN 21 H Creatinine 0.43 L Glucose 122 H AST 13 L Creatine Kinase < 20 L Urine Protein 30 H Urine Bilirubin SMALL H Urine Urobilinogen 2.0 H 09/30/18 20:37 WBC RDW Seg Neuts % (Manual) Lymphocytes % (Manual) Abs Neuts (Manual) Abs Lymphs (Manual) VBG pCO2 98.7 H* VBG HCO3 48.6 H Sodium Chloride Carbon Dioxide BUN Creatinine Glucose AST Creatine Kinase Urine Protein Urine Bilirubin Urine Urobilinogen - EKG Interpretation by Me Additional EKG results interpreted by me: 09/30/18 21:16 EKG shows sinus tachycardia at a rate of 103, normal axis, normal intervals, no ST segment (VIN STEWART) Critical Care Note - Critical Care Note Total time excluding time spent on procedures (mins): 45 <VIN STEWART - Last Filed: 10/01/18 04:46> Discharge <ALEX THAYER - Last Filed: 09/30/18 21:20> - Discharge Admitting Provider: Hospitalist [facility] Admitted: [facility] <VIN STEWART - Last Filed: 10/01/18 04:46> - Discharge Clinical Impression: COPD exacerbation, Oxygen dependent Right lower lobe pneumonia Qualifiers: Pneumonia type: due to unspecified organism Qualified Code(s): J18.1 - Lobar pneumonia, unspecified organism Condition: Serious Disposition: ADMITTED INPATIENT Scribe Attestation: 10/01/18 04:46 I personally performed the services described in the documentation, reviewed and edited the documentation which was dictated to the scribe in my presence, and it accurately records my words and actions. (VIN STEWART) Scribe Documentation - Scribe Written by Pankaj:: Pankaj Geronimo, [id number] acting as scribe for :: Antonina <ALEX THAYER - Last Filed: 09/30/18 21:20>
[2018-09-30 20:42] LABS: APPEARANCE,URINE CLOUDY; BILIRUBIN,URINE SMALL (NEGATIVE); CALCIUM OXALATE CRYSTALS,URINE MODERATE /HPF; COLOR,URINE AMBER; GLUCOSE, URINE NEGATIVE (NEGATIVE); KETONES,URINE NEGATIVE (NEGATIVE); LEUKOCYTE ESTERASE,URINE NEGATIVE (NEGATIVE); NITRITE,URINE NEGATIVE (NEGATIVE); PROTEIN,URINE 30 mg/dL (NEGATIVE)
[2018-09-30] MEDS ORDERED: ONDANSETRON HCL INJ/PF 4 MG/2 ML SDV IV PRN (21:14)
[2018-09-30] MEDS ORDERED: MAGNESIUM HYDROXIDE SUSP 30 ML UDCUP PO PRN (21:14)
[2018-09-30] MEDS ORDERED: MAG HYDROX/AL HYDROX/SIMETH SUSP 30 ML UDCUP PO PRN (21:14)
[2018-09-30] MEDS ORDERED: ONDANSETRON 4 MG TAB.RAPDIS PO PRN (21:14)
[2018-09-30] MEDS ORDERED: ACETAMINOPHEN 650 MG SUPP.RECT PR PRN (21:27)
[2018-09-30] MEDS ORDERED: ERTAPENEM SODIUM INJ 1 GM VIAL IV SCH (21:30)
[2018-09-30 21:43] LABS: VENOUS BLOOD BASE EXCESS 16.2 mmol/L; VENOUS BLOOD HCO3 48.6 mmol/L (20-32); VENOUS BLOOD PH 7.31 (7.30-7.42)
[2018-09-30 21:49] LABS: VENOUS BLOOD PCO2 98.7 mmHg (35-63)
[2018-09-30 21:52] LABS: INTERNATIONAL RATION (INR) 0.82; PROTHROMBIN TIME 11.7 SEC (11.4-15.4)
[2018-09-30] MEDS ORDERED: NICOTINE 21 MG/24 HR PATCH.TD24 TD PRN (21:59)
[2018-09-30] MEDS: ALBUTEROL SULFATE 0.083% NEB 2.5 MG/3 ML AMPUL NEB PRN (22:18)
[2018-09-30] MEDS: BUDESONIDE NEB 0.5 MG/2 ML AMPUL NEB SCH (22:21)
[2018-09-30] MEDS: ACETYLCYSTEINE 20% SOLN 800 MG/4 ML VIAL.NEB NEB SCH (22:21)
[2018-09-30] MEDS: FAMOTIDINE 20 MG TABLET PO SCH (22:34)
[2018-09-30] MEDS: HEPARIN SOD (PORCINE) 5,000 UNIT/ML 1 ML SYRINGE SUBCUT SCH (22:34)
[2018-09-30] MEDS ORDERED: ERTAPENEM SODIUM 1 GM in NORMAL SALINE 50 ML IV SCH (23:00)
[2018-09-30 23:44] LABS: CREATINE KINASE MB 0.99 ng/mL (<4.55)
[2018-09-30 23:45] LABS: TROPONIN I < 0.012 ng/mL
[2018-09-30 23:59] LABS: ARTERIAL BLOOD H2CO3 2.64 mmol/L (1.05-1.35); ARTERIAL BLOOD HCO3 43.6 mmol/L (20-24); ARTERIAL BLOOD O2 SATURATION 96.9 % (94-98); ARTERIAL BLOOD PH 7.31 (7.35-7.45); ARTERIAL BLOOD PO2 103.5 mmHg (80-100); ARTERIAL BLOOD TOTAL CO2 46.3 mmol/L (21-25)
--- NOTE | 2018-09-30 23:59 | PDOC H&P ---
History of Present Illness Admission Date/PCP: SUDARSHAN HAYS MD Patient complains of: Dyspnea History of Present Illness: AUDIE KIMBLE is a 58 year old female who presented to the emergency room with a one-week history of gradually worsening dyspnea (now severe), nonproductive cough (paroxysmal) and wheezing (now severe). She admits that her dyspnea, cough and wheezing have been accompanied by associated symptoms of lightheadedness, headache, right-sided chest discomfort/tightness and intermittent subjective fever. She admits that she continues to smoke cigarettes and smoking has been very difficult for the last day or 2 because it significantly aggravates her dyspnea and cough. She has been using her usual inhalers, oral prednisone and nebulizer treatments at home without improvement and she has not identified any ameliorating factors for her current symptoms. She further admits that she has had numerous similar episodes in the past due to her moderate to severe chronic obstructive pulmonary disease and chronic respiratory failure with hypoxia and hypercapnia. Her chronic obstructive pulmonary disease is oxygen dependent @ 4 L/min via nasal cannula on a continuous basis. In the emergency room she was found to have an elevated white count 14,300 and was noted to be tachypneic on her examination with significant increased work of breathing exemplified by extensive use of accessory muscles of respiration with significant subcostal retractions. Her venous PCO2 was critically elevated at 98.7. Her chest x-ray, as read by me, demonstrates small patchy areas of interstitial versus intra-alveolar infiltrates more prominent on the right than the left. Her overall clinical picture is of an acute exacerbation of COPD rather than a pneumonia and therefore she was admitted to IMCU with BiPAP and an aggressive pulmonary toilet with IV steroids and empiric antibiotics (while awaiting blood culture results). Past Medical History Cardiac Medical History: Reports: Congestive Heart Failure - Diastolic Denies: Atrial Fibrillation, DVT, Myocardial Infarction, Hyperlipidema, Hypertension, Pulmonary Embolism Pulmonary Medical History: Reports: Asthma, Bronchitis, Chronic Obstructive Pulmonary Disease (COPD) - home O2 & BIPAP-dependent, Intubation - Patient does not wish to be intubated again., Pneumonia, Respiratory Failure - Acute and chronic EENT Medical History: Reports: None Neurological Medical History: Reports: Migraine Denies: Seizures Endocrine Medical History: Denies: Diabetes Mellitus Type 1, Diabetes Mellitus Type 2, Hyperthyroidism, Hypothyroidism Renal/ Medical History: Denies: Chronic Kidney Disease, End Stage Renal Disease, Nephrolithiasis Malignancy Medical History: Reports: None GI Medical History: Reports: Gastroesophageal Reflux Disease Denies: Cirrhosis, Crohn's Disease, Hepatitis, Ulcerative Colitis Musculoskeltal Medical History: Reports: Arthritis Denies: Gout Skin Medical History: Denies: Eczema, Psoriasis Psychiatric Medical History: Reports: Tobacco Dependency Denies: Alcohol Dependency, Bipolar Disorder, Depression, Substance Abuse Traumatic Medical History: Reports: Pneumothorax - x4 R lung, 2010 when the patient had a right lung bx required a chest tube Denies: Gunshot Wound Hematology: Denies: Anemia, Hemophilia, Bleeding Tendencies Infectious Medical History: Reports: None Past Surgical History Past Surgical History: Reports: Hysterectomy, Tonsillectomy, Tubal Ligation Social History Information Source: Patient Lives with: Spouse/Significant other Smoking Status: Current Every Day Smoker Frequency of Alcohol Use: None Hx Recreational Drug Use: No Drugs: None Hx Prescription Drug Abuse: No - Advance Directive Resuscitation Status: Full Code Surrogate healthcare decision maker:: Spouse Family History Family History: Hyperlipidemia, Hypertension Parental Family History Reviewed: Yes Children Family History Reviewed: No Sibling(s) Family History Reviewed.: Yes Medication/Allergy Home Medications: Albuterol Sulfate [Proventil Hfa] 1 puff IH Q6HP PRN 08/04/18 Bisoprolol Fumarate [Zebeta 5 mg Tablet] 2.5 mg PO DAILY 08/04/18 Budesonide/Formoterol Fumarate [Symbicort HFA 160-4.5 mcg Inhaler 6 gm] 1 puff IH Q12 08/04/18 Ipratropium/Albuterol Sulfate [Iprat-Albut 0.5-3(2.5) mg/3 ml] 3 ml NEB Q4HP PRN 08/04/18 Levocetirizine Dihydrochloride [Xyzal] 5 mg PO DAILY 08/04/18 Montelukast Sodium [Singulair 10 mg Tablet] 10 mg PO QPM 08/04/18 Ondansetron HCl [Zofran 4 mg Tablet] 4 mg PO DAILYP PRN 08/04/18 Prednisone [Deltasone 10 mg Tablet] 10 mg PO DAILY 08/04/18 Roflumilast [Daliresp 500 mcg Tablet] 500 mcg PO DAILY 08/04/18 Ropinirole HCl [Requip] 0.5 mg PO BID 08/04/18 Tiotropium [place] [Spiriva Handihaler 5 Cap/Kit (18 Mcg/Cap)] 1 puff IH DAILY 08/04/18 Levothyroxine Sodium 25 mcg PO DAILY 30 Days #30 tablet 08/08/18 Varenicline Tartrate [Chantix 0.5 mg Tablet] 0.5 mg PO BID 09/30/18 Allergies/Adverse Reactions: doxepin [Doxepin] Allergy (Verified 09/30/18 16:24) Shortness of Breath, Swelling etodolac [Etodolac] Allergy (Verified 09/30/18 16:24) loratadine [Loratadine] Allergy (Verified 09/30/18 16:24) Shortness of Breath, Swelling meloxicam [Meloxicam] Allergy (Verified 09/30/18 16:24) Sulfa (Sulfonamide Antibiotics) Allergy (Verified 09/30/18 16:24) Shortness of Breath, Swelling Review of Systems Constitutional: ABSENT: anorexia, chills, fever(s) Eyes: ABSENT: visual disturbances, other - Ocular pain Ears: ABSENT: hearing changes, other - Ear pain Nose, Mouth, and Throat: ABSENT: mouth pain, sore throat Cardiovascular: PRESENT: dyspnea on exertion. ABSENT: chest pain, edema, orthropnea, palpitations Respiratory: PRESENT: cough, dyspnea. ABSENT: hemoptysis, sputum Gastrointestinal: PRESENT: abdominal pain Genitourinary: ABSENT: dysuria, hematuria Musculoskeletal: ABSENT: deformity, joint swelling Integumentary: ABSENT: pruritus, rash Neurological: ABSENT: confusion, convulsions, memory loss, syncope Psychiatric: ABSENT: anxiety, depression Endocrine: ABSENT: cold intolerance, heat intolerance Hematologic/Lymphatic: ABSENT: easy bleeding, easy bruising Physical Exam Vital Signs: Temp Pulse Resp BP Pulse Ox 98.6 F 107 H 24 H 109/63 98 09/30/18 16:27 09/30/18 16:27 09/30/18 16:27 09/30/18 16:27 09/30/18 19:34 Intake & Output 09/28/18 09/29/18 09/30/18 23:59 23:59 23:59 Weight 65 kg General appearance: PRESENT: no acute distress, cooperative, other - On BiPAP Head exam: PRESENT: atraumatic, normocephalic Eye exam: PRESENT: conjunctiva pink, EOMI. ABSENT: nystagmus, scleral icterus Ear exam: PRESENT: normal external ear exam. ABSENT: bleeding, drainage Mouth exam: PRESENT: neck supple, tongue midline Neck exam: ABSENT: JVD, thyromegaly, tracheal deviation Respiratory exam: PRESENT: accessory muscle use, chest wall tenderness - Right lateral chest wall tenderness to palpation is noted, decreased breath sounds - Mildly decreased breath sounds throughout all [place], prolonged expiratory phas - Moderately prolonged expiratory phase with poor air motion, retraction - Supraclavicular infraclavicular and subcostal retractions are noted, symmetrical , tachypnea, wheezes - Marked expiratory wheezing is present, other - On BiPAP. ABSENT: crackles, rales, rhonchi, stridor Cardiovascular exam: PRESENT: RRR, tachycardia. ABSENT: clicks, gallop, rubs Pulses: PRESENT: normal radial pulses, normal dorsalis pedis pul Vascular exam: PRESENT: normal capillary refill. ABSENT: pallor GI/Abdominal exam: PRESENT: normal bowel sounds, soft Rectal exam: PRESENT: deferred Extremities exam: ABSENT: joint swelling, pedal edema Musculoskeletal exam: PRESENT: full ROM, normal inspection Neurological exam: PRESENT: alert, oriented to person, oriented to place, oriented to time, oriented to situation, CN II-XII grossly intact. ABSENT: motor sensory deficit Psychiatric exam: PRESENT: appropriate affect, normal mood Skin exam: PRESENT: dry, intact, warm. ABSENT: jaundice, rash, urticaria Results Laboratory Results: 09/30/18 17:40 09/30/18 17:40 09/30/18 09/30/18 09/30/18 17:40 17:40 20:03 WBC 14.3 H RBC 3.93 Hgb 12.0 Hct 36.7 MCV 93 MCH 30.6 MCHC 32.8 RDW 14.9 H Plt Count 156 Seg Neutrophils % Not Reportable Lymphocytes % Not Reportable Monocytes % Not Reportable Eosinophils % Not Reportable Basophils % Not Reportable Absolute Neutrophils Not Reportable Absolute Lymphocytes Not Reportable Absolute Monocytes Not Reportable Absolute Eosinophils Not Reportable Absolute Basophils Not Reportable Sodium 146.6 H Potassium 3.8 Chloride 92 L Carbon Dioxide 46 H* Anion Gap 9 BUN 21 H Creatinine 0.43 L Est GFR ( Amer) > 60 Est GFR (Non-Af Amer) > 60 Glucose 122 H Calcium 9.3 Total Bilirubin 0.3 AST 13 L ALT 9 Alkaline Phosphatase 46 Total Protein 6.7 Albumin 4.2 Urine Color VARUN Urine Appearance CLOUDY Urine pH 5.0 Ur Specific [place] 1.040 Urine Protein 30 H Urine Glucose (UA) NEGATIVE Urine Ketones NEGATIVE Urine Blood NEGATIVE Urine Nitrite NEGATIVE Ur Leukocyte Esterase NEGATIVE Urine WBC (Auto) 2 Urine RBC (Auto) 8 09/30/18 09/30/18 17:40 17:40 Creatine Kinase < 20 L CK-MB (CK-2) 0.77 Troponin I < 0.012 Impressions: Chest X-Ray 09/30/18 16:55 IMPRESSION: Patchy bilateral airspace densities as noted above primarily in the right lower lung field most consistent with an acute process superimposed on chronic underlying changes. Other findings as noted above Assessment & Plan - Diagnosis (1) Acute respiratory failure with hypoxia and hypercapnia Is this a current diagnosis for this admission?: Yes Plan: Aggressive pulmonary toilet utilizing Xopenex, Atrovent, budesonide and albuterol nebulizers with IV steroids and supplemental oxygen utilizing BiPAP as needed for maintenance of good oxygen saturation during her acute phase where her increased work of breathing has jeopardized her ability to maintain her oxygen saturation. (2) COPD exacerbation Is this a current diagnosis for this admission?: Yes Plan: Patient will be treated with empiric antibiotic therapy as she was recently treated with Levaquin on an outpatient basis and has been on a declining dose of steroids. Invanz will be combined with doxycycline as empiric therapy and based upon the patient's response and results of blood cultures appropriate narrowing of scope of therapy will be determined. Patient is chronically dependent on supplemental oxygen utilizing 4 L/min via nasal cannula at home on a continuous basis. She may need to be considered for home BiPAP as her disease has continued to progress. Smoking cessation has again been discussed and counseled and she will be treated with Chantix and/or a nicotine patch to try to assist her in discontinuation of tobacco use. (3) Chronic diastolic CHF (congestive heart failure), NYHA class 1 Is this a current diagnosis for this admission?: Yes Plan: Patient will continue on her current heart failure therapeutic regiment and a NT -BNP pro will be obtained as well as clinical observations being made to assess the efficacy of her therapy. (4) Hypothyroidism Qualifiers: Hypothyroidism type: acquired Qualified Code(s): E03.9 - Hypothyroidism, unspecified Is this a current diagnosis for this admission?: Yes Plan: Continue current therapeutic regiment and assess thyroid profile to determine efficacy of current therapy. (5) Restless legs syndrome Is this a current diagnosis for this admission?: Yes Plan: Continue current therapeutic regiment and assess efficacy during this hospitalization. - Time Time Spent: 50 to 70 Minutes Critical Time spent with patient: Less than 15 minutes Smoking Cessation Education: 3 to 10 minutes Medications reviewed and adjusted accordingly: Yes Anticipated discharge: Home - Inpatient Certification Based on my medical assessment, after consideration of the patient's comorbidities, presenting symptoms, or acuity I expect that the services needed warrant INPATIENT care.: Yes I certify that my determination is in accordance with my understanding of Medicare's requirements for reasonable and necessary INPATIENT services [42 CFR 412.3e].: Yes Medical Necessity: Need Close Monitoring Due to Risk of Patient Decompensation, Need For IV Fluids, Need for Nebulizer Therapy and Monitoring of Response, Need for IV Antibiotics, Risk of Complication if Not Cared For in Hospital
[2018-10-01 00:05] LABS: ARTERIAL BLOOD FIO2 4L
[2018-10-01 00:06] LABS: ARTERIAL BLOOD PCO2 87.7 mmHg (35-45)
[2018-10-01] MEDS: IPRATROPIUM BROMIDE 0.02% NEB 0.5 MG/2.5 ML AMPUL NEB SCH ×4 (00:21→23:43)
[2018-10-01] MEDS: LEVALBUTEROL HCL NEB 1.25 MG/3 ML AMPUL NEB SCH ×4 (00:21→23:44)
[2018-10-01] MEDS: METHYLPREDNISOLONE INJ 40 MG/1 ML SDV IV SCH ×5 (00:40→23:19)
[2018-10-01] MEDS: POTASSI CL 20 MEQ/D5-1/2NS 1L 1,000 ML IV PRN ×3 (00:43→12:57)
[2018-10-01 06:07] LABS: HEMATOCRIT 31.1 % (36.0-47.0); HEMOGLOBIN 10.4 g/dL (12.0-15.5); MEAN CORPUSCULAR HEMOGLOBIN 30.8 pg (27.0-33.4); MEAN CORPUSCULAR HGB CONC 33.4 g/dL (32.0-36.0); MEAN CORPUSCULAR VOLUME 92 fl (80-97); PLATELET COUNT 113 10^3/uL (150-450); RED BLOOD COUNT 3.37 10^6/uL (3.72-5.28); RED CELL DISTRIBUTION WIDTH 14.8 % (11.5-14.0)
[2018-10-01 06:12] LABS: AMYLASE 34 U/L (30-110); BLOOD UREA NITROGEN 19 mg/dL (7-20); CALCIUM 8.4 mg/dL (8.4-10.2); CHLORIDE 94 mmol/L (98-107); GLUCOSE 161 mg/dL (75-110); LIPASE 28.5 U/L (23-300); POTASSIUM 4.1 mmol/L (3.6-5.0); SODIUM 143.3 mmol/L (137-145)
[2018-10-01 06:19] LABS: CREATINE KINASE MB 0.99 ng/mL (<4.55)
[2018-10-01 06:22] LABS: ANION GAP 7 (5-19); TROPONIN I < 0.012 ng/mL
[2018-10-01 06:23] LABS: CARBON DIOXIDE 42 mmol/L (22-30)
[2018-10-01 06:26] LABS: FREE T3 2.25 pg/mL (2.77-5.27); FREE T4 (FREE THYROXINE) 0.75 ng/dL (0.78-2.19)
[2018-10-01 06:35] LABS: ABSOLUTE MONOCYTES # (MANUAL) 0.1 10^3/uL (0.1-1.4); ABSOLUTE NEUTROPHILS# (MANUAL) 13.9 10^3/uL (1.7-8.2); BASOPHILS % (MANUAL) 0 % (0-2); EOSINOPHILS % (MANUAL) 0 % (0-6); LYMPHOCYTES % (MANUAL) 0 % (13-45); MONOCYTES % (MANUAL) 1 % (3-13); SEGMENTED NEUTROPHILS % (MAN) 99 % (42-78); TOTAL CELLS COUNTED 100
[2018-10-01 06:37] LABS: ANISOCYTOSIS SLIGHT; PLATELET COMMENT DECREASED; PLATELET LARGE PRESENT; POIKILOCYTOSIS SLIGHT; STOMATOCYTES SLIGHT
[2018-10-01 06:39] LABS: THYROID STIMULATING HORMONE 0.04 uIU/mL (0.47-4.68)
[2018-10-01] MEDS: HEPARIN SOD (PORCINE) 5,000 UNIT/ML 1 ML SYRINGE SUBCUT SCH ×3 (06:56→21:52)
[2018-10-01] MEDS: LEVOTHYROXINE SODIUM 0.025 MG TABLET PO SCH (06:57)
[2018-10-01 07:00] LABS: ARTERIAL BLOOD BASE EXCESS 20.3 mmol/L; ARTERIAL BLOOD H2CO3 2.47 mmol/L (1.05-1.35); ARTERIAL BLOOD HCO3 49.3 mmol/L (20-24); ARTERIAL BLOOD O2 SATURATION 90.3 % (94-98); ARTERIAL BLOOD TOTAL CO2 51.8 mmol/L (21-25)
[2018-10-01 07:01] LABS: ARTERIAL BLOOD FIO2 30%
[2018-10-01 07:03] LABS: ARTERIAL BLOOD PCO2 81.9 mmHg (35-45)
[2018-10-01] MEDS ORDERED: IPRATROPIUM/ALBUTEROL 0.5-2.5 MG/3 ML AMPUL NEB PRN (07:47)
[2018-10-01] MEDS ORDERED: ALBUTEROL SULFATE HFA (90 MCG/PUFF) 8 GM MDI (1 MDI/ER DISP) IH PRN (07:47)
[2018-10-01] MEDS: ACETYLCYSTEINE 20% SOLN 800 MG/4 ML VIAL.NEB NEB SCH ×2 (07:52→19:35)
[2018-10-01] MEDS: BUDESONIDE NEB 0.5 MG/2 ML AMPUL NEB SCH ×2 (07:53→19:36)
[2018-10-01] MEDS: DOXYCYCLINE HYCLATE 100 MG TABLET PO SCH ×2 (08:42→18:27)
[2018-10-01] MEDS: LANSOPRAZOLE 15 MG TAB.RAP.DR PO SCH (08:42)
--- NOTE | 2018-10-01 08:42 | PDOC PROGRESS REPORT ---
Subjective Progress Note for:: 10/01/18 Subjective:: 10/01/2018-58 years old female with history of COPD came to the emergency room with complaints of worsening shortness of breath nonproductive cough and wheezing. She was evaluated by the hospitalist Dr. Odonnell last night found to have a PCO2 of 98.7. Chest x-ray was questionable intra-alveolar infiltrates. Patient was placed on BiPAP. She was also started on Xopenex nebulizations, Atrovent, supplemental oxygen with BiPAP, IV steroids. Patient says she is slightly better. On examination patient is on BiPAP. The BiPAP settings are inspiratory pressure of 12 expiratory pressure of 5 respiratory rate of 14. On 30% oxygen. Complaining of cough requesting cough medication. Other than that no complaints. Reason For Visit: RIGHT LOWER LOBE PNEUMONIA,OBSTRUCTIVE CHRONIC Physical Exam Vital Signs: Temp Pulse Resp BP Pulse Ox 97.5 F 98 22 H 110/62 97 10/01/18 03:15 10/01/18 03:15 10/01/18 04:25 10/01/18 03:15 10/01/18 03:15 Intake & Output 09/30/18 10/01/18 10/02/18 06:59 06:59 06:59 Intake Total 1050 Balance 1050 Weight 72.1 kg General appearance: PRESENT: other - Moderate distress Head exam: PRESENT: atraumatic Eye exam: PRESENT: PERRLA Neck exam: ABSENT: carotid bruit, JVD, lymphadenopathy, thyromegaly Respiratory exam: PRESENT: other - Elevated air entry was severely decreased. Associated with extensive wheezing in both lung malik. Patient is on BiPAP she is a struggling in completing the sentences. Cardiovascular exam: PRESENT: tachycardia GI/Abdominal exam: PRESENT: normal bowel sounds, soft. ABSENT: distended, guarding, mass, organolmegaly, rebound, tenderness Extremities exam: PRESENT: full ROM. ABSENT: calf tenderness, clubbing, pedal edema Neurological exam: PRESENT: alert, awake, oriented to person, oriented to place , oriented to time, oriented to situation, CN II-XII grossly intact. ABSENT: motor sensory deficit Psychiatric exam: PRESENT: appropriate affect, normal mood. ABSENT: homicidal ideation, suicidal ideation Results Laboratory Results: 10/01/18 05:09 10/01/18 05:09 09/30/18 10/01/18 10/01/18 23:42 05:09 05:09 WBC 14.0 H RBC 3.37 L Hgb 10.4 L Hct 31.1 L MCV 92 MCH 30.8 MCHC 33.4 RDW 14.8 H Plt Count 113 L Seg Neutrophils % Not Reportable Lymphocytes % Not Reportable Monocytes % Not Reportable Eosinophils % Not Reportable Basophils % Not Reportable Absolute Neutrophils Not Reportable Absolute Lymphocytes Not Reportable Absolute Monocytes Not Reportable Absolute Eosinophils Not Reportable Absolute Basophils Not Reportable Carbonic Acid 2.64 H HCO3/H2CO3 Ratio 16:1 ABG pH 7.31 L ABG pCO2 87.7 H* ABG pO2 103.5 H ABG HCO3 43.6 H ABG O2 Saturation 96.9 ABG Base Excess 14.0 FiO2 4L Sodium 143.3 Potassium 4.1 Chloride 94 L Carbon Dioxide 42 H* Anion Gap 7 BUN 19 Creatinine 0.46 L Est GFR ( Amer) > 60 Est GFR (Non-Af Amer) > 60 Glucose 161 H Calcium 8.4 Magnesium 2.0 Amylase 34 Lipase 28.5 TSH Free T4 Free T3 pg/mL 10/01/18 10/01/18 05:09 06:45 WBC RBC Hgb Hct MCV MCH MCHC RDW Plt Count Seg Neutrophils % Lymphocytes % Monocytes % Eosinophils % Basophils % Absolute Neutrophils Absolute Lymphocytes Absolute Monocytes Absolute Eosinophils Absolute Basophils Carbonic Acid 2.47 H HCO3/H2CO3 Ratio 19:1 ABG pH 7.40 ABG pCO2 81.9 H* ABG pO2 62.0 L ABG HCO3 49.3 H ABG O2 Saturation 90.3 L ABG Base Excess 20.3 FiO2 30% Sodium Potassium Chloride Carbon Dioxide Anion Gap BUN Creatinine Est GFR ( Amer) Est GFR (Non-Af Amer) Glucose Calcium Magnesium Amylase Lipase TSH 0.04 L Free T4 0.75 L Free T3 pg/mL 2.25 L 09/30/18 09/30/18 10/01/18 22:54 22:54 05:09 Creatine Kinase 20 L < 20 L CK-MB (CK-2) 0.99 Troponin I < 0.012 NT-Pro-B Natriuret Pep 10/01/18 10/01/18 05:09 05:09 Creatine Kinase CK-MB (CK-2) 0.99 Troponin I < 0.012 NT-Pro-B Natriuret Pep 136 Impressions: Chest X-Ray 09/30/18 16:55 IMPRESSION: Patchy bilateral airspace densities as noted above primarily in the right lower lung field most consistent with an acute process superimposed on chronic underlying changes. Other findings as noted above Assessment & Plan - Diagnosis (1) Acute and chronic respiratory failure with hypercapnia Is this a current diagnosis for this admission?: Yes Plan: 09/30/2018 Aggressive pulmonary toilet utilizing Xopenex, Atrovent, budesonide and albuterol nebulizers with IV steroids and supplemental oxygen utilizing BiPAP as needed for maintenance of good oxygen saturation during her acute phase where her increased work of breathing has jeopardized her ability to maintain her oxygen saturation. 10/01/2018-patient was admitted with acute on chronic respiratory failure with hypercapnia secondary to COPD. Patient is on BiPAP with inspiratory pressure of 12 and expiratory pressure of 5 on 30% oxygen with a respiratory rate of 14. She states she is feeling little bit better. O2 in the emergency room is 98.7. It is on a Xopenex nebulizations Atrovent IV steroids oxygen supplementation with BiPAP. ABG today pH is 7.4/PCO2 82/PO2 62/bicarb is 49. Improved wheezing PCO2. I am going to request for I am going to request for pulmonary consult today. I am going to repeat the ABG tomorrow. (2) Right lower lobe pneumonia Qualifiers: Pneumonia type: due to unspecified organism Qualified Code(s): J18.1 - Lobar pneumonia, unspecified organism Is this a current diagnosis for this admission?: Yes Plan: 10/01/2018-chest x-ray done in the ER suggests right lower lobe pneumonia. Sputum cultures blood cultures are requested. He is afebrile temperature is 97.5. Patient's is on IV doxycycline and Invanz. We plan to continue the present management. (3) COPD exacerbation Is this a current diagnosis for this admission?: Yes Plan: 09/30/2018 Patient will be treated with empiric antibiotic therapy as she was recently treated with Levaquin on an outpatient basis and has been on a declining dose of steroids. Invanz will be combined with doxycycline as empiric therapy and based upon the patient's response and results of blood cultures appropriate narrowing of scope of therapy will be determined. Patient is chronically dependent on supplemental oxygen utilizing 4 L/min via nasal cannula at home on a continuous basis. She may need to be considered for home BiPAP as her disease has continued to progress. Smoking cessation has again been discussed and counseled and she will be treated with Chantix and/or a nicotine patch to try to assist her in discontinuation of tobacco use. 10/01/2018-patient has history of chronic severe COPD 4 L of oxygen at home. She is continued to smoke. Smoking counseling was provided for more than 10 minutes. Patient is on doxycycline and Invanz. Right lower lobe pneumonia may be the reason for sepsis COPD exacerbation. She may need a BiPAP at home, hopefully pulmonary team make some recommendations. Patient was started on nicotine patch. (4) Chronic diastolic CHF (congestive heart failure), NYHA class 1 Is this a current diagnosis for this admission?: Yes Plan: Patient will continue on her current heart failure therapeutic regiment and a NT -BNP pro will be obtained as well as clinical observations being made to assess the efficacy of her therapy. 10/01/2018-patient has history of chronic congestive heart failure. BNP is 136. Last echocardiogram was done in 2017, at that time left ventricular function is normal, with associated mild to moderate diastolic dysfunction. During the examination today there is no signs of fluid overload. Chest x-ray done yesterday does not show any cardiomegaly or pleural effusions. (5) Hypothyroidism Qualifiers: Hypothyroidism type: acquired Qualified Code(s): E03.9 - Hypothyroidism, unspecified Is this a current diagnosis for this admission?: Yes Plan: 10/01/2018-patient has history of hypothyroidism on levothyroxine. We plan to continue the present regimen. TSH is TSH is 0.04 T4 is 0.073 T3 is 2.25. Patient is on 25 mcg of levothyroxine. - Time Time Spent with patient: 15-24 minutes Smoking Cessation Education: over 10 minutes Medications reviewed and adjusted accordingly: Yes Anticipated discharge: Home
[2018-10-01] MEDS ORDERED: ALBUTEROL SULFATE HFA (90 MCG/PUFF) 200 PUFF/8.5 GM MDI IH PRN (09:18)
[2018-10-01] MEDS ORDERED: (PENDING PHARMACY ID) (Roflumilast [Daliresp 500 Mcg Tablet] 500 MCG) PO SCH (10:00)
[2018-10-01] MEDS ORDERED: CYANOCOBALAMIN (VITAMIN B-12) INJ 1000 MCG/1 ML VIAL IM SCH (10:00)
[2018-10-01] MEDS ORDERED: (PENDING PHARMACY ID) (Bisoprolol Fumarate [Zebeta 5 Mg Tablet] 2.5 MG) PO SCH (10:00)
[2018-10-01] MEDS ORDERED: (PENDING PHARMACY ID) (Ropinirole Hcl [Requip] 0.5 MG) PO SCH (10:00)
--- NOTE | 2018-10-01 10:04 | EKG REPORT ---
SEVERITY:- OTHERWISE NORMAL ECG - SINUS TACHYCARDIA : Confirmed by: Shana Greene MD 01-Oct-2018 10:02:26
[2018-10-01] MEDS: ASPIRIN 81 MG TABLET, ENT COATED PO SCH (10:55)
[2018-10-01] MEDS: FAMOTIDINE 20 MG TABLET PO SCH ×2 (10:56→21:58)
[2018-10-01] MEDS: GUAIFENESIN 600 MG TABLET.SA PO SCH ×2 (10:56→21:57)
[2018-10-01] MEDS: DOCUSATE SODIUM 100 MG CAPSULE PO SCH ×2 (10:56→18:27)
[2018-10-01] MEDS: VARENICLINE TARTRATE 0.5 MG TABLET PO SCH ×2 (10:56→18:26)
[2018-10-01] MEDS: ROPINIROLE HCL 0.25 MG TABLET PO SCH ×2 (10:57→18:27)
[2018-10-01] MEDS: ROFLUMILAST 500 MCG TABLET PO SCH (10:57)
[2018-10-01] MEDS: BUDESONIDE/FORMOTEROL 160-4.5 MCG 60 PUFF/6 GM MDI IH SCH ×2 (10:58→21:58)
[2018-10-01] MEDS: CETIRIZINE 5 MG TABLET PO SCH (10:58)
[2018-10-01] MEDS: TIOTROPIUM BROMIDE DPI 5 CAP/KIT (18 MCG/CAP) IH SCH (10:59)
--- NOTE | 2018-10-01 12:06 | PDOC CONSULTATION ---
Consultation Consult Date: 10/01/18 Attending physician:: [facility] DRAKE Consult reason:: Acute on chronic respiratory failure History of Present Illness Admission Date/PCP: 09/30/18 21:40 SUDARSHAN HAYS MD History of Present Illness: AUDIE KIMBLE is a 58 year old female known to [facility] for past episodes of respiratory failure is chronically been on oxygen and is also on a trilogy at home and a [id number] history but allegedly has not smoked in the last 5 years she had 3 days of progressively increasing shortness of breath and a nonproductive cough prior to presenting to the ER where at that point which point she could not very she returned in the ER she was given several nebulizers this was apparently loosened up the phlegm and allowed her to cough and breathe again she denies hemoptysis PPD status is unknown no history of chronic lung disease child or adolescent to being exposed to large amount of passive smoke as a child as well as an adult Past Medical History Cardiac Medical History: Reports: Congestive Heart Failure - Diastolic Denies: Atrial Fibrillation, DVT, Myocardial Infarction, Hyperlipidema, Hypertension, Pulmonary Embolism Pulmonary Medical History: Reports: Asthma, Bronchitis, Chronic Obstructive Pulmonary Disease (COPD) - home O2 & BIPAP-dependent, Intubation - Patient does not wish to be intubated again., Pneumonia, Respiratory Failure - Acute and chronic EENT Medical History: Reports: None Neurological Medical History: Reports: Migraine Denies: Seizures Endocrine Medical History: Denies: Diabetes Mellitus Type 1, Diabetes Mellitus Type 2, Hyperthyroidism, Hypothyroidism Renal/ Medical History: Denies: Chronic Kidney Disease, End Stage Renal Disease, Nephrolithiasis Malignancy Medical History: Reports: None GI Medical History: Reports: Gastroesophageal Reflux Disease Denies: Cirrhosis, Crohn's Disease, Hepatitis, Ulcerative Colitis Musculoskeltal Medical History: Reports: Arthritis Denies: Gout Skin Medical History: Denies: Eczema, Psoriasis Psychiatric Medical History: Reports: Tobacco Dependency Denies: Alcohol Dependency, Bipolar Disorder, Depression, Substance Abuse Traumatic Medical History: Reports: Pneumothorax - x4 R lung, 2010 when the patient had a right lung bx required a chest tube Denies: Gunshot Wound Hematology: Denies: Anemia, Hemophilia, Bleeding Tendencies Infectious Medical History: Reports: None Past Surgical History Past Surgical History: Reports: Hysterectomy, Tonsillectomy, Tubal Ligation Social History Lives with: Spouse/Significant other Smoking Status: Current Every Day Smoker Last Time Smoked: 09/27/18 Frequency of Alcohol Use: None Hx Recreational Drug Use: No Drugs: None Hx Prescription Drug Abuse: No Do you have pets?: No Have you had any respiratory illnesses as a child?: No Have you been exposed to any sick contacts recently?: No Have you had any recent respiratory illnesses?: No Have you travelled outside of [place] in the past 12 months?: No - Advance Directive Resuscitation Status: Do Not Intubate Family History Family History: Hyperlipidemia, Hypertension Parental Family History Reviewed: Yes Children Family History Reviewed: Yes Sibling(s) Family History Reviewed.: Yes Medication/Allergy Home Medications: Albuterol Sulfate [Proventil Hfa] 1 puff IH Q6HP PRN 08/04/18 Bisoprolol Fumarate [Zebeta 5 mg Tablet] 2.5 mg PO DAILY 08/04/18 Budesonide/Formoterol Fumarate [Symbicort HFA 160-4.5 mcg Inhaler 6 gm] 1 puff IH Q12 08/04/18 Ipratropium/Albuterol Sulfate [Iprat-Albut 0.5-3(2.5) mg/3 ml] 3 ml NEB Q4HP PRN 08/04/18 Levocetirizine Dihydrochloride [Xyzal] 5 mg PO DAILY 08/04/18 Montelukast Sodium [Singulair 10 mg Tablet] 10 mg PO QPM 08/04/18 Ondansetron HCl [Zofran 4 mg Tablet] 4 mg PO DAILYP PRN 08/04/18 Prednisone [Deltasone 10 mg Tablet] 10 mg PO DAILY 08/04/18 Roflumilast [Daliresp 500 mcg Tablet] 500 mcg PO DAILY 08/04/18 Ropinirole HCl [Requip] 0.5 mg PO QHS 08/04/18 Tiotropium [place] [Spiriva Handihaler 5 Cap/Kit (18 Mcg/Cap)] 1 puff IH DAILY 08/04/18 Levothyroxine Sodium 25 mcg PO DAILY 30 Days #30 tablet 08/08/18 Varenicline Tartrate [Chantix 0.5 mg Tablet] 0.5 mg PO BID 09/30/18 Aspirin [Ecotrin 81 mg EC Tablet] 162 mg PO DAILY 10/01/18 Budesonide/Formoterol Fumarate [Symbicort Hfa 160-4.5 Mcg Inhaler 6 gm] 2 puff IH Q12 10/01/18 Cyanocobalamin (Vitamin B-12) [Vitamin B-12 Inj 1000 Mcg/1 ml Vial] 1,000 mcg IM .MONTHLY 10/01/18 Gabapentin [Neurontin 100 mg Capsule] 100 mg PO QHS 10/01/18 Omeprazole 20 mg PO DAILY 10/01/18 Tiotropium [place] [Spiriva Handihaler 5 Cap/Kit (18 Mcg/Cap)] 1 cap IH DAILY Allergies/Adverse Reactions: doxepin [Doxepin] Allergy (Verified 09/30/18 16:24) Shortness of Breath, Swelling etodolac [Etodolac] Allergy (Verified 09/30/18 16:24) loratadine [Loratadine] Allergy (Verified 09/30/18 16:24) Shortness of Breath, Swelling meloxicam [Meloxicam] Allergy (Verified 09/30/18 16:24) Sulfa (Sulfonamide Antibiotics) Allergy (Verified 09/30/18 16:24) Shortness of Breath, Swelling Review of Systems Constitutional: PRESENT: chills, fever(s) Eyes: ABSENT: visual disturbances Ears: ABSENT: hearing changes Nose, Mouth, and Throat: ABSENT: sore throat Cardiovascular: PRESENT: dyspnea on exertion. ABSENT: edema, orthropnea, palpitations Gastrointestinal: PRESENT: nausea. ABSENT: abdominal pain, coffee ground emesis , dysphagia, hematemesis, hematochezia, melena, vomiting Integumentary: ABSENT: pruritus, rash Neurological: ABSENT: abnormal gait, abnormal movements, abnormal speech, confusion, focal weakness, frequent falls, lack of coordination, memory loss Psychiatric: ABSENT: hallucinations, homidical ideation, suicidal ideation Endocrine: ABSENT: cold intolerance, heat intolerance, polydipsia, polyuria Hematologic/Lymphatic: ABSENT: lymphadenopathy Allergic/Immunologic: ABSENT: seasonal rhinorrhea Physical Exam Vital Signs: Temp Pulse Resp BP Pulse Ox 98.0 F 99 22 H 117/70 99 10/01/18 08:32 10/01/18 08:32 10/01/18 08:32 10/01/18 08:32 10/01/18 08:32 Intake & Output 09/30/18 10/01/18 10/02/18 06:59 06:59 06:59 Intake Total 1050 Balance 1050 Weight 72.1 kg General appearance: PRESENT: no acute distress, cooperative, disheveled Head exam: PRESENT: atraumatic, normocephalic Eye exam: PRESENT: conjunctiva pale, EOMI. ABSENT: nystagmus, periorbital swelling Mouth exam: PRESENT: dry mucosa, neck supple, tongue midline Neck exam: ABSENT: carotid bruit, JVD, lymphadenopathy, thyromegaly, tracheal deviation, tracheostomy Respiratory exam: PRESENT: decreased breath sounds, prolonged expiratory phas, rhonchi, unlabored, wheezes. ABSENT: retraction, stridor Cardiovascular exam: PRESENT: RRR, +S1, +S2 Pulses: PRESENT: normal radial pulses GI/Abdominal exam: PRESENT: soft. ABSENT: tenderness Extremities exam: ABSENT: calf tenderness, clubbing, joint swelling, pedal edema Musculoskeletal exam: ABSENT: deformity, dislocation Neurological exam: PRESENT: alert, awake Psychiatric exam: PRESENT: appropriate affect Skin exam: PRESENT: dry, warm Results Laboratory Results: 10/01/18 05:09 10/01/18 05:09 09/30/18 10/01/18 10/01/18 23:42 05:09 05:09 WBC 14.0 H RBC 3.37 L Hgb 10.4 L Hct 31.1 L MCV 92 MCH 30.8 MCHC 33.4 RDW 14.8 H Plt Count 113 L Seg Neutrophils % Not Reportable Lymphocytes % Not Reportable Monocytes % Not Reportable Eosinophils % Not Reportable Basophils % Not Reportable Absolute Neutrophils Not Reportable Absolute Lymphocytes Not Reportable Absolute Monocytes Not Reportable Absolute Eosinophils Not Reportable Absolute Basophils Not Reportable Carbonic Acid 2.64 H HCO3/H2CO3 Ratio 16:1 ABG pH 7.31 L ABG pCO2 87.7 H* ABG pO2 103.5 H ABG HCO3 43.6 H ABG O2 Saturation 96.9 ABG Base Excess 14.0 FiO2 4L Sodium 143.3 Potassium 4.1 Chloride 94 L Carbon Dioxide 42 H* Anion Gap 7 BUN 19 Creatinine 0.46 L Est GFR ( Amer) > 60 Est GFR (Non-Af Amer) > 60 Glucose 161 H Calcium 8.4 Magnesium 2.0 Amylase 34 Lipase 28.5 TSH Free T4 Free T3 pg/mL 10/01/18 10/01/18 05:09 06:45 WBC RBC Hgb Hct MCV MCH MCHC RDW Plt Count Seg Neutrophils % Lymphocytes % Monocytes % Eosinophils % Basophils % Absolute Neutrophils Absolute Lymphocytes Absolute Monocytes Absolute Eosinophils Absolute Basophils Carbonic Acid 2.47 H HCO3/H2CO3 Ratio 19:1 ABG pH 7.40 ABG pCO2 81.9 H* ABG pO2 62.0 L ABG HCO3 49.3 H ABG O2 Saturation 90.3 L ABG Base Excess 20.3 FiO2 30% Sodium Potassium Chloride Carbon Dioxide Anion Gap BUN Creatinine Est GFR ( Amer) Est GFR (Non-Af Amer) Glucose Calcium Magnesium Amylase Lipase TSH 0.04 L Free T4 0.75 L Free T3 pg/mL 2.25 L 09/30/18 09/30/18 10/01/18 22:54 22:54 05:09 Creatine Kinase 20 L < 20 L CK-MB (CK-2) 0.99 Troponin I < 0.012 NT-Pro-B Natriuret Pep 10/01/18 10/01/18 05:09 05:09 Creatine Kinase CK-MB (CK-2) 0.99 Troponin I < 0.012 NT-Pro-B Natriuret Pep 136 Impressions: Chest X-Ray 09/30/18 16:55 IMPRESSION: Patchy bilateral airspace densities as noted above primarily in the right lower lung field most consistent with an acute process superimposed on chronic underlying changes. Other findings as noted above Assessment & Plan - Diagnosis (1) Right lower lobe pneumonia Qualifiers: Pneumonia type: due to unspecified organism Qualified Code(s): J18.1 - Lobar pneumonia, unspecified organism Is this a current diagnosis for this admission?: Yes Plan: Strong radiographic evidence support (2) Acute respiratory failure with hypoxia and hypercapnia Is this a current diagnosis for this admission?: Yes Plan: Oxygen supplemental BiPAP was trilogy is not allowed in the hospital (3) [id number] deficiency Is this a current diagnosis for this admission?: Yes Plan: Review dated to substantiate this diagnosis
[2018-10-01 12:12] LABS: CREATINE KINASE MB 1.72 ng/mL (<4.55)
[2018-10-01 12:13] LABS: TROPONIN I < 0.012 ng/mL
[2018-10-01] MEDS: ATENOLOL 50 MG TABLET PO SCH (12:15)
[2018-10-01] MEDS: ACETAMINOPHEN 325 MG TABLET PO PRN (14:22)
[2018-10-01] MEDS: MONTELUKAST SODIUM 10 MG TABLET PO SCH (18:27)
[2018-10-01] MEDS: ALBUTEROL SULFATE 0.083% NEB 2.5 MG/3 ML AMPUL NEB PRN (19:36)
[2018-10-01] MEDS: GABAPENTIN 100 MG CAPSULE PO SCH (21:57)
[2018-10-01] MEDS: ERTAPENEM SODIUM 1 GM in NORMAL SALINE 50 ML IV SCH (21:59)
[2018-10-02] MEDS: POTASSI CL 20 MEQ/D5-1/2NS 1L 1,000 ML IV PRN (01:34)
[2018-10-02 04:58] LABS: HEMATOCRIT 31.6 % (36.0-47.0); HEMOGLOBIN 10.6 g/dL (12.0-15.5); MEAN CORPUSCULAR HEMOGLOBIN 31.4 pg (27.0-33.4); MEAN CORPUSCULAR HGB CONC 33.7 g/dL (32.0-36.0); MEAN CORPUSCULAR VOLUME 93 fl (80-97); PLATELET COUNT 116 10^3/uL (150-450); RED BLOOD COUNT 3.39 10^6/uL (3.72-5.28); RED CELL DISTRIBUTION WIDTH 14.5 % (11.5-14.0)
[2018-10-02 05:26] LABS: ALANINE AMINOTRANSFERASE 10 U/L (9-52); ALBUMIN 3.6 g/dL (3.5-5.0); ALKALINE PHOSPHATASE 37 U/L (38-126); ASPARTATE AMINO TRANSFERASE 10 U/L (14-36); BILIRUBIN,DIRECT 0.3 mg/dL (0.0-0.4); BILIRUBIN,TOTAL 0.3 mg/dL (0.2-1.3); BLOOD UREA NITROGEN 16 mg/dL (7-20); CALCIUM 8.9 mg/dL (8.4-10.2); CHLORIDE 97 mmol/L (98-107); GLUCOSE 135 mg/dL (75-110); POTASSIUM 4.1 mmol/L (3.6-5.0); SODIUM 142.3 mmol/L (137-145); TOTAL PROTEIN 5.6 g/dL (6.3-8.2)
[2018-10-02] MEDS: LANSOPRAZOLE 15 MG TAB.RAP.DR PO SCH (05:26)
[2018-10-02] MEDS: METHYLPREDNISOLONE INJ 40 MG/1 ML SDV IV SCH (05:26)
[2018-10-02] MEDS: LEVOTHYROXINE SODIUM 0.025 MG TABLET PO SCH (05:26)
[2018-10-02 05:28] LABS: ABSOLUTE LYMPHOCYTES# (MANUAL) 0.3 10^3/uL (0.5-4.7); ABSOLUTE MONOCYTES # (MANUAL) 0.3 10^3/uL (0.1-1.4); ABSOLUTE NEUTROPHILS# (MANUAL) 10.3 10^3/uL (1.7-8.2); BASOPHILS % (MANUAL) 0 % (0-2); EOSINOPHILS % (MANUAL) 0 % (0-6); LYMPHOCYTES % (MANUAL) 3 % (13-45); MONOCYTES % (MANUAL) 3 % (3-13); PLATELET COMMENT DECREASED; RBC MORPHOLOGY COMMENT NORMO-CYTIC/CHROMIC; SEGMENTED NEUTROPHILS % (MAN) 94 % (42-78); TOTAL CELLS COUNTED 100
[2018-10-02] MEDS: HEPARIN SOD (PORCINE) 5,000 UNIT/ML 1 ML SYRINGE SUBCUT SCH ×3 (05:34→21:32)
[2018-10-02 05:39] LABS: CARBON DIOXIDE 41 mmol/L (22-30)
[2018-10-02 05:43] LABS: ANION GAP 4 (5-19)
[2018-10-02 05:51] LABS: ARTERIAL BLOOD H2CO3 2.33 mmol/L (1.05-1.35); ARTERIAL BLOOD HCO3 39.5 mmol/L (20-24); ARTERIAL BLOOD O2 SATURATION 59.5 % (94-98); ARTERIAL BLOOD PH 7.33 (7.35-7.45); ARTERIAL BLOOD TOTAL CO2 41.9 mmol/L (21-25)
[2018-10-02 05:53] LABS: ARTERIAL BLOOD FIO2 3.5; ARTERIAL BLOOD PCO2 77.5 mmHg (35-45); ARTERIAL BLOOD PO2 34.9 mmHg (80-100)
[2018-10-02 06:56] LABS: ARTERIAL BLOOD BASE EXCESS 15.4 mmol/L; ARTERIAL BLOOD H2CO3 2.15 mmol/L (1.05-1.35); ARTERIAL BLOOD HCO3 43.2 mmol/L (20-24); ARTERIAL BLOOD O2 SATURATION 96.9 % (94-98); ARTERIAL BLOOD PO2 94.5 mmHg (80-100); ARTERIAL BLOOD TOTAL CO2 45.4 mmol/L (21-25)
[2018-10-02 06:57] LABS: ARTERIAL BLOOD FIO2 3.5
[2018-10-02 06:58] LABS: ARTERIAL BLOOD PCO2 71.5 mmHg (35-45)
[2018-10-02] MEDS: LEVALBUTEROL HCL NEB 1.25 MG/3 ML AMPUL NEB SCH ×2 (07:49→15:44)
[2018-10-02] MEDS: BUDESONIDE NEB 0.5 MG/2 ML AMPUL NEB SCH ×2 (07:49→19:32)
[2018-10-02] MEDS: ACETYLCYSTEINE 20% SOLN 800 MG/4 ML VIAL.NEB NEB SCH ×2 (07:50→19:32)
[2018-10-02] MEDS: IPRATROPIUM BROMIDE 0.02% NEB 0.5 MG/2.5 ML AMPUL NEB SCH ×2 (07:50→15:44)
[2018-10-02] MEDS: DOXYCYCLINE HYCLATE 100 MG TABLET PO SCH ×2 (08:49→17:17)
[2018-10-02] MEDS ORDERED: CYANOCOBALAMIN (VITAMIN B-12) INJ 1000 MCG/1 ML VIAL IM ONE (10:00)
[2018-10-02] MEDS: ACETAMINOPHEN 325 MG TABLET PO PRN ×2 (10:08→17:15)
[2018-10-02] MEDS: GUAIFENESIN 600 MG TABLET.SA PO SCH ×2 (10:11→21:31)
[2018-10-02] MEDS: ASPIRIN 81 MG TABLET, ENT COATED PO SCH (10:11)
[2018-10-02] MEDS: DOCUSATE SODIUM 100 MG CAPSULE PO SCH ×2 (10:11→17:16)
[2018-10-02] MEDS: PREDNISONE 20 MG TABLET PO SCH (10:11)
[2018-10-02] MEDS: FAMOTIDINE 20 MG TABLET PO SCH ×2 (10:11→21:32)
[2018-10-02] MEDS: ROPINIROLE HCL 0.25 MG TABLET PO SCH ×2 (10:12→17:17)
[2018-10-02] MEDS: VARENICLINE TARTRATE 0.5 MG TABLET PO SCH ×2 (10:12→17:17)
[2018-10-02] MEDS: ROFLUMILAST 500 MCG TABLET PO SCH (10:12)
[2018-10-02] MEDS: TIOTROPIUM BROMIDE DPI 5 CAP/KIT (18 MCG/CAP) IH SCH (10:12)
[2018-10-02] MEDS: ATENOLOL 50 MG TABLET PO SCH (10:14)
[2018-10-02] MEDS: BUDESONIDE/FORMOTEROL 160-4.5 MCG 60 PUFF/6 GM MDI IH SCH ×2 (10:14→21:31)
[2018-10-02] MEDS: CETIRIZINE 5 MG TABLET PO SCH (10:18)
--- NOTE | 2018-10-02 11:07 | PDOC PROGRESS REPORT ---
Subjective Progress Note for:: 10/02/18 Subjective:: 10/01/2018-58 years old female with history of COPD came to the emergency room with complaints of worsening shortness of breath nonproductive cough and wheezing. She was evaluated by the hospitalist Dr. Odonnell last night found to have a PCO2 of 98.7. Chest x-ray was questionable intra-alveolar infiltrates. Patient was placed on BiPAP. She was also started on Xopenex nebulizations, Atrovent, supplemental oxygen with BiPAP, IV steroids. Patient says she is slightly better. On examination patient is on BiPAP. The BiPAP settings are inspiratory pressure of 12 expiratory pressure of 5 respiratory rate of 14. On 30% oxygen. Complaining of cough requesting cough medication. Other than that no complaints. 10/02/2018 patient is comfortably sitting in the past she is still mild shortness of breath she is on 3.5 L of oxygen. Patient states she is feeling little bit better today. Patient states she uses trilogy at home for COPD. Acute events in the last 24 hours. Reason For Visit: ACUTE EXACERBATION OF COPD, ACURE ON CHRONIC Physical Exam Vital Signs: Temp Pulse Resp BP Pulse Ox 98.7 F 95 22 H 126/65 H 96 10/02/18 08:23 10/02/18 08:23 10/02/18 08:23 10/02/18 08:23 10/02/18 08:23 Intake & Output 10/01/18 10/02/18 10/03/18 06:59 06:59 06:59 Intake Total 1050 3358 1000 Output Total 300 Balance 1050 3058 1000 Weight 72.1 kg 75.8 kg General appearance: PRESENT: mild distress Head exam: PRESENT: atraumatic Eye exam: PRESENT: PERRLA Mouth exam: PRESENT: moist Neck exam: ABSENT: carotid bruit, JVD, lymphadenopathy, thyromegaly Respiratory exam: PRESENT: decreased breath sounds, wheezes Cardiovascular exam: PRESENT: tachycardia GI/Abdominal exam: PRESENT: normal bowel sounds, soft. ABSENT: distended, guarding, mass, organolmegaly, rebound, tenderness Extremities exam: PRESENT: full ROM. ABSENT: calf tenderness, clubbing, pedal edema Neurological exam: PRESENT: alert, awake, oriented to person, oriented to place , oriented to time, oriented to situation, CN II-XII grossly intact. ABSENT: motor sensory deficit Psychiatric exam: PRESENT: appropriate affect, normal mood. ABSENT: homicidal ideation, suicidal ideation Results Laboratory Results: 10/02/18 04:10 10/02/18 04:10 10/02/18 10/02/18 10/02/18 03:53 04:10 04:10 WBC 11.0 H RBC 3.39 L Hgb 10.6 L Hct 31.6 L MCV 93 MCH 31.4 MCHC 33.7 RDW 14.5 H Plt Count 116 L Seg Neutrophils % Not Reportable Lymphocytes % Not Reportable Monocytes % Not Reportable Eosinophils % Not Reportable Basophils % Not Reportable Absolute Neutrophils Not Reportable Absolute Lymphocytes Not Reportable Absolute Monocytes Not Reportable Absolute Eosinophils Not Reportable Absolute Basophils Not Reportable Carbonic Acid 2.33 H HCO3/H2CO3 Ratio 16:1 ABG pH 7.33 L ABG pCO2 77.5 H* ABG pO2 34.9 L* ABG HCO3 39.5 H ABG O2 Saturation 59.5 L ABG Base Excess 11.0 FiO2 3.5 Sodium 142.3 Potassium 4.1 Chloride 97 L Carbon Dioxide 41 H* Anion Gap 4 L BUN 16 Creatinine 0.49 L Est GFR ( Amer) > 60 Est GFR (Non-Af Amer) > 60 Glucose 135 H Calcium 8.9 Magnesium 2.1 Total Bilirubin 0.3 AST 10 L ALT 10 Alkaline Phosphatase 37 L Total Protein 5.6 L Albumin 3.6 10/02/18 06:40 WBC RBC Hgb Hct MCV MCH MCHC RDW Plt Count Seg Neutrophils % Lymphocytes % Monocytes % Eosinophils % Basophils % Absolute Neutrophils Absolute Lymphocytes Absolute Monocytes Absolute Eosinophils Absolute Basophils Carbonic Acid 2.15 H HCO3/H2CO3 Ratio 20:1 ABG pH 7.40 ABG pCO2 71.5 H* ABG pO2 94.5 ABG HCO3 43.2 H ABG O2 Saturation 96.9 ABG Base Excess 15.4 FiO2 3.5 Sodium Potassium Chloride Carbon Dioxide Anion Gap BUN Creatinine Est GFR ( Amer) Est GFR (Non-Af Amer) Glucose Calcium Magnesium Total Bilirubin AST ALT Alkaline Phosphatase Total Protein Albumin 09/30/18 09/30/18 10/01/18 22:54 22:54 05:09 Creatine Kinase 20 L < 20 L CK-MB (CK-2) 0.99 Troponin I < 0.012 NT-Pro-B Natriuret Pep 10/01/18 10/01/18 10/01/18 05:09 05:09 11:22 Creatine Kinase 31 CK-MB (CK-2) 0.99 Troponin I < 0.012 NT-Pro-B Natriuret Pep 136 10/01/18 11:22 Creatine Kinase CK-MB (CK-2) 1.72 Troponin I < 0.012 NT-Pro-B Natriuret Pep Impressions: Chest X-Ray 09/30/18 16:55 IMPRESSION: Patchy bilateral airspace densities as noted above primarily in the right lower lung field most consistent with an acute process superimposed on chronic underlying changes. Other findings as noted above Assessment & Plan - Diagnosis (1) Acute and chronic respiratory failure with hypercapnia Is this a current diagnosis for this admission?: Yes Plan: 09/30/2018 Aggressive pulmonary toilet utilizing Xopenex, Atrovent, budesonide and albuterol nebulizers with IV steroids and supplemental oxygen utilizing BiPAP as needed for maintenance of good oxygen saturation during her acute phase where her increased work of breathing has jeopardized her ability to maintain her oxygen saturation. 10/01/2018-patient was admitted with acute on chronic respiratory failure with hypercapnia secondary to COPD. Patient is on BiPAP with inspiratory pressure of 12 and expiratory pressure of 5 on 30% oxygen with a respiratory rate of 14. She states she is feeling little bit better. O2 in the emergency room is 98.7. It is on a Xopenex nebulizations Atrovent IV steroids oxygen supplementation with BiPAP. ABG today pH is 7.4/PCO2 82/PO2 62/bicarb is 49. Improved wheezing PCO2. I am going to request for I am going to request for pulmonary consult today. I am going to repeat the ABG tomorrow. 10/02/2018-patient has chronic history of COPD admitted with acute on chronic respiratory failure with hypoxia and hypercapnia. 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 Patient is on 3.5 L of oxygen pulse ox is 95%. She uses trilogy for COPD at home. Patient is on albuterol sulfate 1 puff every 6 hours as needed, budesonide/formoterol fumarate 1 puff every 12, ipratropium/ albuterol sulfate 3 mL every 4 as needed, montelukast 10 mg in the morning prednisone 40 mg p.o. daily Spiriva 1 puff daily. Patient is getting Xopenex nebulizations every 8 hours. Continue the present management. Patient's wishes she does not want to be intubated she is clearly said she wanted resuscitation but not intubation. So she is going to be DNI. (2) Right lower lobe pneumonia Qualifiers: Pneumonia type: due to unspecified organism Qualified Code(s): J18.1 - Lobar pneumonia, unspecified organism Is this a current diagnosis for this admission?: Yes Plan: 10/01/2018-chest x-ray done in the ER suggests right lower lobe pneumonia. Sputum cultures blood cultures are requested. He is afebrile temperature is 97.5. Patient's is on IV doxycycline and Invanz. We plan to continue the present management. 10/02/2018 chest x-ray indicated right lower lobe pneumonia. Patient is on doxycycline and Invanz. Blood cultures are negative so far. Urine cultures is pending. We will continue the present management. Patient is afebrile. (3) COPD exacerbation Is this a current diagnosis for this admission?: Yes Plan: 09/30/2018 Patient will be treated with empiric antibiotic therapy as she was recently treated with Levaquin on an outpatient basis and has been on a declining dose of steroids. Invanz will be combined with doxycycline as empiric therapy and based upon the patient's response and results of blood cultures appropriate narrowing of scope of therapy will be determined. Patient is chronically dependent on supplemental oxygen utilizing 4 L/min via nasal cannula at home on a continuous basis. She may need to be considered for home BiPAP as her disease has continued to progress. Smoking cessation has again been discussed and counseled and she will be treated with Chantix and/or a nicotine patch to try to assist her in discontinuation of tobacco use. 10/01/2018-patient has history of chronic severe COPD 4 L of oxygen at home. She is continued to smoke. Smoking counseling was provided for more than 10 minutes. Patient is on doxycycline and Invanz. Right lower lobe pneumonia may be the reason for sepsis COPD exacerbation. She may need a BiPAP at home, hopefully pulmonary team make some recommendations. Patient was started on nicotine patch. 10/02/2018 patient history of chronic COPD secondary to alpha 1 antitrypsin deficiency. She is also chronic smoker. She uses 4 L of oxygen at home. She uses trilogy at home for COPD. (4) Chronic diastolic CHF (congestive heart failure), NYHA class 1 Is this a current diagnosis for this admission?: Yes Plan: Patient will continue on her current heart failure therapeutic regiment and a NT -BNP pro will be obtained as well as clinical observations being made to assess the efficacy of her therapy. 10/01/2018-patient has history of chronic congestive heart failure. BNP is 136. Last echocardiogram was done in 2016, at that time left ventricular function is normal, with associated mild to moderate diastolic dysfunction. During the examination today there is no signs of fluid overload. Chest x-ray done yesterday does not show any cardiomegaly or pleural effusions. 10/02/2018 patient has history of chronic congestive heart failure. Echocardiogram from last year indicates normal left for left ventricular function. With mild to moderate diastolic dysfunction. On examination no evidence of fluid overload. Chest does not show any cardiomegaly or pleural effusions. (5) Hypothyroidism Qualifiers: Hypothyroidism type: acquired Qualified Code(s): E03.9 - Hypothyroidism, unspecified Is this a current diagnosis for this admission?: Yes Plan: 10/01/2018-patient has history of hypothyroidism on levothyroxine. We plan to continue the present regimen. TSH is TSH is 0.04 T4 is 0.073 T3 is 2.25. Patient is on 25 mcg of levothyroxine. - Time Time Spent with patient: 15-24 minutes Smoking Cessation Education: over 10 minutes Medications reviewed and adjusted accordingly: Yes Anticipated discharge: Home
[2018-10-02] MEDS: ALBUTEROL SULFATE 0.083% NEB 2.5 MG/3 ML AMPUL NEB PRN ×2 (12:58→19:32)
[2018-10-02] MEDS: MONTELUKAST SODIUM 10 MG TABLET PO SCH (17:15)
[2018-10-02] MEDS: ERTAPENEM SODIUM 1 GM in NORMAL SALINE 50 ML IV SCH (21:22)
[2018-10-02] MEDS: GABAPENTIN 100 MG CAPSULE PO SCH (21:31)
[2018-10-03] MEDS: IPRATROPIUM BROMIDE 0.02% NEB 0.5 MG/2.5 ML AMPUL NEB SCH ×4 (00:06→23:52)
[2018-10-03] MEDS: LEVALBUTEROL HCL NEB 1.25 MG/3 ML AMPUL NEB SCH ×4 (00:06→23:52)
[2018-10-03] MEDS: ACETAMINOPHEN 325 MG TABLET PO PRN ×2 (00:25→16:33)
[2018-10-03 05:25] LABS: ABSOLUTE LYMPHOCYTES (AUTO) 0.7 10^3/uL (0.5-4.7); ABSOLUTE MONOCYTES (AUTO) 0.5 10^3/uL (0.1-1.4); ABSOLUTE NEUT (AUTO) 7.8 10^3/uL (1.7-8.2); BASOPHILS % (AUTO) 0.1 % (0-2); EOSINOPHILS % (AUTO) 0.1 % (0-6); HEMATOCRIT 29.2 % (36.0-47.0); HEMOGLOBIN 9.9 g/dL (12.0-15.5); LYMPHOCYTES % (AUTO) 7.3 % (13-45); MEAN CORPUSCULAR HEMOGLOBIN 31.3 pg (27.0-33.4); MEAN CORPUSCULAR HGB CONC 33.8 g/dL (32.0-36.0); MEAN CORPUSCULAR VOLUME 93 fl (80-97); MONOCYTES % (AUTO) 5.2 % (3-13); RED BLOOD COUNT 3.15 10^6/uL (3.72-5.28); RED CELL DISTRIBUTION WIDTH 14.6 % (11.5-14.0); SEGMENTED NEUTROPHILS % (AUTO) 87.3 % (42-78); TOTAL CELLS COUNTED % (AUTO) 100 %
[2018-10-03] MEDS: LEVOTHYROXINE SODIUM 0.025 MG TABLET PO SCH (05:49)
[2018-10-03] MEDS: LANSOPRAZOLE 15 MG TAB.RAP.DR PO SCH (05:49)
[2018-10-03 05:50] LABS: BLOOD UREA NITROGEN 18 mg/dL (7-20); CALCIUM 8.4 mg/dL (8.4-10.2); GLUCOSE 87 mg/dL (75-110)
[2018-10-03 05:56] LABS: CARBON DIOXIDE 39 mmol/L (22-30); CHLORIDE 99 mmol/L (98-107); SODIUM 139.7 mmol/L (137-145)
[2018-10-03 05:58] LABS: ANION GAP 2 (5-19)
[2018-10-03 06:23] LABS: ARTERIAL BLOOD BASE EXCESS 15.4 mmol/L; ARTERIAL BLOOD H2CO3 2.17 mmol/L (1.05-1.35); ARTERIAL BLOOD HCO3 43.2 mmol/L (20-24); ARTERIAL BLOOD O2 SATURATION 97.8 % (94-98); ARTERIAL BLOOD PO2 110.4 mmHg (80-100); ARTERIAL BLOOD TOTAL CO2 45.4 mmol/L (21-25)
[2018-10-03 06:24] LABS: ARTERIAL BLOOD FIO2 3.5L
[2018-10-03 06:25] LABS: ARTERIAL BLOOD PCO2 72.2 mmHg (35-45)
[2018-10-03 06:26] LABS: PLATELET COUNT 79 10^3/uL (150-450)
[2018-10-03] MEDS: HEPARIN SOD (PORCINE) 5,000 UNIT/ML 1 ML SYRINGE SUBCUT SCH (06:27)
[2018-10-03] MEDS: BUDESONIDE NEB 0.5 MG/2 ML AMPUL NEB SCH ×2 (08:13→19:27)
[2018-10-03] MEDS: ACETYLCYSTEINE 20% SOLN 800 MG/4 ML VIAL.NEB NEB SCH ×2 (08:14→19:27)
[2018-10-03] MEDS: DOXYCYCLINE HYCLATE 100 MG TABLET PO SCH ×2 (08:58→16:33)
[2018-10-03] MEDS: ROPINIROLE HCL 0.25 MG TABLET PO SCH ×2 (09:09→17:34)
[2018-10-03] MEDS: CETIRIZINE 5 MG TABLET PO SCH (09:09)
--- NOTE | 2018-10-03 09:09 | PDOC PROGRESS REPORT ---
Subjective Progress Note for:: 10/03/18 Subjective:: 10/01/2018-58 years old female with history of COPD came to the emergency room with complaints of worsening shortness of breath nonproductive cough and wheezing. She was evaluated by the hospitalist Dr. Odonnell last night found to have a PCO2 of 98.7. Chest x-ray was questionable intra-alveolar infiltrates. Patient was placed on BiPAP. She was also started on Xopenex nebulizations, Atrovent, supplemental oxygen with BiPAP, IV steroids. Patient says she is slightly better. On examination patient is on BiPAP. The BiPAP settings are inspiratory pressure of 12 expiratory pressure of 5 respiratory rate of 14. On 30% oxygen. Complaining of cough requesting cough medication. Other than that no complaints. 10/02/2018 patient is comfortably sitting in the past she is still mild shortness of breath she is on 3.5 L of oxygen. Patient states she is feeling little bit better today. Patient states she uses trilogy at home for COPD. Acute events in the last 24 hours. patient is on 3 and a liters nasal oxygen via nasal cannula All 2017 patient is comfortably sitting in the bed on treatment of liters oxygen via nasal cannula pulse ox 94-98%. Patient is saying she is not using trilogy at at home for a long time because it is given the bloating sensation in the abdomen. She does not know the settings of trilogy at home be going to talk to Dr. Nagy for his recommendations. Other than that she is doing well. Afebrile. The platelet count dropped from 150-79 today and she is not getting getting any heparin as per the hospital protocol but still platelet count is dropping I am going to request input from the hematology. Patient also denies any bruising says he denies any hemoptysis denies any blood in the urine. Reason For Visit: ACUTE EXACERBATION OF COPD, ACURE ON CHRONIC Physical Exam Vital Signs: Temp Pulse Resp BP Pulse Ox 97.8 F 86 16 121/65 100 10/03/18 07:28 10/03/18 07:28 10/03/18 07:28 10/03/18 07:28 10/03/18 07:28 Intake & Output 10/02/18 10/03/18 10/04/18 06:59 06:59 06:59 Intake Total 3358 2325 Output Total 300 Balance 3058 2325 Weight 75.8 kg 75.8 kg General appearance: PRESENT: no acute distress Head exam: PRESENT: atraumatic Eye exam: PRESENT: PERRLA Mouth exam: PRESENT: moist Neck exam: ABSENT: carotid bruit, JVD, lymphadenopathy, thyromegaly Respiratory exam: PRESENT: decreased breath sounds Cardiovascular exam: PRESENT: RRR. ABSENT: diastolic murmur, rubs, systolic murmur GI/Abdominal exam: PRESENT: normal bowel sounds, soft. ABSENT: distended, guarding, mass, organolmegaly, rebound, tenderness Neurological exam: PRESENT: alert, awake, oriented to person, oriented to place , oriented to time, oriented to situation, CN II-XII grossly intact. ABSENT: motor sensory deficit Psychiatric exam: PRESENT: appropriate affect, normal mood. ABSENT: homicidal ideation, suicidal ideation Results Laboratory Results: 10/03/18 04:04 10/03/18 04:04 10/03/18 10/03/18 10/03/18 04:04 04:04 06:10 WBC 9.0 RBC 3.15 L Hgb 9.9 L Hct 29.2 L MCV 93 MCH 31.3 MCHC 33.8 RDW 14.6 H Plt Count 79 L Seg Neutrophils % 87.3 H Lymphocytes % 7.3 L Monocytes % 5.2 Eosinophils % 0.1 Basophils % 0.1 Absolute Neutrophils 7.8 Absolute Lymphocytes 0.7 Absolute Monocytes 0.5 Absolute Eosinophils 0.0 Absolute Basophils 0.0 Carbonic Acid 2.17 H HCO3/H2CO3 Ratio 19:1 ABG pH 7.40 ABG pCO2 72.2 H* ABG pO2 110.4 H ABG HCO3 43.2 H ABG O2 Saturation 97.8 ABG Base Excess 15.4 FiO2 3.5L Sodium 139.7 Potassium 4.0 Chloride 99 Carbon Dioxide 39 H Anion Gap 2 L BUN 18 Creatinine 0.46 L Est GFR ( Amer) > 60 Est GFR (Non-Af Amer) > 60 Glucose 87 Calcium 8.4 Magnesium 2.1 09/30/18 09/30/18 10/01/18 22:54 22:54 05:09 Creatine Kinase 20 L < 20 L CK-MB (CK-2) 0.99 Troponin I < 0.012 NT-Pro-B Natriuret Pep 10/01/18 10/01/18 10/01/18 05:09 05:09 11:22 Creatine Kinase 31 CK-MB (CK-2) 0.99 Troponin I < 0.012 NT-Pro-B Natriuret Pep 136 10/01/18 11:22 Creatine Kinase CK-MB (CK-2) 1.72 Troponin I < 0.012 NT-Pro-B Natriuret Pep Impressions: Chest X-Ray 09/30/18 16:55 IMPRESSION: Patchy bilateral airspace densities as noted above primarily in the right lower lung field most consistent with an acute process superimposed on chronic underlying changes. Other findings as noted above Assessment & Plan - Diagnosis (1) Acute and chronic respiratory failure with hypercapnia Is this a current diagnosis for this admission?: Yes Plan: 09/30/2018 Aggressive pulmonary toilet utilizing Xopenex, Atrovent, budesonide and albuterol nebulizers with IV steroids and supplemental oxygen utilizing BiPAP as needed for maintenance of good oxygen saturation during her acute phase where her increased work of breathing has jeopardized her ability to maintain her oxygen saturation. 10/01/2018-patient was admitted with acute on chronic respiratory failure with hypercapnia secondary to COPD. Patient is on BiPAP with inspiratory pressure of 12 and expiratory pressure of 5 on 30% oxygen with a respiratory rate of 14. She states she is feeling little bit better. O2 in the emergency room is 98.7. It is on a Xopenex nebulizations Atrovent IV steroids oxygen supplementation with BiPAP. ABG today pH is 7.4/PCO2 82/PO2 62/bicarb is 49. Improved wheezing PCO2. I am going to request for I am going to request for pulmonary consult today. I am going to repeat the ABG tomorrow. 10/02/2018-patient has chronic history of COPD admitted with acute on chronic respiratory failure with hypoxia and hypercapnia. 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 Patient is on 3.5 L of oxygen pulse ox is 95%. She uses trilogy for COPD at home. Patient is on albuterol sulfate 1 puff every 6 hours as needed, budesonide/formoterol fumarate 1 puff every 12, ipratropium/ albuterol sulfate 3 mL every 4 as needed, montelukast 10 mg in the morning prednisone 40 mg p.o. daily Spiriva 1 puff daily. Patient is getting Xopenex nebulizations every 8 hours. Continue the present management. Patient's wishes she does not want to be intubated she is clearly said she wanted resuscitation but not intubation. So she is going to be DNI. 10/03/2018-patient is DNI. Admitted for acute on chronic respiratory failure with hypoxia, hypercapnia. Urgency room PCO2 is 98.7. Follow-up ABGs shows improvement in CO2. Patient is on 3-1/2 L oxygen with pulse ox of 96%, she is using trilogy as needed, getting albuterol sulfate 1 puff every 6 hours as needed, budesonide/formoterol fumarate 1 puff every 12 hours, ipratropium/ albuterol sulfate 3 mL every 4 hours as needed, montelukast 10 mg in the morning , prednisone 40 mg daily, Spiriva 1 puff daily. She is also getting Xopenex nebulizations every 8 hours. 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 (2) Right lower lobe pneumonia Qualifiers: Pneumonia type: due to unspecified organism Qualified Code(s): J18.1 - Lobar pneumonia, unspecified organism Is this a current diagnosis for this admission?: Yes Plan: 10/01/2018-chest x-ray done in the ER suggests right lower lobe pneumonia. Sputum cultures blood cultures are requested. He is afebrile temperature is 97.5. Patient's is on IV doxycycline and Invanz. We plan to continue the present management. 10/02/2018 chest x-ray indicated right lower lobe pneumonia. Patient is on doxycycline and Invanz. Blood cultures are negative so far. Urine cultures is pending. We will continue the present management. Patient is afebrile. 10/03/2018 -patient is on doxycycline and Invanz for right lower lobe pneumonia. Blood cultures are negative. Urine culture shows mixed urogenital solange. She is afebrile in the last 48 hours. Fortunately sputum cultures not sent. May be she is unable to spit up any sputum. (3) COPD exacerbation Is this a current diagnosis for this admission?: Yes Plan: 09/30/2018 Patient will be treated with empiric antibiotic therapy as she was recently treated with Levaquin on an outpatient basis and has been on a declining dose of steroids. Invanz will be combined with doxycycline as empiric therapy and based upon the patient's response and results of blood cultures appropriate narrowing of scope of therapy will be determined. Patient is chronically dependent on supplemental oxygen utilizing 4 L/min via nasal cannula at home on a continuous basis. She may need to be considered for home BiPAP as her disease has continued to progress. Smoking cessation has again been discussed and counseled and she will be treated with Chantix and/or a nicotine patch to try to assist her in discontinuation of tobacco use. 10/01/2018-patient has history of chronic severe COPD 4 L of oxygen at home. She is continued to smoke. Smoking counseling was provided for more than 10 minutes. Patient is on doxycycline and Invanz. Right lower lobe pneumonia may be the reason for sepsis COPD exacerbation. She may need a BiPAP at home, hopefully pulmonary team make some recommendations. Patient was started on nicotine patch. 10/02/2018 patient history of chronic COPD secondary to alpha 1 antitrypsin deficiency. She is also chronic smoker. She uses 4 L of oxygen at home. She uses trilogy at home for COPD. 10/03/2018 patient has chronic COPD secondary to alpha-1 antitrypsin deficiency. She is also chronic smoker. She uses 4 L of oxygen at home. She is supposed to use her trilogy for COPD at home but she is not using it for long time (4) Chronic diastolic CHF (congestive heart failure), NYHA class 1 Is this a current diagnosis for this admission?: Yes Plan: Patient will continue on her current heart failure therapeutic regiment and a NT -BNP pro will be obtained as well as clinical observations being made to assess the efficacy of her therapy. 10/01/2018-patient has history of chronic congestive heart failure. BNP is 136. Last echocardiogram was done in 2017, at that time left ventricular function is normal, with associated mild to moderate diastolic dysfunction. During the examination today there is no signs of fluid overload. Chest x-ray done yesterday does not show any cardiomegaly or pleural effusions. 10/02/2018 patient has history of chronic congestive heart failure. Echocardiogram from last year indicates normal left for left ventricular function. With mild to moderate diastolic dysfunction. On examination no evidence of fluid overload. Chest does not show any cardiomegaly or pleural effusions. 10/03/2018 patient is not in fluid overload. We will continue the present management. (5) Hypothyroidism Qualifiers: Hypothyroidism type: acquired Qualified Code(s): E03.9 - Hypothyroidism, unspecified Is this a current diagnosis for this admission?: Yes - Time Time Spent with patient: 15-24 minutes Smoking Cessation Education: over 10 minutes Medications reviewed and adjusted accordingly: Yes Anticipated discharge: Home
[2018-10-03] MEDS: VARENICLINE TARTRATE 0.5 MG TABLET PO SCH ×2 (09:10→17:34)
[2018-10-03] MEDS: ATENOLOL 50 MG TABLET PO SCH (09:10)
[2018-10-03] MEDS: PREDNISONE 20 MG TABLET PO SCH (09:11)
[2018-10-03] MEDS: FAMOTIDINE 20 MG TABLET PO SCH ×2 (09:11→23:10)
[2018-10-03] MEDS: DOCUSATE SODIUM 100 MG CAPSULE PO SCH ×2 (09:11→17:43)
[2018-10-03] MEDS: GUAIFENESIN 600 MG TABLET.SA PO SCH ×2 (09:11→23:10)
[2018-10-03] MEDS: ROFLUMILAST 500 MCG TABLET PO SCH (09:11)
[2018-10-03] MEDS: ASPIRIN 81 MG TABLET, ENT COATED PO SCH (09:11)
[2018-10-03] MEDS: BUDESONIDE/FORMOTEROL 160-4.5 MCG 60 PUFF/6 GM MDI IH SCH ×2 (09:12→23:10)
[2018-10-03] MEDS: TIOTROPIUM BROMIDE DPI 5 CAP/KIT (18 MCG/CAP) IH SCH (09:12)
[2018-10-03] MEDS: ALBUTEROL SULFATE 0.083% NEB 2.5 MG/3 ML AMPUL NEB PRN ×2 (13:47→19:27)
[2018-10-03] MEDS: ENOXAPARIN SODIUM INJ 40 MG/0.4 ML DISP.SYRIN SUBCUT SCH (13:52)
[2018-10-03] MEDS: MONTELUKAST SODIUM 10 MG TABLET PO SCH (17:34)
[2018-10-03] MEDS: ERTAPENEM SODIUM 1 GM in NORMAL SALINE 50 ML IV SCH (23:09)
[2018-10-03] MEDS: GABAPENTIN 100 MG CAPSULE PO SCH (23:10)
[2018-10-04] MEDS: ACETAMINOPHEN 325 MG TABLET PO PRN ×2 (00:42→10:23)
[2018-10-04] MEDS: LEVOTHYROXINE SODIUM 0.025 MG TABLET PO SCH (05:47)
[2018-10-04] MEDS: LANSOPRAZOLE 15 MG TAB.RAP.DR PO SCH (05:47)
[2018-10-04 05:58] LABS: ABSOLUTE LYMPHOCYTES (AUTO) 0.8 10^3/uL (0.5-4.7); ABSOLUTE MONOCYTES (AUTO) 0.4 10^3/uL (0.1-1.4); ABSOLUTE NEUT (AUTO) 5.9 10^3/uL (1.7-8.2); EOSINOPHILS % (AUTO) 0.2 % (0-6); HEMATOCRIT 29.2 % (36.0-47.0); HEMOGLOBIN 9.8 g/dL (12.0-15.5); LYMPHOCYTES % (AUTO) 11.3 % (13-45); MEAN CORPUSCULAR HEMOGLOBIN 31.1 pg (27.0-33.4); MEAN CORPUSCULAR HGB CONC 33.6 g/dL (32.0-36.0); MEAN CORPUSCULAR VOLUME 93 fl (80-97); MONOCYTES % (AUTO) 5.4 % (3-13); PLATELET COUNT 104 10^3/uL (150-450); RED BLOOD COUNT 3.16 10^6/uL (3.72-5.28); RED CELL DISTRIBUTION WIDTH 14.8 % (11.5-14.0); SEGMENTED NEUTROPHILS % (AUTO) 83.1 % (42-78); TOTAL CELLS COUNTED % (AUTO) 100 %; WHITE BLOOD COUNT 7.1 10^3/uL (4.0-10.5)
[2018-10-04] MEDS: BUDESONIDE NEB 0.5 MG/2 ML AMPUL NEB SCH ×2 (07:50→20:03)
[2018-10-04] MEDS: IPRATROPIUM BROMIDE 0.02% NEB 0.5 MG/2.5 ML AMPUL NEB SCH ×2 (07:50→16:03)
[2018-10-04] MEDS: LEVALBUTEROL HCL NEB 1.25 MG/3 ML AMPUL NEB SCH ×2 (07:50→16:03)
[2018-10-04] MEDS: ACETYLCYSTEINE 20% SOLN 800 MG/4 ML VIAL.NEB NEB SCH ×2 (07:50→20:03)
--- NOTE | 2018-10-04 08:37 | PDOC CONSULTATION ---
Consultation Consult Date: 10/04/18 Consult reason:: Hematology/Oncology consultation was requested for patient with thrombocytopenia. 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 She states that she has been admitted 3 times this past year for dyspnea/pneumonia. She states that she can always tell when her back starts hurting and she gets a headache that it's time to go the hospital again. She was admitted with dyspnea and started on nebulizer treatments and Bi-PAP. Her baseline PLT count on admission was 156. Yesterday, it dropped to 79. Patient denies ever having been told in the past that she had a low PLT count. However, her past admission, in April, it dropped to 94 and then recovered. She denies any bleeding issues. No new unusual bruising. Today, she report that she still has a headache. She continues her breathing treatments. Past Medical History Cardiac Medical History: Reports: Congestive Heart Failure - Diastolic Denies: Atrial Fibrillation, DVT, Myocardial Infarction, Hyperlipidema, Hypertension, Pulmonary Embolism Pulmonary Medical History: Reports: Asthma, Bronchitis, Chronic Obstructive Pulmonary Disease (COPD) - home O2 & BIPAP-dependent, Intubation - Patient does not wish to be intubated again., Pneumonia, Respiratory Failure - Acute and chronic, Other - Collapsed lungs. She is a carrier for [id number] EENT Medical History: Reports: None Neurological Medical History: Reports: Migraine Denies: Seizures Endocrine Medical History: Denies: Diabetes Mellitus Type 1, Diabetes Mellitus Type 2, Hyperthyroidism, Hypothyroidism Renal/ Medical History: Denies: Chronic Kidney Disease, End Stage Renal Disease, Nephrolithiasis Malignancy Medical History: Reports: None GI Medical History: Reports: Gastroesophageal Reflux Disease Denies: Cirrhosis, Crohn's Disease, Hepatitis, Ulcerative Colitis Musculoskeltal Medical History: Reports: Arthritis Denies: Gout Skin Medical History: Denies: Eczema, Psoriasis Psychiatric Medical History: Reports: Tobacco Dependency Denies: Alcohol Dependency, Bipolar Disorder, Depression, Substance Abuse Traumatic Medical History: Reports: Pneumothorax - x4 R lung, 2010 when the patient had a right lung bx required a chest tube Denies: Gunshot Wound Hematology: Denies: Anemia, Hemophilia, Bleeding Tendencies Infectious Medical History: Reports: None Past Surgical History Past Surgical History: Reports: Hysterectomy, Tonsillectomy, Tubal Ligation, Other - Chest tubes for collapsed lungs Social History Information Source: Patient Lives with: Spouse/Significant other Smoking Status: Current Every Day Smoker Last Time Smoked: 09/27/18 Frequency of Alcohol Use: None Hx Recreational Drug Use: No Drugs: None Hx Prescription Drug Abuse: No Past Social History Note: 2 children, 3 grandchildren. - Advance Directive Resuscitation Status: Do Not Intubate Family History Family History: Hyperlipidemia, Hypertension Parental Family History Reviewed: Yes - Mother with breast cancer. Aunt with Small cell Lung cancer.Father CVA HTN Children Family History Reviewed: Yes - Alpha 1 antitrypsin Sibling(s) Family History Reviewed.: Yes - Alpha 1 antitrypsin. Medication/Allergy Home Medications: Albuterol Sulfate [Proventil Hfa] 1 puff IH Q6HP PRN 08/04/18 Bisoprolol Fumarate [Zebeta 5 mg Tablet] 2.5 mg PO DAILY 08/04/18 Budesonide/Formoterol Fumarate [Symbicort HFA 160-4.5 mcg Inhaler 6 gm] 1 puff IH Q12 08/04/18 Ipratropium/Albuterol Sulfate [Iprat-Albut 0.5-3(2.5) mg/3 ml] 3 ml NEB Q4HP PRN 08/04/18 Levocetirizine Dihydrochloride [Xyzal] 5 mg PO DAILY 08/04/18 Montelukast Sodium [Singulair 10 mg Tablet] 10 mg PO QPM 08/04/18 Ondansetron HCl [Zofran 4 mg Tablet] 4 mg PO DAILYP PRN 08/04/18 Prednisone [Deltasone 10 mg Tablet] 10 mg PO DAILY 08/04/18 Roflumilast [Daliresp 500 mcg Tablet] 500 mcg PO DAILY 08/04/18 Ropinirole HCl [Requip] 0.5 mg PO QHS 08/04/18 Tiotropium [place] [Spiriva Handihaler 5 Cap/Kit (18 Mcg/Cap)] 1 puff IH DAILY 08/04/18 Levothyroxine Sodium 25 mcg PO DAILY 30 Days #30 tablet 08/08/18 Varenicline Tartrate [Chantix 0.5 mg Tablet] 0.5 mg PO BID 09/30/18 Aspirin [Ecotrin 81 mg EC Tablet] 162 mg PO DAILY 10/01/18 Budesonide/Formoterol Fumarate [Symbicort Hfa 160-4.5 Mcg Inhaler 6 gm] 2 puff IH Q12 10/01/18 Cyanocobalamin (Vitamin B-12) [Vitamin B-12 Inj 1000 Mcg/1 ml Vial] 1,000 mcg IM .MONTHLY 10/01/18 Gabapentin [Neurontin 100 mg Capsule] 100 mg PO QHS 10/01/18 Omeprazole 20 mg PO DAILY 10/01/18 Tiotropium [place] [Spiriva Handihaler 5 Cap/Kit (18 Mcg/Cap)] 1 cap IH DAILY Allergies/Adverse Reactions: doxepin [Doxepin] Allergy (Verified 09/30/18 16:24) Shortness of Breath, Swelling etodolac [Etodolac] Allergy (Verified 09/30/18 16:24) loratadine [Loratadine] Allergy (Verified 09/30/18 16:24) Shortness of Breath, Swelling meloxicam [Meloxicam] Allergy (Verified 09/30/18 16:24) Sulfa (Sulfonamide Antibiotics) Allergy (Verified 09/30/18 16:24) Shortness of Breath, Swelling Review of Systems Constitutional: PRESENT: headache(s) Eyes: PRESENT: visual disturbances Ears: ABSENT: hearing changes Nose, Mouth, and Throat: PRESENT: sore throat Cardiovascular: ABSENT: chest pain Respiratory: PRESENT: dyspnea Gastrointestinal: PRESENT: diarrhea. ABSENT: nausea Genitourinary: ABSENT: dysuria Musculoskeletal: ABSENT: joint swelling Integumentary: ABSENT: rash Neurological: ABSENT: abnormal speech, weakness Hematologic/Lymphatic: ABSENT: easy bruising, lymphadenopathy Physical Exam Vital Signs: Temp Pulse Resp BP Pulse Ox 98.3 F 78 31 H 115/50 L 97 10/04/18 03:12 10/04/18 03:12 10/04/18 03:12 10/04/18 03:12 10/04/18 03:12 Intake & Output 10/03/18 10/04/18 10/05/18 06:59 06:59 06:59 Intake Total 2325 1485 Balance 2325 1485 Weight 75.8 kg 76.5 kg General appearance: PRESENT: no acute distress Exam: Overweight, 58 year old female. Head exam: PRESENT: normocephalic Eye exam: PRESENT: EOMI, PERRLA Mouth exam: PRESENT: moist, tongue midline Neck exam: ABSENT: lymphadenopathy, tenderness Respiratory exam: PRESENT: wheezes Cardiovascular exam: PRESENT: other - Heart sound obscured. GI/Abdominal exam: PRESENT: soft. ABSENT: organolmegaly, tenderness Extremities exam: PRESENT: +1 edema - Bilateral ankles. Neurological exam: PRESENT: alert, awake Psychiatric exam: PRESENT: appropriate affect Focused psych exam: ABSENT: pressured speech, psychomotor agitation, restlessness Skin exam: PRESENT: other - echymoses over wrists. Results Laboratory Results: 10/04/18 05:04 10/03/18 04:04 10/04/18 05:04 WBC 7.1 RBC 3.16 L Hgb 9.8 L Hct 29.2 L MCV 93 MCH 31.1 MCHC 33.6 RDW 14.8 H Plt Count 104 L Seg Neutrophils % 83.1 H Lymphocytes % 11.3 L Monocytes % 5.4 Eosinophils % 0.2 Basophils % 0.0 Absolute Neutrophils 5.9 Absolute Lymphocytes 0.8 Absolute Monocytes 0.4 Absolute Eosinophils 0.0 Absolute Basophils 0.0 09/30/18 09/30/18 10/01/18 22:54 22:54 05:09 Creatine Kinase 20 L < 20 L CK-MB (CK-2) 0.99 Troponin I < 0.012 NT-Pro-B Natriuret Pep 10/01/18 10/01/18 10/01/18 05:09 05:09 11:22 Creatine Kinase 31 CK-MB (CK-2) 0.99 Troponin I < 0.012 NT-Pro-B Natriuret Pep 136 10/01/18 11:22 Creatine Kinase CK-MB (CK-2) 1.72 Troponin I < 0.012 NT-Pro-B Natriuret Pep Impressions: Chest X-Ray 09/30/18 16:55 IMPRESSION: Patchy bilateral airspace densities as noted above primarily in the right lower lung field most consistent with an acute process superimposed on chronic underlying changes. Other findings as noted above Status: Image reviewed by me Assessment & Plan - Diagnosis (1) COPD exacerbation Is this a current diagnosis for this admission?: Yes Plan: She is followed by Pulmonary and is currently receiving her nebulizer treatments. (2) Thrombocytopenia Is this a current diagnosis for this admission?: Yes Plan: This is mild and is already recovering. I did examine the peripheral blood smear today. There is no evidence of TTP. Estimated PLT count was 115. I believe this is most likely a reactive process due to the underlying COPD. I will continue to monitor. OK to use blood thinners/Lovenox for PLT >50. I have no objections to this currently. I will also follow her for CBC after discharge to make sure PLt count returns to normal. (3) Anemia Qualifiers: Other causes of anemia: chronic disease, other Is this a current diagnosis for this admission?: Yes Plan: Most likely anemia of chronic inflammation. This is also mild and stable. Will watch closely. Further work-up as outpatient if it does not resolve. - Plan Summary Plan Summary: Please call me with any questions or concerns.
--- NOTE | 2018-10-04 08:39 | PDOC PROGRESS REPORT ---
Subjective Progress Note for:: 10/04/18 Subjective:: 10/01/2018-58 years old female with history of COPD came to the emergency room with complaints of worsening shortness of breath nonproductive cough and wheezing. She was evaluated by the hospitalist Dr. Odonnell last night found to have a PCO2 of 98.7. Chest x-ray was questionable intra-alveolar infiltrates. Patient was placed on BiPAP. She was also started on Xopenex nebulizations, Atrovent, supplemental oxygen with BiPAP, IV steroids. Patient says she is slightly better. On examination patient is on BiPAP. The BiPAP settings are inspiratory pressure of 12 expiratory pressure of 5 respiratory rate of 14. On 30% oxygen. Complaining of cough requesting cough medication. Other than that no complaints. 10/02/2018 patient is comfortably sitting in the past she is still mild shortness of breath she is on 3.5 L of oxygen. Patient states she is feeling little bit better today. Patient states she uses trilogy at home for COPD. Acute events in the last 24 hours. patient is on 3 and a liters nasal oxygen via nasal cannula 10/03/2018 patient is comfortably sitting in the bed on treatment of liters oxygen via nasal cannula pulse ox 94-98%. Patient is saying she is not using trilogy at at home for a long time because it is given the bloating sensation in the abdomen. She does not know the settings of trilogy at home be going to talk to Dr. Nagy for his recommendations. Other than that she is doing well. Afebrile. The platelet count dropped from 150-79 today and she is not getting getting any heparin as per the hospital protocol but still platelet count is dropping I am going to request input from the hematology. Patient also denies any bruising says he denies any hemoptysis denies any blood in the urine. 10/04/2018-patient is comfortably in the chair talking to the family denies any complaints pulse ox is 97% on 3 L. She uses 4 L of oxygen at home. She is not using BiPAP anymore. The cultures are negative so far. The platelet count improved from 79 to 104. No acute events in the last 24 hours. Reason For Visit: ACUTE EXACERBATION OF COPD, ACURE ON CHRONIC Physical Exam Vital Signs: Temp Pulse Resp BP Pulse Ox 98.3 F 78 31 H 115/50 L 97 10/04/18 03:12 10/04/18 03:12 10/04/18 03:12 10/04/18 03:12 10/04/18 03:12 Intake & Output 10/03/18 10/04/18 10/05/18 06:59 06:59 06:59 Intake Total 2325 1485 Balance 2325 1485 Weight 75.8 kg 76.5 kg General appearance: PRESENT: no acute distress Head exam: PRESENT: atraumatic Eye exam: PRESENT: PERRLA Mouth exam: PRESENT: moist Neck exam: ABSENT: carotid bruit, JVD, lymphadenopathy, thyromegaly Respiratory exam: PRESENT: decreased breath sounds Cardiovascular exam: PRESENT: tachycardia GI/Abdominal exam: PRESENT: normal bowel sounds, soft. ABSENT: distended, guarding, mass, organolmegaly, rebound, tenderness Extremities exam: PRESENT: full ROM. ABSENT: calf tenderness, clubbing, pedal edema Neurological exam: PRESENT: alert, awake, oriented to person, oriented to place , oriented to time, oriented to situation, CN II-XII grossly intact. ABSENT: motor sensory deficit Results Laboratory Results: 10/04/18 05:04 10/03/18 04:04 10/04/18 05:04 WBC 7.1 RBC 3.16 L Hgb 9.8 L Hct 29.2 L MCV 93 MCH 31.1 MCHC 33.6 RDW 14.8 H Plt Count 104 L Seg Neutrophils % 83.1 H Lymphocytes % 11.3 L Monocytes % 5.4 Eosinophils % 0.2 Basophils % 0.0 Absolute Neutrophils 5.9 Absolute Lymphocytes 0.8 Absolute Monocytes 0.4 Absolute Eosinophils 0.0 Absolute Basophils 0.0 09/30/18 09/30/18 10/01/18 22:54 22:54 05:09 Creatine Kinase 20 L < 20 L CK-MB (CK-2) 0.99 Troponin I < 0.012 NT-Pro-B Natriuret Pep 10/01/18 10/01/18 10/01/18 05:09 05:09 11:22 Creatine Kinase 31 CK-MB (CK-2) 0.99 Troponin I < 0.012 NT-Pro-B Natriuret Pep 136 10/01/18 11:22 Creatine Kinase CK-MB (CK-2) 1.72 Troponin I < 0.012 NT-Pro-B Natriuret Pep Impressions: Chest X-Ray 09/30/18 16:55 IMPRESSION: Patchy bilateral airspace densities as noted above primarily in the right lower lung field most consistent with an acute process superimposed on chronic underlying changes. Other findings as noted above Assessment & Plan - Diagnosis (1) Acute and chronic respiratory failure with hypercapnia Is this a current diagnosis for this admission?: Yes Plan: 09/30/2018 Aggressive pulmonary toilet utilizing Xopenex, Atrovent, budesonide and albuterol nebulizers with IV steroids and supplemental oxygen utilizing BiPAP as needed for maintenance of good oxygen saturation during her acute phase where her increased work of breathing has jeopardized her ability to maintain her oxygen saturation. 10/01/2018-patient was admitted with acute on chronic respiratory failure with hypercapnia secondary to COPD. Patient is on BiPAP with inspiratory pressure of 12 and expiratory pressure of 5 on 30% oxygen with a respiratory rate of 14. She states she is feeling little bit better. O2 in the emergency room is 98.7. It is on a Xopenex nebulizations Atrovent IV steroids oxygen supplementation with BiPAP. ABG today pH is 7.4/PCO2 82/PO2 62/bicarb is 49. Improved wheezing PCO2. I am going to request for I am going to request for pulmonary consult today. I am going to repeat the ABG tomorrow. 10/02/2018-patient has chronic history of COPD admitted with acute on chronic respiratory failure with hypoxia and hypercapnia. 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 Patient is on 3.5 L of oxygen pulse ox is 95%. She uses trilogy for COPD at home. Patient is on albuterol sulfate 1 puff every 6 hours as needed, budesonide/formoterol fumarate 1 puff every 12, ipratropium/ albuterol sulfate 3 mL every 4 as needed, montelukast 10 mg in the morning prednisone 40 mg p.o. daily Spiriva 1 puff daily. Patient is getting Xopenex nebulizations every 8 hours. Continue the present management. Patient's wishes she does not want to be intubated she is clearly said she wanted resuscitation but not intubation. So she is going to be DNI. 10/03/2018-patient is DNI. Admitted for acute on chronic respiratory failure with hypoxia, hypercapnia. Urgency room PCO2 is 98.7. Follow-up ABGs shows improvement in CO2. Patient is on 3-1/2 L oxygen with pulse ox of 96%, she is using trilogy as needed, getting albuterol sulfate 1 puff every 6 hours as needed, budesonide/formoterol fumarate 1 puff every 12 hours, ipratropium/ albuterol sulfate 3 mL every 4 hours as needed, montelukast 10 mg in the morning , prednisone 40 mg daily, Spiriva 1 puff daily. She is also getting Xopenex nebulizations every 8 hours. 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 10/04/2018 patient is DNI. Admitted with acute on chronic respiratory failure with hypoxia and hypercapnia. The hypoxia hypercapnia resolved. 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 Exacerbation may be secondary to right lower lobe pneumonia. (2) Right lower lobe pneumonia Qualifiers: Qualified Code(s): J18.1 - Lobar pneumonia, unspecified organism Is this a current diagnosis for this admission?: Yes Plan: 10/01/2018-chest x-ray done in the ER suggests right lower lobe pneumonia. Sputum cultures blood cultures are requested. He is afebrile temperature is 97.5. Patient's is on IV doxycycline and Invanz. We plan to continue the present management. 10/02/2018 chest x-ray indicated right lower lobe pneumonia. Patient is on doxycycline and Invanz. Blood cultures are negative so far. Urine cultures is pending. We will continue the present management. Patient is afebrile. 10/03/2018 -patient is on doxycycline and Invanz for right lower lobe pneumonia. Blood cultures are negative. Urine culture shows mixed urogenital solange. She is afebrile in the last 48 hours. Fortunately sputum cultures not sent. May be she is unable to spit up any sputum. 10/04/2018 chest x-ray shows right lower lobe pneumonia. Patient is on doxycycline and Invanz. We will continue the present management today. Probably discharge home on p.o. antibiotics tomorrow. (3) COPD exacerbation Is this a current diagnosis for this admission?: Yes Plan: 09/30/2018 Patient will be treated with empiric antibiotic therapy as she was recently treated with Levaquin on an outpatient basis and has been on a declining dose of steroids. Invanz will be combined with doxycycline as empiric therapy and based upon the patient's response and results of blood cultures appropriate narrowing of scope of therapy will be determined. Patient is chronically dependent on supplemental oxygen utilizing 4 L/min via nasal cannula at home on a continuous basis. She may need to be considered for home BiPAP as her disease has continued to progress. Smoking cessation has again been discussed and counseled and she will be treated with Chantix and/or a nicotine patch to try to assist her in discontinuation of tobacco use. 10/01/2018-patient has history of chronic severe COPD 4 L of oxygen at home. She is continued to smoke. Smoking counseling was provided for more than 10 minutes. Patient is on doxycycline and Invanz. Right lower lobe pneumonia may be the reason for sepsis COPD exacerbation. She may need a BiPAP at home, hopefully pulmonary team make some recommendations. Patient was started on nicotine patch. 10/02/2018 patient history of chronic COPD secondary to alpha 1 antitrypsin deficiency. She is also chronic smoker. She uses 4 L of oxygen at home. She uses trilogy at home for COPD. 10/03/2018 patient has chronic COPD secondary to alpha-1 antitrypsin deficiency. She is also chronic smoker. She uses 4 L of oxygen at home. She is supposed to use her trilogy for COPD at home but she is not using it for long time 11/04/2017 patient has history of chronic COPD secondary to chronic smoking and also alpha-1 antitrypsin deficiency. Patient uses trilogy at home but she said she is not compliant with it. Then 4 L oxygen via nasal cannula at home. (4) Chronic diastolic CHF (congestive heart failure), NYHA class 1 Is this a current diagnosis for this admission?: Yes Plan: Patient will continue on her current heart failure therapeutic regiment and a NT -BNP pro will be obtained as well as clinical observations being made to assess the efficacy of her therapy. 10/01/2018-patient has history of chronic congestive heart failure. BNP is 136. Last echocardiogram was done in 2017, at that time left ventricular function is normal, with associated mild to moderate diastolic dysfunction. During the examination today there is no signs of fluid overload. Chest x-ray done yesterday does not show any cardiomegaly or pleural effusions. 10/02/2018 patient has history of chronic congestive heart failure. Echocardiogram from last year indicates normal left for left ventricular function. With mild to moderate diastolic dysfunction. On examination no evidence of fluid overload. Chest does not show any cardiomegaly or pleural effusions. 10/03/2018 patient is not in fluid overload. We will continue the present management. 2017 patient has history of congestive heart failure echocardiogram in shows normal left ventricular function. There is mild to moderate diastolic dysfunction. No signs of fluid overload. Will continue the present management. (5) Hypothyroidism Qualifiers: Qualified Code(s): E03.9 - Hypothyroidism, unspecified Is this a current diagnosis for this admission?: Yes - Time Time Spent with patient: Less than 15 minutes Smoking Cessation Education: over 10 minutes Medications reviewed and adjusted accordingly: Yes Anticipated discharge: Home
[2018-10-04] MEDS: PREDNISONE 20 MG TABLET PO SCH (10:24)
[2018-10-04] MEDS: FAMOTIDINE 20 MG TABLET PO SCH ×2 (10:24→21:26)
[2018-10-04] MEDS: ASPIRIN 81 MG TABLET, ENT COATED PO SCH (10:24)
[2018-10-04] MEDS: DOCUSATE SODIUM 100 MG CAPSULE PO SCH ×2 (10:24→19:24)
[2018-10-04] MEDS: GUAIFENESIN 600 MG TABLET.SA PO SCH ×2 (10:25→21:26)
[2018-10-04] MEDS: ROFLUMILAST 500 MCG TABLET PO SCH (10:26)
[2018-10-04] MEDS: ATENOLOL 50 MG TABLET PO SCH (10:26)
[2018-10-04] MEDS: VARENICLINE TARTRATE 0.5 MG TABLET PO SCH ×2 (10:26→18:22)
[2018-10-04] MEDS: CETIRIZINE 5 MG TABLET PO SCH (10:27)
[2018-10-04] MEDS: DOXYCYCLINE HYCLATE 100 MG TABLET PO SCH ×2 (10:27→18:23)
[2018-10-04] MEDS: ROPINIROLE HCL 0.25 MG TABLET PO SCH ×2 (10:29→18:22)
[2018-10-04] MEDS: ENOXAPARIN SODIUM INJ 40 MG/0.4 ML DISP.SYRIN SUBCUT SCH (10:30)
[2018-10-04] MEDS: TIOTROPIUM BROMIDE DPI 5 CAP/KIT (18 MCG/CAP) IH SCH (10:31)
[2018-10-04] MEDS: BUDESONIDE/FORMOTEROL 160-4.5 MCG 60 PUFF/6 GM MDI IH SCH ×2 (10:31→21:26)
[2018-10-04] MEDS: ALBUTEROL SULFATE 0.083% NEB 2.5 MG/3 ML AMPUL NEB PRN ×2 (13:43→20:03)
[2018-10-04] MEDS: MONTELUKAST SODIUM 10 MG TABLET PO SCH (18:20)
[2018-10-04] MEDS: GABAPENTIN 100 MG CAPSULE PO SCH (21:26)
[2018-10-05] MEDS: LEVALBUTEROL HCL NEB 1.25 MG/3 ML AMPUL NEB SCH ×2 (00:10→08:40)
[2018-10-05] MEDS: IPRATROPIUM BROMIDE 0.02% NEB 0.5 MG/2.5 ML AMPUL NEB SCH ×2 (00:10→08:40)
[2018-10-05] MEDS: ACETAMINOPHEN 325 MG TABLET PO PRN (05:14)
[2018-10-05] MEDS: LEVOTHYROXINE SODIUM 0.025 MG TABLET PO SCH (05:15)
[2018-10-05] MEDS: LANSOPRAZOLE 15 MG TAB.RAP.DR PO SCH (05:15)
[2018-10-05] MEDS: BUDESONIDE NEB 0.5 MG/2 ML AMPUL NEB SCH (08:40)
[2018-10-05] MEDS: ACETYLCYSTEINE 20% SOLN 800 MG/4 ML VIAL.NEB NEB SCH (08:41)
[2018-10-05] MEDS: DOCUSATE SODIUM 100 MG CAPSULE PO SCH (11:37)
[2018-10-05] MEDS: DOXYCYCLINE HYCLATE 100 MG TABLET PO SCH (11:37)
[2018-10-05] MEDS: VARENICLINE TARTRATE 0.5 MG TABLET PO SCH (11:37)
[2018-10-05] MEDS: ROFLUMILAST 500 MCG TABLET PO SCH (11:38)
[2018-10-05] MEDS: ASPIRIN 81 MG TABLET, ENT COATED PO SCH (11:38)
[2018-10-05] MEDS: ENOXAPARIN SODIUM INJ 40 MG/0.4 ML DISP.SYRIN SUBCUT SCH (11:39)
[2018-10-05] MEDS: FAMOTIDINE 20 MG TABLET PO SCH (11:40)
[2018-10-05] MEDS: GUAIFENESIN 600 MG TABLET.SA PO SCH (11:40)
[2018-10-05] MEDS: ATENOLOL 50 MG TABLET PO SCH (11:41)
[2018-10-05] MEDS: TIOTROPIUM BROMIDE DPI 5 CAP/KIT (18 MCG/CAP) IH SCH (11:41)
[2018-10-05] MEDS: ROPINIROLE HCL 0.25 MG TABLET PO SCH (11:41)
[2018-10-05] MEDS: BUDESONIDE/FORMOTEROL 160-4.5 MCG 60 PUFF/6 GM MDI IH SCH (11:41)
[2018-10-05] MEDS: CETIRIZINE 5 MG TABLET PO SCH (11:42)
[2018-10-05 13:12] VITALS: BP 108/60
--- NOTE | 2018-10-05 17:29 | PDOC DISCHARGE SUMMARY ---
General - Admit/Disc Date/PCP Admission Date/Primary Care Provider: 09/30/18 21:40 SUDARSHAN HAYS MD Discharge Date: 10/05/18 - Discharge Diagnosis (1) Acute and chronic respiratory failure with hypercapnia Is this a current diagnosis for this admission?: Yes Summary: Acute exacerbation is resolved; secondary to a right lower lobe pneumonia and COPD exacerbation. Of note, the patient is home O2 dependent and utilizes a trilogy machine nightly. Patient was admitted to [facility] on continuous cardiac telemetry and provided supplemental oxygen and BiPAP as needed to maintain oxygen saturations greater than 89%. She received aggressive pulmonary toilet utilizing scheduled and as needed nebulizer treatments including Pulmicort and Mucomyst. She was initially placed on IV Solu-Medrol, which has been successfully weaned, and twice daily Mucinex. The patient's respiratory status gradually improved. Her hypoxia and hypercapnia have resolved. She reports that she is now at her baseline respiratory function and is eager to be discharged to home. She denies the need for a nebulizer machine or Duoneb medication refills, but does ask for a spacer to assist with administration of her rescue inhalers. At time of discharge, the patient is in stable condition and maintaining oxygen saturations on her baseline oxygen requirement. She is provided a prescription for Mucinex, Nicoderm patches, doxycycline, and a spacer device. She is advised to follow up with her primary care provider within 1 week, with Dr. Olmedo is scheduled in early October, and with her applied psychology chair as directed. She is encouraged to contact her applied psychology chair office and inform them of her recent admission for COPD exacerbation. She is instructed to return to the emergency department as needed for any concerning symptoms. (2) COPD exacerbation Is this a current diagnosis for this admission?: Yes Summary: Acute exacerbation has resolved. (3) Chronic diastolic CHF (congestive heart failure), NYHA class 1 Is this a current diagnosis for this admission?: Yes Summary: Stable and without exacerbation. (4) Hypothyroidism Is this a current diagnosis for this admission?: No Summary: The patient's home dose of levothyroxine was continued. (5) Right lower lobe pneumonia Is this a current diagnosis for this admission?: Yes Summary: The patient's chest x-ray suggested a right lower lobe pneumonia. Blood cultures are negative at 4 days. A sputum culture was requested, however the patient did not ever produce an adequate sputum sample. She was empirically placed on IV Invanz and doxycycline. As the patient remained afebrile >48 hours with a normal WBC and rapidly improving respiratory status, the Invanz was discontinued. She is discharged home with a prescription for doxycycline to complete a total 10-day course of therapy. (6) Tobacco dependency Is this a current diagnosis for this admission?: Yes Summary: Smoking cessation was encouraged; nicotine replacement therapies were provided. The patient is encouraged to resume her Chantix at discharge. - Additional Information Resuscitation Status: Do Not Intubate Discharge Diet: Regular Discharge Activity: Activity As Tolerated, Balance Activity w/Rest Prescriptions: Doxycycline Hyclate [Vibramycin 100 mg Tablet] 100 mg PO BIDBS #14 tablet Guaifenesin [Mucinex Sr 600 mg Tablet.sa] 1,200 mg PO Q12 #28 tablet.sa Inhaler,Assist Device,Lg Mask [Breatherite Spacer-Adult Mask] 1 each MC ASDIR PRN #1 spacer PRN Reason: Nicotine [Nicoderm 21 mg/24 Hr Transderm Patch] 1 each TD DAILYP PRN #30 patch.td24 PRN Reason: Home Medications: Albuterol Sulfate [Proventil Hfa] 1 puff IH Q6HP PRN 08/04/18 Bisoprolol Fumarate [Zebeta 5 mg Tablet] 2.5 mg PO DAILY 08/04/18 Budesonide/Formoterol Fumarate [Symbicort HFA 160-4.5 mcg Inhaler 6 gm] 1 puff IH Q12 08/04/18 Ipratropium/Albuterol Sulfate [Iprat-Albut 0.5-3(2.5) mg/3 ml] 3 ml NEB Q4HP PRN 08/04/18 Montelukast Sodium [Singulair 10 mg Tablet] 10 mg PO QPM 08/04/18 Ondansetron HCl [Zofran 4 mg Tablet] 4 mg PO DAILYP PRN 08/04/18 Prednisone [Deltasone 10 mg Tablet] 10 mg PO DAILY 08/04/18 Roflumilast [Daliresp 500 mcg Tablet] 500 mcg PO DAILY 08/04/18 Ropinirole HCl [Requip] 0.5 mg PO QHS 08/04/18 Tiotropium Neon [Spiriva Handihaler 5 Cap/Kit (18 Mcg/Cap)] 1 puff IH DAILY 08/04/18 Levothyroxine Sodium 25 mcg PO DAILY 30 Days #30 tablet 08/08/18 Varenicline Tartrate [Chantix 0.5 mg Tablet] 0.5 mg PO BID 09/30/18 Aspirin [Ecotrin 81 mg EC Tablet] 162 mg PO DAILY 10/01/18 Budesonide/Formoterol Fumarate [Symbicort HFA 160-4.5 mcg Inhaler 6 gm] 2 puff IH Q12 10/01/18 Cyanocobalamin (Vitamin B-12) [Vitamin B-12 Inj 1000 Mcg/1 ml Vial] 1,000 mcg IM .MONTHLY 10/01/18 Gabapentin [Neurontin 100 mg Capsule] 100 mg PO QHS 10/01/18 Omeprazole 20 mg PO DAILY 10/01/18 Tiotropium Neon [Spiriva Handihaler 5 Cap/Kit (18 Mcg/Cap)] 1 cap IH DAILY 10/01/18 Acetaminophen [Tylenol 325 mg Tablet] 650 mg PO Q4HP PRN tablet 10/05/18 Cetirizine HCl [Zyrtec 5 mg Tablet] 5 mg PO DAILY tablet 10/05/18 Doxycycline Hyclate [Vibramycin 100 mg Tablet] 100 mg PO BIDBS #14 tablet 10/05 Guaifenesin [Mucinex Sr 600 mg Tablet.sa] 1,200 mg PO Q12 #28 tablet.sa 10/05/18 Inhaler,Assist Device,Lg Mask [Breatherite Spacer-Adult Mask] 1 each MC ASDIR PRN #1 spacer 10/05/18 Nicotine [Nicoderm 21 mg/24 Hr Transderm Patch] 1 each TD DAILYP PRN #30 patch.td24 10/05/18 History of Present Illness History of Present Illness: Per Dr. Olmos: AUDIE KIMBLE is a 58 year old female who presented to the emergency room with a one-week history of gradually worsening dyspnea (now severe), nonproductive cough (paroxysmal) and wheezing (now severe). She admits that her dyspnea, cough and wheezing have been accompanied by associated symptoms of lightheadedness, headache, right-sided chest discomfort/tightness and intermittent subjective fever. She admits that she continues to smoke cigarettes and smoking has been very difficult for the last day or 2 because it significantly aggravates her dyspnea and cough. She has been using her usual i nhalers, oral prednisone and nebulizer treatments at home without improvement and she has not identified any ameliorating factors for her current symptoms. She further admits that she has had numerous similar episodes in the past due to her moderate to severe chronic obstructive pulmonary disease and chronic respiratory failure with hypoxia and hypercapnia. Her chronic obstructive pulmonary disease is oxygen dependent @ 4 L/min via nasal cannula on a continuous basis. In the emergency room she was found to have an elevated white count 14,300 and was noted to be tachypneic on her examination with significant increased work of breathing exemplified by extensive use of accessory muscles of respiration with significant subcostal retractions. Her venous PCO2 was critically elevated at 98.7. Her chest x-ray, as read by me, demonstrates small patchy areas of interstitial versus intra-alveolar infiltrates more prominent on the right than the left. Her overall clinical picture is of an acute exacerbation of COPD rather than a pneumonia and therefore she was admitted to IMCU with BiPAP and an aggressive pulmonary toilet with IV steroids and empiric antibiotics (while awaiting blood culture results). Physical Exam Vital Signs: Temp Pulse Resp BP Pulse Ox 98.6 F 104 H 20 108/60 97 10/05/18 13:02 10/05/18 13:02 10/05/18 13:02 10/05/18 13:02 10/05/18 13:02 Intake & Output 10/04/18 10/05/18 10/06/18 06:59 06:59 06:59 Intake Total 1485 1042 891 Output Total 0 Balance 1485 1042 891 Weight 76.5 kg 75.4 kg General appearance: PRESENT: no acute distress, well-developed, well-nourished - Overweight Head exam: PRESENT: atraumatic, normocephalic Eye exam: PRESENT: conjunctiva pink, EOMI, PERRLA. ABSENT: scleral icterus Ear exam: PRESENT: normal external ear exam Mouth exam: PRESENT: moist, tongue midline Neck exam: ABSENT: carotid bruit, JVD, lymphadenopathy, thyromegaly Respiratory exam: PRESENT: clear to auscultation lashell, prolonged expiratory phas, rhonchi, symmetrical, unlabored, other - Supplemental oxygen via nasal cannula. ABSENT: rales, wheezes Cardiovascular exam: PRESENT: RRR. ABSENT: diastolic murmur, rubs, systolic murmur Pulses: PRESENT: normal dorsalis pedis pul Vascular exam: PRESENT: normal capillary refill GI/Abdominal exam: PRESENT: normal bowel sounds, soft. ABSENT: distended, guarding, mass, organolmegaly, rebound, tenderness Rectal exam: PRESENT: deferred Extremities exam: PRESENT: full ROM. ABSENT: calf tenderness, clubbing, pedal edema Neurological exam: PRESENT: alert, awake, oriented to person, oriented to place, oriented to time, oriented to situation, CN II-XII grossly intact. ABSENT: motor sensory deficit Psychiatric exam: PRESENT: appropriate affect, normal mood. ABSENT: homicidal ideation, suicidal ideation Skin exam: PRESENT: dry, intact, warm. ABSENT: cyanosis, rash Results Laboratory Results: 10/04/18 05:04 10/03/18 04:04 09/30/18 09/30/18 10/01/18 22:54 22:54 05:09 Creatine Kinase 20 L < 20 L CK-MB (CK-2) 0.99 Troponin I < 0.012 NT-Pro-B Natriuret Pep 10/01/18 10/01/18 10/01/18 05:09 05:09 11:22 Creatine Kinase 31 CK-MB (CK-2) 0.99 Troponin I < 0.012 NT-Pro-B Natriuret Pep 136 10/01/18 11:22 Creatine Kinase CK-MB (CK-2) 1.72 Troponin I < 0.012 NT-Pro-B Natriuret Pep Impressions: Chest X-Ray 09/30/18 16:55 IMPRESSION: Patchy bilateral airspace densities as noted above primarily in the right lower lung field most consistent with an acute process superimposed on chronic underlying changes. Other findings as noted above Qualifiers - * PATIENT BEING DISCHARGED WITH ANY OF THE FOLLOWING DIAGNOSIS: Heart Failure HF Pt being discharged on ACEI for LVEF less than 40%?: No Reason(s) for not prescribing ACEI:: Not indicated HF Pt being discharged on ARBS for LVEF less than 40%?: No Reason(s) for not prescribing ARBS:: Not indicated HF Pt with Afib discharged with Warfarin?: No Reason(s) for not prescribing Warfarin:: Not indicated HF Pt discharged on evidence-based Beta Sarah Beth:: No Reason(s) for not prescribing evidence-based Beta Sarah Beth:: Not indicated Plan Discharge Plan: Discharge to home with home health care nursing, PT/OT, aide. Time Spent: Less than 30 Minutes
[2018-10-30] MEDS ORDERED: CYANOCOBALAMIN (VITAMIN B-12) INJ 1000 MCG/1 ML VIAL IM SCH (10:00)
== END 2018-10-05 13:40 | disposition home health service (06) | DRG 189 ==
LOC: ER 16:17 → EH 21:40 → 3N 23:31
PROVIDERS: ADMIT Emergency Medicine; ATTEND Emergency Medicine
DX: J96.22 Acute and chronic respiratory failure with hypercapnia (principal); J18.1 Lobar pneumonia, unspecified organism; J44.1 Chronic obstructive pulmonary disease with (acute) exacerbation; I50.32 Chronic diastolic (congestive) heart failure; J96.21 Acute and chronic respiratory failure with hypoxia; I11.0 Hypertensive heart disease with heart failure; E88.01 Alpha-1-antitrypsin deficiency; D69.6 Thrombocytopenia, unspecified; D64.9 Anemia, unspecified; E03.9 Hypothyroidism, unspecified; K21.9 Gastro-esophageal reflux disease without esophagitis; G25.81 Restless legs syndrome; F17.210 Nicotine dependence, cigarettes, uncomplicated; Z99.81 Dependence on supplemental oxygen; Z79.82 Long term (current) use of aspirin; Z79.51 Long term (current) use of inhaled steroids; Z79.52 Long term (current) use of systemic steroids; Z79.899 Other long term (current) drug therapy
CPT/HCPCS: 36415; 71045; 80048; 80053; 81001; 81332; 82150; 82550; 82553; 82803; 83605; 83690; 83735; 83880; 84439; 84443; 84481; 84484; 85025; 85610; 87040; 87086; 93005; 93010; 94640; 94660; 96361; 96374; 96375; 99291; J1335; J1644; J1650; J2543; J2920; J2930; J3420; J3480; J3490; J7030; J7512; J7620

== ENCOUNTER 2018-11-22 10:04 | Inpatient (IN) | payer MEDICARE ==
[2018-11-22] MEDS ORDERED: IPRATROPIUM/ALBUTEROL 0.5-2.5 MG/3 ML AMPUL NEB ONE (10:25)
--- NOTE | 2018-11-22 10:29 | ER Document Report ---
ED General - General Stated Complaint: SHORTNESS OF BREATH Time Seen by Provider: 11/22/18 10:13 Primary Care Provider: SUDARSHAN HAYS MD [Primary Care Provider] - Follow up as needed Mode of Arrival: Medic Information source: Patient Notes: 58-year-old female with a history of COPD and CHF is brought to emergency department by EMS for wheezing and shortness of breath. Patient states that her symptoms started yesterday. She is on 5 L home oxygen. Patient states that she has been using her neb was at home without relief of symptoms. She is on 10 mg of prednisone daily. Patient denies any fever, chills, productive cough, chest pain. TRAVEL OUTSIDE OF THE [place] IN LAST 30 DAYS: No - HPI Onset: Yesterday Onset/Duration: Persistent Quality of pain: No pain Severity: Severe Associated symptoms: None Exacerbated by: Denies Relieved by: Denies Similar symptoms previously: Yes Recently seen / treated by doctor: No - Related Data Allergies/Adverse Reactions: doxepin [Doxepin] Allergy (Verified 09/30/18 16:24) Shortness of Breath, Swelling etodolac [Etodolac] Allergy (Verified 09/30/18 16:24) loratadine [Loratadine] Allergy (Verified 09/30/18 16:24) Shortness of Breath, Swelling meloxicam [Meloxicam] Allergy (Verified 09/30/18 16:24) Sulfa (Sulfonamide Antibiotics) Allergy (Verified 09/30/18 16:24) Shortness of Breath, Swelling Past Medical History - General Information source: Patient - Social History Smoking Status: Former Smoker Family History: Hyperlipidemia, Hypertension - Past Medical History Cardiac Medical History: Reports: Hx Congestive Heart Failure - Diastolic Denies: Hx Atrial Fibrillation, Hx DVT, Hx Heart Attack, Hx Hypercholesterolemia, Hx Hypertension, Hx Pulmonary Embolism Pulmonary Medical History: Reports: Hx Asthma, Hx Bronchitis, Hx COPD - home O2 & BIPAP-dependent, Hx Pneumonia, Hx Intubation - Patient does not wish to be intubated again., Hx Respiratory Failure - Acute and chronic Neurological Medical History: Reports: Hx Migraine. Denies: Hx Seizures Endocrine Medical History: Denies: Hx Diabetes Mellitus Type 1, Hx Diabetes Mellitus Type 2, Hx Hyperthyroidism, Hx Hypothyroidism Renal/ Medical History: Denies: Hx End Stage Renal Disease, Hx Peritoneal Dialysis GI Medical History: Reports: Hx Gastroesophageal Reflux Disease. Denies: Hx Cirrhosis, Hx Crohn's Disease, Hx Hepatitis, Hx Ulcerative Colitis Musculoskeletal Medical History: Reports Hx Arthritis, Denies Hx Gout, Reports Hx Muscle Weakness Skin Medical History: Denies Hx Eczema, Denies Hx Psoriasis Psychiatric Medical History: Denies: Hx Bipolar Disorder, Hx Depression Traumatic Medical History: Reports: Hx Pneumothorax - x4 R lung, 2010 when the patient had a right lung bx required a chest tube. Denies: Hx Gunshot Wound Infectious Medical History: Denies: Hx Hepatitis Past Surgical History: Reports: Hx Gynecologic Surgery, Hx Hysterectomy, Hx Tonsillectomy, Hx Tubal Ligation, Other - Chest tubes for collapsed lungs - Immunizations Hx Diphtheria, Pertussis, Tetanus Vaccination: No Hx Pneumococcal Vaccination: 07/19/18 Review of Systems - Review of Systems Constitutional: No symptoms reported EENT: No symptoms reported Cardiovascular: No symptoms reported Respiratory: Short of breath, Wheezing Gastrointestinal: No symptoms reported Genitourinary: No symptoms reported Female Genitourinary: No symptoms reported Musculoskeletal: No symptoms reported Skin: No symptoms reported Hematologic/Lymphatic: No symptoms reported Neurological/Psychological: No symptoms reported -: Yes All other systems reviewed and negative Physical Exam - Vital signs Vitals: Resp Pulse Ox 33 H 92 11/22/18 09:46 11/22/18 09:46 - Notes Notes: PHYSICAL EXAMINATION: GENERAL: Well-appearing, well-nourished and in no acute distress. HEAD: Atraumatic, normocephalic. EYES: Pupils equal round and reactive to light, extraocular movements intact, conjunctiva are normal. ENT: Nares patent, oropharynx clear without exudates. Moist mucous membranes. NECK: Normal range of motion, supple without lymphadenopathy LUNGS: Diffuse wheezing. No rhonchi. Patient speaking and 1 word sentences. HEART: Tachycardia. S1-S2 appreciated. ABDOMEN: Soft, nontender, nondistended abdomen. No guarding, no rebound. No masses appreciated. Female : deferred Musculoskeletal: Normal range of motion, no pitting or edema. No cyanosis. NEUROLOGICAL: Cranial nerves grossly intact. Normal speech, normal gait. Normal sensory, motor exams PSYCH: Normal mood, normal affect. SKIN: Warm, Dry, normal turgor, no rashes or lesions noted. Course - Re-evaluation Re-evalutation: 11/22/18 10:27 EKG: Ventricular rate 134, IN interval 132, QRS duration 82, QTc 424, sinus tachycardia. No ST segment elevation. 11/22/18 12:43 Labs and imaging obtained. Chest x-ray does not show an acute process. Patient's white blood cell count is elevated at 15.4. She takes prednisone daily. Patient was given Solu-Medrol and DuoNeb treatments in route by EMS. I started the patient on BiPAP. A VBG was obtained. PH is 7.29, PCO2 101, bicarb 47. On reevaluation, patient's lungs are clear to auscultation. Shes breathing easier on BIPBP. I will admit the patient to the hospitalist for COPD exacerbation. I spoke with Serenity Bai NP about the patient. With the patient's elevated white count and recent hospitalization she feels that the patient needs IV antibiotics. She states that she will enter the IV antibiotics as she will need to evaluate the previous sensitivities and the patient meets HCAP Criteria. Patient currently stable. 11/22/18 12:45 11/22/18 12:48 - Vital Signs Vital signs: Temp Pulse Resp BP Pulse Ox 97.4 F 36 H 114/74 90 L 11/22/18 10:59 11/22/18 11:01 11/22/18 11:00 11/22/18 11:01 - Laboratory Result Diagrams: 11/22/18 10:25 11/22/18 10:25 Laboratory results interpreted by me: 11/22/18 11/22/18 11/22/18 10:25 10:25 10:25 WBC 15.4 H RDW 15.8 H Seg Neuts % (Manual) 88 H Lymphocytes % (Manual) 5 L Monocytes % (Manual) 2 L Abs Neuts (Manual) 14.3 H VBG pH VBG pCO2 VBG HCO3 Chloride 93 L Carbon Dioxide 49 H* Anion Gap 2 L BUN 22 H Creatinine 0.35 L Glucose 114 H POC Glucose Lactic Acid 0.6 L Creatine Kinase 23 L 11/22/18 11/22/18 10:25 10:32 WBC RDW Seg Neuts % (Manual) Lymphocytes % (Manual) Monocytes % (Manual) Abs Neuts (Manual) VBG pH 7.29 L VBG pCO2 101.7 H* VBG HCO3 47.5 H Chloride Carbon Dioxide Anion Gap BUN Creatinine Glucose POC Glucose 113 H Lactic Acid Creatine Kinase Discharge - Discharge Clinical Impression: COPD exacerbation Condition: Stable Disposition: ADMITTED OBSERVATION Admitting Provider: Hospitalist Unit Admitted: IMCU Referrals: SUDARSHAN HAYS MD [Primary Care Provider] - Follow up as needed
[2018-11-22] MEDS: MAGNESIUM SULFATE/D5W 1 GM/100 ML RTUPB IV SCH ×2 (10:58→11:39)
[2018-11-22 11:07] LABS: VENOUS BLOOD BASE EXCESS 15.7 mmol/L; VENOUS BLOOD HCO3 47.5 mmol/L (20-32); VENOUS BLOOD PH 7.29 (7.30-7.42)
[2018-11-22 11:09] LABS: VENOUS BLOOD PCO2 101.7 mmHg (35-63)
[2018-11-22 11:15] LABS: HEMATOCRIT 37.4 % (36.0-47.0); HEMOGLOBIN 12.3 g/dL (12.0-15.5); MEAN CORPUSCULAR HEMOGLOBIN 31.1 pg (27.0-33.4); MEAN CORPUSCULAR VOLUME 94 fl (80-97); PLATELET COUNT 150 10^3/uL (150-450); RED BLOOD COUNT 3.97 10^6/uL (3.72-5.28); RED CELL DISTRIBUTION WIDTH 15.8 % (11.5-14.0); WHITE BLOOD COUNT 15.4 10^3/uL (4.0-10.5)
[2018-11-22 11:19] LABS: ALANINE AMINOTRANSFERASE 28 U/L (9-52); ALBUMIN 4.1 g/dL (3.5-5.0); ALKALINE PHOSPHATASE 60 U/L (38-126); ASPARTATE AMINO TRANSFERASE 21 U/L (14-36); BILIRUBIN,DIRECT 0.3 mg/dL (0.0-0.4); BILIRUBIN,TOTAL 0.8 mg/dL (0.2-1.3); BLOOD UREA NITROGEN 22 mg/dL (7-20); CALCIUM 9.1 mg/dL (8.4-10.2); CHLORIDE 93 mmol/L (98-107); CREATINE KINASE 23 U/L (30-135); GLUCOSE 114 mg/dL (75-110); POTASSIUM 4.4 mmol/L (3.6-5.0); TOTAL PROTEIN 6.3 g/dL (6.3-8.2)
--- NOTE | 2018-11-22 11:19 | RADIOLOGY REPORT (SQ) ---
EXAM DESCRIPTION: CHEST SINGLE VIEW COMPLETED DATE/TIME: 11/22/2018 10:49 am REASON FOR STUDY: bed 16 sepsis protocol COMPARISON: Chest films 10/31/2017, 05/21/2018, 07/25/2018, 09/30/2018 EXAM PARAMETERS: NUMBER OF VIEWS: One view. TECHNIQUE: Single frontal radiographic view of the chest acquired. RADIATION DOSE: NA LIMITATIONS: None. FINDINGS: LUNGS AND PLEURA: Chronic increased interstitial markings are seen in the periphery of the right upper lobe and right lung base. Elsewhere, the lungs are hyperinflated and hyperlucent from obstructive disease. No acute infiltrate s. No pleural effusion. No pneumothorax. MEDIASTINUM AND HILAR STRUCTURES: No masses. Contour normal. HEART AND VASCULAR STRUCTURES: Heart normal in size. Normal vasculature. BONES: No acute findings. HARDWARE: None in the chest. OTHER: No other significant finding. IMPRESSION: Obstructive lung disease with spotty areas of pulmonary parenchymal scarring. No acute findings. TECHNICAL DOCUMENTATION: JOB ID: [id number] [employer]- All Rights Reserved Reading location - IP/workstation name: [email or web address]
[2018-11-22 11:26] LABS: ANION GAP 2 (5-19)
[2018-11-22 11:27] LABS: CARBON DIOXIDE 49 mmol/L (22-30)
[2018-11-22 11:32] LABS: INTERNATIONAL RATION (INR) 0.85; PROTHROMBIN TIME 12.1 SEC (11.4-15.4)
[2018-11-22 11:34] LABS: TROPONIN I < 0.012 ng/mL
[2018-11-22 11:40] LABS: ABSOLUTE LYMPHOCYTES# (MANUAL) 0.8 10^3/uL (0.5-4.7); ABSOLUTE MONOCYTES # (MANUAL) 0.3 10^3/uL (0.1-1.4); ABSOLUTE NEUTROPHILS# (MANUAL) 14.3 10^3/uL (1.7-8.2); ANISOCYTOSIS SLIGHT; BAND NEUTROPHILS % (MANUAL) 5 % (3-5); BASOPHILS % (MANUAL) 0 % (0-2); EOSINOPHILS % (MANUAL) 0 % (0-6); LYMPHOCYTES % (MANUAL) 5 % (13-45); MONOCYTES % (MANUAL) 2 % (3-13); OVALOCYTES SLIGHT; PLATELET COMMENT ADEQUATE; POIKILOCYTOSIS SLIGHT; SEGMENTED NEUTROPHILS % (MAN) 88 % (42-78); TOTAL CELLS COUNTED 100
[2018-11-22] MEDS ORDERED: NORMAL SALINE 500 ML IV ONE (12:26)
[2018-11-22] MEDS ORDERED: ONDANSETRON HCL INJ/PF 4 MG/2 ML SDV IV PRN (12:57)
[2018-11-22] MEDS ORDERED: MAGNESIUM HYDROXIDE SUSP 30 ML UDCUP PO PRN (12:57)
[2018-11-22] MEDS ORDERED: MAG HYDROX/AL HYDROX/SIMETH SUSP 30 ML UDCUP PO PRN (12:57)
[2018-11-22] MEDS ORDERED: NORMAL SALINE 1000 ML 1,000 ML IV ONE (13:19)
[2018-11-22] MEDS: NORMAL SALINE 1000 ML 1,000 ML IV PRN ×2 (13:25→19:36)
--- NOTE | 2018-11-22 13:48 | PDOC H&P ---
History of Present Illness Admission Date/PCP: SUDARSHAN HAYS MD Patient complains of: Difficulty breathing History of Present Illness: AUDIE KIMBLE is a 58 year old female with a past medical history of alpha-1 antitrypsin deficiency, COPD, chronic respiratory failure who is home O2 and trilogy dependent, chronic diastolic CHF, pulmonary hypertension, anemia, thrombocytopenia, and tobacco dependence with continuous use who presented to the emergency department today with a complaint of 3 days of progressively worsening dyspnea and fatigue. She reports increased work of breathing, fatigue, rhinorrhea and a nonproductive cough. She denied fever, chills, malaise, and sick contacts. Evaluation in the emergency department revealed tachycardia (heart rate 130), tachypnea (RR 42), and hypoxia on her baseline oxygen requirement. She was found to have leukocytosis (WBCs 15.4), elevated bicarb (49) on chemistry, normal lactic acid and troponin, and otherwise unremarkable chemistry. VBG demonstrated respiratory acidosis with a CO2 of 101.7; ABG is pending. Chest x- ray demonstrated chronic COPD changes with no acute findings. EKG demonstrated sinus tachycardia. She was provided IV Solu-Medrol, DuoNeb treatments, placed on BiPAP, and referred to the hospitalist service for admission and management of acute on chronic respiratory failure secondary to a COPD exacerbation. Past Medical History Cardiac Medical History: Reports: Congestive Heart Failure - Diastolic Denies: Myocardial Infarction Pulmonary Medical History: Reports: Asthma, Bronchitis, Chronic Obstructive Pulmonary Disease (COPD) - home O2 & BIPAP-dependent, Intubation - Now DNR/DNI, Pneumonia, Respiratory Failure - Chronic EENT Medical History: Reports: None Neurological Medical History: Reports: Migraine Denies: Ischemic CVA, Seizures Endocrine Medical History: Reports: None Renal/ Medical History: Reports: None Malignancy Medical History: Reports: None GI Medical History: Reports: Gastroesophageal Reflux Disease Musculoskeltal Medical History: Reports: Arthritis Skin Medical History: Reports: None Psychiatric Medical History: Reports: Tobacco Dependency Traumatic Medical History: Reports: Pneumothorax - x4 R lung, 2010 when the patient had a right lung bx required a chest tube Denies: Gunshot Wound Hematology: Reports: Anemia Infectious Medical History: Reports: None Past Surgical History Past Surgical History: Reports: Hysterectomy, Tonsillectomy, Tubal Ligation, Other - Lung biopsy Social History Information Source: Patient Lives with: Alone Smoking Status: Current Every Day Smoker Cigarettes Packs Per Day: 1 Frequency of Alcohol Use: None Hx Recreational Drug Use: No Drugs: None Hx Prescription Drug Abuse: No - Advance Directive Resuscitation Status: Do Not Resuscitate Family History Family History: Hyperlipidemia, Hypertension Parental Family History Reviewed: Yes Children Family History Reviewed: Yes Sibling(s) Family History Reviewed.: Yes Medication/Allergy Home Medications: Albuterol Sulfate [Proventil Hfa] 1 puff IH Q6HP PRN 08/04/18 Bisoprolol Fumarate [Zebeta 5 mg Tablet] 2.5 mg PO DAILY 08/04/18 Budesonide/Formoterol Fumarate [Symbicort HFA 160-4.5 mcg Inhaler 6 gm] 1 puff IH Q12 08/04/18 Ipratropium/Albuterol Sulfate [Iprat-Albut 0.5-3(2.5) mg/3 ml] 3 ml NEB Q4HP PRN 08/04/18 Montelukast Sodium [Singulair 10 mg Tablet] 10 mg PO QPM 08/04/18 Ondansetron HCl [Zofran 4 mg Tablet] 4 mg PO DAILYP PRN 08/04/18 Prednisone [Deltasone 10 mg Tablet] 10 mg PO DAILY 08/04/18 Roflumilast [Daliresp 500 mcg Tablet] 500 mcg PO DAILY 08/04/18 Ropinirole HCl [Requip] 0.5 mg PO QHS 08/04/18 Tiotropium [place] [Spiriva Handihaler 5 Cap/Kit (18 Mcg/Cap)] 1 puff IH DAILY 08/04/18 Levothyroxine Sodium 25 mcg PO DAILY 30 Days #30 tablet 08/08/18 Varenicline Tartrate [Chantix 0.5 mg Tablet] 0.5 mg PO BID 09/30/18 Aspirin [Ecotrin 81 mg EC Tablet] 162 mg PO DAILY 10/01/18 Budesonide/Formoterol Fumarate [Symbicort HFA 160-4.5 mcg Inhaler 6 gm] 2 puff IH Q12 10/01/18 Cyanocobalamin (Vitamin B-12) [Vitamin B-12 Inj 1000 Mcg/1 ml Vial] 1,000 mcg IM .MONTHLY 10/01/18 Gabapentin [Neurontin 100 mg Capsule] 100 mg PO QHS 10/01/18 Omeprazole 20 mg PO DAILY 10/01/18 Tiotropium [place] [Spiriva Handihaler 5 Cap/Kit (18 Mcg/Cap)] 1 cap IH DAILY 10/01/18 Acetaminophen [Tylenol 325 mg Tablet] 650 mg PO Q4HP PRN tablet 10/05/18 Cetirizine HCl [Zyrtec 5 mg Tablet] 5 mg PO DAILY tablet 10/05/18 Doxycycline Hyclate [Vibramycin 100 mg Tablet] 100 mg PO BIDBS #14 tablet 10/05/18 Guaifenesin [Mucinex Sr 600 mg Tablet.sa] 1,200 mg PO Q12 #28 tablet.sa 10/05/18 Inhaler,Assist Device,Lg Mask [Breatherite Spacer-Adult Mask] 1 each MC ASDIR PRN #1 spacer 10/05/18 Nicotine [Nicoderm 21 mg/24 Hr Transderm Patch] 1 each TD DAILYP PRN #30 patch.td24 10/05/18 Allergies/Adverse Reactions: doxepin [Doxepin] Allergy (Verified 09/30/18 16:24) Shortness of Breath, Swelling etodolac [Etodolac] Allergy (Verified 09/30/18 16:24) loratadine [Loratadine] Allergy (Verified 09/30/18 16:24) Shortness of Breath, Swelling meloxicam [Meloxicam] Allergy (Verified 09/30/18 16:24) Sulfa (Sulfonamide Antibiotics) Allergy (Verified 09/30/18 16:24) Shortness of Breath, Swelling Review of Systems Constitutional: PRESENT: fatigue. ABSENT: chills, fever(s), headache(s), weight gain, weight loss Eyes: ABSENT: visual disturbances Ears: ABSENT: hearing changes Cardiovascular: PRESENT: dyspnea on exertion. ABSENT: chest pain, edema, orthropnea, palpitations Respiratory: PRESENT: cough, dyspnea. ABSENT: hemoptysis, sputum Gastrointestinal: ABSENT: abdominal pain, constipation, diarrhea, hematemesis, hematochezia, nausea, vomiting Genitourinary: ABSENT: dysuria, hematuria Musculoskeletal: ABSENT: joint swelling Integumentary: ABSENT: rash, wounds Neurological: ABSENT: abnormal gait, abnormal speech, confusion, dizziness, focal weakness, syncope Psychiatric: ABSENT: anxiety, depression, homidical ideation, suicidal ideation Endocrine: ABSENT: cold intolerance, heat intolerance, polydipsia, polyuria Hematologic/Lymphatic: ABSENT: easy bleeding, easy bruising Physical Exam Vital Signs: Temp Pulse Resp BP Pulse Ox 97.4 F 36 H 114/74 90 L 11/22/18 10:59 11/22/18 11:01 11/22/18 11:00 11/22/18 11:01 Intake & Output 11/21/18 11/22/18 11/23/18 06:59 06:59 06:59 Intake Total 100 Balance 100 Weight 65.771 kg General appearance: PRESENT: cooperative, well-developed, well-nourished, other - Moderate respiratory distress; means tachycardic, tachypneic, and on BiPAP Head exam: PRESENT: atraumatic, normocephalic Eye exam: PRESENT: conjunctiva pink, EOMI, PERRLA. ABSENT: scleral icterus Ear exam: PRESENT: normal external ear exam Mouth exam: PRESENT: dry mucosa, tongue midline Neck exam: ABSENT: carotid bruit, JVD, lymphadenopathy, thyromegaly Respiratory exam: PRESENT: accessory muscle use, prolonged expiratory phas, rhonchi, symmetrical, tachypnea. ABSENT: rales, wheezes Cardiovascular exam: PRESENT: +S1, +S2, tachycardia. ABSENT: diastolic murmur, rubs, systolic murmur Pulses: PRESENT: normal dorsalis pedis pul Vascular exam: PRESENT: normal capillary refill GI/Abdominal exam: PRESENT: normal bowel sounds, soft. ABSENT: distended, guarding, mass, organolmegaly, rebound, tenderness Rectal exam: PRESENT: deferred Extremities exam: PRESENT: full ROM. ABSENT: calf tenderness, clubbing, pedal edema Neurological exam: PRESENT: alert, awake, oriented to person, oriented to place, oriented to time, oriented to situation, CN II-XII grossly intact. ABSENT: motor sensory deficit Psychiatric exam: PRESENT: appropriate affect, normal mood. ABSENT: homicidal ideation, suicidal ideation Skin exam: PRESENT: dry - Poor skin turgor, intact, warm. ABSENT: cyanosis, rash Results Laboratory Results: 11/22/18 10:25 11/22/18 10:25 11/22/18 11/22/18 11/22/18 10:25 10:25 10:25 WBC 15.4 H RBC 3.97 Hgb 12.3 Hct 37.4 MCV 94 MCH 31.1 MCHC 33.0 RDW 15.8 H Plt Count 150 Seg Neutrophils % Not Reportable Lymphocytes % Not Reportable Monocytes % Not Reportable Eosinophils % Not Reportable Basophils % Not Reportable Absolute Neutrophils Not Reportable Absolute Lymphocytes Not Reportable Absolute Monocytes Not Reportable Absolute Eosinophils Not Reportable Absolute Basophils Not Reportable VBG pH VBG pCO2 VBG HCO3 VBG Base Excess Sodium 144.0 Potassium 4.4 Chloride 93 L Carbon Dioxide 49 H* Anion Gap 2 L BUN 22 H Creatinine 0.35 L Est GFR ( Amer) > 60 Est GFR (Non-Af Amer) > 60 Glucose 114 H Lactic Acid 0.6 L Calcium 9.1 Total Bilirubin 0.8 AST 21 ALT 28 Alkaline Phosphatase 60 Total Protein 6.3 Albumin 4.1 11/22/18 10:25 WBC RBC Hgb Hct MCV MCH MCHC RDW Plt Count Seg Neutrophils % Lymphocytes % Monocytes % Eosinophils % Basophils % Absolute Neutrophils Absolute Lymphocytes Absolute Monocytes Absolute Eosinophils Absolute Basophils VBG pH 7.29 L VBG pCO2 101.7 H* VBG HCO3 47.5 H VBG Base Excess 15.7 Sodium Potassium Chloride Carbon Dioxide Anion Gap BUN Creatinine Est GFR ( Amer) Est GFR (Non-Af Amer) Glucose Lactic Acid Calcium Total Bilirubin AST ALT Alkaline Phosphatase Total Protein Albumin 11/22/18 11/22/18 10:25 10:25 Creatine Kinase 23 L CK-MB (CK-2) 0.80 Troponin I < 0.012 Impressions: Chest X-Ray 11/22/18 10:12 IMPRESSION: Obstructive lung disease with spotty areas of pulmonary parenchymal scarring. No acute findings. Assessment & Plan - Diagnosis (1) Acute respiratory failure with hypoxia and hypercapnia Is this a current diagnosis for this admission?: Yes Plan: Chest x-ray revealed chronic changes related to COPD; no acute findings. VBG demonstrated respiratory acidosis with hypercapnia and hypoxia. ABG pending. Blood and sputum cultures pending. The patient is admitted to [facility] on continuous cardiac telemetry and pulse oximetry. She is provided supplemental oxygen and BiPAP as needed to maintain oxygen saturations >88% Empirically placed on p.o. Levaquin for Pseudomonas coverage as patient has previous positive blood and sputum results. Continue IV Solu-Medrol. Continue home dose Daliresp, Mucinex, Zyrtec, and Singulair. Consider pulmonology consultation. Patient confirms she is a DNR/DNI. Patient has a history of thrombocytopenia; placed on Arixtra for DVT prophylaxis. (2) COPD exacerbation Is this a current diagnosis for this admission?: Yes Plan: Management as above. (3) Tobacco dependency Is this a current diagnosis for this admission?: Yes Plan: Smoking cessation is strongly encouraged; nicotine replacement therapies are provided. (4) Restless legs syndrome Is this a current diagnosis for this admission?: Yes Plan: The patient's home dose gabapentin and Requip are continued. (5) GERD (gastroesophageal reflux disease) Is this a current diagnosis for this admission?: Yes Plan: Pepcid twice daily - Time Time Spent: 50 to 70 Minutes Medications reviewed and adjusted accordingly: Yes Anticipated discharge: Home - Inpatient Certification Based on my medical assessment, after consideration of the patient's comorbidities, presenting symptoms, or acuity I expect that the services needed warrant INPATIENT care.: Yes I certify that my determination is in accordance with my understanding of Medicare's requirements for reasonable and necessary INPATIENT services [42 CFR 412.3e].: Yes Medical Necessity: Need Close Monitoring Due to Risk of Patient Decompensation, Need For Continuous Telemetry Monitoring, Need for Nebulizer Therapy and Monitoring of Response
[2018-11-22] MEDS: IPRATROPIUM/ALBUTEROL 0.5-2.5 MG/3 ML AMPUL NEB SCH ×2 (14:01→19:42)
[2018-11-22 14:06] LABS: ARTERIAL BLOOD H2CO3 3.19 mmol/L (1.05-1.35); ARTERIAL BLOOD O2 SATURATION 95.4 % (94-98); ARTERIAL BLOOD PH 7.24 (7.35-7.45); ARTERIAL BLOOD PO2 95.3 mmHg (80-100); ARTERIAL BLOOD TOTAL CO2 47.3 mmol/L (21-25)
[2018-11-22 14:08] LABS: ARTERIAL BLOOD FIO2 60%
--- NOTE | 2018-11-22 18:22 | EKG REPORT ---
SEVERITY:- BORDERLINE ECG - SINUS TACHYCARDIA PROBABLE LEFT ATRIAL ABNORMALITY : Confirmed by: Marcela Lombardo 22-Nov-2018 18:22:04
[2018-11-22] MEDS: METHYLPREDNISOLONE INJ 40 MG/1 ML SDV IV SCH ×2 (18:31→23:33)
[2018-11-22] MEDS: LEVOFLOXACIN 750 MG TABLET PO SCH (18:34)
[2018-11-22] MEDS: MONTELUKAST SODIUM 10 MG TABLET PO SCH (18:34)
[2018-11-22] MEDS: LEVALBUTEROL HCL NEB 1.25 MG/3 ML AMPUL NEB PRN (21:48)
[2018-11-22] MEDS ORDERED: (PENDING PHARMACY ID) (Ropinirole Hcl [Requip] 0.5 MG) PO SCH (22:00)
[2018-11-22] MEDS: GUAIFENESIN 600 MG TABLET.SA PO SCH (23:33)
[2018-11-22] MEDS: FAMOTIDINE 20 MG TABLET PO SCH (23:34)
[2018-11-22] MEDS: GABAPENTIN 100 MG CAPSULE PO SCH (23:34)
[2018-11-22] MEDS: ACETAMINOPHEN 325 MG TABLET PO PRN (23:36)
[2018-11-23] MEDS: LEVALBUTEROL HCL NEB 1.25 MG/3 ML AMPUL NEB PRN ×2 (00:04→11:41)
[2018-11-23] MEDS: IPRATROPIUM/ALBUTEROL 0.5-2.5 MG/3 ML AMPUL NEB SCH ×4 (02:00→20:35)
[2018-11-23] MEDS: METHYLPREDNISOLONE INJ 40 MG/1 ML SDV IV SCH ×3 (06:19→21:35)
[2018-11-23 06:57] LABS: HEMATOCRIT 30.6 % (36.0-47.0); MEAN CORPUSCULAR HEMOGLOBIN 30.7 pg (27.0-33.4); MEAN CORPUSCULAR VOLUME 93 fl (80-97); PLATELET COUNT 111 10^3/uL (150-450); RED BLOOD COUNT 3.29 10^6/uL (3.72-5.28); RED CELL DISTRIBUTION WIDTH 15.7 % (11.5-14.0); WHITE BLOOD COUNT 7.4 10^3/uL (4.0-10.5)
[2018-11-23 06:59] LABS: ABSOLUTE LYMPHOCYTES# (MANUAL) 0.2 10^3/uL (0.5-4.7); ABSOLUTE MONOCYTES # (MANUAL) 0.1 10^3/uL (0.1-1.4); ABSOLUTE NEUTROPHILS# (MANUAL) 7.1 10^3/uL (1.7-8.2); BASOPHILS % (MANUAL) 0 % (0-2); EOSINOPHILS % (MANUAL) 0 % (0-6); LYMPHOCYTES % (MANUAL) 3 % (13-45); MONOCYTES % (MANUAL) 1 % (3-13); SEGMENTED NEUTROPHILS % (MAN) 96 % (42-78); TOTAL CELLS COUNTED 100
[2018-11-23 07:00] LABS: ANISOCYTOSIS 1+; PLATELET COMMENT ADEQUATE; POLYCHROMASIA 1+
[2018-11-23] MEDS: NORMAL SALINE 1000 ML 1,000 ML IV PRN ×2 (07:00→15:55)
[2018-11-23 07:01] LABS: HEMOGLOBIN 10.1 g/dL (12.0-15.5)
[2018-11-23 07:22] LABS: BLOOD UREA NITROGEN 21 mg/dL (7-20); CALCIUM 8.6 mg/dL (8.4-10.2); CHLORIDE 100 mmol/L (98-107); GLUCOSE 103 mg/dL (75-110); POTASSIUM 4.8 mmol/L (3.6-5.0)
[2018-11-23 07:35] LABS: ANION GAP 4 (5-19)
[2018-11-23 07:39] LABS: CARBON DIOXIDE 41 mmol/L (22-30)
[2018-11-23 09:01] LABS: APPEARANCE,URINE SLIGHTLY-CLOUDY; BILIRUBIN,URINE NEGATIVE (NEGATIVE); COLOR,URINE YELLOW; GLUCOSE, URINE NEGATIVE (NEGATIVE); KETONES,URINE 20 mg/dL (NEGATIVE); LEUKOCYTE ESTERASE,URINE NEGATIVE (NEGATIVE); NITRITE,URINE NEGATIVE (NEGATIVE); PROTEIN,URINE NEGATIVE (NEGATIVE); URINE SPECIFIC GRAVITY 1.024; UROBILINOGEN,URINE NEGATIVE mg/dL (<2.0)
[2018-11-23 09:48] LABS: ARTERIAL BLOOD BASE EXCESS 11.4 mmol/L; ARTERIAL BLOOD H2CO3 2.19 mmol/L (1.05-1.35); ARTERIAL BLOOD HCO3 39.6 mmol/L (20-24); ARTERIAL BLOOD O2 SATURATION 94.7 % (94-98); ARTERIAL BLOOD PH 7.35 (7.35-7.45); ARTERIAL BLOOD PO2 79.4 mmHg (80-100); ARTERIAL BLOOD TOTAL CO2 41.8 mmol/L (21-25)
[2018-11-23 09:52] LABS: ARTERIAL BLOOD FIO2 40%
[2018-11-23 09:59] LABS: ARTERIAL BLOOD PCO2 72.8 mmHg (35-45)
[2018-11-23] MEDS ORDERED: (PENDING PHARMACY ID) (Roflumilast [Daliresp 500 Mcg Tablet] 500 MCG) PO SCH (10:00)
[2018-11-23] MEDS: ROFLUMILAST 500 MCG TABLET PO SCH (10:22)
[2018-11-23] MEDS: NICOTINE 21 MG/24 HR PATCH.TD24 TD SCH (10:22)
[2018-11-23] MEDS: FONDAPARINUX SODIUM INJ 2.5 MG/0.5 ML DISP.SYRIN SUBCUT SCH (10:22)
[2018-11-23] MEDS: ROPINIROLE HCL 0.25 MG TABLET PO SCH (10:22)
[2018-11-23] MEDS: FAMOTIDINE 20 MG TABLET PO SCH ×2 (10:23→21:35)
[2018-11-23] MEDS: GUAIFENESIN 600 MG TABLET.SA PO SCH ×2 (10:23→21:35)
[2018-11-23] MEDS: LEVOFLOXACIN 750 MG TABLET PO SCH (10:23)
[2018-11-23] MEDS: LEVOTHYROXINE SODIUM 0.025 MG TABLET PO SCH (10:23)
[2018-11-23] MEDS: DOCUSATE SODIUM 100 MG CAPSULE PO SCH (10:24)
[2018-11-23] MEDS: CETIRIZINE 5 MG TABLET PO SCH (10:24)
[2018-11-23] MEDS: ASPIRIN 81 MG TABLET, ENT COATED PO SCH (10:24)
[2018-11-23] MEDS: ACETAMINOPHEN 325 MG TABLET PO PRN (15:23)
--- NOTE | 2018-11-23 17:24 | PDOC PROGRESS REPORT ---
Subjective Progress Note for:: 11/23/18 Subjective:: AUDIE KIMBLE is a 58 year old female with a past medical history of alpha-1 antitrypsin deficiency, COPD, chronic respiratory failure who is home O2 and trilogy dependent, chronic diastolic CHF, pulmonary hypertension, anemia, thrombocytopenia, and tobacco dependence with continuous use. She was admitted 11/22/2017 for a COPD exacerbation. The patient was seen this morning on rounds, she is resting comfortably in bed on BiPAP. She is fully awake, alert and oriented. Mild wheezing auscultated in bilateral lung bases. No other adventitious lung sounds. ABG this morning is improved, the patient is no longer acidotic but remains hypercapnic and mildly hypoxic. Plan to wean ventilator settings according to this morning's ABG. Likely able to wean from BiPAP later today or tomorrow morning. Reason For Visit: COPD EXACERBATION Physical Exam Vital Signs: Temp Pulse Resp BP Pulse Ox 98.7 F 108 H 36 H 116/60 98 11/23/18 04:00 11/23/18 07:00 11/23/18 04:22 11/23/18 04:00 11/23/18 04:22 Pulse Oximeter Continuous Start: 11/22/18 13:41 Freq: RTQ4 Status: Active Protocol: Document 11/23/18 04:22 [facility] (Rec: 11/23/18 04:22 [facility] [id number]) Pulse Oximetry Assessment Oxygen Saturation (92-100) 98 Oxygen Delivery Method Bi-pap Fraction of Inspired Oxygen (FIO2) 50 Equipment Usage Equipment in Use Continuous SpO2 Machine # 1 Intake & Output 11/22/18 11/23/18 11/24/18 06:59 06:59 06:59 Intake Total 1055 Output Total 0 Balance 1055 Weight 68.1 kg General appearance: PRESENT: no acute distress, well-developed, well-nourished Eye exam: PRESENT: conjunctiva pink Mouth exam: PRESENT: moist, tongue midline Neck exam: PRESENT: full ROM Respiratory exam: PRESENT: clear to auscultation lashell, symmetrical, unlabored - ON BIPAP, wheezes - BILATERALLY Pulses: PRESENT: normal radial pulses, normal dorsalis pedis pul Vascular exam: PRESENT: normal capillary refill GI/Abdominal exam: PRESENT: soft. ABSENT: distended, tenderness Rectal exam: PRESENT: deferred Extremities exam: PRESENT: full ROM. ABSENT: pedal edema Musculoskeletal exam: PRESENT: full ROM, normal inspection Neurological exam: PRESENT: alert, awake, oriented to person, oriented to place, oriented to time, oriented to situation Results Laboratory Results: 11/23/18 05:39 11/23/18 05:39 11/22/18 11/22/18 11/22/18 10:25 10:25 10:25 WBC 15.4 H RBC 3.97 Hgb 12.3 Hct 37.4 MCV 94 MCH 31.1 MCHC 33.0 RDW 15.8 H Plt Count 150 Seg Neutrophils % Not Reportable Lymphocytes % Not Reportable Monocytes % Not Reportable Eosinophils % Not Reportable Basophils % Not Reportable Absolute Neutrophils Not Reportable Absolute Lymphocytes Not Reportable Absolute Monocytes Not Reportable Absolute Eosinophils Not Reportable Absolute Basophils Not Reportable Carbonic Acid HCO3/H2CO3 Ratio ABG pH ABG pCO2 ABG pO2 ABG HCO3 ABG O2 Saturation ABG Base Excess VBG pH VBG pCO2 VBG HCO3 VBG Base Excess FiO2 Sodium 144.0 Potassium 4.4 Chloride 93 L Carbon Dioxide 49 H* Anion Gap 2 L BUN 22 H Creatinine 0.35 L Est GFR ( Amer) > 60 Est GFR (Non-Af Amer) > 60 Glucose 114 H Lactic Acid 0.6 L Calcium 9.1 Total Bilirubin 0.8 AST 21 ALT 28 Alkaline Phosphatase 60 Total Protein 6.3 Albumin 4.1 11/22/18 11/22/18 11/23/18 10:25 13:35 05:39 WBC 7.4 RBC 3.29 L Hgb 10.1 L D Hct 30.6 L MCV 93 MCH 30.7 MCHC 33.0 RDW 15.7 H Plt Count 111 L Seg Neutrophils % Not Reportable Lymphocytes % Not Reportable Monocytes % Not Reportable Eosinophils % Not Reportable Basophils % Not Reportable Absolute Neutrophils Not Reportable Absolute Lymphocytes Not Reportable Absolute Monocytes Not Reportable Absolute Eosinophils Not Reportable Absolute Basophils Not Reportable Carbonic Acid 3.19 H HCO3/H2CO3 Ratio 13:1 ABG pH 7.24 L ABG pCO2 106.0 H* ABG pO2 95.3 ABG HCO3 44.0 H ABG O2 Saturation 95.4 ABG Base Excess 12.0 VBG pH 7.29 L VBG pCO2 101.7 H* VBG HCO3 47.5 H VBG Base Excess 15.7 FiO2 60% Sodium Potassium Chloride Carbon Dioxide Anion Gap BUN Creatinine Est GFR ( Amer) Est GFR (Non-Af Amer) Glucose Lactic Acid Calcium Total Bilirubin AST ALT Alkaline Phosphatase Total Protein Albumin 11/23/18 05:39 WBC RBC Hgb Hct MCV MCH MCHC RDW Plt Count Seg Neutrophils % Lymphocytes % Monocytes % Eosinophils % Basophils % Absolute Neutrophils Absolute Lymphocytes Absolute Monocytes Absolute Eosinophils Absolute Basophils Carbonic Acid HCO3/H2CO3 Ratio ABG pH ABG pCO2 ABG pO2 ABG HCO3 ABG O2 Saturation ABG Base Excess VBG pH VBG pCO2 VBG HCO3 VBG Base Excess FiO2 Sodium 145.0 Potassium 4.8 Chloride 100 Carbon Dioxide 41 H* Anion Gap 4 L BUN 21 H Creatinine 0.45 L Est GFR ( Amer) > 60 Est GFR (Non-Af Amer) > 60 Glucose 103 Lactic Acid Calcium 8.6 Total Bilirubin AST ALT Alkaline Phosphatase Total Protein Albumin 11/22/18 11/22/18 10:25 10:25 Creatine Kinase 23 L CK-MB (CK-2) 0.80 Troponin I < 0.012 Impressions: Chest X-Ray 11/22/18 10:12 IMPRESSION: Obstructive lung disease with spotty areas of pulmonary parenchymal scarring. No acute findings. Assessment & Plan - Diagnosis (1) Acute respiratory failure with hypoxia and hypercapnia Is this a current diagnosis for this admission?: Yes Plan: Improving Chest x-ray revealed chronic changes related to COPD; no acute findings. Initial ABG shows respiratory acidosis with hypercapnia and hypoxia. Blood and sputum cultures pending. The patient is admitted to [facility] on continuous cardiac telemetry and pulse oximetry. She is provided supplemental oxygen and BiPAP as needed to maintain oxygen saturations >88% EPAP 14 IPAP 5 FiO2 reduced from 50% -->40% Empirically placed on p.o. Levaquin for Pseudomonas coverage as patient has previous positive blood and sputum results. Continue IV Solu-Medrol. Continue home dose Daliresp, Mucinex, Zyrtec, and Singulair. Consider pulmonology consultation. Patient confirms she is a DNR/DNI. Patient has a history of thrombocytopenia; placed on Arixtra for DVT prophylaxis. (2) COPD exacerbation Is this a current diagnosis for this admission?: Yes Plan: Management as above. (3) GERD (gastroesophageal reflux disease) Is this a current diagnosis for this admission?: Yes Plan: Pepcid twice daily (4) Tobacco dependency Is this a current diagnosis for this admission?: Yes Plan: Smoking cessation is strongly encouraged; nicotine replacement therapies are provided. (5) Restless legs syndrome Is this a current diagnosis for this admission?: Yes Plan: The patient's home dose gabapentin and Requip are continued. - Time Time Spent with patient: 15-24 minutes Anticipated discharge: Home - Inpatient Certification Based on my medical assessment, after consideration of the patient's comorbidities, presenting symptoms, or acuity I expect that the services needed warrant INPATIENT care.: Yes I certify that my determination is in accordance with my understanding of Medicare's requirements for reasonable and necessary INPATIENT services [42 CFR 412.3e].: Yes Medical Necessity: Risk of Complication if Not Cared For in Hospital - Plan Summary Plan Summary: WEAN BIPAP ACCORDING TO ABG
[2018-11-23] MEDS: MONTELUKAST SODIUM 10 MG TABLET PO SCH (18:09)
[2018-11-23] MEDS: GABAPENTIN 100 MG CAPSULE PO SCH (21:35)
[2018-11-24] MEDS: IPRATROPIUM/ALBUTEROL 0.5-2.5 MG/3 ML AMPUL NEB SCH ×5 (01:47→21:02)
[2018-11-24] MEDS: NORMAL SALINE 1000 ML 1,000 ML IV PRN ×3 (02:54→22:38)
[2018-11-24] MEDS: ACETAMINOPHEN 325 MG TABLET PO PRN ×3 (04:47→22:38)
[2018-11-24] MEDS: METHYLPREDNISOLONE INJ 40 MG/1 ML SDV IV SCH ×3 (05:48→17:40)
[2018-11-24 05:54] LABS: HEMATOCRIT 29.6 % (36.0-47.0); HEMOGLOBIN 10.1 g/dL (12.0-15.5); MEAN CORPUSCULAR HEMOGLOBIN 31.9 pg (27.0-33.4); MEAN CORPUSCULAR HGB CONC 34.1 g/dL (32.0-36.0); MEAN CORPUSCULAR VOLUME 94 fl (80-97); PLATELET COUNT 122 10^3/uL (150-450); RED BLOOD COUNT 3.16 10^6/uL (3.72-5.28); RED CELL DISTRIBUTION WIDTH 15.5 % (11.5-14.0); WHITE BLOOD COUNT 8.1 10^3/uL (4.0-10.5)
[2018-11-24] MEDS: LEVALBUTEROL HCL NEB 1.25 MG/3 ML AMPUL NEB PRN (05:57)
[2018-11-24 06:38] LABS: BLOOD UREA NITROGEN 24 mg/dL (7-20); CALCIUM 8.5 mg/dL (8.4-10.2); GLUCOSE 105 mg/dL (75-110); PHOSPHORUS 3.3 mg/dL (2.5-4.5); POTASSIUM 4.6 mmol/L (3.6-5.0)
[2018-11-24 07:12] LABS: ANION GAP 4 (5-19); CHLORIDE 98 mmol/L (98-107)
[2018-11-24 07:14] LABS: CARBON DIOXIDE 40 mmol/L (22-30)
[2018-11-24] MEDS: FONDAPARINUX SODIUM INJ 2.5 MG/0.5 ML DISP.SYRIN SUBCUT SCH (10:06)
[2018-11-24] MEDS: ROFLUMILAST 500 MCG TABLET PO SCH (10:07)
[2018-11-24] MEDS: NICOTINE 21 MG/24 HR PATCH.TD24 TD SCH (10:07)
[2018-11-24] MEDS: ROPINIROLE HCL 0.25 MG TABLET PO SCH (10:07)
[2018-11-24] MEDS: LEVOFLOXACIN 750 MG TABLET PO SCH (10:07)
[2018-11-24] MEDS: DOCUSATE SODIUM 100 MG CAPSULE PO SCH (10:07)
[2018-11-24] MEDS: CETIRIZINE 5 MG TABLET PO SCH (10:07)
[2018-11-24] MEDS: FAMOTIDINE 20 MG TABLET PO SCH ×2 (10:07→22:37)
[2018-11-24] MEDS: LEVOTHYROXINE SODIUM 0.025 MG TABLET PO SCH (10:08)
[2018-11-24] MEDS: GUAIFENESIN 600 MG TABLET.SA PO SCH ×2 (10:08→22:37)
[2018-11-24] MEDS: ASPIRIN 81 MG TABLET, ENT COATED PO SCH (10:08)
--- NOTE | 2018-11-24 22:00 | PDOC PROGRESS REPORT ---
Subjective Progress Note for:: 11/24/18 Subjective:: AUDIE KIMBLE is a 58 year old female with a past medical history of alpha-1 antitrypsin deficiency, COPD, chronic respiratory failure who is home O2 and trilogy dependent, chronic diastolic CHF, pulmonary hypertension, anemia, thrombocytopenia, and tobacco dependence with continuous use. She was admitted 11/22/2017 for a COPD exacerbation. The patient was seen this morning on rounds, she is resting comfortably in bed on supplemental O2 (maintaining SPO2>92%). She is fully awake, alert and oriented. The patient is able to answer questions appropriately but frequently stops to catch her breath, even mid-sentence. (+) wheezing auscultated in bilateral lung bases. No other adventitious lung sounds. Plan to increase steroid dosing ,increase nebulizer frequency and add long acting inhalers to her regimen. Reason For Visit: COPD EXACERBATION Physical Exam Vital Signs: Temp Pulse Resp BP Pulse Ox 97.5 F 104 H 35 H 109/60 100 11/24/18 19:24 11/24/18 19:24 11/24/18 19:24 11/24/18 19:24 11/24/18 19:24 Pulse Oximeter Continuous Start: 11/22/18 13:41 Freq: RTQ4 Status: Active Protocol: Document 11/24/18 16:20 [facility] (Rec: 11/24/18 18:03 [facility] [id number]) Pulse Oximetry Assessment Oxygen Saturation (92-100) 98 Oxygen Delivery Method Bi-pap Fraction of Inspired Oxygen (FIO2) 45 Equipment Usage Equipment in Use Continuous SpO2 Machine # 1 Intake & Output 11/23/18 11/24/18 11/25/18 06:59 06:59 06:59 Intake Total 9 3471 1757 Output Total 0 1300 825 Balance 2054 3951 932 Weight 68.1 kg 69.8 kg General appearance: PRESENT: well-developed, well-nourished Head exam: PRESENT: atraumatic Eye exam: PRESENT: conjunctiva pink, PERRLA Mouth exam: PRESENT: moist, tongue midline Teeth exam: PRESENT: poor dentation Respiratory exam: PRESENT: symmetrical, unlabored, wheezes Cardiovascular exam: PRESENT: RRR Pulses: PRESENT: normal radial pulses, normal dorsalis pedis pul GI/Abdominal exam: PRESENT: soft. ABSENT: distended Rectal exam: PRESENT: deferred Extremities exam: PRESENT: full ROM Musculoskeletal exam: PRESENT: ambulatory, full ROM, normal inspection Neurological exam: PRESENT: alert, awake, oriented to person, oriented to place, oriented to time, oriented to situation Psychiatric exam: PRESENT: appropriate affect Skin exam: PRESENT: dry, intact Results Laboratory Results: 11/24/18 05:35 11/24/18 05:35 11/24/18 11/24/18 05:35 05:35 WBC 8.1 RBC 3.16 L Hgb 10.1 L Hct 29.6 L MCV 94 MCH 31.9 MCHC 34.1 RDW 15.5 H Plt Count 122 L Sodium 142.0 Potassium 4.6 Chloride 98 Carbon Dioxide 40 H* Anion Gap 4 L BUN 24 H Creatinine 0.40 L Est GFR ( Amer) > 60 Est GFR (Non-Af Amer) > 60 Glucose 105 Calcium 8.5 Phosphorus 3.3 Magnesium 2.0 11/23/18 08:20 Clean Catch Midstream Urine Culture - Final Mixed Urogenital Marva 11/22/18 11/22/18 10:25 10:25 Creatine Kinase 23 L CK-MB (CK-2) 0.80 Troponin I < 0.012 Impressions: Chest X-Ray 11/22/18 10:12 IMPRESSION: Obstructive lung disease with spotty areas of pulmonary parenchymal scarring. No acute findings. Status: Imported from PACS Assessment & Plan - Diagnosis (1) Acute respiratory failure with hypoxia and hypercapnia Is this a current diagnosis for this admission?: Yes Plan: Improving Chest x-ray revealed chronic changes related to COPD; no acute findings. Initial ABG shows respiratory acidosis with hypercapnia and hypoxia. Blood and sputum cultures pending. The patient is admitted to [facility] on continuous cardiac telemetry and pulse oximetry. She is provided supplemental oxygen via nasal cannula as needed to maintain oxygen saturations >88% Empirically placed on p.o. Levaquin for Pseudomonas coverage as patient has previous positive blood and sputum results. Increase IV Solu-Medrol dosing Continue home dose Daliresp, Mucinex, Zyrtec, and Singulair. Consider pulmonology consultation. Patient confirms she is a DNR/DNI. Patient has a history of thrombocytopenia; placed on Arixtra for DVT prophylaxis. (2) COPD exacerbation Is this a current diagnosis for this admission?: Yes Plan: Management as above. (3) GERD (gastroesophageal reflux disease) Is this a current diagnosis for this admission?: Yes Plan: Pepcid twice daily (4) Tobacco dependency Is this a current diagnosis for this admission?: Yes Plan: Smoking cessation is strongly encouraged; nicotine replacement therapies are provided. (5) Restless legs syndrome Is this a current diagnosis for this admission?: Yes Plan: The patient's home dose gabapentin and Requip are continued. - Time Time Spent with patient: 15-24 minutes Medications reviewed and adjusted accordingly: Yes Anticipated discharge: Home - Inpatient Certification Based on my medical assessment, after consideration of the patient's comor bidities, presenting symptoms, or acuity I expect that the services needed warrant INPATIENT care.: Yes I certify that my determination is in accordance with my understanding of Medicare's requirements for reasonable and necessary INPATIENT services [42 CFR 412.3e].: Yes Medical Necessity: Need for Nebulizer Therapy and Monitoring of Response
[2018-11-24] MEDS: MONTELUKAST SODIUM 10 MG TABLET PO SCH (22:36)
[2018-11-24] MEDS: GABAPENTIN 100 MG CAPSULE PO SCH (22:37)
[2018-11-24] MEDS: SALMETEROL XINAFOATE DISKUS 50 MCG/1 DOSE 28 DOSE IH SCH (22:37)
[2018-11-25] MEDS: IPRATROPIUM/ALBUTEROL 0.5-2.5 MG/3 ML AMPUL NEB SCH ×6 (00:28→20:36)
[2018-11-25] MEDS: METHYLPREDNISOLONE INJ 40 MG/1 ML SDV IV SCH ×4 (01:17→17:34)
[2018-11-25] MEDS: LEVOTHYROXINE SODIUM 0.025 MG TABLET PO SCH (06:31)
[2018-11-25] MEDS: FONDAPARINUX SODIUM INJ 2.5 MG/0.5 ML DISP.SYRIN SUBCUT SCH (10:28)
[2018-11-25] MEDS: LEVOFLOXACIN 750 MG TABLET PO SCH (10:30)
[2018-11-25] MEDS: ROFLUMILAST 500 MCG TABLET PO SCH (10:30)
[2018-11-25] MEDS: FAMOTIDINE 20 MG TABLET PO SCH ×2 (10:30→21:26)
[2018-11-25] MEDS: CETIRIZINE 5 MG TABLET PO SCH (10:30)
[2018-11-25] MEDS: GUAIFENESIN 600 MG TABLET.SA PO SCH ×2 (10:30→21:26)
[2018-11-25] MEDS: ASPIRIN 81 MG TABLET, ENT COATED PO SCH (10:30)
[2018-11-25] MEDS: NICOTINE 21 MG/24 HR PATCH.TD24 TD SCH (10:30)
[2018-11-25] MEDS: DOCUSATE SODIUM 100 MG CAPSULE PO SCH (10:30)
[2018-11-25] MEDS: NORMAL SALINE 1000 ML 1,000 ML IV PRN (10:32)
[2018-11-25] MEDS: TIOTROPIUM BROMIDE DPI 5 CAP/KIT (18 MCG/CAP) IH SCH (10:35)
[2018-11-25] MEDS: SALMETEROL XINAFOATE DISKUS 50 MCG/1 DOSE 28 DOSE IH SCH ×2 (10:35→21:26)
[2018-11-25] MEDS: MONTELUKAST SODIUM 10 MG TABLET PO SCH (17:32)
[2018-11-25] MEDS: ACETAMINOPHEN 325 MG TABLET PO PRN (17:32)
--- NOTE | 2018-11-25 21:18 | PDOC PROGRESS REPORT ---
Subjective Progress Note for:: 11/25/18 Subjective:: AUDIE KIMBLE is a 58 year old female with a past medical history of alpha-1 antitrypsin deficiency, COPD, chronic respiratory failure who is home O2 and trilogy dependent, chronic diastolic CHF, pulmonary hypertension, anemia, thrombocytopenia, and tobacco dependence with continuous use. She was admitted 11/22/2017 for a COPD exacerbation. The patient was seen this morning on rounds, she is resting comfortably in the bedside recliner on BIPAP. She is fully awake, alert and oriented. The patient states she still feels SOB but states that her symptoms are improving. (+) wheezing auscultated in R lung base. Plan to continue steroids, nebulizers & inhalers. Reason For Visit: COPD EXACERBATION Physical Exam Vital Signs: Temp Pulse Resp BP Pulse Ox 97.9 F 105 H 24 H 119/61 99 11/25/18 19:10 11/25/18 19:10 11/25/18 19:10 11/25/18 19:10 11/25/18 19:10 Pulse Oximeter Continuous Start: 11/22/18 13:41 Freq: RTQ4 Status: Active Protocol: Document 11/25/18 16:18 [facility] (Rec: 11/25/18 17:58 [facility] [id number]) Pulse Oximetry Assessment Oxygen Saturation (92-100) 99 Oxygen Delivery Method Bi-pap Fraction of Inspired Oxygen (FIO2) 35 Equipment Usage Equipment in Use Continuous SpO2 Machine # 1 Intake & Output 11/24/18 11/25/18 11/26/18 06:59 06:59 06:59 Intake Total 3851 2702 3148 Output Total 3611 9185 750 Balance 8742 411 3188 Weight 69.8 kg 68.7 kg General appearance: PRESENT: well-developed, well-nourished Eye exam: PRESENT: conjunctiva pink, PERRLA Mouth exam: PRESENT: moist Teeth exam: PRESENT: poor dentation Neck exam: PRESENT: full ROM Respiratory exam: PRESENT: clear to auscultation lashell, symmetrical, unlabored - on BIPAP, wheezes - RLL Cardiovascular exam: PRESENT: RRR Pulses: PRESENT: normal radial pulses, normal dorsalis pedis pul GI/Abdominal exam: PRESENT: soft. ABSENT: distended Rectal exam: PRESENT: deferred Extremities exam: PRESENT: full ROM Musculoskeletal exam: PRESENT: ambulatory, full ROM Neurological exam: PRESENT: alert, awake, oriented to person, oriented to place, oriented to time, oriented to situation Skin exam: PRESENT: dry, intact, normal color Results Laboratory Results: 11/24/18 05:35 11/24/18 05:35 11/22/18 11/22/18 10:25 10:25 Creatine Kinase 23 L CK-MB (CK-2) 0.80 Troponin I < 0.012 Impressions: Chest X-Ray 11/22/18 10:12 IMPRESSION: Obstructive lung disease with spotty areas of pulmonary parenchymal scarring. No acute findings. Status: Imported from PACS Assessment & Plan - Diagnosis (1) Acute respiratory failure with hypoxia and hypercapnia Is this a current diagnosis for this admission?: Yes Plan: Improving Chest x-ray revealed chronic changes related to COPD; no acute findings. Initial ABG shows respiratory acidosis with hypercapnia and hypoxia. Blood cultures negative The patient is admitted to [facility] on continuous cardiac telemetry and pulse oximetry. She is provided supplemental oxygen via nasal cannula as needed to maintain oxygen saturations >88% Empirically placed on p.o. Levaquin for Pseudomonas coverage as patient has previous positive blood and sputum results. Continue IV Solu-Medrol Continue home dose Daliresp, Mucinex, Zyrtec, and Singulair. Pulmonology consultation, appreciate recommendatoins from leather sorter Patient confirms she is a DNR/DNI. Patient has a history of thrombocytopenia; placed on Arixtra for DVT prophylaxis. (2) COPD exacerbation Is this a current diagnosis for this admission?: Yes Plan: Management as above. (3) GERD (gastroesophageal reflux disease) Is this a current diagnosis for this admission?: Yes Plan: Pepcid twice daily (4) Tobacco dependency Is this a current diagnosis for this admission?: Yes Plan: Smoking cessation is strongly encouraged; nicotine replacement therapies are provided. (5) Restless legs syndrome Is this a current diagnosis for this admission?: Yes Plan: The patient's home dose gabapentin and Requip are continued. - Time Time Spent with patient: 15-24 minutes - Inpatient Certification Based on my medical assessment, after consideration of the patient's comorbidities, presenting symptoms, or acuity I expect that the services needed warrant INPATIENT care.: Yes I certify that my determination is in accordance with my understanding of Medicare's requirements for reasonable and necessary INPATIENT services [42 CFR 412.3e].: Yes Medical Necessity: Need for Nebulizer Therapy and Monitoring of Response - Plan Summary Plan Summary: CONTINUE CURRENT TREATMENT PLAN. NO CHANGES AT THIS TIME. WAITING FOR PULMONARY CONSULT
[2018-11-25] MEDS: ROPINIROLE HCL 0.25 MG TABLET PO SCH (21:25)
[2018-11-25] MEDS: GABAPENTIN 100 MG CAPSULE PO SCH (21:25)
[2018-11-26] MEDS: METHYLPREDNISOLONE INJ 40 MG/1 ML SDV IV SCH ×4 (00:02→17:26)
[2018-11-26] MEDS: IPRATROPIUM/ALBUTEROL 0.5-2.5 MG/3 ML AMPUL NEB SCH ×6 (00:30→21:03)
[2018-11-26] MEDS: LEVOTHYROXINE SODIUM 0.025 MG TABLET PO SCH (06:07)
[2018-11-26] MEDS: ACETAMINOPHEN 325 MG TABLET PO PRN ×2 (06:07→13:46)
[2018-11-26 06:34] LABS: BLOOD UREA NITROGEN 20 mg/dL (7-20); CALCIUM 8.3 mg/dL (8.4-10.2); GLUCOSE 139 mg/dL (75-110); POTASSIUM 3.9 mmol/L (3.6-5.0)
[2018-11-26 07:33] LABS: CHLORIDE 99 mmol/L (98-107); SODIUM 141.9 mmol/L (137-145)
[2018-11-26 07:36] LABS: ANION GAP 1 (5-19); CARBON DIOXIDE 42 mmol/L (22-30)
[2018-11-26] MEDS: SALMETEROL XINAFOATE DISKUS 50 MCG/1 DOSE 28 DOSE IH SCH ×2 (09:19→22:19)
[2018-11-26] MEDS: FONDAPARINUX SODIUM INJ 2.5 MG/0.5 ML DISP.SYRIN SUBCUT SCH (09:20)
[2018-11-26] MEDS: DOCUSATE SODIUM 100 MG CAPSULE PO SCH (09:21)
[2018-11-26] MEDS: LEVOFLOXACIN 750 MG TABLET PO SCH (09:21)
[2018-11-26] MEDS: ASPIRIN 81 MG TABLET, ENT COATED PO SCH (09:21)
[2018-11-26] MEDS: FAMOTIDINE 20 MG TABLET PO SCH ×2 (09:21→22:18)
[2018-11-26] MEDS: GUAIFENESIN 600 MG TABLET.SA PO SCH ×2 (09:21→22:18)
[2018-11-26] MEDS: CETIRIZINE 5 MG TABLET PO SCH (09:21)
[2018-11-26] MEDS: ROFLUMILAST 500 MCG TABLET PO SCH (09:21)
[2018-11-26] MEDS: TIOTROPIUM BROMIDE DPI 5 CAP/KIT (18 MCG/CAP) IH SCH (13:53)
[2018-11-26] MEDS: NICOTINE 21 MG/24 HR PATCH.TD24 TD SCH (13:54)
[2018-11-26] MEDS: MONTELUKAST SODIUM 10 MG TABLET PO SCH (17:26)
--- NOTE | 2018-11-26 20:02 | PDOC PROGRESS REPORT ---
Subjective Progress Note for:: 11/26/18 Subjective:: AUDIE KIMBLE is a 58 year old female with a past medical history of alpha-1 antitrypsin deficiency, COPD, chronic respiratory failure who is home O2 and trilogy dependent, chronic diastolic CHF, pulmonary hypertension, anemia, thrombocytopenia, and tobacco dependence with continuous use. She was admitted 11/22/2017 for a COPD exacerbation. The patient was seen this morning on rounds, she is resting comfortably in the bed on nasal cannula. She is fully awake, alert and oriented. The patient states she still feels SOB but states that her symptoms are improving. (+) mild wheezing auscultated in all lung malik. Plan to increase steroid dosage, continue nebulizers, inhalers and antibiotics. Reason For Visit: COPD EXACERBATION Physical Exam Vital Signs: Temp Pulse Resp BP Pulse Ox 98.1 F 110 H 20 128/69 H 100 11/26/18 15:51 11/26/18 16:36 11/26/18 16:36 11/26/18 15:51 11/26/18 16:36 Pulse Oximeter Continuous Start: 11/22/18 13:41 Freq: RTQ4 Status: Active Protocol: Document 11/26/18 16:36 [facility] (Rec: 11/26/18 19:15 [facility] [id number]) Pulse Oximetry Assessment Oxygen Saturation (92-100) 100 Oxygen Flow Rate (L/min) 4 Oxygen Delivery Method Nasal Cannula Fraction of Inspired Oxygen (FIO2) 36 Equipment Usage Equipment in Use Continuous SpO2 Machine # 1 Intake & Output 11/25/18 11/26/18 11/27/18 06:59 06:59 06:59 Intake Total 2705 3148 1217 Output Total 9016 750 Balance 877 5868 1217 Weight 68.7 kg 72.2 kg General appearance: PRESENT: well-developed, well-nourished Head exam: PRESENT: atraumatic Eye exam: PRESENT: conjunctiva pink, PERRLA Mouth exam: PRESENT: moist, tongue midline Neck exam: PRESENT: full ROM Respiratory exam: PRESENT: symmetrical, wheezes Cardiovascular exam: PRESENT: RRR Vascular exam: PRESENT: normal capillary refill GI/Abdominal exam: PRESENT: soft. ABSENT: distended Rectal exam: PRESENT: deferred Extremities exam: PRESENT: full ROM Musculoskeletal exam: PRESENT: ambulatory, full ROM Neurological exam: PRESENT: alert, awake, oriented to person, oriented to place, oriented to time, oriented to situation Psychiatric exam: PRESENT: appropriate affect Skin exam: PRESENT: dry, intact Results Laboratory Results: 11/24/18 05:35 11/26/18 05:08 11/26/18 05:08 Sodium 141.9 Potassium 3.9 Chloride 99 Carbon Dioxide 42 H* Anion Gap 1 L BUN 20 Creatinine 0.40 L Est GFR ( Amer) > 60 Est GFR (Non-Af Amer) > 60 Glucose 139 H Calcium 8.3 L Magnesium 2.2 11/22/18 11/22/18 10:25 10:25 Creatine Kinase 23 L CK-MB (CK-2) 0.80 Troponin I < 0.012 Impressions: Chest X-Ray 11/22/18 10:12 IMPRESSION: Obstructive lung disease with spotty areas of pulmonary parenchymal scarring. No acute findings. Status: Imported from PACS Assessment & Plan - Diagnosis (1) Acute respiratory failure with hypoxia and hypercapnia Is this a current diagnosis for this admission?: Yes Plan: Improving Chest x-ray revealed chronic changes related to COPD; no acute findings. Initial ABG shows respiratory acidosis with hypercapnia and hypoxia. Blood cultures negative The patient is admitted to [facility] on continuous cardiac telemetry and pulse oximetry. She is provided supplemental oxygen via nasal cannula as needed to maintain oxygen saturations >88% Empirically placed on p.o. Levaquin for Pseudomonas coverage as patient has previous positive blood and sputum results. Continue IV Solu-Medrol, increase dosage today for persistent wheezing Continue home dose Daliresp, Mucinex, Zyrtec, and Singulair. Pulmonology consultation, appreciate recommendatoins from business management associate Patient confirms she is a DNR/DNI. Patient has a history of thrombocytopenia; placed on Arixtra for DVT prophylaxis. (2) COPD exacerbation Is this a current diagnosis for this admission?: Yes Plan: Management as above. (3) GERD (gastroesophageal reflux disease) Is this a current diagnosis for this admission?: Yes Plan: Pepcid twice daily (4) Tobacco dependency Is this a current diagnosis for this admission?: Yes Plan: Smoking cessation is strongly encouraged; nicotine replacement therapies are provided. (5) Restless legs syndrome Is this a current diagnosis for this admission?: Yes Plan: The patient's home dose gabapentin and Requip are continued. - Time Time Spent with patient: 15-24 minutes Medications reviewed and adjusted accordingly: Yes Anticipated discharge: Home - Inpatient Certification Based on my medical assessment, after consideration of the patient's comorbidities, presenting symptoms, or acuity I expect that the services needed warrant INPATIENT care.: Yes I certify that my determination is in accordance with my understanding of Medicare's requirements for reasonable and necessary INPATIENT services [42 CFR 412.3e].: Yes Medical Necessity: Need for Nebulizer Therapy and Monitoring of Response
[2018-11-26] MEDS: ROPINIROLE HCL 0.25 MG TABLET PO SCH (22:18)
[2018-11-26] MEDS: GABAPENTIN 100 MG CAPSULE PO SCH (22:18)
[2018-11-26] MEDS: METHYLPREDNISOLONE INJ 125 MG/2 ML SDV IV SCH (23:48)
[2018-11-27] MEDS ORDERED: METHYLPREDNISOLONE INJ 40 MG/1 ML SDV IV SCH
[2018-11-27] MEDS: IPRATROPIUM/ALBUTEROL 0.5-2.5 MG/3 ML AMPUL NEB SCH ×6 (00:12→20:46)
[2018-11-27] MEDS: METHYLPREDNISOLONE INJ 125 MG/2 ML SDV IV SCH ×3 (05:49→18:34)
[2018-11-27] MEDS: LEVOTHYROXINE SODIUM 0.025 MG TABLET PO SCH (05:49)
[2018-11-27] MEDS: ACETAMINOPHEN 325 MG TABLET PO PRN (05:53)
[2018-11-27 06:29] LABS: HEMATOCRIT 28.1 % (36.0-47.0); HEMOGLOBIN 9.5 g/dL (12.0-15.5); MEAN CORPUSCULAR HEMOGLOBIN 31.4 pg (27.0-33.4); MEAN CORPUSCULAR HGB CONC 33.9 g/dL (32.0-36.0); MEAN CORPUSCULAR VOLUME 93 fl (80-97); PLATELET COUNT 110 10^3/uL (150-450); RED BLOOD COUNT 3.03 10^6/uL (3.72-5.28); RED CELL DISTRIBUTION WIDTH 15.4 % (11.5-14.0); WHITE BLOOD COUNT 5.2 10^3/uL (4.0-10.5)
[2018-11-27 07:01] LABS: ALANINE AMINOTRANSFERASE 20 U/L (9-52); ALBUMIN 3.2 g/dL (3.5-5.0); ALKALINE PHOSPHATASE 32 U/L (38-126); ASPARTATE AMINO TRANSFERASE 11 U/L (14-36); BILIRUBIN,DIRECT 0.3 mg/dL (0.0-0.4); BILIRUBIN,TOTAL 0.4 mg/dL (0.2-1.3); BLOOD UREA NITROGEN 17 mg/dL (7-20); CALCIUM 8.4 mg/dL (8.4-10.2); GLUCOSE 130 mg/dL (75-110)
[2018-11-27 07:28] LABS: CHLORIDE 95 mmol/L (98-107); SODIUM 140.6 mmol/L (137-145)
[2018-11-27 07:33] LABS: ANION GAP 3 (5-19); CARBON DIOXIDE 43 mmol/L (22-30)
[2018-11-27] MEDS: SALMETEROL XINAFOATE DISKUS 50 MCG/1 DOSE 28 DOSE IH SCH ×2 (09:09→22:42)
[2018-11-27] MEDS: ASPIRIN 81 MG TABLET, ENT COATED PO SCH (09:09)
[2018-11-27] MEDS: ROFLUMILAST 500 MCG TABLET PO SCH (09:10)
[2018-11-27] MEDS: LEVOFLOXACIN 750 MG TABLET PO SCH (09:10)
[2018-11-27] MEDS: CETIRIZINE 5 MG TABLET PO SCH (09:10)
[2018-11-27] MEDS: GUAIFENESIN 600 MG TABLET.SA PO SCH ×2 (09:10→22:41)
[2018-11-27] MEDS: DOCUSATE SODIUM 100 MG CAPSULE PO SCH (09:10)
[2018-11-27] MEDS: FAMOTIDINE 20 MG TABLET PO SCH ×2 (09:10→22:41)
[2018-11-27] MEDS: FONDAPARINUX SODIUM INJ 2.5 MG/0.5 ML DISP.SYRIN SUBCUT SCH (09:10)
[2018-11-27] MEDS: TIOTROPIUM BROMIDE DPI 5 CAP/KIT (18 MCG/CAP) IH SCH (09:10)
[2018-11-27] MEDS: NICOTINE 21 MG/24 HR PATCH.TD24 TD SCH (09:11)
--- NOTE | 2018-11-27 15:59 | PDOC PROGRESS REPORT ---
Subjective Progress Note for:: 11/27/18 Subjective:: AUDIE KIMBLE is a 58 year old female with a past medical history of alpha-1 antitrypsin deficiency, COPD, chronic respiratory failure who is home O2 and trilogy dependent, chronic diastolic CHF, pulmonary hypertension, anemia, thrombocytopenia, and tobacco dependence with continuous use. She was admitted 11/22/2017 for a COPD exacerbation. The patient was seen this morning on rounds, she is resting comfortably in the bed on nasal cannula. She is fully awake, alert and oriented. The patient states she's had no change in her symptoms. (+) mild wheezing auscultated in all lung malik, unchanged from yesterday. The patient reports she normally uses a trilogy at home, will change BIPAP settings to AVAPS in hopes of improving her respiratory status. Plan to consult pulmonology for assistance. Reason For Visit: COPD EXACERBATION Physical Exam Vital Signs: Temp Pulse Resp BP Pulse Ox 98.3 F 109 H 20 127/67 H 100 11/27/18 14:50 11/27/18 14:50 11/27/18 14:50 11/27/18 14:50 11/27/18 14:50 Pulse Oximeter Continuous Start: 11/22/18 13:41 Freq: RTQ4 Status: Active Protocol: Document 11/27/18 11:55 [facility] (Rec: 11/27/18 11:57 [facility] [id number]) Pulse Oximetry Assessment Oxygen Saturation (92-100) 98 Oxygen Flow Rate (L/min) 3.5 Oxygen Delivery Method Nasal Cannula Equipment Usage Equipment in Use Continuous SpO2 Machine # 1 Intake & Output 11/26/18 11/27/18 11/28/18 06:59 06:59 06:59 Intake Total 3148 1217 325 Output Total 750 Balance 9618 1217 325 Weight 72.2 kg 72.5 kg General appearance: PRESENT: no acute distress, well-developed, well-nourished Head exam: PRESENT: atraumatic Eye exam: PRESENT: conjunctiva pink, PERRLA Mouth exam: PRESENT: moist, tongue midline Neck exam: PRESENT: full ROM Respiratory exam: PRESENT: clear to auscultation lashell, symmetrical, wheezes - all lung malik Cardiovascular exam: PRESENT: RRR Pulses: PRESENT: normal radial pulses, normal dorsalis pedis pul Vascular exam: PRESENT: normal capillary refill GI/Abdominal exam: PRESENT: soft. ABSENT: distended, tenderness Rectal exam: PRESENT: deferred Extremities exam: PRESENT: full ROM. ABSENT: pedal edema Musculoskeletal exam: PRESENT: ambulatory, full ROM, normal inspection Neurological exam: PRESENT: alert, awake, oriented to person, oriented to place, oriented to time, oriented to situation Psychiatric exam: PRESENT: appropriate affect Skin exam: PRESENT: dry, intact, normal color Results Laboratory Results: 11/27/18 05:33 11/27/18 05:33 11/27/18 11/27/18 05:33 05:33 WBC 5.2 RBC 3.03 L Hgb 9.5 L Hct 28.1 L MCV 93 MCH 31.4 MCHC 33.9 RDW 15.4 H Plt Count 110 L Sodium 140.6 Potassium 4.0 Chloride 95 L Carbon Dioxide 43 H* Anion Gap 3 L BUN 17 Creatinine 0.39 L Est GFR ( Amer) > 60 Est GFR (Non-Af Amer) > 60 Glucose 130 H Calcium 8.4 Total Bilirubin 0.4 AST 11 L ALT 20 Alkaline Phosphatase 32 L Total Protein 5.0 L Albumin 3.2 L 11/22/18 11:54 Blood Blood Culture - Final NO GROWTH IN 5 DAYS 11/22/18 10:25 Blood Blood Culture - Final NO GROWTH IN 5 DAYS 11/22/18 11/22/18 10:25 10:25 Creatine Kinase 23 L CK-MB (CK-2) 0.80 Troponin I < 0.012 Impressions: Chest X-Ray 11/22/18 10:12 IMPRESSION: Obstructive lung disease with spotty areas of pulmonary parenchymal scarring. No acute findings. Status: Imported from PACS Assessment & Plan - Diagnosis (1) Acute respiratory failure with hypoxia and hypercapnia Is this a current diagnosis for this admission?: Yes Plan: Unchanged Chest x-ray revealed chronic changes related to COPD; no acute findings. Initial ABG shows respiratory acidosis with hypercapnia and hypoxia. Blood cultures negative The patient is admitted to [facility] on continuous cardiac telemetry and pulse oximetry. She is provided BIPAP to maintain oxygen saturations >88%. Change settings to AVAPS, similar to her home trilogy Supplemental O2 via nasal cannula at mealtime Empirically placed on p.o. Levaquin for Pseudomonas coverage as patient has previous positive blood and sputum results. Continue IV Solu-Medrol Continue home dose Daliresp, Mucinex, Zyrtec, and Singulair. Pulmonology consultation, appreciate recommendatoins Patient confirms she is a DNR/DNI. Patient has a history of thrombocytopenia; placed on Arixtra for DVT proph ylaxis. (2) COPD exacerbation Is this a current diagnosis for this admission?: Yes Plan: Management as above. (3) GERD (gastroesophageal reflux disease) Is this a current diagnosis for this admission?: Yes Plan: Pepcid twice daily (4) Tobacco dependency Is this a current diagnosis for this admission?: Yes Plan: Smoking cessation is strongly encouraged; nicotine replacement therapies are provided. (5) Restless legs syndrome Is this a current diagnosis for this admission?: Yes Plan: The patient's home dose gabapentin and Requip are continued. - Time Time Spent with patient: 15-24 minutes Medications reviewed and adjusted accordingly: Yes Anticipated discharge: Home - Inpatient Certification Based on my medical assessment, after consideration of the patient's comorbidities, presenting symptoms, or acuity I expect that the services needed warrant INPATIENT care.: Yes I certify that my determination is in accordance with my understanding of Medicare's requirements for reasonable and necessary INPATIENT services [42 CFR 412.3e].: Yes Medical Necessity: Need for Nebulizer Therapy and Monitoring of Response, Risk of Complication if Not Cared For in Hospital
[2018-11-27] MEDS: MONTELUKAST SODIUM 10 MG TABLET PO SCH (18:38)
[2018-11-27] MEDS: ROPINIROLE HCL 0.25 MG TABLET PO SCH (22:41)
[2018-11-27] MEDS: GABAPENTIN 100 MG CAPSULE PO SCH (22:41)
[2018-11-28] MEDS: IPRATROPIUM/ALBUTEROL 0.5-2.5 MG/3 ML AMPUL NEB SCH ×6 (00:38→21:00)
[2018-11-28] MEDS: METHYLPREDNISOLONE INJ 125 MG/2 ML SDV IV SCH ×4 (00:49→18:01)
[2018-11-28] MEDS: LEVOTHYROXINE SODIUM 0.025 MG TABLET PO SCH (05:43)
[2018-11-28] MEDS: ACETAMINOPHEN 325 MG TABLET PO PRN (05:45)
[2018-11-28] MEDS: FONDAPARINUX SODIUM INJ 2.5 MG/0.5 ML DISP.SYRIN SUBCUT SCH (09:06)
[2018-11-28] MEDS: FAMOTIDINE 20 MG TABLET PO SCH ×2 (09:08→21:54)
[2018-11-28] MEDS: CETIRIZINE 5 MG TABLET PO SCH (09:08)
[2018-11-28] MEDS: DOCUSATE SODIUM 100 MG CAPSULE PO SCH (09:08)
[2018-11-28] MEDS: NICOTINE 21 MG/24 HR PATCH.TD24 TD SCH (09:08)
[2018-11-28] MEDS: ROFLUMILAST 500 MCG TABLET PO SCH (09:08)
[2018-11-28] MEDS: TIOTROPIUM BROMIDE DPI 5 CAP/KIT (18 MCG/CAP) IH SCH (09:08)
[2018-11-28] MEDS: ASPIRIN 81 MG TABLET, ENT COATED PO SCH (09:08)
[2018-11-28] MEDS: SALMETEROL XINAFOATE DISKUS 50 MCG/1 DOSE 28 DOSE IH SCH ×2 (09:08→21:53)
[2018-11-28] MEDS: GUAIFENESIN 600 MG TABLET.SA PO SCH ×2 (09:08→21:54)
[2018-11-28] MEDS: LEVOFLOXACIN 750 MG TABLET PO SCH (09:09)
[2018-11-28] MEDS: MONTELUKAST SODIUM 10 MG TABLET PO SCH (18:01)
[2018-11-28] MEDS ORDERED: BENZOCAINE/MENTHOL SORE THROAT LOZENGE BUCCAL PRN (18:46)
[2018-11-28] MEDS: ROPINIROLE HCL 0.25 MG TABLET PO SCH (21:54)
[2018-11-28] MEDS: GABAPENTIN 100 MG CAPSULE PO SCH (21:54)
--- NOTE | 2018-11-28 22:06 | PDOC PROGRESS REPORT ---
Subjective Progress Note for:: 11/28/18 Subjective:: AUDIE KIMBLE is a 58 year old female with a past medical history of alpha-1 antitrypsin deficiency, COPD, chronic respiratory failure who is home O2 and trilogy dependent, chronic diastolic CHF, pulmonary hypertension, anemia, thrombocytopenia, and tobacco dependence with continuous use. She was admitted 11/22/2017 for a COPD exacerbation. The patient was seen this morning on rounds, she is resting comfortably in the bed on BIPAP. She is fully awake, alert and oriented. The patient states she feels better on the AVAPS setting. Wheezing has greatly improved, very minimal heard in the b/l bases. Awaiting pulmonology consult. Patient remains in IMCU for tenuous respiratory status. Reason For Visit: COPD EXACERBATION Physical Exam Vital Signs: Temp Pulse Resp BP Pulse Ox 98.1 F 85 28 H 123/63 98 11/28/18 19:12 11/28/18 21:01 11/28/18 21:01 11/28/18 19:12 11/28/18 21:01 Pulse Oximeter Continuous Start: 11/22/18 13:41 Freq: RTQ4 Status: Active Protocol: Document 11/28/18 21:01 [facility] (Rec: 11/28/18 21:04 [facility] [id number]) Pulse Oximetry Assessment Oxygen Saturation (92-100) 98 Oxygen Delivery Method Bi-pap Fraction of Inspired Oxygen (FIO2) 35 Equipment Usage Equipment in Use Continuous SpO2 Machine # 1 Intake & Output 11/27/18 11/28/18 11/29/18 06:59 06:59 06:59 Intake Total 1217 1112 1025 Balance 1217 1112 1025 Weight 72.5 kg 66.4 kg General appearance: PRESENT: well-developed, well-nourished Eye exam: PRESENT: conjunctiva pink, PERRLA Mouth exam: PRESENT: neck supple, tongue midline Neck exam: PRESENT: full ROM Respiratory exam: PRESENT: symmetrical, unlabored, wheezes - very mild. greatly improved Cardiovascular exam: PRESENT: RRR Pulses: PRESENT: normal radial pulses, normal dorsalis pedis pul Vascular exam: PRESENT: normal capillary refill GI/Abdominal exam: PRESENT: soft. ABSENT: distended, tenderness Extremities exam: PRESENT: full ROM Musculoskeletal exam: PRESENT: ambulatory, full ROM Neurological exam: PRESENT: alert, awake, oriented to person, oriented to place, oriented to time, oriented to situation Psychiatric exam: PRESENT: appropriate affect Skin exam: PRESENT: dry, intact, normal color Results Laboratory Results: 11/27/18 05:33 11/27/18 05:33 11/22/18 11/22/18 10:25 10:25 Creatine Kinase 23 L CK-MB (CK-2) 0.80 Troponin I < 0.012 Impressions: Chest X-Ray 11/22/18 10:12 IMPRESSION: Obstructive lung disease with spotty areas of pulmonary parenchymal scarring. No acute findings. Status: Imported from PACS Assessment & Plan - Diagnosis (1) Acute respiratory failure with hypoxia and hypercapnia Is this a current diagnosis for this admission?: Yes Plan: Improved Chest x-ray revealed chronic changes related to COPD; no acute findings. Initial ABG shows respiratory acidosis with hypercapnia and hypoxia. Blood cultures negative The patient is admitted to [facility] on continuous cardiac telemetry and pulse oximetry. She is provided BIPAP/AVAPS to maintain oxygen saturations >88%. Supplemental O2 via nasal cannula at mealtime Empirically placed on p.o. Levaquin for Pseudomonas coverage as patient has previous positive blood and sputum results. Continue IV Solu-Medrol Continue home dose Daliresp, Mucinex, Zyrtec, and Singulair. Pulmonology consultation, appreciate recommendatoins Patient confirms she is a DNR/DNI. Patient has a history of thrombocytopenia; placed on Arixtra for DVT prophylaxis. (2) COPD exacerbation Is this a current diagnosis for this admission?: Yes Plan: Management as above. (3) GERD (gastroesophageal reflux disease) Is this a current diagnosis for this admission?: Yes Plan: Pepcid twice daily (4) Tobacco dependency Is this a current diagnosis for this admission?: Yes Plan: Smoking cessation is strongly encouraged; nicotine replacement therapies are provided. (5) Restless legs syndrome Is this a current diagnosis for this admission?: Yes Plan: The patient's home dose gabapentin and Requip are continued. - Time Time Spent with patient: 15-24 minutes Medications reviewed and adjusted accordingly: Yes Anticipated discharge: Home - Inpatient Certification Based on my medical assessment, after consideration of the patient's comorbidities, presenting symptoms, or acuity I expect that the services needed warrant INPATIENT care.: Yes I certify that my determination is in accordance with my understanding of Medicare's requirements for reasonable and necessary INPATIENT services [42 CFR 412.3e].: Yes Medical Necessity: Need for Nebulizer Therapy and Monitoring of Response - Plan Summary Plan Summary: initiate cpt. continue bipap/avaps
[2018-11-29] MEDS: METHYLPREDNISOLONE INJ 125 MG/2 ML SDV IV SCH ×5 (00:14→23:43)
[2018-11-29] MEDS: IPRATROPIUM/ALBUTEROL 0.5-2.5 MG/3 ML AMPUL NEB SCH ×6 (00:27→20:23)
[2018-11-29] MEDS: ACETAMINOPHEN 325 MG TABLET PO PRN ×2 (01:15→15:40)
[2018-11-29] MEDS: LEVOTHYROXINE SODIUM 0.025 MG TABLET PO SCH (05:32)
[2018-11-29] MEDS: FONDAPARINUX SODIUM INJ 2.5 MG/0.5 ML DISP.SYRIN SUBCUT SCH (09:16)
[2018-11-29] MEDS: CETIRIZINE 5 MG TABLET PO SCH (09:16)
[2018-11-29] MEDS: LEVOFLOXACIN 750 MG TABLET PO SCH (09:16)
[2018-11-29] MEDS: ASPIRIN 81 MG TABLET, ENT COATED PO SCH (09:16)
[2018-11-29] MEDS: GUAIFENESIN 600 MG TABLET.SA PO SCH ×2 (09:16→21:42)
[2018-11-29] MEDS: FAMOTIDINE 20 MG TABLET PO SCH ×2 (09:16→21:42)
[2018-11-29] MEDS: DOCUSATE SODIUM 100 MG CAPSULE PO SCH (09:16)
[2018-11-29] MEDS: ROFLUMILAST 500 MCG TABLET PO SCH (09:17)
[2018-11-29] MEDS: TIOTROPIUM BROMIDE DPI 5 CAP/KIT (18 MCG/CAP) IH SCH (09:17)
[2018-11-29] MEDS: NICOTINE 21 MG/24 HR PATCH.TD24 TD SCH (09:17)
[2018-11-29] MEDS: SALMETEROL XINAFOATE DISKUS 50 MCG/1 DOSE 28 DOSE IH SCH ×2 (09:17→21:42)
[2018-11-29 09:58] LABS: ARTERIAL BLOOD BASE EXCESS 12.8 mmol/L; ARTERIAL BLOOD H2CO3 1.92 mmol/L (1.05-1.35); ARTERIAL BLOOD HCO3 39.8 mmol/L (20-24); ARTERIAL BLOOD O2 SATURATION 96.8 % (94-98); ARTERIAL BLOOD PCO2 63.8 mmHg (35-45); ARTERIAL BLOOD PH 7.41 (7.35-7.45); ARTERIAL BLOOD PO2 90.6 mmHg (80-100); ARTERIAL BLOOD TOTAL CO2 41.8 mmol/L (21-25)
[2018-11-29 09:59] LABS: ARTERIAL BLOOD FIO2 3.5L
[2018-11-29] MEDS: MONTELUKAST SODIUM 10 MG TABLET PO SCH (17:35)
[2018-11-29] MEDS: GABAPENTIN 100 MG CAPSULE PO SCH (21:42)
[2018-11-29] MEDS: ROPINIROLE HCL 0.25 MG TABLET PO SCH (21:42)
--- NOTE | 2018-11-29 22:13 | PDOC PROGRESS REPORT ---
Subjective Progress Note for:: 11/29/18 Subjective:: AUDIE KIMBLE is a 58 year old female with a past medical history of alpha-1 antitrypsin deficiency, COPD, chronic respiratory failure who is home O2 and trilogy dependent, chronic diastolic CHF, pulmonary hypertension, anemia, thrombocytopenia, and tobacco dependence with continuous use. She was admitted 11/22/2017 for a COPD exacerbation. The patient was seen this morning on rounds, she is resting comfortably in the bed on nasal cannula She is fully awake, alert and oriented. The patient states she feels better on the AVAPS setting. Wheezing has resolved. Patient still requiring BIPAP/AVAPS intermittently during the day. Dr. Nagy came to see the patient this afternoon, he recommended a flutter valve and mucomyst nebulizer treatments. Patient remains in IMCU for tenuous respiratory status. Reason For Visit: COPD EXACERBATION Physical Exam Vital Signs: Temp Pulse Resp BP Pulse Ox 98.4 F 94 28 H 131/67 H 100 11/29/18 20:44 11/29/18 20:44 11/29/18 20:44 11/29/18 20:44 11/29/18 20:44 Pulse Oximeter Continuous Start: 11/22/18 13:41 Freq: RTQ4 Status: Active Protocol: Document 11/29/18 20:23 [facility] (Rec: 11/29/18 21:49 [facility] [id number]) Pulse Oximetry Assessment Oxygen Saturation (92-100) 98 Oxygen Delivery Method Bi-pap Fraction of Inspired Oxygen (FIO2) 35 Equipment Usage Equipment in Use Continuous SpO2 Machine # 1 Intake & Output 11/28/18 11/29/18 11/30/18 06:59 06:59 06:59 Intake Total 1112 1687 1375 Balance 1112 1687 1375 Weight 66.4 kg 72.1 kg General appearance: PRESENT: well-developed, well-nourished Head exam: PRESENT: atraumatic Eye exam: PRESENT: conjunctiva pink, PERRLA Mouth exam: PRESENT: moist Neck exam: PRESENT: full ROM Respiratory exam: PRESENT: clear to auscultation lashell, symmetrical, unlabored Cardiovascular exam: PRESENT: RRR Pulses: PRESENT: normal radial pulses, normal dorsalis pedis pul GI/Abdominal exam: PRESENT: soft. ABSENT: distended, tenderness Rectal exam: PRESENT: deferred Extremities exam: PRESENT: full ROM Musculoskeletal exam: PRESENT: ambulatory, full ROM, normal inspection Neurological exam: PRESENT: alert, awake, oriented to person, oriented to place, oriented to time, oriented to situation Psychiatric exam: PRESENT: appropriate affect Skin exam: PRESENT: dry, intact, normal color Results Laboratory Results: 11/27/18 05:33 11/27/18 05:33 11/29/18 09:35 Carbonic Acid 1.92 H HCO3/H2CO3 Ratio 20:1 ABG pH 7.41 ABG pCO2 63.8 H ABG pO2 90.6 ABG HCO3 39.8 H ABG O2 Saturation 96.8 ABG Base Excess 12.8 FiO2 3.5L 11/22/18 11/22/18 10:25 10:25 Creatine Kinase 23 L CK-MB (CK-2) 0.80 Troponin I < 0.012 Impressions: Chest X-Ray 11/22/18 10:12 IMPRESSION: Obstructive lung disease with spotty areas of pulmonary parenchymal scarring. No acute findings. Status: Imported from PACS Assessment & Plan - Diagnosis (1) Acute respiratory failure with hypoxia and hypercapnia Is this a current diagnosis for this admission?: Yes Plan: Improved Chest x-ray revealed chronic changes related to COPD; no acute findings. Initial ABG shows respiratory acidosis with hypercapnia and hypoxia. Blood cultures negative The patient is admitted to [facility] on continuous cardiac telemetry and pulse oximetry. She is provided BIPAP/AVAPS to maintain oxygen saturations >88%. Supplemental O2 via nasal cannula at mealtime Empirically placed on p.o. Levaquin for Pseudomonas coverage as patient has previous positive blood and sputum results. Continue IV Solu-Medrol Continue home dose Daliresp, Mucinex, Zyrtec, and Singulair. Pulmonology consultation, appreciate recommendatoins Patient confirms she is a DNR/DNI. Patient has a history of thrombocytopenia; placed on Arixtra for DVT prophylaxis. (2) COPD exacerbation Is this a current diagnosis for this admission?: Yes Plan: Management as above. (3) GERD (gastroesophageal reflux disease) Is this a current diagnosis for this admission?: Yes Plan: Pepcid twice daily (4) Tobacco dependency Is this a current diagnosis for this admission?: Yes Plan: Smoking cessation is strongly encouraged; nicotine replacement therapies are provided. (5) Restless legs syndrome Is this a current diagnosis for this admission?: Yes Plan: The patient's home dose gabapentin and Requip are continued. - Time Time Spent with patient: 15-24 minutes Medications reviewed and adjusted accordingly: Yes Anticipated discharge: Home - Inpatient Certification Based on my medical assessment, after consideration of the patient's comorbidities, presenting symptoms, or acuity I expect that the services needed warrant INPATIENT care.: Yes I certify that my determination is in accordance with my understanding of Medicare's requirements for reasonable and necessary INPATIENT services [42 CFR 412.3e].: Yes Medical Necessity: Need for Nebulizer Therapy and Monitoring of Response, Risk of Complication if Not Cared For in Hospital - Plan Summary Plan Summary: continue neds, abx, mucinex, inhalers. appreciate dr. nagy's recs for mucomyst and flutter valve. initiate chest pt.
[2018-11-30] MEDS: IPRATROPIUM/ALBUTEROL 0.5-2.5 MG/3 ML AMPUL NEB SCH ×5 (00:13→20:38)
[2018-11-30] MEDS: ACETAMINOPHEN 325 MG TABLET PO PRN ×3 (04:57→23:03)
[2018-11-30] MEDS: METHYLPREDNISOLONE INJ 125 MG/2 ML SDV IV SCH ×3 (05:00→23:01)
[2018-11-30] MEDS: LEVOTHYROXINE SODIUM 0.025 MG TABLET PO SCH (05:00)
[2018-11-30 06:41] LABS: HEMOGLOBIN 10.7 g/dL (12.0-15.5); MEAN CORPUSCULAR HEMOGLOBIN 30.9 pg (27.0-33.4); MEAN CORPUSCULAR HGB CONC 33.5 g/dL (32.0-36.0); MEAN CORPUSCULAR VOLUME 92 fl (80-97); PLATELET COUNT 150 10^3/uL (150-450); RED BLOOD COUNT 3.46 10^6/uL (3.72-5.28); RED CELL DISTRIBUTION WIDTH 15.2 % (11.5-14.0); WHITE BLOOD COUNT 10.3 10^3/uL (4.0-10.5)
[2018-11-30 06:54] LABS: BLOOD UREA NITROGEN 17 mg/dL (7-20); CALCIUM 8.4 mg/dL (8.4-10.2); CHLORIDE 97 mmol/L (98-107); GLUCOSE 133 mg/dL (75-110); POTASSIUM 4.2 mmol/L (3.6-5.0)
[2018-11-30 07:10] LABS: ANION GAP 3 (5-19); CARBON DIOXIDE 47 mmol/L (22-30)
[2018-11-30] MEDS: FONDAPARINUX SODIUM INJ 2.5 MG/0.5 ML DISP.SYRIN SUBCUT SCH (08:05)
[2018-11-30] MEDS: GUAIFENESIN 600 MG TABLET.SA PO SCH ×2 (09:00→23:00)
[2018-11-30] MEDS: DOCUSATE SODIUM 100 MG CAPSULE PO SCH (09:00)
[2018-11-30] MEDS: FAMOTIDINE 20 MG TABLET PO SCH ×2 (09:00→23:00)
[2018-11-30] MEDS: ROFLUMILAST 500 MCG TABLET PO SCH (09:00)
[2018-11-30] MEDS: SALMETEROL XINAFOATE DISKUS 50 MCG/1 DOSE 28 DOSE IH SCH ×2 (09:00→23:01)
[2018-11-30] MEDS: ASPIRIN 81 MG TABLET, ENT COATED PO SCH (09:00)
[2018-11-30] MEDS: CETIRIZINE 5 MG TABLET PO SCH (09:00)
[2018-11-30] MEDS: NICOTINE 21 MG/24 HR PATCH.TD24 TD SCH (09:00)
[2018-11-30] MEDS: TIOTROPIUM BROMIDE DPI 5 CAP/KIT (18 MCG/CAP) IH SCH (09:01)
[2018-11-30] MEDS ORDERED: PHENOL/SODIUM PHENOLATE 100 SPRAY/177 ML BOTTLE PO PRN (10:29)
--- NOTE | 2018-11-30 15:40 | PDOC PROGRESS REPORT ---
Subjective Progress Note for:: 11/30/18 Subjective:: AUDIE KIMBLE is a 58 year old female with a past medical history of alpha-1 antitrypsin deficiency, COPD, chronic respiratory failure who is home O2 and trilogy dependent, chronic diastolic CHF, pulmonary hypertension, anemia, thrombocytopenia, and tobacco dependence with continuous use. She was admitted 11/22/2017 for a COPD exacerbation. The patient was seen on morning rounds. She was seen resting in bed comfortably on her baseline oxygen requirement with BiPAP use overnight. She reports she is feeling much better; continues to have dyspnea and tachycardia with minimal exertion. She does report slight rhinorrhea with sore throat secondary to postnasal otherwise, denies fever, chills, chest pain, palpitations, orthopnea, abdominal pain, nausea vomiting diarrhea. She has no other questions or concerns. No concerns per nursing. Reason For Visit: COPD EXACERBATION Physical Exam Vital Signs: Temp Pulse Resp BP Pulse Ox 97.5 F 102 H 32 H 142/71 H 100 11/30/18 12:47 11/30/18 14:00 11/30/18 12:47 11/30/18 12:47 11/30/18 12:47 Pulse Oximeter Continuous Start: 11/22/18 13:41 Freq: RTQ4 Status: Active Protocol: Document 11/30/18 12:20 [facility] (Rec: 11/30/18 13:27 [facility] [id number]) Pulse Oximetry Assessment Oxygen Saturation (92-100) 99 Oxygen Flow Rate (L/min) 3.5 Oxygen Delivery Method Nasal Cannula Fraction of Inspired Oxygen (FIO2) 35 Equipment Usage Equipment in Use Continuous SpO2 Machine # N 1 Intake & Output 11/29/18 11/30/18 12/01/18 06:59 06:59 06:59 Intake Total 1687 1812 591 Balance 1687 1812 591 Weight 72.1 kg 72.9 kg General appearance: PRESENT: no acute distress, cooperative, well-developed, well-nourished - Overweight Head exam: PRESENT: atraumatic, normocephalic Eye exam: PRESENT: conjunctiva pink, EOMI, PERRLA. ABSENT: scleral icterus Ear exam: PRESENT: normal external ear exam Mouth exam: PRESENT: moist, tongue midline Throat exam: ABSENT: post pharyngeal erythema, tonsillar erythema, tonsillogmegaly Neck exam: ABSENT: carotid bruit, JVD, lymphadenopathy, thyromegaly Respiratory exam: PRESENT: clear to auscultation lashell, prolonged expiratory phas, symmetrical, unlabored. ABSENT: rales, rhonchi, wheezes Cardiovascular exam: PRESENT: RRR. ABSENT: diastolic murmur, rubs, systolic murmur Pulses: PRESENT: normal dorsalis pedis pul Vascular exam: PRESENT: normal capillary refill GI/Abdominal exam: PRESENT: normal bowel sounds, soft. ABSENT: distended, guarding, mass, organolmegaly, rebound, tenderness Rectal exam: PRESENT: deferred Extremities exam: PRESENT: full ROM. ABSENT: calf tenderness, clubbing, pedal edema Neurological exam: PRESENT: alert, awake, oriented to person, oriented to place, oriented to time, oriented to situation, CN II-XII grossly intact. ABSENT: motor sensory deficit Psychiatric exam: PRESENT: appropriate affect, normal mood. ABSENT: homicidal ideation, suicidal ideation Skin exam: PRESENT: dry, intact, warm. ABSENT: cyanosis, rash Results Laboratory Results: 11/30/18 06:08 11/30/18 06:08 11/30/18 11/30/18 06:08 06:08 WBC 10.3 RBC 3.46 L Hgb 10.7 L Hct 32.0 L MCV 92 MCH 30.9 MCHC 33.5 RDW 15.2 H Plt Count 150 Sodium 141.0 Potassium 4.2 Chloride 97 L Carbon Dioxide 47 H* Anion Gap 3 L BUN 17 Creatinine 0.37 L Est GFR ( Amer) > 60 Est GFR (Non-Af Amer) > 60 Glucose 133 H Calcium 8.4 Magnesium 2.3 11/22/18 11/22/18 10:25 10:25 Creatine Kinase 23 L CK-MB (CK-2) 0.80 Troponin I < 0.012 Impressions: Chest X-Ray 11/22/18 10:12 IMPRESSION: Obstructive lung disease with spotty areas of pulmonary parenchymal scarring. No acute findings. Assessment & Plan - Diagnosis (1) Acute respiratory failure with hypoxia and hypercapnia Is this a current diagnosis for this admission?: Yes Plan: Improved; acute phase nearly resolved. Chest x-ray revealed chronic changes related to COPD; no acute findings. VBG demonstrated respiratory acidosis with hypercapnia and hypoxia. Initial ABG shows respiratory acidosis with hypercapnia and hypoxia. Blood cultures negative The patient is admitted to [facility] on continuous cardiac telemetry and pulse oximetry. She is provided supplemental oxygen and BiPAP/AVAPS as needed to maintain oxygen saturations >88% Empirically placed on p.o. Levaquin for Pseudomonas coverage as patient has previous positive blood and sputum results. Continue scheduled (have begun weaning) and as needed nebulizer treatments. Continue IV Solu-Medrol; have begun weaning. Continue home dose Daliresp, Mucinex, Zyrtec, and Singulair. Consider pulmonology consultation. Incentive spirometer and flutter valve to bedside. Encourage ambulation. Patient confirms she is a DNR/DNI. Patient has a history of thrombocytopenia; placed on Arixtra for DVT prophylaxi s. (2) COPD exacerbation Is this a current diagnosis for this admission?: Yes Plan: Management as above. (3) Restless legs syndrome Is this a current diagnosis for this admission?: Yes Plan: The patient's home dose gabapentin and Requip are continued. (4) GERD (gastroesophageal reflux disease) Is this a current diagnosis for this admission?: Yes Plan: Pepcid twice daily (5) Ehulj-7-dcsliqzijmn deficiency Is this a current diagnosis for this admission?: Yes Plan: Contributory to COPD. (6) Tobacco dependency Is this a current diagnosis for this admission?: Yes Plan: Smoking cessation is strongly encouraged; nicotine replacement therapies are provided. - Time Time Spent with patient: 15-24 minutes Medications reviewed and adjusted accordingly: Yes Anticipated discharge: Home with Homehealth Within: within 48 hours
[2018-11-30] MEDS: LEVALBUTEROL HCL NEB 1.25 MG/3 ML AMPUL NEB PRN (16:30)
[2018-11-30] MEDS: MONTELUKAST SODIUM 10 MG TABLET PO SCH (17:32)
[2018-11-30] MEDS: GABAPENTIN 100 MG CAPSULE PO SCH (23:01)
[2018-11-30] MEDS: ROPINIROLE HCL 0.25 MG TABLET PO SCH (23:01)
[2018-12-01] MEDS: IPRATROPIUM/ALBUTEROL 0.5-2.5 MG/3 ML AMPUL NEB SCH ×2 (02:28→08:53)
[2018-12-01] MEDS: METHYLPREDNISOLONE INJ 125 MG/2 ML SDV IV SCH (05:44)
[2018-12-01] MEDS: LEVOTHYROXINE SODIUM 0.025 MG TABLET PO SCH (05:44)
[2018-12-01 08:29] LABS: HEMATOCRIT 34.9 % (36.0-47.0); HEMOGLOBIN 11.4 g/dL (12.0-15.5); MEAN CORPUSCULAR HEMOGLOBIN 30.8 pg (27.0-33.4); MEAN CORPUSCULAR HGB CONC 32.5 g/dL (32.0-36.0); MEAN CORPUSCULAR VOLUME 95 fl (80-97); PLATELET COUNT 158 10^3/uL (150-450); RED BLOOD COUNT 3.69 10^6/uL (3.72-5.28); RED CELL DISTRIBUTION WIDTH 15.4 % (11.5-14.0); WHITE BLOOD COUNT 12.5 10^3/uL (4.0-10.5)
[2018-12-01 08:48] LABS: BLOOD UREA NITROGEN 18 mg/dL (7-20); CALCIUM 8.7 mg/dL (8.4-10.2); CHLORIDE 93 mmol/L (98-107); GLUCOSE 138 mg/dL (75-110); POTASSIUM 4.3 mmol/L (3.6-5.0); SODIUM 142.1 mmol/L (137-145)
[2018-12-01 09:08] LABS: ANION GAP 7 (5-19)
[2018-12-01 09:09] LABS: CARBON DIOXIDE 42 mmol/L (22-30)
[2018-12-01] MEDS: ROFLUMILAST 500 MCG TABLET PO SCH (09:15)
[2018-12-01] MEDS: GUAIFENESIN 600 MG TABLET.SA PO SCH ×2 (09:16→23:04)
[2018-12-01] MEDS: CETIRIZINE 5 MG TABLET PO SCH (09:16)
[2018-12-01] MEDS: DOCUSATE SODIUM 100 MG CAPSULE PO SCH (09:17)
[2018-12-01] MEDS: ASPIRIN 81 MG TABLET, ENT COATED PO SCH (09:17)
[2018-12-01] MEDS: FAMOTIDINE 20 MG TABLET PO SCH ×2 (09:17→23:04)
[2018-12-01] MEDS: NICOTINE 21 MG/24 HR PATCH.TD24 TD SCH (09:18)
[2018-12-01] MEDS: SALMETEROL XINAFOATE DISKUS 50 MCG/1 DOSE 28 DOSE IH SCH ×2 (09:18→23:15)
[2018-12-01] MEDS: FONDAPARINUX SODIUM INJ 2.5 MG/0.5 ML DISP.SYRIN SUBCUT SCH (09:18)
[2018-12-01] MEDS: TIOTROPIUM BROMIDE DPI 5 CAP/KIT (18 MCG/CAP) IH SCH (09:19)
[2018-12-01] MEDS: METHYLPREDNISOLONE INJ 40 MG/1 ML SDV IV SCH ×2 (13:20→23:05)
[2018-12-01] MEDS ORDERED: METHYLPREDNISOLONE INJ 125 MG/2 ML SDV IV SCH (14:00)
[2018-12-01] MEDS: LEVALBUTEROL HCL NEB 1.25 MG/3 ML AMPUL NEB PRN (14:32)
[2018-12-01] MEDS ORDERED: IPRATROPIUM/ALBUTEROL 0.5-2.5 MG/3 ML AMPUL NEB SCH (16:00)
--- NOTE | 2018-12-01 17:09 | PDOC PROGRESS REPORT ---
Subjective Progress Note for:: 12/01/18 Subjective:: AUDIE KIMBLE is a 58 year old female with a past medical history of alpha-1 antitrypsin deficiency, COPD, chronic respiratory failure who is home O2 and trilogy dependent, chronic diastolic CHF, pulmonary hypertension, anemia, thrombocytopenia, and tobacco dependence with continuous use. She was admitted 11/22/2017 for a COPD exacerbation. The patient was seen on morning rounds. She was seen resting in bed comfortably on her baseline oxygen requirement with BiPAP use overnight and twice during the day yesterday (~1 hr each time). She reports she is feeling well; continues to have dyspnea and tachycardia with minimal exertion. She was noted to have a HR in the 120s while sitting up to the edge of the bed during our conversation. She does speak full sentences without pauses or obvious increased work of breathing. Per patient and nursing, she does continue to desat when ambulating short distances. She denies fever, chills, chest pain, palpitations, orthopnea, abdominal pain, nausea vomiting diarrhea. She has no other questions or concerns. No concerns per nursing. Reason For Visit: COPD EXACERBATION Physical Exam Vital Signs: Temp Pulse Resp BP Pulse Ox 98.7 F 101 H 20 115/61 96 12/01/18 12:00 12/01/18 14:32 12/01/18 14:32 12/01/18 12:00 12/01/18 14:32 Pulse Oximeter Continuous Start: 11/22/18 13:4 1 Freq: RTQ4 Status: Active Protocol: Document 12/01/18 12:25 [facility] (Rec: 12/01/18 14:23 [facility] [id number]) Pulse Oximetry Assessment Oxygen Saturation (92-100) 96 Oxygen Flow Rate (L/min) 3 Oxygen Delivery Method Nasal Cannula Equipment Usage Equipment in Use Continuous SpO2 Machine # 1 Intake & Output 11/30/18 12/01/18 12/02/18 06:59 06:59 06:59 Intake Total 181 1780 Balance 181 1780 Weight 72.9 kg 72.9 kg General appearance: PRESENT: no acute distress, cooperative, well-developed, well-nourished Head exam: PRESENT: atraumatic, normocephalic Eye exam: PRESENT: conjunctiva pink, EOMI, PERRLA. ABSENT: scleral icterus Ear exam: PRESENT: normal external ear exam Mouth exam: PRESENT: moist, tongue midline Teeth exam: PRESENT: poor dentation Neck exam: ABSENT: carotid bruit, JVD, lymphadenopathy, thyromegaly Respiratory exam: PRESENT: decreased breath sounds - Throughout; tight, prolon ged expiratory phas, rhonchi, symmetrical, tachypnea, wheezes - Slight end expiratory wheezing, other - Baseline oxygen requirement. ABSENT: rales Cardiovascular exam: PRESENT: +S1, +S2, tachycardia. ABSENT: diastolic murmur, rubs, systolic murmur Pulses: PRESENT: normal dorsalis pedis pul Vascular exam: PRESENT: normal capillary refill GI/Abdominal exam: PRESENT: normal bowel sounds, soft. ABSENT: distended, guarding, mass, organolmegaly, rebound, tenderness Rectal exam: PRESENT: deferred Extremities exam: PRESENT: full ROM. ABSENT: calf tenderness, clubbing, pedal edema Neurological exam: PRESENT: alert, awake, oriented to person, oriented to place, oriented to time, oriented to situation, CN II-XII grossly intact. ABSENT: motor sensory deficit Psychiatric exam: PRESENT: appropriate affect, normal mood. ABSENT: homicidal ideation, suicidal ideation Skin exam: PRESENT: dry, intact, warm. ABSENT: cyanosis, rash Results Laboratory Results: 12/01/18 08:02 12/01/18 08:02 12/01/18 12/01/18 08:02 08:02 WBC 12.5 H RBC 3.69 L Hgb 11.4 L Hct 34.9 L MCV 95 MCH 30.8 MCHC 32.5 RDW 15.4 H Plt Count 158 Sodium 142.1 Potassium 4.3 Chloride 93 L Carbon Dioxide 42 H* Anion Gap 7 BUN 18 Creatinine 0.40 L Est GFR ( Amer) > 60 Est GFR (Non-Af Amer) > 60 Glucose 138 H Calcium 8.7 11/22/18 11/22/18 10:25 10:25 Creatine Kinase 23 L CK-MB (CK-2) 0.80 Troponin I < 0.012 Impressions: Chest X-Ray 11/22/18 10:12 IMPRESSION: Obstructive lung disease with spotty areas of pulmonary parenchymal scarring. No acute findings. Assessment & Plan - Diagnosis (1) Acute respiratory failure with hypoxia and hypercapnia Is this a current diagnosis for this admission?: Yes Plan: Improved; acute phase nearly resolved. Remains tachycardic with desaturations while ambulating. Chest x-ray revealed chronic changes related to COPD; no acute findings. VBG demonstrated respiratory acidosis with hypercapnia and hypoxia. Initial ABG shows respiratory acidosis with hypercapnia and hypoxia. Blood cultures negative The patient is admitted to [facility] on continuous cardiac telemetry and pulse oximetry. She is provided supplemental oxygen and BiPAP/AVAPS as needed to maintain oxygen saturations >88% Empirically placed on p.o. Levaquin for Pseudomonas coverage as patient has previous positive blood and sputum results; has completed full course. Continue scheduled and as needed nebulizer treatments. Continue IV Solu-Medrol; will hold on weaning today as the patient has tight lung sounds w/ continued hypokia/tachycardia. Continue home dose Daliresp, Mucinex, Zyrtec, and Singulair. Consider pulmonology consultation. Incentive spirometer and flutter valve to bedside. Encourage ambulation. Patient confirms she is a DNR/DNI. Patient has a history of thrombocytopenia; placed on Arixtra for DVT prophylaxis. (2) COPD exacerbation Is this a current diagnosis for this admission?: Yes Plan: Management as above. (3) Restless legs syndrome Is this a current diagnosis for this admission?: Yes Plan: The patient's home dose gabapentin and Requip are continued. (4) GERD (gastroesophageal reflux disease) Is this a current diagnosis for this admission?: Yes Plan: Pepcid twice daily (5) Abatv-5-ngdnxqllsoz deficiency Is this a current diagnosis for this admission?: Yes Plan: Contributory to COPD. (6) Tobacco dependency Is this a current diagnosis for this admission?: Yes Plan: Smoking cessation is strongly encouraged; nicotine replacement therapies are provided. - Time Time Spent with patient: 15-24 minutes Medications reviewed and adjusted accordingly: Yes Anticipated discharge: Home Within: within 72 hours
[2018-12-01] MEDS: MONTELUKAST SODIUM 10 MG TABLET PO SCH (17:38)
[2018-12-01] MEDS: IPRATROPIUM BROMIDE 0.02% NEB 0.5 MG/2.5 ML AMPUL NEB SCH (20:33)
[2018-12-01] MEDS: LEVALBUTEROL HCL NEB 1.25 MG/3 ML AMPUL NEB SCH (20:33)
[2018-12-01] MEDS: GABAPENTIN 100 MG CAPSULE PO SCH (23:04)
[2018-12-01] MEDS: ROPINIROLE HCL 0.25 MG TABLET PO SCH (23:04)
[2018-12-02] MEDS: LEVALBUTEROL HCL NEB 1.25 MG/3 ML AMPUL NEB SCH ×4 (02:20→20:46)
[2018-12-02] MEDS: IPRATROPIUM BROMIDE 0.02% NEB 0.5 MG/2.5 ML AMPUL NEB SCH ×4 (02:21→20:46)
[2018-12-02] MEDS: METHYLPREDNISOLONE INJ 40 MG/1 ML SDV IV SCH ×3 (05:25→21:45)
[2018-12-02] MEDS: LEVOTHYROXINE SODIUM 0.025 MG TABLET PO SCH (05:25)
[2018-12-02 05:56] LABS: HEMATOCRIT 30.8 % (36.0-47.0); HEMOGLOBIN 10.3 g/dL (12.0-15.5); MEAN CORPUSCULAR HEMOGLOBIN 31.2 pg (27.0-33.4); MEAN CORPUSCULAR HGB CONC 33.4 g/dL (32.0-36.0); MEAN CORPUSCULAR VOLUME 94 fl (80-97); PLATELET COUNT 152 10^3/uL (150-450); RED BLOOD COUNT 3.29 10^6/uL (3.72-5.28); RED CELL DISTRIBUTION WIDTH 15.4 % (11.5-14.0); WHITE BLOOD COUNT 12.8 10^3/uL (4.0-10.5)
[2018-12-02 06:17] LABS: BLOOD UREA NITROGEN 19 mg/dL (7-20); CALCIUM 8.2 mg/dL (8.4-10.2); CHLORIDE 95 mmol/L (98-107); GLUCOSE 129 mg/dL (75-110); POTASSIUM 4.8 mmol/L (3.6-5.0); SODIUM 141.1 mmol/L (137-145)
[2018-12-02 06:25] LABS: ANION GAP 7 (5-19); CARBON DIOXIDE 39 mmol/L (22-30)
[2018-12-02 06:39] LABS: ARTERIAL BLOOD BASE EXCESS 13.9 mmol/L; ARTERIAL BLOOD H2CO3 2.01 mmol/L (1.05-1.35); ARTERIAL BLOOD O2 SATURATION 97.3 % (94-98); ARTERIAL BLOOD PCO2 66.9 mmHg (35-45); ARTERIAL BLOOD PH 7.41 (7.35-7.45); ARTERIAL BLOOD PO2 98.5 mmHg (80-100)
[2018-12-02 06:41] LABS: ARTERIAL BLOOD FIO2 35%
[2018-12-02] MEDS: FONDAPARINUX SODIUM INJ 2.5 MG/0.5 ML DISP.SYRIN SUBCUT SCH (08:21)
--- NOTE | 2018-12-02 08:57 | RADIOLOGY REPORT (SQ) ---
EXAM DESCRIPTION: CHEST SINGLE VIEW COMPLETED DATE/TIME: 12/02/2018 8:26 am REASON FOR STUDY: dyspnea, hypoxia COMPARISON: None. EXAM PARAMETERS: NUMBER OF VIEWS: One view. TECHNIQUE: Single frontal radiographic view of the chest acquired. RADIATION DOSE: NA LIMITATIONS: None. FINDINGS: LUNGS AND PLEURA: Hyperinflation lungs compatible with COPD. Hyperlucency of the upper lo bes again noted. Chronic bilateral interstitial changes seen. Left pleural thickening. MEDIASTINUM AND HILAR STRUCTURES: No masses. Contour normal. HEART AND VASCULAR STRUCTURES: The heart is borderline in size. The pulmonary vasculature is normal. BONES: No acute findings. HARDWARE: None in the chest. OTHER: Chest leads in place. IMPRESSION: COPD with chronic bilateral interstitial changes and left pleural thickening. TECHNICAL DOCUMENTATION: JOB ID: [id number] [employer]- All Rights Reserved Reading location - IP/workstation name: [email or web address]
[2018-12-02] MEDS: ASPIRIN 81 MG TABLET, ENT COATED PO SCH (11:24)
[2018-12-02] MEDS: GUAIFENESIN 600 MG TABLET.SA PO SCH ×2 (11:25→21:44)
[2018-12-02] MEDS: NICOTINE 21 MG/24 HR PATCH.TD24 TD SCH (11:25)
[2018-12-02] MEDS: DOCUSATE SODIUM 100 MG CAPSULE PO SCH (11:25)
[2018-12-02] MEDS: FAMOTIDINE 20 MG TABLET PO SCH ×2 (11:25→21:44)
[2018-12-02] MEDS: ROFLUMILAST 500 MCG TABLET PO SCH (11:25)
[2018-12-02] MEDS: CETIRIZINE 5 MG TABLET PO SCH (11:25)
[2018-12-02] MEDS: SALMETEROL XINAFOATE DISKUS 50 MCG/1 DOSE 28 DOSE IH SCH ×2 (11:26→21:45)
[2018-12-02] MEDS: TIOTROPIUM BROMIDE DPI 5 CAP/KIT (18 MCG/CAP) IH SCH (11:42)
--- NOTE | 2018-12-02 17:41 | PDOC PROGRESS REPORT ---
Subjective Progress Note for:: 12/02/18 Subjective:: AUDIE KIMBLE is a 58 year old female with a past medical history of alpha-1 antitrypsin deficiency, COPD, chronic respiratory failure who is home O2 and trilogy dependent, chronic diastolic CHF, pulmonary hypertension, anemia, thrombocytopenia, and tobacco dependence with continuous use. She was admitted 11/22/2017 for a COPD exacerbation. The patient was seen on afternoon rounds. She was seen resting in bed comfortably on her baseline oxygen requirement with BiPAP use overnight. She reports she is feeling well; continues to have dyspnea and tachycardia with minimal exertion, though reports that this is much improved today. Per nursing, HR 120s while ambulating but without noted increased work of breathing; at rest, HR <105 and saturations in high 90s. She speaks full sentences without pauses or obvious increased work of breathing. She denies fever, chills, chest pain, palpitations, orthopnea, abdominal pain, nausea vomiting diarrhea. She has no other questions or concerns. No concerns per nursing. Reason For Visit: COPD EXACERBATION Physical Exam Vital Signs: Temp Pulse Resp BP Pulse Ox 97.4 F 101 H 28 H 122/62 100 12/02/18 15:55 12/02/18 15:55 12/02/18 15:55 12/02/18 15:55 12/02/18 15:55 Pulse Oximeter Continuous Start: 11/22/18 13:41 Freq: RTQ4 Status: Active Protocol: Document 12/02/18 11:45 [facility] (Rec: 12/02/18 14:01 [facility] [id number]) Pulse Oximetry Assessment Oxygen Saturation (92-100) 97 Oxygen Flow Rate (L/min) 3.5 Oxygen Delivery Method Nasal Cannula Equipment Usage Equipment in Use Continuous SpO2 Machine # 1 Intake & Output 12/01/18 12/02/18 12/03/18 06:59 06:59 06:59 Intake Total 1780 1591 1439 Balance 1780 1591 1439 Weight 72.9 kg 72.8 kg General appearance: PRESENT: no acute distress, cooperative, well-developed, well-nourished - overweight Head exam: PRESENT: atraumatic, normocephalic Eye exam: PRESENT: conjunctiva pink, EOMI, PERRLA. ABSENT: scleral icterus Ear exam: PRESENT: normal external ear exam Mouth exam: PRESENT: moist, tongue midline Neck exam: ABSENT: carotid bruit, JVD, lymphadenopathy, thyromegaly Respiratory exam: PRESENT: prolonged expiratory phas, rhonchi - throughout, sy mmetrical, unlabored, wheezes - thoughout. ABSENT: rales Cardiovascular exam: PRESENT: RRR. ABSENT: diastolic murmur, rubs, systolic murmur Pulses: PRESENT: normal dorsalis pedis pul Vascular exam: PRESENT: normal capillary refill GI/Abdominal exam: PRESENT: normal bowel sounds, soft. ABSENT: distended, guarding, mass, organolmegaly, rebound, tenderness Rectal exam: PRESENT: deferred Extremities exam: PRESENT: full ROM. ABSENT: calf tenderness, clubbing, pedal edema Neurological exam: PRESENT: alert, awake, oriented to person, oriented to place, oriented to time, oriented to situation, CN II-XII grossly intact. ABSENT: motor sensory deficit Psychiatric exam: PRESENT: appropriate affect, normal mood. ABSENT: homicidal ideation, suicidal ideation Skin exam: PRESENT: dry, intact, warm. ABSENT: cyanosis, rash Results Laboratory Results: 12/02/18 05:13 12/02/18 05:13 12/02/18 12/02/18 12/02/18 05:13 05:13 06:20 WBC 12.8 H RBC 3.29 L Hgb 10.3 L Hct 30.8 L MCV 94 MCH 31.2 MCHC 33.4 RDW 15.4 H Plt Count 152 Carbonic Acid 2.01 H HCO3/H2CO3 Ratio 20:1 ABG pH 7.41 ABG pCO2 66.9 H ABG pO2 98.5 ABG HCO3 41.0 H ABG O2 Saturation 97.3 ABG Base Excess 13.9 FiO2 35% Sodium 141.1 Potassium 4.8 Chloride 95 L Carbon Dioxide 39 H Anion Gap 7 BUN 19 Creatinine 0.44 L Est GFR ( Amer) > 60 Est GFR (Non-Af Amer) > 60 Glucose 129 H Calcium 8.2 L 11/22/18 11/22/18 10:25 10:25 Creatine Kinase 23 L CK-MB (CK-2) 0.80 Troponin I < 0.012 Impressions: Chest X-Ray 12/02/18 06:00 IMPRESSION: COPD with chronic bilateral interstitial changes and left pleural thickening. Assessment & Plan - Diagnosis (1) Acute respiratory failure with hypoxia and hypercapnia Is this a current diagnosis for this admission?: Yes Plan: Improved; acute phase nearly resolved. Remains tachycardic while ambulating but maintains saturations. Chest x-ray revealed chronic changes related to COPD; no acute findings. VBG demonstrated respiratory acidosis with hypercapnia and hypoxia. Initial ABG shows respiratory acidosis with hypercapnia and hypoxia. Blood cultures negative The patient is admitted to [facility] on continuous cardiac telemetry and pulse oximetry. She is provided supplemental oxygen and BiPAP/AVAPS as needed to maintain oxygen saturations >88% Empirically placed on p.o. Levaquin for Pseudomonas coverage as patient has previous positive blood and sputum results; has completed full course. Continue scheduled and as needed nebulizer treatments. Continue IV Solu-Medrol; continue weaning. Continue home dose Daliresp, Mucinex, Zyrtec, and Singulair. Consider pulmonology consultation. Incentive spirometer and flutter valve to bedside. Encourage ambulation. Patient confirms she is a DNR/DNI. Patient has a history of thrombocytopenia; placed on Arixtra for DVT prophylaxis. (2) COPD exacerbation Is this a current diagnosis for this admission?: Yes Plan: Management as above. (3) Restless legs syndrome Is this a current diagnosis for this admission?: Yes Plan: The patient's home dose gabapentin and Requip are continued. (4) GERD (gastroesophageal reflux disease) Is this a current diagnosis for this admission?: Yes Plan: Pepcid twice daily (5) Fjblw-6-oqjjncjxrvj deficiency Is this a current diagnosis for this admission?: Yes Plan: Contributory to COPD. (6) Tobacco dependency Is this a current diagnosis for this admission?: Yes Plan: Smoking cessation is strongly encouraged; nicotine replacement therapies are provided. - Time Time Spent with patient: 15-24 minutes Medications reviewed and adjusted accordingly: Yes Anticipated discharge: Home with Homehealth Within: within 24 hours
[2018-12-02] MEDS: ACETAMINOPHEN 325 MG TABLET PO PRN (17:56)
[2018-12-02] MEDS: MONTELUKAST SODIUM 10 MG TABLET PO SCH (18:22)
[2018-12-02] MEDS: ROPINIROLE HCL 0.25 MG TABLET PO SCH (21:44)
[2018-12-02] MEDS: GABAPENTIN 100 MG CAPSULE PO SCH (21:44)
[2018-12-03] MEDS: LEVALBUTEROL HCL NEB 1.25 MG/3 ML AMPUL NEB SCH ×3 (02:21→13:49)
[2018-12-03] MEDS: IPRATROPIUM BROMIDE 0.02% NEB 0.5 MG/2.5 ML AMPUL NEB SCH ×3 (02:21→13:49)
[2018-12-03] MEDS: METHYLPREDNISOLONE INJ 40 MG/1 ML SDV IV SCH ×2 (05:09→13:42)
[2018-12-03] MEDS: LEVOTHYROXINE SODIUM 0.025 MG TABLET PO SCH (05:09)
[2018-12-03] MEDS: ROFLUMILAST 500 MCG TABLET PO SCH (09:06)
[2018-12-03] MEDS: ACETAMINOPHEN 325 MG TABLET PO PRN (09:06)
[2018-12-03] MEDS: GUAIFENESIN 600 MG TABLET.SA PO SCH (09:07)
[2018-12-03] MEDS: NICOTINE 21 MG/24 HR PATCH.TD24 TD SCH (09:07)
[2018-12-03] MEDS: DOCUSATE SODIUM 100 MG CAPSULE PO SCH (09:07)
[2018-12-03] MEDS: FAMOTIDINE 20 MG TABLET PO SCH (09:07)
[2018-12-03] MEDS: CETIRIZINE 5 MG TABLET PO SCH (09:07)
[2018-12-03] MEDS: FONDAPARINUX SODIUM INJ 2.5 MG/0.5 ML DISP.SYRIN SUBCUT SCH (09:07)
[2018-12-03] MEDS: ASPIRIN 81 MG TABLET, ENT COATED PO SCH (09:07)
[2018-12-03] MEDS: SALMETEROL XINAFOATE DISKUS 50 MCG/1 DOSE 28 DOSE IH SCH (09:10)
[2018-12-03] MEDS: TIOTROPIUM BROMIDE DPI 5 CAP/KIT (18 MCG/CAP) IH SCH (09:10)
[2018-12-03] MEDS ORDERED: METOPROLOL TARTRATE 25 MG TABLET PO ONE (11:17)
[2018-12-03 15:32] VITALS: BP 115/61
--- NOTE | 2018-12-07 14:09 | PDOC DISCHARGE SUMMARY ---
General - Admit/Disc Date/PCP Admission Date/Primary Care Provider: 11/22/18 12:58 SUDARSHAN HAYS MD Discharge Date: 12/03/18 - Discharge Diagnosis (1) Acute respiratory failure with hypoxia and hypercapnia Is this a current diagnosis for this admission?: Yes Summary: Improved; acute phase resolved. Now able to ambulate on her baseline oxygen requirement; self reports she is at her normal respiratory status. Chest x-ray revealed chronic changes related to COPD; no acute findings. VBG demonstrated respiratory acidosis with hypercapnia and hypoxia. Initial ABG shows respiratory acidosis with hypercapnia and hypoxia. Blood cultures negative The patient was admitted to [facility] on continuous cardiac telemetry and pulse oximetry. She was provided supplemental oxygen and BiPAP/AVAPS as needed to maintain oxygen saturations >88% Empirically placed on p.o. Levaquin for Pseudomonas coverage as patient has previous positive blood and sputum results; has completed full course. Continue scheduled and as needed nebulizer treatments; now weaned to her home frequency/regiment. She was initially provied IV Solu-medrol which has been weaned to p.o. prednisone. She has been provided prescription for prednisone taper at discharge. Continue home dose Daliresp, Mucinex, Zyrtec, and Singulair. At time of discharge, the patient was at her baseline oxygen requirement. Tachypnea and tachycardia have resolved. She is advised to STOP smoking. 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 (2) COPD exacerbation Is this a current diagnosis for this admission?: Yes Summary: Exacerbation as resolved. Pt w/ advanced COPD secondary to Alpha-1 antitrypsin deficiency and continued tobacco use. She confirms she is a DNR/DNI. May benefit from outpatient palliative care referral. (3) Restless legs syndrome Is this a current diagnosis for this admission?: Yes Summary: Stable. The patient's home dose gabapentin and Requip were continued. (4) GERD (gastroesophageal reflux disease) Is this a current diagnosis for this admission?: Yes Summary: Well controlled. Continue PPI. (5) Fpdyv-[id number]-[id number] deficiency Is this a current diagnosis for this admission?: Yes Summary: Contributory to COPD. Follow up with Pulmonology as scheduled. (6) Tobacco dependency Is this a current diagnosis for this admission?: Yes Summary: Smoking cessation is strongly encouraged; nicotine replacement therapies were provided. A prescription for NicoDerm patches was provided at discharge. - Additional Information Resuscitation Status: Do Not Intubate Discharge Diet: Cardiac Discharge Activity: Activity As Tolerated, Balance Activity w/Rest, Weigh Daily Prescriptions: Levalbuterol HCl [Xopenex Neb 1.25 mg/3 ml Ampul] 1.25 mg NEB RTQ6HP PRN #120 vial.neb PRN Reason: For Wheezing Prednisone [Deltasone 20 mg Tablet] 20 mg PO ASDIR PRN #20 tablet PRN Reason: Home Medications: Albuterol Sulfate [Proventil Hfa] 1 puff IH Q6HP PRN 11/22/18 Bisoprolol Fumarate [Zebeta 5 mg Tablet] 2.5 mg PO DAILY 11/22/18 Budesonide/Formoterol Fumarate [Symbicort HFA 160-4.5 mcg Inhaler 6 gm] 2 puff IH Q12 11/22/18 Gabapentin [Neurontin 100 mg Capsule] 100 mg PO QHS 11/22/18 Ibuprofen [Motrin 800 mg Tablet] 800 mg PO Q6HP PRN 11/22/18 Ipratropium/Albuterol Sulfate [Duoneb 3 ml Ampul] 3 ml NEB Q4HP PRN 11/22/18 Levocetirizine Dihydrochloride [Xyzal] 5 mg PO DAILY 11/22/18 Levothyroxine Sodium [Synthroid 0.025 mg Tablet] 0.025 mg PO Q6AM 11/22/18 Montelukast Sodium [Singulair 10 mg Tablet] 10 mg PO DAILY 11/22/18 Omeprazole 40 mg PO DAILY 11/22/18 Roflumilast [Daliresp 500 mcg Tablet] 500 mcg PO DAILY 11/22/18 Ropinirole HCl [Requip] 0.5 mg PO BID 11/22/18 Tiotropium Reserve [Spiriva Handihaler 5 Cap/Kit (18 Mcg/Cap)] 1 puff IH DAILY 11/22/18 Acetaminophen [Tylenol 325 mg Tablet] 650 mg PO Q4HP PRN tablet 12/03/18 Aspirin [Ecotrin 81 mg EC Tablet] 162 mg PO DAILY tabec 12/03/18 Cetirizine HCl [Zyrtec 5 mg Tablet] 5 mg PO DAILY tablet 12/03/18 Docusate Sodium [Colace 100 mg Capsule] 100 mg PO DAILY capsule 12/03/18 Gabapentin [Neurontin 100 mg Capsule] 100 mg PO QHS capsule 12/03/18 Guaifenesin [Mucinex Sr 600 mg Tablet.sa] 600 mg PO Q12 tablet.sa 12/03/18 Levalbuterol HCl [Xopenex Neb 1.25 mg/3 ml Ampul] 1.25 mg NEB RTQ6HP PRN #120 vial.neb 12/03/18 Levothyroxine Sodium [Synthroid 0.025 mg Tablet] 0.025 mg PO Q6AM tablet 12/03 Montelukast Sodium [Singulair 10 mg Tablet] 10 mg PO QPM tablet 12/03/18 Nicotine [Nicoderm 21 mg/24 Hr Transderm Patch] 1 each TD DAILY patch.td24 12/03/18 Prednisone [Deltasone 20 mg Tablet] 20 mg PO ASDIR PRN #20 tablet 12/03/18 Roflumilast [Daliresp 500 Mcg Tablet] 500 mcg PO DAILY tablet 12/03/18 Ropinirole HCl [Requip 0.25 mg Tablet] 0.5 mg PO QHS tablet 12/03/18 History of Present Illness History of Present Illness: AUDIE KIMBLE is a 58 year old female with a past medical history of alpha-1 antitrypsin deficiency, COPD, chronic respiratory failure who is home O2 and trilogy dependent, chronic diastolic CHF, pulmonary hypertension, anemia, thrombocytopenia, and tobacco dependence with continuous use who presented to the emergency department today with a complaint of 3 days of progressively worsening dyspnea and fatigue. She reports increased work of breathing, fatigue, rhinorrhea and a nonproductive cough. She denied fever, chills, malaise, and sick contacts. Evaluation in the emergency department revealed tachycardia (heart rate 130), tachypnea (RR 42), and hypoxia on her baseline oxygen requirement. She was found to have leukocytosis (WBCs 15.4), elevated bicarb (49) on chemistry, normal lactic acid and troponin, and otherwise unremarkable chemistry. VBG demonstrated respiratory acidosis with a CO2 of 101.7; ABG is pending. Chest x- ray demonstrated chronic COPD changes with no acute findings. EKG demonstrated sinus tachycardia. She was provided IV Solu-Medrol, DuoNeb treatments, placed on BiPAP, and re ferred to the hospitalist service for admission and management of acute on chronic respiratory failure secondary to a COPD exacerbation. Physical Exam Vital Signs: Temp Pulse Resp BP Pulse Ox 97.9 F 83 18 115/61 97 12/03/18 15:30 12/03/18 15:30 12/03/18 15:30 12/03/18 15:30 12/03/18 15:30 Pulse Oximeter Continuous Start: 11/22/18 13:41 Freq: RTQ4 Status: Discharge Protocol: Document 12/03/18 16:25 [facility] (Rec: 12/03/18 17:55 [facility] [id number]) Pulse Oximetry Assessment Equipment Usage Equipment Discontinued Continuous SpO2 Machine # 1 General appearance: PRESENT: no acute distress, cooperative, well-developed, well-nourished - overweight Head exam: PRESENT: atraumatic, normocephalic Eye exam: PRESENT: conjunctiva pink, EOMI, PERRLA. ABSENT: scleral icterus Ear exam: PRESENT: normal external ear exam Mouth exam: PRESENT: moist, tongue midline Neck exam: ABSENT: carotid bruit, JVD, lymphadenopathy, thyromegaly Respiratory exam: PRESENT: prolonged expiratory phas, rhonchi, symmetrical, unlabored, other - baseling oxygen requirement. ABSENT: rales, wheezes Cardiovascular exam: PRESENT: RRR, +S1, +S2. ABSENT: diastolic murmur, rubs, systolic murmur Pulses: PRESENT: normal dorsalis pedis pul Vascular exam: PRESENT: normal capillary refill GI/Abdominal exam: PRESENT: normal bowel sounds, soft. ABSENT: distended, guarding, mass, organolmegaly, rebound, tenderness Rectal exam: PRESENT: deferred Extremities exam: PRESENT: full ROM. ABSENT: calf tenderness, clubbing, pedal edema Neurological exam: PRESENT: alert, awake, oriented to person, oriented to place, oriented to time, oriented to situation, CN II-XII grossly intact. ABSENT: motor sensory deficit Psychiatric exam: PRESENT: appropriate affect, normal mood. ABSENT: homicidal ideation, suicidal ideation Skin exam: PRESENT: dry, intact, warm. ABSENT: cyanosis, rash Results Laboratory Results: 12/02/18 05:13 12/02/18 05:13 11/22/18 11/22/18 10:25 10:25 Creatine Kinase 23 L CK-MB (CK-2) 0.80 Troponin I < 0.012 Impressions: Chest X-Ray 12/02/18 06:00 IMPRESSION: COPD with chronic bilateral interstitial changes and left pleural thickening. Qualifiers - * PATIENT BEING DISCHARGED WITH ANY OF THE FOLLOWING DIAGNOSIS: No Plan Discharge Plan: Discharge to home with home health nursing and physical therapy. Follow up with primary care provider within 1 week. 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 STOP smoking. Return to the emergency department as needed for concerning symptoms.
== END 2018-12-03 16:25 | disposition home health service (06) | DRG 189 ==
LOC: ER 10:04 → EH 12:58 → OBSVTOIN 12:58 → 3W 14:46 → UNDODISIN 12-02 13:24
PROVIDERS: ADMIT Internal Medicine; ATTEND Internal Medicine
PROC: 5A09557 Assistance with Respiratory Ventilation, Greater than 96 Consecutive Hours, Continuous Positive Airway Pressure (ICD-10-PCS; principal; 2018-11-22)
DX: J96.22 Acute and chronic respiratory failure with hypercapnia (principal); J44.1 Chronic obstructive pulmonary disease with (acute) exacerbation; I50.32 Chronic diastolic (congestive) heart failure; J96.21 Acute and chronic respiratory failure with hypoxia; E88.01 Alpha-1-antitrypsin deficiency; G25.81 Restless legs syndrome; E03.9 Hypothyroidism, unspecified; F17.210 Nicotine dependence, cigarettes, uncomplicated; K21.9 Gastro-esophageal reflux disease without esophagitis; I11.0 Hypertensive heart disease with heart failure; D69.6 Thrombocytopenia, unspecified; I27.20 Pulmonary hypertension, unspecified; D64.9 Anemia, unspecified; Z66 Do not resuscitate; G43.909 Migraine, unspecified, not intractable, without status migrainosus; M19.90 Unspecified osteoarthritis, unspecified site; Z90.49 Acquired absence of other specified parts of digestive tract; Z83.438 Family history of other disorder of lipoprotein metabolism and other lipidemia; Z82.49 Family history of ischemic heart disease and other diseases of the circulatory system; Z88.2 Allergy status to sulfonamides; Z88.8 Allergy status to other drugs, medicaments and biological substances; Z99.81 Dependence on supplemental oxygen; Z79.82 Long term (current) use of aspirin; Z79.51 Long term (current) use of inhaled steroids; Z79.52 Long term (current) use of systemic steroids; Z79.899 Other long term (current) drug therapy
CPT/HCPCS: 36415; 36600; 71045; 80048; 80053; 81001; 82550; 82553; 82803; 82962; 83605; 83735; 84100; 84484; 85025; 85027; 85379; 85610; 87040; 87086; 93005; 93010; 94640; 94660; 94667; 94668; 94762; 96361; 96365; 96366; 99285; J1652; J2920; J2930; J3475; J3490; J7030; J7040; J7620

== ENCOUNTER 2019-01-06 11:55 | Inpatient (IN) | payer MEDICARE ==
[2019-01-06] MEDS ORDERED: IPRATROPIUM/ALBUTEROL 0.5-2.5 MG/3 ML AMPUL NEB ONE (12:24)
[2019-01-06 12:42] LABS: HEMATOCRIT 34.5 % (36.0-47.0); HEMOGLOBIN 11.5 g/dL (12.0-15.5); MEAN CORPUSCULAR HEMOGLOBIN 30.7 pg (27.0-33.4); MEAN CORPUSCULAR HGB CONC 33.4 g/dL (32.0-36.0); MEAN CORPUSCULAR VOLUME 92 fl (80-97); PLATELET COUNT 201 10^3/uL (150-450); RED BLOOD COUNT 3.74 10^6/uL (3.72-5.28); RED CELL DISTRIBUTION WIDTH 15.4 % (11.5-14.0); WHITE BLOOD COUNT 23.9 10^3/uL (4.0-10.5)
--- NOTE | 2019-01-06 12:46 | RADIOLOGY REPORT (SQ) ---
EXAM DESCRIPTION: CHEST SINGLE VIEW COMPLETED DATE/TIME: 01/06/2019 12:34 pm REASON FOR STUDY: dyspnea COMPARISON: 12/02/2018 NUMBER OF VIEWS: One view. TECHNIQUE: Single frontal radiographic image of the chest acquired. LIMITATIONS: None. FINDINGS: LUNGS AND PLEURA: Increasing interstitial opacities in both lower lungs. No large effusio ns. There is a background COPD. MEDIASTINUM AND HEART: Stable heart size and mediastinal structures. BONY STRUCTURES: No acute findings. HARDWARE: None. OTHER: No other significant finding. IMPRESSION: Asymmetric edema or pneumonia. Clinical correlation is needed. There is a background o f COPD. TECHNICAL DOCUMENTATION: JOB ID: [id number] Reading location - IP/workstation name: [email or web address]
[2019-01-06 12:51] LABS: ALANINE AMINOTRANSFERASE 16 U/L (9-52); ALBUMIN 3.7 g/dL (3.5-5.0); ALKALINE PHOSPHATASE 118 U/L (38-126); ANION GAP 11 (5-19); ASPARTATE AMINO TRANSFERASE 13 U/L (14-36); BILIRUBIN,DIRECT 0.3 mg/dL (0.0-0.4); BILIRUBIN,TOTAL 0.5 mg/dL (0.2-1.3); BLOOD UREA NITROGEN 31 mg/dL (7-20); CALCIUM 9.6 mg/dL (8.4-10.2); CARBON DIOXIDE 38 mmol/L (22-30); CHLORIDE 91 mmol/L (98-107); GLUCOSE 174 mg/dL (75-110); POTASSIUM 4.4 mmol/L (3.6-5.0); SODIUM 139.7 mmol/L (137-145); TOTAL PROTEIN 6.3 g/dL (6.3-8.2)
[2019-01-06 12:58] LABS: CREATINE KINASE < 20 U/L (30-135)
[2019-01-06 13:00] LABS: ARTERIAL BLOOD BASE EXCESS 10.2 mmol/L; ARTERIAL BLOOD H2CO3 1.94 mmol/L (1.05-1.35); ARTERIAL BLOOD HCO3 37.6 mmol/L (20-24); ARTERIAL BLOOD O2 SATURATION 98.8 % (94-98); ARTERIAL BLOOD PCO2 64.4 mmHg (35-45); ARTERIAL BLOOD PH 7.38 (7.35-7.45); ARTERIAL BLOOD PO2 150.1 mmHg (80-100); ARTERIAL BLOOD TOTAL CO2 39.6 mmol/L (21-25)
[2019-01-06 13:03] LABS: ARTERIAL BLOOD FIO2 60%
[2019-01-06 13:10] LABS: ABSOLUTE LYMPHOCYTES# (MANUAL) 0.2 10^3/uL (0.5-4.7); ABSOLUTE MONOCYTES # (MANUAL) 0.2 10^3/uL (0.1-1.4); ABSOLUTE NEUTROPHILS# (MANUAL) 23.2 10^3/uL (1.7-8.2); BASOPHILS % (MANUAL) 1 % (0-2); EOSINOPHILS % (MANUAL) 0 % (0-6); LYMPHOCYTES % (MANUAL) 1 % (13-45); MONOCYTES % (MANUAL) 1 % (3-13); SEGMENTED NEUTROPHILS % (MAN) 97 % (42-78); TOTAL CELLS COUNTED 100
[2019-01-06 13:11] LABS: ANISOCYTOSIS SLIGHT; PLATELET COMMENT ADEQUATE; POLYCHROMASIA SLIGHT
[2019-01-06 13:12] LABS: CREATINE KINASE MB 0.65 ng/mL (<4.55)
[2019-01-06 13:14] LABS: TROPONIN I 0.06 ng/mL
[2019-01-06] MEDS ORDERED: ASPIRIN 81 MG TABLET, CHEWABLE PO ONE (13:47)
[2019-01-06] MEDS ORDERED: FAMOTIDINE INJ/PF 20 MG/2 ML SDV IV ONE (13:48)
[2019-01-06] MEDS ORDERED: MORPHINE SULFATE 10 MG/ML INJ IV ONE (13:48)
[2019-01-06] MEDS ORDERED: ONDANSETRON HCL INJ/PF 4 MG/2 ML SDV IV ONE (13:48)
[2019-01-06] MEDS ORDERED: VANCOMYCIN HCL INJ 1000 MG VIAL IV ONE (13:56)
[2019-01-06] MEDS ORDERED: CEFEPIME 2 GM/D5W RTU 2 GM/50 ML RTUPB IV ONE (13:56)
[2019-01-06] MEDS ORDERED: LEVOFLOXACIN 750 MG/D5W RTU 750 MG/150 ML RTUPB IV ONE (13:57)
--- NOTE | 2019-01-06 14:27 | ER Document Report ---
ED General - General Chief Complaint: Respiratory Distress Stated Complaint: CHEST PAIN Time Seen by Provider: 01/06/19 12:15 Primary Care Provider: SUDARSHAN HAYS MD [Primary Care Provider] - Follow up as needed TRAVEL OUTSIDE OF THE [place] IN LAST 30 DAYS: No - HPI Notes: Patient presents emergency department for evaluation of difficulty breathing. She states her symptoms been present for the last 2-3 days. She has been coughing. She complains of orthopnea as well. She has significant dyspnea with exertion. She states she is normally on oxygen at home but she has had increase her oxygen requirements. Any sort of exertion causes a rapid desaturation. She states she has a heartburn type sensation in the right side of her chest that has been present for the last 24 hours as well. It does not seem to be changed by anything. She has had heartburn in the past. Again this heartburn is not positional, does not radiate, nonexertional. - Related Data Allergies/Adverse Reactions: doxepin [Doxepin] Allergy (Verified 09/30/18 16:24) Shortness of Breath, Swelling etodolac [Etodolac] Allergy (Verified 09/30/18 16:24) loratadine [Loratadine] Allergy (Verified 09/30/18 16:24) Shortness of Breath, Swelling meloxicam [Meloxicam] Allergy (Verified 09/30/18 16:24) Sulfa (Sulfonamide Antibiotics) Allergy (Verified 09/30/18 16:24) Shortness of Breath, Swelling Past Medical History - General Information source: Patient - Social History Smoking Status: Former Smoker - Patient states she quit smoking 1 month ago Frequency of alcohol use: None Drug Abuse: None Family History: Hyperlipidemia, Hypertension Patient has suicidal ideation: No Patient has homicidal ideation: No - Past Medical History Cardiac Medical History: Reports: Hx Congestive Heart Failure - Diastolic Denies: Hx Atrial Fibrillation, Hx DVT, Hx Heart Attack, Hx Hypercholest erolemia, Hx Hypertension, Hx Pulmonary Embolism Pulmonary Medical History: Reports: Hx Asthma, Hx Bronchitis, Hx COPD - home O2 & BIPAP-dependent, Hx Pneumonia, Hx Intubation - Now DNR/DNI, Hx Respiratory Failure - Chronic Neurological Medical History: Reports: Hx Migraine. Denies: Hx Seizures Endocrine Medical History: Denies: Hx Diabetes Mellitus Type 1, Hx Diabetes Mellitus Type 2, Hx Hyperthyroidism, Hx Hypothyroidism Renal/ Medical History: Denies: Hx End Stage Renal Disease, Hx Peritoneal Dialysis GI Medical History: Reports: Hx Gastroesophageal Reflux Disease. Denies: Hx Cirrhosis, Hx Crohn's Disease, Hx Hepatitis, Hx Ulcerative Colitis Musculoskeletal Medical History: Reports Hx Arthritis, Denies Hx Gout, Reports Hx Muscle Weakness Skin Medical History: Denies Hx Eczema, Denies Hx Psoriasis Psychiatric Medical History: Denies: Hx Bipolar Disorder, Hx Depression Traumatic Medical History: Reports: Hx Pneumothorax - x4 R lung, 2010 when the patient had a right lung bx required a chest tube. Denies: Hx Gunshot Wound Infectious Medical History: Denies: Hx Hepatitis Past Surgical History: Reports: Hx Gynecologic Surgery, Hx Hysterectomy, Hx Tonsillectomy, Hx Tubal Ligation, Other - Lung biopsy - Immunizations Hx Diphtheria, Pertussis, Tetanus Vaccination: No Hx Pneumococcal Vaccination: 07/19/18 Review of Systems - Review of Systems Constitutional: Malaise, Weakness EENT: No symptoms reported Cardiovascular: See HPI Respiratory: See HPI Gastrointestinal: No symptoms reported Genitourinary: No symptoms reported Musculoskeletal: No symptoms reported Skin: No symptoms reported Neurological/Psychological: No symptoms reported Physical Exam - Vital signs Vitals: Temp Pulse Resp BP Pulse Ox 98.2 F 140 H 40 H 144/60 H 85 L 01/06/19 12:00 01/06/19 12:00 01/06/19 12:00 01/06/19 12:00 01/06/19 12:00 - Notes Notes: Vital signs reviewed, please refer to chart. Patient is in a mild/moderate distress upon entrance to the room. She is already on BiPAP. Patient is normocephalic, atraumatic. Pupils equal round, reactive to light. Neck is supple without meningismus. Heart is regular rate and rhythm. Lungs reveal diminished breath sounds throughout, scant expiratory wheeze. Abdomen is soft, nontender, normoactive bowel sounds throughout. Extremities without cyanosis, clubbing, edema. Posterior calf tenderness. Peripheral pulses are equal. Skin is warm and dry. Patient is awake, alert, neurological exam is nonfocal. Course - Re-evaluation Re-evalutation: 01/06/19 14:33 Patient presents to the emergency department for evaluation. She came in comp laining of shortness of breath and was placed on normal BiPAP. She does have severe pulmonary hypertension, oxygen dependence at home. Her story is consistent with a COPD exacerbation and pneumonia versus CHF as well. Laboratory investigations reveal a markedly elevated white blood cell count, as well as a markedly elevated proBNP. She states she has some heartburn, but she has had heartburn in the past. It is not been exertional. I asked if it was changed with food, but she states she really has not had much of an appetite. Her blood pressure at baseline is the 90 systolic per the patient. I do not feel comfortable administering nitrates to this patient. I did review her past medical history. She had an echocardiogram but this was back in 2016. It revealed only moderate diastolic dysfunction, no comments made on systolic LV dysfunction. She remained normotensive between 90 and 105 systolic without any sort of intervention. She was hospitalized at the beginning of November, given her elevated white blood cell count as well as likely pneumonia on x-ray, she was covered for hospital-acquired pneumonia with cefepime, Levaquin, vancomycin. She had initially denied any sort of pain at all in her chest, she later admitted to a heartburn sensation and points to the right side of her chest. She would not be able to tolerate nitrates. She was given aspirin, morphine, Pepcid. Will await response. 01/06/19 14:53 01/06/19 14:54 Patient feeling somewhat improved. She remained stable. Current blood pressure is 98/65 with an SPO2 of 98% and a heart rate of 104. Patient is comfortable and feeling improved. Being covered for hospital-acquired pneumonia. I do not feel comfortable diuresing this patient with her borderline blood pressures. I spoke with Dr. Lesley Cruz, then Dr. Aquino, and the patient will be admitted for further care. - Vital Signs Vital signs: Temp Pulse Resp BP Pulse Ox 98.2 F 140 H 35 H 98/65 L 94 01/06/19 12:00 01/06/19 12:00 01/06/19 12:25 01/06/19 12:23 01/06/19 12:25 - Laboratory Result Diagrams: 01/06/19 12:14 01/06/19 12:14 Laboratory results interpreted by me: 01/06/19 01/06/19 01/06/19 12:14 12:14 12:14 WBC 23.9 H Hgb 11.5 L Hct 34.5 L RDW 15.4 H Seg Neuts % (Manual) 97 H Lymphocytes % (Manual) 1 L Monocytes % (Manual) 1 L Abs Neuts (Manual) 23.2 H Abs Lymphs (Manual) 0.2 L Carbonic Acid ABG pCO2 ABG pO2 ABG HCO3 ABG Total CO2 ABG O2 Saturation Chloride 91 L Carbon Dioxide 38 H BUN 31 H Glucose 174 H AST 13 L Creatine Kinase < 20 L NT-Pro-B Natriuret Pep 7070 H 01/06/19 12:45 WBC Hgb Hct RDW Seg Neuts % (Manual) Lymphocytes % (Manual) Monocytes % (Manual) Abs Neuts (Manual) Abs Lymphs (Manual) Carbonic Acid 1.94 H ABG pCO2 64.4 H ABG pO2 150.1 H ABG HCO3 37.6 H ABG Total CO2 39.6 H ABG O2 Saturation 98.8 H Chloride Carbon Dioxide BUN Glucose AST Creatine Kinase NT-Pro-B Natriuret Pep - Diagnostic Test Radiology reviewed: Reports reviewed - Pneumonia versus atypical edema - EKG Interpretation by Me Additional EKG results interpreted by me: 01/06/19 14:24 Sinus tachycardia with a rate of 122 bpm. Normal axis, no acute ST changes concerning for ischemia or infarction. Discharge - Discharge Clinical Impression: Acute respiratory failure with hypoxia and hypercarbia, COPD exacerbation, Chronic diastolic CHF (congestive heart failure), NYHA class 1 Pneumonia Qualifiers: Pneumonia type: due to unspecified organism Laterality: bilateral Condition: Stable Disposition: ADMITTED INPATIENT Admitting Provider: Hospitalist - Dr. Aquino Unit Admitted: IMCU Referrals: SUDARSHAN HAYS MD [Primary Care Provider] - Follow up as needed
--- NOTE | 2019-01-06 16:17 | PDOC H&P ---
History of Present Illness Admission Date/PCP: 01/06/19 15:17 SUDARSHAN HAYS MD History of Present Illness: AUDIE KIMBLE is a 58 year old female with a history of oxygen dependent COPD who presents with a chief complaint of worsening dyspnea with exertion over the past couple of weeks. She has had no fever no productive cough. She is also complained of orthopnea. She went to her doctor's office yesterday and was put on an antibiotic. Her symptoms of actually gotten worse and so she came here. She was hypoxic on her usual 5 L per nasal cannula and was started on BiPAP. H er breathing got more comfortable on BiPAP. She had a leukocytosis but she is on prednisone chronically. Chest x-ray shows some bilateral edema. Interestingly, BNP was elevated at greater than 7000, the first time that I can find in our medical record that she has had an elevated BNP. Last echoc ardiogram here was over 2 years ago, and at that time she was noted to have grade 2 diastolic dysfunction along with a right ventricular systolic pressure greater than 60. She already had antibiotics started in the emergency department. Past Medical History Cardiac Medical History: Reports: Congestive Heart Failure - Diastolic Denies: Atrial Fibrillation, DVT, Myocardial Infarction, Hyperlipidema, Hypertension, Pulmonary Embolism Pulmonary Medical History: Reports: Asthma, Bronchitis, Chronic Obstructive Pulmonary Disease (COPD) - home O2 & BIPAP-dependent, Intubation - Now DNR/DNI, Pneumonia, Respiratory Failure - Chronic Neurological Medical History: Reports: Migraine Denies: Seizures Endocrine Medical History: Denies: Diabetes Mellitus Type 1, Diabetes Mellitus Type 2, Hyperthyroidism, Hypothyroidism Renal/ Medical History: Denies: End Stage Renal Disease GI Medical History: Reports: Gastroesophageal Reflux Disease Denies: Cirrhosis, Crohn's Disease, Hepatitis, Ulcerative Colitis Musculoskeltal Medical History: Reports: Arthritis Denies: Gout Skin Medical History: Denies: Eczema, Psoriasis Psychiatric Medical History: Denies: Bipolar Disorder, Depression Traumatic Medical History: Reports: Pneumothorax - x4 R lung, 2010 when the patient had a right lung bx required a chest tube Denies: Gunshot Wound Hematology: Reports: Anemia Denies: Hemophilia, Bleeding Tendencies Past Surgical History Past Surgical History: Reports: Hysterectomy, Tonsillectomy, Tubal Ligation, Other - Lung biopsy Social History Smoking Status: Former Smoker - Patient states she quit smoking 1 month ago Frequency of Alcohol Use: None Hx Recreational Drug Use: No Drugs: None Hx Prescription Drug Abuse: No Family History Family History: Hyperlipidemia, Hypertension Parental Family History Reviewed: Yes Children Family History Reviewed: Yes Sibling(s) Family History Reviewed.: Yes Medication/Allergy Allergies/Adverse Reactions: doxepin [Doxepin] Allergy (Verified 09/30/18 16:24) Shortness of Breath, Swelling etodolac [Etodolac] Allergy (Verified 09/30/18 16:24) loratadine [Loratadine] Allergy (Verified 09/30/18 16:24) Shortness of Breath, Swelling meloxicam [Meloxicam] Allergy (Verified 09/30/18 16:24) Sulfa (Sulfonamide Antibiotics) Allergy (Verified 09/30/18 16:24) Shortness of Breath, Swelling Review of Systems All systems: reviewed and no additional remarkable complaints except as stated - All systems reviewed and were negative except as noted in the HPI Physical Exam Vital Signs: Temp Pulse Resp BP Pulse Ox 98.2 F 140 H 23 H 100/64 98 01/06/19 12:00 01/06/19 12:00 01/06/19 15:01 01/06/19 15:01 01/06/19 15:01 Intake & Output 01/05/19 01/06/19 01/07/19 06:59 06:59 06:59 Intake Total 50 Balance 50 Weight 65 kg General appearance: PRESENT: no acute distress, cooperative, disheveled Head exam: PRESENT: atraumatic, normocephalic Eye exam: PRESENT: EOMI, PERRLA. ABSENT: conjunctival injection, nystagmus, scleral icterus Ear exam: PRESENT: normal external ear exam Mouth exam: PRESENT: neck supple Neck exam: PRESENT: full ROM, JVD - She appeared to have some evidence of JVD on the right. ABSENT: carotid bruit, lymphadenopathy, meningismus, tenderness, thyromegaly Respiratory exam: PRESENT: crackles - Bibasilar, symmetrical, unlabored. ABSENT: accessory muscle use, prolonged expiratory phas, rhonchi, tachypnea, wheezes Cardiovascular exam: PRESENT: RRR, +S1, +S2, systolic murmur Pulses: PRESENT: normal carotid pulses Vascular exam: PRESENT: normal capillary refill GI/Abdominal exam: PRESENT: normal bowel sounds, soft. ABSENT: distended, guarding, rebound, tenderness Extremities exam: PRESENT: pedal edema - Trace, +1 edema - Bilateral ankles. ABSENT: clubbing Musculoskeletal exam: PRESENT: normal inspection. ABSENT: deformity Neurological exam: PRESENT: alert, awake, oriented to person, oriented to place, oriented to time, oriented to situation, CN II-XII grossly intact. ABSENT: motor sensory deficit Psychiatric exam: PRESENT: appropriate affect, normal mood Skin exam: PRESENT: dry, warm Results Laboratory Results: 01/06/19 12:14 01/06/19 12:14 01/06/19 01/06/19 01/06/19 12:14 12:14 12:45 WBC 23.9 H RBC 3.74 Hgb 11.5 L Hct 34.5 L MCV 92 MCH 30.7 MCHC 33.4 RDW 15.4 H Plt Count 201 Seg Neutrophils % Not Reportable Lymphocytes % Not Reportable Monocytes % Not Reportable Eosinophils % Not Reportable Basophils % Not Reportable Absolute Neutrophils Not Reportable Absolute Lymphocytes Not Reportable Absolute Monocytes Not Reportable Absolute Eosinophils Not Reportable Absolute Basophils Not Reportable Carbonic Acid 1.94 H HCO3/H2CO3 Ratio 19:1 ABG pH 7.38 ABG pCO2 64.4 H ABG pO2 150.1 H ABG HCO3 37.6 H ABG O2 Saturation 98.8 H ABG Base Excess 10.2 FiO2 60% Sodium 139.7 Potassium 4.4 Chloride 91 L Carbon Dioxide 38 H Anion Gap 11 BUN 31 H Creatinine 0.84 Est GFR ( Amer) > 60 Est GFR (Non-Af Amer) > 60 Glucose 174 H Calcium 9.6 Total Bilirubin 0.5 AST 13 L ALT 16 Alkaline Phosphatase 118 Total Protein 6.3 Albumin 3.7 01/06/19 01/06/19 01/06/19 12:14 12:14 14:40 Creatine Kinase < 20 L CK-MB (CK-2) 0.65 Troponin I 0.060 0.055 NT-Pro-B Natriuret Pep 7070 H Impressions: Chest X-Ray 01/06/19 12:25 IMPRESSION: Asymmetric edema or pneumonia. Clinical correlation is needed. T here is a background of COPD. Assessment and Plan - Diagnosis (1) Acute respiratory failure with hypoxia and hypercapnia Is this a current diagnosis for this admission?: Yes Plan: She is doing fine on BiPAP. We will try to treat the underlying cause and get her back on the nasal cannula. (2) Acute diastolic heart failure Is this a current diagnosis for this admission?: Yes Plan: As noted above, she has a history of elevated right ventricular systolic pressures consistent with pulmonary hypertension, as well as a history of grade 2 diastolic dysfunction. That was 2 years ago so will repeat an echocardiogram, I am going to give her a dose of Lasix to see how she responds. (3) Community acquired pneumonia Qualifiers: Laterality: right Lung location: lower lobe of lung Qualified Code(s): J18.1 - Lobar pneumonia, unspecified organism Is this a current diagnosis for this admission?: Yes Plan: Treatment was started for this, and because her heart failure scoring is intermediate, we will give her some Levaquin in case it turns out that diastolic heart failure is not the cause for her current symptoms, but at this time without further information, I think it more likely this is from diastolic heart failure. Blood cultures have been drawn and are pending. - Time Time Spent with patient: 35 or more minutes - Total of 55 minutes was spent in the history and physical, as well as coordination of care - Inpatient Certification Based on my medical assessment, after consideration of the patient's comorbidities, presenting symptoms, or acuity I expect that the services needed warrant INPATIENT care.: Yes I certify that my determination is in accordance with my understanding of Medicare's requirements for reasonable and necessary INPATIENT services [42 CFR 412.3e].: Yes Medical Necessity: Significant Comorbidiites Make Outpatient Treatment Too Risky, Risk of Complication if Not Cared For in Hospital
[2019-01-06] MEDS: IPRATROPIUM/ALBUTEROL 0.5-2.5 MG/3 ML AMPUL NEB PRN (16:29)
[2019-01-06] MEDS ORDERED: FUROSEMIDE INJ/PF 20 MG/2 ML SDV IV ONE (16:45)
--- NOTE | 2019-01-06 22:55 | EKG REPORT ---
SEVERITY:- OTHERWISE NORMAL ECG - SINUS TACHYCARDIA : Confirmed by: Marcela Lombardo 06-Jan-2019 22:54:54
[2019-01-07] MEDS: HEPARIN SOD (PORCINE) 5,000 UNIT/ML 1 ML SYRINGE SUBCUT SCH ×4 (03:07→21:36)
[2019-01-07] MEDS: ACETAMINOPHEN 325 MG TABLET PO PRN ×2 (03:42→20:13)
[2019-01-07 06:10] LABS: HEMATOCRIT 30.6 % (36.0-47.0); HEMOGLOBIN 10.1 g/dL (12.0-15.5); MEAN CORPUSCULAR HEMOGLOBIN 30.4 pg (27.0-33.4); MEAN CORPUSCULAR HGB CONC 33.2 g/dL (32.0-36.0); MEAN CORPUSCULAR VOLUME 92 fl (80-97); PLATELET COUNT 163 10^3/uL (150-450); RED BLOOD COUNT 3.34 10^6/uL (3.72-5.28); RED CELL DISTRIBUTION WIDTH 15.4 % (11.5-14.0); WHITE BLOOD COUNT 12.4 10^3/uL (4.0-10.5)
[2019-01-07 06:36] LABS: BLOOD UREA NITROGEN 31 mg/dL (7-20); CHLORIDE 92 mmol/L (98-107); GLUCOSE 91 mg/dL (75-110); POTASSIUM 4.2 mmol/L (3.6-5.0); SODIUM 140.8 mmol/L (137-145)
[2019-01-07 06:57] LABS: ANION GAP 8 (5-19)
[2019-01-07 06:59] LABS: CARBON DIOXIDE 41 mmol/L (22-30)
[2019-01-07] MEDS: IPRATROPIUM/ALBUTEROL 0.5-2.5 MG/3 ML AMPUL NEB PRN ×3 (08:46→20:19)
[2019-01-07] MEDS: LEVOFLOXACIN 750 MG TABLET PO SCH (09:25)
[2019-01-07] MEDS ORDERED: (PENDING PHARMACY ID) (Ondansetron Hcl [Zofran 4 Mg Tablet] 4 MG) PO PRN (09:55)
[2019-01-07] MEDS ORDERED: IPRATROPIUM/ALBUTEROL 0.5-2.5 MG/3 ML AMPUL NEB PRN (09:55)
[2019-01-07] MEDS ORDERED: (PENDING PHARMACY ID) (Roflumilast [Daliresp 500 Mcg Tablet] 500 MCG) PO SCH (10:00)
[2019-01-07] MEDS ORDERED: (PENDING PHARMACY ID) (Bisoprolol Fumarate [Zebeta 5 Mg Tablet] 2.5 MG) PO SCH (10:00)
[2019-01-07] MEDS ORDERED: (PENDING PHARMACY ID) (Tiotropium Bromide [Spiriva Respimat] 2 PUFF) IH SCH (10:00)
[2019-01-07] MEDS ORDERED: ONDANSETRON 4 MG TAB.RAPDIS PO PRN (10:17)
--- NOTE | 2019-01-07 10:19 | PDOC PROGRESS REPORT ---
Subjective Progress Note for:: 01/07/19 Subjective:: Patient is resting comfortably at time of evaluation. She appears stable in good spirits. Currently on BiPAP. She reports using 3 L of oxygen at home at rest, and 4 L during activity. Reports starting oral steroids approximately 4 months ago. She was last hospitalized 1 month ago. She is unsure if the IV Lasix in the last 24 hours help with the breathing. She was also started on antibiotics during that time. She reports last episode of fever and chills nayla roximately 24 hours ago. Denies recent sick contacts. She is speaking in full sentences, and is eating most of her breakfast. Overall reports improvement since admission. Agreeable to increased dose of Lasix trial. Reason For Visit: ACUTE ON CHRONIC RESPIRATORY FAILURE Physical Exam Vital Signs: Temp Pulse Resp BP Pulse Ox 97.8 F 91 32 H 103/60 98 01/07/19 08:00 01/07/19 08:50 01/07/19 08:50 01/07/19 08:00 01/07/19 08:50 Intake & Output 01/06/19 01/07/19 01/08/19 06:59 06:59 06:59 Intake Total 50 Output Total 450 Balance -400 Weight 64.5 kg General appearance: PRESENT: no acute distress Head exam: PRESENT: atraumatic, normocephalic Eye exam: PRESENT: conjunctiva pink, EOMI, PERRLA. ABSENT: scleral icterus Ear exam: PRESENT: normal external ear exam Mouth exam: PRESENT: moist, tongue midline Respiratory exam: PRESENT: other - No appreciable wheeze. No significant rhonchi or crackles. Cardiovascular exam: PRESENT: +S1, +S2, tachycardia Pulses: PRESENT: +1 pedal pulses bilateral - Bilateral lower extremities GI/Abdominal exam: PRESENT: normal bowel sounds, soft. ABSENT: distended, guarding, mass, organolmegaly, rebound, tenderness Rectal exam: PRESENT: deferred Extremities exam: PRESENT: other - No edema bilateral lower extremities. Musculoskeletal exam: PRESENT: full ROM, normal inspection Neurological exam: PRESENT: alert, awake, oriented to person, oriented to place, oriented to time, oriented to situation, CN II-XII grossly intact. ABSENT: motor sensory deficit Psychiatric exam: PRESENT: appropriate affect, normal mood. ABSENT: homicidal ideation, suicidal ideation Results Laboratory Results: 01/07/19 05:15 03/22/19 05:15 01/06/19 01/06/19 01/06/19 12:14 12:14 12:45 WBC 23.9 H RBC 3.74 Hgb 11.5 L Hct 34.5 L MCV 92 MCH 30.7 MCHC 33.4 RDW 15.4 H Plt Count 201 Seg Neutrophils % Not Reportable Lymphocytes % Not Reportable Monocytes % Not Reportable Eosinophils % Not Reportable Basophils % Not Reportable Absolute Neutrophils Not Reportable Absolute Lymphocytes Not Reportable Absolute Monocytes Not Reportable Absolute Eosinophils Not Reportable Absolute Basophils Not Reportable Carbonic Acid 1.94 H HCO3/H2CO3 Ratio 19:1 ABG pH 7.38 ABG pCO2 64.4 H ABG pO2 150.1 H ABG HCO3 37.6 H ABG O2 Saturation 98.8 H ABG Base Excess 10.2 FiO2 60% Sodium 139.7 Potassium 4.4 Chloride 91 L Carbon Dioxide 38 H Anion Gap 11 BUN 31 H Creatinine 0.84 Est GFR ( Amer) > 60 Est GFR (Non-Af Amer) > 60 Glucose 174 H Calcium 9.6 Total Bilirubin 0.5 AST 13 L ALT 16 Alkaline Phosphatase 118 Total Protein 6.3 Albumin 3.7 01/07/19 01/07/19 05:15 05:15 WBC 12.4 H RBC 3.34 L Hgb 10.1 L Hct 30.6 L MCV 92 MCH 30.4 MCHC 33.2 RDW 15.4 H Plt Count 163 Seg Neutrophils % Lymphocytes % Monocytes % Eosinophils % Basophils % Absolute Neutrophils Absolute Lymphocytes Absolute Monocytes Absolute Eosinophils Absolute Basophils Carbonic Acid HCO3/H2CO3 Ratio ABG pH ABG pCO2 ABG pO2 ABG HCO3 ABG O2 Saturation ABG Base Excess FiO2 Sodium 140.8 Potassium 4.2 Chloride 92 L Carbon Dioxide 41 H* Anion Gap 8 BUN 31 H Creatinine 0.69 Est GFR ( Amer) > 60 Est GFR (Non-Af Amer) > 60 Glucose 91 Calcium 9.0 Total Bilirubin AST ALT Alkaline Phosphatase Total Protein Albumin 01/06/19 01/06/19 01/06/19 12:14 12:14 14:40 Creatine Kinase < 20 L CK-MB (CK-2) 0.65 Troponin I 0.060 0.055 NT-Pro-B Natriuret Pep 7070 H 01/07/19 05:15 Creatine Kinase CK-MB (CK-2) Troponin I NT-Pro-B Natriuret Pep 3300 H Impressions: Chest X-Ray 01/06/19 12:25 IMPRESSION: Asymmetric edema or pneumonia. Clinical correlation is needed. There is a background of COPD. Assessment and Plan - Diagnosis (1) Acute diastolic heart failure Is this a current diagnosis for this admission?: Yes (2) Acute respiratory failure with hypoxia and hypercapnia Is this a current diagnosis for this admission?: Yes - Time Time Spent with patient: 15-24 minutes Smoking Cessation Education: 3 to 10 minutes Medications reviewed and adjusted accordingly: Yes - Inpatient Certification Based on my medical assessment, after consideration of the patient's comorbidities, presenting symptoms, or acuity I expect that the services needed warrant INPATIENT care.: Yes I certify that my determination is in accordance with my understanding of Medicare's requirements for reasonable and necessary INPATIENT services [42 CFR 412.3e].: Yes - Plan Summary Plan Summary: - Diagnosis (1) Acute respiratory failure with hypoxia and hypercapnia Is this a current diagnosis for this admission?: Yes Plan: -Home oxygen 3 L at rest, 4 L during activity via nasal cannula -Continue to wean from BiPAP as possible (2) Acute diastolic heart failure Is this a current diagnosis for this admission?: Yes Plan: -History of pulmonary hypertension -History of grade 2 diastolic dysfunction -Echo results pending. Last echocardiogram prior to that was 2 years ago. -Repeat trial of Lasix with IV 40 mg x1 -Monitor electrolytes. Normal renal function. -BNP trending down since admission. Monitoring -PRN NSAIDs from home meds stopped. Started on daily oral steroids approximately 4 months ago. Fluid overload seems to be the most likely cause of acute respiratory failure. (3) Community acquired pneumonia Qualifiers: Laterality: right Lung location: lower lobe of lung Qualified Code(s): J18.1 - Lobar pneumonia, unspecified organism Is this a current diagnosis for this admission?: Yes Plan: -WBC 23 on admission. Hard to rule out at this point. Given her poor respiratory function, will continue antibiotic coverage with Levaquin.
[2019-01-07] MEDS ORDERED: FUROSEMIDE INJ/PF 40 MG/4 ML SDV IV ONE (11:00)
[2019-01-07] MEDS: PREDNISONE 10 MG TABLET PO SCH (11:56)
[2019-01-07] MEDS: ROFLUMILAST 500 MCG TABLET PO SCH (11:56)
[2019-01-07] MEDS: ATENOLOL 50 MG TABLET PO SCH (11:56)
[2019-01-07] MEDS: LEVOTHYROXINE SODIUM 0.025 MG TABLET PO SCH (11:57)
[2019-01-07] MEDS: CETIRIZINE 5 MG TABLET PO SCH (17:13)
[2019-01-07] MEDS: MONTELUKAST SODIUM 10 MG TABLET PO SCH (21:36)
[2019-01-07] MEDS: ROPINIROLE HCL 1 MG TABLET PO SCH (21:36)
[2019-01-07] MEDS: GABAPENTIN 100 MG CAPSULE PO SCH (21:36)
[2019-01-07] MEDS ORDERED: (PENDING PHARMACY ID) (Ropinirole Hcl [Requip] 1 MG) PO SCH (22:00)
--- NOTE | 2019-01-07 22:25 | XCELERA REPORT ---
[address] [address] Transthoracic Echocardiogram Report Name: AUDIE KIMBLE Age: 58 yrs Gender: Female : 1960 Patient Status: Inpatient Patient Location: [address] [place] [address] Study Date: 01/06/2019 06:46 PM Height: 65 in Weight: 143 lb BSA: 1.7 m2 Procedure: A two-dimensional transthoracic echocardiogram with color flow Doppler was performed. The study was technically difficult with many images being suboptimal in quality. The study was technically limited with all images being suboptimal in quality. Images were not obtained from all of the standard acoustic windows due to the limited scope of the study. Reason For Study: acute heart failure History: CHF. Ordering Physician: DMITRIY CAMACHO Performed By: Michelle Tee Interpretation Summary No True apical 2 chamber views obtained.Hence cannot comment on the apical anterior , the basal anterior, the basal inferior and apical inferior mohan.The mid anterior , the mid inferior and the rest of the LV mohan contract normally. .Normal LVEF is normal and is low normal at 55% in the limited views. Doppler measurements suggest pseudonormalized left ventricular relaxation, which is associated with grade II/IV or mild to moderate diastolic dysfunction Flattened septum is consistent with RV pressure/volume overload The right ventricle is moderate to severely dilated. The right ventricular systolic function is moderate to severely reduced. The right atrium is moderately dilated. A mass is seen in the right atrium. The mass is non mobile ,,probably calcified and is attached to the mid interatrial septum.Recommend SOCRATES to further assess this. The left atrial size is normal. The interatrial septum is intact with no evidence for an atrial septal defect. There is no Doppler evidence for an interatrial shunt There is no evidence of mitral valve prolapse. There is no vegetation seen on the mitral valve. There is a trace amount of mitral regurgitation There is no aortic valvular vegetation. There is no aortic valve stenosis There is no LVOT obstruction. No aortic regurgitation is present. There is no tricuspid stenosis. There is a moderate amount of tricuspid regurgitation There is servere pulmonary hypertension by echo RVSp is 86 to 91 mm of Hg , with RA mean of 5 to 10. There is no pulmonic valvular stenosis. There is no pulmonic valvular regurgitation. The inferior vena cava appeared normal and decreased > 50% with respiration (RAP 5-10 mmHg) The aortic root is not well visualized but is probably normal size. There is no pericardial effusion. MMode/2D Measurements & Calculations RVDd: 2.0 cm LVIDd: 5.1 cm FS: 28.4 % Ao root diam: 2.5 cm IVSd: 0.82 cm LVIDs: 3.6 cm EDV(Teich): 121.4 ml Ao root area: 5.0 cm2 LVPWd: 0.90 cm ESV(Teich): 55.2 ml LA dimension: 3.1 cm EF(Teich): 54.6 % Doppler Measurements & Calculations MV E max leroy: MV P1/2t max leroy: Ao V2 max: LV V1 max P.9 cm/sec 78.5 cm/sec 112.9 cm/sec 3.0 mmHg MV A max leroy: MV P1/2t: 42.1 msec Ao max P.1 mmHg LV V1 max: 88.8 cm/sec MVA(P1/2t): 5.2 cm2 85.9 cm/sec MV E/A: 0.76 MV dec slope: 546.2 cm/sec2 MV dec time: 0.15 sec PA V2 max: TR max leroy: MV P1/2t-pr_phl: 80.8 cm/sec 447.9 cm/sec 47.6 msec PA max PG: TR max P.3 mmHg 2.6 mmHg Left Ventricle The left ventricle is normal in size. There is normal left ventricular wall thickness. No True apical 2 chamber views obtained.Hence cannot comment on the apical anterior , the basal anterior, the basal inferior and apical inferior mohan.The mid anterior , the mid inferior and the rest of the LV mohan contract normally. .Normal LVEF is normal and is low normal at 55% in the limited views. Doppler measurements suggest pseudonormalized left ventricular relaxation, which is associated with grade II/IV or mild to moderate diastolic dysfunction. Flattened septum is consistent with RV pressure/volume overload. There is no thrombus. There is no ventricular septal defect visualized. Right Ventricle The right ventricle is moderate to severely dilated. The right ventricular systolic function is moderate to severely reduced. Atria The right atrium is moderately dilated. The mass is non mobile ,,probably calcified and is attached to the mid interatrial septum.Recommend SOCRATES to further assess this. A mass is seen in the right atrium. The left atrial size is normal. The interatrial septum is intact with no evidence for an atrial septal defect. There is no Doppler evidence for an interatrial shunt. Mitral Valve There is no evidence of mitral valve prolapse. There is no vegetation seen on the mitral valve. There is no mitral valve stenosis. There is a trace amount of mitral regurgitation. Aortic Valve There is no aortic valvular vegetation. There is no aortic valve stenosis. There is no LVOT obstruction. No aortic regurgitation is present. Tricuspid Valve There is no tricuspid stenosis. There is a moderate amount of tricuspid regurgitation. There is servere pulmonary hypertension by echo. RVSp is 86 to 91 mm of Hg , with RA mean of 5 to 10. Pulmonic Valve There is no pulmonic valvular stenosis. There is no pulmonic valvular regurgitation. Great Vessels The aortic root is not well visualized but is probably normal size. The inferior vena cava appeared normal and decreased > 50% with respiration (RAP 5-10 mmHg). Effusions There is no pericardial effusion. : DMITRIY CAMACHO > Shana Greene
[2019-01-08] MEDS: IPRATROPIUM/ALBUTEROL 0.5-2.5 MG/3 ML AMPUL NEB PRN ×5 (00:31→20:12)
[2019-01-08 05:50] LABS: ABSOLUTE LYMPHOCYTES (AUTO) 0.7 10^3/uL (0.5-4.7); ABSOLUTE MONOCYTES (AUTO) 0.2 10^3/uL (0.1-1.4); ABSOLUTE NEUT (AUTO) 5.4 10^3/uL (1.7-8.2); BASOPHILS % (AUTO) 0.3 % (0-2); EOSINOPHILS % (AUTO) 0.5 % (0-6); HEMATOCRIT 29.5 % (36.0-47.0); LYMPHOCYTES % (AUTO) 10.5 % (13-45); MEAN CORPUSCULAR HEMOGLOBIN 30.9 pg (27.0-33.4); MEAN CORPUSCULAR VOLUME 91 fl (80-97); MONOCYTES % (AUTO) 3.9 % (3-13); PLATELET COUNT 157 10^3/uL (150-450); RED BLOOD COUNT 3.25 10^6/uL (3.72-5.28); RED CELL DISTRIBUTION WIDTH 15.1 % (11.5-14.0); SEGMENTED NEUTROPHILS % (AUTO) 84.8 % (42-78); TOTAL CELLS COUNTED % (AUTO) 100 %; WHITE BLOOD COUNT 6.3 10^3/uL (4.0-10.5)
[2019-01-08] MEDS: LEVOTHYROXINE SODIUM 0.025 MG TABLET PO SCH (06:07)
[2019-01-08] MEDS: HEPARIN SOD (PORCINE) 5,000 UNIT/ML 1 ML SYRINGE SUBCUT SCH ×3 (06:07→22:06)
[2019-01-08 06:10] LABS: ALANINE AMINOTRANSFERASE 15 U/L (9-52); ALBUMIN 3.2 g/dL (3.5-5.0); ALKALINE PHOSPHATASE 86 U/L (38-126); ASPARTATE AMINO TRANSFERASE 9 U/L (14-36); BILIRUBIN,DIRECT 0.3 mg/dL (0.0-0.4); BILIRUBIN,TOTAL 0.5 mg/dL (0.2-1.3); BLOOD UREA NITROGEN 19 mg/dL (7-20); CALCIUM 9.1 mg/dL (8.4-10.2); CHLORIDE 86 mmol/L (98-107); GLUCOSE 91 mg/dL (75-110); POTASSIUM 3.8 mmol/L (3.6-5.0); SODIUM 136.2 mmol/L (137-145); TOTAL PROTEIN 5.7 g/dL (6.3-8.2)
[2019-01-08 06:19] LABS: ANION GAP 9 (5-19)
[2019-01-08 06:20] LABS: CARBON DIOXIDE 41 mmol/L (22-30)
[2019-01-08] MEDS: PANTOPRAZOLE SODIUM 40 MG TABLET.DR PO SCH (08:08)
[2019-01-08] MEDS: LEVOFLOXACIN 750 MG TABLET PO SCH (10:05)
[2019-01-08] MEDS: ATENOLOL 50 MG TABLET PO SCH (10:05)
[2019-01-08] MEDS: PREDNISONE 10 MG TABLET PO SCH (10:05)
[2019-01-08] MEDS: ROFLUMILAST 500 MCG TABLET PO SCH (10:05)
[2019-01-08] MEDS: TIOTROPIUM BROMIDE DPI 5 CAP/KIT (18 MCG/CAP) IH SCH (10:07)
[2019-01-08] MEDS: FLUTICASONE/VILANTEROL 200-25 MCG/DOSE IH SCH (10:08)
[2019-01-08] MEDS: ACETAMINOPHEN 325 MG TABLET PO PRN ×2 (12:22→18:17)
--- NOTE | 2019-01-08 13:47 | PDOC PROGRESS REPORT ---
Subjective Progress Note for:: 01/08/19 Subjective:: Patient was resting comfortably on 5 L of oxygen via nasal cannula this morning time of evaluation. She spent approximately 3 hours off the BiPAP yesterday. She feels that the Lasix trial yesterday improved her breathing. She is agreeable to an additional Lasix trial times 2 days. Denies recent fever or chills, acute changes in breathing, chest pain. Overall seems to be improving. Reason For Visit: ACUTE ON CHRONIC RESPIRATORY FAILURE Physical Exam Vital Signs: Temp Pulse Resp BP Pulse Ox 97.8 F 85 20 90/53 L 97 01/08/19 07:53 01/08/19 12:20 01/08/19 12:20 01/08/19 07:53 01/08/19 12:20 Intake & Output 01/07/19 01/08/19 01/09/19 06:59 06:59 06:59 Intake Total 50 1388 Output Total 450 400 Balance -400 988 Weight 64.5 kg 63.7 kg General appearance: PRESENT: no acute distress, cooperative, well-developed, well-nourished Head exam: PRESENT: atraumatic, normocephalic Eye exam: PRESENT: conjunctiva pink, EOMI, PERRLA. ABSENT: scleral icterus Mouth exam: PRESENT: moist, tongue midline Respiratory exam: PRESENT: other - No appreciable wheeze, rhonchi. Questionable rales at the bases. Some diminishment throughout bilaterally. Cardiovascular exam: PRESENT: RRR, +S1, +S2 Pulses: PRESENT: +1 pedal pulses bilateral Vascular exam: PRESENT: normal capillary refill GI/Abdominal exam: PRESENT: normal bowel sounds, soft. ABSENT: distended, guarding, mass, organolmegaly, rebound, tenderness Extremities exam: PRESENT: other - 1+ edema bilateral lower extremities. Musculoskeletal exam: PRESENT: full ROM, normal inspection Neurological exam: PRESENT: alert, awake, oriented to person, oriented to place, oriented to time, oriented to situation, CN II-XII grossly intact. ABSENT: motor sensory deficit Psychiatric exam: PRESENT: appropriate affect, normal mood. ABSENT: homicidal i deation, suicidal ideation Results Laboratory Results: 01/08/19 04:46 01/08/19 04:46 01/08/19 01/08/19 01/08/19 04:46 04:46 04:46 WBC 6.3 RBC 3.25 L Hgb 10.0 L Hct 29.5 L MCV 91 MCH 30.9 MCHC 34.0 RDW 15.1 H Plt Count 157 Seg Neutrophils % 84.8 H Lymphocytes % 10.5 L Monocytes % 3.9 Eosinophils % 0.5 Basophils % 0.3 Absolute Neutrophils 5.4 Absolute Lymphocytes 0.7 Absolute Monocytes 0.2 Absolute Eosinophils 0.0 Absolute Basophils 0.0 Sodium 136.2 L Potassium 3.8 Chloride 86 L Carbon Dioxide 41 H* Anion Gap 9 BUN 19 Creatinine 0.56 Est GFR ( Amer) > 60 Est GFR (Non-Af Amer) > 60 Glucose 91 Calcium 9.1 Magnesium 1.9 Total Bilirubin 0.5 AST 9 L ALT 15 Alkaline Phosphatase 86 Total Protein 5.7 L Albumin 3.2 L 01/06/19 01/06/19 01/06/19 12:14 12:14 14:40 Creatine Kinase < 20 L CK-MB (CK-2) 0.65 Troponin I 0.060 0.055 NT-Pro-B Natriuret Pep 7070 H 01/07/19 01/08/19 05:15 04:46 Creatine Kinase CK-MB (CK-2) Troponin I NT-Pro-B Natriuret Pep 3300 H 1010 H Impressions: Chest X-Ray 01/06/19 12:25 IMPRESSION: Asymmetric edema or pneumonia. Clinical correlation is needed. There is a background of COPD. Assessment and Plan - Diagnosis (1) Acute diastolic heart failure Is this a current diagnosis for this admission?: Yes (2) Acute respiratory failure with hypoxia and hypercapnia Is this a current diagnosis for this admission?: Yes (3) Diastolic heart failure Qualifiers: Heart failure chronicity: unspecified Qualified Code(s): I50.30 - Unspe cified diastolic (congestive) heart failure Is this a current diagnosis for this admission?: Yes - Time Time Spent with patient: 15-24 minutes Medications reviewed and adjusted accordingly: Yes Anticipated discharge: Home - Inpatient Certification Based on my medical assessment, after consideration of the patient's comorbidities, presenting symptoms, or acuity I expect that the services needed warrant INPATIENT care.: Yes I certify that my determination is in accordance with my understanding of Medicare's requirements for reasonable and necessary INPATIENT services [42 CFR 412.3e].: Yes - Plan Summary Plan Summary: Plan Summary: - Diagnosis (1) Acute respiratory failure with hypoxia and hypercapnia Is this a current diagnosis for this admission?: Yes Plan: -Home oxygen 3 L at rest, 4 L during activity via nasal cannula -Continue to wean from BiPAP as possible -Seems to be related to heart failure. (2) Acute diastolic heart failure Is this a current diagnosis for this admission?: Yes Plan: -Echocardiogram results showed diastolic failure. Normal LVEF. Diastolic dysfunction is grade 2-4. For full report see desktop publishing specialist report. -Give IV Lasix 20 mg daily times 2 days. -Improved with IV Lasix 40 mg trial. Monitor blood pressure (3) Community acquired pneumonia Qualifiers: Laterality: right Lung location: lower lobe of lung Qualified Code(s): J18.1 - Lobar pneumonia, unspecified organism Is this a current diagnosis for this admission?: Yes Plan: -Leukocytosis is resolved. Is not a confirmed diagnosis at this point. Continue Levaquin coverage due to her significantly diminished lungs. -Systolic blood pressure runs in the 90s. Diastolic blood pressure runs in the 50s. This appears to be her normal. Given that her sodium is just slightly below normal, we will give judicious fluids per cardiology recommendations. (4) right atrium mass-incidental finding on echocardiogram. Recommend SOCRATES to further assess. This can be done outpatient. Cardiology follow-up on outpatient.
[2019-01-08] MEDS: FUROSEMIDE INJ/PF 20 MG/2 ML SDV IV SCH (14:58)
[2019-01-08] MEDS: CETIRIZINE 5 MG TABLET PO SCH (18:16)
[2019-01-08] MEDS: MONTELUKAST SODIUM 10 MG TABLET PO SCH (22:06)
[2019-01-08] MEDS: GABAPENTIN 100 MG CAPSULE PO SCH (22:06)
[2019-01-08] MEDS: ROPINIROLE HCL 1 MG TABLET PO SCH (22:11)
[2019-01-09] MEDS: IPRATROPIUM/ALBUTEROL 0.5-2.5 MG/3 ML AMPUL NEB PRN ×5 (00:27→19:39)
[2019-01-09 04:50] LABS: ABSOLUTE LYMPHOCYTES (AUTO) 0.9 10^3/uL (0.5-4.7); ABSOLUTE MONOCYTES (AUTO) 0.3 10^3/uL (0.1-1.4); BASOPHILS % (AUTO) 0.4 % (0-2); EOSINOPHILS % (AUTO) 0.9 % (0-6); HEMATOCRIT 29.4 % (36.0-47.0); HEMOGLOBIN 9.8 g/dL (12.0-15.5); LYMPHOCYTES % (AUTO) 16.5 % (13-45); MEAN CORPUSCULAR HEMOGLOBIN 30.6 pg (27.0-33.4); MEAN CORPUSCULAR HGB CONC 33.5 g/dL (32.0-36.0); MEAN CORPUSCULAR VOLUME 91 fl (80-97); MONOCYTES % (AUTO) 5.5 % (3-13); PLATELET COUNT 169 10^3/uL (150-450); RED BLOOD COUNT 3.22 10^6/uL (3.72-5.28); RED CELL DISTRIBUTION WIDTH 15.3 % (11.5-14.0); SEGMENTED NEUTROPHILS % (AUTO) 76.7 % (42-78); TOTAL CELLS COUNTED % (AUTO) 100 %; WHITE BLOOD COUNT 5.2 10^3/uL (4.0-10.5)
[2019-01-09 05:17] LABS: ALANINE AMINOTRANSFERASE 22 U/L (9-52); ALBUMIN 3.1 g/dL (3.5-5.0); ALKALINE PHOSPHATASE 67 U/L (38-126); ASPARTATE AMINO TRANSFERASE 25 U/L (14-36); BILIRUBIN,DIRECT 0.4 mg/dL (0.0-0.4); BILIRUBIN,TOTAL 0.5 mg/dL (0.2-1.3); CALCIUM 8.6 mg/dL (8.4-10.2); CHLORIDE 100 mmol/L (98-107); GLUCOSE 97 mg/dL (75-110); POTASSIUM 4.5 mmol/L (3.6-5.0); SODIUM 137.5 mmol/L (137-145); TOTAL PROTEIN 6.3 g/dL (6.3-8.2)
[2019-01-09 05:35] LABS: ANION GAP 11 (5-19)
[2019-01-09] MEDS: HEPARIN SOD (PORCINE) 5,000 UNIT/ML 1 ML SYRINGE SUBCUT SCH ×3 (05:38→21:13)
[2019-01-09] MEDS: LEVOTHYROXINE SODIUM 0.025 MG TABLET PO SCH (05:38)
[2019-01-09 05:47] LABS: BLOOD UREA NITROGEN 49 mg/dL (7-20)
[2019-01-09 05:48] LABS: CARBON DIOXIDE 27 mmol/L (22-30)
[2019-01-09] MEDS: PANTOPRAZOLE SODIUM 40 MG TABLET.DR PO SCH (07:47)
[2019-01-09] MEDS: LEVOFLOXACIN 750 MG TABLET PO SCH (09:58)
[2019-01-09] MEDS: PREDNISONE 10 MG TABLET PO SCH (09:58)
[2019-01-09] MEDS: ATENOLOL 50 MG TABLET PO SCH (09:58)
[2019-01-09] MEDS: ROFLUMILAST 500 MCG TABLET PO SCH (09:58)
[2019-01-09] MEDS: FLUTICASONE/VILANTEROL 200-25 MCG/DOSE IH SCH (09:59)
[2019-01-09] MEDS: TIOTROPIUM BROMIDE DPI 5 CAP/KIT (18 MCG/CAP) IH SCH (09:59)
[2019-01-09] MEDS: FUROSEMIDE INJ/PF 20 MG/2 ML SDV IV SCH (09:59)
[2019-01-09] MEDS: ACETAMINOPHEN 325 MG TABLET PO PRN ×2 (13:08→20:36)
[2019-01-09] MEDS ORDERED: NORMAL SALINE 1000 ML 250 ML IV PRN (17:07)
--- NOTE | 2019-01-09 17:10 | PDOC PROGRESS REPORT ---
Subjective Progress Note for:: 01/09/19 Subjective:: Patient again reports improvements. She is on nasal cannula O2 via 5 L. This is close to her home oxygen level. Upon further investigation she reports being on a diuretic pill previously, and there was some concern that it caused swelling in the face. The medication was not Lasix. She was recently started on a new diuretic pill, but subsequently admitted to the hospital within 1-2 days of supposed to starting that diuretic. Denies recent fever or chills. S welling in her ankles is down to a minimal. She seems to be very astute about her medical condition, and a reliable historian, and also reliably assesses her condition. She feels she will be ready for discharge in the next 1-2 days. To have good support at home. Reason For Visit: ACUTE ON CHRONIC RESPIRATORY FAILURE Physical Exam Vital Signs: Temp Pulse Resp BP Pulse Ox 97.8 F 76 24 H 90/53 L 97 01/09/19 15:08 01/09/19 16:00 01/09/19 16:00 01/09/19 15:08 01/09/19 16:00 Intake & Output 01/08/19 01/09/19 01/10/19 06:59 06:59 06:59 Intake Total 1388 1200 592 Output Total 400 Balance 988 1200 592 Weight 63.7 kg 63.4 kg General appearance: PRESENT: no acute distress, cooperative, well-developed, well-nourished Head exam: PRESENT: atraumatic, normocephalic Eye exam: PRESENT: conjunctiva pink, EOMI, PERRLA. ABSENT: scleral icterus Ear exam: PRESENT: normal external ear exam Mouth exam: PRESENT: moist, tongue midline Respiratory exam: PRESENT: other - No appreciable wheeze, rhonchi. Crackles if present are at a very minimal. She is somewhat difficult to auscultate. Cardiovascular exam: PRESENT: RRR, +S1, +S2 GI/Abdominal exam: PRESENT: normal bowel sounds, soft. ABSENT: distended, guarding, mass, organolmegaly, rebound, tenderness Extremities exam: PRESENT: other - Trace bilateral lower extremities. Neurological exam: PRESENT: alert, awake, oriented to person, oriented to place, oriented to time, oriented to situation, CN II-XII grossly intact, other - Gait not assessed.. ABSENT: motor sensory deficit Psychiatric exam: PRESENT: appropriate affect, normal mood. ABSENT: homicidal ideation, suicidal ideation Results Laboratory Results: 01/09/19 04:11 01/09/19 04:11 01/09/19 01/09/19 01/09/19 04:11 04:11 04:11 WBC 5.2 RBC 3.22 L Hgb 9.8 L Hct 29.4 L MCV 91 MCH 30.6 MCHC 33.5 RDW 15.3 H Plt Count 169 Seg Neutrophils % 76.7 Lymphocytes % 16.5 Monocytes % 5.5 Eosinophils % 0.9 Basophils % 0.4 Absolute Neutrophils 4.0 Absolute Lymphocytes 0.9 Absolute Monocytes 0.3 Absolute Eosinophils 0.0 Absolute Basophils 0.0 Sodium 137.5 Potassium 4.5 Chloride 100 Carbon Dioxide 27 D Anion Gap 11 BUN 49 H D Creatinine 2.50 H Est GFR ( Amer) 24 L Est GFR (Non-Af Amer) 20 L Glucose 97 Calcium 8.6 Magnesium 2.0 Total Bilirubin 0.5 AST 25 ALT 22 Alkaline Phosphatase 67 Total Protein 6.3 Albumin 3.1 L 01/06/19 01/06/19 01/06/19 12:14 12:14 14:40 Creatine Kinase < 20 L CK-MB (CK-2) 0.65 Troponin I 0.060 0.055 NT-Pro-B Natriuret Pep 7070 H 01/07/19 01/08/19 01/09/19 05:15 04:46 04:11 Creatine Kinase CK-MB (CK-2) Troponin I NT-Pro-B Natriuret Pep 3300 H 1010 H 620 Impressions: Chest X-Ray 01/06/19 12:25 IMPRESSION: Asymmetric edema or pneumonia. Clinical correlation is needed. There is a background of COPD. Assessment and Plan - Diagnosis (1) Acute diastolic heart failure Is this a current diagnosis for this admission?: Yes (2) Acute respiratory failure with hypoxia and hypercapnia Is this a current diagnosis for this admission?: Yes (3) Diastolic heart failure Qualifiers: Heart failure chronicity: unspecified Qualified Code(s): I50.30 - Unspecified diastolic (congestive) heart failure Is this a current diagnosis for this admission?: Yes (4) JUAN ALBERTO (acute kidney injury) Is this a current diagnosis for this admission?: Yes - Time Time Spent with patient: 15-24 minutes Medications reviewed and adjusted accordingly: Yes Anticipated discharge: Home Within: within 48 hours - Inpatient Certification Based on my medical assessment, after consideration of the patient's comorbidities, presenting symptoms, or acuity I expect that the services needed warrant INPATIENT care.: Yes I certify that my determination is in accordance with my understanding of Medicare's requirements for reasonable and necessary INPATIENT services [42 CFR 412.3e].: Yes - Plan Summary Plan Summary: (1) Acute respiratory failure with hypoxia and hypercapnia/history of COPD/O2 dependent/alpha 1 antitrypsin deficiency Is this a current diagnosis for this admission?: Yes Plan: -Home oxygen 3 L at rest, 4 L during activity via nasal cannula -Continue to wean from BiPAP as possible -Seems to be related to heart failure. - 01/09 on 5L -Acidosis seems to have much improved. Bicarb on this morning's labs was down from 41-27 (2) Acute diastolic heart failure Is this a current diagnosis for this admission?: Yes Plan: -Echocardiogram results showed diastolic failure. Normal LVEF. Diastolic dysfunction is grade 2-4. For full report see clinical sociologist report. -IV Lasix times 40 mg given for 1 day, followed by IV Lasix 20 mg daily x2. The aforementioned doses worked well in regards to her respiratory status however they caused her creatinine to raise to 2.50. -Seems to need Lasix most likely every other day on discharge. She also seems to have good enough insight into her condition to know when to take it as needed. -She plans to follow with her 's clinical sociologist on discharge. (3) Community acquired pneumonia Qualifiers: Laterality: right Lung location: lower lobe of lung Qualified Code(s): J18.1 - Lobar pneumonia, unspecified organism Is this a current diagnosis for this admission?: Yes Plan: -Leukocytosis is resolved. Is not a confirmed diagnosis at this point. Continue Levaquin coverage due to her significantly diminished lungs. -Systolic blood pressure runs in the 90s. Diastolic blood pressure runs in the 50s. This appears to be her normal. Given that her sodium is just slightly below normal, we will give judicious fluids per cardiology recommendations. (4) right atrium mass-incidental finding on echocardiogram. Recommend SOCRATES to further assess. This can be done outpatient. Cardiology follow-up on outpatient. (5) JUAN ALBERTO. Secondary to IV Lasix use. Creatinine jumped up to 2.50 from 0.56. -Hold further diuretic use for the time being. -will give judicious fluids and consider consulting nephrology if needed. -250 mL of normal saline at 85 cc an hour x1. Recheck labs in the morning.
[2019-01-09] MEDS: CETIRIZINE 5 MG TABLET PO SCH (17:19)
[2019-01-09] MEDS: GABAPENTIN 100 MG CAPSULE PO SCH (21:13)
[2019-01-09] MEDS: MONTELUKAST SODIUM 10 MG TABLET PO SCH (21:13)
[2019-01-09] MEDS: ROPINIROLE HCL 1 MG TABLET PO SCH (21:13)
[2019-01-10 05:29] LABS: HEMATOCRIT 29.4 % (36.0-47.0); HEMOGLOBIN 9.9 g/dL (12.0-15.5); MEAN CORPUSCULAR HEMOGLOBIN 30.6 pg (27.0-33.4); MEAN CORPUSCULAR HGB CONC 33.8 g/dL (32.0-36.0); MEAN CORPUSCULAR VOLUME 91 fl (80-97); PLATELET COUNT 179 10^3/uL (150-450); RED BLOOD COUNT 3.24 10^6/uL (3.72-5.28); RED CELL DISTRIBUTION WIDTH 15.2 % (11.5-14.0); WHITE BLOOD COUNT 5.3 10^3/uL (4.0-10.5)
[2019-01-10 05:46] LABS: ALANINE AMINOTRANSFERASE 14 U/L (9-52); ALBUMIN 3.3 g/dL (3.5-5.0); ALKALINE PHOSPHATASE 72 U/L (38-126); ASPARTATE AMINO TRANSFERASE 10 U/L (14-36); BILIRUBIN,DIRECT 0.3 mg/dL (0.0-0.4); BILIRUBIN,TOTAL 0.4 mg/dL (0.2-1.3); BLOOD UREA NITROGEN 12 mg/dL (7-20); CALCIUM 9.4 mg/dL (8.4-10.2); CHLORIDE 89 mmol/L (98-107); GLUCOSE 93 mg/dL (75-110); POTASSIUM 3.8 mmol/L (3.6-5.0); SODIUM 137.6 mmol/L (137-145); TOTAL PROTEIN 5.7 g/dL (6.3-8.2)
[2019-01-10 05:54] LABS: ANION GAP 9 (5-19)
[2019-01-10 06:01] LABS: CARBON DIOXIDE 40 mmol/L (22-30)
[2019-01-10] MEDS: LEVOTHYROXINE SODIUM 0.025 MG TABLET PO SCH (06:05)
[2019-01-10] MEDS: HEPARIN SOD (PORCINE) 5,000 UNIT/ML 1 ML SYRINGE SUBCUT SCH ×3 (06:05→23:28)
[2019-01-10] MEDS: IPRATROPIUM/ALBUTEROL 0.5-2.5 MG/3 ML AMPUL NEB PRN ×3 (09:00→20:03)
[2019-01-10] MEDS: LEVOFLOXACIN 750 MG TABLET PO SCH (09:35)
[2019-01-10] MEDS: ROFLUMILAST 500 MCG TABLET PO SCH (09:35)
[2019-01-10] MEDS: PREDNISONE 10 MG TABLET PO SCH (09:35)
[2019-01-10] MEDS: PANTOPRAZOLE SODIUM 40 MG TABLET.DR PO SCH (09:36)
[2019-01-10] MEDS: FLUTICASONE/VILANTEROL 200-25 MCG/DOSE IH SCH (09:36)
[2019-01-10] MEDS: ATENOLOL 50 MG TABLET PO SCH (09:36)
[2019-01-10] MEDS: TIOTROPIUM BROMIDE DPI 5 CAP/KIT (18 MCG/CAP) IH SCH (09:36)
--- NOTE | 2019-01-10 11:34 | PDOC PROGRESS REPORT ---
Subjective Progress Note for:: 01/10/19 Subjective:: 01/10/2019-no acute events in the last 24 hours. Patient is afebrile. Patient is comfortable in the chair complaining of slight pain in the right side of the chest. Patient's hemoglobin dropped from 11.5 on admission to 9.9 today plan is to recheck her labs tomorrow. BNP came down to 620. Reason For Visit: ACUTE ON CHRONIC RESPIRATORY FAILURE Physical Exam Vital Signs: Temp Pulse Resp BP Pulse Ox 97.8 F 87 20 119/65 100 01/10/19 08:25 01/10/19 09:01 01/10/19 09:01 01/10/19 08:25 01/10/19 09:01 Intake & Output 01/09/19 01/10/19 01/11/19 06:59 06:59 06:59 Intake Total 1200 1217 Balance 1200 1217 Weight 63.4 kg 64 kg General appearance: PRESENT: no acute distress Head exam: PRESENT: atraumatic Eye exam: PRESENT: PERRLA Mouth exam: PRESENT: moist, tongue midline Neck exam: ABSENT: carotid bruit, JVD, lymphadenopathy, thyromegaly Respiratory exam: PRESENT: decreased breath sounds Cardiovascular exam: PRESENT: RRR. ABSENT: diastolic murmur, rubs, systolic murmur GI/Abdominal exam: PRESENT: normal bowel sounds, soft. ABSENT: distended, guarding, mass, organolmegaly, rebound, tenderness Extremities exam: PRESENT: full ROM. ABSENT: calf tenderness, clubbing, pedal edema Neurological exam: PRESENT: alert, awake, oriented to person, oriented to place, oriented to time, oriented to situation, CN II-XII grossly intact. ABSENT: motor sensory deficit Psychiatric exam: PRESENT: appropriate affect, normal mood. ABSENT: homicidal ideation, suicidal ideation Results Laboratory Results: 01/10/19 04:37 01/10/19 04:37 01/10/19 01/10/19 04:37 04:37 WBC 5.3 RBC 3.24 L Hgb 9.9 L Hct 29.4 L MCV 91 MCH 30.6 MCHC 33.8 RDW 15.2 H Plt Count 179 Sodium 137.6 Potassium 3.8 Chloride 89 L Carbon Dioxide 40 H* Anion Gap 9 BUN 12 Creatinine 0.57 Est GFR ( Amer) > 60 Est GFR (Non-Af Amer) > 60 Glucose 93 Calcium 9.4 Total Bilirubin 0.4 AST 10 L ALT 14 Alkaline Phosphatase 72 Total Protein 5.7 L Albumin 3.3 L 01/06/19 01/06/19 01/06/19 12:14 12:14 14:40 Creatine Kinase < 20 L CK-MB (CK-2) 0.65 Troponin I 0.060 0.055 NT-Pro-B Natriuret Pep 7070 H 01/07/19 01/08/19 01/09/19 05:15 04:46 04:11 Creatine Kinase CK-MB (CK-2) Troponin I NT-Pro-B Natriuret Pep 3300 H 1010 H 620 Impressions: Chest X-Ray 01/06/19 12:25 IMPRESSION: Asymmetric edema or pneumonia. Clinical correlation is needed. There is a background of COPD. Assessment and Plan - Diagnosis (1) Acute and chronic respiratory failure with hypercapnia Is this a current diagnosis for this admission?: Yes Plan: -Home oxygen 3 L at rest, 4 L during activity via nasal cannula -Continue to wean from BiPAP as possible -Seems to be related to heart failure. - 01/09 on 5L -Acidosis seems to have much improved. Bicarb on this morning's labs was down from 41-27 01/10/2019-patient is comfortably in the bed communicating well. Pulse ox is 100% on 4 L. Denies any complaints. Bicarb in the chemistry is 40. Acute on chronic respiratory failure with hypercapnia most likely secondary to underlying COPD exacerbation and congestive heart failure. Managed to repeat the chest x- ray today. Continue the other management. (2) Acute diastolic heart failure Is this a current diagnosis for this admission?: Yes Plan: As noted above, she has a history of elevated right ventricular systolic pressures consistent with pulmonary hypertension, as well as a history of grade 2 diastolic dysfunction. That was 2 years ago so will repeat an echocardiogram, I am going to give her a dose of Lasix to see how she responds. -Echocardiogram results showed diastolic failure. Normal LVEF. Diastolic dysfunction is grade 2-4. For full report see business editor report. -IV Lasix times 40 mg given for 1 day, followed by IV Lasix 20 mg daily x2. The aforementioned doses worked well in regards to her respiratory status however they caused her creatinine to raise to 2.50. -Seems to need Lasix most likely every other day on discharge. She also seems to have good enough insight into her condition to know when to take it as needed. -She plans to follow with her 's business editor on discharge. 01/10/2019-patient has history of diastolic heart failure admitted for acute on chronic diastolic heart failure. Left ventricular ejection fraction is normal. She is off the diuretics because of the acute kidney injury during the hospital stay. Test BNP 620. Patient was going to be placed on fluid restriction. Present creatinine is 0.55. Started on Lasix 20 mg p.o. twice daily. (3) Community acquired pneumonia Qualifiers: Laterality: right Lung location: lower lobe of lung Qualified Code(s): J18.1 - Lobar pneumonia, unspecified organism Is this a current diagnosis for this admission?: Yes Plan: Treatment was started for this, and because her heart failure scoring is intermediate, we will give her some Levaquin in case it turns out that diastolic heart failure is not the cause for her current symptoms, but at this time without further information, I think it more likely this is from diastolic heart failure. Blood cultures have been drawn and are pending.-Leukocytosis is resolved. Is not a confirmed diagnosis at this point. Continue Levaquin coverage due to her significantly diminished lungs. Leukocytosis is resolved. Is not a confirmed diagnosis at this point. Continue Levaquin coverage due to her significantly diminished lungs. -Systolic blood pressure runs in the 90s. Diastolic blood pressure runs in the 50s. This appears to be her normal. Given that her sodium is just slightly below normal, we will give judicious fluids per cardiology recommendations. -01/10/2019 patient's WBC count today is 5.3. Leukocytosis is resolved. Patient blood pressure today 119/65 today. Stable. And is to continue levofloxacin 750 mg p.o. daily for at least another day or 2. (4) JUAN ALBERTO (acute kidney injury) Is this a current diagnosis for this admission?: Yes Plan: 01/10/2019-patient creatinine was 2.5 yesterday improved 2.57 today. Acute kidney injury most likely secondary to diuretic use. Plan to start her on a small dose of Lasix 20 mg p.o. twice a day today and recheck the labs tomorrow. (5) Right atrial mass Is this a current diagnosis for this admission?: Yes Plan: 01/10/2019-patient found to have right atrial mass. This incidental finding on echocardiogram. Patient need to follow-up with business editor as an outpatient to make arrangements for SOCRATES. - Time Time Spent with patient: 15-24 minutes Medications reviewed and adjusted accordingly: Yes Anticipated discharge: Home
[2019-01-10] MEDS: ACETAMINOPHEN 325 MG TABLET PO PRN ×3 (12:00→23:27)
--- NOTE | 2019-01-10 13:37 | RADIOLOGY REPORT (SQ) ---
EXAM DESCRIPTION: CHEST 2 VIEWS COMPLETED DATE/TIME: 01/10/2019 1:27 pm REASON FOR STUDY: copd COMPARISON: 01/06/2019 EXAM PARAMETERS: NUMBER OF VIEWS: two views TECHNIQUE: Digital Frontal and Lateral radiographic views of the chest acquired. RADIATION DOSE: NA LIMITATIONS: none FINDINGS: LUNGS AND PLEURA: There is ill-defined opacification in the right upper lobe and in the le ft lower lobe. Lungs are hyperexpanded. MEDIASTINUM AND HILAR STRUCTURES: No masses or contour abnormalities. HEART AND VASCULAR STRUCTURES: Heart normal size. No evidence for failure. BONES: No acute findings. HARDWARE: None in the chest. OTHER: No other significant finding. IMPRESSION: Multicentric pneumonia. Chronic lung changes. TECHNICAL DOCUMENTATION: JOB ID: [id number] [employer]- All Rights Reserved Reading location - IP/workstation name: [email or web address]
[2019-01-10] MEDS: FUROSEMIDE 20 MG TABLET PO SCH (17:36)
[2019-01-10] MEDS: CETIRIZINE 5 MG TABLET PO SCH (17:36)
[2019-01-10] MEDS: ROPINIROLE HCL 1 MG TABLET PO SCH (23:27)
[2019-01-10] MEDS: GABAPENTIN 100 MG CAPSULE PO SCH (23:27)
[2019-01-10] MEDS: MONTELUKAST SODIUM 10 MG TABLET PO SCH (23:27)
[2019-01-11] MEDS: IPRATROPIUM/ALBUTEROL 0.5-2.5 MG/3 ML AMPUL NEB PRN ×5 (00:24→21:55)
[2019-01-11] MEDS: ACETAMINOPHEN 325 MG TABLET PO PRN ×3 (06:02→18:39)
[2019-01-11] MEDS: LEVOTHYROXINE SODIUM 0.025 MG TABLET PO SCH (06:02)
[2019-01-11] MEDS: HEPARIN SOD (PORCINE) 5,000 UNIT/ML 1 ML SYRINGE SUBCUT SCH ×3 (06:04→22:27)
[2019-01-11 06:24] LABS: ABSOLUTE EOSINOPHILS # (AUTO) 0.1 10^3/uL (0.0-0.6); ABSOLUTE LYMPHOCYTES (AUTO) 1.2 10^3/uL (0.5-4.7); ABSOLUTE MONOCYTES (AUTO) 0.3 10^3/uL (0.1-1.4); ABSOLUTE NEUT (AUTO) 3.9 10^3/uL (1.7-8.2); BASOPHILS % (AUTO) 0.8 % (0-2); EOSINOPHILS % (AUTO) 1.1 % (0-6); HEMATOCRIT 30.9 % (36.0-47.0); HEMOGLOBIN 10.5 g/dL (12.0-15.5); LYMPHOCYTES % (AUTO) 21.9 % (13-45); MEAN CORPUSCULAR HEMOGLOBIN 30.8 pg (27.0-33.4); MEAN CORPUSCULAR VOLUME 91 fl (80-97); MONOCYTES % (AUTO) 5.8 % (3-13); PLATELET COUNT 183 10^3/uL (150-450); RED BLOOD COUNT 3.41 10^6/uL (3.72-5.28); RED CELL DISTRIBUTION WIDTH 15.5 % (11.5-14.0); SEGMENTED NEUTROPHILS % (AUTO) 70.4 % (42-78); TOTAL CELLS COUNTED % (AUTO) 100 %; WHITE BLOOD COUNT 5.6 10^3/uL (4.0-10.5)
[2019-01-11 06:52] LABS: ALANINE AMINOTRANSFERASE 14 U/L (9-52); ALBUMIN 3.7 g/dL (3.5-5.0); ALKALINE PHOSPHATASE 72 U/L (38-126); ASPARTATE AMINO TRANSFERASE 18 U/L (14-36); BILIRUBIN,DIRECT 0.3 mg/dL (0.0-0.4); BILIRUBIN,TOTAL 0.3 mg/dL (0.2-1.3); BLOOD UREA NITROGEN 13 mg/dL (7-20); CALCIUM 9.3 mg/dL (8.4-10.2); CHLORIDE 89 mmol/L (98-107); GLUCOSE 99 mg/dL (75-110); POTASSIUM 3.5 mmol/L (3.6-5.0); SODIUM 139.2 mmol/L (137-145); TOTAL PROTEIN 6.3 g/dL (6.3-8.2)
[2019-01-11 06:59] LABS: ANION GAP 12 (5-19); CARBON DIOXIDE 38 mmol/L (22-30)
[2019-01-11] MEDS: PANTOPRAZOLE SODIUM 40 MG TABLET.DR PO SCH (07:45)
[2019-01-11 09:05] LABS: CREATINE KINASE MB 0.3 ng/mL (<4.55); TROPONIN I 0.013 ng/mL
--- NOTE | 2019-01-11 09:49 | EKG REPORT ---
SEVERITY:- NORMAL ECG - SINUS RHYTHM : Confirmed by: Shana Greene MD 11-Jan-2019 09:48:31
[2019-01-11] MEDS: ROFLUMILAST 500 MCG TABLET PO SCH (10:09)
[2019-01-11] MEDS: PREDNISONE 10 MG TABLET PO SCH (10:09)
[2019-01-11] MEDS: LEVOFLOXACIN 750 MG TABLET PO SCH (10:09)
[2019-01-11] MEDS: FUROSEMIDE 20 MG TABLET PO SCH (10:09)
[2019-01-11] MEDS: ATENOLOL 50 MG TABLET PO SCH (10:09)
[2019-01-11] MEDS: FLUTICASONE/VILANTEROL 200-25 MCG/DOSE IH SCH (10:11)
[2019-01-11] MEDS: TIOTROPIUM BROMIDE DPI 5 CAP/KIT (18 MCG/CAP) IH SCH (10:11)
[2019-01-11 10:33] LABS: CREATINE KINASE MB 0.34 ng/mL (<4.55); TROPONIN I 0.013 ng/mL
[2019-01-11] MEDS ORDERED: POTASSIUM CHLORIDE 10 MEQ CAPSULE.ER PO ONE (11:00)
--- NOTE | 2019-01-11 17:27 | PDOC PROGRESS REPORT ---
Subjective Progress Note for:: 01/11/19 Subjective:: This is a 58 yr old female with a PMH of oxygen dependent COPD, hypertension, and diastolic HF who initially presented with increasing SOB. She was admitted for COPD exacerbation and possible pneumonia and diastolic CHF exacerbation. She was started on antibiotics, steroids and Lasix. No acute event overnight. This morning, she is saturating well on nasal cannula. She says her SOB continue to improve but she is not at her baseline yet. Reason For Visit: ACUTE ON CHRONIC RESPIRATORY FAILURE Physical Exam Vital Signs: Temp Pulse Resp BP Pulse Ox 97.3 F 93 18 110/61 98 01/11/19 14:54 01/11/19 14:54 01/11/19 14:54 01/11/19 14:54 01/11/19 14:54 Intake & Output 01/10/19 01/11/19 01/12/19 06:59 06:59 06:59 Intake Total 1217 1435 592 Balance 1217 1435 592 Weight 141 lb 1.533 oz 141 lb 5.061 oz General appearance: PRESENT: no acute distress, well-developed, well-nourished Head exam: PRESENT: atraumatic, normocephalic Eye exam: PRESENT: conjunctiva pink, EOMI, PERRLA. ABSENT: scleral icterus Ear exam: PRESENT: normal external ear exam Mouth exam: PRESENT: moist, tongue midline Neck exam: ABSENT: carotid bruit, JVD, lymphadenopathy, thyromegaly Respiratory exam: PRESENT: rhonchi, wheezes. ABSENT: rales Cardiovascular exam: PRESENT: RRR. ABSENT: diastolic murmur, rubs, systolic murmur Pulses: PRESENT: normal dorsalis pedis pul GI/Abdominal exam: PRESENT: normal bowel sounds, soft. ABSENT: distended, guarding, mass, organolmegaly, rebound, tenderness Rectal exam: PRESENT: deferred Neurological exam: PRESENT: alert, awake, oriented to person, oriented to place, oriented to time, oriented to situation, CN II-XII grossly intact. ABSENT: motor sensory deficit Results Laboratory Results: 01/11/19 05:25 01/11/19 05:25 01/11/19 01/11/19 05:25 05:25 WBC 5.6 RBC 3.41 L Hgb 10.5 L Hct 30.9 L MCV 91 MCH 30.8 MCHC 34.0 RDW 15.5 H Plt Count 183 Seg Neutrophils % 70.4 Lymphocytes % 21.9 Monocytes % 5.8 Eosinophils % 1.1 Basophils % 0.8 Absolute Neutrophils 3.9 Absolute Lymphocytes 1.2 Absolute Monocytes 0.3 Absolute Eosinophils 0.1 Absolute Basophils 0.0 Sodium 139.2 Potassium 3.5 L Chloride 89 L Carbon Dioxide 38 H Anion Gap 12 BUN 13 Creatinine 0.63 Est GFR ( Amer) > 60 Est GFR (Non-Af Amer) > 60 Glucose 99 Calcium 9.3 Magnesium 2.1 Total Bilirubin 0.3 AST 18 ALT 14 Alkaline Phosphatase 72 Total Protein 6.3 Albumin 3.7 01/06/19 14:23 Blood Blood Culture - Final NO GROWTH IN 5 DAYS 01/06/19 12:14 Blood Blood Culture - Final NO GROWTH IN 5 DAYS 01/06/19 01/06/19 01/06/19 12:14 12:14 14:40 Creatine Kinase < 20 L CK-MB (CK-2) 0.65 Troponin I 0.060 0.055 NT-Pro-B Natriuret Pep 7070 H 01/07/19 01/08/19 01/09/19 05:15 04:46 04:11 Creatine Kinase CK-MB (CK-2) Troponin I NT-Pro-B Natriuret Pep 3300 H 1010 H 620 01/11/19 01/11/19 01/11/19 05:25 05:25 05:25 Creatine Kinase < 20 L CK-MB (CK-2) 0.30 Troponin I 0.013 NT-Pro-B Natriuret Pep 497 01/11/19 01/11/19 09:54 09:54 Creatine Kinase < 20 L CK-MB (CK-2) 0.34 Troponin I 0.013 NT-Pro-B Natriuret Pep Impressions: Chest X-Ray 01/10/19 00:00 IMPRESSION: Multicentric pneumonia. Chronic lung changes. Assessment and Plan - Diagnosis (1) Acute on chronic respiratory failure with hypoxia and hypercapnia Is this a current diagnosis for this admission?: Yes Plan: Multifactorial from COPD exacerbation, pneumonia and possible diastolic HF exacerbation. (2) COPD exacerbation Is this a current diagnosis for this admission?: Yes Plan: Improving. Increase prednisone to 20 mg bid. Continue breathing treatments. (3) Pneumonia Qualifiers: Pneumonia type: due to unspecified organism Laterality: bilateral Is this a current diagnosis for this admission?: Yes Plan: Continue Levaquin. (4) Diastolic heart failure Qualifiers: Heart failure chronicity: unspecified Qualified Code(s): I50.30 - Unspecified diastolic (congestive) heart failure Is this a current diagnosis for this admission?: Yes Plan: Decrease Lasix to 20 mg daily. - Time Time Spent with patient: 25-34 minutes
[2019-01-11] MEDS: PREDNISONE 20 MG TABLET PO SCH (18:32)
[2019-01-11] MEDS: CETIRIZINE 5 MG TABLET PO SCH (18:32)
[2019-01-11] MEDS: GABAPENTIN 100 MG CAPSULE PO SCH (22:27)
[2019-01-11] MEDS: ROPINIROLE HCL 1 MG TABLET PO SCH (22:27)
[2019-01-11] MEDS: MONTELUKAST SODIUM 10 MG TABLET PO SCH (22:27)
[2019-01-12] MEDS: ACETAMINOPHEN 325 MG TABLET PO PRN (03:25)
[2019-01-12] MEDS: LEVOTHYROXINE SODIUM 0.025 MG TABLET PO SCH (06:48)
[2019-01-12] MEDS: HEPARIN SOD (PORCINE) 5,000 UNIT/ML 1 ML SYRINGE SUBCUT SCH (06:48)
[2019-01-12] MEDS: IPRATROPIUM/ALBUTEROL 0.5-2.5 MG/3 ML AMPUL NEB PRN ×2 (08:23→12:05)
[2019-01-12] MEDS: PANTOPRAZOLE SODIUM 40 MG TABLET.DR PO SCH (08:26)
[2019-01-12] MEDS: LEVOFLOXACIN 750 MG TABLET PO SCH (09:59)
[2019-01-12] MEDS: PREDNISONE 20 MG TABLET PO SCH (10:00)
[2019-01-12] MEDS ORDERED: FUROSEMIDE 20 MG TABLET PO SCH (10:00)
[2019-01-12] MEDS: ATENOLOL 50 MG TABLET PO SCH (10:00)
[2019-01-12] MEDS: ROFLUMILAST 500 MCG TABLET PO SCH (10:00)
[2019-01-12] MEDS: FLUTICASONE/VILANTEROL 200-25 MCG/DOSE IH SCH (10:02)
[2019-01-12] MEDS: TIOTROPIUM BROMIDE DPI 5 CAP/KIT (18 MCG/CAP) IH SCH (11:20)
[2019-01-12 13:12] VITALS: BP 97/65
--- NOTE | 2019-01-13 21:30 | PDOC DISCHARGE SUMMARY ---
General - Admit/Disc Date/PCP Admission Date/Primary Care Provider: 01/06/19 15:17 SUDARSHAN HAYS MD Discharge Date: 01/12/19 - Discharge Diagnosis (1) Acute on chronic respiratory failure with hypoxia and hypercapnia Is this a current diagnosis for this admission?: Yes (2) COPD exacerbation Is this a current diagnosis for this admission?: Yes (3) Pneumonia Is this a current diagnosis for this admission?: Yes (4) Diastolic heart failure Is this a current diagnosis for this admission?: Yes - Additional Information Resuscitation Status: Full Code Discharge Diet: Cardiac Discharge Activity: Activity As Tolerated, Balance Activity w/Rest, Weigh Daily Prescriptions: Budesonide/Formoterol Fumarate [Symbicort HFA 160-4.5 mcg Inhaler 6 gm] 2 puff IH Q12 1 Days #1 inhaler Levofloxacin [Levaquin 750 mg Tablet] 750 mg PO DAILY 5 Days #5 tablet Prednisone [Deltasone 20 mg Tablet] 20 mg PO BID 5 Days #10 tablet Tiotropium [place] [Spiriva Respimat] 2 puff IH DAILY #2 mist.inhal Home Medications: Bisoprolol Fumarate [Zebeta 5 mg Tablet] 2.5 mg PO DAILY 01/06/19 Gabapentin [Neurontin 100 mg Capsule] 100 mg PO QHS 01/06/19 Ibuprofen [Motrin 800 mg Tablet] 500 mg PO Q6HP PRN 01/06/19 Ipratropium/Albuterol Sulfate [Duoneb 3 ml Ampul] 1 vial NEB Q4HP PRN 01/06/19 Levocetirizine Dihydrochloride [Xyzal] 5 mg PO QPM 01/06/19 Levothyroxine Sodium [Synthroid 0.025 mg Tablet] 0.025 mg PO Q6AM 01/06/19 Montelukast Sodium [Singulair 10 mg Tablet] 10 mg PO DAILY 01/06/19 Omeprazole 40 mg PO QAM 01/06/19 Ondansetron HCl [Zofran 4 mg Tablet] 4 mg PO DAILYP PRN 01/06/19 Roflumilast [Daliresp 500 mcg Tablet] 500 mcg PO DAILY 01/06/19 Ropinirole HCl [Requip] 1 mg PO QHS 01/06/19 Budesonide/Formoterol Fumarate [Symbicort HFA 160-4.5 mcg Inhaler 6 gm] 2 puff IH Q12 1 Days #1 inhaler 01/12/19 Levofloxacin [Levaquin 750 mg Tablet] 750 mg PO DAILY 5 Days #5 tablet 01/12/19 Prednisone [Deltasone 20 mg Tablet] 20 mg PO BID 5 Days #10 tablet 01/12/19 Tiotropium [place] [Spiriva Respimat] 2 puff IH DAILY #2 mist.inhal 01/12/19 History of Present Illness History of Present Illness: Admitting hospitalist's H&P: AUDIE KIMBLE is a 58 year old female with a history of oxygen dependent COPD who presents with a chief complaint of worsening dyspnea with exertion over the past couple of weeks. She has had no fever no productive cough. She is also complained of orthopnea. She went to her doctor's office yesterday and was put on an antibiotic. Her symptoms of actually gotten worse and so she came here. She was hypoxic on her usual 5 L per nasal cannula and was started on BiPAP. Her breathing got more comfortable on BiPAP. She had a leukocytosis but she is on prednisone chronically. Hospital Course Hospital Course: This is a 58 yr old female with a PMH of oxygen dependent COPD, hypertension, and diastolic HF who initially presented with increasing SOB. She was admitted for COPD exacerbation and possible pneumonia and diastolic CHF exacerbation. She was started on antibiotics, steroids and Lasix. She did significantly improve and returned to her baseline. She was discharged on 5 more days of prednisone, Levaquin, Symbicort and Spiriva. Physical Exam Vital Signs: Temp Pulse Resp BP Pulse Ox 97.4 F 75 22 H 97/65 L 96 01/12/19 13:11 01/12/19 13:11 01/12/19 13:11 01/12/19 13:11 01/12/19 13:11 Intake & Output 01/11/19 01/12/19 01/13/19 06:59 06:59 06:59 Intake Total 1435 1764 Balance 1435 1764 Weight 141 lb 5.061 oz 144 lb 6.444 oz General appearance: PRESENT: no acute distress, well-developed, well-nourished Head exam: PRESENT: atraumatic, normocephalic Eye exam: PRESENT: conjunctiva pink, EOMI, PERRLA. ABSENT: scleral icterus Ear exam: PRESENT: normal external ear exam Mouth exam: PRESENT: moist, tongue midline Neck exam: ABSENT: carotid bruit, JVD, lymphadenopathy, thyromegaly Respiratory exam: PRESENT: wheezes - minimal wheezes. ABSENT: rales, rhonchi Cardiovascular exam: PRESENT: RRR. ABSENT: diastolic murmur, rubs, systolic murmur Pulses: PRESENT: normal dorsalis pedis pul GI/Abdominal exam: PRESENT: normal bowel sounds, soft. ABSENT: distended, guarding, mass, organolmegaly, rebound, tenderness Rectal exam: PRESENT: deferred Neurological exam: PRESENT: alert, awake, oriented to person, oriented to place, oriented to time, oriented to situation, CN II-XII grossly intact. ABSENT: motor sensory deficit Results Laboratory Results: 01/11/19 05:25 01/11/19 05:25 01/06/19 14:23 Blood Blood Culture - Final NO GROWTH IN 5 DAYS 01/06/19 01/06/19 01/06/19 12:14 12:14 14:40 Creatine Kinase < 20 L CK-MB (CK-2) 0.65 Troponin I 0.060 0.055 NT-Pro-B Natriuret Pep 7070 H 01/07/19 01/08/19 01/09/19 05:15 04:46 04:11 Creatine Kinase CK-MB (CK-2) Troponin I NT-Pro-B Natriuret Pep 3300 H 1010 H 620 01/11/19 01/11/19 01/11/19 05:25 05:25 05:25 Creatine Kinase < 20 L CK-MB (CK-2) 0.30 Troponin I 0.013 NT-Pro-B Natriuret Pep 497 01/11/19 01/11/19 09:54 09:54 Creatine Kinase < 20 L CK-MB (CK-2) 0.34 Troponin I 0.013 NT-Pro-B Natriuret Pep Impressions: Chest X-Ray 01/10/19 00:00 IMPRESSION: Multicentric pneumonia. Chronic lung changes. Qualifiers - * PATIENT BEING DISCHARGED WITH ANY OF THE FOLLOWING DIAGNOSIS: No
== END 2019-01-12 13:30 | disposition home health service (06) | DRG 189 ==
LOC: ER 11:55 → EH 15:17 → 3W 20:30
PROVIDERS: ADMIT Family Medicine; ATTEND Internal Medicine
DX: J96.22 Acute and chronic respiratory failure with hypercapnia (principal); J18.1 Lobar pneumonia, unspecified organism; I50.33 Acute on chronic diastolic (congestive) heart failure; J44.1 Chronic obstructive pulmonary disease with (acute) exacerbation; I50.32 Chronic diastolic (congestive) heart failure; N17.9 Acute kidney failure, unspecified; J96.21 Acute and chronic respiratory failure with hypoxia; E88.01 Alpha-1-antitrypsin deficiency; I51.89 Other ill-defined heart diseases; I27.20 Pulmonary hypertension, unspecified; Z99.81 Dependence on supplemental oxygen; Z79.52 Long term (current) use of systemic steroids
CPT/HCPCS: 36415; 71045; 71046; 80048; 80053; 82550; 82553; 82803; 83735; 83880; 84484; 85025; 85027; 87040; 93005; 93010; 93306; 94640; 94660; 96365; 96375; 99285; J0692; J1644; J1940; J1956; J2270; J2405; J3370; J3490; J7512; J7620; S0028

== ENCOUNTER → 2019-01-20 | Outpatient (CLI) | payer MEDICARE ==
--- NOTE | 2019-01-20 09:50 | ST Modified Barium Swallow ---
Recommendation - Recommendations Recommendations: Recommend patient use caution with specific foods, especially those with crumbly textures. May wish to follow up with ENT or GI due to presence of Zenker's diverticulum. Medical Diagnoses - Medical Diagnoses Medical Diagnosis Description & ICD-10 Code(s): R13.12, dypshagia Other Medical Diagnoses/Co-Morbidities: per patient report: reflux, COPD, hypertension, CHF, history of pneumothorax, recurrent pneumonia. ST Modified Barium Swallow - General Date: 01/20/19 Referring Physician: Dr. Petar Tuttle Date of Onset: 01/17/18 - approximate onset date Reason for Referral: difficulty swallowing, recurrent pneumonia - History History obtained from: Patient -: Medical - per patient report-Ms. Cedillo acted as her own historian, arrived with nasal canula and 4 liters of home oxygen. Patient states that she has noticed some increased difficulty swallowing for approximately 1 year. She states that certain foods, such as hamburgers or shredded lettuce, feel stuck in her throat. She does also report recurrent pneumonia. Medications: Patient provided medication list: bromide, albuterol, paliresp, prednisone, bisoprolol, omeprazole, gabapentin, symbicort, spiriva, ondanseton, levothyroxie, ropinirole, home O2 Allergies: per patient report: sulfa drugs, other allergies documented in EMR. - Functional Status Prior Functional Status: INDEPENDENT: feeding Current Functional Limitations: feeding - globus - Subjective Patient/caregiver goal(s): safe swallow, r/o struct. abnormality Cognitive-Linguistic Function: Functional Speech Intelligibility: WNL Current Nutritional Means: PO Current PO diet: Regular Current symptoms: Pneumonia, c/o Globus sensation Pain: Patient reports, 3/5 - back pain, chronic - Objective Assessment: Upright, Left Lateral - Food Trials Used Food trials used: Thin liquids, Pureed, Regular The patient: Was Able to Self Feed - Oral-Motor Skills Dentition: Partial Velo-pharyngeal function: Unremarkable - Assessment Oral prep: Normal Labial closure: Adequate Leakage: None Mastication: Adequate Lingual Movement: Normal Oral stage: Normal for this Procedure - Pharyngeal Stage Initiation of Pharyngeal Stage Reflex: Normal Decreased laryngeal elevation: No Reduced Velopharyngeal Closure: no Reduced pressure generation: No Pre-swallow pooling in valleculae: None Pre-Swallow pooling in pyriforms: None Reduced Thyro-Hyoid approximation: No Reduced epiglottic excursion: No Reduced pharyngeal peristalsis/contraction: No Post-swallow residulas vallecular: None Post-Swallow residuals in pyriforms: None - Esophageal Stage Esophageal Stage: presence of Zenker's diverticulum noted, some collection of soft solids seen. - Fall Risk Assessment Medications/Conditions that increase fall risks include: Antidepressants, sedatives, anti-arrhythmic, diuretic, benzodiazipenes, neuroleptics. BP regulation problems, cardiac problems, balance or gait deficits, neurological problems. Fall Risk Actions Taken: No action needed - Behavioral Observations During evaluation process patient: was pleasant, was cooperative, able to answer questions, provided medical history Mental Status: Alert & Oriented X3 - Treatment / Educational Needs: Treatment/Education Needs: Treatment consisted of patient education on the role of the Speech Pathologist. Patient's plan of care and golas were communicated as well as scheduling and attendance policies. Recommendations for initial home program were shared. Patient demonstrated understanding and verbalized agreement. - Impression/Summary Laryngeal Penetration: No Tracheal Aspiration: no Patient presents with: Normal swallow at eval Risk of Aspiration: Minimal Evaluation and Findings: Normal swallow function seen. Presence of Zenker's diverticulum noted in upper esophagus, some residue of solids in diverticulum. - Recommendations Solid diet recommendations: Regular Liquid Diet Modification: Thin Dysphagia therapy with ACQUISITION ADVISOR: no Recommended techniques: Fully Upright During Meal, Small Bites and Sips, Alternate Bites/Sips Information, Precautions and Recommendations: Patient (Written), Patient (Verbal) - Time Total Time: 30 - Plan of Care Strategies to optimize patient understanding include:: ongoing assessment of educational needs, implementation of educational strategies, and re-education. - - -: Thank you for the opportunity to work with this patient and his/her family. Should you have any questions about this patient's plan or progress, I can be reached at [phone].
--- NOTE | 2019-01-20 09:58 | RADIOLOGY REPORT (SQ) ---
EXAM DESCRIPTION: COOKIE SWALLOW COMPLETED DATE/TIME: 01/20/2019 9:18 am REASON FOR STUDY: DYSPHAGIA (R13.12) R13.12 DYSPHAGIA, OROPHARYNGEAL PHASE globus sensation COMPARISON: 12/04/2014 modified barium swallow TECHNIQUE: Videofluoroscopic swallowing examination was performed in conjunction with speech patholo gy. Videofluoroscopic imaging was obtained and reviewed and these are the findings: RADIATION DOSE: 1.3 minutes of fluoroscopy was used. 1 images saved to PACS. LIMITATIONS: None FINDINGS: The patient was brought into the fluoro room and placed upright on a modified barium swall ow chair. The patient was then given multiple consistencies mixed with barium to swallow under live fluoroscopic video guidance. According to the Speech Pathologist there was no penetration or aspirat ion. Moderate cricopharyngeal hypertrophy with small Zenker's diverticulum. IMPRESSION: NO EVIDENCE OF PENETRATION OR ASPIRATION. PLEASE SEE SPEECH PATHOLOGIST REPORT FOR OTHER FINDINGS AND RECOMMENDATIONS. COMMENT: Quality ID [id number]: Final reports for procedures using fluoroscopy that document radiation exp osure indices, or exposure time and number of fluorographic images (if radiation exposure indices are not available) TECHNICAL DOCUMENTATION: JOB ID: [id number] [employer]- All Rights Reserved Reading location - IP/workstation name: [email or web address] [id number]
== END ==
LOC: RAD 08:10
PROVIDERS: ATTEND Internal Medicine
DX: K22.5 Diverticulum of esophagus, acquired (principal); R13.12 Dysphagia, oropharyngeal phase; K21.9 Gastro-esophageal reflux disease without esophagitis
CPT/HCPCS: 74230

== ENCOUNTER 2019-03-16 20:29 | Inpatient (IN) | payer MEDICARE ==
[2019-03-16] MEDS ORDERED: IPRATROPIUM/ALBUTEROL 0.5-2.5 MG/3 ML AMPUL NEB ONE ×2 (20:39→20:42)
[2019-03-16] MEDS ORDERED: METHYLPREDNISOLONE INJ 125 MG/2 ML SDV ONE (20:40)
[2019-03-16] MEDS ORDERED: METHYLPREDNISOLONE INJ 125 MG/2 ML SDV IV ONE (20:42)
[2019-03-16] MEDS: ALBUTEROL SULFATE 0.083% NEB 2.5 MG/3 ML AMPUL NEB SCH ×3 (20:47→22:01)
[2019-03-16] MEDS ORDERED: FUROSEMIDE INJ/PF 20 MG/2 ML SDV IV ONE (20:53)
--- NOTE | 2019-03-16 21:04 | ER Document Report ---
ED General - General Chief Complaint: Shortness Of Breath Stated Complaint: DIFFICULTY BREATHING Time Seen by Provider: 03/16/19 20:53 Mode of Arrival: Medic Information source: Patient, Relative, Emergency Med Personnel Notes: 58-year-old female with COPD on continuous oxygen (4 L), congestive heart failure, history of respiratory failure presents in respiratory distress via EMS from home. Patient reports that she became acutely dyspneic just prior to arrival. She reports the recent diagnosis of pneumonia for which she was treated with azithromycin and 5 days of prednisone. She states that she completed this course on Thursday2018. Patient does report a productive cough but denies fever, chest pain, abdominal pain. Patient does take Lasix 20 mg p.o. every other day. She denies history of PE, DVT. She denies current tobacco use. She is exposed to secondary hand smoke from her who continues to smoke in the house. EMS reported a O2 saturation of 40% upon their arrival. TRAVEL OUTSIDE OF THE [place] IN LAST 30 DAYS: Yes - HPI Onset: Just prior to arrival Onset/Duration: Sudden Quality of pain: Other - Chest tightness Severity: Severe Associated symptoms: Productive cough, Shortness of breath. denies: Fever, Headache, Nausea, Vomiting Exacerbated by: Coughing, Deep breathing Relieved by: Denies Similar symptoms previously: Yes Recently seen / treated by doctor: Yes - Related Data Allergies/Adverse Reactions: doxepin [Doxepin] Allergy (Verified 09/30/18 16:24) Shortness of Breath, Swelling etodolac [Etodolac] Allergy (Verified 09/30/18 16:24) loratadine [Loratadine] Allergy (Verified 09/30/18 16:24) Shortness of Breath, Swelling meloxicam [Meloxicam] Allergy (Verified 09/30/18 16:24) Sulfa (Sulfonamide Antibiotics) Allergy (Verified 09/30/18 16:24) Shortness of Breath, Swelling Past Medical History - Social History Smoking Status: Former Smoker Frequency of alcohol use: None Drug Abuse: None Family History: Hyperlipidemia, Hypertension Patient has suicidal ideation: No Patient has homicidal ideation: No - Past Medical History Cardiac Medical History: Reports: Hx Congestive Heart Failure - Diastolic Denies: Hx Atrial Fibrillation, Hx DVT, Hx Heart Attack, Hx Hypercholesterolemia, Hx Hypertension, Hx Pulmonary Embolism Pulmonary Medical History: Reports: Hx Asthma, Hx Bronchitis, Hx COPD - home O2 & BIPAP-dependent, Hx Pneumonia, Hx Intubation - Now DNR/DNI, Hx Respiratory Failure - Chronic Neurological Medical History: Reports: Hx Migraine. Denies: Hx Seizures Endocrine Medical History: Denies: Hx Diabetes Mellitus Type 1, Hx Diabetes Mellitus Type 2, Hx Hyperthyroidism, Hx Hypothyroidism Renal/ Medical History: Denies: Hx End Stage Renal Disease, Hx Peritoneal Dialysis GI Medical History: Reports: Hx Gastroesophageal Reflux Disease. Denies: Hx Cirrhosis, Hx Crohn's Disease, Hx Hepatitis, Hx Ulcerative Colitis Musculoskeletal Medical History: Reports Hx Arthritis, Denies Hx Gout, Reports Hx Muscle Weakness Skin Medical History: Denies Hx Eczema, Denies Hx Psoriasis Psychiatric Medical History: Denies: Hx Bipolar Disorder, Hx Depression Traumatic Medical History: Reports: Hx Pneumothorax - x4 R lung, 2010 when the patient had a right lung bx required a chest tube. Denies: Hx Gunshot Wound Infectious Medical History: Denies: Hx Hepatitis Past Surgical History: Reports: Hx Gynecologic Surgery, Hx Hysterectomy, Hx Tonsillectomy, Hx Tubal Ligation, Other - Lung biopsy - Immunizations Hx Diphtheria, Pertussis, Tetanus Vaccination: No Hx Pneumococcal Vaccination: 07/19/18 Physical Exam - Vital signs Vitals: Pulse Ox 90 L 03/16/19 20:34 Course - Re-evaluation Re-evalutation: 03/17/19 03:36 Laboratory 03/16/19 03/16/19 03/16/19 20:45 20:45 20:45 WBC 18.5 H RBC 4.08 Hgb 11.8 L Hct 36.9 MCV 90 MCH 28.9 MCHC 32.0 RDW 17.0 H Plt Count 175 Total Counted 100 Seg Neutrophils % Not Reportable Seg Neuts % (Manual) 92 H Lymphocytes % Not Reportable Lymphocytes % (Manual) 5 L Monocytes % Not Reportable Monocytes % (Manual) 3 Eosinophils % Not Reportable Eosinophils % (Manual) 0 Basophils % Not Reportable Basophils % (Manual) 0 Absolute Neutrophils Not Reportable Abs Neuts (Manual) 17.0 H Absolute Lymphocytes Not Reportable Abs Lymphs (Manual) 0.9 Absolute Monocytes Not Reportable Abs Monocytes (Manual) 0.6 Absolute Eosinophils Not Reportable Absolute Eos (Manual) 0.0 Absolute Basophils Not Reportable Abs Basophils (Manual) 0.0 Platelet Comment ADEQUATE Anisocytosis 1+ Carbonic Acid HCO3/H2CO3 Ratio ABG pH ABG pCO2 ABG pO2 ABG HCO3 ABG Total CO2 ABG O2 Saturation ABG Base Excess FiO2 Sodium 141.2 Potassium 4.1 Chloride 94 L Carbon Dioxide 39 H Anion Gap 8 BUN 21 H Creatinine 0.49 L Est GFR ( Amer) > 60 Est GFR (Non-Af Amer) > 60 Glucose 110 Calcium 8.4 Total Bilirubin 0.6 Direct Bilirubin 0.2 Neonat Total Bilirubin Not Reportable Neonat Direct Bilirubin Not Reportable Neonat Indirect Bili Not Reportable AST 20 ALT 20 Alkaline Phosphatase 61 Creatine Kinase 23 L CK-MB (CK-2) Cancelled Troponin I Cancelled NT-Pro-B Natriuret Pep Cancelled Total Protein 6.8 Albumin 4.1 Urine Color Urine Appearance Urine pH Ur Specific [place] Urine Protein Urine Glucose (UA) Urine Ketones Urine Blood Urine Nitrite Urine Bilirubin Urine Urobilinogen Ur Leukocyte Esterase Urine WBC (Auto) Urine RBC (Auto) U Hyaline Cast (Auto) Squamous Epi Cells Auto Urine Mucus (Auto) Urine Ascorbic Acid 03/16/19 03/16/19 03/16/19 20:45 21:01 22:51 WBC RBC Hgb Hct MCV MCH MCHC RDW Plt Count Total Counted Seg Neutrophils % Seg Neuts % (Manual) Lymphocytes % Lymphocytes % (Manual) Monocytes % Monocytes % (Manual) Eosinophils % Eosinophils % (Manual) Basophils % Basophils % (Manual) Absolute Neutrophils Abs Neuts (Manual) Absolute Lymphocytes Abs Lymphs (Manual) Absolute Monocytes Abs Monocytes (Manual) Absolute Eosinophils Absolute Eos (Manual) Absolute Basophils Abs Basophils (Manual) Platelet Comment Anisocytosis Carbonic Acid 2.38 H HCO3/H2CO3 Ratio 17:1 ABG pH 7.35 ABG pCO2 79.1 H* ABG pO2 81.8 ABG HCO3 42.8 H ABG Total CO2 45.2 H ABG O2 Saturation 95.0 ABG Base Excess 13.9 FiO2 40% Sodium Potassium Chloride Carbon Dioxide Anion Gap BUN Creatinine Est GFR ( Amer) Est GFR (Non-Af Amer) Glucose Calcium Total Bilirubin Direct Bilirubin Neonat Total Bilirubin Neonat Direct Bilirubin Neonat Indirect Bili AST ALT Alkaline Phosphatase Creatine Kinase CK-MB (CK-2) 0.56 Troponin I 0.013 NT-Pro-B Natriuret Pep Total Protein Albumin Urine Color STRAW Urine Appearance CLEAR Urine pH 5.0 Ur Specific [place] 1.013 Urine Protein NEGATIVE Urine Glucose (UA) NEGATIVE Urine Ketones NEGATIVE Urine Blood SMALL H Urine Nitrite NEGATIVE Urine Bilirubin NEGATIVE Urine Urobilinogen NEGATIVE Ur Leukocyte Esterase NEGATIVE Urine WBC (Auto) 1 Urine RBC (Auto) 0 U Hyaline Cast (Auto) 3 Squamous Epi Cells Auto 1 Urine Mucus (Auto) RARE Urine Ascorbic Acid NEGATIVE Chest X-Ray 03/16/19 20:42 IMPRESSION: Interval development of alveolar infiltrate in the right lung base concerning for pneumonia Chronic-appearing changes in the right upper lobe and around the right hilum Chest/Abdomen CTA 03/16/19 20:53 IMPRESSION: Negative for pulmonary embolus, thoracic aortic aneurysm, or dissection. Severe emphysematous changes. Bibasilar bronchiectasis and scarring. Consolidative change posterior right lung base TECHNICAL DOCUMENTATION: Quality ID # [id number]: Final reports with documentation of one or more dose reduction techniques (e.g., Automated exposure control, adjustment of the mA and/or kV according to patient size, use of iterative reconstruction technique) copyright 2011 [employer]- All Rights Reserved Temp Pulse Resp BP Pulse Ox 97.6 F 93 20 97/52 L 100 03/17/19 01:39 03/17/19 03:15 03/17/19 01:39 03/17/19 01:41 03/17/19 01:41 03/17/19 03:37 58-year-old female with COPD on continuous oxygen (4 L), congestive heart failure, history of respiratory failure presents in respiratory distress via EMS from home. Patient reports that she became acutely dyspneic just prior to arrival. She reports the recent diagnosis of pneumonia for which she was treated with azithromycin and 5 days of prednisone. She states that she completed this course on Thursday 5 2018. Patient presents in respiratory distress on BiPAP. 03/17/19 18:22 Upon arrival patient was placed on BiPAP, she received multiple rounds of breathing treatments, Solu-Medrol. Bedside ultrasound was performed and did show B-lines consistent with interstitial edema. Patient did have improvement of her tachypnea, hypoxia. ABG did show CO2 retention. Patient admitted to the [facility] by Dr. Olmos - Vital Signs Vital signs: Temp Pulse Resp BP Pulse Ox 97.7 F 99 31 H 91/52 L 92 03/17/19 12:20 03/17/19 15:52 03/17/19 15:52 03/17/19 12:20 03/17/19 15:52 - Laboratory Result Diagrams: 03/17/19 04:56 03/17/19 04:56 Laboratory results interpreted by me: 03/16/19 03/16/19 03/16/19 20:45 20:45 20:45 WBC 18.5 H Hgb 11.8 L RDW 17.0 H Seg Neuts % (Manual) 92 H Lymphocytes % (Manual) 5 L Abs Neuts (Manual) 17.0 H Carbonic Acid 2.38 H ABG pCO2 79.1 H* ABG HCO3 42.8 H ABG Total CO2 45.2 H Chloride 94 L Carbon Dioxide 39 H BUN 21 H Creatinine 0.49 L Creatine Kinase 23 L Urine Blood 03/16/19 22:51 WBC Hgb RDW Seg Neuts % (Manual) Lymphocytes % (Manual) Abs Neuts (Manual) Carbonic Acid ABG pCO2 ABG HCO3 ABG Total CO2 Chloride Carbon Dioxide BUN Creatinine Creatine Kinase Urine Blood SMALL H - Diagnostic Test Radiology reviewed: Image reviewed, Reports reviewed - EKG Interpretation by Me EKG shows normal: Sinus rhythm Rate: Tachycardia Rhythm: NSR When compared to previous EKG there are: No significant change Critical Care Note - Critical Care Note Total time excluding time spent on procedures (mins): 35 - Minutes of critical care time spent in direct contact evaluating and reevaluating the patient, treating symptoms, reviewing labs and studies and speaking with family and consultants excluding any procedures Discharge - Discharge Clinical Impression: Acute and chronic respiratory failure with hypercapnia Condition: Fair Disposition: ADMITTED INPATIENT Admitting Provider: Nickolas (Hospitalist) Unit Admitted: [facility]
[2019-03-16 21:12] LABS: HEMATOCRIT 36.9 % (36.0-47.0); HEMOGLOBIN 11.8 g/dL (12.0-15.5); MEAN CORPUSCULAR HEMOGLOBIN 28.9 pg (27.0-33.4); MEAN CORPUSCULAR VOLUME 90 fl (80-97); PLATELET COUNT 175 10^3/uL (150-450); RED BLOOD COUNT 4.08 10^6/uL (3.72-5.28); WHITE BLOOD COUNT 18.5 10^3/uL (4.0-10.5)
--- NOTE | 2019-03-16 21:29 | RADIOLOGY REPORT (SQ) ---
EXAM DESCRIPTION: XR CHEST 1 VIEW COMPLETED DATE/TME: 03/16/2019 20:42 CLINICAL HISTORY: 58 years Female respiratory distress COMPARISON: 01/10/2019. FINDINGS: Cardiac size appears within normal limits. Lungs are hyperinflated compatible COPD. There are alveolar infiltrates in the right lower lobe new when compared to the previous study concerning for pneumonia. There are some areas of interstitial infiltrate in the right upper lobe versus scarring which appear similar to the prior exam. Small amount of pleural fluid is not excluded. Right hilum appears prominent. This appears similar to the previous study. IMPRESSION: Interval development of alveolar infiltrate in the right lung base concerning for pneumonia Chronic-appearing changes in the right upper lobe and around the right hilum
[2019-03-16 21:30] LABS: ABSOLUTE LYMPHOCYTES# (MANUAL) 0.9 10^3/uL (0.5-4.7); ABSOLUTE MONOCYTES # (MANUAL) 0.6 10^3/uL (0.1-1.4); BASOPHILS % (MANUAL) 0 % (0-2); EOSINOPHILS % (MANUAL) 0 % (0-6); LYMPHOCYTES % (MANUAL) 5 % (13-45); MONOCYTES % (MANUAL) 3 % (3-13); SEGMENTED NEUTROPHILS % (MAN) 92 % (42-78); TOTAL CELLS COUNTED 100
[2019-03-16 21:31] LABS: ANISOCYTOSIS 1+; PLATELET COMMENT ADEQUATE
[2019-03-16 21:44] LABS: CREATINE KINASE MB 0.56 ng/mL (<4.55); TROPONIN I 0.013 ng/mL
[2019-03-16 21:46] LABS: ARTERIAL BLOOD BASE EXCESS 13.9 mmol/L; ARTERIAL BLOOD H2CO3 2.38 mmol/L (1.05-1.35); ARTERIAL BLOOD HCO3 42.8 mmol/L (20-24); ARTERIAL BLOOD PH 7.35 (7.35-7.45); ARTERIAL BLOOD PO2 81.8 mmHg (80-100); ARTERIAL BLOOD TOTAL CO2 45.2 mmol/L (21-25)
[2019-03-16 21:51] LABS: ARTERIAL BLOOD FIO2 40%; ARTERIAL BLOOD PCO2 79.1 mmHg (35-45)
[2019-03-16 22:05] LABS: ALANINE AMINOTRANSFERASE 20 U/L (9-52); ALBUMIN 4.1 g/dL (3.5-5.0); ALKALINE PHOSPHATASE 61 U/L (38-126); ASPARTATE AMINO TRANSFERASE 20 U/L (14-36); BILIRUBIN,DIRECT 0.2 mg/dL (0.0-0.4); BILIRUBIN,TOTAL 0.6 mg/dL (0.2-1.3); BLOOD UREA NITROGEN 21 mg/dL (7-20); CALCIUM 8.4 mg/dL (8.4-10.2); CHLORIDE 94 mmol/L (98-107); CREATINE KINASE 23 U/L (30-135); GLUCOSE 110 mg/dL (75-110); POTASSIUM 4.1 mmol/L (3.6-5.0); SODIUM 141.2 mmol/L (137-145); TOTAL PROTEIN 6.8 g/dL (6.3-8.2)
[2019-03-16 22:11] LABS: ANION GAP 8 (5-19); CARBON DIOXIDE 39 mmol/L (22-30)
--- NOTE | 2019-03-16 22:17 | EKG REPORT ---
SEVERITY:- ABNORMAL ECG - SINUS TACHYCARDIA CONSIDER LEFT VENTRICULAR HYPERTROPHY : Confirmed by: Shana Greene MD 16-Mar-2019 22:16:42
[2019-03-16] MEDS ORDERED: CEFTRIAXONE 1 GM/D5W RTU 1 GM/50 ML RTUPB IV ONE (22:29)
[2019-03-16] MEDS ORDERED: VANCOMYCIN HCL INJ 1000 MG VIAL IV ONE (22:29)
--- NOTE | 2019-03-16 22:57 | RADIOLOGY REPORT (SQ) ---
EXAM DESCRIPTION: CT CHEST ANGIOGRAPHY WITHOUT THEN WITH IV CONTRAST COMPLETED DATE/TME: 03/16/2019 20:53 CLINICAL HISTORY: 58 years, Female, acute dyspnea tachy COMPARISON: None. TECHNIQUE: [id number] Images stored on PACS. All CT scanners at this facility use dose modulation, iterative reconstruction, and/or weight based dosing when appropriate to reduce radiation dose to as low as reasonably achievable (ALARA). Axial images were obtained with coronal and sagittal MIPS [facility]: Dose Right [facility]: CareDose [facility]: Dose Right [facility]: Teradose 4D [facility]: [employer] LIMITATIONS: None. FINDINGS: The mediastinal vasculature enhances normally. No intraluminal filling defect to suggest pulmonary embolus. Negative for thoracic aortic aneurysm or dissection. The heart and pericardium are unremarkable. Limited evaluation of the upper abdomen shows fatty infiltrative change to the liver. Osseous structures are grossly intact. No pneumothorax. Severe emphysematous changes. Areas of bronchiectasis and scarring in the lung bases bilaterally with consolidative changes in the posterior right lung base. IMPRESSION: Negative for pulmonary embolus, thoracic aortic aneurysm, or dissection. Severe emphysematous changes. Bibasilar bronchiectasis and scarring. Consolidative change posterior right lung base TECHNICAL DOCUMENTATION: Quality ID # [id number]: Final reports with documentation of one or more dose reduction techniques (e.g., Automated exposure control, adjustment of the mA and/or kV according to patient size, use of iterative reconstruction technique) copyright 2011 [employer]- All Rights Reserved
[2019-03-16 23:24] LABS: APPEARANCE,URINE CLEAR; BILIRUBIN,URINE NEGATIVE (NEGATIVE); COLOR,URINE STRAW; GLUCOSE, URINE NEGATIVE (NEGATIVE); KETONES,URINE NEGATIVE (NEGATIVE); LEUKOCYTE ESTERASE,URINE NEGATIVE (NEGATIVE); NITRITE,URINE NEGATIVE (NEGATIVE); PROTEIN,URINE NEGATIVE (NEGATIVE); URINE SPECIFIC GRAVITY 1.013; UROBILINOGEN,URINE NEGATIVE mg/dL (<2.0)
[2019-03-16] MEDS ORDERED: ONDANSETRON HCL INJ/PF 4 MG/2 ML SDV IV PRN (23:43)
[2019-03-16] MEDS ORDERED: ZOLPIDEM TARTRATE 5 MG TABLET PO PRN (23:43)
[2019-03-16] MEDS ORDERED: MAG HYDROX/AL HYDROX/SIMETH SUSP 30 ML UDCUP PO PRN (23:43)
[2019-03-16] MEDS ORDERED: MEROPENEM 1 GM VIAL IV SCH (23:45)
[2019-03-16] MEDS ORDERED: MORPHINE SULFATE 10 MG/ML INJ IV PRN (23:48)
[2019-03-16] MEDS ORDERED: DOXYCYCLINE HYCLATE INJ 100 MG VIAL IV ONE (23:57)
[2019-03-17] MEDS ORDERED: MEROPENEM 1 GM VIAL IV PRN (00:10)
[2019-03-17] MEDS: METHYLPREDNISOLONE INJ 40 MG/1 ML SDV IV SCH ×4 (00:20→18:44)
[2019-03-17] MEDS: LEVALBUTEROL HCL NEB 1.25 MG/3 ML AMPUL NEB SCH ×3 (00:21→15:52)
[2019-03-17] MEDS: IPRATROPIUM BROMIDE 0.02% NEB 0.5 MG/2.5 ML AMPUL NEB SCH ×3 (01:26→15:52)
[2019-03-17] MEDS ORDERED: DOXYCYCLINE HYCLATE INJ 100 MG VIAL ONE (02:02)
[2019-03-17] MEDS ORDERED: MEROPENEM 1 GM VIAL ONE (02:02)
[2019-03-17] MEDS: MEROPENEM 1 GM in NORMAL SALINE 50 ML IV SCH ×3 (03:02→18:45)
--- NOTE | 2019-03-17 04:47 | ADVANCED CARE ---
- Diagnosis (1) Acute on chronic respiratory failure with hypoxia and hypercapnia Diagnosis Current: Yes (2) COPD exacerbation Diagnosis Current: Yes (3) Right lower lobe pneumonia Diagnosis Current: Yes (4) Leukocytosis Diagnosis Current: Yes (5) Hypothyroidism Diagnosis Current: Yes (6) Chronic respiratory failure with hypoxia, on home oxygen therapy Diagnosis Current: Yes Resuscitation Status: Other - Do Not Intubate Discussion: Discussed with patient is to her explicit wishes for her CODE STATUS. She clearly indicates that she wishes to be DO NOT RESUSCITATE and DO NOT INTUBATE as this is been her status in the past and she would like to maintain it as her current status at this point. Care Planning Goals: Patient has reached her final decision and would like to make this a permanent situation if possible. Document(s) Completed: Orders for current admission are placed. Patient is instructed to respiratory forms from her patient information packet given to her on admission to help her with a permanent DNR DNI form. Time Spent: 5 Minutes
--- NOTE | 2019-03-17 05:15 | PDOC H&P ---
History of Present Illness Admission Date/PCP: SUDARSHAN HAYS MD Patient complains of: Dyspnea History of Present Illness: AUDIE CEDILLO is a 58 year old female who presented to the emergency room with acute dyspnea. She admits that she has been treated on an outpatient basis for pneumonia and just finished a course of a azithromycin and prednisone on 03/11/2019. She reports that the therapy did not seem to be very effective as she continued to have a productive cough (small amounts of clear to whitish sputum) though her fever and chest pain resolved with treatment. While at home today she was exposed to secondhand smoke from her who was smoking in the house and developed a sudden onset of severe dyspnea. She called for EMS to help her and they reported that she had a 40% O2 sat on their arrival. She admits prior similar episodes with her COPD and respiratory failure (requires continuous home oxygen at 4 L/min via nasal cannula). She denies identification of any other aggravating or ameliorating factors for her acute dyspnea. In the emergency room she was found to be in severe respiratory distress with extensive use of accessory muscles. She was also noted to have persistence of the right lower lung field pneumonia and an elevated white count at 18,000. She was placed on BiPAP and subsequently will be admitted to the hospital for further ev aluation and treatment. Past Medical History Cardiac Medical History: Reports: Congestive Heart Failure - Diastolic Denies: Atrial Fibrillation, DVT, Myocardial Infarction, Hyperlipidema, Hypertension, Pulmonary Embolism Pulmonary Medical History: Reports: Asthma, Bronchitis, Chronic Obstructive Pulmonary Disease (COPD) - home O2 & BIPAP-dependent, Intubation - Now DNR/DNI, Pneumonia, Respiratory Failure - Chronic EENT Medical History: Denies: Cataracts, Ears - Hearing aids Neurological Medical History: Reports: Migraine Denies: Multiple Sclerosis, Seizures Endocrine Medical History: Reports: Hypothyroidism, Obesity Denies: Diabetes Mellitus Type 1, Diabetes Mellitus Type 2, Hyperthyroidism Renal/ Medical History: Denies: Chronic Kidney Disease, Nephrolithiasis Malignancy Medical History: Reports: None GI Medical History: Reports: Gastroesophageal Reflux Disease Denies: Cirrhosis, Crohn's Disease, Hepatitis, Ulcerative Colitis Musculoskeltal Medical History: Reports: Arthritis Denies: Gout Skin Medical History: Denies: Eczema, Psoriasis Psychiatric Medical History: Reports: Tobacco Dependency Denies: Alcohol Dependency, Bipolar Disorder, Depression, Substance Abuse Traumatic Medical History: Reports: Pneumothorax - x4 R lung, 2010 when the patient had a right lung bx required a chest tube Denies: Gunshot Wound Hematology: Reports: Anemia Denies: Hemophilia, Bleeding Tendencies Infectious Medical History: Reports: None Past Surgical History Past Surgical History: Reports: Hysterectomy, Tonsillectomy, Tubal Ligation, Other - Lung biopsy Social History Information Source: Patient Lives with: Spouse/Significant other Smoking Status: Former Smoker Frequency of Alcohol Use: None Hx Recreational Drug Use: No Drugs: None Hx Prescription Drug Abuse: No - Advance Directive Resuscitation Status: Full Code Surrogate healthcare decision maker:: Solomon Cedillo Family History Family History: Hyperlipidemia, Hypertension Parental Family History Reviewed: Yes Children Family History Reviewed: No Sibling(s) Family History Reviewed.: Yes Medication/Allergy Home Medications: Bisoprolol Fumarate [Zebeta 5 mg Tablet] 2.5 mg PO DAILY 01/06/19 Gabapentin [Neurontin 100 mg Capsule] 100 mg PO QHS 01/06/19 Ibuprofen [Motrin 800 mg Tablet] 500 mg PO Q6HP PRN 01/06/19 Ipratropium/Albuterol Sulfate [Duoneb 3 ml Ampul] 1 vial NEB Q4HP PRN 01/06/19 Levocetirizine Dihydrochloride [Xyzal] 5 mg PO QPM 01/06/19 Levothyroxine Sodium [Synthroid 0.025 mg Tablet] 0.025 mg PO Q6AM 01/06/19 Montelukast Sodium [Singulair 10 mg Tablet] 10 mg PO DAILY 01/06/19 Omeprazole 40 mg PO QAM 01/06/19 Ondansetron HCl [Zofran 4 mg Tablet] 4 mg PO DAILYP PRN 01/06/19 Roflumilast [Daliresp 500 mcg Tablet] 500 mcg PO DAILY 01/06/19 Ropinirole HCl [Requip] 1 mg PO QHS 01/06/19 Budesonide/Formoterol Fumarate [Symbicort HFA 160-4.5 mcg Inhaler 6 gm] 2 puff IH Q12 1 Days #1 inhaler 01/12/19 Levofloxacin [Levaquin 750 mg Tablet] 750 mg PO DAILY 5 Days #5 tablet 01/12/19 Prednisone [Deltasone 20 mg Tablet] 20 mg PO BID 5 Days #10 tablet 01/12/19 Tiotropium Converse [Spiriva Respimat] 2 puff IH DAILY #2 mist.inhal 01/12/19 Allergies/Adverse Reactions: doxepin [Doxepin] Allergy (Verified 09/30/18 16:24) Shortness of Breath, Swelling etodolac [Etodolac] Allergy (Verified 09/30/18 16:24) loratadine [Loratadine] Allergy (Verified 09/30/18 16:24) Shortness of Breath, Swelling meloxicam [Meloxicam] Allergy (Verified 09/30/18 16:24) Sulfa (Sulfonamide Antibiotics) Allergy (Verified 09/30/18 16:24) Shortness of Breath, Swelling Review of Systems Constitutional: ABSENT: chills, fever(s) Eyes: ABSENT: visual disturbances, other - Eye pain Ears: ABSENT: hearing changes, other - Ear pain Nose, Mouth, and Throat: ABSENT: mouth pain, sore throat Cardiovascular: ABSENT: chest pain, edema, orthropnea, palpitations Respiratory: PRESENT: as per HPI, cough, dyspnea, sputum. ABSENT: hemoptysis Gastrointestinal: ABSENT: abdominal pain, constipation, diarrhea, nausea, vomiting Genitourinary: ABSENT: dysuria, hematuria Musculoskeletal: ABSENT: joint swelling, muscle weakness Integumentary: ABSENT: pruritus, rash Neurological: ABSENT: confusion, convulsions, focal weakness, memory loss, syncope Psychiatric: ABSENT: anxiety, depression Endocrine: ABSENT: cold intolerance, heat intolerance Hematologic/Lymphatic: ABSENT: easy bleeding, easy bruising Physical Exam Vital Signs: Temp Pulse Resp BP Pulse Ox 22 H 125/63 98 03/16/19 23:00 03/16/19 22:00 03/16/19 23:00 Intake & Output 03/14/19 03/15/19 03/16/19 23:59 23:59 23:59 Weight 83.915 kg General appearance: PRESENT: cooperative, mild distress - Due to dyspnea, obese, other - Currently on BiPAP Head exam: PRESENT: atraumatic, normocephalic Eye exam: ABSENT: conjunctival injection, scleral icterus Ear exam: PRESENT: normal external ear exam. ABSENT: bleeding, drainage Mouth exam: PRESENT: dry mucosa, neck supple Neck exam: ABSENT: JVD, thyromegaly, tracheal deviation Respiratory exam: PRESENT: decreased breath sounds - Moderately decreased breath sounds throughout all malik consistent with moderate to severe COPD, prolonged expiratory phas - Moderately prolonged expiratory phase throughout all malik, symmetrical, wheezes - Expiratory wheezes present in all malik, other - On BiPAP Cardiovascular exam: PRESENT: RRR, tachycardia. ABSENT: clicks, gallop, rubs Pulses: PRESENT: normal radial pulses, normal dorsalis pedis pul Vascular exam: PRESENT: normal capillary refill. ABSENT: pallor GI/Abdominal exam: PRESENT: normal bowel sounds, soft Rectal exam: PRESENT: deferred Extremities exam: ABSENT: joint swelling, pedal edema Musculoskeletal exam: PRESENT: full ROM, normal inspection Neurological exam: PRESENT: alert, oriented to person, oriented to place, oriented to time, oriented to situation, CN II-XII grossly intact. ABSENT: motor sensory deficit Psychiatric exam: PRESENT: appropriate affect, normal mood Skin exam: PRESENT: dry, intact, warm. ABSENT: jaundice, rash, urticaria Results Laboratory Results: 03/16/19 20:45 03/16/19 20:45 03/16/19 03/16/19 03/16/19 20:45 20:45 20:45 WBC 18.5 H RBC 4.08 Hgb 11.8 L Hct 36.9 MCV 90 MCH 28.9 MCHC 32.0 RDW 17.0 H Plt Count 175 Seg Neutrophils % Not Reportable Lymphocytes % Not Reportable Monocytes % Not Reportable Eosinophils % Not Reportable Basophils % Not Reportable Absolute Neutrophils Not Reportable Absolute Lymphocytes Not Reportable Absolute Monocytes Not Reportable Absolute Eosinophils Not Reportable Absolute Basophils Not Reportable Carbonic Acid 2.38 H HCO3/H2CO3 Ratio 17:1 ABG pH 7.35 ABG pCO2 79.1 H* ABG pO2 81.8 ABG HCO3 42.8 H ABG O2 Saturation 95.0 ABG Base Excess 13.9 FiO2 40% Sodium 141.2 Potassium 4.1 Chloride 94 L Carbon Dioxide 39 H Anion Gap 8 BUN 21 H Creatinine 0.49 L Est GFR ( Amer) > 60 Est GFR (Non-Af Amer) > 60 Glucose 110 Calcium 8.4 Total Bilirubin 0.6 AST 20 ALT 20 Alkaline Phosphatase 61 Total Protein 6.8 Albumin 4.1 03/16/19 03/16/19 03/16/19 20:45 20:45 21:01 Creatine Kinase 23 L CK-MB (CK-2) Cancelled 0.56 Troponin I Cancelled 0.013 NT-Pro-B Natriuret Pep Cancelled Impressions: Chest X-Ray 03/16/19 20:42 IMPRESSION: Interval development of alveolar infiltrate in the right lung base concerning for pneumonia Chronic-appearing changes in the right upper lobe and around the right hilum Chest/Abdomen CTA 03/16/19 20:53 IMPRESSION: Negative for pulmonary embolus, thoracic aortic aneurysm, or dissection. Severe emphysematous changes. Bibasilar bronchiectasis and scarring. Consolidative change posterior right lung base TECHNICAL DOCUMENTATION: Quality ID # [id number]: Final reports with documentation of one or more dose reduction techniques (e.g., Automated exposure control, adjustment of the mA and/or kV according to patient size, use of iterative reconstruction technique) copyright 2011 [employer]- All Rights Reserved Assessment and Plan - Diagnosis (1) Acute on chronic respiratory failure with hypoxia and hypercapnia Is this a current diagnosis for this admission?: Yes Plan: Patient will be treated with BiPAP and supplemental oxygen as required. Her ABGs will be followed on a regular basis and also repeated as needed. Patient may require intubation if her hypercapnia cannot be resolved with BiPAP. Pulmonary consultation will be obtained when available. (2) COPD exacerbation Is this a current diagnosis for this admission?: Yes Plan: Patient be treated with aggressive pulmonary toilet utilizing nebulized Xopenex, Pulmicort, Atrovent and Mucomyst. She will be treated with intravenous Solu- Medrol and will be provided supplemental oxygen and advanced airway pressure support as required to maintain adequate oxygenation. Consideration for possible intubation and ventilation will be given. (3) Right lower lobe pneumonia Qualifiers: Pneumonia type: due to unspecified organism Qualified Code(s): J18.1 - Lobar pneumonia, unspecified organism Is this a current diagnosis for this admission?: Yes Plan: Patient is an outpatient treatment failure utilizing azithromycin and steroids for her community-acquired pneumonia. She will be treated with broad-spectrum antibiotics utilizing meropenem 1 g IV every 8 hours. She will also be treated with doxycycline 100 mg p.o. twice daily with food after receiving an initial 100 mg IV dosage at the time of admission. Blood cultures are pending. Daily CBC and metabolic profile with magnesium level will be obtained the patient's illness and course of treatment. In the event that her pleuritic chest pain recurs patient will receive morphine sulfate 2 to 4 mg IV every 2 hours on a as needed basis via sliding scale. (4) Leukocytosis Qualifiers: Leukocytosis type: unspecified Qualified Code(s): D72.829 - Elevated white blood cell count, unspecified Is this a current diagnosis for this admission?: Yes Plan: Patient's leukocytosis will be followed with daily lab work including a daily CBC. Further evaluation will be undertaken as appropriate. (5) Hypothyroidism Qualifiers: Hypothyroidism type: acquired Qualified Code(s): E03.9 - Hypothyroidism, unspecified Is this a current diagnosis for this admission?: Yes Plan: Continue current thyroid replacement therapy. Consider checking a thyroid profile if none done recently. (6) Chronic respiratory failure with hypoxia, on home oxygen therapy Is this a current diagnosis for this admission?: Yes Plan: Patient will be continued on supplemental oxygen and BiPAP. Her chronic respiratory status also includes chronic hypercapnia. Adjustments to her home regimen will be made as appropriate later in the course of her current hospital stay. - Time Time Spent with patient: 25-34 minutes Medications reviewed and adjusted accordingly: Yes Anticipated discharge: Home - Inpatient Certification Based on my medical assessment, after consideration of the patient's comorbidities, presenting symptoms, or acuity I expect that the services needed warrant INPATIENT care.: Yes I certify that my determination is in accordance with my understanding of Medicare's requirements for reasonable and necessary INPATIENT services [42 CFR 412.3e].: Yes Medical Necessity: Failure to Improve With Outpatient Therapy, Significant Comorbidiites Make Outpatient Treatment Too Risky, Need Close Monitoring Due to Risk of Patient Decompensation, Need for Nebulizer Therapy and Monitoring of Response, Need for IV Antibiotics, Risk of Complication if Not Cared For in Hospital
[2019-03-17 05:19] LABS: HEMATOCRIT 31.9 % (36.0-47.0); HEMOGLOBIN 10.3 g/dL (12.0-15.5); MEAN CORPUSCULAR HGB CONC 32.3 g/dL (32.0-36.0); MEAN CORPUSCULAR VOLUME 90 fl (80-97); PLATELET COUNT 121 10^3/uL (150-450); RED BLOOD COUNT 3.55 10^6/uL (3.72-5.28); RED CELL DISTRIBUTION WIDTH 16.9 % (11.5-14.0); WHITE BLOOD COUNT 14.8 10^3/uL (4.0-10.5)
[2019-03-17 05:26] LABS: BLOOD UREA NITROGEN 21 mg/dL (7-20); CALCIUM 8.4 mg/dL (8.4-10.2); CHLORIDE 92 mmol/L (98-107); GLUCOSE 203 mg/dL (75-110); POTASSIUM 4.7 mmol/L (3.6-5.0); SODIUM 141.8 mmol/L (137-145)
[2019-03-17 05:37] LABS: ANION GAP 9 (5-19)
[2019-03-17 05:44] LABS: CARBON DIOXIDE 41 mmol/L (22-30)
[2019-03-17] MEDS: HEPARIN SOD (PORCINE) 5,000 UNIT/ML 1 ML SYRINGE SUBCUT SCH ×3 (05:49→21:06)
[2019-03-17] MEDS: LEVOTHYROXINE SODIUM 0.025 MG TABLET PO SCH (05:53)
[2019-03-17 07:36] LABS: ARTERIAL BLOOD BASE EXCESS 15.3 mmol/L; ARTERIAL BLOOD H2CO3 3.17 mmol/L (1.05-1.35); ARTERIAL BLOOD HCO3 46.3 mmol/L (20-24); ARTERIAL BLOOD O2 SATURATION 97.1 % (94-98); ARTERIAL BLOOD PH 7.26 (7.35-7.45); ARTERIAL BLOOD PO2 112.5 mmHg (80-100); ARTERIAL BLOOD TOTAL CO2 49.5 mmol/L (21-25)
[2019-03-17 07:38] LABS: ARTERIAL BLOOD FIO2 4L
[2019-03-17 07:42] LABS: ARTERIAL BLOOD PCO2 105.3 mmHg (35-45)
[2019-03-17] MEDS: BUDESONIDE NEB 0.5 MG/2 ML AMPUL NEB SCH ×2 (08:22→19:45)
[2019-03-17] MEDS: ACETYLCYSTEINE 20% SOLN 800 MG/4 ML VIAL.NEB NEB SCH ×2 (09:49→19:46)
[2019-03-17] MEDS: FAMOTIDINE 20 MG TABLET PO SCH ×2 (10:38→21:06)
[2019-03-17] MEDS: DOCUSATE SODIUM 100 MG CAPSULE PO SCH ×2 (10:38→18:45)
[2019-03-17] MEDS: DOXYCYCLINE HYCLATE 100 MG TABLET PO SCH ×2 (10:39→18:45)
[2019-03-17] MEDS: MONTELUKAST SODIUM 10 MG TABLET PO SCH (10:39)
[2019-03-17] MEDS: ACETAMINOPHEN 325 MG TABLET PO PRN ×2 (10:43→18:44)
[2019-03-17] MEDS: LEVALBUTEROL HCL NEB 0.63 MG/3 ML AMPUL NEB PRN ×2 (13:35→19:45)
--- NOTE | 2019-03-17 17:09 | PDOC PROGRESS REPORT ---
Subjective Progress Note for:: 03/17/19 Subjective:: No adverse events overnight. She was off BiPAP for a while and we checked a blood gas on her and her PCO2 was elevated above 100. Remarkably, she was still awake and talking. She is been on BiPAP for a while today and has been tolerating it fairly well. Reason For Visit: ACUTE RESPIRATORY FAILURE WITH HYPOXIA AND Physical Exam Vital Signs: Temp Pulse Resp BP Pulse Ox 97.7 F 99 31 H 91/52 L 92 03/17/19 12:20 03/17/19 15:52 03/17/19 15:52 03/17/19 12:20 03/17/19 15:52 Intake & Output 03/16/19 03/17/19 03/18/19 06:59 06:59 06:59 Intake Total 100 272 Output Total 500 Balance -400 272 Weight 65 kg General appearance: PRESENT: no acute distress, cooperative, disheveled Respiratory exam: PRESENT: decreased breath sounds, prolonged expiratory phas, symmetrical, unlabored, other - Generally coarse. ABSENT: accessory muscle use, crackles, rhonchi, tachypnea, wheezes Cardiovascular exam: PRESENT: RRR, +S1, +S2 Pulses: PRESENT: normal carotid pulses Vascular exam: PRESENT: normal capillary refill GI/Abdominal exam: PRESENT: normal bowel sounds, soft. ABSENT: distended, guarding, rebound, tenderness Extremities exam: ABSENT: clubbing, pedal edema Musculoskeletal exam: PRESENT: normal inspection. ABSENT: deformity Neurological exam: PRESENT: alert, awake, oriented to person, oriented to place, oriented to situation Psychiatric exam: PRESENT: flat affect Skin exam: PRESENT: dry, warm, other - Generally dusky in color Results Laboratory Results: 03/17/19 04:56 03/17/19 04:56 03/16/19 03/16/19 03/16/19 20:45 20:45 20:45 WBC 18.5 H RBC 4.08 Hgb 11.8 L Hct 36.9 MCV 90 MCH 28.9 MCHC 32.0 RDW 17.0 H Plt Count 175 Seg Neutrophils % Not Reportable Lymphocytes % Not Reportable Monocytes % Not Reportable Eosinophils % Not Reportable Basophils % Not Reportable Absolute Neutrophils Not Reportable Absolute Lymphocytes Not Reportable Absolute Monocytes Not Reportable Absolute Eosinophils Not Reportable Absolute Basophils Not Reportable Carbonic Acid 2.38 H HCO3/H2CO3 Ratio 17:1 ABG pH 7.35 ABG pCO2 79.1 H* ABG pO2 81.8 ABG HCO3 42.8 H ABG O2 Saturation 95.0 ABG Base Excess 13.9 FiO2 40% Sodium 141.2 Potassium 4.1 Chloride 94 L Carbon Dioxide 39 H Anion Gap 8 BUN 21 H Creatinine 0.49 L Est GFR ( Amer) > 60 Est GFR (Non-Af Amer) > 60 Glucose 110 Calcium 8.4 Magnesium Total Bilirubin 0.6 AST 20 ALT 20 Alkaline Phosphatase 61 Total Protein 6.8 Albumin 4.1 Urine Color Urine Appearance Urine pH Ur Specific [place] Urine Protein Urine Glucose (UA) Urine Ketones Urine Blood Urine Nitrite Ur Leukocyte Esterase Urine WBC (Auto) Urine RBC (Auto) 03/16/19 03/17/19 03/17/19 22:51 04:56 04:56 WBC 14.8 H RBC 3.55 L Hgb 10.3 L Hct 31.9 L MCV 90 MCH 29.0 MCHC 32.3 RDW 16.9 H Plt Count 121 L Seg Neutrophils % Lymphocytes % Monocytes % Eosinophils % Basophils % Absolute Neutrophils Absolute Lymphocytes Absolute Monocytes Absolute Eosinophils Absolute Basophils Carbonic Acid HCO3/H2CO3 Ratio ABG pH ABG pCO2 ABG pO2 ABG HCO3 ABG O2 Saturation ABG Base Excess FiO2 Sodium 141.8 Potassium 4.7 Chloride 92 L Carbon Dioxide 41 H* Anion Gap 9 BUN 21 H Creatinine 0.54 Est GFR ( Amer) > 60 Est GFR (Non-Af Amer) > 60 Glucose 203 H Calcium 8.4 Magnesium 2.2 Total Bilirubin AST ALT Alkaline Phosphatase Total Protein Albumin Urine Color STRAW Urine Appearance CLEAR Urine pH 5.0 Ur Specific [place] 1.013 Urine Protein NEGATIVE Urine Glucose (UA) NEGATIVE Urine Ketones NEGATIVE Urine Blood SMALL H Urine Nitrite NEGATIVE Ur Leukocyte Esterase NEGATIVE Urine WBC (Auto) 1 Urine RBC (Auto) 0 03/17/19 06:40 WBC RBC Hgb Hct MCV MCH MCHC RDW Plt Count Seg Neutrophils % Lymphocytes % Monocytes % Eosinophils % Basophils % Absolute Neutrophils Absolute Lymphocytes Absolute Monocytes Absolute Eosinophils Absolute Basophils Carbonic Acid 3.17 H HCO3/H2CO3 Ratio 14:1 ABG pH 7.26 L ABG pCO2 105.3 H* ABG pO2 112.5 H ABG HCO3 46.3 H ABG O2 Saturation 97.1 ABG Base Excess 15.3 FiO2 4L Sodium Potassium Chloride Carbon Dioxide Anion Gap BUN Creatinine Est GFR ( Amer) Est GFR (Non-Af Amer) Glucose Calcium Magnesium Total Bilirubin AST ALT Alkaline Phosphatase Total Protein Albumin Urine Color Urine Appearance Urine pH Ur Specific [place] Urine Protein Urine Glucose (UA) Urine Ketones Urine Blood Urine Nitrite Ur Leukocyte Esterase Urine WBC (Auto) Urine RBC (Auto) 03/16/19 03/16/19 03/16/19 20:45 20:45 21:01 Creatine Kinase 23 L CK-MB (CK-2) Cancelled 0.56 Troponin I Cancelled 0.013 NT-Pro-B Natriuret Pep Cancelled Impressions: Chest X-Ray 03/16/19 20:42 IMPRESSION: Interval development of alveolar infiltrate in the right lung base concerning for pneumonia Chronic-appearing changes in the right upper lobe and around the right hilum Chest/Abdomen CTA 03/16/19 20:53 IMPRESSION: Negative for pulmonary embolus, thoracic aortic aneurysm, or dissection. Severe emphysematous changes. Bibasilar bronchiectasis and scarring. Consolidative change posterior right lung base TECHNICAL DOCUMENTATION: Quality ID # [id number]: Final reports with documentation of one or more dose reduction techniques (e.g., Automated exposure control, adjustment of the mA and/or kV according to patient size, use of iterative reconstruction technique) copyright 2011 [employer]- All Rights Reserved Assessment and Plan - Diagnosis (1) Acute and chronic respiratory failure with hypercapnia Is this a current diagnosis for this admission?: Yes Plan: She is a chronic CO2 retainer and it sounds like she may have been keeping her SPO2 at home a little too high. She said it is typically between 94-97, and I told her she should be around 90. She has been on BiPAP for a while, so we are going to repeat an ABG to see if her gases have corrected somewhat. (2) COPD exacerbation Is this a current diagnosis for this admission?: Yes Plan: Currently on empiric steroids, antibiotics, bronchodilators, along with oxygen support. She has a history of severe emphysema. (3) Hypothyroidism Qualifiers: Hypothyroidism type: acquired Qualified Code(s): E03.9 - Hypothyroidism, unspecified Is this a current diagnosis for this admission?: Yes Plan: Continue current thyroid replacement therapy. - Time Time Spent with patient: 15-24 minutes
[2019-03-17 18:06] LABS: ARTERIAL BLOOD BASE EXCESS 16.3 mmol/L; ARTERIAL BLOOD FIO2 30%; ARTERIAL BLOOD H2CO3 2.02 mmol/L (1.05-1.35); ARTERIAL BLOOD HCO3 43.6 mmol/L (20-24); ARTERIAL BLOOD O2 SATURATION 91.3 % (94-98); ARTERIAL BLOOD PCO2 67.2 mmHg (35-45); ARTERIAL BLOOD PH 7.43 (7.35-7.45); ARTERIAL BLOOD PO2 61.7 mmHg (80-100); ARTERIAL BLOOD TOTAL CO2 45.7 mmol/L (21-25)
[2019-03-17] MEDS: ROPINIROLE HCL 1 MG TABLET PO SCH (21:06)
[2019-03-17] MEDS: GABAPENTIN 100 MG CAPSULE PO SCH (21:06)
[2019-03-18] MEDS: METHYLPREDNISOLONE INJ 40 MG/1 ML SDV IV SCH ×4 (00:28→17:47)
[2019-03-18] MEDS: IPRATROPIUM BROMIDE 0.02% NEB 0.5 MG/2.5 ML AMPUL NEB SCH ×3 (00:28→15:53)
[2019-03-18] MEDS: LEVALBUTEROL HCL NEB 1.25 MG/3 ML AMPUL NEB SCH ×3 (00:28→15:53)
[2019-03-18] MEDS: MEROPENEM 1 GM in NORMAL SALINE 50 ML IV SCH ×3 (01:58→17:47)
[2019-03-18 04:55] LABS: HEMATOCRIT 29.6 % (36.0-47.0); HEMOGLOBIN 9.7 g/dL (12.0-15.5); MEAN CORPUSCULAR HGB CONC 32.8 g/dL (32.0-36.0); MEAN CORPUSCULAR VOLUME 88 fl (80-97); PLATELET COUNT 127 10^3/uL (150-450); RED BLOOD COUNT 3.35 10^6/uL (3.72-5.28); RED CELL DISTRIBUTION WIDTH 16.6 % (11.5-14.0); WHITE BLOOD COUNT 9.8 10^3/uL (4.0-10.5)
[2019-03-18 05:15] LABS: BLOOD UREA NITROGEN 23 mg/dL (7-20); CALCIUM 8.6 mg/dL (8.4-10.2); CHLORIDE 93 mmol/L (98-107); GLUCOSE 137 mg/dL (75-110); POTASSIUM 4.5 mmol/L (3.6-5.0); SODIUM 140.9 mmol/L (137-145)
[2019-03-18] MEDS: LEVOTHYROXINE SODIUM 0.025 MG TABLET PO SCH (05:21)
[2019-03-18] MEDS: HEPARIN SOD (PORCINE) 5,000 UNIT/ML 1 ML SYRINGE SUBCUT SCH ×3 (05:22→21:26)
[2019-03-18 05:29] LABS: ANION GAP 4 (5-19)
[2019-03-18 05:32] LABS: CARBON DIOXIDE 44 mmol/L (22-30)
[2019-03-18] MEDS: ACETYLCYSTEINE 20% SOLN 800 MG/4 ML VIAL.NEB NEB SCH ×2 (07:48→19:57)
[2019-03-18] MEDS: BUDESONIDE NEB 0.5 MG/2 ML AMPUL NEB SCH ×2 (07:49→19:57)
[2019-03-18] MEDS: DOCUSATE SODIUM 100 MG CAPSULE PO SCH ×2 (10:16→17:47)
[2019-03-18] MEDS: MONTELUKAST SODIUM 10 MG TABLET PO SCH (10:16)
[2019-03-18] MEDS: ACETAMINOPHEN 325 MG TABLET PO PRN (10:16)
[2019-03-18] MEDS: FAMOTIDINE 20 MG TABLET PO SCH ×3 (10:17→21:46)
[2019-03-18] MEDS: DOXYCYCLINE HYCLATE 100 MG TABLET PO SCH ×2 (10:17→17:47)
[2019-03-18] MEDS: LEVALBUTEROL HCL NEB 0.63 MG/3 ML AMPUL NEB PRN ×2 (12:29→19:57)
--- NOTE | 2019-03-18 18:09 | PDOC PROGRESS REPORT ---
Subjective Progress Note for:: 03/18/19 Subjective:: No adverse events overnight. Was able to come off BiPAP. She says she has a trilogy device at home but she has not been using it for the past week or so because with the mask she uses it covers her face and she felt like she was swallowing a lot of air and it made her vomit. We talked about her using a nasal mask but the problem is she mouth breathes a lot. Reason For Visit: ACUTE RESPIRATORY FAILURE WITH HYPOXIA AND Physical Exam Vital Signs: Temp Pulse Resp BP Pulse Ox 98.5 F 92 22 H 97/50 L 98 03/18/19 12:55 03/18/19 15:54 03/18/19 15:54 03/18/19 12:55 03/18/19 15:54 Intake & Output 03/17/19 03/18/19 03/19/19 06:59 06:59 06:59 Intake Total 100 594 509 Output Total 230 180 6627 Balance -400 -6 -691 Weight 65 kg 66.8 kg General appearance: PRESENT: no acute distress, cooperative, disheveled Respiratory exam: PRESENT: decreased breath sounds, prolonged expiratory phas, symmetrical, unlabored, other - Generally coarse. ABSENT: accessory muscle use, crackles, rhonchi, tachypnea, wheezes Cardiovascular exam: PRESENT: RRR, +S1, +S2 Pulses: PRESENT: normal carotid pulses Vascular exam: PRESENT: normal capillary refill GI/Abdominal exam: PRESENT: normal bowel sounds, soft. ABSENT: distended, guarding, rebound, tenderness Extremities exam: ABSENT: clubbing, pedal edema Musculoskeletal exam: PRESENT: normal inspection. ABSENT: deformity Neurological exam: PRESENT: alert, awake, oriented to person, oriented to place, oriented to situation Psychiatric exam: PRESENT: flat affect Skin exam: PRESENT: dry, warm, other - Generally dusky in color Results Laboratory Results: 03/18/19 04:18 03/18/19 04:18 03/17/19 03/18/19 03/18/19 17:23 04:18 04:18 WBC 9.8 RBC 3.35 L Hgb 9.7 L Hct 29.6 L MCV 88 MCH 29.0 MCHC 32.8 RDW 16.6 H Plt Count 127 L Carbonic Acid 2.02 H HCO3/H2CO3 Ratio 21:1 ABG pH 7.43 ABG pCO2 67.2 H ABG pO2 61.7 L ABG HCO3 43.6 H ABG O2 Saturation 91.3 L ABG Base Excess 16.3 FiO2 30% Sodium 140.9 Potassium 4.5 Chloride 93 L Carbon Dioxide 44 H* Anion Gap 4 L BUN 23 H Creatinine 0.42 L Est GFR ( Amer) > 60 Est GFR (Non-Af Amer) > 60 Glucose 137 H Calcium 8.6 Magnesium 2.3 03/16/19 03/16/19 03/16/19 20:45 20:45 21:01 Creatine Kinase 23 L CK-MB (CK-2) Cancelled 0.56 Troponin I Cancelled 0.013 NT-Pro-B Natriuret Pep Cancelled Impressions: Chest X-Ray 03/16/19 20:42 IMPRESSION: Interval development of alveolar infiltrate in the right lung base concerning for pneumonia Chronic-appearing changes in the right upper lobe and around the right hilum Chest/Abdomen CTA 03/16/19 20:53 IMPRESSION: Negative for pulmonary embolus, thoracic aortic aneurysm, or dissection. Severe emphysematous changes. Bibasilar bronchiectasis and scarring. Consolidative change posterior right lung base TECHNICAL DOCUMENTATION: Quality ID # 436: Final reports with documentation of one or more dose reduction techniques (e.g., Automated exposure control, adjustment of the mA and/or kV according to patient size, use of iterative reconstruction technique) copyright 2011 [employer]- All Rights Reserved Assessment and Plan - Diagnosis (1) Acute and chronic respiratory failure with hypercapnia Is this a current diagnosis for this admission?: Yes Plan: Her blood gases have mostly corrected to what is normal for her. Her PCO2 is in the mid 60s with a normal pH and I think that is probably about where she is most of the time. Told her to keep her her oxygen at a level where her SPO2 around 90% at rest. (2) COPD exacerbation Is this a current diagnosis for this admission?: Yes Plan: She is improving so we are going to transition her to prednisone. Continue bronchodilators. (3) Hypothyroidism Qualifiers: Hypothyroidism type: acquired Qualified Code(s): E03.9 - Hypothyroidism, unspecified Is this a current diagnosis for this admission?: Yes Plan: Continue current thyroid replacement therapy. - Time Time Spent with patient: 15-24 minutes
[2019-03-18] MEDS: GABAPENTIN 100 MG CAPSULE PO SCH (21:46)
[2019-03-18] MEDS: ROPINIROLE HCL 1 MG TABLET PO SCH (21:46)
[2019-03-19] MEDS: IPRATROPIUM BROMIDE 0.02% NEB 0.5 MG/2.5 ML AMPUL NEB SCH ×3 (00:24→16:08)
[2019-03-19] MEDS: LEVALBUTEROL HCL NEB 1.25 MG/3 ML AMPUL NEB SCH ×3 (00:24→16:08)
[2019-03-19] MEDS: MEROPENEM 1 GM in NORMAL SALINE 50 ML IV SCH ×3 (02:55→17:40)
[2019-03-19] MEDS: IBUPROFEN 800 MG TABLET PO PRN ×3 (03:01→17:44)
[2019-03-19] MEDS: HEPARIN SOD (PORCINE) 5,000 UNIT/ML 1 ML SYRINGE SUBCUT SCH ×3 (05:19→22:04)
[2019-03-19] MEDS: LEVOTHYROXINE SODIUM 0.025 MG TABLET PO SCH (05:58)
[2019-03-19 06:24] LABS: HEMATOCRIT 28.3 % (36.0-47.0); HEMOGLOBIN 9.2 g/dL (12.0-15.5); MEAN CORPUSCULAR HGB CONC 32.6 g/dL (32.0-36.0); MEAN CORPUSCULAR VOLUME 89 fl (80-97); PLATELET COUNT 137 10^3/uL (150-450); RED BLOOD COUNT 3.17 10^6/uL (3.72-5.28); RED CELL DISTRIBUTION WIDTH 16.7 % (11.5-14.0); WHITE BLOOD COUNT 8.9 10^3/uL (4.0-10.5)
[2019-03-19 06:25] LABS: VENOUS BLOOD BASE EXCESS 18.9 mmol/L; VENOUS BLOOD HCO3 49.2 mmol/L (20-32); VENOUS BLOOD PH 7.3 (7.30-7.42)
[2019-03-19] MEDS: LEVALBUTEROL HCL NEB 0.63 MG/3 ML AMPUL NEB PRN ×3 (06:42→20:35)
[2019-03-19 06:50] LABS: BLOOD UREA NITROGEN 21 mg/dL (7-20); CALCIUM 8.6 mg/dL (8.4-10.2); CHLORIDE 92 mmol/L (98-107); GLUCOSE 93 mg/dL (75-110); POTASSIUM 4.4 mmol/L (3.6-5.0); SODIUM 139.5 mmol/L (137-145)
[2019-03-19 07:17] LABS: CARBON DIOXIDE 44 mmol/L (22-30)
[2019-03-19 07:25] LABS: ANION GAP 4 (5-19)
[2019-03-19] MEDS: BUDESONIDE NEB 0.5 MG/2 ML AMPUL NEB SCH ×2 (07:57→20:35)
[2019-03-19] MEDS: ACETYLCYSTEINE 20% SOLN 800 MG/4 ML VIAL.NEB NEB SCH ×2 (07:57→20:35)
[2019-03-19] MEDS: ACETAMINOPHEN 325 MG TABLET PO PRN ×3 (10:26→22:03)
[2019-03-19 10:27] LABS: ARTERIAL BLOOD BASE EXCESS 11.3 mmol/L; ARTERIAL BLOOD H2CO3 2.76 mmol/L (1.05-1.35); ARTERIAL BLOOD HCO3 42.5 mmol/L (20-24); ARTERIAL BLOOD PH 7.28 (7.35-7.45); ARTERIAL BLOOD PO2 127.7 mmHg (80-100); ARTERIAL BLOOD TOTAL CO2 45.3 mmol/L (21-25)
[2019-03-19] MEDS: DOXYCYCLINE HYCLATE 100 MG TABLET PO SCH ×2 (10:27→17:40)
[2019-03-19] MEDS: DOCUSATE SODIUM 100 MG CAPSULE PO SCH ×2 (10:27→17:40)
[2019-03-19] MEDS: FAMOTIDINE 20 MG TABLET PO SCH ×2 (10:27→22:04)
[2019-03-19] MEDS: MONTELUKAST SODIUM 10 MG TABLET PO SCH (10:27)
[2019-03-19 10:31] LABS: ARTERIAL BLOOD FIO2 45%
[2019-03-19 10:33] LABS: ARTERIAL BLOOD PCO2 91.6 mmHg (35-45)
--- NOTE | 2019-03-19 15:29 | PDOC PROGRESS REPORT ---
Subjective Progress Note for:: 03/19/19 Subjective:: No adverse events overnight. No new complaints. Vital signs been stable. She went back on BiPAP this morning because her PCO2 was elevated again. She was asking for pain medicine. She says she takes morphine at home. Reason For Visit: ACUTE RESPIRATORY FAILURE WITH HYPOXIA AND Physical Exam Vital Signs: Temp Pulse Resp BP Pulse Ox 97.8 F 109 H 8 L 113/60 100 03/19/19 12:15 03/19/19 12:15 03/19/19 12:15 03/19/19 12:15 03/19/19 12:15 Intake & Output 03/18/19 03/19/19 03/20/19 06:59 06:59 06:59 Intake Total 594 1633 467 Output Total 600 3050 200 Balance -6 -1417 267 Weight 66.8 kg 68.7 kg General appearance: PRESENT: no acute distress, cooperative, disheveled Respiratory exam: PRESENT: decreased breath sounds, prolonged expiratory phas, symmetrical, unlabored, other - Generally coarse. ABSENT: accessory muscle use, crackles, rhonchi, tachypnea, wheezes Cardiovascular exam: PRESENT: RRR, +S1, +S2 Pulses: PRESENT: normal carotid pulses Vascular exam: PRESENT: normal capillary refill GI/Abdominal exam: PRESENT: normal bowel sounds, soft. ABSENT: distended, guarding, rebound, tenderness Extremities exam: ABSENT: clubbing, pedal edema Musculoskeletal exam: PRESENT: normal inspection. ABSENT: deformity Neurological exam: PRESENT: alert, awake, oriented to person, oriented to place, oriented to situation Psychiatric exam: PRESENT: flat affect Skin exam: PRESENT: dry, warm, other - Generally dusky in color Results Laboratory Results: 03/19/19 05:57 03/19/19 05:57 03/19/19 03/19/19 03/19/19 05:57 05:57 05:57 WBC 8.9 RBC 3.17 L Hgb 9.2 L Hct 28.3 L MCV 89 MCH 29.0 MCHC 32.6 RDW 16.7 H Plt Count 137 L Carbonic Acid HCO3/H2CO3 Ratio ABG pH ABG pCO2 ABG pO2 ABG HCO3 ABG O2 Saturation ABG Base Excess VBG pH 7.30 VBG pCO2 103.0 H* VBG HCO3 49.2 H VBG Base Excess 18.9 FiO2 Sodium 139.5 Potassium 4.4 Chloride 92 L Carbon Dioxide 44 H* Anion Gap 4 L BUN 21 H Creatinine 0.50 L Est GFR ( Amer) > 60 Est GFR (Non-Af Amer) > 60 Glucose 93 Calcium 8.6 Magnesium 2.3 03/19/19 09:30 WBC RBC Hgb Hct MCV MCH MCHC RDW Plt Count Carbonic Acid 2.76 H HCO3/H2CO3 Ratio 15:1 ABG pH 7.28 L ABG pCO2 91.6 H* ABG pO2 127.7 H ABG HCO3 42.5 H ABG O2 Saturation 98.0 ABG Base Excess 11.3 VBG pH VBG pCO2 VBG HCO3 VBG Base Excess FiO2 45% Sodium Potassium Chloride Carbon Dioxide Anion Gap BUN Creatinine Est GFR ( Amer) Est GFR (Non-Af Amer) Glucose Calcium Magnesium 03/16/19 03/16/19 03/16/19 20:45 20:45 21:01 Creatine Kinase 23 L CK-MB (CK-2) Cancelled 0.56 Troponin I Cancelled 0.013 NT-Pro-B Natriuret Pep Cancelled Impressions: Chest X-Ray 03/16/19 20:42 IMPRESSION: Interval development of alveolar infiltrate in the right lung base concerning for pneumonia Chronic-appearing changes in the right upper lobe and around the right hilum Chest/Abdomen CTA 03/16/19 20:53 IMPRESSION: Negative for pulmonary embolus, thoracic aortic aneurysm, or dissection. Severe emphysematous changes. Bibasilar bronchiectasis and scarring. Consolidative change posterior right lung base TECHNICAL DOCUMENTATION: Quality ID # 436: Final reports with documentation of one or more dose reduction techniques (e.g., Automated exposure control, adjustment of the mA and/or kV according to patient size, use of iterative reconstruction technique) copyright 2011 [employer]- All Rights Reserved Assessment and Plan - Diagnosis (1) Acute and chronic respiratory failure with hypercapnia Is this a current diagnosis for this admission?: Yes Plan: She was home for a week she was taking her morphine and not using her trilogy machine. I am going to discontinue her morphine. With her level of CO2 retention is harmful for her. Any narcotics or sedating medications are going to be harmful for her. We had to put her back on BiPAP this morning. (2) COPD exacerbation Is this a current diagnosis for this admission?: Yes Plan: Continue steroids and bronchodilators. I actually think the primary reason for her hospitalization with the fact she did not use her trilogy machine and was taken her narcotics. (3) Hypothyroidism Qualifiers: Hypothyroidism type: acquired Qualified Code(s): E03.9 - Hypothyroidism, unspecified Is this a current diagnosis for this admission?: Yes Plan: Continue current thyroid replacement therapy. - Time Time Spent with patient: 15-24 minutes
[2019-03-19] MEDS: GABAPENTIN 100 MG CAPSULE PO SCH (22:04)
[2019-03-19] MEDS: ROPINIROLE HCL 1 MG TABLET PO SCH (22:04)
[2019-03-20] MEDS: IBUPROFEN 800 MG TABLET PO PRN ×2 (00:23→09:37)
[2019-03-20] MEDS: IPRATROPIUM BROMIDE 0.02% NEB 0.5 MG/2.5 ML AMPUL NEB SCH ×4 (00:27→20:00)
[2019-03-20] MEDS: LEVALBUTEROL HCL NEB 1.25 MG/3 ML AMPUL NEB SCH ×4 (00:27→20:00)
[2019-03-20 00:54] LABS: ARTERIAL BLOOD BASE EXCESS 17.9 mmol/L; ARTERIAL BLOOD FIO2 50%; ARTERIAL BLOOD H2CO3 3.39 mmol/L (1.05-1.35); ARTERIAL BLOOD HCO3 49.5 mmol/L (20-24); ARTERIAL BLOOD O2 SATURATION 84.9 % (94-98); ARTERIAL BLOOD PH 7.26 (7.35-7.45); ARTERIAL BLOOD PO2 60.6 mmHg (80-100)
[2019-03-20 01:00] LABS: ARTERIAL BLOOD PCO2 112.6 mmHg (35-45)
[2019-03-20] MEDS: MEROPENEM 1 GM in NORMAL SALINE 50 ML IV SCH ×3 (02:18→18:29)
[2019-03-20] MEDS: LEVALBUTEROL HCL NEB 0.63 MG/3 ML AMPUL NEB PRN (04:27)
[2019-03-20] MEDS ORDERED: PROPOFOL 1,000 MG/100 ML INFUS..BTL IV ONE ×2 (05:38→06:14)
[2019-03-20] MEDS ORDERED: CHLORPROMAZINE HCL INJ 25 MG/1 ML AMPULE IV PRN (06:09)
[2019-03-20] MEDS ORDERED: DIAZEPAM INJ 10 MG/2 ML DISP.SYRIN IV PRN (06:09)
[2019-03-20] MEDS ORDERED: MORPHINE SULFATE 10 MG/ML INJ IV PRN ×4 (06:09→06:17)
[2019-03-20] MEDS: PROPOFOL 1,000 MG/100 ML INFUS..BTL IV PRN ×4 (06:15→22:13)
[2019-03-20] MEDS ORDERED: DEXTROSE 40% GEL 15 GM TUBE PO PRN ×2 (06:28)
[2019-03-20] MEDS ORDERED: DEXTROSE 50%-WATER 25 GM/50 ML DISP.SYRIN IV PRN ×2 (06:28)
[2019-03-20] MEDS ORDERED: GLUCAGON,HUMAN RECOMB 1 MG INJ SUBCUT PRN (06:28)
[2019-03-20] MEDS ORDERED: PHARMACY COMMUNICATION ORDER MC NR (06:30)
[2019-03-20] MEDS ORDERED: NORMAL SALINE INJ/PF 0.9% 10 ML SDV IV PRN (06:31)
--- NOTE | 2019-03-20 06:49 | OPERATIVE REPORT E ---
Operative Report NAME: AUDIE KIMBLE : 1960 AGE: 58Y DATE OF SURGERY: 03/20/2019 ROOM: [facility] PREOPERATIVE DIAGNOSIS: POOR PERIPHERAL VEINS FOR IV ACCESS AND PATIENT JUST TRANSFERRED TO ICU ON A RAPID RESPONSE AND NOTED TO BE HYPOTENSIVE. POSTOPERATIVE DIAGNOSIS: POOR PERIPHERAL VEINS FOR IV ACCESS AND PATIENT JUST TRANSFERRED TO ICU ON A RAPID RESPONSE AND NOTED TO BE HYPOTENSIVE. OPERATION: Placement of right internal jugular vein triple-lumen catheter under ultrasound guidance. SURGEON: KATHY BERGMAN M.D. ANESTHESIA: Local, MAC. INDICATION: This 58-year-old female just transferred to ICU from the floor for Rapid Response. The patient is hypotensive and intubated. DESCRIPTION OF THE PROCEDURE: The patient placed in a slight Trendelenburg position and the right neck prepped and draped in the usual sterile fashion. The patient was given an extra dose of propofol. The internal jugular vein was identified and subsequently local anesthesia infiltrated in the skin and the vein subsequently punctured and aspirated dark blood in nonpulsatile flow. Guidewire passed through the needle towards the area of the superior vena cava and the needled pulled out. The puncture site was then dilated. A triple-lumen catheter inserted through the guidewire to a distance of about 18 cm. The guidewire was then removed, and all the ports aspirated blood easily and instilled saline easily. Next, the catheter was then anchored to the skin with 3-0 silk. There was a little leak from the dilatation and incision and, therefore, another suture was placed to control the oozing. This controlled the oozing nicely. Next, a Biopatch placed at the insertion site and a transparent sterile dressing placed over the Biopatch and catheter. Chest x-ray will be obtained for placement. DICTATING PHYSICIAN: KATHY BERGMAN M.D. [id number] PHY#: [id number] ID: [id number] JOB#: [id number] ACCT: [id number] cc:KATHY BERGMAN M.D. >
[2019-03-20] MEDS: MIDAZOLAM HCL 50 MG/100 ML RTUINJ IV PRN ×2 (06:55→16:23)
[2019-03-20] MEDS: NORMAL SALINE 1000 ML 1,000 ML IV PRN ×4 (07:00→22:12)
[2019-03-20 07:04] LABS: ARTERIAL BLOOD H2CO3 2.25 mmol/L (1.05-1.35); ARTERIAL BLOOD HCO3 46.7 mmol/L (20-24); ARTERIAL BLOOD O2 SATURATION 91.1 % (94-98); ARTERIAL BLOOD PH 7.41 (7.35-7.45); ARTERIAL BLOOD PO2 62.6 mmHg (80-100)
[2019-03-20 07:12] LABS: ARTERIAL BLOOD FIO2 60%
[2019-03-20 07:14] LABS: ARTERIAL BLOOD PCO2 74.7 mmHg (35-45)
--- NOTE | 2019-03-20 07:14 | RADIOLOGY REPORT (SQ) ---
EXAM DESCRIPTION: X-ray single view chest. CLINICAL HISTORY: 58 years Female, TLC, ETT placement COMPARISON: Prior chest x-ray and CTA chest performed on 03/16/2019 TECHNIQUE: Single portable x-ray view of the chest performed on 03/20/2019 at 6:36 AM FINDINGS: The lungs are hyperinflated. There is improving airspace opacification in the right inferior hemithorax and worsening patchy airspace disease in the right perihilar region. There is mild patchy parenchymal opacification in the left perihilar region. There is no evidence of a pneumothorax. The cardiac silhouette is normal in size and configuration. The mediastinal contours are normal. No acute osseous abnormality is identified. No focal soft tissue abnormalities are seen. Lines and tubes: An endotracheal tube has been placed and terminates at the level of the aortic knob above the cuco. A right IJ central venous catheter is present and terminates in the region of the superior vena cava. IMPRESSION: 1. Improving aeration in the right inferior hemithorax but worsening aeration in the right perihilar region concerning for pneumonia. 2. Patchy parenchymal opacification in the left perihilar region also suspicious for an infectious or inflammatory infiltrate. 3. Underlying emphysema. 4. Life support lines and tubes in grossly satisfactory position.
[2019-03-20] MEDS ORDERED: BUDESONIDE NEB 0.5 MG/2 ML AMPUL NEB SCH (08:00)
--- NOTE | 2019-03-20 08:31 | Progress Note ---
Provider Note Provider Note: Critical care note: 03/20/2019 Critical care onset: 0530 Critical care problem: Worsening respiratory failure. Patient was seen in a rapid response and was noted to have significantly increased dyspnea. Her dyspnea continued to worsen overnight as respiratory therapy continue to increase her oxygen, causing her to become progressively more hypercapnic. The patient finally decided that she wished to resend her decision to be DNR/DNI and will need to be a full code and be intubated even though she fully understands that she may well never be able to come off of the ventilator due to the severity of her COPD. She discussed this over the phone with her and also with myself at bedside. On exam she was found to have moderate wheezing and moderately prolonged expiratory phases in all malik with severe tachypnea noted. She was subsequently taken to the ICU where she was intubated and started on mechanical ventilation at my direction. Critical care and: 0605 Total critical care [id number] time: 19 minutes
[2019-03-20] MEDS: HEPARIN SOD (PORCINE) 5,000 UNIT/ML 1 ML SYRINGE SUBCUT SCH ×3 (08:41→21:25)
[2019-03-20] MEDS: ACETYLCYSTEINE 20% SOLN 800 MG/4 ML VIAL.NEB NEB SCH ×2 (08:44→19:59)
[2019-03-20] MEDS ORDERED: METOPROLOL TARTRATE PF/INJ 5 MG/5 ML SDV IV ONE (09:19)
[2019-03-20] MEDS: ACETAMINOPHEN 325 MG TABLET NG PRN (09:36)
[2019-03-20] MEDS: FAMOTIDINE 20 MG TABLET NG SCH ×2 (09:37→21:26)
[2019-03-20] MEDS: DOXYCYCLINE HYCLATE 100 MG TABLET PO SCH (09:37)
[2019-03-20] MEDS: MONTELUKAST SODIUM 10 MG TABLET NG SCH (09:37)
[2019-03-20] MEDS: LEVOTHYROXINE SODIUM 0.025 MG TABLET PO SCH (09:39)
[2019-03-20] MEDS: DOCUSATE SODIUM 100 MG/10 ML UDC NG SCH ×2 (09:39→18:29)
[2019-03-20] MEDS ORDERED: SUCCINYLCHOLINE CHLORIDE INJ 200 MG/10 ML VIAL ONE (09:48)
[2019-03-20] MEDS ORDERED: NORMAL SALINE 1000 ML 1,000 ML IV ONE (11:36)
[2019-03-20] MEDS ORDERED: METOPROLOL TARTRATE PF/INJ 5 MG/5 ML SDV IV PRN (11:37)
[2019-03-20] MEDS ORDERED: MAG HYDROX/AL HYDROX/SIMETH SUSP 30 ML UDCUP NG PRN (12:30)
[2019-03-20] MEDS ORDERED: VANCOMYCIN HCL 0 MG in DEXTROSE 5%-WATER 250 ML IV NR (13:15)
--- NOTE | 2019-03-20 13:31 | PDOC PROGRESS REPORT ---
Subjective Progress Note for:: 03/20/19 Subjective:: Patient is intubated and sedated. She required mechanical ventilation last evening after she changed her CODE STATUS from DNR to full code during an acute episode of shortness of breath. She is currently intubated but is exhibiting tachycardia and low blood pressure. Reason For Visit: ACUTE RESPIRATORY FAILURE With hypoxemia and hypercapnia Tachycardia Hypotension Chronic obstructive pulmonary disease Pneumonia Physical Exam Vital Signs: Temp Pulse Resp BP Pulse Ox 100.6 F H 111 H 22 H 78/49 L 93 03/20/19 12:01 03/20/19 12:00 03/20/19 12:01 03/20/19 12:00 03/20/19 12:01 Intake & Output 03/19/19 03/20/19 03/21/19 06:59 06:59 06:59 Intake Total 1633 1351 39 Output Total 3050 750 220 Balance -1417 601 -181 Weight 68.7 kg General appearance: PRESENT: well-developed, other - Intubated and sedated Head exam: PRESENT: atraumatic, normocephalic Eye exam: PRESENT: conjunctiva pink, other - There was resistance to trying to open her eyes. ABSENT: scleral icterus Ear exam: PRESENT: normal external ear exam Mouth exam: PRESENT: other - Endotracheal tube and nasogastric tube in place Respiratory exam: PRESENT: rhonchi - Faint rhonchi on the right, symmetrical. ABSENT: rales, wheezes - He did not appreciate any wheezes Cardiovascular exam: PRESENT: RRR, +S1, +S2, tachycardia GI/Abdominal exam: PRESENT: normal bowel sounds, soft. ABSENT: distended, tenderness Rectal exam: PRESENT: deferred Gentrourinary exam: PRESENT: indwelling catheter Extremities exam: ABSENT: pedal edema Musculoskeletal exam: PRESENT: normal inspection Neurological exam: ABSENT: awake Psychiatric exam: ABSENT: agitated Focused psych exam: ABSENT: restlessness Results Laboratory Results: 03/19/19 05:57 03/19/19 05:57 03/20/19 03/20/19 00:25 06:53 Carbonic Acid 3.39 H 2.25 H HCO3/H2CO3 Ratio 14:1 20:1 ABG pH 7.26 L 7.41 ABG pCO2 112.6 H* 74.7 H* ABG pO2 60.6 L 62.6 L ABG HCO3 49.5 H 46.7 H ABG O2 Saturation 84.9 L 91.1 L ABG Base Excess 17.9 19.0 FiO2 50% 60% 03/16/19 03/16/19 03/16/19 20:45 20:45 21:01 Creatine Kinase 23 L CK-MB (CK-2) Cancelled 0.56 Troponin I Cancelled 0.013 NT-Pro-B Natriuret Pep Cancelled Impressions: Chest/Abdomen CTA 03/16/19 20:53 IMPRESSION: Negative for pulmonary embolus, thoracic aortic aneurysm, or dissection. Severe emphysematous changes. Bibasilar bronchiectasis and scarring. Consolidative change posterior right lung base TECHNICAL DOCUMENTATION: Quality ID # 436: Final reports with documentation of one or more dose reduction techniques (e.g., Automated exposure control, adjustment of the mA and/or kV according to patient size, use of iterative reconstruction technique) copyright 2011 [employer]- All Rights Reserved Chest X-Ray 03/20/19 00:00 IMPRESSION: 1. Improving aeration in the right inferior hemithorax but worsening aeration in the right perihilar region concerning for pneumonia. 2. Patchy parenchymal opacification in the left perihilar region also suspicious for an infectious or inflammatory infiltrate. 3. Underlying emphysema. 4. Life support lines and tubes in grossly satisfactory position. Assessment and Plan - Diagnosis (1) Acute on chronic respiratory failure with hypoxia and hypercapnia Is this a current diagnosis for this admission?: Yes Plan: Patient will be treated with BiPAP and supplemental oxygen as required. Her ABGs will be followed on a regular basis and also repeated as needed. Patient may require intubation if her hypercapnia cannot be resolved with BiPAP. Pulmonary consultation will be obtained when available. March 20, 2019-the patient became quite hypercapnic and hypoxic and required rapid respiratory team to assess and subsequent intubation and transferred to the intensive care unit. The patient has been intubated on multiple occasions previously. She had been a DNR and now she changed her status last night. Chest x-ray reveals bilateral pneumonia with right worse than left. She will be on scheduled and as needed nebulizers including Xopenex, ipratropium and Pulmicort. Pulmonology will be seeing the patient as well. (2) COPD exacerbation Is this a current diagnosis for this admission?: Yes Plan: Patient be treated with aggressive pulmonary toilet utilizing nebulized Xopenex, Pulmicort, Atrovent and Mucomyst. She will be treated with intravenous Solu- Medrol and will be provided supplemental oxygen and advanced airway pressure support as required to maintain adequate oxygenation. Consideration for possible intubation and ventilation will be given. March 20, 2019-patient has end-stage COPD. She is supposed to be wearing her trilogy at home. Family reports that she has been wearing it however admission records indicate that she may have not been. They do confirm that she does get increased air in the stomach when using the machine. Family reports that her activity levels have been decreased. She in fact can become dyspneic just when eating. We will continue the aggressive regimen and monitor for progress. (3) Aspiration pneumonia of both lungs Qualifiers: Aspiration pneumonia type: unspecified Lung location: unspecified part of lung Qualified Code(s): J69.0 - Pneumonitis due to inhalation of food and vomit Is this a current diagnosis for this admission?: Yes Plan: March 20, 2019-had a lengthy discussion with the patient's and son. The patient had a swallow study in the past. It revealed aspiration. I do not have the actual study and so I am unable to determine which phase of the swallow was mostly affected. They report that the patient coughed with thin liquids and had no cough with solid boluses of food. She did have difficulty processing uncut meats. She is not using a thickened products. I explained that this accounts for the significantly increased consolidation on the right versus the left. We also discussed the fact that this likely contributes to her multiple flares of "breathing problems ". She does have severe COPD however ongoing aspiration certainly would complicate things to a significant degree. Because of this history I will stop the doxycycline and add vancomycin to the meropenem to cover broad-spectrum with aspiration pneumonia as the primary focus. Post extubation she should have a modified barium swallow with speech therapy and significant education on diet modifications as well as swallowing techniques. (4) Dysphagia Qualifiers: Dysphagia type: unspecified Qualified Code(s): R13.10 - Dysphagia, unspecified Is this a current diagnosis for this admission?: Yes Plan: March 20, 2019-as noted above the patient was diagnosed with dysphagia but evidently, according to the family, she has never worked with a speech therapist. She has never received any diet recommendations. In addition, she fatigues easily just from eating and this can increase the risk of aspiration. Post extubation the patient should have a new evaluation and establish a treatment plan. (5) Chronic diastolic CHF (congestive heart failure), NYHA class 1 Is this a current diagnosis for this admission?: Yes Plan: March 20, 2019-the patient does have chronic diastolic congestive heart failure. I do not believe it is a factor for this illness. Patient has had a negative fluid balance so far during this hospitalization and the patient's family reports that she will drink a 6 pack of Pepsi cola daily but minimal water. I will start IV fluids. I will increase the PEG tube flushes to supply more free water and we will likely initiate tube feedings tomorrow. Her albumin is normal and she should have adequate perfusion pressure once this illness passes. (6) Hypotension Qualifiers: Hypotension type: other hypotension type Qualified Code(s): I95.89 - Other hypotension Is this a current diagnosis for this admission?: Yes Plan: Post intubation the patient exhibited low blood pressure with tachycardia. The patient does have pneumonia but has been on antibiotics for 2 days. The patient was placed on Main-Synephrine. I believe some of the hypotension is related to volume contraction. This would also partly explain the alkalosis. I will institute IV normal saline at 150 mg an hour and monitor her intake and output. We will also adjust free water flushes through the nasogastric tube to provide increased free water. We will try and wean her off of her pressors as soon as possible. - Time Total Critical Time (Minutes): 60 Medications reviewed and adjusted accordingly: Yes
[2019-03-20] MEDS: METHYLPREDNISOLONE INJ 40 MG/1 ML SDV IV SCH ×2 (14:25→21:25)
[2019-03-20] MEDS ORDERED: PHENYLEPHRINE HCL INJ/PF 10 MG/1 ML SDV ONE (14:29)
[2019-03-20] MEDS: DEXTROSE 5%-WATER 250 ML with PHENYLEPHRINE HCL 40 MG IV PRN ×2 (14:40)
[2019-03-20] MEDS: ROFLUMILAST 500 MCG TABLET NG SCH (16:29)
[2019-03-20 17:19] LABS: ARTERIAL BLOOD BASE EXCESS 6.5 mmol/L; ARTERIAL BLOOD H2CO3 1.83 mmol/L (1.05-1.35); ARTERIAL BLOOD HCO3 33.4 mmol/L (20-24); ARTERIAL BLOOD O2 SATURATION 93.9 % (94-98); ARTERIAL BLOOD PCO2 60.7 mmHg (35-45); ARTERIAL BLOOD PH 7.36 (7.35-7.45); ARTERIAL BLOOD PO2 73.9 mmHg (80-100); ARTERIAL BLOOD TOTAL CO2 35.2 mmol/L (21-25)
[2019-03-20] MEDS: VANCOMYCIN HCL 1,000 MG in DEXTROSE 5%-WATER 250 ML IV SCH (18:29)
[2019-03-20] MEDS: BUDESONIDE NEB 0.5 MG/2 ML AMPUL NEB SCH (20:00)
[2019-03-20] MEDS: GABAPENTIN 100 MG CAPSULE NG SCH (21:25)
[2019-03-20] MEDS: ROPINIROLE HCL 1 MG TABLET NG SCH (21:26)
[2019-03-20] MEDS ORDERED: DOXYCYCLINE HYCLATE 100 MG in DEXTROSE 5%-WATER 250 ML IV SCH (22:00)
[2019-03-21] MEDS: MIDAZOLAM HCL 50 MG/100 ML RTUINJ IV PRN ×3 (00:07→17:33)
[2019-03-21] MEDS: MEROPENEM 1 GM in NORMAL SALINE 50 ML IV SCH ×3 (01:02→17:33)
[2019-03-21] MEDS: DEXTROSE 5%-WATER 250 ML with PHENYLEPHRINE HCL 40 MG IV PRN ×2 (01:03)
[2019-03-21] MEDS: LEVALBUTEROL HCL NEB 1.25 MG/3 ML AMPUL NEB SCH ×4 (01:32→21:00)
[2019-03-21] MEDS: IPRATROPIUM BROMIDE 0.02% NEB 0.5 MG/2.5 ML AMPUL NEB SCH ×4 (01:32→21:00)
[2019-03-21 04:33] LABS: ARTERIAL BLOOD BASE EXCESS 7.4 mmol/L; ARTERIAL BLOOD H2CO3 1.71 mmol/L (1.05-1.35); ARTERIAL BLOOD HCO3 33.5 mmol/L (20-24); ARTERIAL BLOOD O2 SATURATION 98.2 % (94-98); ARTERIAL BLOOD PCO2 56.7 mmHg (35-45); ARTERIAL BLOOD PH 7.39 (7.35-7.45); ARTERIAL BLOOD PO2 119.3 mmHg (80-100); ARTERIAL BLOOD TOTAL CO2 35.2 mmol/L (21-25)
[2019-03-21 04:45] LABS: HEMOGLOBIN 8.5 g/dL (12.0-15.5); MEAN CORPUSCULAR HEMOGLOBIN 28.9 pg (27.0-33.4); MEAN CORPUSCULAR HGB CONC 32.7 g/dL (32.0-36.0); MEAN CORPUSCULAR VOLUME 88 fl (80-97); PLATELET COUNT 107 10^3/uL (150-450); RED BLOOD COUNT 2.94 10^6/uL (3.72-5.28); WHITE BLOOD COUNT 6.3 10^3/uL (4.0-10.5)
[2019-03-21 04:58] LABS: ANION GAP 6 (5-19); BLOOD UREA NITROGEN 18 mg/dL (7-20); CALCIUM 7.8 mg/dL (8.4-10.2); CARBON DIOXIDE 35 mmol/L (22-30); CHLORIDE 100 mmol/L (98-107); GLUCOSE 144 mg/dL (75-110); PHOSPHORUS 2.6 mg/dL (2.5-4.5); POTASSIUM 4.1 mmol/L (3.6-5.0); SODIUM 140.5 mmol/L (137-145)
[2019-03-21] MEDS: METHYLPREDNISOLONE INJ 40 MG/1 ML SDV IV SCH ×3 (04:59→21:20)
[2019-03-21] MEDS: HEPARIN SOD (PORCINE) 5,000 UNIT/ML 1 ML SYRINGE SUBCUT SCH ×3 (04:59→21:20)
[2019-03-21] MEDS: PROPOFOL 1,000 MG/100 ML INFUS..BTL IV PRN ×3 (05:00→17:32)
[2019-03-21] MEDS: NORMAL SALINE 1000 ML 1,000 ML IV PRN ×3 (05:00→22:43)
[2019-03-21 05:01] LABS: ABSOLUTE LYMPHOCYTES# (MANUAL) 0.1 10^3/uL (0.5-4.7); ABSOLUTE MONOCYTES # (MANUAL) 0.1 10^3/uL (0.1-1.4); ABSOLUTE NEUTROPHILS# (MANUAL) 6.2 10^3/uL (1.7-8.2); BAND NEUTROPHILS % (MANUAL) 4 % (3-5); BASOPHILS % (MANUAL) 0 % (0-2); EOSINOPHILS % (MANUAL) 0 % (0-6); LYMPHOCYTES % (MANUAL) 1 % (13-45); MONOCYTES % (MANUAL) 1 % (3-13); PLATELET COMMENT DECREASED; SEGMENTED NEUTROPHILS % (MAN) 94 % (42-78); TOTAL CELLS COUNTED 100
[2019-03-21 05:02] LABS: ANISOCYTOSIS 1+; HYPOCHROMASIA SLIGHT; STOMATOCYTES SLIGHT
[2019-03-21] MEDS: VANCOMYCIN HCL 1,000 MG in DEXTROSE 5%-WATER 250 ML IV SCH ×2 (05:02→17:33)
[2019-03-21] MEDS: LEVOTHYROXINE SODIUM 0.025 MG TABLET NG SCH (05:03)
[2019-03-21 05:04] LABS: PREALBUMIN 13.2 mg/dL (17.6-36.0)
--- NOTE | 2019-03-21 08:35 | RADIOLOGY REPORT (SQ) ---
EXAM DESCRIPTION: CHEST SINGLE VIEW COMPLETED DATE/TIME: 03/21/2019 6:36 am REASON FOR STUDY: Respiratory failure COMPARISON: 03/28/2019. EXAM PARAMETERS: NUMBER OF VIEWS: One view. TECHNIQUE: Single frontal radiographic view of the chest acquired. RADIATION DOSE: NA LIMITATIONS: None. FINDINGS: LUNGS AND PLEURA: Chronic interstitial changes. Slightly improved aeration in the right l emmett. MEDIASTINUM AND HILAR STRUCTURES: No masses. Contour normal. HEART AND VASCULAR STRUCTURES: Heart normal in size. Normal vasculature. BONES: No acute findings. HARDWARE: Stable endotracheal tube, nasogastric tube, central line. OTHER: No other significant finding. IMPRESSION: SLIGHTLY IMPROVED AERATION. TECHNICAL DOCUMENTATION: JOB ID: [id number] [employer]- All Rights Reserved Reading location - IP/workstation name: [email or web address]
[2019-03-21] MEDS: BUDESONIDE NEB 0.5 MG/2 ML AMPUL NEB SCH ×2 (08:42→21:00)
[2019-03-21] MEDS: ACETYLCYSTEINE 20% SOLN 800 MG/4 ML VIAL.NEB NEB SCH ×2 (08:43→21:00)
[2019-03-21] MEDS ORDERED: (PENDING PHARMACY ID) (Roflumilast [Daliresp 500 Mcg Tablet] 500 MCG) NG SCH (10:00)
[2019-03-21] MEDS: DOCUSATE SODIUM 100 MG/10 ML UDC NG SCH ×2 (11:37→17:32)
[2019-03-21] MEDS: MONTELUKAST SODIUM 10 MG TABLET NG SCH (11:37)
[2019-03-21] MEDS: CETIRIZINE 10 MG TABLET NG SCH (11:38)
[2019-03-21] MEDS: FAMOTIDINE 20 MG TABLET NG SCH ×2 (11:38→21:20)
[2019-03-21] MEDS: ROFLUMILAST 500 MCG TABLET NG SCH (11:38)
[2019-03-21] MEDS: GABAPENTIN 100 MG CAPSULE NG SCH (21:20)
[2019-03-21] MEDS: ROPINIROLE HCL 1 MG TABLET NG SCH (21:20)
[2019-03-22] MEDS: MEROPENEM 1 GM in NORMAL SALINE 50 ML IV SCH ×2 (01:30→10:34)
[2019-03-22] MEDS: PROPOFOL 1,000 MG/100 ML INFUS..BTL IV PRN ×4 (01:30→21:00)
[2019-03-22] MEDS: LEVALBUTEROL HCL NEB 1.25 MG/3 ML AMPUL NEB SCH ×4 (02:20→22:10)
[2019-03-22] MEDS: IPRATROPIUM BROMIDE 0.02% NEB 0.5 MG/2.5 ML AMPUL NEB SCH ×4 (02:20→22:10)
[2019-03-22 05:29] LABS: ARTERIAL BLOOD BASE EXCESS 8.5 mmol/L; ARTERIAL BLOOD FIO2 45%; ARTERIAL BLOOD HCO3 34.5 mmol/L (20-24); ARTERIAL BLOOD O2 SATURATION 93.6 % (94-98); ARTERIAL BLOOD PCO2 56.5 mmHg (35-45); ARTERIAL BLOOD PO2 69.5 mmHg (80-100); ARTERIAL BLOOD TOTAL CO2 36.3 mmol/L (21-25)
[2019-03-22] MEDS: NORMAL SALINE 1000 ML 1,000 ML IV PRN ×2 (05:29→14:41)
[2019-03-22] MEDS: MIDAZOLAM HCL 50 MG/100 ML RTUINJ IV PRN ×2 (05:29→21:04)
[2019-03-22] MEDS: HEPARIN SOD (PORCINE) 5,000 UNIT/ML 1 ML SYRINGE SUBCUT SCH ×3 (05:30→21:04)
[2019-03-22] MEDS: METHYLPREDNISOLONE INJ 40 MG/1 ML SDV IV SCH ×3 (05:30→21:06)
[2019-03-22] MEDS: VANCOMYCIN HCL 1,000 MG in DEXTROSE 5%-WATER 250 ML IV SCH (05:30)
[2019-03-22] MEDS: LEVOTHYROXINE SODIUM 0.025 MG TABLET NG SCH (05:30)
[2019-03-22 05:44] LABS: HEMATOCRIT 26.2 % (36.0-47.0); HEMOGLOBIN 8.6 g/dL (12.0-15.5); MEAN CORPUSCULAR HGB CONC 32.8 g/dL (32.0-36.0); MEAN CORPUSCULAR VOLUME 88 fl (80-97); PLATELET COUNT 119 10^3/uL (150-450); RED BLOOD COUNT 2.96 10^6/uL (3.72-5.28); RED CELL DISTRIBUTION WIDTH 16.9 % (11.5-14.0); WHITE BLOOD COUNT 6.9 10^3/uL (4.0-10.5)
[2019-03-22 05:52] LABS: BLOOD UREA NITROGEN 14 mg/dL (7-20); CALCIUM 8.1 mg/dL (8.4-10.2); GLUCOSE 119 mg/dL (75-110); POTASSIUM 4.1 mmol/L (3.6-5.0)
[2019-03-22 06:06] LABS: CARBON DIOXIDE 37 mmol/L (22-30); CHLORIDE 103 mmol/L (98-107); SODIUM 143.2 mmol/L (137-145)
[2019-03-22 06:13] LABS: ANION GAP 3 (5-19)
[2019-03-22 06:43] LABS: VANCOMYCIN,TROUGH 10.1 ug/mL (5.0-20.0)
--- NOTE | 2019-03-22 07:48 | RADIOLOGY REPORT (SQ) ---
EXAM DESCRIPTION: XR CHEST 1 VIEW COMPLETED DATE/TME: 03/22/2019 06:00 CLINICAL HISTORY: 58 years Female, pna/resp failure COMPARISON: One day prior. NUMBER OF VIEWS/TECHNIQUE: 1/AP FINDINGS: Moderate mixed airspace and interstitial opacities. Small right basilar opacity-effusion.Adequate appearing endotracheal tube. Adequate appearing enteric tube partially obscured. Adequate appearing right jugular central line. Normal cardiac silhouette size. No pneumothorax. Stable bony thorax. IMPRESSION: No significant change.
[2019-03-22 07:53] LABS: ABSOLUTE LYMPHOCYTES# (MANUAL) 0.1 10^3/uL (0.5-4.7); ABSOLUTE NEUTROPHILS# (MANUAL) 6.8 10^3/uL (1.7-8.2); BAND NEUTROPHILS % (MANUAL) 5 % (3-5); BASOPHILS % (MANUAL) 0 % (0-2); EOSINOPHILS % (MANUAL) 0 % (0-6); LYMPHOCYTES % (MANUAL) 1 % (13-45); MONOCYTES % (MANUAL) 0 % (3-13); SEGMENTED NEUTROPHILS % (MAN) 94 % (42-78); TOTAL CELLS COUNTED 100
[2019-03-22 07:54] LABS: ANISOCYTOSIS 1+; HYPOCHROMASIA 2+
[2019-03-22 07:55] LABS: PLATELET COMMENT DECREASED
[2019-03-22] MEDS: ACETYLCYSTEINE 20% SOLN 800 MG/4 ML VIAL.NEB NEB SCH ×2 (08:42→22:10)
[2019-03-22] MEDS: BUDESONIDE NEB 0.5 MG/2 ML AMPUL NEB SCH ×2 (08:42→22:10)
[2019-03-22] MEDS: CETIRIZINE 10 MG TABLET NG SCH (10:34)
[2019-03-22] MEDS: FAMOTIDINE 20 MG TABLET NG SCH ×2 (10:34→21:06)
[2019-03-22] MEDS: DOCUSATE SODIUM 100 MG/10 ML UDC NG SCH ×2 (10:34→17:35)
[2019-03-22] MEDS: MONTELUKAST SODIUM 10 MG TABLET NG SCH (10:34)
[2019-03-22] MEDS: ROFLUMILAST 500 MCG TABLET NG SCH (10:34)
[2019-03-22] MEDS: PIPERACILLIN SODIUM/TAZOBACTAM 3.375 GM in NORMAL SALINE 100 ML IV SCH ×3 (14:42→23:10)
[2019-03-22] MEDS: VANCOMYCIN HCL 1,500 MG in DEXTROSE 5%-WATER 250 ML IV SCH (17:35)
--- NOTE | 2019-03-22 18:31 | PDOC PROGRESS REPORT ---
Subjective Progress Note for:: 03/22/19 Subjective:: Patient care today. ICU course and chart reviewed. This is a 49-year-old female past medical history of CAD with severe COPD who initially presented with increasing shortness of breath presented with increasing shortness of breath on 03/07. She was noted to have a right lower lobe pneumonia was also in COPD exacerbation. She will be on BiPAP but developed increasing shortness of breath and hypoxia on 03/19. She change her CODE STATUS from DNR to full code and was subsequently intubated. No acute event overnight. Patient is currently sedated and intubated. 5% FiO2. She has minimal secretions from the ET. Reason For Visit: ACUTE RESPIRATORY FAILURE WITH HYPOXIA AND Physical Exam Vital Signs: Temp Pulse Resp BP Pulse Ox 99.7 F 104 H 22 H 101/59 L 97 03/22/19 12:00 03/22/19 12:00 03/22/19 12:00 03/22/19 12:00 03/22/19 12:00 Intake & Output 03/21/19 03/22/19 03/23/19 06:59 06:59 06:59 Intake Total 5571 4075 350 Output Total 1037 2220 620 Balance 4534 1855 -270 Weight 159 lb 2.78 oz 165 lb 12.602 oz General appearance: PRESENT: other - Intubated, sedated Head exam: PRESENT: atraumatic, normocephalic Eye exam: PRESENT: conjunctiva pink, EOMI, PERRLA. ABSENT: scleral icterus Ear exam: PRESENT: normal external ear exam Mouth exam: PRESENT: moist, tongue midline Neck exam: ABSENT: carotid bruit, JVD, lymphadenopathy, thyromegaly Respiratory exam: PRESENT: rhonchi. ABSENT: rales, wheezes Cardiovascular exam: PRESENT: RRR. ABSENT: diastolic murmur, rubs, systolic murmur Pulses: PRESENT: normal dorsalis pedis pul GI/Abdominal exam: PRESENT: normal bowel sounds, soft. ABSENT: distended, guarding, mass, organolmegaly, rebound, tenderness Rectal exam: PRESENT: deferred Neurological exam: PRESENT: other - Intubated, sedated Results Laboratory Results: 03/22/19 04:19 03/22/19 04:19 03/22/19 03/22/19 03/22/19 04:19 04:19 04:19 WBC 6.9 RBC 2.96 L Hgb 8.6 L Hct 26.2 L MCV 88 MCH 29.0 MCHC 32.8 RDW 16.9 H Plt Count 119 L Seg Neutrophils % Not Reportable Lymphocytes % Not Reportable Monocytes % Not Reportable Eosinophils % Not Reportable Basophils % Not Reportable Absolute Neutrophils Not Reportable Absolute Lymphocytes Not Reportable Absolute Monocytes Not Reportable Absolute Eosinophils Not Reportable Absolute Basophils Not Reportable Carbonic Acid 1.70 H HCO3/H2CO3 Ratio 20:1 ABG pH 7.40 ABG pCO2 56.5 H ABG pO2 69.5 L ABG HCO3 34.5 H ABG O2 Saturation 93.6 L ABG Base Excess 8.5 FiO2 45% Sodium 143.2 Potassium 4.1 Chloride 103 Carbon Dioxide 37 H Anion Gap 3 L BUN 14 Creatinine 0.35 L Est GFR ( Amer) > 60 Est GFR (Non-Af Amer) > 60 Glucose 119 H Calcium 8.1 L Magnesium 2.2 03/20/19 06:05 Tracheal Aspirate Gram Stain - Final 03/17/19 04:56 Blood Blood Culture - Final NO GROWTH IN 5 DAYS 03/16/19 20:49 Blood Blood Culture - Final NO GROWTH IN 5 DAYS 03/16/19 03/16/19 03/16/19 20:45 20:45 21:01 Creatine Kinase 23 L CK-MB (CK-2) Cancelled 0.56 Troponin I Cancelled 0.013 NT-Pro-B Natriuret Pep Cancelled Impressions: Chest/Abdomen CTA 03/16/19 20:53 IMPRESSION: Negative for pulmonary embolus, thoracic aortic aneurysm, or dissection. Severe emphysematous changes. Bibasilar bronchiectasis and scarring. Consolidative change posterior right lung base TECHNICAL DOCUMENTATION: Quality ID # 436: Final reports with documentation of one or more dose reduction techniques (e.g., Automated exposure control, adjustment of the mA and/or kV according to patient size, use of iterative reconstruction technique) copyright 2011 [employer]- All Rights Reserved Chest X-Ray 03/22/19 06:00 IMPRESSION: No significant change. Assessment and Plan - Diagnosis (1) Acute on chronic respiratory failure with hypoxia and hypercapnia Is this a current diagnosis for this admission?: Yes Plan: Secondary to right lower lobe pneumonia and COPD exacerbation. Currently intubated and saturating well on 45% FiO2. (2) COPD exacerbation Is this a current diagnosis for this admission?: Yes Plan: Continue Solu-Medrol 40 mg IV every 8. Continue breathing treatments. (3) Pneumonia Qualifiers: Pneumonia type: due to unspecified organism Laterality: bilateral Is this a current diagnosis for this admission?: Yes Plan: Switch meropenem to Zosyn. - Time Time Spent with patient: 25-34 minutes
[2019-03-22] MEDS: ROPINIROLE HCL 1 MG TABLET NG SCH (21:05)
[2019-03-22] MEDS: IBUPROFEN 800 MG TABLET NG PRN (21:05)
[2019-03-22] MEDS: GABAPENTIN 100 MG CAPSULE NG SCH (21:06)
[2019-03-23] MEDS: LEVALBUTEROL HCL NEB 1.25 MG/3 ML AMPUL NEB SCH ×4 (01:55→20:25)
[2019-03-23] MEDS: IPRATROPIUM BROMIDE 0.02% NEB 0.5 MG/2.5 ML AMPUL NEB SCH ×4 (01:55→20:25)
[2019-03-23] MEDS: PROPOFOL 1,000 MG/100 ML INFUS..BTL IV PRN ×2 (02:15→10:21)
[2019-03-23] MEDS: NORMAL SALINE 1000 ML 1,000 ML IV PRN (04:30)
[2019-03-23 04:49] LABS: ARTERIAL BLOOD BASE EXCESS 9.4 mmol/L; ARTERIAL BLOOD H2CO3 1.56 mmol/L (1.05-1.35); ARTERIAL BLOOD HCO3 34.7 mmol/L (20-24); ARTERIAL BLOOD O2 SATURATION 93.7 % (94-98); ARTERIAL BLOOD PCO2 51.8 mmHg (35-45); ARTERIAL BLOOD PH 7.44 (7.35-7.45); ARTERIAL BLOOD PO2 67.1 mmHg (80-100); ARTERIAL BLOOD TOTAL CO2 36.3 mmol/L (21-25)
[2019-03-23 04:50] LABS: ARTERIAL BLOOD FIO2 40%
[2019-03-23 05:01] LABS: BLOOD UREA NITROGEN 24 mg/dL (7-20); CALCIUM 8.1 mg/dL (8.4-10.2); GLUCOSE 103 mg/dL (75-110)
[2019-03-23 05:07] LABS: CARBON DIOXIDE 37 mmol/L (22-30); CHLORIDE 103 mmol/L (98-107); SODIUM 142.5 mmol/L (137-145)
[2019-03-23 05:08] LABS: HEMATOCRIT 25.3 % (36.0-47.0); HEMOGLOBIN 8.2 g/dL (12.0-15.5); MEAN CORPUSCULAR HEMOGLOBIN 29.2 pg (27.0-33.4); MEAN CORPUSCULAR HGB CONC 32.6 g/dL (32.0-36.0); MEAN CORPUSCULAR VOLUME 90 fl (80-97); PLATELET COUNT 129 10^3/uL (150-450); RED BLOOD COUNT 2.82 10^6/uL (3.72-5.28); RED CELL DISTRIBUTION WIDTH 16.9 % (11.5-14.0); WHITE BLOOD COUNT 6.6 10^3/uL (4.0-10.5)
[2019-03-23 05:39] LABS: ANION GAP 3 (5-19)
[2019-03-23] MEDS: METHYLPREDNISOLONE INJ 40 MG/1 ML SDV IV SCH ×3 (06:07→21:34)
[2019-03-23] MEDS: VANCOMYCIN HCL 1,500 MG in DEXTROSE 5%-WATER 250 ML IV SCH ×2 (06:07→17:21)
[2019-03-23] MEDS: LEVOTHYROXINE SODIUM 0.025 MG TABLET NG SCH (06:07)
[2019-03-23] MEDS: PIPERACILLIN SODIUM/TAZOBACTAM 3.375 GM in NORMAL SALINE 100 ML IV SCH ×3 (06:07→17:21)
[2019-03-23] MEDS: HEPARIN SOD (PORCINE) 5,000 UNIT/ML 1 ML SYRINGE SUBCUT SCH ×3 (06:46→21:35)
[2019-03-23 06:52] LABS: ABSOLUTE LYMPHOCYTES# (MANUAL) 0.4 10^3/uL (0.5-4.7); ABSOLUTE MONOCYTES # (MANUAL) 0.3 10^3/uL (0.1-1.4); ABSOLUTE NEUTROPHILS# (MANUAL) 5.9 10^3/uL (1.7-8.2); BASOPHILS % (MANUAL) 0 % (0-2); EOSINOPHILS % (MANUAL) 0 % (0-6); LYMPHOCYTES % (MANUAL) 4 % (13-45); MONOCYTES % (MANUAL) 5 % (3-13); SEGMENTED NEUTROPHILS % (MAN) 89 % (42-78); TOTAL CELLS COUNTED 100
[2019-03-23 06:53] LABS: PLATELET COMMENT DECREASED; STOMATOCYTES 1+
[2019-03-23] MEDS: ACETYLCYSTEINE 20% SOLN 800 MG/4 ML VIAL.NEB NEB SCH ×2 (08:39→20:25)
[2019-03-23] MEDS: BUDESONIDE NEB 0.5 MG/2 ML AMPUL NEB SCH ×2 (08:40→20:25)
--- NOTE | 2019-03-23 08:59 | RADIOLOGY REPORT (SQ) ---
EXAM DESCRIPTION: CHEST SINGLE VIEW COMPLETED DATE/TIME: 03/23/2019 8:42 am REASON FOR STUDY: resp failure COMPARISON: 03/22/2019 EXAM PARAMETERS: NUMBER OF VIEWS: One view. TECHNIQUE: Single frontal radiographic view of the chest acquired. RADIATION DOSE: NA LIMITATIONS: None. FINDINGS: LUNGS AND PLEURA: Stable small bilateral pleural effusions and scattered opacities in the right lower lung in the left lung base. Emphysematous changes and chronic stable mild interstitial changes in the lungs. No pneumothorax. MEDIASTINUM AND HILAR STRUCTURES: No masses. Contour normal. HEART AND VASCULAR STRUCTURES: Stable appearance. Normal vasculature. BONES: No acute findings. HARDWARE: Support tubes and line are stable. OTHER: No other significant finding. IMPRESSION: 1. No significant interval changes since the prior examination dated 03/22/2019. TECHNICAL DOCUMENTATION: JOB ID: [id number] [employer]- All Rights Reserved Reading location - IP/workstation name: [email or web address]
[2019-03-23] MEDS: FAMOTIDINE 20 MG TABLET NG SCH ×2 (09:42→21:36)
[2019-03-23] MEDS: MONTELUKAST SODIUM 10 MG TABLET NG SCH (09:42)
[2019-03-23] MEDS: DOCUSATE SODIUM 100 MG/10 ML UDC NG SCH ×2 (09:42→17:21)
[2019-03-23] MEDS: CETIRIZINE 10 MG TABLET NG SCH (09:42)
[2019-03-23] MEDS ORDERED: ALPRAZOLAM 0.5 MG TABLET NG PRN (10:34)
[2019-03-23] MEDS: ROFLUMILAST 500 MCG TABLET NG SCH (11:00)
[2019-03-23] MEDS ORDERED: DIAZEPAM INJ 10 MG/2 ML DISP.SYRIN IV PRN (11:42)
[2019-03-23] MEDS ORDERED: DEXAMETHASONE SOD PHOSPHATE INJ 4 MG/1 ML VIAL ONE (13:23)
[2019-03-23] MEDS: ACETAMINOPHEN 325 MG TABLET NG PRN ×2 (14:45→19:18)
--- NOTE | 2019-03-23 16:46 | PDOC PROGRESS REPORT ---
Subjective Progress Note for:: 03/23/19 Subjective:: 03/22: Assumed care today. ICU course and chart reviewed. This is a 49-year-old female past medical history of CAD with severe COPD who initially presented with increasing shortness of breath presented with increasing shortness of breath on 03/07. She was noted to have a right lower lobe pneumonia was also in COPD exacerbation. She was initially on BiPAP but developed increasing shortness of breath and hypoxia on 03/19. She change her CODE STATUS from DNR to full code and was subsequently intubated. No acute event overnight. Patient is currently sedated and intubated. She has minimal secretions from the ET. 03/23: No acute event overnight. No significant secretions on ET. Patient is doing well on breathing trials and will likely be extubated today. Reason For Visit: ACUTE RESPIRATORY FAILURE WITH HYPOXIA AND Physical Exam Vital Signs: Temp Pulse Resp BP Pulse Ox 99.7 F 110 H 26 H 145/86 H 92 03/23/19 14:01 03/23/19 14:10 03/23/19 14:10 03/23/19 14:01 03/23/19 14:10 Intake & Output 03/22/19 03/23/19 03/24/19 06:59 06:59 06:59 Intake Total 4075 3514 515 Output Total 2220 1440 500 Balance 1855 2074 15 Weight 165 lb 12.602 oz 173 lb 1.006 oz General appearance: PRESENT: other - intubated, follows commands Head exam: PRESENT: atraumatic, normocephalic Eye exam: PRESENT: conjunctiva pink, EOMI, PERRLA. ABSENT: scleral icterus Ear exam: PRESENT: normal external ear exam Neck exam: ABSENT: carotid bruit, JVD, lymphadenopathy, thyromegaly Respiratory exam: PRESENT: rhonchi. ABSENT: rales, wheezes Cardiovascular exam: PRESENT: RRR. ABSENT: diastolic murmur, rubs, systolic murmur Pulses: PRESENT: normal dorsalis pedis pul GI/Abdominal exam: PRESENT: normal bowel sounds, soft. ABSENT: distended, guarding, mass, organolmegaly, rebound, tenderness Rectal exam: PRESENT: deferred Neurological exam: PRESENT: other - intubated Results Laboratory Results: 03/23/19 04:35 03/23/19 04:35 03/23/19 03/23/19 03/23/19 04:35 04:35 04:40 WBC 6.6 RBC 2.82 L Hgb 8.2 L Hct 25.3 L MCV 90 MCH 29.2 MCHC 32.6 RDW 16.9 H Plt Count 129 L Seg Neutrophils % Not Reportable Lymphocytes % Not Reportable Monocytes % Not Reportable Eosinophils % Not Reportable Basophils % Not Reportable Absolute Neutrophils Not Reportable Absolute Lymphocytes Not Reportable Absolute Monocytes Not Reportable Absolute Eosinophils Not Reportable Absolute Basophils Not Reportable Carbonic Acid 1.56 H HCO3/H2CO3 Ratio 22:1 ABG pH 7.44 ABG pCO2 51.8 H ABG pO2 67.1 L ABG HCO3 34.7 H ABG O2 Saturation 93.7 L ABG Base Excess 9.4 FiO2 40% Sodium 142.5 Potassium 4.0 Chloride 103 Carbon Dioxide 37 H Anion Gap 3 L BUN 24 H Creatinine 0.47 L Est GFR ( Amer) > 60 Est GFR (Non-Af Amer) > 60 Glucose 103 Calcium 8.1 L Magnesium 2.3 03/16/19 03/16/19 03/16/19 20:45 20:45 21:01 Creatine Kinase 23 L CK-MB (CK-2) Cancelled 0.56 Troponin I Cancelled 0.013 NT-Pro-B Natriuret Pep Cancelled 03/23/19 04:35 Creatine Kinase CK-MB (CK-2) Troponin I NT-Pro-B Natriuret Pep 661 Impressions: Chest/Abdomen CTA 03/16/19 20:53 IMPRESSION: Negative for pulmonary embolus, thoracic aortic aneurysm, or dissection. Severe emphysematous changes. Bibasilar bronchiectasis and scarring. Consolidative change posterior right lung base TECHNICAL DOCUMENTATION: Quality ID # 436: Final reports with documentation of one or more dose reduction techniques (e.g., Automated exposure control, adjustment of the mA and/or kV according to patient size, use of iterative reconstruction technique) copyright 2011 [employer]- All Rights Reserved Chest X-Ray 03/23/19 06:00 IMPRESSION: 1. No significant interval changes since the prior examination dated 03/22/2019. Assessment and Plan - Diagnosis (1) Acute on chronic respiratory failure with hypoxia and hypercapnia Is this a current diagnosis for this admission?: Yes Plan: Secondary to right lower lobe pneumonia and COPD exacerbation. 03/23: No significant secretions on ET. Patient is doing well on breathing trials and will likely be extubated today. (2) COPD exacerbation Is this a current diagnosis for this admission?: Yes Plan: 03/22: Continue Solu-Medrol 40 mg IV every 8. Continue breathing treatments. 03/23: Improving. Reduce solumedrol to 40 mg q12. (3) Pneumonia Qualifiers: Pneumonia type: due to unspecified organism Laterality: bilateral Is this a current diagnosis for this admission?: Yes Plan: Switch meropenem to Zosyn. Tracheal aspirate culture is growing gram negative rods. - Time Time Spent with patient: 25-34 minutes
[2019-03-23] MEDS ORDERED: FUROSEMIDE INJ/PF 40 MG/4 ML SDV IV ONE (17:00)
[2019-03-23] MEDS: IBUPROFEN 800 MG TABLET NG PRN (21:35)
[2019-03-23] MEDS: GABAPENTIN 100 MG CAPSULE NG SCH (21:35)
[2019-03-23] MEDS: ROPINIROLE HCL 1 MG TABLET NG SCH (21:36)
[2019-03-24] MEDS: PIPERACILLIN SODIUM/TAZOBACTAM 3.375 GM in NORMAL SALINE 100 ML IV SCH ×4 (00:05→18:30)
[2019-03-24] MEDS: IPRATROPIUM BROMIDE 0.02% NEB 0.5 MG/2.5 ML AMPUL NEB SCH ×2 (02:02→07:35)
[2019-03-24] MEDS: LEVALBUTEROL HCL NEB 1.25 MG/3 ML AMPUL NEB SCH ×2 (02:02→07:35)
[2019-03-24] MEDS: HEPARIN SOD (PORCINE) 5,000 UNIT/ML 1 ML SYRINGE SUBCUT SCH ×3 (05:16→21:54)
[2019-03-24] MEDS: METHYLPREDNISOLONE INJ 40 MG/1 ML SDV IV SCH ×3 (05:17→22:02)
[2019-03-24] MEDS: LEVOTHYROXINE SODIUM 0.025 MG TABLET NG SCH (05:17)
[2019-03-24 05:54] LABS: ARTERIAL BLOOD BASE EXCESS 14.7 mmol/L; ARTERIAL BLOOD H2CO3 1.62 mmol/L (1.05-1.35); ARTERIAL BLOOD HCO3 39.9 mmol/L (20-24); ARTERIAL BLOOD PCO2 53.9 mmHg (35-45); ARTERIAL BLOOD PH 7.49 (7.35-7.45); ARTERIAL BLOOD TOTAL CO2 41.5 mmol/L (21-25)
[2019-03-24 05:55] LABS: ARTERIAL BLOOD FIO2 25%
[2019-03-24 06:01] LABS: HEMATOCRIT 25.7 % (36.0-47.0); HEMOGLOBIN 8.5 g/dL (12.0-15.5); MEAN CORPUSCULAR HEMOGLOBIN 29.5 pg (27.0-33.4); MEAN CORPUSCULAR VOLUME 89 fl (80-97); PLATELET COUNT 131 10^3/uL (150-450); RED BLOOD COUNT 2.88 10^6/uL (3.72-5.28); RED CELL DISTRIBUTION WIDTH 15.9 % (11.5-14.0); WHITE BLOOD COUNT 6.4 10^3/uL (4.0-10.5)
[2019-03-24 06:15] LABS: BLOOD UREA NITROGEN 31 mg/dL (7-20); CALCIUM 8.2 mg/dL (8.4-10.2); CHLORIDE 100 mmol/L (98-107); GLUCOSE 90 mg/dL (75-110); POTASSIUM 3.7 mmol/L (3.6-5.0); SODIUM 143.6 mmol/L (137-145)
[2019-03-24] MEDS: VANCOMYCIN HCL 1,500 MG in DEXTROSE 5%-WATER 250 ML IV SCH (06:19)
[2019-03-24 06:22] LABS: VANCOMYCIN,TROUGH 23.3 ug/mL (5.0-20.0)
[2019-03-24 06:32] LABS: ANION GAP 3 (5-19)
[2019-03-24 06:34] LABS: CARBON DIOXIDE 41 mmol/L (22-30)
[2019-03-24] MEDS: ACETYLCYSTEINE 20% SOLN 800 MG/4 ML VIAL.NEB NEB SCH (07:35)
[2019-03-24] MEDS: BUDESONIDE NEB 0.5 MG/2 ML AMPUL NEB SCH (07:35)
[2019-03-24 07:36] LABS: ABSOLUTE LYMPHOCYTES# (MANUAL) 0.6 10^3/uL (0.5-4.7); ABSOLUTE NEUTROPHILS# (MANUAL) 5.8 10^3/uL (1.7-8.2); BASOPHILS % (MANUAL) 0 % (0-2); EOSINOPHILS % (MANUAL) 0 % (0-6); LYMPHOCYTES % (MANUAL) 9 % (13-45); METAMYELOCYTES % (MANUAL) 2 % (0); MONOCYTES % (MANUAL) 0 % (3-13); NUCLEATED RED BLOOD CELLS 1 /100 WBC (0); SEGMENTED NEUTROPHILS % (MAN) 89 % (42-78); TOTAL CELLS COUNTED 100
[2019-03-24 07:37] LABS: ANISOCYTOSIS SLIGHT; PLATELET COMMENT DECREASED
--- NOTE | 2019-03-24 07:50 | RADIOLOGY REPORT (SQ) ---
EXAM DESCRIPTION: XR CHEST 1 VIEW COMPLETED DATE/TME: 03/24/2019 06:00 CLINICAL HISTORY: 58 years Female, resp failure COMPARISON: One day prior. NUMBER OF VIEWS/TECHNIQUE: 1/AP FINDINGS: Mild mixed interstitial and streaky opacities of both lung malik.Adequate appearing enteric tube partially obscured. Adequate appearing right jugular central line. Normal cardiac silhouette. No pneumothorax. Stable bony thorax. IMPRESSION: Interval extubation.
[2019-03-24] MEDS: DOCUSATE SODIUM 100 MG/10 ML UDC NG SCH (10:23)
[2019-03-24] MEDS: FAMOTIDINE 20 MG TABLET NG SCH (10:23)
[2019-03-24] MEDS: MONTELUKAST SODIUM 10 MG TABLET NG SCH (10:23)
[2019-03-24] MEDS: CETIRIZINE 10 MG TABLET NG SCH (10:23)
[2019-03-24] MEDS: ACETAMINOPHEN 325 MG TABLET NG PRN ×2 (10:23→14:17)
[2019-03-24] MEDS: ROFLUMILAST 500 MCG TABLET NG SCH (10:23)
[2019-03-24] MEDS: IPRATROPIUM/ALBUTEROL 0.5-2.5 MG/3 ML AMPUL NEB SCH ×3 (13:31→20:18)
--- NOTE | 2019-03-24 14:50 | PDOC PROGRESS REPORT ---
Subjective Progress Note for:: 03/24/19 Subjective:: 03/22: Assumed care today. ICU course and chart reviewed. This is a 49-year-old female past medical history of CAD with severe COPD who initially presented with increasing shortness of breath presented with increasing shortness of breath on 03/07. She was noted to have a right lower lobe pneumonia was also in COPD exacerbation. She was initially on BiPAP but developed increasing shortness of breath and hypoxia on 03/19. She changed her CODE STATUS from DNR to full code and was subsequently intubated. No acute event overnight. Patient is currently sedated and intubated. She has minimal secretions from the ET. 03/23: No significant secretions on ET. Patient is doing well on breathing trials and will likely be extubated today. 03/24: No acute event overnight. She was successful extubated yesterday. She is currently doing well on BiPAP. Denies chest pain or acute shortness of breath. She will be downgraded to IMCU. Reason For Visit: ACUTE RESPIRATORY FAILURE WITH HYPOXIA AND Physical Exam Vital Signs: Temp Pulse Resp BP Pulse Ox 97.8 F 82 22 H 145/85 H 95 03/24/19 13:17 03/24/19 13:34 03/24/19 13:34 03/24/19 13:17 03/24/19 13:34 Intake & Output 03/23/19 03/24/19 03/25/19 06:59 06:59 06:59 Intake Total 3514 1065 1083 Output Total 1440 3380 175 Balance 2074 -2315 908 Weight 173 lb 1.006 oz 166 lb 14.239 oz General appearance: PRESENT: no acute distress, well-developed, well-nourished Head exam: PRESENT: atraumatic, normocephalic Eye exam: PRESENT: conjunctiva pink, EOMI, PERRLA. ABSENT: scleral icterus Ear exam: PRESENT: normal external ear exam Mouth exam: PRESENT: moist, tongue midline Neck exam: ABSENT: carotid bruit, JVD, lymphadenopathy, thyromegaly Respiratory exam: PRESENT: rhonchi. ABSENT: rales, wheezes Cardiovascular exam: PRESENT: RRR. ABSENT: diastolic murmur, rubs, systolic murmur Pulses: PRESENT: normal dorsalis pedis pul GI/Abdominal exam: PRESENT: normal bowel sounds, soft. ABSENT: distended, guarding, mass, organolmegaly, rebound, tenderness Rectal exam: PRESENT: deferred Neurological exam: PRESENT: alert, awake, oriented to person, oriented to place, oriented to time, oriented to situation, CN II-XII grossly intact. ABSENT: motor sensory deficit Results Laboratory Results: 03/24/19 05:25 03/24/19 05:25 03/24/19 03/24/19 03/24/19 05:25 05:25 05:45 WBC 6.4 RBC 2.88 L Hgb 8.5 L Hct 25.7 L MCV 89 MCH 29.5 MCHC 33.0 RDW 15.9 H Plt Count 131 L Seg Neutrophils % Not Reportable Lymphocytes % Not Reportable Monocytes % Not Reportable Eosinophils % Not Reportable Basophils % Not Reportable Absolute Neutrophils Not Reportable Absolute Lymphocytes Not Reportable Absolute Monocytes Not Reportable Absolute Eosinophils Not Reportable Absolute Basophils Not Reportable Carbonic Acid 1.62 H HCO3/H2CO3 Ratio 24:1 ABG pH 7.49 H ABG pCO2 53.9 H ABG pO2 77.0 L ABG HCO3 39.9 H ABG O2 Saturation 96.0 ABG Base Excess 14.7 FiO2 25% Sodium 143.6 Potassium 3.7 Chloride 100 Carbon Dioxide 41 H* Anion Gap 3 L BUN 31 H Creatinine 0.55 Est GFR ( Amer) > 60 Est GFR (Non-Af Amer) > 60 Glucose 90 Calcium 8.2 L 03/20/19 06:05 Tracheal Aspirate Gram Stain - Final 03/20/19 06:05 Tracheal Aspirate Sputum Culture - Final Pseudomonas Aeruginosa Normal Marva Absent 03/16/19 03/16/19 03/16/19 20:45 20:45 21:01 Creatine Kinase 23 L CK-MB (CK-2) Cancelled 0.56 Troponin I Cancelled 0.013 NT-Pro-B Natriuret Pep Cancelled 03/23/19 04:35 Creatine Kinase CK-MB (CK-2) Troponin I NT-Pro-B Natriuret Pep 661 Impressions: Chest/Abdomen CTA 03/16/19 20:53 IMPRESSION: Negative for pulmonary embolus, thoracic aortic aneurysm, or dissection. Severe emphysematous changes. Bibasilar bronchiectasis and scarring. Consolidative change posterior right lung base TECHNICAL DOCUMENTATION: Quality ID # 436: Final reports with documentation of one or more dose reduction techniques (e.g., Automated exposure control, adjustment of the mA and/or kV according to patient size, use of iterative reconstruction technique) copyright 2011 [employer]- All Rights Reserved Chest X-Ray 03/24/19 06:00 IMPRESSION: Interval extubation. Assessment and Plan - Diagnosis (1) Acute on chronic respiratory failure with hypoxia and hypercapnia Is this a current diagnosis for this admission?: Yes Plan: Secondary to right lower lobe pneumonia and COPD exacerbation. 03/23: No significant secretions on ET. Patient is doing well on breathing trials and will likely be extubated today. 03/24: Successfully extubated yesterday. Currently saturating well on BiPAP. (2) COPD exacerbation Is this a current diagnosis for this admission?: Yes Plan: 03/22: Continue Solu-Medrol 40 mg IV every 8. Continue breathing treatments. 03/23: Improving. Reduce solumedrol to 40 mg q12. (3) Pneumonia Qualifiers: Pneumonia type: due to unspecified organism Laterality: bilateral Is this a current diagnosis for this admission?: Yes Plan: 03/23: Switch meropenem to Zosyn. Tracheal aspirate culture is growing gram negative rods. 03/24: Sputum culture grew Pseudomonas. Discontinue vancomycin. Isolate has intermediate sensitivity to Cipro and levofloxacin. Continue Zosyn for now. Will consult ID for further antibiotic recommendations. - Time Time Spent with patient: 25-34 minutes
--- NOTE | 2019-03-24 14:53 | ADVANCED CARE ---
- Diagnosis (1) Acute on chronic respiratory failure with hypoxia and hypercapnia Diagnosis Current: Yes (2) COPD exacerbation Diagnosis Current: Yes (3) Pneumonia Diagnosis Current: Yes Resuscitation Status: Full Code Discussion: Rediscussed CODE STATUS with patient as she was a previous DNR and switched her CODE STATUS to full code when she was recently intubated. She acknowledges that she was indeed a previous DNR. She says that she wants to remain full code at this time. She did verbalize that she only prefers to be on short-term mechanical ventilation. When prompted what she meant by this, she says that if she is not weaned off the ventilator if she gets reintubated in the future she would not prefer to undergo tracheostomy or PEG tube placement. Her is her surrogate medical decision maker.
[2019-03-24] MEDS ORDERED: IBUPROFEN 800 MG TABLET PO PRN (16:00)
[2019-03-24] MEDS ORDERED: MAG HYDROX/AL HYDROX/SIMETH SUSP 30 ML UDCUP PO PRN (16:00)
[2019-03-24] MEDS ORDERED: IPRATROPIUM/ALBUTEROL 0.5-2.5 MG/3 ML AMPUL NEB ONE (16:15)
[2019-03-24] MEDS: DOCUSATE SODIUM 100 MG/10 ML UDC PO SCH (18:09)
[2019-03-24] MEDS: ACETAMINOPHEN 325 MG TABLET PO PRN (20:24)
[2019-03-24] MEDS: FAMOTIDINE 20 MG TABLET PO SCH (22:02)
[2019-03-24] MEDS: ROPINIROLE HCL 1 MG TABLET PO SCH (22:02)
[2019-03-24] MEDS: VANCOMYCIN HCL 1,000 MG in DEXTROSE 5%-WATER 250 ML IV SCH (22:02)
[2019-03-24] MEDS: GABAPENTIN 100 MG CAPSULE PO SCH (22:02)
[2019-03-25] MEDS: PIPERACILLIN SODIUM/TAZOBACTAM 3.375 GM in NORMAL SALINE 100 ML IV SCH ×4 (00:14→18:51)
[2019-03-25] MEDS: IPRATROPIUM/ALBUTEROL 0.5-2.5 MG/3 ML AMPUL NEB SCH ×6 (00:14→21:20)
[2019-03-25] MEDS: HEPARIN SOD (PORCINE) 5,000 UNIT/ML 1 ML SYRINGE SUBCUT SCH ×3 (05:25→22:01)
[2019-03-25] MEDS: METHYLPREDNISOLONE INJ 40 MG/1 ML SDV IV SCH ×3 (05:30→21:59)
[2019-03-25] MEDS: LEVOTHYROXINE SODIUM 0.025 MG TABLET PO SCH (05:30)
[2019-03-25] MEDS: MONTELUKAST SODIUM 10 MG TABLET PO SCH (10:45)
[2019-03-25] MEDS: ROFLUMILAST 500 MCG TABLET PO SCH (10:45)
[2019-03-25] MEDS: FAMOTIDINE 20 MG TABLET PO SCH ×2 (10:45→21:59)
[2019-03-25] MEDS: VANCOMYCIN HCL 1,000 MG in DEXTROSE 5%-WATER 250 ML IV SCH (11:26)
[2019-03-25] MEDS: DOCUSATE SODIUM 100 MG/10 ML UDC PO SCH (12:08)
[2019-03-25] MEDS: DOCUSATE SODIUM 100 MG CAPSULE PO SCH ×2 (13:26→18:51)
--- NOTE | 2019-03-25 14:29 | PDOC PROGRESS REPORT ---
Subjective Progress Note for:: 03/25/19 Subjective:: This is 58 years old female patient with past medical history of end- stage COPD and patient is O2 dependent she gets 4 L of oxygen via nasal cannula, hypothyroid presented with chief complaint of dyspnea. Patient despite using her usual baseline breathing treatment failed to respond and she activated EMS. By the time EMS arrived she was severely desaturated with O2 saturation of 40%. At the emergency department patient was put on BiPAP but she continued to be in severe respiratory distress so patient revoked her DNR/DNI and she was emergently intubated and transferred to ICU. Her conditions improved she is extubated and downgraded to the IMCU floor. I seen this patient propped up in bed and getting oxygen via nasal cannula. Still she is in mild to moderate respiratory distress. Her CT scan reported as consolidation and bronchiectasis. Her sputum culture is positive for Pseudomonas aeruginosa. Patient has been on Zosyn and vancomycin. I discontinue Zyvox and discontinue the Zosyn to cover for her Pseudomonas. Reason For Visit: ACUTE RESPIRATORY FAILURE WITH HYPOXIA AND Physical Exam Vital Signs: Temp Pulse Resp BP Pulse Ox 97.6 F 76 29 H 141/69 H 92 03/25/19 08:41 03/25/19 12:08 03/25/19 12:08 03/25/19 08:41 03/25/19 12:08 Intake & Output 03/24/19 03/25/19 03/26/19 06:59 06:59 06:59 Intake Total 1065 2103 350 Output Total 3380 1375 Balance -2315 728 350 Weight 75.7 kg 76.8 kg General appearance: PRESENT: mild distress Head exam: PRESENT: atraumatic Eye exam: PRESENT: conjunctiva pink Mouth exam: PRESENT: moist Neck exam: ABSENT: carotid bruit, JVD, lymphadenopathy, thyromegaly Respiratory exam: PRESENT: crackles, wheezes GI/Abdominal exam: PRESENT: normal bowel sounds, soft. ABSENT: distended, guarding, mass, organolmegaly, rebound, tenderness Neurological exam: PRESENT: alert, awake, oriented to person, oriented to place, oriented to time, oriented to situation Results Laboratory Results: 03/24/19 05:25 03/24/19 05:25 03/20/19 06:05 Tracheal Aspirate Gram Stain - Final 03/20/19 06:05 Tracheal Aspirate Sputum Culture - Final Pseudomonas Aeruginosa Normal Marva Absent 03/16/19 03/16/19 03/16/19 20:45 20:45 21:01 Creatine Kinase 23 L CK-MB (CK-2) Cancelled 0.56 Troponin I Cancelled 0.013 NT-Pro-B Natriuret Pep Cancelled 03/23/19 04:35 Creatine Kinase CK-MB (CK-2) Troponin I NT-Pro-B Natriuret Pep 661 Impressions: Chest/Abdomen CTA 03/16/19 20:53 IMPRESSION: Negative for pulmonary embolus, thoracic aortic aneurysm, or dissection. Severe emphysematous changes. Bibasilar bronchiectasis and scarring. Consolidative change posterior right lung base TECHNICAL DOCUMENTATION: Quality ID # [id number]: Final reports with documentation of one or more dose reduction techniques (e.g., Automated exposure control, adjustment of the mA and/or kV according to patient size, use of iterative reconstruction technique) copyright 2011 [employer]- All Rights Reserved Chest X-Ray 03/24/19 06:00 IMPRESSION: Interval extubation. Assessment and Plan - Diagnosis (1) Acute on chronic respiratory failure with hypoxia and hypercapnia Is this a current diagnosis for this admission?: Yes Plan: Continue supplemental oxygen. (2) COPD exacerbation Is this a current diagnosis for this admission?: Yes Plan: Continue current regimen (3) Right LL pneumonia and bronchiectasis Is this a current diagnosis for this admission?: Yes Plan: Continue Zosyn and DC vancomycin. (4) Hypothyroidism Qualifiers: Hypothyroidism type: acquired Qualified Code(s): E03.9 - Hypothyroidism, unspecified Is this a current diagnosis for this admission?: Yes Plan: Continue Synthroid (5) Leukocytosis Is this a current diagnosis for this admission?: Yes Plan: Resolved
[2019-03-25] MEDS: ACETAMINOPHEN 325 MG TABLET PO PRN ×2 (16:04→21:58)
--- NOTE | 2019-03-25 18:59 | Progress Note ---
Provider Note Provider Note: ID Consult Note Asked to review patient's chart. Pt not seen or examined. Ms. Cedillo is a 58 year old woman with PMH including COPD with chronic hypoxic respiratory failure on home oxygen who was admitted on 03/16 with increased SOB. She was found to be hypoxic and required intubation. Blood cultures are negative. Tracheal aspirate on 03/20 showed growth of Pseudomonas that is intermediate in susceptibility to fluoroquinolones but otherwise susceptible to antipseudomonal agents. She received meropenem from 03/17-03/22, then Zosyn from 03/22 to present. She was empirically also on vancomycin, discontinued today, and doxycycline, discontinued earlier in her course. Impression/Recommendations Typical durations of antibiotic therapy is in the range of 3-7 days in patients with COPD exerbation, depending upon response. A meta-analysis of studies regarding COPD exacerbations found no difference in durations of treatment less than 5 days versus longer than 5 days. Ms. Cedillo has been treated for a COPD exacerbation. She has improved clinically. At this point she has completed 7 days of antibiotics that have been active against the Pseudomonas that was isolated from her sputum. It would be appropriate to stop Zosyn and to continue care otherwise aimed at optimizing her COPD management. Romulo Suazo MD [facility] Infectious Diseases pager [phone]
[2019-03-25] MEDS: ROPINIROLE HCL 1 MG TABLET PO SCH (21:58)
[2019-03-25] MEDS: GABAPENTIN 100 MG CAPSULE PO SCH (21:58)
[2019-03-26] MEDS: IPRATROPIUM/ALBUTEROL 0.5-2.5 MG/3 ML AMPUL NEB SCH ×7 (00:15→23:35)
[2019-03-26] MEDS: PIPERACILLIN SODIUM/TAZOBACTAM 3.375 GM in NORMAL SALINE 100 ML IV SCH ×4 (00:26→18:06)
[2019-03-26] MEDS: METHYLPREDNISOLONE INJ 40 MG/1 ML SDV IV SCH (05:26)
[2019-03-26] MEDS: LEVOTHYROXINE SODIUM 0.025 MG TABLET PO SCH (05:26)
[2019-03-26] MEDS: HEPARIN SOD (PORCINE) 5,000 UNIT/ML 1 ML SYRINGE SUBCUT SCH ×3 (05:27→22:07)
[2019-03-26] MEDS ORDERED: PREDNISONE 20 MG TABLET ONE (10:34)
[2019-03-26] MEDS: DOCUSATE SODIUM 100 MG CAPSULE PO SCH ×2 (10:35→18:06)
[2019-03-26] MEDS: ROFLUMILAST 500 MCG TABLET PO SCH (10:35)
[2019-03-26] MEDS: MONTELUKAST SODIUM 10 MG TABLET PO SCH (10:35)
[2019-03-26] MEDS: FAMOTIDINE 20 MG TABLET PO SCH ×2 (10:35→22:08)
[2019-03-26] MEDS: PREDNISONE 20 MG TABLET PO SCH (10:35)
--- NOTE | 2019-03-26 14:39 | PDOC PROGRESS REPORT ---
Subjective Progress Note for:: 03/26/19 Subjective:: Patient seen and examined she is sitting up in bed. She is awake alert cooperative. She is still in mild to moderate respiratory distress. Her CT scan showed market severe emphysematous changes and probable bronchiectasis at the right lung lower lobe. Reason For Visit: ACUTE RESPIRATORY FAILURE WITH HYPOXIA AND Physical Exam Vital Signs: Temp Pulse Resp BP Pulse Ox 97.4 F 96 21 H 150/85 H 93 03/26/19 12:49 03/26/19 14:00 03/26/19 12:49 03/26/19 12:49 03/26/19 12:49 Intake & Output 03/25/19 03/26/19 03/27/19 06:59 06:59 06:59 Intake Total 2103 1402 580 Output Total 1375 1350 1100 Balance 728 52 -520 Weight 76.8 kg 78.7 kg General appearance: PRESENT: mild distress Neck exam: ABSENT: carotid bruit, JVD, lymphadenopathy, thyromegaly Respiratory exam: PRESENT: decreased breath sounds - Bilateral, wheezes Cardiovascular exam: PRESENT: irregular rhythm GI/Abdominal exam: PRESENT: normal bowel sounds, soft. ABSENT: distended, guarding, mass, organolmegaly, rebound, tenderness Neurological exam: PRESENT: alert, oriented to person, oriented to place, oriented to time, oriented to situation Results Laboratory Results: 03/24/19 05:25 03/24/19 05:25 03/16/19 03/16/19 03/16/19 20:45 20:45 21:01 Creatine Kinase 23 L CK-MB (CK-2) Cancelled 0.56 Troponin I Cancelled 0.013 NT-Pro-B Natriuret Pep Cancelled 03/23/19 04:35 Creatine Kinase CK-MB (CK-2) Troponin I NT-Pro-B Natriuret Pep 661 Impressions: Chest/Abdomen CTA 03/16/19 20:53 IMPRESSION: Negative for pulmonary embolus, thoracic aortic aneurysm, or dissection. Severe emphysematous changes. Bibasilar bronchiectasis and scarring. Consolidative change posterior right lung base TECHNICAL DOCUMENTATION: Quality ID # [id number]: Final reports with documentation of one or more dose reduction techniques (e.g., Automated exposure control, adjustment of the mA and/or kV according to patient size, use of iterative reconstruction technique) copyright 2011 [employer]- All Rights Reserved Chest X-Ray 03/24/19 06:00 IMPRESSION: Interval extubation. Assessment and Plan - Diagnosis (1) Acute on chronic respiratory failure with hypoxia and hypercapnia Is this a current diagnosis for this admission?: Yes Plan: Continue supplemental oxygen. (2) COPD exacerbation Is this a current diagnosis for this admission?: Yes Plan: I tapered her steroid from 120 mg IV daily to 60 mg p.o. daily (3) Right LL pneumonia and bronchiectasis Is this a current diagnosis for this admission?: Yes Plan: Continue Zosyn and DC vancomycin. (4) Hypothyroidism Qualifiers: Hypothyroidism type: acquired Qualified Code(s): E03.9 - Hypothyroidism, unspecified Is this a current diagnosis for this admission?: Yes Plan: Continue Synthroid (5) Leukocytosis Is this a current diagnosis for this admission?: Yes Plan: Resolved
[2019-03-26] MEDS: ACETAMINOPHEN 325 MG TABLET PO PRN (15:37)
[2019-03-26] MEDS: ROPINIROLE HCL 1 MG TABLET PO SCH (22:08)
[2019-03-26] MEDS: GABAPENTIN 100 MG CAPSULE PO SCH (22:08)
[2019-03-27] MEDS: PIPERACILLIN SODIUM/TAZOBACTAM 3.375 GM in NORMAL SALINE 100 ML IV SCH ×4 (01:02→18:22)
[2019-03-27] MEDS: IPRATROPIUM/ALBUTEROL 0.5-2.5 MG/3 ML AMPUL NEB SCH ×6 (03:26→23:37)
[2019-03-27] MEDS: HEPARIN SOD (PORCINE) 5,000 UNIT/ML 1 ML SYRINGE SUBCUT SCH ×3 (06:31→22:05)
[2019-03-27] MEDS: LEVOTHYROXINE SODIUM 0.025 MG TABLET PO SCH (06:41)
[2019-03-27] MEDS: MONTELUKAST SODIUM 10 MG TABLET PO SCH (10:29)
[2019-03-27] MEDS: DOCUSATE SODIUM 100 MG CAPSULE PO SCH ×2 (10:29→18:26)
[2019-03-27] MEDS: PREDNISONE 20 MG TABLET PO SCH (10:29)
[2019-03-27] MEDS: FAMOTIDINE 20 MG TABLET PO SCH ×2 (10:29→22:14)
[2019-03-27] MEDS: ROFLUMILAST 500 MCG TABLET PO SCH (10:29)
[2019-03-27] MEDS: ACETAMINOPHEN 325 MG TABLET PO PRN (11:30)
--- NOTE | 2019-03-27 11:44 | PDOC PROGRESS REPORT ---
Subjective Progress Note for:: 03/27/19 Subjective:: No significant change overnight. I will discontinue her Zosyn tomorrow. Reason For Visit: ACUTE RESPIRATORY FAILURE WITH HYPOXIA AND Physical Exam Vital Signs: Temp Pulse Resp BP Pulse Ox 97.7 F 99 20 147/78 H 95 03/27/19 07:22 03/27/19 09:22 03/27/19 09:22 03/27/19 07:22 03/27/19 09:22 Intake & Output 03/26/19 03/27/19 03/28/19 06:59 06:59 06:59 Intake Total 1402 1600 100 Output Total 1350 1100 Balance 52 500 100 Weight 78.7 kg 77 kg General appearance: PRESENT: no acute distress, mild distress Head exam: PRESENT: atraumatic Eye exam: PRESENT: conjunctiva pink Neck exam: ABSENT: carotid bruit, JVD, lymphadenopathy, thyromegaly Respiratory exam: PRESENT: decreased breath sounds - Bilateral GI/Abdominal exam: PRESENT: normal bowel sounds, soft. ABSENT: distended, guar ding, mass, organolmegaly, rebound, tenderness Extremities exam: PRESENT: full ROM. ABSENT: calf tenderness, clubbing, pedal edema Neurological exam: PRESENT: alert, oriented to person, oriented to time, oriented to situation Psychiatric exam: PRESENT: normal mood Results Laboratory Results: 03/24/19 05:25 03/24/19 05:25 03/16/19 03/16/19 03/16/19 20:45 20:45 21:01 Creatine Kinase 23 L CK-MB (CK-2) Cancelled 0.56 Troponin I Cancelled 0.013 NT-Pro-B Natriuret Pep Cancelled 03/23/19 04:35 Creatine Kinase CK-MB (CK-2) Troponin I NT-Pro-B Natriuret Pep 661 Impressions: Chest/Abdomen CTA 03/16/19 20:53 IMPRESSION: Negative for pulmonary embolus, thoracic aortic aneurysm, or dissection. Severe emphysematous changes. Bibasilar bronchiectasis and scarring. Consolidative change posterior right lung base TECHNICAL DOCUMENTATION: Quality ID # 436: Final reports with documentation of one or more dose reduction techniques (e.g., Automated exposure control, adjustment of the mA and/or kV according to patient size, use of iterative reconstruction technique) copyright 2011 [employer]- All Rights Reserved Chest X-Ray 03/24/19 06:00 IMPRESSION: Interval extubation. Assessment and Plan - Diagnosis (1) Acute on chronic respiratory failure with hypoxia and hypercapnia Is this a current diagnosis for this admission?: Yes Plan: Patient currently is at her baseline of chronic hypoxia. (2) COPD exacerbation Is this a current diagnosis for this admission?: Yes Plan: Continue current regimen (3) Right LL pneumonia and bronchiectasis Is this a current diagnosis for this admission?: Yes Plan: Continue Zosyn for today. (4) Hypothyroidism Qualifiers: Hypothyroidism type: acquired Qualified Code(s): E03.9 - Hypothyroidism, unspecified Is this a current diagnosis for this admission?: Yes Plan: Continue Synthroid (5) Leukocytosis Is this a current diagnosis for this admission?: Yes Plan: Resolved
[2019-03-27] MEDS: ROPINIROLE HCL 1 MG TABLET PO SCH (22:14)
[2019-03-27] MEDS: GABAPENTIN 100 MG CAPSULE PO SCH (22:14)
[2019-03-28] MEDS: PIPERACILLIN SODIUM/TAZOBACTAM 3.375 GM in NORMAL SALINE 100 ML IV SCH ×2 (02:30→07:27)
[2019-03-28] MEDS: IPRATROPIUM/ALBUTEROL 0.5-2.5 MG/3 ML AMPUL NEB SCH ×5 (04:25→20:02)
[2019-03-28] MEDS: HEPARIN SOD (PORCINE) 5,000 UNIT/ML 1 ML SYRINGE SUBCUT SCH ×3 (05:56→21:28)
[2019-03-28] MEDS: ACETAMINOPHEN 325 MG TABLET PO PRN ×2 (06:17→17:45)
[2019-03-28] MEDS: LEVOTHYROXINE SODIUM 0.025 MG TABLET PO SCH (06:18)
[2019-03-28 06:31] LABS: ABSOLUTE RETICS # 0.106 10^6/uL (0.028-0.122); HEMATOCRIT 27.5 % (36.0-47.0); MEAN CORPUSCULAR HEMOGLOBIN 28.8 pg (27.0-33.4); MEAN CORPUSCULAR HGB CONC 32.6 g/dL (32.0-36.0); MEAN CORPUSCULAR VOLUME 88 fl (80-97); PLATELET COUNT 151 10^3/uL (150-450); RED BLOOD COUNT 3.12 10^6/uL (3.72-5.28); RED CELL DISTRIBUTION WIDTH 16.6 % (11.5-14.0); RETICULOCYTE COUNT (AUTO) 3.38 % (0.66-2.85); WHITE BLOOD COUNT 10.1 10^3/uL (4.0-10.5)
[2019-03-28 06:44] LABS: BLOOD UREA NITROGEN 11 mg/dL (7-20); CALCIUM 8.2 mg/dL (8.4-10.2); GLUCOSE 87 mg/dL (75-110)
[2019-03-28 07:07] LABS: CHLORIDE 97 mmol/L (98-107); SODIUM 139.2 mmol/L (137-145)
[2019-03-28 07:29] LABS: ANION GAP 1 (5-19)
[2019-03-28 07:30] LABS: CARBON DIOXIDE 41 mmol/L (22-30)
[2019-03-28] MEDS: DOCUSATE SODIUM 100 MG CAPSULE PO SCH ×2 (09:44→17:40)
[2019-03-28] MEDS: FAMOTIDINE 20 MG TABLET PO SCH ×2 (09:44→21:28)
[2019-03-28] MEDS: MONTELUKAST SODIUM 10 MG TABLET PO SCH (09:44)
[2019-03-28] MEDS: PREDNISONE 20 MG TABLET PO SCH (09:44)
[2019-03-28] MEDS: ROFLUMILAST 500 MCG TABLET PO SCH (09:45)
--- NOTE | 2019-03-28 12:50 | PDOC PROGRESS REPORT ---
Subjective Progress Note for:: 03/28/19 Subjective:: his is 58 years old female patient with past medical history of end- stage COPD and patient is O2 dependent she gets 4 L of oxygen via nasal cannula, hypothyroid presented with chief complaint of dyspnea. Patient despite using her usual baseline breathing treatment failed to respond and she activated EMS. By the time EMS arrived she was severely desaturated with O2 saturation of 40%. At the emergency department patient was put on BiPAP but she continued to be in severe respiratory distress so patient revoked her DNR/DNI and she was emergently intubated and transferred to ICU. Her conditions improved she is extubated and downgraded to the IMCU floor. I seen this patient propped up in bed and getting oxygen via nasal cannula. Still she is in mild to moderate respiratory distress. Her CT scan reported as consolidation and bronchiectasis. Her sputum culture is positive for Pseudomonas aeruginosa. Patient has been on Zosyn and vancomycin. I discontinue Zyvox and discontinue the Zosyn to cover for her Pseudomonas. 02/25/2019: Patient seen propped up in bed and seen while getting breathing treatment. She finished her course of antibiotics and Zosyn has been discontinued. Patient is a known case of chronic respiratory failure and end-s tage COPD and patient requires 4 L oxygen via nasal condyle 11/05. Since patient is debilitated and deconditioned she qualify for less than 30 days short-term acute rehab. She has awaiting placement. Reason For Visit: ACUTE RESPIRATORY FAILURE WITH HYPOXIA AND Physical Exam Vital Signs: Temp Pulse Resp BP Pulse Ox 97.3 F 98 22 H 152/71 H 100 03/28/19 11:39 03/28/19 11:39 03/28/19 11:39 03/28/19 11:39 03/28/19 11:39 Intake & Output 03/27/19 03/28/19 03/29/19 06:59 06:59 06:59 Intake Total 1600 940 220 Output Total 1100 1100 300 Balance 500 -160 -80 Weight 77 kg 77.3 kg General appearance: PRESENT: other - Moderate distress Head exam: PRESENT: atraumatic Eye exam: PRESENT: conjunctiva pink Respiratory exam: PRESENT: accessory muscle use, wheezes Cardiovascular exam: PRESENT: RRR. ABSENT: diastolic murmur, rubs, systolic murmur GI/Abdominal exam: PRESENT: normal bowel sounds, soft. ABSENT: distended, guarding, mass, organolmegaly, rebound, tenderness Extremities exam: PRESENT: +1 edema Neurological exam: PRESENT: alert, awake, oriented to person, oriented to place, oriented to time, oriented to situation Results Laboratory Results: 03/28/19 06:00 03/28/19 06:00 03/27/19 03/28/19 03/28/19 12:20 06:00 06:00 WBC 10.1 RBC 3.12 L Hgb 9.0 L Hct 27.5 L MCV 88 MCH 28.8 MCHC 32.6 RDW 16.6 H Plt Count 151 Retic Count (auto) 3.38 H Absolute Retic 0.106 Sodium 139.2 Potassium 4.0 Chloride 97 L Carbon Dioxide 41 H* Anion Gap 1 L BUN 11 Creatinine 0.40 L Est GFR ( Amer) > 60 Est GFR (Non-Af Amer) > 60 Glucose 87 Calcium 8.2 L Iron 36.0 L TIBC 261 % Saturation 14 Ferritin 55.40 Vitamin B12 515.0 Folate 6.80 Stool Occult Blood POSITIVE 03/16/19 03/16/19 03/16/19 20:45 20:45 21:01 Creatine Kinase 23 L CK-MB (CK-2) Cancelled 0.56 Troponin I Cancelled 0.013 NT-Pro-B Natriuret Pep Cancelled 03/23/19 04:35 Creatine Kinase CK-MB (CK-2) Troponin I NT-Pro-B Natriuret Pep 661 Impressions: Chest/Abdomen CTA 03/16/19 20:53 IMPRESSION: Negative for pulmonary embolus, thoracic aortic aneurysm, or dissection. Severe emphysematous changes. Bibasilar bronchiectasis and scarring. Consolidative change posterior right lung base TECHNICAL DOCUMENTATION: Quality ID # 436: Final reports with documentation of one or more dose reduction techniques (e.g., Automated exposure control, adjustment of the mA and/or kV according to patient size, use of iterative reconstruction technique) copyright 2011 [employer]- All Rights Reserved Chest X-Ray 03/24/19 06:00 IMPRESSION: Interval extubation. Assessment and Plan - Diagnosis (1) Acute on chronic respiratory failure with hypoxia and hypercapnia Is this a current diagnosis for this admission?: Yes Plan: Patient currently is at her baseline of chronic hypoxia. (2) COPD exacerbation Is this a current diagnosis for this admission?: Yes Plan: Continue current regimen (3) Right LL pneumonia and bronchiectasis Is this a current diagnosis for this admission?: Yes Plan: Continue Zosyn for today. (4) Hypothyroidism Qualifiers: Hypothyroidism type: acquired Qualified Code(s): E03.9 - Hypothyroidism, unspecified Is this a current diagnosis for this admission?: Yes Plan: Continue Synthroid (5) Leukocytosis Is this a current diagnosis for this admission?: Yes Plan: Resolved
[2019-03-28] MEDS: GABAPENTIN 100 MG CAPSULE PO SCH (21:28)
[2019-03-28] MEDS: ROPINIROLE HCL 1 MG TABLET PO SCH (21:28)
[2019-03-29] MEDS: IPRATROPIUM/ALBUTEROL 0.5-2.5 MG/3 ML AMPUL NEB SCH ×7 (00:10→23:55)
[2019-03-29] MEDS: HEPARIN SOD (PORCINE) 5,000 UNIT/ML 1 ML SYRINGE SUBCUT SCH ×3 (05:12→22:19)
[2019-03-29] MEDS: LEVOTHYROXINE SODIUM 0.025 MG TABLET PO SCH (05:12)
[2019-03-29] MEDS: DOCUSATE SODIUM 100 MG CAPSULE PO SCH ×2 (10:38→17:44)
[2019-03-29] MEDS: ROFLUMILAST 500 MCG TABLET PO SCH (10:38)
[2019-03-29] MEDS: FAMOTIDINE 20 MG TABLET PO SCH ×2 (10:38→22:15)
[2019-03-29] MEDS: PREDNISONE 20 MG TABLET PO SCH (10:38)
[2019-03-29] MEDS: MONTELUKAST SODIUM 10 MG TABLET PO SCH (10:38)
[2019-03-29] MEDS: ACETAMINOPHEN 325 MG TABLET PO PRN (13:20)
[2019-03-29] MEDS: NYSTATIN TOPICAL POWDER 15 GM TP SCH ×3 (17:38→22:19)
[2019-03-29] MEDS: ZINC OXIDE 20% OINTMENT 28.35 GM TP SCH ×3 (17:40→22:19)
--- NOTE | 2019-03-29 21:00 | PDOC PROGRESS REPORT ---
Subjective Progress Note for:: 03/29/19 Subjective:: Patient currently on BiPAP. She reports being off of BiPAP for approximately 3 hours today. Reason For Visit: ACUTE RESPIRATORY FAILURE WITH HYPOXIA AND Physical Exam Vital Signs: Temp Pulse Resp BP Pulse Ox 97.5 F 100 24 H 156/76 H 100 03/29/19 14:17 03/29/19 16:33 03/29/19 16:33 03/29/19 14:17 03/29/19 16:33 Intake & Output 03/28/19 03/29/19 03/30/19 06:59 06:59 06:59 Intake Total 940 942 700 Output Total 1100 600 750 Balance -160 342 -50 Weight 77.3 kg 75.7 kg General appearance: PRESENT: cooperative, mild distress, well-developed Head exam: PRESENT: atraumatic, normocephalic Ear exam: PRESENT: normal external ear exam Mouth exam: PRESENT: other - BiPAP mask in place Respiratory exam: PRESENT: clear to auscultation lashell, symmetrical, tachypnea. ABSENT: accessory muscle use, rales, rhonchi, wheezes Cardiovascular exam: PRESENT: RRR, +S1, +S2 GI/Abdominal exam: PRESENT: normal bowel sounds, soft. ABSENT: distended, tenderness Rectal exam: PRESENT: deferred Extremities exam: ABSENT: pedal edema Neurological exam: PRESENT: alert, awake, oriented to person, oriented to place, oriented to time, oriented to situation Psychiatric exam: PRESENT: appropriate affect, normal mood. ABSENT: agitated, anxious Focused psych exam: ABSENT: delusional, restlessness Results Laboratory Results: 03/28/19 06:00 03/28/19 06:00 03/16/19 03/16/19 03/16/19 20:45 20:45 21:01 Creatine Kinase 23 L CK-MB (CK-2) Cancelled 0.56 Troponin I Cancelled 0.013 NT-Pro-B Natriuret Pep Cancelled 03/23/19 04:35 Creatine Kinase CK-MB (CK-2) Troponin I NT-Pro-B Natriuret Pep 661 Impressions: Chest/Abdomen CTA 03/16/19 20:53 IMPRESSION: Negative for pulmonary embolus, thoracic aortic aneurysm, or dissection. Severe emphysematous changes. Bibasilar bronchiectasis and scarring. Consolidative change posterior right lung base TECHNICAL DOCUMENTATION: Quality ID # 436: Final reports with documentation of one or more dose reduction techniques (e.g., Automated exposure control, adjustment of the mA and/or kV according to patient size, use of iterative reconstruction technique) copyright 2011 [employer]- All Rights Reserved Chest X-Ray 03/24/19 06:00 IMPRESSION: Interval extubation. Assessment and Plan - Diagnosis (1) Acute on chronic respiratory failure with hypoxia and hypercapnia Is this a current diagnosis for this admission?: Yes Plan: 03/29/2019-the patient was finally extubated. She is still fairly dependent on BiPAP. We will try and wean from BiPAP if possible. Due to her chronic underlying lung disease this will be difficult. (2) COPD exacerbation Is this a current diagnosis for this admission?: Yes Plan: 03/29/2019-continue duo nebs and prednisone (3) Aspiration pneumonia of both lungs Qualifiers: Aspiration pneumonia type: unspecified Lung location: unspecified part of lung Qualified Code(s): J69.0 - Pneumonitis due to inhalation of food and vomit Is this a current diagnosis for this admission?: Yes Plan: The patient received her course of antibiotic therapy. Her reported that she had abnormalities on a barium swallow study in the past. I have asked speech therapy to work with the patient now that she is off of the ventilator. She will need ongoing speech therapy as well as physical therapy post discharge. (4) Dysphagia Qualifiers: Dysphagia type: unspecified Qualified Code(s): R13.10 - Dysphagia, unspecified Is this a current diagnosis for this admission?: Yes Plan: As noted above she has a history of dysphagia. That would likely account for the significantly increased scarring on the right lung versus the left. I have asked speech therapy to assess and work with the patient. (5) Chronic diastolic CHF (congestive heart failure), NYHA class 1 Is this a current diagnosis for this admission?: Yes Plan: 03/29/2019-stable on her current regimen. She was on bisoprolol at home but is currently on metoprolol. I have taken liberty of starting low-dose lisinopril also. Currently not on diuretic therapy. Would monitor intake and output and she may require low-dose furosemide. (6) Hypotension Qualifiers: Hypotension type: other hypotension type Qualified Code(s): I95.89 - Other hypotension Is this a current diagnosis for this admission?: Yes Plan: 03/29/2019-resolved - Time Time Spent with patient: 15-24 minutes Medications reviewed and adjusted accordingly: Yes Anticipated discharge: SNF Within: within 48 hours
[2019-03-29] MEDS: GABAPENTIN 100 MG CAPSULE PO SCH (22:15)
[2019-03-29] MEDS: ROPINIROLE HCL 1 MG TABLET PO SCH (22:15)
[2019-03-30] MEDS: IPRATROPIUM/ALBUTEROL 0.5-2.5 MG/3 ML AMPUL NEB SCH ×5 (03:49→20:30)
[2019-03-30 05:08] LABS: HEMATOCRIT 26.2 % (36.0-47.0); HEMOGLOBIN 8.5 g/dL (12.0-15.5); MEAN CORPUSCULAR HEMOGLOBIN 29.2 pg (27.0-33.4); MEAN CORPUSCULAR HGB CONC 32.6 g/dL (32.0-36.0); MEAN CORPUSCULAR VOLUME 90 fl (80-97); PLATELET COUNT 150 10^3/uL (150-450); RED BLOOD COUNT 2.92 10^6/uL (3.72-5.28); RED CELL DISTRIBUTION WIDTH 16.7 % (11.5-14.0); WHITE BLOOD COUNT 8.4 10^3/uL (4.0-10.5)
[2019-03-30 05:32] LABS: BLOOD UREA NITROGEN 9 mg/dL (7-20); CALCIUM 8.2 mg/dL (8.4-10.2); CHLORIDE 96 mmol/L (98-107); GLUCOSE 78 mg/dL (75-110); POTASSIUM 3.6 mmol/L (3.6-5.0); SODIUM 138.5 mmol/L (137-145)
[2019-03-30] MEDS: LEVOTHYROXINE SODIUM 0.025 MG TABLET PO SCH (05:34)
[2019-03-30] MEDS: HEPARIN SOD (PORCINE) 5,000 UNIT/ML 1 ML SYRINGE SUBCUT SCH ×3 (05:53→21:31)
[2019-03-30 05:57] LABS: CARBON DIOXIDE 41 mmol/L (22-30)
[2019-03-30 06:00] LABS: ANION GAP 2 (5-19)
[2019-03-30] MEDS: ACETAMINOPHEN 325 MG TABLET PO PRN (08:36)
[2019-03-30] MEDS: ROFLUMILAST 500 MCG TABLET PO SCH (10:04)
[2019-03-30] MEDS: DOCUSATE SODIUM 100 MG CAPSULE PO SCH ×2 (10:04→17:49)
[2019-03-30] MEDS: METOPROLOL SUCCINATE 25 MG TAB.SR.24H PO SCH (10:05)
[2019-03-30] MEDS: MONTELUKAST SODIUM 10 MG TABLET PO SCH (10:05)
[2019-03-30] MEDS: FAMOTIDINE 20 MG TABLET PO SCH ×2 (10:05→21:26)
[2019-03-30] MEDS: NYSTATIN TOPICAL POWDER 15 GM TP SCH ×4 (10:05→21:31)
[2019-03-30] MEDS: LISINOPRIL 5 MG TABLET PO SCH (10:05)
[2019-03-30] MEDS: PREDNISONE 20 MG TABLET PO SCH (10:05)
[2019-03-30] MEDS: ZINC OXIDE 20% OINTMENT 28.35 GM TP SCH ×4 (10:07→21:32)
[2019-03-30] MEDS: BENZOCAINE/MENTHOL SORE THROAT LOZENGE BUCCAL SCH ×2 (15:24→17:49)
--- NOTE | 2019-03-30 20:44 | PDOC PROGRESS REPORT ---
Subjective Progress Note for:: 03/30/19 Subjective:: The patient is complaining of a sore throat from the intubation. Reason For Visit: ACUTE RESPIRATORY FAILURE WITH HYPOXIA AND Physical Exam Vital Signs: Temp Pulse Resp BP Pulse Ox 97.7 F 93 18 128/61 H 100 03/30/19 11:32 03/30/19 19:00 03/30/19 16:23 03/30/19 11:32 03/30/19 16:23 Intake & Output 03/29/19 03/30/19 03/31/19 06:59 06:59 06:59 Intake Total 089 984 9924 Output Total 807 480 5715 Balance 342 -50 129 Weight 75.7 kg 72.3 kg General appearance: PRESENT: cooperative, mild distress, well-developed Head exam: PRESENT: atraumatic, normocephalic Ear exam: PRESENT: normal external ear exam Mouth exam: PRESENT: moist, tongue midline, other - On nasal cannula currently Respiratory exam: PRESENT: symmetrical, unlabored, wheezes - Sporadic occasional expiratory wheeze. ABSENT: accessory muscle use, rales, rhonchi, tachypnea - Occasional tachypnea during the day Cardiovascular exam: PRESENT: RRR, +S1, +S2 GI/Abdominal exam: PRESENT: normal bowel sounds, soft. ABSENT: distended, tenderness Rectal exam: PRESENT: deferred Extremities exam: ABSENT: joint swelling, pedal edema Neurological exam: PRESENT: alert, awake, oriented to person, oriented to place, oriented to time, oriented to situation, CN II-XII grossly intact Psychiatric exam: PRESENT: appropriate affect, normal mood. ABSENT: agitated, anxious Focused psych exam: ABSENT: delusional, restlessness Results Laboratory Results: 03/30/19 04:10 03/30/19 04:10 03/30/19 03/30/19 04:10 04:10 WBC 8.4 RBC 2.92 L Hgb 8.5 L Hct 26.2 L MCV 90 MCH 29.2 MCHC 32.6 RDW 16.7 H Plt Count 150 Sodium 138.5 Potassium 3.6 Chloride 96 L Carbon Dioxide 41 H* Anion Gap 2 L BUN 9 Creatinine 0.36 L Est GFR ( Amer) > 60 Est GFR (Non-Af Amer) > 60 Glucose 78 Calcium 8.2 L Magnesium 2.2 03/16/19 03/16/19 03/16/19 20:45 20:45 21:01 Creatine Kinase 23 L CK-MB (CK-2) Cancelled 0.56 Troponin I Cancelled 0.013 NT-Pro-B Natriuret Pep Cancelled 03/23/19 04:35 Creatine Kinase CK-MB (CK-2) Troponin I NT-Pro-B Natriuret Pep 661 Impressions: Chest/Abdomen CTA 03/16/19 20:53 IMPRESSION: Negative for pulmonary embolus, thoracic aortic aneurysm, or dissection. Severe emphysematous changes. Bibasilar bronchiectasis and scarring. Consolidative change posterior right lung base TECHNICAL DOCUMENTATION: Quality ID # 436: Final reports with documentation of one or more dose reduction techniques (e.g., Automated exposure control, adjustment of the mA and/or kV according to patient size, use of iterative reconstruction technique) copyright 2010 [employer]- All Rights Reserved Chest X-Ray 03/24/19 06:00 IMPRESSION: Interval extubation. Assessment and Plan - Diagnosis (1) Acute on chronic respiratory failure with hypoxia and hypercapnia Is this a current diagnosis for this admission?: Yes Plan: 03/29/2019-the patient was finally extubated. She is still fairly dependent on BiPAP. We will try and wean from BiPAP if possible. Due to her chronic underlying lung disease this will be difficult. 03/30/2019-the patient still has scattered wheezing. I will add back budesonide nebulizers and decrease the systemic prednisone. Hopefully the nebulized steroid will be more effective. (2) COPD exacerbation Is this a current diagnosis for this admission?: Yes Plan: 03/29/2019-continue duo nebs and prednisone 03/30/2019-as noted above she has occasional scattered expiratory wheeze. I will add budesonide and decrease the systemic prednisone. She will continue with her Daliresp and Singulair. The patient still requires BiPAP for the majority of the day. She is on it all night. Prognosis for meaningful recovery from a pulmonary standpoint is quite poor. (3) Aspiration pneumonia of both lungs Qualifiers: Aspiration pneumonia type: unspecified Lung location: unspecified part of lung Qualified Code(s): J69.0 - Pneumonitis due to inhalation of food and vomit Is this a current diagnosis for this admission?: Yes Plan: The patient received her course of antibiotic therapy. Her reported that she had abnormalities on a barium swallow study in the past. I have asked speech therapy to work with the patient now that she is off of the ventilator. She will need ongoing speech therapy as well as physical therapy post discharge. 03/30/2019-I did speak with speech therapy. The patient has a Zenker's diverticulum and not dysphasia. There can be occasional dysphasia however the asymmetry of the scarring of her lungs is not likely due to aspiration. It is still felt that this episode of pneumonia was aspiration related. (4) Dysphagia Qualifiers: Dysphagia type: unspecified Qualified Code(s): R13.10 - Dysphagia, unspecified Is this a current diagnosis for this admission?: Yes Plan: As noted above she has a history of dysphagia. That would likely account for the significantly increased scarring on the right lung versus the left. I have asked speech therapy to assess and work with the patient. 03/30/2019-speech therapy reports a Zenker's diverticulum. Typically speech therapy cannot have any effect however we will alter her diet to be a chopped consistency. This will make it easier to eat and less likely to get caught up in the diverticula and also require less work and this will help with her shortness of breath. (5) Chronic diastolic CHF (congestive heart failure), NYHA class 1 Is this a current diagnosis for this admission?: Yes Plan: 03/29/2019-stable on her current regimen. She was on bisoprolol at home but is currently on metoprolol. I have taken liberty of starting low-dose lisinopril also. Currently not on diuretic therapy. Would monitor intake and output and she may require low-dose furosemide. 03/30/2019-still with relatively neutral intake and output fluid balance. Will consider furosemide if the patient appears to be volume overloaded. (6) Hypotension Qualifiers: Hypotension type: other hypotension type Qualified Code(s): I95.89 - Other hypotension Is this a current diagnosis for this admission?: Yes Plan: 03/29/2019-resolved 03/30/2019-the patient now in fact is somewhat hypertensive. (7) Hypertension Qualifiers: Hypertension type: essential hypertension Qualified Code(s): I10 - Essent ial (primary) hypertension Is this a current diagnosis for this admission?: Yes Plan: 03/30/2019-pressure could be aggravated by the steroid therapy. I will add hydrochlorothiazide to complement the metoprolol and lisinopril. Continue to monitor blood pressure. (8) Sore throat Is this a current diagnosis for this admission?: Yes Plan: Secondary to intubation. We will try Cepacol lozenges. - Time Time Spent with patient: 15-24 minutes Medications reviewed and adjusted accordingly: Yes
[2019-03-30] MEDS: ROPINIROLE HCL 1 MG TABLET PO SCH (21:26)
[2019-03-30] MEDS: GABAPENTIN 100 MG CAPSULE PO SCH (21:26)
[2019-03-30] MEDS ORDERED: IRON SUCROSE COMPLEX INJ/PF 100 MG/5 ML SDV IV ONE (22:00)
[2019-03-31] MEDS: IPRATROPIUM/ALBUTEROL 0.5-2.5 MG/3 ML AMPUL NEB SCH ×6 (00:01→20:29)
[2019-03-31] MEDS: LEVOTHYROXINE SODIUM 0.025 MG TABLET PO SCH (05:26)
[2019-03-31] MEDS: HEPARIN SOD (PORCINE) 5,000 UNIT/ML 1 ML SYRINGE SUBCUT SCH ×3 (05:26→22:55)
[2019-03-31] MEDS: ACETAMINOPHEN 325 MG TABLET PO PRN ×2 (05:29→15:20)
[2019-03-31] MEDS: BUDESONIDE NEB 0.5 MG/2 ML AMPUL NEB SCH ×2 (08:03→20:28)
[2019-03-31] MEDS ORDERED: PREDNISONE 20 MG TABLET PO SCH (10:00)
[2019-03-31] MEDS ORDERED: HYDROCHLOROTHIAZIDE 25 MG TABLET PO SCH (10:00)
[2019-03-31] MEDS: BENZOCAINE/MENTHOL SORE THROAT LOZENGE BUCCAL SCH ×3 (10:58→18:40)
[2019-03-31] MEDS: DOCUSATE SODIUM 100 MG CAPSULE PO SCH ×2 (10:59→18:22)
[2019-03-31] MEDS: METOPROLOL SUCCINATE 25 MG TAB.SR.24H PO SCH (10:59)
[2019-03-31] MEDS: ROFLUMILAST 500 MCG TABLET PO SCH (10:59)
[2019-03-31] MEDS: MONTELUKAST SODIUM 10 MG TABLET PO SCH (10:59)
[2019-03-31] MEDS: NYSTATIN TOPICAL POWDER 15 GM TP SCH ×4 (11:01→22:58)
[2019-03-31] MEDS: LISINOPRIL 5 MG TABLET PO SCH (11:03)
[2019-03-31] MEDS: ZINC OXIDE 20% OINTMENT 28.35 GM TP SCH ×4 (11:04→22:57)
[2019-03-31] MEDS: FAMOTIDINE 20 MG TABLET PO SCH ×2 (11:04→22:54)
--- NOTE | 2019-03-31 16:13 | PDOC PROGRESS REPORT ---
Subjective Progress Note for:: 03/21/19 Subjective:: Currently intubated and sedated Reason For Visit: ACUTE RESPIRATORY FAILURE WITH HYPOXIA AND Physical Exam Vital Signs: Temp Pulse Resp BP Pulse Ox 98.1 F 77 22 H 116/64 93 03/21/19 14:15 03/21/19 14:00 03/21/19 14:15 03/21/19 14:15 03/21/19 14:15 Intake & Output 03/20/19 03/21/19 03/22/19 06:59 06:59 06:59 Intake Total 1351 5571 1184 Output Total 750 1037 710 Balance 601 4534 474 Weight 72.2 kg 72.2 kg General appearance: PRESENT: no acute distress, well-developed Head exam: PRESENT: atraumatic, normocephalic Ear exam: PRESENT: normal external ear exam Mouth exam: PRESENT: other - Endotracheal and nasogastric tubes in place Respiratory exam: PRESENT: symmetrical, wheezes. ABSENT: accessory muscle use, rales, rhonchi, tachypnea Cardiovascular exam: PRESENT: RRR, +S1, +S2 Extremities exam: PRESENT: +1 edema - Arms. ABSENT: pedal edema Neurological exam: ABSENT: awake Psychiatric exam: ABSENT: agitated Focused psych exam: ABSENT: restlessness Skin exam: PRESENT: other - Thin skin with multiple ecchymotic lesions upper extremities Results Laboratory Results: 03/21/19 04:24 03/21/19 04:24 03/20/19 03/21/19 03/21/19 17:10 04:24 04:24 WBC RBC Hgb Hct MCV MCH MCHC RDW Plt Count Seg Neutrophils % Lymphocytes % Monocytes % Eosinophils % Basophils % Absolute Neutrophils Absolute Lymphocytes Absolute Monocytes Absolute Eosinophils Absolute Basophils Carbonic Acid 1.83 H 1.71 H HCO3/H2CO3 Ratio 18:1 19:1 ABG pH 7.36 7.39 ABG pCO2 60.7 H 56.7 H ABG pO2 73.9 L 119.3 H ABG HCO3 33.4 H 33.5 H ABG O2 Saturation 93.9 L 98.2 H ABG Base Excess 6.5 7.4 FiO2 55% 55% Sodium 140.5 Potassium 4.1 Chloride 100 Carbon Dioxide 35 H Anion Gap 6 BUN 18 Creatinine 0.32 L Est GFR ( Amer) > 60 Est GFR (Non-Af Amer) > 60 Glucose 144 H Calcium 7.8 L Phosphorus 2.6 Magnesium 1.9 Prealbumin 13.2 L 03/21/19 04:24 WBC 6.3 RBC 2.94 L Hgb 8.5 L Hct 26.0 L MCV 88 MCH 28.9 MCHC 32.7 RDW 17.0 H Plt Count 107 L Seg Neutrophils % Not Reportable Lymphocytes % Not Reportable Monocytes % Not Reportable Eosinophils % Not Reportable Basophils % Not Reportable Absolute Neutrophils Not Reportable Absolute Lymphocytes Not Reportable Absolute Monocytes Not Reportable Absolute Eosinophils Not Reportable Absolute Basophils Not Reportable Carbonic Acid HCO3/H2CO3 Ratio ABG pH ABG pCO2 ABG pO2 ABG HCO3 ABG O2 Saturation ABG Base Excess FiO2 Sodium Potassium Chloride Carbon Dioxide Anion Gap BUN Creatinine Est GFR ( Amer) Est GFR (Non-Af Amer) Glucose Calcium Phosphorus Magnesium Prealbumin 03/16/19 03/16/19 03/16/19 20:45 20:45 21:01 Creatine Kinase 23 L CK-MB (CK-2) Cancelled 0.56 Troponin I Cancelled 0.013 NT-Pro-B Natriuret Pep Cancelled Impressions: Chest/Abdomen CTA 03/16/19 20:53 IMPRESSION: Negative for pulmonary embolus, thoracic aortic aneurysm, or dissection. Severe emphysematous changes. Bibasilar bronchiectasis and scarring. Consolidative change posterior right lung base TECHNICAL DOCUMENTATION: Quality ID # 436: Final reports with documentation of one or more dose reduction techniques (e.g., Automated exposure control, adjustment of the mA and/or kV according to patient size, use of iterative reconstruction technique) copyright 2011 [employer]- All Rights Reserved Chest X-Ray 03/21/19 06:00 IMPRESSION: SLIGHTLY IMPROVED AERATION. Assessment and Plan - Diagnosis (1) Acute on chronic respiratory failure with hypoxia and hypercapnia Is this a current diagnosis for this admission?: Yes Plan: The patient was intubated yesterday. Chest x-ray suggests bilateral pneumonia right worse than left. She has had multiple bouts of pneumonia in the past and is also felt that there is some pulmonary fibrosis. Continue aggressive nebulizer treatments and steroid therapy. Wean from the ventilator as tolerated. (2) COPD exacerbation Is this a current diagnosis for this admission?: Yes Plan: The patient failed BiPAP therapy and therefore has been intubated. We will continue an aggressive inhaler regimen. She is supposed to be on BiPAP at home. Her reports that she does not always wear because she ends up with a lot of air in her stomach and it is quite uncomfortable. Continue antibiotics, inhalers and steroids. (3) Aspiration pneumonia of both lungs Qualifiers: Aspiration pneumonia type: unspecified Lung location: unspecified part of lung Qualified Code(s): J69.0 - Pneumonitis due to inhalation of food and vomit Is this a current diagnosis for this admission?: Yes Plan: The patient's reports an abnormal swallowing study in the past. If the patient survives this episode I will asked speech therapy to evaluate her. The family does not think she ever had speech therapy or dietary suggestions. She will be on broad-spectrum antibiotics for aspiration pneumonia. We will utilize tube feeds for nutrition while intubated. (4) Dysphagia Qualifiers: Dysphagia type: unspecified Qualified Code(s): R13.10 - Dysphagia, unspecified Is this a current diagnosis for this admission?: Yes Plan: As noted above there is history of an abnormal swallowing study. When appropriate I will asked speech therapy to evaluate the patient. (5) Chronic diastolic CHF (congestive heart failure), NYHA class 1 Is this a current diagnosis for this admission?: Yes Plan: The patient does have a history of diastolic heart failure. She has been in negative fluid balance since admission. I will ensure adequate free water with PEG tube flushes. We will continue to monitor fluid balance and adjust medications as required. This does not appear to be an acute factor at this time. (6) Hypotension Qualifiers: Hypotension type: other hypotension type Qualified Code(s): I95.89 - Other hypotension Is this a current diagnosis for this admission?: Yes Plan: The patient did drop her pressure. She is on intravenous Main-Synephrine with fluid resuscitation. We will try and wean her from the pressor therapy as soon as possible. - Time Time Spent with patient: 25-34 minutes Medications reviewed and adjusted accordingly: Yes
--- NOTE | 2019-03-31 16:29 | PDOC TRANSFER SUMMARY ---
General - Admit/Disc Date/PCP Admission Date/Primary Care Provider: 03/16/19 23:37 SUDARSHAN HAYS MD Discharge Date: 03/31/19 - Dictated this evening in preparation for wardrobe consultant transfer - Discharge Diagnosis (1) Acute on chronic respiratory failure with hypoxia and hypercapnia Is this a current diagnosis for this admission?: Yes Summary: The patient has a history of severe COPD complicated by possible pulmonary fibrosis with multiple exacerbations and episodes of pneumonia. The patient was DO NOT RESUSCITATE on admission to the hospital however when she was failing BiPAP she changed her mind and requested intubation. The patient was sent to the intensive care unit and it was questionable if she would tolerate weaning. She did eventually tolerate weaning from the ventilator and now uses the BiPAP. We are trying to wean from BiPAP but she requires it for most of the time including all night. We will continue nebulizer treatments and hope to wean her from the BiPAP if possible. With her limited prognosis in mind, palliative care might like to revisit her CODE STATUS. She is already on their service. (2) COPD exacerbation Is this a current diagnosis for this admission?: Yes Summary: As noted above this is another in many episodes of COPD exacerbation. This time it was associated with pneumonia. She is currently on an aggressive nebulizer regimen. She still requires BiPAP most of the time. The goal would be to try and wean her from her BiPAP. With her history and severity of lung disease this will be a challenge. (3) Aspiration pneumonia of both lungs Is this a current diagnosis for this admission?: Yes Summary: The patient did complete a course of dual antibiotic therapy. The pneumonia has resolved. (4) Dysphagia Is this a current diagnosis for this admission?: Yes Summary: Speech therapy did have a chance to evaluate the patient. She does have a history of a Zenker's diverticulum as opposed to mechanical dysphasia/dysfunc tion of her swallow. Speech therapy indicated that there is no technique or therapeutic intervention available. In fact it is not required. We are going to use a chopped meat diet as this will be easier for the patient to process and possibly not get caught in the diverticulum. (5) Chronic diastolic CHF (congestive heart failure), NYHA class 1 Is this a current diagnosis for this admission?: Yes Summary: Currently asymptomatic. Continue current regimen. (6) Hypotension Is this a current diagnosis for this admission?: Yes Summary: Resolved. The patient required pressor therapy in the ICU she is now back on lisinopril and metoprolol. (7) Hypertension Is this a current diagnosis for this admission?: Yes Summary: The patient had transient hypotension during her ICU stay. She weaned off the pressors. She now is back on lisinopril and metoprolol with hydrochlorothiazide as well. Continue current regimen and monitor blood pressure. (8) Sore throat Is this a current diagnosis for this admission?: Yes Summary: Her sore throat is from the intubation and presence of endotracheal tube for multiple days. I have ordered Cepacol lozenges and the seem to be helping. - Additional Information Resuscitation Status: Full Code Home Medications: Bisoprolol Fumarate [Zebeta 5 mg Tablet] 2.5 mg PO DAILY 01/06/19 Gabapentin [Neurontin 100 mg Capsule] 100 mg PO QHS 01/06/19 Ibuprofen [Motrin 800 mg Tablet] 800 mg PO Q6HP PRN 01/06/19 Ipratropium/Albuterol Sulfate [Duoneb 3 ml Ampul] 1 vial NEB Q4HP PRN 01/06/19 Levocetirizine Dihydrochloride [Xyzal] 5 mg PO QPM 01/06/19 Levothyroxine Sodium [Synthroid 0.025 mg Tablet] 0.025 mg PO Q6AM 01/06/19 Montelukast Sodium [Singulair 10 mg Tablet] 10 mg PO DAILY 01/06/19 Omeprazole 40 mg PO QAM 01/06/19 Ondansetron HCl [Zofran 4 mg Tablet] 4 mg PO DAILYP PRN 01/06/19 Roflumilast [Daliresp 500 mcg Tablet] 500 mcg PO DAILY 01/06/19 Ropinirole HCl [Requip] 1 mg PO QHS 01/06/19 Budesonide/Formoterol Fumarate [Symbicort HFA 160-4.5 mcg Inhaler 6 gm] 2 puff IH Q12 1 Days #1 inhaler 01/12/19 Tiotropium Mchenry [Spiriva Respimat] 2 puff IH DAILY #2 mist.inhal 01/12/19 Albuterol Sulfate [Proventil Hfa] 1 puff IH Q4HP PRN 03/17/19 Cyanocobalamin (Vitamin B-12) [Vitamin B-12 Inj 1000 Mcg/1 ml Vial] 1,000 mcg IM .MONTHLY 03/17/19 Isosorbide Mononitrate [Imdur 30 mg Tablet.er] 15 mg PO DAILY 03/17/19 Prednisone [Deltasone 10 mg Tablet] 20 mg PO .TITRATION 03/17/19 History of Present Illness Admission Date/PCP: 03/16/19 23:37 SUDARSHAN HAYS MD Patient complains of: Shortness of breath History of Present Illness: AUDIE KIMBLE is a 58 year old female with multiple comorbidities and end- stage COPD. The patient was being treated as an outpatient for pneumonia and had recently finished a course of azithromycin and prednisone. The patient continued to have a productive cough. Her fever did resolve. She is exposed to secondhand smoke from her 's smoking. On the day of admission she developed acute onset of severe dyspnea. She should be wearing BiPAP at home but is not compliant. When EMS arrived her oxygen saturation was only 40% on ro om air. She has had multiple previous episodes like this. Imaging revealed a pneumonia. She had an elevated white blood cell count. She was referred to the hospital service for admission. Hospital Course Hospital Course: Please also see above This is a patient with severe COPD who is noncompliant with her BiPAP at home. She is exposed to secondhand smoke from her . She had acute onset of shortness of breath causing her to present to the emergency department. She was recently treated for pneumonia and it was felt that this was a pneumonia failing outpatient therapy. The patient was admitted to medical floor but declined precipitously. She required intubation and mechanical ventilation. Several discussions were had with the family about her very limited prognosis. Eventually she was weaned from the ventilator. She completed her course of antibiotic therapy. She still requires BiPAP for most of the day and all night. She remains on nebulizer treatments. Her hypotension is resolved and she is back on her antihypertensive medications. She has been transitioned to BiPAP and [facility]. She will require ongoing nebulizer treatments as well as her other medications. When able, physical therapy would be of benefit. At this point she is not likely to tolerate much therapy due to her dyspnea. Physical Exam Vital Signs: Temp Pulse Resp BP Pulse Ox 98.0 F 91 20 148/79 H 93 03/31/19 07:57 03/31/19 11:22 03/31/19 11:22 03/31/19 07:57 03/31/19 11:22 Intake & Output 03/30/19 03/31/19 04/01/19 06:59 06:59 06:59 Intake Total 700 1284 Output Total 750 1155 Balance -50 129 Weight 72.3 kg 72.6 kg General appearance: PRESENT: no acute distress, cooperative, well-developed Head exam: PRESENT: atraumatic, normocephalic Ear exam: PRESENT: normal external ear exam Mouth exam: PRESENT: moist, tongue midline Throat exam: ABSENT: post pharyngeal erythema, tonsillar exudate Respiratory exam: PRESENT: clear to auscultation lashell - Still with intermittent congested breath sounds, symmetrical, unlabored. ABSENT: accessory muscle use, rales, rhonchi, wheezes Cardiovascular exam: PRESENT: RRR, +S1, +S2 GI/Abdominal exam: PRESENT: normal bowel sounds, soft. ABSENT: distended, tenderness Rectal exam: PRESENT: deferred Extremities exam: PRESENT: pedal edema - Trace edema lower extremities Musculoskeletal exam: PRESENT: normal inspection Neurological exam: PRESENT: alert, awake, oriented to person, oriented to place, oriented to time, oriented to situation, CN II-XII grossly intact Psychiatric exam: PRESENT: appropriate affect, normal mood. ABSENT: agitated, anxious Focused psych exam: ABSENT: delusional, restlessness Results Laboratory Results: 03/30/19 04:10 03/30/19 04:10 03/16/19 03/16/19 03/16/19 20:45 20:45 21:01 Creatine Kinase 23 L CK-MB (CK-2) Cancelled 0.56 Troponin I Cancelled 0.013 NT-Pro-B Natriuret Pep Cancelled 03/23/19 04:35 Creatine Kinase CK-MB (CK-2) Troponin I NT-Pro-B Natriuret Pep 661 Impressions: Chest/Abdomen CTA 03/16/19 20:53 IMPRESSION: Negative for pulmonary embolus, thoracic aortic aneurysm, or dissection. Severe emphysematous changes. Bibasilar bronchiectasis and scarring. Consolidative change posterior right lung base TECHNICAL DOCUMENTATION: Quality ID # 436: Final reports with documentation of one or more dose reduction techniques (e.g., Automated exposure control, adjustment of the mA and/or kV according to patient size, use of iterative reconstruction technique) copyright 2010 [employer]- All Rights Reserved Chest X-Ray 03/24/19 06:00 IMPRESSION: Interval extubation. Transfer Plan - Disposition Transfer Plan: Transfer to [facility] tomorrow morning - Time Spent with Patient Time spent with patient: Greater than 30 Minutes Qualifiers - * PATIENT BEING DISCHARGED WITH ANY OF THE FOLLOWING DIAGNOSIS: No Acute Heart Failure - Is this a Heart Failure Patient?: No Plan Discharge Plan: Transfer to [facility] facility Time Spent: Greater than 30 Minutes
[2019-03-31] MEDS: GABAPENTIN 100 MG CAPSULE PO SCH (22:54)
[2019-03-31] MEDS: ROPINIROLE HCL 1 MG TABLET PO SCH (22:54)
[2019-04-01] MEDS: IPRATROPIUM/ALBUTEROL 0.5-2.5 MG/3 ML AMPUL NEB SCH ×2 (00:54→04:35)
[2019-04-01 04:33] VITALS: BP 99/88
[2019-04-01] MEDS: ACETAMINOPHEN 325 MG TABLET PO PRN (04:57)
[2019-04-01] MEDS: HEPARIN SOD (PORCINE) 5,000 UNIT/ML 1 ML SYRINGE SUBCUT SCH (06:45)
[2019-04-01] MEDS: LEVOTHYROXINE SODIUM 0.025 MG TABLET PO SCH (06:45)
--- NOTE | 2019-04-04 10:09 | PDOC CONSULTATION ---
Consultation Consult Date: 03/20/19 Attending physician:: GRADY FARRIS Provider Consulted: LURDES ORTEGA Consult reason:: Dyspnea exacerbation of COPD History of Present Illness Admission Date/PCP: 03/16/19 23:37 SUDARSHAN HAYS MD History of Present Illness: AUDIE KIMBLE is a 58 year old female presented with increasing shortness of breath or cough and wheezing patient is long-standing and has a trilogy at home at the time of admission she was hypoxic and tachypneic but she improved somewhat with initial treatments and supplemental oxygen. She denies nausea vomiting diarrhea she admits to some fevers and chills she denies hemoptysis but admits to a cough. Past Medical History Cardiac Medical History: Reports: Congestive Heart Failure - Diastolic Denies: Atrial Fibrillation, DVT, Myocardial Infarction, Hyperlipidema, Hypertension, Pulmonary Embolism Pulmonary Medical History: Reports: Asthma, Bronchitis, Chronic Obstructive Pulmonary Disease (COPD) - home O2 & BIPAP-dependent, Intubation - Now DNR/DNI, Pneumonia, Respiratory Failure - Chronic EENT Medical History: Denies: Cataracts, Ears - Hearing aids Neurological Medical History: Reports: Migraine Denies: Multiple Sclerosis, Seizures Endocrine Medical History: Reports: Obesity Denies: Diabetes Mellitus Type 1, Diabetes Mellitus Type 2, Hyperthyroidism, Hypothyroidism Renal/ Medical History: Denies: Chronic Kidney Disease, End Stage Renal Disease, Nephrolithiasis Malignancy Medical History: Reports: None GI Medical History: Reports: Gastroesophageal Reflux Disease Denies: Cirrhosis, Crohn's Disease, Hepatitis, Ulcerative Colitis Musculoskeltal Medical History: Reports: Arthritis Denies: Gout Skin Medical History: Denies: Eczema, Psoriasis Psychiatric Medical History: Reports: Tobacco Dependency Denies: Alcohol Dependency, Bipolar Disorder, Depression, Substance Abuse Traumatic Medical History: Reports: Pneumothorax - x4 R lung, 2010 when the patient had a right lung bx required a chest tube Denies: Gunshot Wound Hematology: Reports: Anemia Denies: Hemophilia, Bleeding Tendencies Infectious Medical History: Reports: None Past Surgical History Past Surgical History: Reports: Hysterectomy, Tonsillectomy, Tubal Ligation, Other - Lung biopsy Social History Lives with: Spouse/Significant other Smoking Status: Former Smoker Frequency of Alcohol Use: None Hx Recreational Drug Use: No Drugs: None Hx Prescription Drug Abuse: No Do you have pets?: No Have you had any respiratory illnesses as a child?: No Have you been exposed to any sick contacts recently?: No Have you had any recent respiratory illnesses?: Yes Have you travelled outside of [place] in the past 12 months?: No - Advance Directive Resuscitation Status: Full Code Family History Family History: Hyperlipidemia, Hypertension Parental Family History Reviewed: Yes Children Family History Reviewed: Yes Sibling(s) Family History Reviewed.: Yes Medication/Allergy Home Medications: Gabapentin [Neurontin 100 mg Capsule] 100 mg PO QHS 01/06/19 Ibuprofen [Motrin 800 mg Tablet] 800 mg PO Q6HP PRN 01/06/19 Levocetirizine Dihydrochloride [Xyzal] 5 mg PO QPM 01/06/19 Levothyroxine Sodium [Synthroid 0.025 mg Tablet] 0.025 mg PO Q6AM 01/06/19 Montelukast Sodium [Singulair 10 mg Tablet] 10 mg PO DAILY 01/06/19 Omeprazole 40 mg PO QAM 01/06/19 Roflumilast [Daliresp 500 mcg Tablet] 500 mcg PO DAILY 01/06/19 Ropinirole HCl [Requip] 1 mg PO QHS 01/06/19 Budesonide/Formoterol Fumarate [Symbicort HFA 160-4.5 mcg Inhaler 6 gm] 2 puff IH Q12 1 Days #1 inhaler 01/12/19 Tiotropium [place] [Spiriva Respimat] 2 puff IH DAILY #2 mist.inhal 01/12/19 Albuterol Sulfate [Proventil Hfa] 1 puff IH Q4HP PRN 03/17/19 Cyanocobalamin (Vitamin B-12) [Vitamin B-12 Inj 1000 Mcg/1 ml Vial] 1,000 mcg IM .MONTHLY 03/17/19 Isosorbide Mononitrate [Imdur 30 mg Tablet.er] 15 mg PO DAILY 03/17/19 Benzocaine/Menthol [Chloraseptic Sore Throat Lozenge] 1 each BUCCAL TID lozenge 04/01/19 Budesonide [Pulmicort Neb 0.5 mg/2 ml Ampul] 0.5 mg NEB RTQ12 ampul.neb 04/01/19 Docusate Sodium [Colace 100 mg Capsule] 100 mg PO BID capsule 04/01/19 Hydrochlorothiazide [Hydrodiuril 25 mg Tablet] 25 mg PO DAILY tablet 04/01/19 Ipratropium/Albuterol Sulfate [Duoneb 3 ml Ampul] 3 ml [facility] RTQ4 vial.neb 04/01/19 Lisinopril [Prinivil 5 mg Tablet] 5 mg PO DAILY tablet 04/01/19 Metoprolol Succinate [Toprol Xl 25 mg Tab.sr] 25 mg PO DAILY tab.sr.24h 04/01/19 Nystatin [Mycostatin Topical Powder 15 gm] 1 applic TP QID bottle 04/01/19 Prednisone [Deltasone 20 mg Tablet] 40 mg PO DAILY tablet 04/01/19 Zinc Oxide [Zinc Oxide 20% Ointment 28.35 gm] 1 applic TP QID tube 04/01/19 Allergies/Adverse Reactions: doxepin [Doxepin] Allergy (Verified 09/30/18 16:24) Shortness of Breath, Swelling etodolac [Etodolac] Allergy (Verified 09/30/18 16:24) loratadine [Loratadine] Allergy (Verified 09/30/18 16:24) Shortness of Breath, Swelling meloxicam [Meloxicam] Allergy (Verified 09/30/18 16:24) Sulfa (Sulfonamide Antibiotics) Allergy (Verified 09/30/18 16:24) Shortness of Breath, Swelling Review of Systems Constitutional: PRESENT: fatigue Eyes: ABSENT: visual disturbances Ears: ABSENT: hearing changes Nose, Mouth, and Throat: PRESENT: sore throat. ABSENT: mouth pain Cardiovascular: PRESENT: dyspnea on exertion, edema, orthropnea. ABSENT: pa lpitations Respiratory: PRESENT: cough, dyspnea. ABSENT: hemoptysis Gastrointestinal: ABSENT: abdominal pain, bloating, coffee ground emesis, hematemesis, hematochezia, melena Integumentary: ABSENT: pruritus, rash Neurological: ABSENT: abnormal gait, abnormal movements, abnormal speech, frequent falls, lack of coordination, memory loss Psychiatric: ABSENT: hallucinations, homidical ideation, suicidal ideation Endocrine: ABSENT: cold intolerance, heat intolerance Hematologic/Lymphatic: PRESENT: easy bruising Allergic/Immunologic: PRESENT: seasonal rhinorrhea Physical Exam Vital Signs: Temp Pulse Resp BP Pulse Ox 99.7 F 112 H 22 H 113/68 93 03/20/19 16:15 03/20/19 14:00 03/20/19 16:15 03/20/19 16:15 03/20/19 16:22 Intake & Output 03/19/19 03/20/19 03/21/19 06:59 06:59 06:59 Intake Total 1633 1351 2354 Output Total 3052 804 257 Balance -[phone] Weight 68.7 kg General appearance: PRESENT: cooperative, disheveled, mild distress Head exam: PRESENT: atraumatic, normocephalic Eye exam: PRESENT: conjunctiva pale, EOMI. ABSENT: nystagmus Mouth exam: PRESENT: dry mucosa, neck supple, tongue midline Teeth exam: PRESENT: edentulous Neck exam: ABSENT: carotid bruit, full ROM, JVD, lymphadenopathy, meningismus, tenderness, thyromegaly, tracheal deviation, tracheostomy, other Respiratory exam: PRESENT: crackles, decreased breath sounds, prolonged expiratory phas, rales, rhonchi, tachypnea, wheezes. ABSENT: retraction Cardiovascular exam: PRESENT: RRR, +S1, +S2, tachycardia Pulses: PRESENT: normal radial pulses GI/Abdominal exam: PRESENT: soft. ABSENT: mass, tenderness Gentrourinary exam: ABSENT: indwelling catheter Extremities exam: ABSENT: calf tenderness, clubbing, joint swelling, pedal edema Musculoskeletal exam: ABSENT: ambulatory, deformity, dislocation Neurological exam: PRESENT: altered, awake Psychiatric exam: PRESENT: appropriate affect Skin exam: PRESENT: dry, warm Results Laboratory Results: 03/19/19 05:57 03/19/19 05:57 03/20/19 03/20/19 00:25 06:53 Carbonic Acid 3.39 H 2.25 H HCO3/H2CO3 Ratio 14:1 20:1 ABG pH 7.26 L 7.41 ABG pCO2 112.6 H* 74.7 H* ABG pO2 60.6 L 62.6 L ABG HCO3 49.5 H 46.7 H ABG O2 Saturation 84.9 L 91.1 L ABG Base Excess 17.9 19.0 FiO2 50% 60% 03/16/19 03/16/19 03/16/19 20:45 20:45 21:01 Creatine Kinase 23 L CK-MB (CK-2) Cancelled 0.56 Troponin I Cancelled 0.013 NT-Pro-B Natriuret Pep Cancelled Impressions: Chest/Abdomen CTA 03/16/19 20:53 IMPRESSION: Negative for pulmonary embolus, thoracic aortic aneurysm, or dissection. Severe emphysematous changes. Bibasilar bronchiectasis and scarring. Consolidative change posterior right lung base TECHNICAL DOCUMENTATION: Quality ID # [id number]: Final reports with documentation of one or more dose reduction techniques (e.g., Automated exposure control, adjustment of the mA and/or kV according to patient size, use of iterative reconstruction technique) copyright 2011 [employer]- All Rights Reserved Chest X-Ray 03/20/19 00:00 IMPRESSION: 1. Improving aeration in the right inferior hemithorax but worsening aeration in the right perihilar region concerning for pneumonia. 2. Patchy parenchymal opacification in the left perihilar region also suspicious for an infectious or inflammatory infiltrate. 3. Underlying emphysema. 4. Life support lines and tubes in grossly satisfactory position. Assessment & Plan - Diagnosis (1) Acute and chronic respiratory failure with hypercapnia Is this a current diagnosis for this admission?: Yes Plan: Judicious use of oxygen (2) Aspiration pneumonia of both lungs Qualifiers: Aspiration pneumonia type: unspecified Lung location: unspecified part of lung Qualified Code(s): J69.0 - Pneumonitis due to inhalation of food and vomit Is this a current diagnosis for this admission?: Yes Plan: Continue current antibiotic therapy (3) Sepsis Qualifiers: Sepsis type: Pseudomonas Qualified Code(s): A41.52 - Sepsis due to Pseudomonas Is this a current diagnosis for this admission?: Yes Plan: no yet on vasopressors (4) Tobacco dependency Is this a current diagnosis for this admission?: Yes Plan: Stop smoking discussed risk and dangers associated with continued tobacco use particularly in the face of alpha-1 antitrypsin deficiency (5) [id number] deficiency Is this a current diagnosis for this admission?: Yes Plan: Stop smoking
== END 2019-04-01 08:33 | DRG 207 ==
LOC: ER 20:29 → EH 23:37 → 3W 03-17 01:25 → ICU 03-20 05:37 → 3W 03-24 12:20
PROVIDERS: ADMIT Emergency Medicine; ATTEND Emergency Medicine
PROC: 5A1955Z Respiratory Ventilation, Greater than 96 Consecutive Hours (ICD-10-PCS; principal; 2019-03-20)
PROC: 02HV33Z Insertion of Infusion Device into Superior Vena Cava, Percutaneous Approach (ICD-10-PCS; 2019-03-20)
PROC: 0BH17EZ Insertion of Endotracheal Airway into Trachea, Via Natural or Artificial Opening (ICD-10-PCS; 2019-03-20)
DX: J96.22 Acute and chronic respiratory failure with hypercapnia (principal); J69.0 Pneumonitis due to inhalation of food and vomit; I50.32 Chronic diastolic (congestive) heart failure; J44.1 Chronic obstructive pulmonary disease with (acute) exacerbation; J96.21 Acute and chronic respiratory failure with hypoxia; E03.9 Hypothyroidism, unspecified; K21.9 Gastro-esophageal reflux disease without esophagitis; D64.9 Anemia, unspecified; R13.10 Dysphagia, unspecified; J84.10 Pulmonary fibrosis, unspecified; D72.829 Elevated white blood cell count, unspecified; I87.2 Venous insufficiency (chronic) (peripheral); I95.9 Hypotension, unspecified; J02.9 Acute pharyngitis, unspecified; G43.909 Migraine, unspecified, not intractable, without status migrainosus; E66.9 Obesity, unspecified; Z99.81 Dependence on supplemental oxygen; Z77.22 Contact with and (suspected) exposure to environmental tobacco smoke (acute) (chronic); Z87.891 Personal history of nicotine dependence; Z88.2 Allergy status to sulfonamides; Z88.8 Allergy status to other drugs, medicaments and biological substances; Z79.890 Hormone replacement therapy; Z79.51 Long term (current) use of inhaled steroids; Z82.49 Family history of ischemic heart disease and other diseases of the circulatory system; Z78.1 Physical restraint status
CPT/HCPCS: 31500; 36415; 36600; 71045; 71275; 80048; 80053; 80202; 81001; 82272; 82550; 82553; 82607; 82728; 82746; 82803; 82962; 83540; 83550; 83735; 83880; 84100; 84134; 84484; 85025; 85027; 85045; 87040; 87070; 87077; 87186; 87205; 93005; 93010; 94002; 94003; 94640; 94660; 96365; 96368; 96375; 99291; J0330; J0696; J1100; J1642; J1644; J1756; J1940; J2185; J2250; J2370; J2543; J2704; J2920; J2930; J3360; J3370; J3490; J7030; J7050; J7060; J7512; J7614; J7620

== ENCOUNTER 2019-04-25 15:48 | Inpatient (IN) | payer MEDICARE ==
--- NOTE | 2019-04-25 16:22 | ER Document Report ---
ED Medical Screen (RME) - General Chief Complaint: Chest Pain Stated Complaint: CHEST PAIN Time Seen by Provider: 04/25/19 16:18 Primary Care Provider: SUDARSHAN HAYS MD [Primary Care Provider] - Follow up as needed Mode of Arrival: Wheelchair Information source: Patient Notes: 58-year-old female presented to ED for complaint of left-sided chest pain tightness wheezing. She states she called her primary care and they did not want to put her on antibiotics again until she was examined by a physician. States she has a history of COPD pneumonia right-sided heart enlarged from her COPD. She is a former smoker but does not smoke at this time. She states she does not drink alcohol or do any drugs. She lives with family. She has a history of tonsillectomy hysterectomy. Patient is alert oriented respirations regular and unlabored speaking in full sentences. She is on home O2. I have greeted and performed a rapid initial assessment of this patient. A comprehensive ED assessment and evaluation of the patient, analysis of test results and completion of medical decision making process will be conducted by an additional ED providers. Dictation of this chart was performed using voice recognition software; therefore, there may be some unintended grammatical errors. TRAVEL OUTSIDE OF THE [place] IN LAST 30 DAYS: No - Related Data Allergies/Adverse Reactions: doxepin [Doxepin] Allergy (Verified 09/30/18 16:24) Shortness of Breath, Swelling etodolac [Etodolac] Allergy (Verified 09/30/18 16:24) loratadine [Loratadine] Allergy (Verified 09/30/18 16:24) Shortness of Breath, Swelling meloxicam [Meloxicam] Allergy (Verified 09/30/18 16:24) Sulfa (Sulfonamide Antibiotics) Allergy (Verified 09/30/18 16:24) Shortness of Breath, Swelling Past Medical History - Past Medical History Cardiac Medical History: Reports: Hx Congestive Heart Failure - Diastolic Denies: Hx Atrial Fibrillation, Hx DVT, Hx Heart Attack, Hx Hypercholesterolemia, Hx Hypertension, Hx Pulmonary Embolism Pulmonary Medical History: Reports: Hx Asthma, Hx Bronchitis, Hx COPD - home O2 & BIPAP-dependent, Hx Pneumonia, Hx Intubation - Now DNR/DNI, Hx Respiratory Failure - Chronic Neurological Medical History: Reports: Hx Migraine. Denies: Hx Seizures Endocrine Medical History: Denies: Hx Diabetes Mellitus Type 1, Hx Diabetes Mellitus Type 2, Hx Hyperthyroidism, Hx Hypothyroidism Renal/ Medical History: Denies: Hx End Stage Renal Disease, Hx Peritoneal Dialysis GI Medical History: Reports: Hx Gastroesophageal Reflux Disease. Denies: Hx Cirrhosis, Hx Crohn's Disease, Hx Hepatitis, Hx Ulcerative Colitis Musculoskeltal Medical History: Reports Hx Arthritis, Denies Hx Gout, Reports Hx Muscle Weakness Skin Medical History: Denies Hx Eczema, Denies Hx Psoriasis Psychiatric Medical History: Denies: Hx Bipolar Disorder, Hx Depression Traumatic Medical History: Reports: Hx Pneumothorax - x4 R lung, 2010 when the patient had a right lung bx required a chest tube. Denies: Hx Gunshot Wound Infectious Medical History: Denies: Hx Hepatitis Past Surgical History: Reports: Hx Gynecologic Surgery, Hx Hysterectomy, Hx Tonsillectomy, Hx Tubal Ligation, Other - Lung biopsy - Immunizations Hx Diphtheria, Pertussis, Tetanus Vaccination: No History of Influenza Vaccine for 07/2017 - 12/2017 Season: Yes Influenza Administration Date for 07/2017 - 12/2017 Season: 07/01/17 Physical Exam - Vital signs Vitals: Temp Pulse Resp BP Pulse Ox 97.4 F 89 16 135/77 H 94 04/25/19 15:57 04/25/19 15:57 04/25/19 15:57 04/25/19 15:57 04/25/19 15:57 Course - Vital Signs Vital signs: Temp Pulse Resp BP Pulse Ox 97.4 F 89 16 135/77 H 94 04/25/19 15:57 04/25/19 15:57 04/25/19 15:57 04/25/19 15:57 04/25/19 15:57 Doctor's Discharge - Discharge Referrals: SUDARSHAN HAYS MD [Primary Care Provider] - Follow up as needed
[2019-04-25 16:49] LABS: ABSOLUTE LYMPHOCYTES (AUTO) 0.7 10^3/uL (0.5-4.7); ABSOLUTE MONOCYTES (AUTO) 0.3 10^3/uL (0.1-1.4); ABSOLUTE NEUT (AUTO) 8.6 10^3/uL (1.7-8.2); BASOPHILS % (AUTO) 0.4 % (0-2); EOSINOPHILS % (AUTO) 0.1 % (0-6); HEMATOCRIT 29.4 % (36.0-47.0); LYMPHOCYTES % (AUTO) 7.1 % (13-45); MEAN CORPUSCULAR VOLUME 88 fl (80-97); MONOCYTES % (AUTO) 3.5 % (3-13); PLATELET COUNT 179 10^3/uL (150-450); RED BLOOD COUNT 3.33 10^6/uL (3.72-5.28); RED CELL DISTRIBUTION WIDTH 17.4 % (11.5-14.0); SEGMENTED NEUTROPHILS % (AUTO) 88.9 % (42-78); TOTAL CELLS COUNTED % (AUTO) 100 %; WHITE BLOOD COUNT 9.6 10^3/uL (4.0-10.5)
--- NOTE | 2019-04-25 17:01 | RADIOLOGY REPORT (SQ) ---
EXAM DESCRIPTION: CHEST 2 VIEWS COMPLETED DATE/TIME: 04/25/2019 4:38 pm REASON FOR STUDY: Left-sided chest pain tightness left lung, wheezin COMPARISON: 03/24/2019 EXAM PARAMETERS: NUMBER OF VIEWS: two views TECHNIQUE: Digital Frontal and Lateral radiographic views of the chest acquired. RADIATION DOSE: NA LIMITATIONS: none FINDINGS: LUNGS AND PLEURA: Sheath diffuse emphysematous changes throughout both lungs. Flattening of the hemidiaphragms. No pneumothorax. MEDIASTINUM AND HILAR STRUCTURES: No masses or contour abnormalities. HEART AND VASCULAR STRUCTURES: Heart normal size. No evidence for failure. BONES: No acute findings. HARDWARE: None in the chest. OTHER: No other significant finding. IMPRESSION: Severe emphysema. TECHNICAL DOCUMENTATION: JOB ID: [id number] [employer]- All Rights Reserved Reading location - IP/workstation name: [email or web address]
[2019-04-25 17:12] LABS: ALANINE AMINOTRANSFERASE 17 U/L (9-52); ALKALINE PHOSPHATASE 46 U/L (38-126); ANION GAP 5 (5-19); ASPARTATE AMINO TRANSFERASE 16 U/L (14-36); BILIRUBIN,DIRECT 0.2 mg/dL (0.0-0.4); BILIRUBIN,TOTAL 0.4 mg/dL (0.2-1.3); BLOOD UREA NITROGEN 11 mg/dL (7-20); CARBON DIOXIDE 35 mmol/L (22-30); CHLORIDE 98 mmol/L (98-107); GLUCOSE 87 mg/dL (75-110); POTASSIUM 5.6 mmol/L (3.6-5.0); SODIUM 137.7 mmol/L (137-145); TOTAL PROTEIN 6.3 g/dL (6.3-8.2)
[2019-04-25 17:23] LABS: CREATINE KINASE MB 0.67 ng/mL (<4.55); TROPONIN I < 0.012 ng/mL
--- NOTE | 2019-04-25 19:26 | EKG REPORT ---
SEVERITY:- NORMAL ECG - SINUS RHYTHM : Confirmed by: Shana Greene MD 25-Apr-2019 19:25:53
[2019-04-25] MEDS ORDERED: IPRATROPIUM/ALBUTEROL 0.5-2.5 MG/3 ML AMPUL NEB SCH (20:00)
[2019-04-25] MEDS ORDERED: IPRATROPIUM/ALBUTEROL 0.5-2.5 MG/3 ML AMPUL NEB ONE (20:00)
[2019-04-25] MEDS ORDERED: METHYLPREDNISOLONE INJ 125 MG/2 ML SDV IV ONE (21:22)
--- NOTE | 2019-04-25 21:25 | ER Document Report ---
ED General - General Chief Complaint: Shortness Of Breath Stated Complaint: Shortness of Breath Time Seen by Provider: 04/25/19 16:18 Mode of Arrival: Wheelchair Notes: Patient is a 58-year-old female with a history of emphysema that comes to the emergency department for chief complaint of tightness along the left side of her chest since yesterday, she states that she was checked by her home health nurse today and she was told she was wheezing, she called her primary care provider for antibiotics and he advised to be evaluated in the emergency department per patient. She denies fever/chills, nausea/vomiting. She denies current complaints but states that her ability to walk across the room is not as good as it usually is. Patient is on 4 L nasal cannula at all times, 10 mg of prednisone daily, former smoker. She also reports a history of diastolic heart failure, hysterectomy, denies medical history otherwise. TRAVEL OUTSIDE OF THE [place] IN LAST 30 DAYS: No - Related Data Allergies/Adverse Reactions: doxepin [Doxepin] Allergy (Verified 09/30/18 16:24) Shortness of Breath, Swelling etodolac [Etodolac] Allergy (Verified 09/30/18 16:24) loratadine [Loratadine] Allergy (Verified 09/30/18 16:24) Shortness of Breath, Swelling meloxicam [Meloxicam] Allergy (Verified 09/30/18 16:24) Sulfa (Sulfonamide Antibiotics) Allergy (Verified 09/30/18 16:24) Shortness of Breath, Swelling Past Medical History - General Information source: Patient - Social History Smoking Status: Former Smoker Frequency of alcohol use: None Drug Abuse: None Lives with: Family Family History: Hyperlipidemia, Hypertension - Past Medical History Cardiac Medical History: Reports: Hx Congestive Heart Failure - Diastolic Denies: Hx Atrial Fibrillation, Hx DVT, Hx Heart Attack, Hx Hypercholesterolemia, Hx Hypertension, Hx Pulmonary Embolism Pulmonary Medical History: Reports: Hx Asthma, Hx Bronchitis, Hx COPD - home O2 & BIPAP-dependent, Hx Pneumonia, Hx Intubation - Now DNR/DNI, Hx Respiratory Failure - Chronic Neurological Medical History: Reports: Hx Migraine. Denies: Hx Seizures Endocrine Medical History: Denies: Hx Diabetes Mellitus Type 1, Hx Diabetes Mellitus Type 2, Hx Hyperthyroidism, Hx Hypothyroidism Renal/ Medical History: Denies: Hx End Stage Renal Disease, Hx Peritoneal Dialysis GI Medical History: Reports: Hx Gastroesophageal Reflux Disease. Denies: Hx Ci rrhosis, Hx Crohn's Disease, Hx Hepatitis, Hx Ulcerative Colitis Musculoskeletal Medical History: Reports Hx Arthritis, Denies Hx Gout, Reports Hx Muscle Weakness Skin Medical History: Denies Hx Eczema, Denies Hx Psoriasis Psychiatric Medical History: Denies: Hx Bipolar Disorder, Hx Depression Traumatic Medical History: Reports: Hx Pneumothorax - x4 R lung, 2010 when the patient had a right lung bx required a chest tube. Denies: Hx Gunshot Wound Infectious Medical History: Denies: Hx Hepatitis Past Surgical History: Reports: Hx Gynecologic Surgery, Hx Hysterectomy, Hx Tonsillectomy, Hx Tubal Ligation, Other - Lung biopsy - Immunizations Hx Diphtheria, Pertussis, Tetanus Vaccination: No Hx Pneumococcal Vaccination: 07/19/18 Review of Systems - Review of Systems Constitutional: No symptoms reported EENT: No symptoms reported Cardiovascular: No symptoms reported Respiratory: See HPI Gastrointestinal: No symptoms reported Genitourinary: No symptoms reported Female Genitourinary: No symptoms reported Musculoskeletal: No symptoms reported Skin: No symptoms reported Hematologic/Lymphatic: No symptoms reported Neurological/Psychological: No symptoms reported Physical Exam - Vital signs Vitals: Temp Pulse Resp BP Pulse Ox 97.4 F 89 16 135/77 H 94 04/25/19 15:57 04/25/19 15:57 04/25/19 15:57 04/25/19 15:57 04/25/19 15:57 - Notes Notes: GENERAL: Patient is shaky but otherwise alert, well-appearing, conversational HEAD: Normocephalic, atraumatic. EYES: Pupils equal, round, and reactive to light. Extraocular movements intact. ENT: Oral mucosa moist, tongue midline. Oropharynx unremarkable. Airway patent. Nares patent, no nasal septal hematoma, TM's intact. NECK: Full range of motion. Supple. Trachea midline. LUNGS: Very decreased breath sounds bilaterally. A few scattered expiratory wheezes. Borderline tachypnea. No respiratory distress. HEART: Regular rate and rhythm. No murmur ABDOMEN: Soft, non-tender. Non-distended. Bowel sounds present in all 4 quadrants. GENITOURINARY: Deferred EXTREMITIES: Moves all 4 extremities spontaneously. No edema, normal radial and dorsalis pedis pulses bilaterally. No cyanosis. BACK: no cervical, thoracic, lumbar midline tenderness. No saddle anesthesia, normal distal neurovascular exam. Moves all extremities in full range of motion. NEUROLOGICAL: Alert and oriented x3. Normal speech. Cranial nerves II through XII grossly intact. SKIN: Warm, dry, normal turgor. No rashes or lesions noted. Course - Re-evaluation Re-evalutation: Patient is shaky from recent DuoNeb treatments, however her lungs are clear, she is not hypoxic on her normal oxygen, she is not in distress and can speak in full sentences. She has no lower extremity swelling. Given Solu-Medrol. Chest x-ray unremarkable. EKG without significant change from prior. Troponin is negative. CBC, chemistry nonspecific. 04/26/19 Initial venous blood gas reported to be defective. This had to be repeated. This did cause significant time delay. Finally this was repeated, this is unremarkable, improved from prior. Patient was ambulated, however she did very poorly. She became very out of breath, her oxygen saturation dropped down to 83% on room air. She states she is uncomfortable going home. She states she usually drops down to 89 to 90% on room air with ambulation and does much better than this. Will discuss with hospitalist for admission for COPD exacerbation with hypoxia. Discussed with Dr. Jacobo. Discussed with Dr. David, patient admitted to telemetry observation. - Vital Signs Vital signs: Temp Pulse Resp BP Pulse Ox 97.8 F 93 20 120/60 99 04/26/19 04:50 04/26/19 04:52 04/26/19 04:50 04/26/19 04:50 04/26/19 04:50 - Laboratory Result Diagrams: 04/25/19 16:25 04/25/19 16:25 Laboratory results interpreted by me: 04/25/19 04/25/19 04/26/19 16:25 16:25 00:45 RBC 3.33 L Hgb 10.0 L Hct 29.4 L RDW 17.4 H Seg Neutrophils % 88.9 H Lymphocytes % 7.1 L Absolute Neutrophils 8.6 H VBG HCO3 35.1 H Potassium 5.6 H Carbon Dioxide 35 H Discharge - Discharge Clinical Impression: Wheezing, Cough, COPD exacerbation, Hypoxia Condition: Stable Disposition: ADMITTED OBSERVATION Admitting Provider: Frankie (Hospitalist) Unit Admitted: Telemetry
[2019-04-26 01:10] LABS: VENOUS BLOOD BASE EXCESS 7.6 mmol/L; VENOUS BLOOD HCO3 35.1 mmol/L (20-32); VENOUS BLOOD PCO2 62.9 mmHg (35-63); VENOUS BLOOD PH 7.36 (7.30-7.42)
[2019-04-26] MEDS ORDERED: IPRATROPIUM/ALBUTEROL 0.5-2.5 MG/3 ML AMPUL NEB ONE (02:26)
[2019-04-26] MEDS ORDERED: HYDRALAZINE HCL INJ/PF 20 MG/1 ML SDV IV PRN (02:35)
[2019-04-26] MEDS ORDERED: IPRATROPIUM/ALBUTEROL 0.5-2.5 MG/3 ML AMPUL NEB PRN (02:36)
[2019-04-26] MEDS ORDERED: GUAIFENESIN SYRP 200 MG/10 ML UDC PO PRN (02:36)
[2019-04-26] MEDS ORDERED: AZITHROMYCIN INJ 500 MG VIAL IV PRN (02:43)
[2019-04-26] MEDS ORDERED: LACTULOSE SYRUP 20 GM/30 ML UDCUP PO ONE (03:00)
--- NOTE | 2019-04-26 04:33 | PDOC H&P ---
History of Present Illness Admission Date/PCP: 04/26/19 02:44 Patient complains of: Shortness of breath History of Present Illness: AUDIE KIMBLE is a 58 year old female with a past medical history of diastolic heart failure, pulmonary hypertension, anemia, thrombocytopenia, persistent tobacco dependence, alpha-1 antitrypsin deficiency, steroid and oxygen dependent COPD with chronic respiratory failure on trilogy. She presents with 48 hours of rhinorrhea, postnasal drip, nonproductive cough and shortness of breath. In the emergency room she is found to have hypoxia in the 80s, tachypnea, tachycardia, retractions and use of accessory muscles. Imaging reveals severe COPD, labs reveal hyperkalemia, chronic compensated respiratory acidosis. She is referred to the hospitalist for admission. She denies fever, chest pain, nausea vomiting or recent change of medications. Past Medical History Cardiac Medical History: Reports: Congestive Heart Failure - Diastolic Denies: Atrial Fibrillation, DVT, Myocardial Infarction, Hyperlipidema, Hypertension, Pulmonary Embolism Pulmonary Medical History: Reports: Asthma, Bronchitis, Chronic Obstructive Pulmonary Disease (COPD) - home O2 & BIPAP-dependent, Intubation - Now DNR/DNI, Pneumonia, Respiratory Failure - Chronic Neurological Medical History: Reports: Migraine Denies: Seizures Endocrine Medical History: Denies: Diabetes Mellitus Type 1, Diabetes Mellitus Type 2, Hyperthyroidism, Hypothyroidism Renal/ Medical History: Denies: End Stage Renal Disease GI Medical History: Reports: Gastroesophageal Reflux Disease Denies: Cirrhosis, Crohn's Disease, Hepatitis, Ulcerative Colitis Musculoskeltal Medical History: Reports: Arthritis Denies: Gout Skin Medical History: Denies: Eczema, Psoriasis Psychiatric Medical History: Denies: Bipolar Disorder, Depression Traumatic Medical History: Reports: Pneumothorax - x4 R lung, 2010 when the patient had a right lung bx required a chest tube Denies: Gunshot Wound Hematology: Reports: Anemia Denies: Hemophilia, Bleeding Tendencies Past Surgical History Past Surgical History: Reports: Hysterectomy, Tonsillectomy, Tubal Ligation, Other - Lung biopsy Social History Information Source: Patient Lives with: Spouse/Significant other Smoking Status: Former Smoker Frequency of Alcohol Use: None Hx Recreational Drug Use: No Drugs: None Hx Prescription Drug Abuse: No - Advance Directive Resuscitation Status: Full Code Family History Family History: Hyperlipidemia, Hypertension Parental Family History Reviewed: Yes Children Family History Reviewed: Yes Sibling(s) Family History Reviewed.: Yes Medication/Allergy Home Medications: Gabapentin [Neurontin 100 mg Capsule] 100 mg PO QHS 01/06/19 Ibuprofen [Motrin 800 mg Tablet] 800 mg PO Q6HP PRN 01/06/19 Levocetirizine Dihydrochloride [Xyzal] 5 mg PO QPM 01/06/19 Levothyroxine Sodium [Synthroid 0.025 mg Tablet] 0.025 mg PO Q6AM 01/06/19 Montelukast Sodium [Singulair 10 mg Tablet] 10 mg PO DAILY 01/06/19 Omeprazole 40 mg PO QAM 01/06/19 Roflumilast [Daliresp 500 mcg Tablet] 500 mcg PO DAILY 01/06/19 Ropinirole HCl [Requip] 1 mg PO QHS 01/06/19 Budesonide/Formoterol Fumarate [Symbicort HFA 160-4.5 mcg Inhaler 6 gm] 2 puff IH Q12 1 Days #1 inhaler 01/12/19 Tiotropium [place] [Spiriva Respimat] 2 puff IH DAILY #2 mist.inhal 01/12/19 Albuterol Sulfate [Proventil Hfa] 1 puff IH Q4HP PRN 03/17/19 Cyanocobalamin (Vitamin B-12) [Vitamin B-12 Inj 1000 Mcg/1 ml Vial] 1,000 mcg IM .MONTHLY 03/17/19 Isosorbide Mononitrate [Imdur 30 mg Tablet.er] 15 mg PO DAILY 03/17/19 Benzocaine/Menthol [Chloraseptic Sore Throat Lozenge] 1 each BUCCAL TID lozenge 04/01/19 Budesonide [Pulmicort Neb 0.5 mg/2 ml Ampul] 0.5 mg NEB RTQ12 ampul.neb 04/01/19 Docusate Sodium [Colace 100 mg Capsule] 100 mg PO BID capsule 04/01/19 Hydrochlorothiazide [Hydrodiuril 25 mg Tablet] 25 mg PO DAILY tablet 04/01/19 Ipratropium/Albuterol Sulfate [Duoneb 3 ml Ampul] 3 ml NEB RTQ4 vial.neb 04/01/19 Lisinopril [Prinivil 5 mg Tablet] 5 mg PO DAILY tablet 04/01/19 Metoprolol Succinate [Toprol Xl 25 mg Tab.sr] 25 mg PO DAILY tab.sr.24h 04/01/19 Nystatin [Mycostatin Topical Powder 15 gm] 1 applic TP QID bottle 04/01/19 Prednisone [Deltasone 20 mg Tablet] 40 mg PO DAILY tablet 04/01/19 Zinc Oxide [Zinc Oxide 20% Ointment 28.35 gm] 1 applic TP QID tube 04/01/19 Allergies/Adverse Reactions: doxepin [Doxepin] Allergy (Verified 09/30/18 16:24) Shortness of Breath, Swelling etodolac [Etodolac] Allergy (Verified 09/30/18 16:24) loratadine [Loratadine] Allergy (Verified 09/30/18 16:24) Shortness of Breath, Swelling meloxicam [Meloxicam] Allergy (Verified 09/30/18 16:24) Sulfa (Sulfonamide Antibiotics) Allergy (Verified 09/30/18 16:24) Shortness of Breath, Swelling Review of Systems Constitutional: PRESENT: as per HPI, fatigue, weakness. ABSENT: fever(s), headache(s), night sweats Eyes: ABSENT: visual disturbances Ears: ABSENT: hearing changes Nose, Mouth, and Throat: PRESENT: as per HPI Cardiovascular: ABSENT: chest pain, dyspnea on exertion, edema, orthropnea, palpitations Respiratory: PRESENT: as per HPI, cough, dyspnea. ABSENT: hemoptysis, sputum Gastrointestinal: ABSENT: abdominal pain, constipation, diarrhea, hematemesis, hematochezia, nausea, vomiting Genitourinary: ABSENT: dysuria, hematuria Musculoskeletal: ABSENT: joint swelling Integumentary: ABSENT: rash, wounds Neurological: ABSENT: abnormal gait, abnormal speech, confusion, dizziness, focal weakness, syncope Psychiatric: ABSENT: anxiety, depression, homidical ideation, suicidal ideation Endocrine: ABSENT: cold intolerance, heat intolerance, polydipsia, polyuria Hematologic/Lymphatic: ABSENT: easy bleeding, easy bruising Physical Exam Vital Signs: Temp Pulse Resp BP Pulse Ox 97.4 F 89 20 115/66 98 04/25/19 15:57 04/25/19 15:57 04/26/19 01:01 04/26/19 01:01 04/26/19 01:01 Intake & Output 04/24/19 04/25/19 04/26/19 11:59 11:59 11:59 Weight 65.317 kg General appearance: PRESENT: cooperative, mild distress, thin, well-developed, well-nourished Head exam: PRESENT: atraumatic, normocephalic Eye exam: PRESENT: conjunctiva pink, EOMI, PERRLA. ABSENT: scleral icterus Ear exam: PRESENT: normal external ear exam Mouth exam: PRESENT: moist, tongue midline Neck exam: ABSENT: carotid bruit, JVD, lymphadenopathy, thyromegaly Respiratory exam: PRESENT: accessory muscle use, prolonged expiratory phas, retraction, symmetrical, tachypnea. ABSENT: rhonchi Cardiovascular exam: PRESENT: RRR. ABSENT: diastolic murmur, rubs, systolic murmur Pulses: PRESENT: normal dorsalis pedis pul Vascular exam: PRESENT: normal capillary refill GI/Abdominal exam: PRESENT: normal bowel sounds, soft. ABSENT: distended, guarding, mass, organolmegaly, rebound, tenderness Rectal exam: PRESENT: deferred Extremities exam: PRESENT: full ROM. ABSENT: calf tenderness, clubbing, pedal edema Neurological exam: PRESENT: alert, awake, oriented to person, oriented to place, oriented to time, oriented to situation, CN II-XII grossly intact. ABSENT: motor sensory deficit Psychiatric exam: PRESENT: appropriate affect, normal mood. ABSENT: homicidal ideation, suicidal ideation Skin exam: PRESENT: dry, intact, warm. ABSENT: cyanosis, rash Results Laboratory Results: 04/25/19 16:25 04/25/19 16:25 04/25/19 04/25/19 04/25/19 16:25 16:25 22:18 WBC 9.6 RBC 3.33 L Hgb 10.0 L Hct 29.4 L MCV 88 MCH 30.0 MCHC 34.0 RDW 17.4 H Plt Count 179 Seg Neutrophils % 88.9 H Lymphocytes % 7.1 L Monocytes % 3.5 Eosinophils % 0.1 Basophils % 0.4 Absolute Neutrophils 8.6 H Absolute Lymphocytes 0.7 Absolute Monocytes 0.3 Absolute Eosinophils 0.0 Absolute Basophils 0.0 VBG pH Cancelled VBG pCO2 Cancelled VBG HCO3 Cancelled VBG Base Excess Cancelled Sodium 137.7 Potassium 5.6 H Chloride 98 Carbon Dioxide 35 H Anion Gap 5 BUN 11 Creatinine 0.58 Est GFR ( Amer) > 60 Est GFR (Non-Af Amer) > 60 Glucose 87 Calcium 9.0 Total Bilirubin 0.4 AST 16 ALT 17 Alkaline Phosphatase 46 Total Protein 6.3 Albumin 4.0 04/26/19 00:45 WBC RBC Hgb Hct MCV MCH MCHC RDW Plt Count Seg Neutrophils % Lymphocytes % Monocytes % Eosinophils % Basophils % Absolute Neutrophils Absolute Lymphocytes Absolute Monocytes Absolute Eosinophils Absolute Basophils VBG pH 7.36 VBG pCO2 62.9 VBG HCO3 35.1 H VBG Base Excess 7.6 Sodium Potassium Chloride Carbon Dioxide Anion Gap BUN Creatinine Est GFR ( Amer) Est GFR (Non-Af Amer) Glucose Calcium Total Bilirubin AST ALT Alkaline Phosphatase Total Protein Albumin 04/25/19 16:25 CK-MB (CK-2) 0.67 Troponin I < 0.012 Impressions: Chest X-Ray 04/25/19 16:18 IMPRESSION: Severe emphysema. Assessment and Plan - Diagnosis (1) Acute bronchitis Is this a current diagnosis for this admission?: Yes Plan: Telemetry observation, flutter valve, incentive spirometry, supplemental oxygen and prednisone. (2) COPD exacerbation Is this a current diagnosis for this admission?: Yes Plan: As #1, though avoid sedating medications for loss of respiratory drive. (3) Hypoxia Is this a current diagnosis for this admission?: Yes Plan: Secondary to #1 and 2. Supplemental oxygen, BiPAP - Time Time Spent with patient: 25-34 minutes - Inpatient Certification Medical Necessity: Need Close Monitoring Due to Risk of Patient Decompensation
[2019-04-26] MEDS ORDERED: AZITHROMYCIN INJ 500 MG VIAL IV ONE (05:17)
[2019-04-26] MEDS: METHYLPREDNISOLONE INJ 125 MG/2 ML SDV IV SCH ×3 (05:23→21:16)
[2019-04-26] MEDS: HEPARIN SOD (PORCINE) 5,000 UNIT/ML 1 ML SYRINGE SUBCUT SCH ×3 (05:23→21:13)
[2019-04-26] MEDS: ACETAMINOPHEN 325 MG TABLET PO PRN ×2 (05:24→16:16)
[2019-04-26] MEDS: AZITHROMYCIN 500 MG in DEXTROSE 5%-WATER 250 ML IV SCH (05:24)
[2019-04-26] MEDS: IPRATROPIUM/ALBUTEROL 0.5-2.5 MG/3 ML AMPUL NEB SCH ×3 (08:09→19:41)
[2019-04-26] MEDS: LACTULOSE SYRUP 20 GM/30 ML UDCUP PO SCH (09:21)
[2019-04-26] MEDS: FLUTICASONE NASAL SPRAY 50 MCG/SPRY 120 SPRAY/16 GM NASL SCH ×2 (09:22→21:13)
[2019-04-26] MEDS ORDERED: ALBUTEROL SULFATE HFA (90 MCG/PUFF) 200 PUFF/8.5 GM MDI IH PRN (18:03)
[2019-04-26] MEDS: CETIRIZINE 5 MG TABLET PO SCH (21:13)
[2019-04-26] MEDS: NYSTATIN TOPICAL POWDER 15 GM TP SCH (21:14)
[2019-04-26] MEDS: GABAPENTIN 100 MG CAPSULE PO SCH (21:15)
[2019-04-26] MEDS: MONTELUKAST SODIUM 10 MG TABLET PO SCH (21:15)
[2019-04-26] MEDS: ROPINIROLE HCL 1 MG TABLET PO SCH (21:15)
[2019-04-26] MEDS: ZINC OXIDE 20% OINTMENT 28.35 GM TP SCH (21:16)
[2019-04-26] MEDS ORDERED: (PENDING PHARMACY ID) (Ropinirole Hcl [Requip] 1 MG) PO SCH (22:00)
[2019-04-27] MEDS: IPRATROPIUM/ALBUTEROL 0.5-2.5 MG/3 ML AMPUL NEB SCH ×6 (00:09→19:33)
[2019-04-27] MEDS: HEPARIN SOD (PORCINE) 5,000 UNIT/ML 1 ML SYRINGE SUBCUT SCH ×3 (05:02→22:49)
[2019-04-27] MEDS: LEVOTHYROXINE SODIUM 0.025 MG TABLET PO SCH (05:17)
[2019-04-27] MEDS: PANTOPRAZOLE SODIUM 40 MG TABLET.DR PO SCH (05:17)
[2019-04-27] MEDS: METHYLPREDNISOLONE INJ 125 MG/2 ML SDV IV SCH ×3 (05:17→22:46)
[2019-04-27] MEDS: AZITHROMYCIN 500 MG in DEXTROSE 5%-WATER 250 ML IV SCH (05:17)
[2019-04-27 07:16] LABS: HEMATOCRIT 27.5 % (36.0-47.0); HEMOGLOBIN 9.2 g/dL (12.0-15.5); MEAN CORPUSCULAR HEMOGLOBIN 29.4 pg (27.0-33.4); MEAN CORPUSCULAR HGB CONC 33.6 g/dL (32.0-36.0); MEAN CORPUSCULAR VOLUME 88 fl (80-97); PLATELET COUNT 172 10^3/uL (150-450); RED BLOOD COUNT 3.13 10^6/uL (3.72-5.28); RED CELL DISTRIBUTION WIDTH 17.1 % (11.5-14.0); WHITE BLOOD COUNT 6.9 10^3/uL (4.0-10.5)
[2019-04-27 07:44] LABS: ANION GAP 10 (5-19); BLOOD UREA NITROGEN 15 mg/dL (7-20); CARBON DIOXIDE 31 mmol/L (22-30); CHLORIDE 96 mmol/L (98-107); GLUCOSE 146 mg/dL (75-110); POTASSIUM 4.2 mmol/L (3.6-5.0); SODIUM 137.1 mmol/L (137-145)
[2019-04-27 07:59] LABS: ABSOLUTE LYMPHOCYTES# (MANUAL) 0.1 10^3/uL (0.5-4.7); ABSOLUTE MONOCYTES # (MANUAL) 0.1 10^3/uL (0.1-1.4); ANISOCYTOSIS 1+; BAND NEUTROPHILS % (MANUAL) 1 % (3-5); BASOPHILS % (MANUAL) 0 % (0-2); EOSINOPHILS % (MANUAL) 0 % (0-6); LYMPHOCYTES % (MANUAL) 2 % (13-45); MONOCYTES % (MANUAL) 1 % (3-13); OVALOCYTES SLIGHT; PLATELET COMMENT ADEQUATE; POIKILOCYTOSIS SLIGHT; SEGMENTED NEUTROPHILS % (MAN) 96 % (42-78); TOTAL CELLS COUNTED 100
[2019-04-27] MEDS ORDERED: (PENDING PHARMACY ID) (Bisoprolol Fumarate [Zebeta 5 Mg Tablet] 2.5 MG) PO SCH (10:00)
[2019-04-27] MEDS ORDERED: PREDNISONE 20 MG TABLET PO SCH (10:00)
[2019-04-27] MEDS ORDERED: CYANOCOBALAMIN (VITAMIN B-12) INJ 1000 MCG/1 ML VIAL IM SCH (10:00)
[2019-04-27] MEDS ORDERED: (PENDING PHARMACY ID) (Tiotropium Bromide [Spiriva Respimat] 2 PUFF) IH SCH (10:00)
[2019-04-27] MEDS ORDERED: (PENDING PHARMACY ID) (Roflumilast [Daliresp 500 Mcg Tablet] 500 MCG) PO SCH (10:00)
[2019-04-27] MEDS: DOCUSATE SODIUM 100 MG CAPSULE PO SCH ×2 (10:42→17:21)
[2019-04-27] MEDS: LACTULOSE SYRUP 20 GM/30 ML UDCUP PO SCH (10:42)
[2019-04-27] MEDS: METOPROLOL SUCCINATE 25 MG TAB.SR.24H PO SCH (10:43)
[2019-04-27] MEDS: HYDROCHLOROTHIAZIDE 25 MG TABLET PO SCH (10:43)
[2019-04-27] MEDS: ISOSORBIDE MONONITRATE 30 MG TAB.ER.24H PO SCH (10:43)
[2019-04-27] MEDS: LISINOPRIL 5 MG TABLET PO SCH (10:43)
[2019-04-27] MEDS: FLUTICASONE NASAL SPRAY 50 MCG/SPRY 120 SPRAY/16 GM NASL SCH ×2 (10:44→22:44)
[2019-04-27] MEDS: ATENOLOL 50 MG TABLET PO SCH (10:44)
[2019-04-27] MEDS: ROFLUMILAST 500 MCG TABLET PO SCH (10:44)
[2019-04-27] MEDS: TIOTROPIUM BROMIDE DPI 5 CAP/KIT (18 MCG/CAP) IH SCH (10:45)
[2019-04-27] MEDS: FLUTICASONE/VILANTEROL 200-25 MCG/DOSE IH SCH (10:46)
[2019-04-27] MEDS: ZINC OXIDE 20% OINTMENT 28.35 GM TP SCH ×4 (10:58→22:50)
[2019-04-27] MEDS: NYSTATIN TOPICAL POWDER 15 GM TP SCH ×4 (10:59→22:45)
--- NOTE | 2019-04-27 12:32 | PDOC PROGRESS REPORT ---
Subjective Progress Note for:: 04/27/19 Subjective:: This is 58 years old female patient with past medical history of hypothyroidism, congestive heart failure diastolic, COPD, migraine, type 2 diabetes mellitus, end-stage lung disease due to COPD on on trilogy, presented with chief complaint of shortness of breath. Patient has been managed as a case of COPD exacerbation accordingly. Morning patient seen and examined while she is seen at the bedside. She is awake alert oriented. She reports this she fee ls much better today she does not have any fever, chest pain, nausea or vomiting. Reason For Visit: COPD EXACERBATION,ACUTE BRONCHITIS HYPERKALEMIA Physical Exam Vital Signs: Temp Pulse Resp BP Pulse Ox 98.0 F 91 18 109/48 L 97 04/27/19 03:58 04/27/19 08:23 04/27/19 08:23 04/27/19 03:58 04/27/19 08:23 Intake & Output 04/26/19 04/27/19 04/28/19 06:59 06:59 06:59 Intake Total 490 1469 Output Total 0 Balance 490 1469 Weight 65.2 kg 66.1 kg General appearance: PRESENT: no acute distress Eye exam: PRESENT: conjunctiva pink Neck exam: ABSENT: carotid bruit, JVD, lymphadenopathy, thyromegaly Respiratory exam: PRESENT: clear to auscultation lashell. ABSENT: rales, rhonchi, wheezes Cardiovascular exam: PRESENT: RRR. ABSENT: diastolic murmur, rubs, systolic murmur GI/Abdominal exam: PRESENT: normal bowel sounds, soft. ABSENT: distended, guarding, mass, organolmegaly, rebound, tenderness Neurological exam: PRESENT: alert, awake, oriented to person, oriented to place, oriented to time, oriented to situation Results Laboratory Results: 04/27/19 06:10 04/27/19 06:10 04/27/19 04/27/19 06:10 06:10 WBC 6.9 RBC 3.13 L Hgb 9.2 L Hct 27.5 L MCV 88 MCH 29.4 MCHC 33.6 RDW 17.1 H Plt Count 172 Seg Neutrophils % Not Reportable Lymphocytes % Not Reportable Monocytes % Not Reportable Eosinophils % Not Reportable Basophils % Not Reportable Absolute Neutrophils Not Reportable Absolute Lymphocytes Not Reportable Absolute Monocytes Not Reportable Absolute Eosinophils Not Reportable Absolute Basophils Not Reportable Sodium 137.1 Potassium 4.2 Chloride 96 L Carbon Dioxide 31 H Anion Gap 10 BUN 15 Creatinine 0.46 L Est GFR ( Amer) > 60 Est GFR (Non-Af Amer) > 60 Glucose 146 H Calcium 9.0 04/25/19 16:25 CK-MB (CK-2) 0.67 Troponin I < 0.012 Impressions: Chest X-Ray 04/25/19 16:18 IMPRESSION: Severe emphysema. Assessment and Plan - Diagnosis (1) COPD exacerbation Is this a current diagnosis for this admission?: Yes Plan: Continue current regimen. Her Solu-Medrol taper from 125 every 8 hours to 80 mg every 8 hours. (2) Acute bronchitis Qualifiers: Bronchitis organism: unspecified organism Qualified Code(s): J20.9 - Acute bronchitis, unspecified Is this a current diagnosis for this admission?: Yes Plan: Continue current regimen (3) Hypothyroidism Is this a current diagnosis for this admission?: Yes Plan: Continue Synthroid (4) Chronic diastolic CHF (congestive heart failure) Is this a current diagnosis for this admission?: Yes Plan: Compensated (5) Type 2 diabetes mellitus Is this a current diagnosis for this admission?: Yes Plan: Continue current regimen (6) Hypertension Qualifiers: Hypertension type: essential hypertension Qualified Code(s): I10 - Essential (primary) hypertension Is this a current diagnosis for this admission?: Yes Plan: Continue home medication (7) Hyperlipidemia Qualifiers: Hyperlipidemia type: unspecified Qualified Code(s): E78.5 - Hyperlipidemia, unspecified Is this a current diagnosis for this admission?: Yes Plan: Continue home medication.
[2019-04-27] MEDS: ACETAMINOPHEN 325 MG TABLET PO PRN ×2 (13:22→17:23)
[2019-04-27] MEDS: CETIRIZINE 5 MG TABLET PO SCH (17:24)
[2019-04-27] MEDS ORDERED: ONDANSETRON HCL INJ/PF 4 MG/2 ML SDV IV PRN (17:33)
[2019-04-27] MEDS: MONTELUKAST SODIUM 10 MG TABLET PO SCH (22:46)
[2019-04-27] MEDS: GABAPENTIN 100 MG CAPSULE PO SCH (22:46)
[2019-04-27] MEDS ORDERED: ROPINIROLE HCL 1 MG TABLET ONE (22:57)
[2019-04-27] MEDS: ROPINIROLE HCL 1 MG TABLET PO SCH (23:01)
[2019-04-28] MEDS: IPRATROPIUM/ALBUTEROL 0.5-2.5 MG/3 ML AMPUL NEB SCH ×7 (00:02→23:44)
[2019-04-28] MEDS: AZITHROMYCIN 500 MG in DEXTROSE 5%-WATER 250 ML IV SCH (05:50)
[2019-04-28] MEDS: METHYLPREDNISOLONE INJ 125 MG/2 ML SDV IV SCH ×2 (05:50→14:17)
[2019-04-28] MEDS: LEVOTHYROXINE SODIUM 0.025 MG TABLET PO SCH (05:51)
[2019-04-28] MEDS: HEPARIN SOD (PORCINE) 5,000 UNIT/ML 1 ML SYRINGE SUBCUT SCH ×3 (05:51→21:50)
[2019-04-28] MEDS: PANTOPRAZOLE SODIUM 40 MG TABLET.DR PO SCH (05:51)
[2019-04-28] MEDS: ACETAMINOPHEN 325 MG TABLET PO PRN ×2 (08:11→14:17)
[2019-04-28] MEDS: DOCUSATE SODIUM 100 MG CAPSULE PO SCH ×2 (09:12→17:35)
[2019-04-28] MEDS: LACTULOSE SYRUP 20 GM/30 ML UDCUP PO SCH (09:12)
[2019-04-28] MEDS: HYDROCHLOROTHIAZIDE 25 MG TABLET PO SCH (09:15)
[2019-04-28] MEDS: LISINOPRIL 5 MG TABLET PO SCH (09:16)
[2019-04-28] MEDS: FLUTICASONE NASAL SPRAY 50 MCG/SPRY 120 SPRAY/16 GM NASL SCH ×2 (09:16→21:46)
[2019-04-28] MEDS: ISOSORBIDE MONONITRATE 30 MG TAB.ER.24H PO SCH (09:16)
[2019-04-28] MEDS: METOPROLOL SUCCINATE 25 MG TAB.SR.24H PO SCH (09:16)
[2019-04-28] MEDS: ATENOLOL 50 MG TABLET PO SCH (09:16)
[2019-04-28] MEDS: FLUTICASONE/VILANTEROL 200-25 MCG/DOSE IH SCH (09:20)
[2019-04-28] MEDS: TIOTROPIUM BROMIDE DPI 5 CAP/KIT (18 MCG/CAP) IH SCH (09:20)
[2019-04-28] MEDS: NYSTATIN TOPICAL POWDER 15 GM TP SCH ×4 (09:22→21:47)
[2019-04-28] MEDS: ZINC OXIDE 20% OINTMENT 28.35 GM TP SCH ×4 (09:23→21:46)
[2019-04-28] MEDS: ROFLUMILAST 500 MCG TABLET PO SCH (11:54)
--- NOTE | 2019-04-28 15:38 | PDOC PROGRESS REPORT ---
Subjective Progress Note for:: 04/28/19 Subjective:: patient reports improvements in breathing. she is not wheezing. she is using bipap some of the day. she uses trilogy at home. currently only on 3-4L. denies systemic signs of infxn. Reason For Visit: EXACERBATION COPD, ACUTE BRONCHITIS Physical Exam Vital Signs: Temp Pulse Resp BP Pulse Ox 97.9 F 79 23 H 110/51 L 99 04/28/19 11:44 04/28/19 11:44 04/28/19 11:44 04/28/19 11:44 04/28/19 11:44 Intake & Output 04/27/19 04/28/19 04/29/19 06:59 06:59 06:59 Intake Total 1469 1056 Balance 1469 1056 Weight 66.1 kg 67.9 kg General appearance: PRESENT: no acute distress, well-developed, well-nourished Head exam: PRESENT: atraumatic, normocephalic Eye exam: PRESENT: conjunctiva pink, EOMI, PERRLA. ABSENT: scleral icterus Ear exam: PRESENT: normal external ear exam Mouth exam: PRESENT: moist, tongue midline Neck exam: ABSENT: carotid bruit, JVD, lymphadenopathy, thyromegaly Respiratory exam: PRESENT: clear to auscultation lashell. ABSENT: rales, rhonchi, wheezes Cardiovascular exam: PRESENT: RRR. ABSENT: diastolic murmur, rubs, systolic murmur Pulses: PRESENT: normal dorsalis pedis pul Vascular exam: PRESENT: normal capillary refill GI/Abdominal exam: PRESENT: normal bowel sounds, soft. ABSENT: distended, guarding, mass, organolmegaly, rebound, tenderness Rectal exam: PRESENT: deferred Extremities exam: PRESENT: full ROM. ABSENT: calf tenderness, clubbing, pedal edema Neurological exam: PRESENT: alert, awake, oriented to person, oriented to place, oriented to time, oriented to situation, CN II-XII grossly intact. ABSENT: motor sensory deficit Psychiatric exam: PRESENT: appropriate affect, normal mood. ABSENT: homicidal ideation, suicidal ideation Skin exam: PRESENT: dry, intact, warm. ABSENT: cyanosis, rash Results Laboratory Results: 04/27/19 06:10 04/27/19 06:10 04/25/19 16:25 CK-MB (CK-2) 0.67 Troponin I < 0.012 Impressions: Chest X-Ray 04/25/19 16:18 IMPRESSION: Severe emphysema. Assessment and Plan - Diagnosis (1) Diverticular disease of esophagus Is this a current diagnosis for this admission?: Yes Plan: per patient. previously dx. many times source of lung infection (2) Acute bronchitis Qualifiers: Bronchitis organism: unspecified organism Qualified Code(s): J20.9 - Acute bronchitis, unspecified Is this a current diagnosis for this admission?: Yes Plan: Continue current regimen. improving (3) COPD exacerbation Is this a current diagnosis for this admission?: Yes Plan: improving. taper steroids. continue supplemental treatment -lower iv solumedrol to 40mg q8h (4) Anemia Qualifiers: Other causes of anemia: other cause, not classified Is this a current diagnosis for this admission?: Yes Plan: stable, chronic, no signs of bleeding (5) DNI (do not intubate) Is this a current diagnosis for this admission?: No Plan: chart has full code (6) Oxygen dependent Is this a current diagnosis for this admission?: Yes Plan: 3-4L at baseline - Time Time Spent with patient: 15-24 minutes Medications reviewed and adjusted accordingly: Yes - Inpatient Certification Based on my medical assessment, after consideration of the patient's comorbidities, presenting symptoms, or acuity I expect that the services needed warrant INPATIENT care.: Yes I certify that my determination is in accordance with my understanding of Medicare's requirements for reasonable and necessary INPATIENT services [42 CFR 412.3e].: Yes - Plan Summary Plan Summary: wean off steroids, and discharge.
[2019-04-28] MEDS: CETIRIZINE 5 MG TABLET PO SCH (17:40)
[2019-04-28] MEDS ORDERED: PREDNISONE 10 MG TABLET PO SCH (18:00)
[2019-04-28] MEDS: ROPINIROLE HCL 1 MG TABLET PO SCH (21:45)
[2019-04-28] MEDS: MONTELUKAST SODIUM 10 MG TABLET PO SCH (21:45)
[2019-04-28] MEDS: GABAPENTIN 100 MG CAPSULE PO SCH (21:45)
[2019-04-28] MEDS: METHYLPREDNISOLONE INJ 40 MG/1 ML SDV IV SCH (21:45)
[2019-04-28] MEDS ORDERED: METHYLPREDNISOLONE INJ 125 MG/2 ML SDV IV SCH (22:00)
[2019-04-29] MEDS: IPRATROPIUM/ALBUTEROL 0.5-2.5 MG/3 ML AMPUL NEB SCH ×5 (04:02→20:05)
[2019-04-29] MEDS: METHYLPREDNISOLONE INJ 40 MG/1 ML SDV IV SCH ×3 (06:08→22:55)
[2019-04-29] MEDS: LEVOTHYROXINE SODIUM 0.025 MG TABLET PO SCH (06:08)
[2019-04-29] MEDS: PANTOPRAZOLE SODIUM 40 MG TABLET.DR PO SCH (06:08)
[2019-04-29] MEDS: HEPARIN SOD (PORCINE) 5,000 UNIT/ML 1 ML SYRINGE SUBCUT SCH ×3 (06:08→22:59)
[2019-04-29] MEDS: AZITHROMYCIN 500 MG in DEXTROSE 5%-WATER 250 ML IV SCH (06:09)
[2019-04-29 07:16] LABS: ABSOLUTE LYMPHOCYTES (AUTO) 0.5 10^3/uL (0.5-4.7); ABSOLUTE MONOCYTES (AUTO) 0.3 10^3/uL (0.1-1.4); ABSOLUTE NEUT (AUTO) 6.6 10^3/uL (1.7-8.2); HEMATOCRIT 26.3 % (36.0-47.0); LYMPHOCYTES % (AUTO) 6.6 % (13-45); MEAN CORPUSCULAR HEMOGLOBIN 29.7 pg (27.0-33.4); MEAN CORPUSCULAR HGB CONC 34.1 g/dL (32.0-36.0); MEAN CORPUSCULAR VOLUME 87 fl (80-97); MONOCYTES % (AUTO) 4.1 % (3-13); PLATELET COUNT 170 10^3/uL (150-450); RED BLOOD COUNT 3.02 10^6/uL (3.72-5.28); RED CELL DISTRIBUTION WIDTH 17.5 % (11.5-14.0); SEGMENTED NEUTROPHILS % (AUTO) 89.3 % (42-78); TOTAL CELLS COUNTED % (AUTO) 100 %; WHITE BLOOD COUNT 7.4 10^3/uL (4.0-10.5)
[2019-04-29 07:36] LABS: ANION GAP 7 (5-19); BLOOD UREA NITROGEN 17 mg/dL (7-20); CARBON DIOXIDE 35 mmol/L (22-30); CHLORIDE 95 mmol/L (98-107); GLUCOSE 120 mg/dL (75-110); POTASSIUM 3.7 mmol/L (3.6-5.0)
[2019-04-29] MEDS: FLUTICASONE NASAL SPRAY 50 MCG/SPRY 120 SPRAY/16 GM NASL SCH ×2 (10:03→22:55)
[2019-04-29] MEDS: TIOTROPIUM BROMIDE DPI 5 CAP/KIT (18 MCG/CAP) IH SCH (10:05)
[2019-04-29] MEDS: FLUTICASONE/VILANTEROL 200-25 MCG/DOSE IH SCH (10:06)
[2019-04-29] MEDS: METOPROLOL SUCCINATE 25 MG TAB.SR.24H PO SCH (10:06)
[2019-04-29] MEDS: LACTULOSE SYRUP 20 GM/30 ML UDCUP PO SCH (10:06)
[2019-04-29] MEDS: NYSTATIN TOPICAL POWDER 15 GM TP SCH ×4 (10:07→22:57)
[2019-04-29] MEDS: LISINOPRIL 5 MG TABLET PO SCH (10:08)
[2019-04-29] MEDS: ZINC OXIDE 20% OINTMENT 28.35 GM TP SCH ×4 (10:08→22:58)
[2019-04-29] MEDS: ROFLUMILAST 500 MCG TABLET PO SCH (10:09)
[2019-04-29] MEDS: DOCUSATE SODIUM 100 MG CAPSULE PO SCH ×2 (10:09→18:32)
[2019-04-29] MEDS: HYDROCHLOROTHIAZIDE 25 MG TABLET PO SCH (10:09)
[2019-04-29] MEDS: ATENOLOL 50 MG TABLET PO SCH (10:14)
[2019-04-29] MEDS: ISOSORBIDE MONONITRATE 30 MG TAB.ER.24H PO SCH (10:15)
[2019-04-29] MEDS: ACETAMINOPHEN 325 MG TABLET PO PRN ×2 (11:44→18:39)
[2019-04-29] MEDS ORDERED: ALPRAZOLAM 0.25 MG TABLET PO PRN (15:46)
--- NOTE | 2019-04-29 16:08 | PDOC PROGRESS REPORT ---
Subjective Progress Note for:: 04/29/19 Subjective:: breathing is improving. she seems anxious about breathing and is leading to some co2 retention. no home meds for anxiety. no systemic signs of infxn Reason For Visit: EXACERBATION COPD, ACUTE BRONCHITIS Physical Exam Vital Signs: Temp Pulse Resp BP Pulse Ox 97.6 F 82 16 125/72 97 04/29/19 11:47 04/29/19 15:30 04/29/19 15:30 04/29/19 11:47 04/29/19 15:30 Intake & Output 04/28/19 04/29/19 04/30/19 06:59 06:59 06:59 Intake Total 1306 1569 680 Balance 1306 1569 680 Weight 67.9 kg 68.2 kg General appearance: PRESENT: no acute distress, well-developed, well-nourished Head exam: PRESENT: atraumatic, normocephalic Eye exam: PRESENT: conjunctiva pink, EOMI, PERRLA. ABSENT: scleral icterus Ear exam: PRESENT: normal external ear exam Mouth exam: PRESENT: moist, tongue midline Neck exam: ABSENT: carotid bruit, JVD, lymphadenopathy, thyromegaly Respiratory exam: PRESENT: decreased breath sounds, prolonged expiratory phas, unlabored. ABSENT: rales, rhonchi, wheezes Cardiovascular exam: PRESENT: RRR. ABSENT: diastolic murmur, rubs, systolic murmur Pulses: PRESENT: normal dorsalis pedis pul Vascular exam: PRESENT: normal capillary refill GI/Abdominal exam: PRESENT: normal bowel sounds, soft. ABSENT: distended, guarding, mass, organolmegaly, rebound, tenderness Rectal exam: PRESENT: deferred Extremities exam: PRESENT: full ROM. ABSENT: calf tenderness, clubbing, pedal edema Neurological exam: PRESENT: alert, awake, oriented to person, oriented to place, oriented to time, oriented to situation, CN II-XII grossly intact. ABSENT: motor sensory deficit Psychiatric exam: PRESENT: appropriate affect, normal mood. ABSENT: homicidal ideation, suicidal ideation Skin exam: PRESENT: dry, intact, warm. ABSENT: cyanosis, rash Results Laboratory Results: 04/29/19 06:52 04/29/19 06:52 04/29/19 04/29/19 06:52 06:52 WBC 7.4 RBC 3.02 L Hgb 9.0 L Hct 26.3 L MCV 87 MCH 29.7 MCHC 34.1 RDW 17.5 H Plt Count 170 Seg Neutrophils % 89.3 H Lymphocytes % 6.6 L Monocytes % 4.1 Eosinophils % 0.0 Basophils % 0.0 Absolute Neutrophils 6.6 Absolute Lymphocytes 0.5 Absolute Monocytes 0.3 Absolute Eosinophils 0.0 Absolute Basophils 0.0 Sodium 137.0 Potassium 3.7 Chloride 95 L Carbon Dioxide 35 H Anion Gap 7 BUN 17 Creatinine 0.58 Est GFR ( Amer) > 60 Est GFR (Non-Af Amer) > 60 Glucose 120 H Calcium 9.0 04/25/19 16:25 CK-MB (CK-2) 0.67 Troponin I < 0.012 Impressions: Chest X-Ray 04/25/19 16:18 IMPRESSION: Severe emphysema. Assessment and Plan - Diagnosis (1) Diverticular disease of esophagus Is this a current diagnosis for this admission?: Yes Plan: per patient. previously dx. many times thought to be source of lung infection (2) Acute bronchitis Qualifiers: Bronchitis organism: unspecified organism Qualified Code(s): J20.9 - Acute bronchitis, unspecified Is this a current diagnosis for this admission?: Yes Plan: Continue current regimen. will have her complete course of azithro. improving (3) COPD exacerbation Is this a current diagnosis for this admission?: Yes (4) Anemia Qualifiers: Other causes of anemia: other cause, not classified Is this a current diagnosis for this admission?: Yes Plan: stable, chronic, no signs of bleeding (5) DNI (do not intubate) Is this a current diagnosis for this admission?: No Plan: chart has full code (6) Oxygen dependent Is this a current diagnosis for this admission?: Yes Plan: 3-4L at baseline (7) Anxiety Is this a current diagnosis for this admission?: Yes Plan: LIZZIE- start low dose xanax 0.125 tid for anxiety and lexapro 5 daily. would cons ider leaving this pt on low dose as time goes one her anxiety will likely worsen and distress will lead to worse breathing habits. also the very mild mood boost may help her cope to w/disease worsening. should see o/p psych - Time Time Spent with patient: 15-24 minutes Medications reviewed and adjusted accordingly: Yes Anticipated discharge: Home - Inpatient Certification Based on my medical assessment, after consideration of the patient's comorbidities, presenting symptoms, or acuity I expect that the services needed warrant INPATIENT care.: Yes I certify that my determination is in accordance with my understanding of Medicare's requirements for reasonable and necessary INPATIENT services [42 CFR 412.3e].: Yes
[2019-04-29] MEDS: CETIRIZINE 5 MG TABLET PO SCH (18:32)
[2019-04-29] MEDS: MONTELUKAST SODIUM 10 MG TABLET PO SCH (22:55)
[2019-04-29] MEDS: GABAPENTIN 100 MG CAPSULE PO SCH (22:55)
[2019-04-29] MEDS: ROPINIROLE HCL 1 MG TABLET PO SCH (22:55)
[2019-04-30] MEDS: IPRATROPIUM/ALBUTEROL 0.5-2.5 MG/3 ML AMPUL NEB SCH ×6 (00:12→19:44)
[2019-04-30 05:50] LABS: ABSOLUTE LYMPHOCYTES (AUTO) 0.5 10^3/uL (0.5-4.7); ABSOLUTE MONOCYTES (AUTO) 0.3 10^3/uL (0.1-1.4); BASOPHILS % (AUTO) 0.1 % (0-2); HEMATOCRIT 27.4 % (36.0-47.0); HEMOGLOBIN 9.2 g/dL (12.0-15.5); LYMPHOCYTES % (AUTO) 6.5 % (13-45); MEAN CORPUSCULAR HEMOGLOBIN 29.3 pg (27.0-33.4); MEAN CORPUSCULAR HGB CONC 33.7 g/dL (32.0-36.0); MEAN CORPUSCULAR VOLUME 87 fl (80-97); MONOCYTES % (AUTO) 3.3 % (3-13); PLATELET COUNT 186 10^3/uL (150-450); RED BLOOD COUNT 3.15 10^6/uL (3.72-5.28); RED CELL DISTRIBUTION WIDTH 17.6 % (11.5-14.0); SEGMENTED NEUTROPHILS % (AUTO) 90.1 % (42-78); TOTAL CELLS COUNTED % (AUTO) 100 %; WHITE BLOOD COUNT 7.8 10^3/uL (4.0-10.5)
[2019-04-30] MEDS: AZITHROMYCIN 500 MG in DEXTROSE 5%-WATER 250 ML IV SCH (05:51)
[2019-04-30] MEDS: HEPARIN SOD (PORCINE) 5,000 UNIT/ML 1 ML SYRINGE SUBCUT SCH ×3 (05:52→22:13)
[2019-04-30] MEDS: LEVOTHYROXINE SODIUM 0.025 MG TABLET PO SCH (05:53)
[2019-04-30] MEDS: PANTOPRAZOLE SODIUM 40 MG TABLET.DR PO SCH (05:53)
[2019-04-30] MEDS: ACETAMINOPHEN 325 MG TABLET PO PRN ×2 (05:53→12:22)
[2019-04-30] MEDS: METHYLPREDNISOLONE INJ 40 MG/1 ML SDV IV SCH ×3 (05:54→22:12)
[2019-04-30 06:10] LABS: ALANINE AMINOTRANSFERASE 16 U/L (9-52); ALBUMIN 3.7 g/dL (3.5-5.0); ALKALINE PHOSPHATASE 37 U/L (38-126); ANION GAP 7 (5-19); ASPARTATE AMINO TRANSFERASE 9 U/L (14-36); BILIRUBIN,DIRECT 0.2 mg/dL (0.0-0.4); BILIRUBIN,TOTAL 0.3 mg/dL (0.2-1.3); BLOOD UREA NITROGEN 18 mg/dL (7-20); CALCIUM 8.7 mg/dL (8.4-10.2); CARBON DIOXIDE 37 mmol/L (22-30); CHLORIDE 93 mmol/L (98-107); GLUCOSE 116 mg/dL (75-110); POTASSIUM 4.1 mmol/L (3.6-5.0); SODIUM 137.4 mmol/L (137-145); TOTAL PROTEIN 5.5 g/dL (6.3-8.2)
[2019-04-30] MEDS: ESCITALOPRAM OXALATE 10 MG TABLET PO SCH (10:09)
[2019-04-30] MEDS: DOCUSATE SODIUM 100 MG CAPSULE PO SCH ×2 (10:09→17:10)
[2019-04-30] MEDS: ATENOLOL 50 MG TABLET PO SCH (10:09)
[2019-04-30] MEDS: LACTULOSE SYRUP 20 GM/30 ML UDCUP PO SCH (10:09)
[2019-04-30] MEDS: METOPROLOL SUCCINATE 25 MG TAB.SR.24H PO SCH (10:09)
[2019-04-30] MEDS: ISOSORBIDE MONONITRATE 30 MG TAB.ER.24H PO SCH (10:10)
[2019-04-30] MEDS: HYDROCHLOROTHIAZIDE 25 MG TABLET PO SCH (10:11)
[2019-04-30] MEDS: FLUTICASONE/VILANTEROL 200-25 MCG/DOSE IH SCH (10:11)
[2019-04-30] MEDS: FLUTICASONE NASAL SPRAY 50 MCG/SPRY 120 SPRAY/16 GM NASL SCH ×2 (10:11→22:12)
[2019-04-30] MEDS: LISINOPRIL 5 MG TABLET PO SCH (10:11)
[2019-04-30] MEDS: ROFLUMILAST 500 MCG TABLET PO SCH (10:12)
[2019-04-30] MEDS: TIOTROPIUM BROMIDE DPI 5 CAP/KIT (18 MCG/CAP) IH SCH (10:13)
[2019-04-30] MEDS: NYSTATIN TOPICAL POWDER 15 GM TP SCH ×4 (10:14→22:16)
[2019-04-30] MEDS: ZINC OXIDE 20% OINTMENT 28.35 GM TP SCH ×4 (10:15→22:15)
--- NOTE | 2019-04-30 15:46 | PDOC PROGRESS REPORT ---
Subjective Progress Note for:: 04/30/19 Subjective:: Patient feels she is about the same as yesterday. Not improved since yesterday. Chest is still tight. She is having to use her BiPAP in the afternoon. She does not feel worse. She does tell me that it takes her quite a while to recover from COPD exacerbations. No sign of a worsening infection and a azithromycin was completed today. Chest pain. No nausea vomiting. Urinating well. No abdominal pain. Eating without difficulty. No fevers or chills. No sputum production. Reason For Visit: EXACERBATION COPD, ACUTE BRONCHITIS Physical Exam Vital Signs: Temp Pulse Resp BP Pulse Ox 97.5 F 98 20 128/75 H 96 04/30/19 11:13 04/30/19 11:13 04/30/19 11:13 04/30/19 11:13 04/30/19 11:13 Intake & Output 04/29/19 04/30/19 05/01/19 06:59 06:59 06:59 Intake Total 1569 1630 Balance 1569 1630 Weight 68.2 kg 69.1 kg General appearance: PRESENT: no acute distress, cooperative Head exam: PRESENT: atraumatic, normocephalic, other - barkley facies Eye exam: PRESENT: EOMI Ear exam: PRESENT: normal external ear exam Mouth exam: PRESENT: moist Neck exam: ABSENT: lymphadenopathy Respiratory exam: PRESENT: prolonged expiratory phas, other - Decreased to very poor air movement bilaterally. ABSENT: rales, unlabored, wheezes Cardiovascular exam: PRESENT: tachycardia Pulses: PRESENT: normal radial pulses GI/Abdominal exam: PRESENT: normal bowel sounds, soft. ABSENT: distended, firm, guarding, tenderness Rectal exam: PRESENT: deferred Extremities exam: ABSENT: calf tenderness Musculoskeletal exam: PRESENT: ambulatory Neurological exam: PRESENT: alert, awake, oriented to person, oriented to place, oriented to situation, CN II-XII grossly intact Psychiatric exam: PRESENT: appropriate affect. ABSENT: anxious Skin exam: PRESENT: dry, intact, warm Results Laboratory Results: 04/30/19 05:22 04/30/19 05:22 04/30/19 04/30/19 05:22 05:22 WBC 7.8 RBC 3.15 L Hgb 9.2 L Hct 27.4 L MCV 87 MCH 29.3 MCHC 33.7 RDW 17.6 H Plt Count 186 Seg Neutrophils % 90.1 H Lymphocytes % 6.5 L Monocytes % 3.3 Eosinophils % 0.0 Basophils % 0.1 Absolute Neutrophils 7.0 Absolute Lymphocytes 0.5 Absolute Monocytes 0.3 Absolute Eosinophils 0.0 Absolute Basophils 0.0 Sodium 137.4 Potassium 4.1 Chloride 93 L Carbon Dioxide 37 H Anion Gap 7 BUN 18 Creatinine 0.53 Est GFR ( Amer) > 60 Est GFR (Non-Af Amer) > 60 Glucose 116 H Calcium 8.7 Total Bilirubin 0.3 AST 9 L ALT 16 Alkaline Phosphatase 37 L Total Protein 5.5 L Albumin 3.7 04/25/19 16:25 CK-MB (CK-2) 0.67 Troponin I < 0.012 Impressions: Chest X-Ray 04/25/19 16:18 IMPRESSION: Severe emphysema. Assessment and Plan - Diagnosis (1) Dyspnea Qualifiers: Dyspnea type: other forms of dyspnea Qualified Code(s): R06.09 - Other forms of dyspnea Is this a current diagnosis for this admission?: Yes Plan: Pt has severe dyspnea related to end stage COPD. She uses oral morphine at home and its prescribed 2.5 mg po q 4 hrs prn dyspnea, she uses only 1.25 mg at a time and so that is what I have ordered. (2) Acute bronchitis Qualifiers: Bronchitis organism: unspecified organism Qualified Code(s): J20.9 - Acute bronchitis, unspecified Is this a current diagnosis for this admission?: Yes Plan: completed 6 days of azithromycin and so this ABX DCed today. (3) COPD exacerbation Is this a current diagnosis for this admission?: Yes Plan: about the same today as yesterday, using bipap this afternoon. WIll cont all brething treatments and bipap, will follow ABG. Have added oral morphine for dyspnea. (4) Restless legs syndrome Is this a current diagnosis for this admission?: Yes Plan: stable, continue ropinerole - Time Time Spent with patient: 25-34 minutes Medications reviewed and adjusted accordingly: Yes - Inpatient Certification Based on my medical assessment, after consideration of the patient's comorbidities, presenting symptoms, or acuity I expect that the services needed warrant INPATIENT care.: Yes I certify that my determination is in accordance with my understanding of Medicare's requirements for reasonable and necessary INPATIENT services [42 CFR 412.3e].: Yes Medical Necessity: Significant Comorbidiites Make Outpatient Treatment Too Risky, Need Close Monitoring Due to Risk of Patient Decompensation
[2019-04-30] MEDS ORDERED: MORPHINE SULFATE 10 MG/5 ML ORAL SOLUTION UDCUP PO PRN (16:15)
[2019-04-30 16:30] LABS: ARTERIAL BLOOD FIO2 4L; ARTERIAL BLOOD H2CO3 1.63 mmol/L (1.05-1.35); ARTERIAL BLOOD HCO3 39.3 mmol/L (20-24); ARTERIAL BLOOD O2 SATURATION 78.2 % (94-98); ARTERIAL BLOOD PH 7.48 (7.35-7.45)
[2019-04-30 16:32] LABS: ARTERIAL BLOOD PO2 40.5 mmHg (80-100)
[2019-04-30] MEDS: CETIRIZINE 5 MG TABLET PO SCH (17:10)
[2019-04-30 20:03] LABS: ARTERIAL BLOOD BASE EXCESS 11.6 mmol/L; ARTERIAL BLOOD H2CO3 1.62 mmol/L (1.05-1.35); ARTERIAL BLOOD HCO3 37.1 mmol/L (20-24); ARTERIAL BLOOD O2 SATURATION 96.3 % (94-98); ARTERIAL BLOOD PCO2 53.8 mmHg (35-45); ARTERIAL BLOOD PH 7.46 (7.35-7.45); ARTERIAL BLOOD TOTAL CO2 38.8 mmol/L (21-25)
[2019-04-30 20:09] LABS: ARTERIAL BLOOD FIO2 30%
[2019-04-30] MEDS: ROPINIROLE HCL 1 MG TABLET PO SCH (22:12)
[2019-04-30] MEDS: MONTELUKAST SODIUM 10 MG TABLET PO SCH (22:13)
[2019-04-30] MEDS: GABAPENTIN 100 MG CAPSULE PO SCH (22:13)
[2019-05-01] MEDS: IPRATROPIUM/ALBUTEROL 0.5-2.5 MG/3 ML AMPUL NEB SCH ×7 (00:53→23:48)
[2019-05-01] MEDS: METHYLPREDNISOLONE INJ 40 MG/1 ML SDV IV SCH ×3 (05:54→21:28)
[2019-05-01] MEDS: PANTOPRAZOLE SODIUM 40 MG TABLET.DR PO SCH (05:54)
[2019-05-01] MEDS: LEVOTHYROXINE SODIUM 0.025 MG TABLET PO SCH (05:54)
[2019-05-01] MEDS: HEPARIN SOD (PORCINE) 5,000 UNIT/ML 1 ML SYRINGE SUBCUT SCH ×3 (05:55→21:29)
[2019-05-01 06:56] LABS: HEMATOCRIT 27.5 % (36.0-47.0); HEMOGLOBIN 9.4 g/dL (12.0-15.5); MEAN CORPUSCULAR HEMOGLOBIN 29.7 pg (27.0-33.4); MEAN CORPUSCULAR HGB CONC 34.2 g/dL (32.0-36.0); MEAN CORPUSCULAR VOLUME 87 fl (80-97); PLATELET COUNT 204 10^3/uL (150-450); RED BLOOD COUNT 3.16 10^6/uL (3.72-5.28); RED CELL DISTRIBUTION WIDTH 17.7 % (11.5-14.0); WHITE BLOOD COUNT 7.9 10^3/uL (4.0-10.5)
[2019-05-01 07:21] LABS: ANION GAP 7 (5-19); BLOOD UREA NITROGEN 21 mg/dL (7-20); CALCIUM 8.9 mg/dL (8.4-10.2); CARBON DIOXIDE 37 mmol/L (22-30); CHLORIDE 91 mmol/L (98-107); GLUCOSE 116 mg/dL (75-110); POTASSIUM 4.5 mmol/L (3.6-5.0); SODIUM 134.9 mmol/L (137-145)
[2019-05-01] MEDS: IBUPROFEN 800 MG TABLET PO PRN (08:36)
[2019-05-01] MEDS ORDERED: FLUCONAZOLE 100 MG TABLET PO ONE (09:09)
[2019-05-01] MEDS: ZINC OXIDE 20% OINTMENT 28.35 GM TP SCH ×4 (09:27→21:29)
[2019-05-01] MEDS: NYSTATIN TOPICAL POWDER 15 GM TP SCH ×4 (09:27→21:30)
[2019-05-01] MEDS: LACTULOSE SYRUP 20 GM/30 ML UDCUP PO SCH (09:28)
[2019-05-01] MEDS: HYDROCHLOROTHIAZIDE 25 MG TABLET PO SCH (09:28)
[2019-05-01] MEDS: FLUTICASONE NASAL SPRAY 50 MCG/SPRY 120 SPRAY/16 GM NASL SCH ×2 (09:28→21:27)
[2019-05-01] MEDS: LISINOPRIL 5 MG TABLET PO SCH (09:29)
[2019-05-01] MEDS: DOCUSATE SODIUM 100 MG CAPSULE PO SCH ×2 (09:29→18:05)
[2019-05-01] MEDS: ESCITALOPRAM OXALATE 10 MG TABLET PO SCH (09:30)
[2019-05-01] MEDS: METOPROLOL SUCCINATE 25 MG TAB.SR.24H PO SCH (09:30)
[2019-05-01] MEDS: ISOSORBIDE MONONITRATE 30 MG TAB.ER.24H PO SCH (09:31)
[2019-05-01] MEDS: ATENOLOL 50 MG TABLET PO SCH (09:31)
[2019-05-01] MEDS: ROFLUMILAST 500 MCG TABLET PO SCH (09:33)
[2019-05-01] MEDS: FLUTICASONE/VILANTEROL 200-25 MCG/DOSE IH SCH (09:33)
[2019-05-01] MEDS: TIOTROPIUM BROMIDE DPI 5 CAP/KIT (18 MCG/CAP) IH SCH (09:34)
[2019-05-01] MEDS: NYSTATIN 500000 UNIT/5 ML UDCUP PO SCH ×4 (09:37→21:28)
[2019-05-01] MEDS: ALPRAZOLAM 0.25 MG TABLET PO PRN (13:39)
[2019-05-01] MEDS: CETIRIZINE 5 MG TABLET PO SCH (18:05)
--- NOTE | 2019-05-01 18:54 | PDOC PROGRESS REPORT ---
Subjective Progress Note for:: 05/01/19 Subjective:: Patient had a better night. Her breathing is not as labored today. She is still tight but feels that she has made headway from yesterday. No fevers or chills. Nausea or vomiting. Able to eat without too much difficulty. We had a long talk about her hospice eligibility but she states that her goals are not quite in line with hospice at this time. Reason For Visit: EXACERBATION COPD, ACUTE BRONCHITIS Physical Exam Vital Signs: Temp Pulse Resp BP Pulse Ox 98.9 F 76 23 H 108/55 L 95 05/01/19 12:48 05/01/19 16:20 05/01/19 16:20 05/01/19 12:48 05/01/19 16:20 Intake & Output 04/30/19 05/01/19 05/02/19 06:59 06:59 06:59 Intake Total 1630 720 Balance 1630 720 Weight 69.1 kg General appearance: PRESENT: no acute distress, cooperative Head exam: PRESENT: atraumatic, normocephalic Eye exam: PRESENT: EOMI. ABSENT: conjunctival injection, scleral icterus Mouth exam: PRESENT: moist, tongue midline Neck exam: ABSENT: tracheostomy Respiratory exam: PRESENT: decreased breath sounds, unlabored, wheezes. ABSENT: rales, rhonchi Cardiovascular exam: PRESENT: RRR, +S1, +S2 GI/Abdominal exam: PRESENT: normal bowel sounds, soft. ABSENT: distended, firm, guarding, tenderness Rectal exam: PRESENT: deferred Extremities exam: ABSENT: calf tenderness Neurological exam: PRESENT: alert, altered, oriented to person, oriented to place, oriented to situation, CN II-XII grossly intact Psychiatric exam: PRESENT: appropriate affect. ABSENT: anxious Skin exam: PRESENT: dry, intact, warm Results Laboratory Results: 05/01/19 05:47 05/01/19 05:47 04/30/19 05/01/19 05/01/19 19:50 05:47 05:47 WBC 7.9 RBC 3.16 L Hgb 9.4 L Hct 27.5 L MCV 87 MCH 29.7 MCHC 34.2 RDW 17.7 H Plt Count 204 Carbonic Acid 1.62 H HCO3/H2CO3 Ratio 22:1 ABG pH 7.46 H ABG pCO2 53.8 H ABG pO2 82.0 ABG HCO3 37.1 H ABG O2 Saturation 96.3 ABG Base Excess 11.6 FiO2 30% Sodium 134.9 L Potassium 4.5 Chloride 91 L Carbon Dioxide 37 H Anion Gap 7 BUN 21 H Creatinine 0.55 Est GFR ( Amer) > 60 Est GFR (Non-Af Amer) > 60 Glucose 116 H Calcium 8.9 04/25/19 17:18 Blood Blood Culture - Final NO GROWTH IN 5 DAYS 04/25/19 16:25 Blood Blood Culture - Final NO GROWTH IN 5 DAYS 04/25/19 16:25 CK-MB (CK-2) 0.67 Troponin I < 0.012 Impressions: Chest X-Ray 04/25/19 16:18 IMPRESSION: Severe emphysema. Assessment and Plan - Diagnosis (1) Dyspnea Qualifiers: Dyspnea type: other forms of dyspnea Qualified Code(s): R06.09 - Other forms of dyspnea Is this a current diagnosis for this admission?: Yes Plan: related to COPD exacerbation. We will continue with current care, IV steroids, inhaled bronchodilators, BiPAP. She is definitely not back to baseline but she is improved from yesterday. Have also started her oral morphine for dyspnea as needed. (2) Acute bronchitis Qualifiers: Bronchitis organism: unspecified organism Qualified Code(s): J20.9 - Acute bronchitis, unspecified Is this a current diagnosis for this admission?: Yes Plan: She completed a course of azithromycin. (3) COPD exacerbation Is this a current diagnosis for this admission?: Yes Plan: Please see plan for dyspnea above. (4) Restless legs syndrome Is this a current diagnosis for this admission?: Yes Plan: Continue ropinirole. (5) Thrush Is this a current diagnosis for this admission?: Yes Plan: Has oral thrush. I was going to give her a dose of fluconazole orally but she has multiple other QT prolonging agents and so I have started nystatin swish and swallow 4 times daily. - Time Time Spent with patient: 25-34 minutes Medications reviewed and adjusted accordingly: Yes - Inpatient Certification Based on my medical assessment, after consideration of the patient's comorbidities, presenting symptoms, or acuity I expect that the services needed warrant INPATIENT care.: Yes I certify that my determination is in accordance with my understanding of Medicare's requirements for reasonable and necessary INPATIENT services [42 CFR 412.3e].: Yes Medical Necessity: Significant Comorbidiites Make Outpatient Treatment Too Risky, Need Close Monitoring Due to Risk of Patient Decompensation, Risk of Complication if Not Cared For in Hospital
[2019-05-01] MEDS: MONTELUKAST SODIUM 10 MG TABLET PO SCH (21:28)
[2019-05-01] MEDS: ROPINIROLE HCL 1 MG TABLET PO SCH (21:28)
[2019-05-01] MEDS: GABAPENTIN 100 MG CAPSULE PO SCH (21:28)
[2019-05-02] MEDS: IPRATROPIUM/ALBUTEROL 0.5-2.5 MG/3 ML AMPUL NEB SCH ×6 (04:01→23:54)
[2019-05-02] MEDS: LEVOTHYROXINE SODIUM 0.025 MG TABLET PO SCH (05:10)
[2019-05-02] MEDS: PANTOPRAZOLE SODIUM 40 MG TABLET.DR PO SCH (05:10)
[2019-05-02] MEDS: ACETAMINOPHEN 325 MG TABLET PO PRN ×2 (05:10→12:01)
[2019-05-02] MEDS: METHYLPREDNISOLONE INJ 40 MG/1 ML SDV IV SCH ×2 (05:10→13:36)
[2019-05-02] MEDS: HEPARIN SOD (PORCINE) 5,000 UNIT/ML 1 ML SYRINGE SUBCUT SCH ×2 (05:13→13:37)
[2019-05-02 07:30] LABS: HEMOGLOBIN 9.8 g/dL (12.0-15.5); MEAN CORPUSCULAR HEMOGLOBIN 29.8 pg (27.0-33.4); MEAN CORPUSCULAR HGB CONC 33.9 g/dL (32.0-36.0); MEAN CORPUSCULAR VOLUME 88 fl (80-97); PLATELET COUNT 222 10^3/uL (150-450); RED CELL DISTRIBUTION WIDTH 17.9 % (11.5-14.0); WHITE BLOOD COUNT 10.1 10^3/uL (4.0-10.5)
[2019-05-02 08:11] LABS: ANION GAP 6 (5-19); BLOOD UREA NITROGEN 24 mg/dL (7-20); CALCIUM 8.8 mg/dL (8.4-10.2); CARBON DIOXIDE 37 mmol/L (22-30); CHLORIDE 91 mmol/L (98-107); GLUCOSE 129 mg/dL (75-110); POTASSIUM 4.7 mmol/L (3.6-5.0); SODIUM 134.1 mmol/L (137-145)
[2019-05-02] MEDS: LACTULOSE SYRUP 20 GM/30 ML UDCUP PO SCH (09:36)
[2019-05-02] MEDS: DOCUSATE SODIUM 100 MG CAPSULE PO SCH ×2 (09:36→17:22)
[2019-05-02] MEDS: NYSTATIN 500000 UNIT/5 ML UDCUP PO SCH ×3 (09:37→17:25)
[2019-05-02] MEDS: HYDROCHLOROTHIAZIDE 25 MG TABLET PO SCH (09:37)
[2019-05-02] MEDS: ISOSORBIDE MONONITRATE 30 MG TAB.ER.24H PO SCH (09:37)
[2019-05-02] MEDS: METOPROLOL SUCCINATE 25 MG TAB.SR.24H PO SCH (09:38)
[2019-05-02] MEDS: FLUTICASONE NASAL SPRAY 50 MCG/SPRY 120 SPRAY/16 GM NASL SCH (09:38)
[2019-05-02] MEDS: ATENOLOL 50 MG TABLET PO SCH (09:38)
[2019-05-02] MEDS: ESCITALOPRAM OXALATE 10 MG TABLET PO SCH (09:39)
[2019-05-02] MEDS: LISINOPRIL 5 MG TABLET PO SCH (09:40)
[2019-05-02] MEDS: ROFLUMILAST 500 MCG TABLET PO SCH (09:40)
[2019-05-02] MEDS: TIOTROPIUM BROMIDE DPI 5 CAP/KIT (18 MCG/CAP) IH SCH (09:41)
[2019-05-02] MEDS: ZINC OXIDE 20% OINTMENT 28.35 GM TP SCH ×3 (09:42→17:26)
[2019-05-02] MEDS: NYSTATIN TOPICAL POWDER 15 GM TP SCH ×3 (09:42→17:25)
[2019-05-02] MEDS: FLUTICASONE/VILANTEROL 200-25 MCG/DOSE IH SCH (09:42)
[2019-05-02] MEDS: CETIRIZINE 5 MG TABLET PO SCH (17:25)
--- NOTE | 2019-05-02 18:27 | Progress Note Acknowledgement ---
Progress Note Acknowledgement Progess Note Acknowledgement: I, the undersigned member of the medical staff with appropriate privileges and with supervisory authority over Serenity Bai, a [facility] practice allied health professional, acknowledge that I have reviewed the progress notes entered on this patient, and in my professional judgment believe that the assessment made and/or any care evidenced was appropriate
--- NOTE | 2019-05-02 18:34 | PDOC PROGRESS REPORT ---
Subjective Progress Note for:: 05/02/19 Subjective:: Patient is a 58-year-old female with a past medical history of diastolic heart failure, pulmonary hypertension, anemia, thrombocytopenia, persistent tobacco dependence, alpha-1 antitrypsin deficiency, steroid and oxygen dependent COPD with chronic respiratory failure on trilogy who was admitted 04/26/2019 for COPD exacerbation. Patient was seen on afternoon rounds. She is found resting in bed comfortably on her baseline supplemental oxygen requirement. She tells me that she is feeling much better as compared to the time of her admission and is approaching her baseline respiratory status. She does report continued dyspnea with exertion though denies wheezing and productive cough. She further denies fever, chills, chest pain, palpitations, orthopnea, abdominal pain, nausea vomiting and diarrhea. She reports good appetite. She has no new questions or concerns. No concerns per nursing. Reason For Visit: EXACERBATION COPD, ACUTE BRONCHITIS Physical Exam Vital Signs: Temp Pulse Resp BP Pulse Ox 98.5 F 77 16 115/60 100 05/02/19 15:03 05/02/19 15:03 05/02/19 15:03 05/02/19 15:03 05/02/19 15:03 Intake & Output 05/01/19 05/02/19 05/03/19 06:59 06:59 06:59 Intake Total 720 1820 980 Output Total 10 Balance 720 1810 980 Weight 70.2 kg General appearance: PRESENT: no acute distress, cooperative, well-developed, well-nourished Head exam: PRESENT: atraumatic, normocephalic Eye exam: PRESENT: conjunctiva pink, EOMI, PERRLA. ABSENT: scleral icterus Mouth exam: PRESENT: moist, tongue midline Neck exam: ABSENT: carotid bruit, JVD, lymphadenopathy, thyromegaly Respiratory exam: PRESENT: decreased breath sounds - Throughout, prolonged expiratory phas, symmetrical, unlabored, other - Baseline oxygen requirement. ABSENT: rales, rhonchi, wheezes Cardiovascular exam: PRESENT: RRR, +S1, +S2. ABSENT: diastolic murmur, rubs, systolic murmur Pulses: PRESENT: normal dorsalis pedis pul Vascular exam: PRESENT: normal capillary refill GI/Abdominal exam: PRESENT: normal bowel sounds, soft. ABSENT: distended, guarding, mass, organolmegaly, rebound, tenderness Rectal exam: PRESENT: deferred Extremities exam: PRESENT: full ROM. ABSENT: calf tenderness, clubbing, pedal edema Musculoskeletal exam: PRESENT: ambulatory Neurological exam: PRESENT: alert, awake, oriented to person, oriented to place, oriented to time, oriented to situation, CN II-XII grossly intact. ABSENT: motor sensory deficit Psychiatric exam: PRESENT: appropriate affect, normal mood. ABSENT: homicidal ideation, suicidal ideation Skin exam: PRESENT: dry, intact, warm. ABSENT: cyanosis, rash Results Laboratory Results: 05/02/19 07:15 05/02/19 07:15 05/02/19 05/02/19 07:15 07:15 WBC 10.1 RBC 3.30 L Hgb 9.8 L Hct 29.0 L MCV 88 MCH 29.8 MCHC 33.9 RDW 17.9 H Plt Count 222 Sodium 134.1 L Potassium 4.7 Chloride 91 L Carbon Dioxide 37 H Anion Gap 6 BUN 24 H Creatinine 0.62 Est GFR ( Amer) > 60 Est GFR (Non-Af Amer) > 60 Glucose 129 H Calcium 8.8 Magnesium 2.2 04/25/19 16:25 CK-MB (CK-2) 0.67 Troponin I < 0.012 Impressions: Chest X-Ray 04/25/19 16:18 IMPRESSION: Severe emphysema. Assessment and Plan - Diagnosis (1) COPD exacerbation Is this a current diagnosis for this admission?: Yes Plan: Patient is admitted to the medical floor. She is provided supplemental oxygen and BiPAP as needed to maintain oxygen saturations. She utilizes 3 L/min via nasal cannula and trilogy at home. She has completed a course of azithromycin. She was placed on IV Solu-Medrol; have begun weaning. Have resumed her home medication regiment of Spiriva, Breo, Daliresp, and Pulmicort. Continue scheduled and as needed nebulizer treatments. Continue Mucinex twice daily. Singulair and Zyrtec daily. Incentive spirometer and flutter valve to bedside. (2) Acute bronchitis Qualifiers: Bronchitis organism: unspecified organism Qualified Code(s): J20.9 - Acute bronchitis, unspecified Is this a current diagnosis for this admission?: Yes Plan: Improved; patient denies productive cough. Blood cultures negative at 5 days. She has completed a course of azithromycin. (3) Chronic diastolic CHF (congestive heart failure) Is this a current diagnosis for this admission?: Yes Plan: Compensated. We will continue the patient's home medication regiment of Atenolol, Imdur, lisinopril, metoprolol, and HCTZ. Cardiac diet. (4) Dyspnea Qualifiers: Dyspnea type: other forms of dyspnea Qualified Code(s): R06.09 - Other forms of dyspnea Is this a current diagnosis for this admission?: Yes Plan: Secondary to acute bronchitis and COPD exacerbation further complicated by chronic diastolic heart failure, chronic respiratory failure, and pulmonary hypertension. Evaluation management as above. (5) Thrush Is this a current diagnosis for this admission?: Yes Plan: Has oral thrush. Nystatin swish and swallow 4 times daily. Patient is reminded to rinse her mouth appropriately following her maintenance COPD medications. (6) Tobacco dependency Is this a current diagnosis for this admission?: Yes Plan: Smoking cessation strongly encouraged. (7) Restless legs syndrome Is this a current diagnosis for this admission?: Yes Plan: Continue ropinirole. - Time Time Spent with patient: 25-34 minutes Medications reviewed and adjusted accordingly: Yes Anticipated discharge: Home Within: within 48 hours
[2019-05-02] MEDS: BUDESONIDE NEB 0.5 MG/2 ML AMPUL NEB SCH (20:33)
[2019-05-03] MEDS: FLUTICASONE NASAL SPRAY 50 MCG/SPRY 120 SPRAY/16 GM NASL SCH ×3 (02:23→22:21)
[2019-05-03] MEDS: MONTELUKAST SODIUM 10 MG TABLET PO SCH ×2 (02:24→22:22)
[2019-05-03] MEDS: HEPARIN SOD (PORCINE) 5,000 UNIT/ML 1 ML SYRINGE SUBCUT SCH ×4 (02:25→22:22)
[2019-05-03] MEDS: NYSTATIN 500000 UNIT/5 ML UDCUP PO SCH ×5 (02:25→22:22)
[2019-05-03] MEDS: GABAPENTIN 100 MG CAPSULE PO SCH ×2 (02:26→22:23)
[2019-05-03] MEDS: NYSTATIN TOPICAL POWDER 15 GM TP SCH ×4 (02:26→17:21)
[2019-05-03] MEDS: ROPINIROLE HCL 1 MG TABLET PO SCH ×2 (02:27→22:23)
[2019-05-03] MEDS: METHYLPREDNISOLONE INJ 40 MG/1 ML SDV IV SCH ×3 (02:29→14:49)
[2019-05-03] MEDS: ZINC OXIDE 20% OINTMENT 28.35 GM TP SCH ×5 (02:30→22:27)
[2019-05-03] MEDS: IPRATROPIUM/ALBUTEROL 0.5-2.5 MG/3 ML AMPUL NEB SCH ×6 (03:45→23:56)
[2019-05-03 06:08] LABS: HEMATOCRIT 29.6 % (36.0-47.0); HEMOGLOBIN 10.1 g/dL (12.0-15.5); MEAN CORPUSCULAR HEMOGLOBIN 29.8 pg (27.0-33.4); MEAN CORPUSCULAR HGB CONC 34.1 g/dL (32.0-36.0); MEAN CORPUSCULAR VOLUME 88 fl (80-97); PLATELET COUNT 226 10^3/uL (150-450); RED BLOOD COUNT 3.39 10^6/uL (3.72-5.28); WHITE BLOOD COUNT 11.4 10^3/uL (4.0-10.5)
[2019-05-03] MEDS: LEVOTHYROXINE SODIUM 0.025 MG TABLET PO SCH (06:19)
[2019-05-03] MEDS: PANTOPRAZOLE SODIUM 40 MG TABLET.DR PO SCH (06:21)
[2019-05-03 06:38] LABS: ANION GAP 7 (5-19); BLOOD UREA NITROGEN 24 mg/dL (7-20); CALCIUM 8.7 mg/dL (8.4-10.2); CARBON DIOXIDE 36 mmol/L (22-30); CHLORIDE 89 mmol/L (98-107); GLUCOSE 89 mg/dL (75-110); POTASSIUM 4.5 mmol/L (3.6-5.0); SODIUM 131.5 mmol/L (137-145)
[2019-05-03] MEDS: IBUPROFEN 800 MG TABLET PO PRN (07:52)
[2019-05-03] MEDS: BUDESONIDE NEB 0.5 MG/2 ML AMPUL NEB SCH ×2 (07:54→19:25)
[2019-05-03] MEDS: DOCUSATE SODIUM 100 MG CAPSULE PO SCH ×2 (11:10→17:20)
[2019-05-03] MEDS: ACETAMINOPHEN 325 MG TABLET PO PRN (11:19)
[2019-05-03] MEDS: ISOSORBIDE MONONITRATE 30 MG TAB.ER.24H PO SCH (11:19)
[2019-05-03] MEDS: HYDROCHLOROTHIAZIDE 25 MG TABLET PO SCH (11:20)
[2019-05-03] MEDS: ATENOLOL 50 MG TABLET PO SCH (11:20)
[2019-05-03] MEDS: LISINOPRIL 5 MG TABLET PO SCH (11:22)
[2019-05-03] MEDS: ESCITALOPRAM OXALATE 10 MG TABLET PO SCH (11:22)
[2019-05-03] MEDS: METOPROLOL SUCCINATE 25 MG TAB.SR.24H PO SCH (11:22)
[2019-05-03] MEDS: ALPRAZOLAM 0.25 MG TABLET PO PRN (11:22)
[2019-05-03] MEDS: LACTULOSE SYRUP 20 GM/30 ML UDCUP PO SCH (11:23)
[2019-05-03] MEDS: ROFLUMILAST 500 MCG TABLET PO SCH (11:24)
[2019-05-03] MEDS: FLUTICASONE/VILANTEROL 200-25 MCG/DOSE IH SCH (11:25)
[2019-05-03] MEDS: TIOTROPIUM BROMIDE DPI 5 CAP/KIT (18 MCG/CAP) IH SCH (11:27)
[2019-05-03] MEDS: CETIRIZINE 5 MG TABLET PO SCH (17:20)
--- NOTE | 2019-05-03 19:11 | Progress Note Acknowledgement ---
Progress Note Acknowledgement Progess Note Acknowledgement: I, the undersigned member of the medical staff with appropriate privileges and with supervisory authority over Serenity Bai, a [facility] practice allied health professional, acknowledge that I have reviewed the progress notes entered on this patient, and in my professional judgment believe that the assessment made and/or any care evidenced was appropriate
--- NOTE | 2019-05-03 19:13 | EKG REPORT ---
SEVERITY:- NORMAL ECG - SINUS RHYTHM : Confirmed by: Anuel Arevalo MD 03-May-2019 19:12:15
--- NOTE | 2019-05-03 19:16 | PDOC PROGRESS REPORT ---
Subjective Progress Note for:: 05/03/19 Subjective:: Patient is a 58-year-old female with a past medical history of diastolic heart failure, pulmonary hypertension, anemia, thrombocytopenia, persistent tobacco dependence, alpha-1 antitrypsin deficiency, steroid and oxygen dependent COPD with chronic respiratory failure on trilogy who was admitted 04/26/2019 for COPD exacerbation. Patient was seen on afternoon rounds. She is found resting in bed comfortably on her baseline supplemental oxygen requirement. She reports continued slight dyspnea, though overall improved. She denies wheezing and productive cough. Patient reports she feels "nervous" about discharge to home but is not interested in SNF. She is agreeable to home health services. She further denies fever, chills, chest pain, palpitations, orthopnea, abdominal pain, nausea vomiting and diarrhea. She reports good appetite. She has no new questions or concerns. No concerns per nursing. Reason For Visit: EXACERBATION COPD, ACUTE BRONCHITIS Physical Exam Vital Signs: Temp Pulse Resp BP Pulse Ox 98.0 F 82 16 123/59 L 96 05/03/19 07:41 05/03/19 15:21 05/03/19 15:21 05/03/19 07:41 05/03/19 15:21 Intake & Output 05/02/19 05/03/19 05/04/19 06:59 06:59 06:59 Intake Total 9046 232 9042 Output Total 10 Balance 2895 228 8116 Weight 70.2 kg General appearance: PRESENT: no acute distress, cooperative, well-developed, well-nourished Head exam: PRESENT: atraumatic, normocephalic Eye exam: PRESENT: conjunctiva pink, EOMI, PERRLA. ABSENT: scleral icterus Mouth exam: PRESENT: moist, tongue midline Neck exam: ABSENT: carotid bruit, JVD, lymphadenopathy, thyromegaly Respiratory exam: PRESENT: clear to auscultation lashell, prolonged expiratory phas, symmetrical, unlabored, other - baseline oxygen requirement. ABSENT: rales, rhonchi, wheezes Cardiovascular exam: PRESENT: RRR, +S1, +S2, other - intermittent tachycardia noted in record/telemetry is incorrect; palpated pulse in mid 80s (youth nutritional monitor occ reading T-wave as PVC). ABSENT: diastolic murmur, rubs, systolic murmur Pulses: PRESENT: normal dorsalis pedis pul Vascular exam: PRESENT: normal capillary refill GI/Abdominal exam: PRESENT: normal bowel sounds, soft. ABSENT: distended, guarding, mass, organolmegaly, rebound, tenderness Rectal exam: PRESENT: deferred Extremities exam: PRESENT: full ROM. ABSENT: calf tenderness, clubbing, pedal edema Neurological exam: PRESENT: alert, awake, oriented to person, oriented to place, oriented to time, oriented to situation, CN II-XII grossly intact. ABSENT: motor sensory deficit Psychiatric exam: PRESENT: appropriate affect, normal mood. ABSENT: homicidal ideation, suicidal ideation Skin exam: PRESENT: dry, intact, warm. ABSENT: cyanosis, rash Results Laboratory Results: 05/03/19 05:26 05/03/19 05:26 05/03/19 05/03/19 05:26 05:26 WBC 11.4 H RBC 3.39 L Hgb 10.1 L Hct 29.6 L MCV 88 MCH 29.8 MCHC 34.1 RDW 18.0 H Plt Count 226 Sodium 131.5 L Potassium 4.5 Chloride 89 L Carbon Dioxide 36 H Anion Gap 7 BUN 24 H Creatinine 0.66 Est GFR ( Amer) > 60 Est GFR (Non-Af Amer) > 60 Glucose 89 Calcium 8.7 04/25/19 16:25 CK-MB (CK-2) 0.67 Troponin I < 0.012 Impressions: Chest X-Ray 04/25/19 16:18 IMPRESSION: Severe emphysema. Assessment and Plan - Diagnosis (1) COPD exacerbation Is this a current diagnosis for this admission?: Yes Plan: Improved; now on baseline oxygen requirement. Patient is admitted to the medical floor. She is provided supplemental oxygen and BiPAP as needed to maintain oxygen satur ations. She utilizes 3 L/min via nasal cannula and trilogy at home. She has completed a course of azithromycin. She was placed on IV Solu-Medrol; have transitioned to p.o. prednisone today.. Have resumed her home medication regiment of Spiriva, Breo, Daliresp, and Pulmicort. Continue scheduled and as needed nebulizer treatments. Continue Mucinex twice daily. Singulair and Zyrtec daily. Incentive spirometer and flutter valve to bedside. (2) Acute bronchitis Qualifiers: Bronchitis organism: unspecified organism Qualified Code(s): J20.9 - Acute bronchitis, unspecified Is this a current diagnosis for this admission?: Yes Plan: Resolved. Patient denies productive cough. Blood cultures negative at 5 days. She has completed a course of azithromycin. (3) Chronic diastolic CHF (congestive heart failure) Is this a current diagnosis for this admission?: Yes Plan: Compensated. We will continue the patient's home medication regiment of Atenolol, Imdur, lisinopril, metoprolol, and HCTZ. Cardiac diet. (4) Dyspnea Qualifiers: Dyspnea type: other forms of dyspnea Qualified Code(s): R06.09 - Other forms of dyspnea Is this a current diagnosis for this admission?: Yes Plan: Secondary to acute bronchitis and COPD exacerbation further complicated by chronic diastolic heart failure, chronic respiratory failure, and pulmonary hypertension. Evaluation management as above. (5) Thrush Is this a current diagnosis for this admission?: Yes Plan: Has oral thrush. Nystatin swish and swallow 4 times daily. Patient is reminded to rinse her mouth appropriately following her maintenance COPD medications. (6) Tobacco dependency Is this a current diagnosis for this admission?: Yes Plan: Smoking cessation strongly encouraged. (7) Restless legs syndrome Is this a current diagnosis for this admission?: Yes Plan: Continue ropinirole. (8) Generalized weakness Is this a current diagnosis for this admission?: Yes Plan: Patient reports generalized weakness; only able to ambulate 20 feet prior to becoming significantly fatigued. She reports that this is a decrease from her baseline. Discussed option for SNF for short-term rehab; patient adamantly denies. She is agreeable to home health services. We will consult discharge planning. - Time Time Spent with patient: 35 or more minutes Medications reviewed and adjusted accordingly: Yes Anticipated discharge: Home with Homehealth Within: within 24 hours
[2019-05-03] MEDS ORDERED: ROPINIROLE HCL 1 MG TABLET ONE (22:21)
[2019-05-04] MEDS: IPRATROPIUM/ALBUTEROL 0.5-2.5 MG/3 ML AMPUL NEB SCH ×3 (04:12→11:55)
[2019-05-04] MEDS: HEPARIN SOD (PORCINE) 5,000 UNIT/ML 1 ML SYRINGE SUBCUT SCH ×2 (05:38→13:39)
[2019-05-04] MEDS: LEVOTHYROXINE SODIUM 0.025 MG TABLET PO SCH (05:38)
[2019-05-04] MEDS: PANTOPRAZOLE SODIUM 40 MG TABLET.DR PO SCH (05:38)
[2019-05-04 06:27] LABS: HEMATOCRIT 29.8 % (36.0-47.0); HEMOGLOBIN 9.9 g/dL (12.0-15.5); MEAN CORPUSCULAR HEMOGLOBIN 29.4 pg (27.0-33.4); MEAN CORPUSCULAR HGB CONC 33.3 g/dL (32.0-36.0); MEAN CORPUSCULAR VOLUME 88 fl (80-97); PLATELET COUNT 232 10^3/uL (150-450); RED BLOOD COUNT 3.39 10^6/uL (3.72-5.28); RED CELL DISTRIBUTION WIDTH 18.1 % (11.5-14.0)
[2019-05-04 06:54] LABS: ANION GAP 5 (5-19); BLOOD UREA NITROGEN 32 mg/dL (7-20); CALCIUM 8.7 mg/dL (8.4-10.2); CARBON DIOXIDE 37 mmol/L (22-30); CHLORIDE 90 mmol/L (98-107); GLUCOSE 90 mg/dL (75-110); POTASSIUM 5.1 mmol/L (3.6-5.0); SODIUM 132.3 mmol/L (137-145)
[2019-05-04] MEDS: BUDESONIDE NEB 0.5 MG/2 ML AMPUL NEB SCH (07:54)
[2019-05-04] MEDS: METOPROLOL SUCCINATE 25 MG TAB.SR.24H PO SCH (09:23)
[2019-05-04] MEDS: ESCITALOPRAM OXALATE 10 MG TABLET PO SCH (09:23)
[2019-05-04] MEDS: HYDROCHLOROTHIAZIDE 25 MG TABLET PO SCH (09:23)
[2019-05-04] MEDS: ISOSORBIDE MONONITRATE 30 MG TAB.ER.24H PO SCH (09:24)
[2019-05-04] MEDS: ATENOLOL 50 MG TABLET PO SCH (09:24)
[2019-05-04] MEDS: LISINOPRIL 5 MG TABLET PO SCH (09:24)
[2019-05-04] MEDS: NYSTATIN 500000 UNIT/5 ML UDCUP PO SCH ×2 (09:25→13:42)
[2019-05-04] MEDS: FLUTICASONE NASAL SPRAY 50 MCG/SPRY 120 SPRAY/16 GM NASL SCH (09:25)
[2019-05-04] MEDS: DOCUSATE SODIUM 100 MG CAPSULE PO SCH (09:25)
[2019-05-04] MEDS: LACTULOSE SYRUP 20 GM/30 ML UDCUP PO SCH (09:25)
[2019-05-04] MEDS: FLUTICASONE/VILANTEROL 200-25 MCG/DOSE IH SCH (09:26)
[2019-05-04] MEDS: ROFLUMILAST 500 MCG TABLET PO SCH (09:26)
[2019-05-04] MEDS: TIOTROPIUM BROMIDE DPI 5 CAP/KIT (18 MCG/CAP) IH SCH (09:27)
[2019-05-04] MEDS: ZINC OXIDE 20% OINTMENT 28.35 GM TP SCH ×2 (09:28→13:40)
[2019-05-04] MEDS ORDERED: PREDNISONE 20 MG TABLET PO SCH (10:00)
[2019-05-04] MEDS: ACETAMINOPHEN 325 MG TABLET PO PRN (12:30)
[2019-05-04] MEDS: ALPRAZOLAM 0.25 MG TABLET PO PRN (13:39)
[2019-05-04 13:50] VITALS: BP 125/61
--- NOTE | 2019-05-05 21:55 | PDOC DISCHARGE SUMMARY ---
General - Admit/Disc Date/PCP Admission Date/Primary Care Provider: 04/26/19 15:32 Discharge Date: 05/04/19 - Discharge Diagnosis (1) COPD exacerbation Is this a current diagnosis for this admission?: Yes (2) Acute bronchitis Is this a current diagnosis for this admission?: Yes (3) Chronic diastolic CHF (congestive heart failure) Is this a current diagnosis for this admission?: Yes (4) Dyspnea Is this a current diagnosis for this admission?: Yes (5) Thrush Is this a current diagnosis for this admission?: Yes (6) Tobacco dependency Is this a current diagnosis for this admission?: Yes (7) Restless legs syndrome Is this a current diagnosis for this admission?: Yes (8) Generalized weakness Is this a current diagnosis for this admission?: Yes - Additional Information Resuscitation Status: Full Code Discharge Diet: Cardiac Discharge Activity: Activity As Tolerated, Balance Activity w/Rest, Weigh Daily Prescriptions: Alprazolam [Xanax 0.25 mg Tablet] 0.125 mg PO Q8HP PRN #9 tablet PRN Reason: Escitalopram Oxalate [Lexapro 10 mg Tablet] 10 mg PO DAILY #30 tablet Fluticasone Propionate [Flonase Nasal [place] 50 Mcg/[place] 16 gm] 2 spray NASL Q12 #1 spray.pump Nystatin [Mycostatin 500,000 Unit/5 ml Susp Udcup] 500,000 unit PO QID #40 udc Prednisone [Deltasone 20 mg Tablet] 60 mg PO DAILY #9 tablet Home Medications: Gabapentin [Neurontin 100 mg Capsule] 100 mg PO QHS 01/06/19 Ibuprofen [Motrin 800 mg Tablet] 800 mg PO Q6HP PRN 01/06/19 Levocetirizine Dihydrochloride [Xyzal] 5 mg PO QPM 01/06/19 Levothyroxine Sodium [Synthroid 0.025 mg Tablet] 0.025 mg PO Q6AM 01/06/19 Montelukast Sodium [Singulair 10 mg Tablet] 10 mg PO DAILY 01/06/19 Omeprazole 40 mg PO QAM 01/06/19 Roflumilast [Daliresp 500 mcg Tablet] 500 mcg PO DAILY 01/06/19 Ropinirole HCl [Requip] 1 mg PO QHS 01/06/19 Budesonide/Formoterol Fumarate [Symbicort HFA 160-4.5 mcg Inhaler 6 gm] 2 puff IH Q12 1 Days #1 inhaler 01/12/19 Tiotropium [place] [Spiriva Respimat] 2 puff IH DAILY #2 mist.inhal 01/12/19 Albuterol Sulfate [Proventil Hfa] 1 puff IH Q4HP PRN 03/17/19 Cyanocobalamin (Vitamin B-12) [Vitamin B-12 Inj 1000 Mcg/1 ml Vial] 1,000 mcg IM .MONTHLY 03/17/19 Isosorbide Mononitrate [Imdur 30 mg Tablet.er] 15 mg PO DAILY 03/17/19 Budesonide [Pulmicort Neb 0.5 mg/2 ml Ampul] 0.5 mg NEB RTQ12 ampul.neb 04/01/19 Docusate Sodium [Colace 100 mg Capsule] 100 mg PO BID capsule 04/01/19 Hydrochlorothiazide [Hydrodiuril 25 mg Tablet] 25 mg PO DAILY tablet 04/01/19 Ipratropium/Albuterol Sulfate [Duoneb 3 ml Ampul] 3 ml NEB RTQ4 vial.neb 04/01/19 Lisinopril [Prinivil 5 mg Tablet] 5 mg PO DAILY tablet 04/01/19 Metoprolol Succinate [Toprol Xl 25 mg Tab.sr] 25 mg PO DAILY tab.sr.24h 04/01/19 Nystatin [Mycostatin Topical Powder 15 gm] 1 applic TP QID bottle 04/01/19 Zinc Oxide [Zinc Oxide 20% Ointment 28.35 gm] 1 applic TP QID tube 04/01/19 Bisoprolol Fumarate [Zebeta 5 mg Tablet] 2.5 mg PO DAILY 04/26/19 Prednisone [Deltasone 20 mg Tablet] 10 mg PO BID 04/26/19 Acetaminophen [Tylenol 325 mg Tablet] 650 mg PO Q4HP PRN tablet 05/04/19 Alprazolam [Xanax 0.25 mg Tablet] 0.125 mg PO Q8HP PRN #9 tablet 05/04/19 Escitalopram Oxalate [Lexapro 10 mg Tablet] 10 mg PO DAILY #30 tablet 05/04/19 Fluticasone Propionate [Flonase Nasal [place] 50 Mcg/[place] 16 gm] 2 spray NASL Q12 #1 spray.pump 05/04/19 Guaifenesin [Robitussin Syrup 200 mg/10 ml Ud Cup] 200 mg PO Q4HP PRN c 05/04/19 Nystatin [Mycostatin 500,000 Unit/5 ml Susp Udcup] 500,000 unit PO QID #40 c 05/04/19 Prednisone [Deltasone 20 mg Tablet] 60 mg PO DAILY #9 tablet 05/04/19 History of Present Illness History of Present Illness: Per H&P by Dr. David: AUDIE KIMBLE is a 58 year old female with a past medical history of diastolic heart failure, pulmonary hypertension, anemia, thrombocytopenia, persistent tobacco dependence, alpha-1 antitrypsin deficiency, steroid and oxygen dependent COPD with chronic respiratory failure on trilogy. She presents with 48 hours of rhinorrhea, postnasal drip, nonproductive cough and shortness of breath. In the emergency room she is found to have hypoxia in the 80s, tachypnea, tachycardia, retractions and use of accessory muscles. Imaging reveals severe COPD, labs reveal hyperkalemia, chronic compensated respiratory acidosis. She is referred to the hospitalist for admission. She denies fever, chest pain, nausea vomiting or recent change of medications. Hospital Course Hospital Course: The patient was admitted to the medical floor on continuous cardiac telemetry. She was provided supplemental oxygen and BiPAP as needed to maintain saturations greater than 89%. She was supported with scheduled and as needed nebulizer treatment, IV Solu-Medrol, Mucinex, and pulmonary toilet. She was treated with a full course of azithromycin for treatment of her bronchitis. Her resolved and she was transitioned from IV Solu-Medrol to p.o. prednisone to complete course of steroid therapy. Scheduled nebulizer treatments were weaned and her home medication regiment of Spiriva, Breo, Daliresp, and Pulmicort were resumed. The patient's chronic diastolic heart failure remained compensated throughout her admission. She continued on her home medication regiment unchanged. Patient did develop thrush, she is receiving nystatin swish for treatment and is provided a prescription to continue following discharge. Discharge, the patient is in stable condition, maintaining oxygen saturations on her baseline oxygen requirement, asymptomatic, and requesting to discharge home. The patient was previously followed by [facility] palliative care; she requests they be notified of her discharge to the care can be resumed. Home health nursing and physical therapy services have been arranged. She is instructed to follow-up with her primary care provider within 1 week and with her established apprentice photographer as scheduled. She is advised to continue her medications as prescribed. She is strongly encouraged to stop smoking. She is instructed to return to the emergency department as needed for concerning symptoms. Physical Exam Vital Signs: Temp Pulse Resp BP Pulse Ox 97.8 F 82 18 119/58 L 97 05/04/19 07:48 05/04/19 07:59 05/04/19 07:59 05/04/19 07:48 05/04/19 07:59 Intake & Output 05/03/19 05/04/19 05/05/19 06:59 06:59 06:59 Intake Total 980 1180 Balance 980 1180 Weight 68 kg General appearance: PRESENT: no acute distress, well-developed, well-nourished Head exam: PRESENT: atraumatic, normocephalic Eye exam: PRESENT: conjunctiva pink, EOMI, PERRLA. ABSENT: scleral icterus Ear exam: PRESENT: normal external ear exam Mouth exam: PRESENT: moist, tongue midline Neck exam: ABSENT: carotid bruit, JVD, lymphadenopathy, thyromegaly Respiratory exam: PRESENT: clear to auscultation lashell, prolonged expiratory phas, symmetrical, unlabored, other - Baseline oxygen requirement. ABSENT: rales, rhonchi, wheezes Cardiovascular exam: PRESENT: RRR. ABSENT: diastolic murmur, rubs, systolic murmur Pulses: PRESENT: normal dorsalis pedis pul Vascular exam: PRESENT: normal capillary refill GI/Abdominal exam: PRESENT: normal bowel sounds, soft. ABSENT: distended, guarding, mass, organolmegaly, rebound, tenderness Rectal exam: PRESENT: deferred Extremities exam: PRESENT: full ROM. ABSENT: calf tenderness, clubbing, pedal edema Neurological exam: PRESENT: alert, awake, oriented to person, oriented to place, oriented to time, oriented to situation, CN II-XII grossly intact. ABSENT: m otor sensory deficit Psychiatric exam: PRESENT: appropriate affect, normal mood. ABSENT: homicidal ideation, suicidal ideation Skin exam: PRESENT: dry, intact, warm. ABSENT: cyanosis, rash Results Laboratory Results: 05/04/19 06:00 05/04/19 06:00 05/04/19 05/04/19 06:00 06:00 WBC 12.0 H RBC 3.39 L Hgb 9.9 L Hct 29.8 L MCV 88 MCH 29.4 MCHC 33.3 RDW 18.1 H Plt Count 232 Sodium 132.3 L Potassium 5.1 H Chloride 90 L Carbon Dioxide 37 H Anion Gap 5 BUN 32 H Creatinine 0.63 Est GFR ( Amer) > 60 Est GFR (Non-Af Amer) > 60 Glucose 90 Calcium 8.7 04/25/19 16:25 CK-MB (CK-2) 0.67 Troponin I < 0.012 Impressions: Chest X-Ray 04/25/19 16:18 IMPRESSION: Severe emphysema. Qualifiers - * PATIENT BEING DISCHARGED WITH ANY OF THE FOLLOWING DIAGNOSIS: No Acute Heart Failure - Is this a Heart Failure Patient?: No Plan Discharge Plan: The patient is discharged to home with home health services and palliative care referral. Follow-up with primary care provider within 1 week. Follow-up with established apprentice photographer as scheduled; sooner as needed. Take medications as prescribed. Do not smoke and avoid all other known triggers (dust, pollen, pet dander, heat). Return to the emergency department as needed for concerning symptoms. Time Spent: Greater than 30 Minutes
== END 2019-05-04 14:49 | disposition home health service (06) | DRG 191 ==
LOC: ER 15:48 → EH 04-26 02:44 → 4W 04-26 04:44 → OBSVTOIN 04-26 15:32 → 5 04-27 14:14
PROVIDERS: ADMIT Internal Medicine; ATTEND Internal Medicine
PROC: 5A09457 Assistance with Respiratory Ventilation, 24-96 Consecutive Hours, Continuous Positive Airway Pressure (ICD-10-PCS; principal; 2019-04-26)
DX: J44.1 Chronic obstructive pulmonary disease with (acute) exacerbation (principal); I50.32 Chronic diastolic (congestive) heart failure; J96.11 Chronic respiratory failure with hypoxia; Q39.6 Congenital diverticulum of esophagus; B37.0 Candidal stomatitis; J20.9 Acute bronchitis, unspecified; I27.20 Pulmonary hypertension, unspecified; D64.9 Anemia, unspecified; D69.6 Thrombocytopenia, unspecified; F17.210 Nicotine dependence, cigarettes, uncomplicated; E88.01 Alpha-1-antitrypsin deficiency; K21.9 Gastro-esophageal reflux disease without esophagitis; E78.5 Hyperlipidemia, unspecified; E87.5 Hyperkalemia; F41.9 Anxiety disorder, unspecified; G25.81 Restless legs syndrome; Z99.81 Dependence on supplemental oxygen; Z79.52 Long term (current) use of systemic steroids; Z79.899 Other long term (current) drug therapy; Z88.2 Allergy status to sulfonamides; Z88.8 Allergy status to other drugs, medicaments and biological substances; Z79.1 Long term (current) use of non-steroidal anti-inflammatories (NSAID); Z79.51 Long term (current) use of inhaled steroids
CPT/HCPCS: 36415; 36600; 71046; 80048; 80053; 82553; 82803; 83735; 84484; 85025; 85027; 87040; 93005; 93010; 94640; 94660; 94667; 94668; 94799; 96374; 99285; G0378; J0456; J1644; J2405; J2920; J2930; J3420; J3490; J7060; J7512; J7620